=== PATIENT | male | born 1965 | race Caucasian/White ===

== ENCOUNTER 2017-01-18 18:29 | Emergency (ER) | payer OTHER ==
[~2017-01-18] VITALS: Ht 177.8 cm; Wt 106.6 kg
[~2017-01-18 18:29] MED LIST: ASPIRIN EC325 MG PO; DEPAKOTE ER250 MG PO; DIVALPROEX SOD500 MG PO; MELOXICAM15 MG PO; NORCO 5-325 TA1 EACH PO; NORCO 7.5-3251 EACH PO; PENICILLIN V P500 MG PO; PERCOCET 7.5-31 EACH PO; TOPIRAMATE50 MG PO; VALPROIC ACID250 MG PO; VENTOLIN HFA18 GM INH
[2017-01-18] MEDS ORDERED: DEPAKOTE ER500 MG PO (18:44)
[2017-01-18] MEDS ORDERED: PANTOPRAZOLE SO40 MG PO (18:45)
[2017-01-18] MEDS ORDERED: VITAMIN D250000 UNIT PO (18:47)
[2017-01-18] MEDS ORDERED: DEMADEX20 MG PO (18:47)
[2017-01-18] MEDS ORDERED: MOTRIN IB200 MG PO (18:48)
--- OUTSIDE RECORDS SUMMARY | 2017-01-18 18:54 | XMS ---
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 | Phone | + + + + Unavailable | Unavailable | + + + + PROBLEMS Unknown Problems ALLERGIES No Known Allergies SOCIAL HISTORY Never Assessed PLAN OF CARE + +---------+ | Activity | Details | + +---------+ +---+ | | +---+ + + + | Follow Up | November 24 Reason:null | + + + | Pending Test | X ray : Chest AP/Lat | + + + VITAL SIGNS + + + + | Height | 70 in | 2016-11-14 | + + + + | Weight | 246 lbs | 2016-11-14 | + + + + | BMI | 35.29 kg/m2 | 2016-11-14 | + + + + | Temperature | 97.1 degrees Fahrenheit | 2016-11-14 | + + + + | Heart Rate | 75 /min | 2016-11-14 | + + + + | Blood pressure systolic | 142 mm Hg | 2016-11-14 | + + + + | Blood pressure diastolic | 80 mm Hg | 2016-11-14 | + + + + MEDICATIONS + + +---------+ +--------+ + +--------+ | Medicati | Instruct | Dosage | Frequenc | Start | End Date | Duration | Status | | on | ions | | y | Date | | | | + + +---------+ +--------+ + +--------+ | Lamotrig | Orally | 2 | 12h | | | | Active | | ine 100 | Twice a | tablets | | | | | | | MG | day | | | | | | | + + +---------+ +--------+ + +--------+ | Depakote | | | | | | | Active | | 500 MG | | | | | | | | + + +---------+ +--------+ + +--------+ RESULTS No Results PROCEDURES No Known procedures IMMUNIZATIONS No Known Immunizations"
[2017-01-18] MEDS ORDERED: TRAMADOL HCL50 MG PO (21:20)
--- NOTE | 2017-01-19 06:43 | EKG ---
[facility] [address] [place], [place] [address] Signed Normal sinus rhythm Normal ECG No previous ECGs available Confirmed by MINA MTZ MD [id number] on 01/19/2017 6:43:04 AM Electronically Signed By: MINA MTZ MD 01/19/17 0643 PATIENT NAME: JOHNNY GRANDE Electrocardiogram DATE OF : 63 PHYSICIAN: MINA MTZ MD REPORT #: [id number] REPORT IS CONFIDENTIAL AND NOT TO BE RELEASED WITHOUT AUTHORIZATION
== END 2017-01-18 21:25 | disposition home or self-care (01) ==
LOC: ED 18:29
DX: R07.89 Other chest pain (principal); K86.89 Other specified diseases of pancreas; G40.909 Epilepsy, unspecified, not intractable, without status epilepticus; E78.00 Pure hypercholesterolemia, unspecified; G43.909 Migraine, unspecified, not intractable, without status migrainosus; Z98.890 Other specified postprocedural states; Z79.899 Other long term (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
CPT/HCPCS: 71010; 74170; 74178; 80053; 81001; 83690; 84484; 85025; 85379; 93005; 93010; 99284; Q9967

== ENCOUNTER 2017-04-11 17:43 | Emergency (ER) | payer OTHER ==
[~2017-04-11] VITALS: Ht 177.8 cm; Wt 106.6 kg
--- OUTSIDE RECORDS SUMMARY | ~2017-04-11 | XMS | Encounter Summary ---
Demographics + + + | Address | [address] | | | [place] [address] | + + + | Home Phone | | + + + | Preferred Language | Unknown | + + + | Marital Status | | + + + | Episcopal Affiliation | ASG | + + + [...] [address] | | [place] | [address] | +------+ + + + +-------+ Care Team Providers + +------+-------+ | Care Medical Affairs Specialist Name | Role | Phone | + +------+-------+ | Filippo Chen DO | PCP | tel | + +------+-------+ Reason for Referral Diagnostic Testing (Routine) +--------+--------+ + + + + | Status | Reason | Specialty | Diagnoses / | Referred By | Referred To | | | | | Procedures | Contact | Contact | +--------+--------+ + + + + | Closed | | Radiology | Diagnoses | Enestvedt, | Rad Ct Scan | | | | | Pancreatic | Paras Jorge, | [address] | | | | | mass | MD [address] | [address] | | | | | Procedures | [address] | Mailcode: | | | | | CT ABDOMEN | Jayshree Santillan | [facility] | | | | | WWO IV | [place], [place] | for Health | | | | | [place] | [address] | and Healing, | | | | | CT SCAN OF | Phone: | 3rd Floor | | | | | ABDOMEN | [phone] | [place], [place] | | | | | COMBO | Fax: | | | | | | | [phone] | Phone: | | | | | | | [phone] | | | | | | | Fax: | | | | | | | [phone] | +--------+--------+ + + + + Diagnostic Testing (Routine) +--------+--------+ + + + + | Status | Reason | Specialty | Diagnoses / | Referred By | Referred To | | | | | Procedures | Contact | Contact | +--------+--------+ + + + + | Closed | | Radiology | Diagnoses | Enestvedt, | Rad Ct Scan | | | | | Pancreatic | Brjessiha K, | [address] | | | | | mass | MD [address] | [address] | | | | | Procedures | [address] | Mailcode: | | | | | CT ABDOMEN | [address] | [facility] | | | | | WWO IV | [place], [place] | for Health | | | | | [place] | | and Healing, | | | | | CT SCAN OF | Phone: | 3rd Floor | | | | | ABDOMEN | [phone] | [facility] [place] | | | | | COMBO | Fax: | [address] | | | | | | [phone] | Phone: | | | | | | | [phone] | | | | | | | Fax: | | | | | | | [phone] | +--------+--------+ + + + + Reason for Visit Diagnostic Testing (Routine) +--------+--------+ + + + + | Status | Reason | Specialty | Diagnoses / | Referred By | Referred To | | | | | Procedures | Contact | Contact | +--------+--------+ + + + + | Closed | | Radiology | Diagnoses | Enestvedt, | Rad Ct Scan | | | | | Pancreatic | Brintha K, | [address] | | | | | mass | MD [address] | [address] | | | | | Procedures | Elias Fonseca | Mailcode: | | | | | CT ABDOMEN | [address] | [facility] | | | | | WWO IV | [place], [place] | for Health | | | | | [place] | [address] | and Healing, | | | | | CT SCAN OF | Phone: | 3rd Floor | | | | | ABDOMEN | [phone] | [place], [place] | | | | | COMBO | Fax: | [address] | | | | | | [phone] | Phone: | | | | | | | [phone] | | | | | | | Fax: | | | | | | | [phone] | +--------+--------+ + + + + Encounter Details +--------+ + + + + | Date | Type | Department | Care Team | Description | +--------+ + + + + | 03/11/ | Hospital | Radiology/Imaging | Paras Baker | | | 2017 | Encounter | Lab at [facility] [address] | MD Ania [address] | | | | | Oseas Cabrera | [facility] | | | | | Mailcode: CH3G | [place], [place] | | | | | [facility] | [address] | | | | | and Loretta [facility] | [phone] | | | | | Floor [place], [place] | | | | | | [address] | | | | | | [phone] | | | +--------+ + + + [...] on file | | + + + as of this encounter Medications at Time of Discharge + + + +---------+ + + | Medication | Sig. | Disp. | Refills | Start | End Date | | | | | | Date | | + + + +---------+ + + | acetaminophen 325 | Take 325 mg by mouth | | | | | | mg oral tablet | every four hours as | | | | | | | needed (pain). | | | | | + + + +---------+ + + | aspirin 325 mg | Take 325 mg by mouth | | | | | | oral tablet | once daily. | | | | | + + + +---------+ + + | divalproex DR 500 | Take 2 tablets by | | | 05/06/19 | | | mg oral | mouth two times | | | 16 | | | tablet,delayed | daily. | | | | | | release (DR/EC) | | | | | | + + + +---------+ + + | ERGOCALCIFEROL, | Take 50,000 Units by | | | | | | VITAMIN D2, (VITAMIN | mouth every seven | | | | | | D ORAL) | days. Takes every | | | | | | | Wednesday | | | | | + + + +---------+ + + | folic acid 1 mg | Take 1 mg by mouth | | | | | | oral tablet | [...] by mouth | | | | | | mg oral | every seven days. | | | | | | tabletIndications: | Takes every | | | | | | Psoriatic Arthritis | Indications: | | | | | | | PSORIATIC ARTHRITIS | | | | | + + + +---------+ + + | mometasone 0.1 % | Apply 1 applicator | | | | | | topical cream | [...] | + + + +---------+ + + as of this encounter Plan of Treatment Not on fileas of this encounter Results CT ABDOMEN WWO IV CONTRAST (03/11/2017 11:16 AM) [...] report as now presented. | + + in this encounter Visit Diagnoses + + | Diagnosis | + + | Pancreatic mass | + + | Unspecified disease of pancreas | + + Administered Medications + +---------+ +--------+------+------+ | Medication Order | MAR | Action | Dose | Rate | Site | | | Action | Date | | | | + +---------+ +--------+------+------+ | iohexol (OMNIPAQUE) 350 mg | IV Push | 03/11/20 | 125 mL | | | | iodine/mL injection 125 mL 125 | | 17 11:45 | | | | | mL, intravenous, ONCE, 1 dose, | | PST | | | | | Vero 03/11/17 at 1145 | | | | | | + +---------+ +--------+------+------+ +---+---+ | | | +---+---+ in this encounter"
--- OUTSIDE RECORDS SUMMARY | ~2017-04-11 | XMS | Encounter Summary ---
Demographics + + + | Address | [address] | | | [place] [address] | + + + | Home Phone | | + + + | Preferred Language | Unknown | + + + | Marital Status | | + + + | Confucianism Affiliation | ASG | + + + | Race | White | + + + | Ethnic Group | Not or | + + + Author + + + | Author | [facility] | + + + | Organization | [facility] | + + + | Address | Unknown | + + + | Phone | Unavailable | + + + Support +------+ + + + +-------+ | Name | Relationship | Address | Phone | +------+ + + + +-------+ ECON | [address] | | [place] | [address] | +------+ + + + +-------+ Care Team Providers + +------+-------+ | Care Commercial Real Estate Appraiser Name | Role | Phone | + +------+-------+ | Filippo Chen DO | PCP | tel | + +------+-------+ Reason for Referral Consultation (Urgent) + +--------+ + + + + | Status | Reason | Specialty | Diagnoses / | Referred By | Referred To | | | | | Procedures | Contact | Contact | + +--------+ + + + + | Authorized | | Gastroenterol | Diagnoses | Enestvedt, | [employer] [facility] | | | | ogy | Pancreatic | Paras Jorge, | [address] | | | | | mass | MD [address] | [address] | | | | | Epigastric | Eli[address]seca | Mailcode: | | | | | pain | Jayshree Santillan | [facility] | | | | | Elevated | [place], [place] | for Health | | | | | lipase | [address] | and Healing, | | | | | Procedures | Phone: | 6th floor | | | | | CONSULT TO | [phone] | [place], [place] | | | | | GASTROENTERO | Fax: | [address] | | | | | LOGY | [phone] | Phone: | | | | | | | [phone] | | | | | | | Fax: | | | | | | | [phone] | + +--------+ + + + + Diagnostic Testing (Routine) [...] | | | | WWO IV | [facility] [place] | for Health | | | | | [place] | [address] | and Healing, | | | | | CT SCAN OF | Phone: | 3rd Floor | | | | | ABDOMEN | [phone] | [place], [place] | | | | | COMBO | Fax: | [address] | | | | | | [phone] | Phone: | | | | | | | [phone] | | | | | | | Fax: | | | | | | | [phone] | +--------+--------+ + + + + Encounter Details +--------+ + + + + | Date | Type | Department | Care Team | Description | +--------+ + + + + | 02/24/ | Air Traffic Control Manager | Digestive Health | Paras Baker | Pancreatic mass | | 2017 | | Center at [facility] 4th | MD Ania [address] | (Primary Dx); | | | | Floor [address] | [facility] | Epigastric pain; | | | | [facility] | [place], [place] | Elevated lipase | | | | Mailcode: UHN83 | [address] | | | | | Pratik Daltonon | [phone] | | | | | [address] [place], [place] | | | | | | [address] | | | | | | [phone] | | | +--------+ + + + [...] Service Account, Radiant Res In Interface - 02/25/2017 5:25 PM [...] Diagnosis | + + | Pancreatic mass - Primary | + + | Unspecified disease of pancreas | + + | Epigastric pain | + + | Abdominal pain, epigastric | + + | Elevated lipase | + + | Other nonspecific abnormal serum enzyme levels | + +"
--- OUTSIDE RECORDS SUMMARY | ~2017-04-11 | XMS | Encounter Summary ---
Demographics + + + | Address | [address] | | | [place] [address] | + + + | Home Phone | | + + + | Preferred Language | Unknown | + + + | Marital Status | | + + + | Protestant Affiliation | ASG | + + + [...] [address] | | [place] | [address] | +------+ + + + +-------+ Care Team Providers + +------+-------+ | Care Color Maker Name | Role | Phone | + +------+-------+ | Filippo Chen DO | PCP | tel | + +------+-------+ Reason for Visit + + + | [...] | | | Stay [address] | | | | | | [facility] | | | | | | Mailcode: UHN65 | | | | | | Pratik Rivers | | | | | | [address] [place], [place] | | | | | | [address] | | | | | | [phone] | | | +--------+ + + + [...] | | | +--------+ + + + in this encounter Social History + +-------+ [...] + + + as of this encounter Instructions Patient Instructions - Lily Mooney RN - 04/06/2017 4:27 PM PSTFormatting of this note m ay be different from the original. PREOPERATIVE INSTRUCTIONS [...] perfume, lotions or powder. Remove any nail malay from at least one fingernail. Do not [...] Surgery Check in Locations Day Stay Unit [facility], fourth floor Room 451 Surgery Check in Time: Someone from your surgeon's office or [facility] will provide you with information regarding [...] it is after office hours, call the [facility] pipe threading machine operator at [phone] and ask them to page your doc tor. in this encounter Plan of Treatment Not on fileas of this encounter Visit Diagnoses Not on filein this encounter"
--- OUTSIDE RECORDS SUMMARY | ~2017-04-11 | XMS | Encounter Summary ---
Demographics + + + | Address | [address] | | | [place] [address] | + + + | Home Phone | | + + + | Preferred Language | Unknown | + + + | Marital Status | | + + + | Confucianism Affiliation | ASG | + + + | Race | White | + + + | Ethnic Group | Not or | + + + Author + + + | Author | [facility] | + + + | Organization | [facility] | + + + | Address | Unknown | + + + | Phone | Unavailable | + + + Support +------+ + + + +-------+ | Name | Relationship | Address | Phone | +------+ + + + +-------+ ECON | [address] | | [place] | [address] | +------+ + + + +-------+ Care Team Providers + +------+-------+ | Care Printing Services Coordinator Name | Role | Phone | [...] | | 2017 | | Center at [facility] 6th | MD Ania [address] | Received (02/24/2017 | | | | Floor [address] | Raymundo Martell | CT A/P- Carol | | | | Deborah Mailcode: [address]D | [place], [place] | [facility]) | | | | [facility] | [address] | | | | | and Loretta, 6th | [phone] | | | | | floor [place], [place] | | | | | | [address] | | | | | | [phone] | | | +--------+ + + + [...]
--- OUTSIDE RECORDS SUMMARY | ~2017-04-11 | XMS | Encounter Summary ---
Demographics + + + | Address | [address] | | | [place] [address] | + + + | Home Phone | | + + + | Preferred Language | Unknown | + + + | Marital Status | | + + + | Holiness Affiliation | ASG | + + + [...] [address] | | [place] | [address] | +------+ + + + +-------+ Care Team Providers + +------+-------+ | Care Engraved Roller Inspector Name | Role | Phone | + +------+-------+ | Filippo Chen DO | PCP | tel | + +------+-------+ Reason for Visit + + + | Reason | Comments | + + + | Blood Test Results | | + + + Encounter Details +--------+ + + + + | Date | Type | Department | Care Team | Description | +--------+ + + + + | 03/16/ | Abstract | Digestive Health | Taiwo Tilley, | Blood Test Results | | 2017 | | [place] at [facility] 6th | [address] | | | | | Floor [address] | Raymundo Martell Tyrell | | | | | Deborah Mailcode: CH[address]D | [place], [place] | | | | | [facility] | [address] | | | | | [facility] Loretta, 6th | [phone] | | | | | floor [place], [place] | | | | | | [address] | | | | | | [phone] | | | +--------+ + + + [...]
--- OUTSIDE RECORDS SUMMARY | ~2017-04-11 | XMS | Encounter Summary ---
Demographics + + + | Address | [address] | | | [place] [address] | + + + | Home Phone | | + + + | Preferred Language | Unknown | + + + | Marital Status | | + + + | Yazidi Affiliation | ASG | + + + | Race | White | + + + | Ethnic Group | Not or | + + + Author + + + | Author | [facility] | + + + | Organization | [facility] | + + + | Address | Unknown | + + + | Phone | Unavailable | + + + Support +------+ + + + +-------+ | Name | Relationship | Address | Phone | +------+ + + + +-------+ ECON | [address] | | [place] | [address] | +------+ + + + +-------+ Care Team Providers + +------+-------+ | Care Compressed Yeast Supervisor Name | Role | Phone | + +------+-------+ | Filippo Chen DO | PCP | tel | + +------+-------+ Encounter Details +--------+ + + + + | Date | Type | Department | Care Team | Description | +--------+ + + + + | 02/24/ | Outside | Digestive Health | Filippo Chen DO | | | 2017 | Referral | Center at [facility] 4th | [address] | | | | Order | Floor [address] | [place], [place] | | | | | [facility] | [address] | | | | | Mailcode: UHN83 | | | | | | Pratik Rivers | | | | | | [address] [place], [place] | | | | | | [address] | | | | | | [phone] | | | +--------+ + + + [...] of this encounter Plan of Treatment + +--------+ + + | Name | Priori | Associated Diagnoses | Order Schedule | | | ty | | | + +--------+ + + | EUS UPPER | Routin | Mass of pancreas | Expected: 02/24/2017 | | | e | | | + +--------+ + + as of this encounter Visit Diagnoses + + | Diagnosis | + + | Mass of pancreas - Primary | + + | Unspecified disease of pancreas | + +"
--- OUTSIDE RECORDS SUMMARY | ~2017-04-11 | XMS | Encounter Summary ---
Demographics + + + | Address | [address] | | | [place] [address] | + + + | Home Phone | | + + + | Preferred Language | Unknown | + + + | Marital Status | | + + + | Zoroastrianism Affiliation | ASG | + + + [...] [address] | | [place] | [address] | +------+ + + + +-------+ Care Team Providers + +------+-------+ | Care Right Of Way Man Name | Role | Phone | [...] 2016 | Encounter | Services [address] | MD Ania [address] | | | | | [address] [facility] | [facility] | | | | | [place], [place] | [place], [place] | | | | | [address] | [address] | | | | | | [phone] | | | | | | | [...] Medications at Time of Discharge + + +--------+---------+ + + | Medication | Sig. | Disp. | Refills | Start | End Date | | | | | | Date | | + + +--------+---------+ + + | acetaminophen 325 | Take 325 mg by mouth | | | | | | mg oral tablet | every four hours as | | | | | | | needed (pain). | | | | | + + +--------+---------+ + + | divalproex DR 500 | Take 2 tablets by | | | 05/06/19 | | | mg oral | mouth two times | | | 16 | | | tablet,delayed | daily. | | | | | | release (DR/EC) | | | | | | + + +--------+---------+ + + | ERGOCALCIFEROL, | Take 50,000 Units by | | | | | | VITAMIN D2, (VITAMIN | mouth every seven | | | | | | D ORAL) | days. Takes every | | | | | | | Wednesday | | | | | + + +--------+---------+ + + | folic acid 1 mg | Take 1 mg by mouth | | | | | | oral tablet | once daily. 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 | | | | | | tabletIndications: | Takes every | | | | | | Psoriatic Arthritis | Indications: | | | | | | | PSORIATIC ARTHRITIS | | | | | + + +--------+---------+ + + | mometasone 0.1 % | [...] | | | | | + + +--------+---------+ + + as of this encounter Plan of Treatment Not on fileas of this encounter Results OUTSIDE BODY - READ REQUEST (01/18/2017) + + + | Specimen | Performing Laboratory | + + + | | [facility] RADIOLOGY VOICE RECOGNITION | + + + [...] Procedure Note | + + | Service Enoc, Angélicaant Res In Interface - 02/25/2017 5:25 PM [...]
--- OUTSIDE RECORDS SUMMARY | ~2017-04-11 | XMS | Encounter Summary ---
Demographics + + + | Address | [address] | | | [place] [address] | + + + | Home Phone [...] + + + | Author | [facility] | + + + | Organization | [facility] | + + + | Address | Unknown | + + + | Phone | Unavailable | + + + Support +------+ + + + +-------+ | Name | Relationship | Address | Phone | +------+ + + + +-------+ ECON | [address] | | [place] | [address] | +------+ + + + +-------+ Care Team Providers + +------+-------+ | Care Change Control Coordinator Name | Role | Phone | + +------+-------+ | Filippo Chen DO | PCP | tel | + +------+-------+ Reason for Referral PROC - Dept/Practice Procedure (Urgent) +--------+--------+ + + + + | Status | Reason | Specialty | Diagnoses / | Referred By | Referred To | | | | | Procedures | Contact | Contact | +--------+--------+ + + + + | Closed | | Gastroenterol | Diagnoses | Jarek, | Gas Gi Proc | | | | ogy | Idiopathic | MD Taiwo | [address] | | | | | chronic | [address] | Camilo Fonseca | | | | | pancreatitis | [facility] | [address] | | | | | ([facility]) | Rd | Mailcode: | | | | | Procedures | [place], [place] | UHN83 | | | | | CONSULT TO | [address] | Bureau | | | | | GI PROCEDURE | Phone: | [address] | | | | | UNIT: EUS | [phone] | [place], | | | | | [address] | Fax: | [place] [address] | | | | | ANESTH UPPER | [phone] | Phone: | | | | | GI | | [phone] | | | | | ENDOSCOPIC | | Fax: | | | | | VISUALIZE | | [phone] | | | | | CT UPPR GI | | | | | | | ENDO W FN | | | | | | | BX, US EXAM | | | +--------+--------+ + + + + Reason for Visit + + + | Reason | Comments | + + + | New patient | | | consultation | | + + + Consultation (Urgent) + +--------+ + + + + | Status | Reason | Specialty | Diagnoses / | Referred By | Referred To | | | | | Procedures | Contact | Contact | + +--------+ + + + + | Authorized | | Gastroenterol | Diagnoses | Enestvedt, | Gas Faculty | | | | ogy | Pancreatic | Lauriejessiha K, | [address] | | | | | mass | MD [address] | | | | | Epigastric | [address] | Mailcode: | | | | | pain | [address] | [facility] | | | | | Elevated | [place], [place] | for Health | | | | | lipase | [address] | and Healing, | | | | | Procedures | Phone: | 6th floor | | | | | CONSULT TO | [phone] | [place], [place] | | | | | GASTROENTERO | Fax: | [address] | | | | | LOGY | [phone] | Phone: | | | | | | | [phone] | | | | | | | Fax: | | | | | | | [phone] | + +--------+ + + + + Encounter Details +--------+---------+ + + + | Date | Type | Department | Care Team | Description | +--------+---------+ + + + | 03/11/ | Office | Digestive Health | Taiwo Tilley, | Idiopathic chronic | | 2017 | Visit | Center at [facility] 6th | [address] | pancreatitis (HCC) | | | | Floor [address] | [address] | (Primary Dx) | | | | Ave Mailcode: CH6D | [place], [place] | | | | | [facility] | [address] | | | | | and Healing, 6th | [phone] | | | | | floor [place], [place] | | | | | | [address] | | | | | | [phone] | | | +--------+---------+ + + + [...] + + + as of this encounter Last Filed Vital Signs + + + + | Vital Sign | Reading | Time Taken | + + + + | Blood Pressure | 125/80 | 03/11/2017 1:43 PM PST | + + + + | Pulse | 65 | 03/11/2017 1:43 PM PST | + + + + | Temperature | 36.3 C (97.4 F) | 03/11/2017 1:43 PM PST | + + + + | Respiratory Rate | - | - | + + + + | Oxygen Saturation | - | - | + + + + | Inhaled Oxygen | - | - | | Concentration | | | + + + + | Weight | 107.3 kg (236 lb 8 | 03/11/2017 1:43 PM PST | | | oz) | | + + + + | Height | 177.8 cm (5' 10") | 03/11/2017 1:43 PM PST | + + + + | Body Mass Index | 33.93 | 03/11/2017 1:43 PM PST | + + + + in this encounter Progress Notes Taiwo Tilley MD - 03/11/2017 12:50 PM PSTFormatting of this note may be different from the original. [facility] Patient Name: Daysi Flaherty MR#: [id number] : 1965 This is a 51 y/o [...] in the last one years. [facility]. On one or two occasion [...] 6 week with no resolution. He has [place] 1 stools. He is non-smoker (ex-smoker) and [...] upon disco ntinue. Meloxicam Diarrhea Bowel incontinence Mryaclh-Sgy-Dpg Reductase Inhibitors Seizures Increased frequency of seizures, [...] add Miralax 17 gm PO bid. Husam George MD - 03/11/2017 12:50 PM PST in this encounter Plan of Treatment + +--------+ + + | Name | Priori | Associated Diagnoses | Order Schedule | | | ty | | | + +--------+ + + | IGG IV SUBCLASS, SERUM | Routin | Idiopathic chronic | Expected: 03/11/2017 | | | e | pancreatitis (HCC) | (Approximate), | | | | | Expires: 04/11/2018 | + +--------+ + + | JULIANN BY YAQUELIN W/REFLEX TO IFA | Routin | Idiopathic chronic | Expected: 03/11/2017 | | PATTERN & AB ID WHEN INDICATED | e | pancreatitis (HCC) | (Approximate), | | | | | Expires: 04/11/2018 | + +--------+ + + | LIPASE, PLASMA | Routin | Idiopathic chronic | Expected: 03/11/2017 | | | e | pancreatitis (HCC) | (Approximate), | | | | | Expires: 04/11/2018 | + +--------+ + + | COMPLETE METABOLIC SET | Routin | Idiopathic chronic | Expected: 03/11/2017 | | (NA,K,CL,CO2,BUN,CREAT,GLUC,CA, | e | pancreatitis (HCC) | (Approximate), | | T,ALT,BILI TOTAL,ALK | | | Expires: 04/11/2018 | | PHOS,ALB,PROT TOTAL) | | | | + +--------+ + + | CANCER AG GI (19-9), SERUM | Routin | Idiopathic chronic | Expected: 03/11/2017 | | | e | pancreatitis (HCC) | (Approximate), | | | | | Expires: 04/11/2018 | + +--------+ + + | IGG IV SUBCLASS, SERUM | Routin | Idiopathic chronic | Expected: 03/11/2017 | | | e | pancreatitis (HCC) | (Approximate), | | | | | Expires: 04/11/2018 | + +--------+ + + | JULIANN BY YAQUELIN W/REFLEX TO IFA | Routin | Idiopathic chronic | Expected: 03/11/2017 | | PATTERN & AB ID WHEN INDICATED | e | pancreatitis (HCC) | (Approximate), | | | | | Expires: 04/11/2018 | + +--------+ + + | COMPLETE METABOLIC SET | Routin | Idiopathic chronic | Expected: 03/11/2017 | | (NA,K,CL,CO2,BUN,CREAT,GLUC,CA, | e | pancreatitis (HCC) | (Approximate), | | T,ALT,BILI TOTAL,ALK | | | Expires: 04/11/2018 | | PHOS,ALB,PROT TOTAL) | | | | + +--------+ + + | CANCER AG GI (19-9), SERUM | Routin | Idiopathic chronic | Expected: 03/11/2017 | | | e | pancreatitis (HCC) | (Approximate), | | | | | Expires: 04/11/2018 | + +--------+ + + as of this encounter Visit Diagnoses + + | Diagnosis | + + | Idiopathic chronic pancreatitis (HCC) - Primary | + +
--- OUTSIDE RECORDS SUMMARY | ~2017-04-11 | XMS | Encounter Summary ---
Demographics + + + | Address | [address] | | | [place] [address] | + + + | Home Phone [...] [address] | | [place] | [address] | +------+ + + + +-------+ Care Team Providers + +------+-------+ | Care Car Varnisher Name | Role | Phone | + [...] [address] | | | | | | [facility] | | | | | | Mailcode: UHN65 | | | | | | Pratik Rivers | | | | | | [address] [place], [place] | | | | | | [address] | | | | | | [phone] | | | +--------+ + + + [...] + + | Cal | 04/09/17; 1120; Treas Jorge RN; | 04/09/17 1120 by | [...] perfume, lotions or powder. Remove any nail indonesian from at least one fingernail. Do not [...] Surgery Check in Locations Day Stay Unit [facility], fourth floor Room 4513 Surgery Check in Time: Someone from your surgeon's office or [facility] will provide you with information regarding [...] it is after office hours, call the [facility] black powder glazing operator at [phone] and ask them to page your doc tor. in this encounter Plan of Treatment Not on fileas of this encounter Visit Diagnoses Not on filein this encounter"
--- OUTSIDE RECORDS SUMMARY | ~2017-04-11 | XMS | Encounter Summary ---
Demographics + + + | Address | [address] | | | [place] [address] | + + + | Home Phone | | + + + | Preferred Language | Unknown | + + + | Marital Status | | + + + | Adventism Affiliation | ASG | + + + | Race | White | + + + | Ethnic Group | Not or | + + + Author + + + | Author | [facility] | + + + | Organization | [facility] | + + + | Address | Unknown | + + + | Phone | Unavailable | + + + Support +------+ + + + +-------+ | Name | Relationship | Address | Phone | +------+ + + + +-------+ ECON | [address] | | [place] | [address] | +------+ + + + +-------+ Care Team Providers + +------+-------+ | Care Crystal Lapper Name | Role | Phone | + +------+-------+ | Filippo Pinon DO | PCP | tel | + +------+-------+ Encounter Details +--------+ + + + + | Date | Type | Department | Care Team | Description | +--------+ + + + + | 03/15/ | Inside | Digestive Health | Yanni Tilley, | | | 2017 | Referral | Center at [facility] 4th | [address] | | | | Order | Floor [address] | [facility] | | | | | [facility] | [place], [place] | | | | | Mailcode: [address]HN83 | [address] | | | | | Pratik Rivers | [phone] | | | | | [address] [place], [place] | | | | | | [address] | | | | | | [phone] | | | +--------+ + + + [...] Not on fileas of this encounter Results EUS UPPER (04/09/2017 1:07 PM) + + + | Specimen | Performing Laboratory | + + + | | [facility] | + + + + + | Narrative | + + | Procedure Date: 04/09/2017 Patient Name: Daysi Flaherty Order #: [id number] | | Date of : 1965 CSN: [id number] Admit Type: Ambulatory Room: GI 3 | | Procedure: Upper EUS Indications: Abnormal | | ultrasound of the abdomen Providers: YANNI TILLEY MD (Doctor), | | LUIS A MAYES RN (Nurse), JYOTI RODRIGUEZ, | | Administrative Services Specialist (Administrative Services Specialist) Referring MD: YANNI TILLEY MD Requesting | | Provider: Medicines: [...] after the procedure. The Olympus | | [id number] AL5 Linear Echoendoscope #[id number] | | was introduced through the mouth, and advanced to the | | second part of duodenum. The Olympus [id number] | | Endoscope #[id number] was introduced through the | | mouth, [...] A stylet was | | used. A gerontology aide was present and performed a preliminary cytologic [...] performed the | | entire procedure. MD YANNI Blackburn MD 04/09/2017 3:29:43 PM This | | report has been signed electronically. Number of Addenda: 0 Note Initiated On: | | 04/09/2017 1:07 PM CC Letter to: FILIPPO PINON DO | + + in this encounter Visit Diagnoses + + | Diagnosis | + + | Idiopathic chronic pancreatitis (HCC) - Primary | + +"
--- OUTSIDE RECORDS SUMMARY | ~2017-04-11 | XMS | Encounter Summary ---
Demographics + + + | Address | [address] | | | [place] [address] | + + + | Home Phone [address] | | [place] | [address] | +------+ + + + +-------+ Care Team Providers + +------+-------+ | Care Seismic Computer Name | Role | Phone | + [...] | | | ogy | Pancreatic | Parsa Jorge, | [address] | | | | | mass | MD [address] | | | | | Epigastric | [address] | Mailcode: | | | | | pain | [address] | [facility] | | | | | Elevated | [place], [place] | for Health | | | | | lipase | [address] | and Healing, | | | | | Procedures | Phone: | 6th floor | | | | | CONSULT TO | [phone] | [place], [place] | | | | | GASTROENTERO | Fax: | [address] | | | | | LOGY | [phone] | Phone: | | | | | | | [phone] | | | | | | | Fax: | | | | | | | [phone] | + +--------+ + + + + [...] | | | | [address] | [facility] [place] | for Health | | | | | [place] | [address] | and Healing, | | | | | CT SCAN OF | Phone: | 3rd Floor | | | | | ABDOMEN | [phone] | [place], [place] | | | | | COMBO | Fax: | [address] | | | | | | [phone] | Phone: | | | | | | | [phone] | | | | | | | Fax: | | | | | | | [phone] | +--------+--------+ + + + + Encounter Details +--------+ + + + + | Date | Type | Department | Care Team | Description | +--------+ + + + + | 02/24/ | Glove Printer | Digestive Health | Paras Baker | Pancreatic mass | | 2017 | | Center at [facility] 4th | MD Ania [address] | (Primary Dx); | | | | Floor [address] | [facility] | Epigastric pain; | | | | [facility] | [place], [place] | Elevated lipase | | | | Mailcode: UHN83 | [address] | | | | | Pratik Daltonon | [phone] | | | | | [address] [place], [place] | | | | | | [address] | | | | | | [phone] | | | +--------+ + + + [...]
--- OUTSIDE RECORDS SUMMARY | ~2017-04-11 | XMS | Encounter Summary ---
Demographics + + + | Address | [address] | | | [place] [address] | + + + | Home Phone [address] | | [place] | [address] | +------+ + + + +-------+ Care Team Providers + +------+-------+ | Care Excellence Coach Name | Role | Phone | [...] To Surgery | | 2017 | | Center [address] | | - | | | | Hector Cabrera Mailcode: | | | | | | [facility] | | | | | | Health and Healing, | | | | | | 6th floor [place], | | | | | | [place] [address] | | | | | | [phone] | | | +--------+ + + + [...]
--- OUTSIDE RECORDS SUMMARY | ~2017-04-11 | XMS | Encounter Summary ---
Demographics + + + | Address | [address] | | | [place] [address] | + + + | Home Phone [...] + + | Author | [facility] | + + + | Organization | [facility] | + + + | Address | Unknown | + + + | Phone | Unavailable | + + + Support +------+ + + + +-------+ | Name | Relationship | Address | Phone | +------+ + + + +-------+ ECON | [address] | | [place] | [address] | +------+ + + + +-------+ Care Team Providers + +------+-------+ | Care Inventory Control Planner Name | Role | Phone | + [...] | Services [address] | MD Ania [address] | | | | | Eli[address] [facility] | [facility] | | | | | [place], [place] | [place], [place] | | | | | [address] | [address] | | | | | | [phone] | | | | | | | [...] Laboratory | + + + | | [facility] RADIOLOGY VOICE RECOGNITION | + [...]
--- OUTSIDE RECORDS SUMMARY | ~2017-04-11 | XMS | Encounter Summary ---
Demographics + + + | Address | [address] | | | [place] [address] | + + + | Home Phone | | + + + | Preferred Language | Unknown | + + + | Marital Status | | + + + | Rastafari Affiliation | ASG | + + + | Race | White | + + + | Ethnic Group | Not or | + + + Author + + + | Author | [facility] | + + + | Organization | [facility] | + + + | Address | Unknown | + + + | Phone | Unavailable | + + + Support +------+ + + + +-------+ | Name | Relationship | Address | Phone | +------+ + + + +-------+ ECON | [address] | | [place] | [address] | +------+ + + + +-------+ Care Team Providers + +------+-------+ | Care Patrol Supervisor Name | Role | Phone | + +------+-------+ | Filippo Chen DO | PCP | tel | + +------+-------+ Reason for Visit AUTH/CERT +--------+--------+ + + [...] + + | 04/09/ | Anesthesia | Digestive Health | Yanni Lim | | | 2018 | | [place] at [facility] 4th | MD Anil [address] [facility] | | | | | Floor [address] [facility] [address] | [facility] | | | | | [facility] | [place], [place] | | | | | Mailcode: [address]83 | [address] | | | | | Prat[address] Rivers | [phone] | | | | | [address] [place], [place] | | | | | | [address] | | | | | | [phone] | | | +--------+ + + + [...] encounter Visit Diagnoses Not on filein this encounter Administered Medications + +--------+ +------+------+------+ | Medication Order | MAR | Action | Dose | Rate | Site | | | Action | Date | | | | + +--------+ +------+------+------+ | midazolam (VERSED) injection | Given | | 2 mg | | | | INTRAPROCEDURE PRN, Starting Fri | | 8 13:04 | | | | | 04/09/17 at 1304, Until Fri | | PST | | | | | 04/09/17 at 1422 | | | | | | + +--------+ +------+------+------+ +---+---+ | | | +---+---+ + +---------+ + +--------+---+ | propofol (DIPRIVAN) injection | New Bag | | 100 | 63.96 | | | INTRAPROCEDURE CONTINUOUS PRN, | | 8 13:08 | mcg/kg/m | mL/hr | | | Starting Wed04/09/17 at 1308, | | PST | in | | | | Until Wed04/09/17 at 1422 | | | | | | + +---------+ + +--------+---+ +---+---+ | | | +---+---+ + + + +---+---+---+ | sodium chloride 0.9% IV | given by | | | | | | infusion 50 mL/hr, intravenous, | | 8 13:09 | | | | | CONTINUOUS, Starting 04/09/17 | anesthes | PST | | | | | at 1100, Until Wed04/09/17 at | iology | | | | | | 1704 | | | | | | + + + +---+---+---+ + + +---+---+---+ | New Bag | | | | | | | 8 13:22 | | | | | | PST | | | | + + +---+---+---+ | given by anesthesiology | | | | | | | 8 14:21 | | | | | | PST | | | | + + +---+---+---+ +---+---+ | | | +---+---+ in this encounter"
--- OUTSIDE RECORDS SUMMARY | ~2017-04-11 | XMS | Encounter Summary ---
Demographics + + + | Address | [address] | | | [place] [address] | + + + | Home Phone [address] | | [place] | [address] | +------+ + + + +-------+ Care Team Providers + +------+-------+ | Care Yarder Boss Name | Role | Phone | + [...] | Pancreatic | Paras Jorge, | [address] | | | | | mass | MD [address] | [address] | | | | | Procedures | [address] | Mailcode: | | | | | CT ABDOMEN | Jayshree Santillan | [facility] | | | | | [address] IV | [place], [place] | for Health | | | | | [place] | [address] | and Healing, | | | | | CT SCAN OF | Phone: | 3rd Floor | | | | | ABDOMEN | [phone] | [place], [place] | | | | | COMBO | Fax: | | | | | | | [phone] | Phone: | | | | | | | [phone] | | | | | | | Fax: | | | | | | | [phone] | +--------+--------+ + + + + Diagnostic [...] | | | | WWO IV | [place], [place] | for Health | | | | | [place] | | and Healing, | | | | | CT SCAN OF | Phone: | 3rd Floor | | | | | ABDOMEN | [phone] | [facility] [place] | | | | | COMBO | Fax: | [address] | | | | | | [phone] | Phone: | | | | | | | [phone] | | | | | | | Fax: | | | | | | | [phone] | +--------+--------+ + + + + Reason [...] | | | | [address] IV | [place], [place] | for Health | | | | | [place] | [address] | and Healing, | | | | | CT SCAN OF | Phone: | 3rd Floor | | | | | ABDOMEN | [phone] | [place], [place] | | | | | COMBO | Fax: | [address] | | | | | | [phone] | Phone: | | | | | | | [phone] | | | | | | | Fax: | | | | | | | [phone] | +--------+--------+ + + + + Encounter Details +--------+ + + + + | Date | Type | Department | Care Team | Description | +--------+ + + + + | 03/11/ | Hospital | Radiology/Imaging | Paras Baker | | | 2017 | Encounter | Lab at [facility] [address] | MD [address] | | | | | [address] | [facility] | | | | | Mailcode: CH3G | [place], [place] | | | | | [facility] | [address] | | | | | and [facility] | [phone] | | | | | Floor [place], [place] | | | | | | [address] | | | | | | [phone] | | | +--------+ + + + [...]
--- OUTSIDE RECORDS SUMMARY | ~2017-04-11 | XMS | Encounter Summary ---
Demographics + + + | Address | [address] | | | [place] [address] | + + + | Home Phone [...] [address] | | [place] | [address] | +------+ + + + +-------+ Care Team Providers + +------+-------+ | Care Principal Process Engineer Name | Role | Phone | [...] + + | 04/09/ | Hospital | [place] [address] [address] | Yanni Tilley, | | | 2018 - | Encounter | [address] | Laurence Leonardo | | | | | [facility] | Alejo, MD Roger, | | | 04/10/ | | HOSP[facility] [place], | MD Amado [address] | | | 2017 | | [place] [address] | [address] | | | | | [phone] | [place], [place] | | | | | | [address] | | | | | | [phone] | | | | | | | [...] AM PST | + + + + in this encounter Discharge Summaries Amado Roger MD - 04/10/2017 7:24 AM PSTFormatting of this note may be different fr om the original. [facility] Discharge Summary Discharging Provider: Amado Roger MD Discharging Attending Physician: Amado Roger MD PCP: Filippo Pinon DO Admission Date: 04/09/2017 Discharge Date: 04/10/17 Hospital Stay: 1 day(s) Reason for Admission: 51 yo man with hx of obesity, seizures, VIKTORIA on BiPAP who has had 6 months of abdominal pain , weight loss (30 lbs), dysphagia/sore throat who was referred to [facility] GI for ERCP [...] upon disco ntinue. Meloxicam Diarrhea Bowel incontinence Ezaluar-Iqm-Qzl Reductase Inhibitors Seizures Increased frequency of seizures, [...] focal neuro deficits Amado Roger MD, MSc Plasma Center Technicianporcelain slusher Clinical Hospitalist and Medicine Teaching Services [facility] Pager: [phone] in this encounter Discharge Instructions Catherine Salamanca RN - 04/09/2017Home Care Instructions after EGD (Upper Endoscopy) with EU S (Endoscopic Ultrasound) You may resume your normal [...] hours or on weekends and holiday Hospital Sheet Metal Roofer toll free [phone]. [phone] and have the GI doctor menswear salesperson paged. The provider who performed your procedure: Yanni Tilley MD Results of your EGD/EUS: Fine needle aspiration of tissue at the pancreatic head. Patholo gy evaluating. Follow up Appointments with: Referring provider as needed. Thank you for choosing [facility]! Your primary care provider or referring provider will receive copies of the procedure repor t and all the pathology reports with recommendations for treatment if needed. If noted above that biopsies were taken or polyps removed you will receive the results in a pproximately 1 week. If you have not heard from us after 2 weeks please call for your result s. in this encounter Medications at Time of [...] liquid | 1700 g | 1 | /14/20 | | | glycol (MIRALAX) 17 | [...] Name | Priori | Associated Diagnoses | Date/Time | | | ty | | | + +--------+ + + | SURGICAL PATHOLOGY | Routin | | 04/09/2017 12:00 AM | | | e | | PST | + +--------+ + + | NON PHYSICIAN INDUSTRIAL CYTOLOGY | Routin | | 04/09/2017 12:00 AM | | | e | | PST | + +--------+ + + + +--------+ + + | Name | Priori | Associated Diagnoses | Order Schedule | | | ty | | | + +--------+ + + | SURGICAL PATHOLOGY | Routin | | Collect Now for 1 | | | e | | Occurrences starting | | | | | 04/09/2017 until | | | | | 04/09/2017 | + +--------+ + + | NON PHYSICIAN INDUSTRIAL CYTOLOGY | Routin | | One Time for 1 | | | e | | Occurrences starting | | | | | 04/09/2017 | + +--------+ + + as of this encounter Procedures + +--------+ [...] section. | + +--------+ + + + in this encounter Results EUS UPPER (04/09/2017 1:07 PM) + + + | Specimen | Performing Laboratory | + + + | | [facility] | + + + + + | Narrative | + + | Procedure Date: 04/09/2017 Patient Name: Daysi Flaherty Order #: [id number] | | Date of : 1965 CSN: [id number] Admit Type: Ambulatory Room: GI 3 | | Procedure: Upper EUS Indications: Abnormal | | ultrasound of the abdomen Providers: YANNI TILLEY MD (Doctor), | | LUIS A MAYES RN (Nurse), JYOTI RODRIGUEZ, | | Negative Developer (Negative Developer) Referring MD: YANNI TILLEY MD Requesting | [...] after the procedure. The Olympus | | [id number] AL5 Linear Echoendoscope #[id number] | | was introduced through the mouth, and advanced to the | | second part of duodenum. The Olympus [id number] | | Endoscope #[id number] was introduced through the | | mouth, [...] A stylet was | | used. A operations administrative assistant was present and performed a preliminary cytologic [...] 04/09/2017 1:07 PM CC Letter to: FILIPPO PINON, DO | + + CARDIOLOGY (04/09/2017)in this encounter Visit Diagnoses + + | Diagnosis | + + | Chronic pancreatitis, unspecified pancreatitis type (HCC) - Primary | + + | Idiopathic chronic pancreatitis (HCC) | + + Admitting Diagnoses + + | Diagnosis | + + | Other chronic pancreatitis - K86.1 (ICD-10-CM) - 577.1 (ICD-9-CM) - Idiopathic chronic | | pancreatitis (HCC) | + + Administered Medications + +--------+ + +------+------+ | Medication Order | MAR | Action | Dose | Rate | Site | | | Action | Date | | | | + +--------+ + +------+------+ | divalproex DR (DEPAKOTE) tablet | Given | | 1,000 mg | | | | 1,000 mg 1,000 mg, oral, TWICE | | 8 21:31 | | | | | DAILY, First dose on Wed04/09/17 | | PST | | | | | at 2100, Until Discontinued | | | | | | + +--------+ + +------+------+ +-------+ + +---+---+ | Given | | 1,000 mg | | | | | 8 09:03 | | | | | | PST | | | | +-------+ + +---+---+ +---+---+ | | | +---+---+ + +-------+ +------+---+---+ | folic acid (FOLVITE) tablet 1 | Given | | 1 mg | | | | mg 1 mg, oral, DAILY, First dose | | 8 21:31 | | | | | on Wed04/09/17 at 2000, Until | | PST | | | | | Discontinued | | | | | | + +-------+ +------+---+---+ +-------+ +------+---+---+ | Given | | 1 mg | | | | | 8 09:03 | | | | | | PST | | | | +-------+ +------+---+---+ +---+---+ | | | +---+---+ + +-------+ + +---+---+ | HYDROcodone-acetaminophen | Given | | 1 tablet | | | | (NORCO) 5-325 mg tablet 1-2 | | 8 07:42 | | | | | tablet 1-2 tablet, oral, EVERY 4 | | PST | | | | | HOURS NEEDED, Starting Fri | | | | | | | 04/09/17 at 1702, Until Sat | | | | | | | 04/10/17 at 1913, moderate pain | | | | | | + +-------+ + +---+---+ +-------+ + +---+---+ | Given | | 1 tablet | | | | | 8 12:04 | | | | | | PST | | | | +-------+ + +---+---+ +---+---+ | | | +---+---+ + +-------+ +--------+---+---+ | HYDROmorphone (DILAUDID) | Given | | 0.5 mg | | | | injection 0.2-0.5 mg 0.2-0.5 mg, | | 8 18:29 | | | | | intravenous, EVERY 2 HOURS | | PST | | | | | NEEDED, Starting 04/09/17 at | | | | | | | 1702, Until 04/10/17 at 1913, | | | | | | | severe pain | | | | | | + +-------+ +--------+---+---+ +-------+ +--------+---+---+ | Given | | 0.5 mg | | | | | 8 22:34 | | | | | | PST | | | | +-------+ +--------+---+---+ +---+---+ | | | +---+---+ + +-------+ +--------+---+---+ | HYDROmorphone (DILAUDID) | Given | | 0.5 mg | | | | injection 0.5 mg 0.5 mg, | | 8 15:01 | | | | | intravenous, ONCE, 1 dose, Fri | | PST | | | | | 04/09/17 at 1530 | | | | | | + +-------+ +--------+---+---+ +---+---+ | | | +---+---+ + +-------+ + +---+---+ | mometasone (ELOCON) 0.1 % cream | Given | | 1 | | | | 1 applicator 1 applicator, | | 8 09:04 | applicat | | | | topical, DAILY, First dose on Fri | | PST | or | | | | 04/09/17 at 1915, Until | | | | | | | Discontinued | | | | | | + +-------+ + +---+---+ +---+---+ | | | +---+---+ + +-------+ +------+---+---+ | ondansetron (ZOFRAN) injection | Given | | 4 mg | | | | 4 mg 4 mg, intravenous, ONCE, 1 | | 8 15:02 | | | | | dose, 04/09/17 at 1530 | | PST | | | | + +-------+ +------+---+---+ +---+---+ | | | +---+---+ + +-------+ +---------+---+---+ | promethazine (PHENERGAN) | Given | | 6.25 mg | | | | injection 6.25 mg 6.25 mg, | | 8 15:44 | | | | | intravenous, ONCE, 1 dose, Fri | | PST | | | [...] +---+---+ | | | +---+---+ in this encounter
--- OUTSIDE RECORDS SUMMARY | ~2017-04-11 | XMS | Encounter Summary ---
Demographics + + + | Address | [address] | | | [place] [address] | + + + | Home Phone [...] [address] | | [place] | [address] | +------+ + + + +-------+ Care Team Providers + +------+-------+ | Care Care Consultant Name | Role | Phone | + +------+-------+ | Filippo Chen DO | PCP | tel | + +------+-------+ Encounter Details +--------+ + + + + | Date | Type | Department | Care Team | Description | +--------+ + + + + | 01/18/ | Document-Sc | Health Information | Unknown . | | | 2017 | anned | Services [address] | | | | | | [address] | | | | | | [address] Mailcode: | | | | | | [address] [place] [address] | | | | | | [facility] | | | | | | [place], [place] | | | | | | [address] | | | | | | [phone] | | | +--------+ + + + [...] Not on fileas of this encounter Results RADIOLOGY (01/18/2017)in this encounter Visit Diagnoses Not on filein this encounter"
--- OUTSIDE RECORDS SUMMARY | ~2017-04-11 | XMS | Encounter Summary ---
Demographics + + + | Address | [address] | | | [place] [address] | + + + | Home Phone [...] [address] | | [place] | [address] | +------+ + + + +-------+ Care Team Providers + +------+-------+ | Care Pig Machine Operator Name | Role | Phone [...] | | | | | pancreatitis | [facility] | [address] | | | | | ([facility]) | Rd | Mailcode: | | | | | Procedures | [place], [place] | [address] | | | | | CONSULT TO | [address] | [place] | | | | | GI PROCEDURE | Phone: | [address] | | | | | UNIT: EUS | [phone] | [place], | | | | | LIMITED [place] | Fax: | [place] [address] | | | | | ANESTH UPPER | [phone] | Phone: | | | | | GI | | [phone] | | | | | ENDOSCOPIC | | Fax: | | | | | VISUALIZE | | [phone] | | | | | [place] UPPR GI | | | | | [...] | | | | | Elevated | [place], [place] | for Health | | | | | lipase | [address] | and Healing, | | | | | Procedures | Phone: | 6th floor | | | | | CONSULT TO | [phone] | [place], [place] | | | | | GASTROENTERO | Fax: | [address] | | | | | LOGY | [phone] | Phone: | | | | | | | [phone] | | | | | | | Fax: | | | | | | | [phone] | + +--------+ + + + + Encounter Details +--------+---------+ + + + | Date | Type | Department | Care Team | Description | +--------+---------+ + + + | 03/11/ | Office | Digestive Health | Taiwo Tilley, | Idiopathic chronic | | 2017 | Visit | Center at [facility] 6th | [address] | pancreatitis (HCC) | | | | Floor [address] | [address] | (Primary Dx) | | | | Ave Mailcode: CH6D | [place], [place] | | | | | [facility] | [address] | | | | | and Healing, 6th | [phone] | | | | | floor [place], [place] | | | | | | [address] | | | | | | [phone] | | | +--------+---------+ + + + [...] note may be different from the original. [facility] Patient Name: Daysi Flaherty MR#: [id number] : 1965 This is a 51 y/o [...] last one years. [facility]. On one or [...] 6 week with no resolution. He has [place] 1 stools. He is non-smoker (ex-smoker) and [...] upon disco ntinue. Meloxicam Diarrhea Bowel incontinence Cihpxlq-Hyf-Aik Reductase Inhibitors Seizures Increased frequency of seizures, [...]
--- OUTSIDE RECORDS SUMMARY | ~2017-04-11 | XMS | Encounter Summary ---
Demographics + + + | Address | [address] | | | [place] [address] | + + + | Home Phone [...] [address] | | [place] | [address] | +------+ + + + +-------+ Care Team Providers + +------+-------+ | Care Stripper Preliminary Name | Role | Phone | + [...] Lim | | | 2018 | | [place] at [facility] 4th | MD Anil [address] [facility] | | | | | Floor [address] [facility] | [facility] | | | | | [facility] | [place], [place] | | | | | Mailcode: [address] | [address] | | | | | [address] | [phone] | | | | | [address] [place], [place] | | | | | | [address] | | | | | | [phone] | | | +--------+ + + + [...]
--- OUTSIDE RECORDS SUMMARY | ~2017-04-11 | XMS | Encounter Summary ---
Demographics + + + | Address | [address] | | | [place] [address] | + + + | Home Phone [...] [address] | | [place] | [address] | +------+ + + + +-------+ Care Team Providers + +------+-------+ | Care Oil Plant Operator Name | Role | Phone | + +------+-------+ | Filippo Chen DO | PCP | tel | + +------+-------+ Encounter Details +--------+ + + + + | Date | Type | Department | Care Team | Description | +--------+ + + + + | 02/26/ | Procedure | Radiology/Imaging | | | | 2017 | Pass | Lab at [facility] [address] | | | | | | [address] | | | | | | Mailcode: CH3G | | | | | | [facility] | | | | | | and Healing, 3rd | | | | | | [place], [place] | | | | | | [address] | | | | | | [phone] | | | +--------+ + + + [...]
--- OUTSIDE RECORDS SUMMARY | ~2017-04-11 | XMS | Encounter Summary ---
Demographics + + + | Address | [address] | | | [place] [address] | + + + | Home Phone [...] + + | Author | [facility] | + + + | Organization | [facility] | + + + | Address | Unknown | + + + | Phone | Unavailable | + + + Support +------+ + + + +-------+ | Name | Relationship | Address | Phone | +------+ + + + +-------+ ECON | [address] | | [place] | [address] | +------+ + + + +-------+ Care Team Providers + +------+-------+ | Care Security And Compliance Project Manager Name | Role | Phone | [...] + + | 02/22/ | Documentati | Digestive Health | Lab, Gi Procedure | Medical Records | | 2017 | on | Center at [facility] 4th | | Review | | | | Floor [address] | | | | | | [facility] | | | | | | Mailcode: [address] | | | | | | [address] | | | | | | [address] [place], [place] | | | | | | [address] | | | | | | [phone] | | | +--------+ + + + [...]
--- OUTSIDE RECORDS SUMMARY | ~2017-04-11 | XMS | Encounter Summary ---
Demographics + + + | Address | [address] | | | [place] [address] | + + + | Home Phone [...] [address] | | [place] | [address] | +------+ + + + +-------+ Care Team Providers + +------+-------+ | Care Juvenile Court Judge Name | Role | Phone | + +------+-------+ | Filippo Pinon DO | PCP | tel | + +------+-------+ Encounter Details +--------+ + + + + | Date | Type | Department | Care Team | Description | +--------+ + + + + | 03/15/ | Inside | Digestive Health | Yanni Tilley, | | | 2017 | Referral | Center at [facility] 4th | [address] | | | | Order | Floor [address] | [facility] | | | | | [facility] | [place], [place] | | | | | Mailcode: [address]83 | [address] | | | | | [address] | [phone] | | | | | [address] [place], [place] | | | | | | [address] | | | | | | [phone] | | | +--------+ + + + [...] 04/09/2017 Patient Name: Daysi Flaherty Order #: [id number] | | Date of : 1965 CSN: [id number] Admit Type: Ambulatory Room: GI 3 | | Procedure: Upper EUS Indications: Abnormal | | ultrasound of the abdomen Providers: YANNI TILLEY MD (Doctor), | | LUIS A MAYES RN (Nurse), JYOTI RODRIGUEZ, | | Animal Pathology Teacher (Animal Pathology Teacher) Referring MD: YANNI TILLEY MD Requesting | [...] after the procedure. The Olympus | | [id number] AL5 Linear Echoendoscope #[id number] | | was introduced through the mouth, and advanced to the | | second part of duodenum. The Olympus [id number] | | Endoscope #[id number] was introduced through the | | mouth, [...] A stylet was | | used. A adjunct psychology professor was present and performed a preliminary cytologic [...] 04/09/2017 1:07 PM CC Letter to: FILIPPO PINNO DO | + + in this encounter Visit Diagnoses + + | Diagnosis | + + | Idiopathic chronic pancreatitis (HCC) - Primary | + +"
--- OUTSIDE RECORDS SUMMARY | ~2017-04-11 | XMS | Encounter Summary ---
Demographics + + + | Address | [address] | | | [place] [address] | + + + | Home Phone [...] [address] | | [place] | [address] | +------+ + + + +-------+ Care Team Providers + +------+-------+ | Care Assistant Professor Of Chemistry Name | Role | Phone | + [...] | Abstract | Digestive Health | Paras aBker | Outside Records | | 2017 | | Center at [facility] 6th | MD Ania [address] | Received (02/24/2017 | | | | Floor [address] | [address] | [address] A/P- Carol | | | | Deborah Mailcode: CH6D | [place], [place] | [facility]) | | | | [facility] | [address] | | | | | and [place]oret[place], 6th | [phone] | | | | | floor [place], [place] | | | | | | [address] | | | | | | [phone] | | | +--------+ + + + [...]
--- OUTSIDE RECORDS SUMMARY | ~2017-04-11 | XMS | Encounter Summary ---
Demographics + + + | Address | [address] | | | [place] [address] | + + + | Home Phone [...] [address] | | [place] | [address] | +------+ + + + +-------+ Care Team Providers + +------+-------+ | Care Grain Loader Name | Role | Phone | [...] | 2017 | Referral | Center at [facility] 4th | [address] | | | | Order | Floor [address] | [place], [place] | | | | | [facility] | [address] | | | | | Mailcode: [address] | | | | | | [address] | | | | | | [address] [place], [place] | | | | | | [address] | | | | | | [phone] | | | +--------+ + + + [...]
--- OUTSIDE RECORDS SUMMARY | ~2017-04-11 | XMS | Encounter Summary ---
Demographics + + + | Address | [address] | | | [place] [address] | + + + | Home Phone | | + + + | Preferred Language | Unknown | + + + | Marital Status | | + + + | Presybeterian Affiliation | ASG | + + + | Race | White | + + + | Ethnic Group | Not or | + + + Author + + + | Author | [facility] | + + + | Organization | [facility] | + + + | Address | Unknown | + + + | Phone | Unavailable | + + + Support +------+ + + + +-------+ | Name | Relationship | Address | Phone | +------+ + + + +-------+ ECON | [address] | | [place] | [address] | +------+ + + + +-------+ Care Team Providers + +------+-------+ | Care Interactive Media Director Name | Role | Phone | [...] Test Results | | 2017 | | [place] at [facility] 6th | [address] | | | | | Floor [address] | [address] | | | | | Deborah Mailcode: CH6D | [facility], [place] | | | | | [facility] | [address] | | | | | [facility] [address]oretta, 6th | [phone] | | | | | floor [place], [place] | | | | | | [address] | | | | | | [phone] | | | +--------+ + + + [...]
--- OUTSIDE RECORDS SUMMARY | ~2017-04-11 | XMS | Encounter Summary ---
Demographics + + + | Address | [address] | | | [place] [address] | + + + | Home Phone [address] | | [place] | [address] | +------+ + + + +-------+ Care Team Providers + +------+-------+ | Care Manager Community Name | Role | Phone | + [...] Mailcode: | | | | | | [address] [place] [address] | | | | | | [facility] | | | | | | [place], [place] | | | | | | [address] | | | | | | [phone] | | | +--------+ + + + [...]
--- OUTSIDE RECORDS SUMMARY | ~2017-04-11 | XMS | Encounter Summary ---
Demographics + + + | Address | [address] | | | [place] [address] | + + + | Home Phone [...] [address] | | [place] | [address] | +------+ + + + +-------+ Care Team Providers + +------+-------+ | Care Senior Staff Consultant Name | Role | Phone | [...] + + | 04/09/ | Hospital | [place] [address] | Yanni Tilley, | | | 2018 - | Encounter | [address] | Laurence Leonardo | | | | | [facility] | Alejo, MD Roger, | | | 04/10/ | | HOSPITAL [place], | MD Amado [address] | | | 2017 | | [place] [address] | [address] | | | | | [phone] | [place], [place] | | | | | | [address] | | | | | | [phone] | | | | | | | [...] may be different fr om the original. [facility] Discharge Summary Discharging Provider: Amado Roger MD Discharging Attending Physician: Amado Roger MD PCP: Filippo Pinon DO Admission Date: 04/09/2017 Discharge Date: 04/10/17 Hospital Stay: 1 day(s) Reason for Admission: 51 yo man with hx of obesity, seizures, VIKTORIA on BiPAP who has had 6 months of abdominal pain , weight loss (30 lbs), dysphagia/sore throat who was referred to [facility] GI for ERCP and under went EUS [...] upon disco ntinue. Meloxicam Diarrhea Bowel incontinence Rmegxcd-Mop-Xbx Reductase Inhibitors Seizures Increased frequency of seizures, [...] focal neuro deficits Amado Roger MD, MSc Ship Bossveneer taping machine offbearer Clinical Hospitalist and Medicine Teaching Services [facility] Pager: [phone] in this encounter Discharge Instructions Catherine Salamanca [...] hours or on weekends and holiday Hospital Pet Care Worker toll free [phone]. [phone] and have the GI doctor gas operation manager paged. The provider who performed your [...] | + +--------+ + + | NON STATION USHER CYTOLOGY | Routin | | 04/09/2017 12:00 [...] | + +--------+ + + | NON STATION USHER CYTOLOGY | Routin | | One Time [...] 04/09/2017 Patient Name: Daysi Flaherty Order #: [id number] | | Date of : 1965 CSN: [id number] Admit Type: Ambulatory Room: GI 3 | | Procedure: Upper EUS Indications: Abnormal | | ultrasound of the abdomen Providers: YANNI TILLEY MD (Doctor), | | LUIS A MAYES RN (Nurse), JYOTI RODRIGUEZ, | | Paper Coating Supervisor (Paper Coating Supervisor) Referring MD: YANNI TILLEY MD Requesting | [...] after the procedure. The Olympus | | [id number] [id number] Linear Echoendoscope #[id number] | | was introduced through the mouth, and advanced to the | | second part of duodenum. The Olympus [id number] | | Endoscope #[id number] was introduced through the | | mouth, [...] A stylet was | | used. A parts counter salesperson was present and performed a preliminary cytologic [...]
--- OUTSIDE RECORDS SUMMARY | ~2017-04-11 | XMS | Encounter Summary ---
Demographics + + + | Address | [address] | | | [place] [address] | + + + | Home Phone [...] [address] | | [place] | [address] | +------+ + + + +-------+ Care Team Providers + +------+-------+ | Care Steel Fitter Name | Role | Phone [...] | | | | | | [facility] | | | | | | Health and Healing, | | | | | | 6th floor [place], | | | | | | [place] [address] | | | | | | [phone] | | | +--------+ + + + [...]
--- OUTSIDE RECORDS SUMMARY | ~2017-04-11 | XMS | Clinical Summary ---
Demographics + + + | Address | [address] | | | [place] [address] | + + + | Home Phone [...] [address] | | [place] | [address] | +------+ + + + +-------+ Care Team Providers + +------+-------+ | Care Interdisciplinary Professor Name | Role | Phone | + +------+-------+ | Filippo Pinon DO | PP | tel | + +------+-------+ Source Comments ANALI is fully live on both EpicCare Ambulatory and EpicCare InPatient.[facility] Allergies + + + + [...] + + + + + + | Kcfewmg-Hpg-Zlo | Seizures | | 12/17/19 | Increased [...] | | | original.Or | | | [facility] | | | & Science | | [...] | | known as: | | | [id number] | | | mg every | | [...] | | | r/g/mPulmon | | | luiz: CTAB, | | | no | | [...] | | | ServicesOre | | | [facility] | | | & Science | | | University | | | ager: [phone] | +---+ + +--------+ +---+ + + [...] +--------+ +---+ + + | 02/24/ | Occupational Health And Safety Manager | | Paras Baker | Pancreatic mass [...] 04/09/2017 Patient Name: Daysi Flaherty Order #: [id number] | | Date of : 1965 CSN: [id number] Admit Type: Ambulatory Room: GI 3 | | Procedure: Upper EUS Indications: Abnormal | | ultrasound of the abdomen Providers: TAIWO TILLEY MD (Doctor), | | LUIS A MAYES RN (Nurse), JYOTI RODRIGUEZ, | | Traffic Observer (Traffic Observer) Referring MD: TAIWO TILLEY MD Requesting | [...] after the procedure. The Olympus | | [id number] Linear Echoendoscope #[id number] | | was introduced through the mouth, and advanced to the | | second part of duodenum. The Olympus [id number] | | Endoscope #[id number] was introduced through the | | mouth, [...] A stylet was | | used. A logging crew foreman was present and performed a preliminary cytologic [...] Note | + + | Service Account, kissnofrog Res In Interface - 02/25/2017 5:25 PM [...]
--- OUTSIDE RECORDS SUMMARY | ~2017-04-11 | XMS | Encounter Summary ---
Demographics + + + | Address | [address] | | | [place] [address] | + + + | Home Phone [...] [address] | | [place] | [address] | +------+ + + + +-------+ Care Team Providers + +------+-------+ | Care Ticket Counter Name | Role | Phone | [...] | 2017 | on | Center at [facility] 4th | | Review | | | | Floor [address] | | | | | | [facility] | | | | | | Mailcode: UHN83 | | | | | | Pr[place] | | | | | | [address] [place], [place] | | | | | | [address] | | | | | | [phone] | | | +--------+ + + + [...]
--- OUTSIDE RECORDS SUMMARY | ~2017-04-11 | XMS | Encounter Summary ---
Demographics + + + | Address | [address] | | | [place] [address] | + + + | Home Phone [...] [address] | | [place] | [address] | +------+ + + + +-------+ Care Team Providers + +------+-------+ | Care Risk Mgr Name | Role | Phone | + +------+-------+ | Filippo Chen DO | PCP | tel | + +------+-------+ Encounter Details +--------+ + + + + | Date | Type | Department | Care Team | Description | +--------+ + + + + | 02/26/ | Procedure | Radiology/Imaging | | | | 2017 | Pass | Lab at [facility] [address] | | | | | | SArianne Cabrera | | | | | | Mailcode: CH3G | | | | | | [facility] | | | | | | and Healing, 3rd | | | | | | [place], [place] | | | | | | [address] | | | | | | [phone] | | | +--------+ + + + [...]
[~2017-04-11 17:43] MED LIST changes: +DEMADEX20 MG PO; +DEPAKOTE ER500 MG PO; +MOTRIN IB200 MG PO; +PANTOPRAZOLE SO40 MG PO; +TRAMADOL HCL50 MG PO; +VITAMIN D250000 UNIT PO
[2017-04-11] MEDS ORDERED: GOLYTELY SOLU4000 ML PO (19:52)
--- OUTSIDE RECORDS SUMMARY | 2017-04-11 20:13 | XMS | Clinical Summary ---
Demographics + + + | Address | [address] | | | [place] [address] | + + + | Home Phone | | + + + | Preferred Language | Unknown | + + + | Marital Status | | + + + | Cheondoism Affiliation | ASG | + + + | Race | White | + + + | Ethnic Group | Not or | + + + Author + + + | Author | [facility] | + + + | Organization | [facility] | + + + | Address | Unknown | + + + | Phone | Unavailable | + + + Support +------+ + + + +-------+ | Name | Relationship | Address | Phone | +------+ + + + +-------+ ECON | [address] | | [place] | [phone] | +------+ + + + +-------+ Care Team Providers + +------+-------+ | Care Career Specialist Name | Role | Phone | + +------+-------+ | Filippo Pinon DO | PP | tel | + +------+-------+ Source Comments ANALI is fully live on both EpicCare Ambulatory and EpicCare InPatient.[facility] Allergies + + + + + + | Active Allergy | Reactions | Severity | Noted | Comments | | | | | Date | | + + + + + + | Meloxicam | Diarrhea | | 12/17/19 | Bowel incontinence | | | | | 16 | | + + + + + + | Piroxicam | Rash | Medium | 09/05/19 | Pt mentions he | | | | | 16 | developed a rash | | | | | | while on this | | | | | | medication. Resolved | | | | | | immediately upon | | | | | | discontinue. | + + + + + + | Jxgojgi-Qar-Prv | Seizures | | 12/17/19 | Increased | | Reductase Inhibitors | | | 16 | frequency of | | | | | | seizures, though pts | | | | | | mentions, pt | | | | | | had an infection | | | | | | during the time the | | | | | | pt was started on a | | | | | | statin and this may | | | | | | have been the cause | | | | | | also. Provider never | | | | | | tried a statin | | | | | | again. | + + + + + + Current Medications + + + +---------+------+------+-------+ | Prescription | Sig. | Disp. | Refills | Star | End | Statu | | | | | | t | Date | s | | | | | | Date | | | + + + +---------+------+------+-------+ | divalproex DR 500 | Take 2 tablets by | | | 02/0 | | Activ | | mg oral | mouth two times | | | 8/20 | | e | | tablet,delayed | daily. | | | 16 | | | | release (DR/EC) | | | | | | | + + + +---------+------+------+-------+ | ERGOCALCIFEROL, | Take 50,000 Units by | | | | | Activ | | VITAMIN D2, (VITAMIN | mouth every seven | | | | | e | | D ORAL) | days. Takes every | | | | | | | | Wednesday | | | | | | + + + +---------+------+------+-------+ | methotrexate 2.5 | Take 10 mg by mouth | | | | | Activ | | mg oral | every seven days. | | | | | e | | tabletIndications: | Takes every | | | | | | | Psoriatic Arthritis | Indications: | | | | | | | | PSORIATIC ARTHRITIS | | | | | | + + + +---------+------+------+-------+ | folic acid 1 mg | Take 1 mg by mouth | | | | | Activ | | oral tablet | once daily. | | | | | e | + + + +---------+------+------+-------+ | mometasone 0.1 % | Apply 1 applicator | | | | | Activ | | topical cream | to affected area | | | | | e | | | once daily. Apply a | | | | | | | | thin film to ears | | | | | | | | daily (indication: | | | | | | | | psoriasis) | | | | | | + + + +---------+------+------+-------+ | acetaminophen 325 | Take 325 mg by mouth | | | | | Activ | | mg oral tablet | every four hours as | | | | | e | | | needed (pain). | | | | | | + + + +---------+------+------+-------+ | lamoTRIgine 25 mg | 25 mg every other | 120 | 5 | 09/2 | | Activ | | oral | day for two weeks | tablet | | 09/15 | | e | | tabletIndications: | Indications: | | | 16 | | | | Complex-Partial | COMPLEX-PARTIAL | | | | | | | Epilepsy | EPILEPSY | | | | | | + + + +---------+------+------+-------+ | aspirin 325 mg | Take 325 mg by mouth | | | | | Activ | | oral tablet | once daily. | | | | | e | + + + +---------+------+------+-------+ | polyethylene | Mix 17 g in liquid | 1700 g | 1 | 12/1 | | Activ | | glycol (MIRALAX) 17 | and drink two times | | | 4/20 | | e | | gram/dose oral | daily. Indications: | | | 17 | | | | powderIndications: | constipation | | | | | | | constipation | | | | | | | + + + +---------+------+------+-------+ | | Take 1 tablet by | 15 | 0 | 01/1 | | Activ | | HYDROcodone-acetamin | mouth every six | tablet | | 3/20 | | e | | ophen (NORCO) 5-325 | hours as needed for | | | 18 | | | | mg oral | moderate pain or | | | | | | | tabletIndications: | severe pain. | | | | | | | Pain | Indications: Pain | | | | | | + + + +---------+------+------+-------+ Active Problems + + | Patient Care Coordination Note | + + | Seen by Dr. Arambula, will need another provider to follow him for evaluation. | | | | Date Done: Epi Surgery Pathway | | 12/09/2015 Identify Candidate (added to case tracking) | | [id number] Mandatory Evaluation | | History and Exam (?labs) | | Epilepsy Protocol MRI | | 12/17/2015 EMU Admission Completion | | Neuropsychological Testing | | | | Preliminary Conference decision to pursue Resection | | fMRI/DTI | | PET | | SPECT | | JOSÉ MIGUEL | | *Temporal Lobe | | Gracy | | Semi invasive Foramen Ovale | | | | Presurgical Conference | | Invasive Monitoring? +/- Resection | | Non-invasive Resection | | Confirm pt. Approval of plan | | Neuro Surgery Scheduling Notified | | Surgery Date | | Epi provider post surgery F/U appt. 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 | 09/06/2015 | | with complex partial seizures, intractable, without status | | | epilepticus (HCC) | | + + + | Cerebral cavernoma | 09/06/2015 | + + + | Psoriasis with arthropathy (HCC) | 07/25/2015 | + + + | Psoriasis | 01/31/2015 | + + + | Aortic valve insufficiency | 01/10/2015 | + + + | Valvular endocarditis | 01/10/2015 | + + + | Rheumatic fever | 11/19/2014 | + + + Encounters +--------+ + + + + | Date | Type | Specialty | Care Team | Description | +--------+ + + + + | 04/09/ | Hospital | | Taiwo Tilley, | | | 2018 - | Encounter | | Laurence Leonardo | | | | | | MD Acacia Dhillon, | | | 04/10/ | | | MD Amado | | | 2017 | | | | | +--------+ + + + + +---+ + | | Discharge | | | Summaries | | | - | | | Dowlatshahi | | | , MD Amado | | | - | | | 04/10/2017 | | | 7:24 AM | | | PST | | | Formatting | | | of this | | | note may be | | | different | | | from the | | | original.[place] | | | [facility] | | & [facility] | | | [facility] | | | Discharge | | | SummaryDisc | | | harging | | | Provider: | | | Amado | | | Dowlatshahi | | | , | | | MDDischargi | | | ng | | | Attending | | | Physician: | | | Amado | | | Dowlatshahi | | | , MDPCP: | | | Filippo | | | Gustavo, | | | DOAdmission | | | Date: | | | 04/09/2017Di | | | scharge | | | Date: | | | 04/10/17Hos | | | pital Stay: | | | 1 | | | day(s)Reaso | | | n for | | | Admission:5 | | | 1 yo man | | | with hx of | | | obesity, | | | seizures, | | | VIKTORIA on | | | BiPAP who | | | has had 6 | | | months of | | | abdominal | | | pain, | | | weight loss | | | (30 lbs), | | | dysphagia/s | | | ore throat | | | who was | | | referred to | | | [facility] | | | for ERCP | | | and | | | underwent | | | EUS with | | | pancreatic | | | biopsiesPri | | | ncipal | | | Final | | | Diagnosis:P | | | ost | | | pancreatic | | | biopsy | | | pain/nausea | | | Additional | | | Diagnoses:C | | | hronic | | | pancreatiti | | | s vs | | | autoimmune | | | pancreatiti | | | sAbdominal | | | pain, | | | weight | | | lossSeizure | | | sOSAPsoriat | | | ic | | | ArthritisMi | | | grainesProc | | | edures: | | | ERCP with | | | EUS on | | | 1/12Hospita | | | l Course by | | | Problem | | | (with | | | follow-up | | | plan/instru | | | ctions):#Po | | | st | | | pancreatic | | | biopsy | | | pain/nausea | | | #Chronic | | | pancreatiti | | | s vs | | | autoimmune | | | pancreatiti | | | s#Abdominal | | | pain, | | | weight | | | lossUnderwe | | | nt ERCP-EUS | | | with | | | pancreatic | | | bx. | | | Post-proced | | | ure was | | | having a | | | lot of | | | abdominal | | | pain and so | | | admitted. | | | Pt | | | tolerated | | | CLD on | | | evening of | | | procedure | | | and on day | | | of | | | discharge | | | was | | | tolerating | | | regular | | | diet. Pt | | | was | | | instructed | | | to resume | | | home | | | medications | | | for pain | | | and nausea. | | | GI will | | | call to | | | set-up | | | outpatient | | | appt to f/u | | | on biopsy | | | results. # | | | Seizure | | | DisorderSta | | | ble. | | | Continue | | | home | | | depakote. | | | #VIKTORIA on | | | BiPAPStable | | | . Continue | | | home | | | bipap. Pso | | | riatic | | | arthritisSt | | | able. | | | Continue | | | home | | | mometasone | | | topical | | | ointment. | | | Resume home | | | | | | methotrexat | | | e until | | | next | | | week.Pertin | | | ent | | | Findings:No | | | labs this | | | encounterPe | | | nding bx | | | resultsCons | | | ultants | | | (service/at | | | tending | | | name):[facility] | | | oenterology | | | /Dr. | | | SharzehiDis | | | charge | | | Medications | | | : | | | Medication | | | List | | | CONTINUE | | | taking | | | these | | | medications | | | | | | acetaminoph | | | en 325 mg | | | TabCommonly | | | known as: | | | TYLENOL | | | aspirin 325 | | | mg Tab | | | divalproex | | | DR 500 mg | | | TbecCommonl | | | y known as: | | | DEPAKOTE | | | folic acid | | | 1 mg | | | TabCommonly | | | known as: | | | FOLVITE | | | lamoTRIgine | | | 25 mg | | | TabCommonly | | | known as: | | | [id number] | | | mg every | | | other day | | | for two | | | weeks | | | Indications | | | : | | | COMPLEX-PAR | | | TIAL | | | EPILEPSY | | | methotrexat | | | e 2.5 mg | | | Tab | | | mometasone | | | 0.1 % | | | CreaCommonl | | | y known as: | | | ELOCON | | | polyethylen | | | e glycol 17 | | | gram/dose | | | PowdCommonl | | | y known as: | | | | | | MIRALAXMix | | | 17 g in | | | liquid and | | | drink two | | | times | | | daily. | | | Indications | | | : | | | constipatio | | | n VITAMIN D | | | ORAL | | | Rationale | | | for | | | Medication | | | Changes:No | | | changes | | | were | | | madeAllergi | | | es:Allergie | | | s Allergen | | | Reactions | | | | | | Piroxicam | | | Rash Pt | | | mentions he | | | developed | | | a rash | | | while on | | | this | | | medication. | | | Resolved | | | immediately | | | upon | | | discontinue | | | . | | | Meloxicam | | | Diarrhea | | | Bowel | | | incontinenc | | | e | | | | | | Statins-Hmg | | | -Coa | | | Reductase | | | Inhibitors | | | Seizures | | | Increased | | | frequency | | | of | | | seizures, | | | though pts | | | | | | mentions, | | | pt had an | | | infection | | | during the | | | time the pt | | | was | | | started on | | | a statin | | | and this | | | may have | | | been the | | | cause also. | | | Provider | | | never tried | | | a statin | | | again. | | | Code | | | Status: | | | FullPOLST | | | completed: | | | noAdditiona | | | l | | | Instruction | | | s:Condition | | | on | | | Discharge | | | Fair | | | ERCP/EUS | | | Discharge | | | Diet Clear | | | liquids on | | | day of | | | procedure. | | | Low fat | | | diet (no | | | dairy | | | products) | | | on day | | | after | | | procedure.T | | | he next | | | day, return | | | to your | | | previous | | | diet.Diet | | | Regular | | | Regular | | | diet- There | | | are no | | | restriction | | | s to your | | | diet. You | | | may eat or | | | drink | | | whatever | | | you prefer, | | | though | | | healthy | | | food | | | choices are | | | | | | recommended | | | . Activity | | | No activity | | | | | | restriction | | | s Other | | | Discharge | | | Orders and | | | Instruction | | | s Seek | | | medical | | | attention | | | if having | | | worsening | | | abdominal | | | pain, | | | uncontrolle | | | d | | | nausea/vomi | | | ting, chest | | | pain, | | | shortness | | | of breath, | | | worst | | | headache of | | | your life, | | | any other | | | concerns | | | Follow | | | Up:Discharg | | | e Physical | | | Exam:Last | | | 24 hour | | | min/maxTemp | | | : 36.6 C | | | (97.9 F) | | | Temp Min: | | | 36.2 C | | | (97.2 F) | | | Max: 36.8 | | | C (98.2 | | | F) Pulse: | | | 61 Pulse | | | Min: 54 | | | Max: 68 | | | Resp: 16 | | | Resp Min: | | | 11 Max: 20 | | | BP: 99/48 | | | BP Min: | | | 99/48 Max: | | | 129/62 | | | SpO2: 92 % | | | SpO2 Min: | | | 92 % Max: | | | 100 % Body | | | mass index | | | is 33.72 | | | kg/m . | | | General | | | Appearance: | | | NAD, | | | speaking in | | | full | | | sentencesHE | | | ENT: EOMI, | | | anicteric | | | sclera, | | | clear | | | oropharynxN | | | vanessa: JVD | | | noted at | | | clavicle at | | | 90 | | | degreesCard | | | iac: RRR, | | | no | | | r/g/mPulmon | | | uliz: CTAB, | | | no | | | w/r/cAbdome | | | n: +BS, | | | soft, mild | | | diffuse TTP | | | (worst in | | | umbilical | | | region)Extr | | | emities: | | | negative | | | edemaNeuro: | | | A, Ox3, | | | moves all | | | extremities | | | , no focal | | | neuro | | | deficitsSha | | | di | | | Dowlatshahi | | | , MD, | | | MScAssistan | | | t Professor | | | of | | | MedicineCli | | | nical | | | Hospitalist | | | and | | | Medicine | | | Teaching | | | ServicesOre | | | [facility] | | | & Science | | | University | | | ager: [id number] | +---+ + +--------+ +---+ + + | 04/06/ | Telephone-S | | | Pre-operative | | 2018 | cheduled | | | evaluation | +--------+ +---+ + + | 04/06/ | Anesthesia | | Lily Mooney RN | | | 2018 | Event | | | | +--------+ +---+ + + | 03/16/ | Abstract | | Taiwo Tilley, | Blood Test Results | | 2016 | | | MD | | +--------+ +---+ + + | 03/15/ | Inside | | Taiwo Tilley, | | | 2016 | Referral | | MD | | | | Order | | | | +--------+ +---+ + + | 03/11/ | Office | | Taiwo Tilley, | Idiopathic chronic | | 2016 | Visit | | MD | pancreatitis (HCC) | | | | | | (Primary Dx) | +--------+ +---+ + + | 03/11/ | Hospital | | Paras Baker | | | 2016 | Encounter | | MD Ania | | +--------+ +---+ + + | 03/01/ | Abstract | | Paras Baker | Outside Records | | 2016 | | | MD Ania | Received (02/24/2017 | | | | | | [facility] | | | | | | Medical) | +--------+ +---+ + + | 02/26/ | Procedure | | | | | 2016 | Pass | | | | +--------+ +---+ + + | 02/24/ | Manager Cath Lab | | Paras Baker | Pancreatic mass | | 2016 | | | KMD | (Primary Dx); | | | | | | Epigastric pain; | | | | | | Elevated lipase | +--------+ +---+ + + | 02/24/ | Outside | | Filippo Pinon DO | | | 2017 | Referral | | | | | | Order | | | | +--------+ +---+ + + | 02/22/ | Documentati | | Lab, Gi Procedure | Medical Records | | 2016 | on | | | Review | +--------+ +---+ + + | 02/17/ | Abstract | | Clinic, Surgery | Referral To Surgery | | 2016 | | | | - General | +--------+ +---+ + + | 01/18/ | Document-Sc | | Unknown | | | 2016 | anned | | | | +--------+ +---+ + + | 01/18/ | Hospital | | Paras Baker | | | 2016 | Encounter | | MD Ania | | +--------+ +---+ + + from Last 3 Months Family History + + +------+ + | Medical History | Relation | Name | Comments | + + +------+ + | Asthma | | | | + + +------+ + | Cancer | | | | + + +------+ + | Diabetes | | | | + + +------+ + | Genetic | | | | + + +------+ + | Heart Attack | | | | + + +------+ + | Psychiatry | | | | + + +------+ + + +------+---------+ + | Relation | Name | Status | Comments | + +------+---------+ + | Father | | Unknown | | + +------+---------+ + | Mother | | Unknown | | + +------+---------+ + Social History + +-------+ +--------+------+ | Tobacco Use | Types | Packs/Day | Years | Date | | | | | Used | | + +-------+ +--------+------+ | Never Smoker | | | | | + +-------+ +--------+------+ + +------+---+---+ | Smokeless Tobacco: | Chew | | | | Former User | | | | + +------+---+---+ + + +---------+ + | Alcohol Use | Drinks/We | oz/Week | Comments | | | ek | | | + + +---------+ + | No | 0 | 0.0 | | | | Standard | | | | | drinks or | | | | | | | | | | equivalen | | | | | t | | | + + +---------+ + + + + | Sex Assigned at | Date Recorded | | | | + + + | Not on file | | + + + Last Filed Vital Signs + + + + | Vital Sign | Reading | Time Taken | + + + + | Blood Pressure | 103/53 | 04/10/2017 7:42 AM PST | + + + + | Pulse | 59 | 04/10/2017 7:42 AM PST | + + + + | Temperature | 36.5 C (97.7 F) | 04/10/2017 7:42 AM PST | + + + + | Respiratory Rate | 16 | 04/10/2017 7:42 AM PST | + + + + | Oxygen Saturation | 95% | 04/10/2017 7:42 AM PST | + + + + | Inhaled Oxygen | - | - | | Concentration | | | + + + + | Weight | 106.6 kg (235 lb) | 04/09/2017 11:25 AM PST | + + + + | Height | 177.8 cm (5' 10") | 04/09/2017 11:25 AM PST | + + + + | Body Mass Index | 33.72 | 04/09/2017 11:25 AM PST | + + + + Plan of Treatment + + + + + | Health Maintenance | Due Date | Last Done | Comments | + + + + + | INFLUENZA VACCINE | | | | | (FLU SHOT) | 7 | | | + + + + + Procedures + +--------+ + + + | Procedure Name | Priori | Date/Time | Associated Diagnosis | Comments | | | ty | | | | + +--------+ + + + | EUS UPPER | Routin | 04/09/2017 | Idiopathic chronic | Results for this | | | e | 1:07 PM | pancreatitis (HCC) | procedure are in the | | | | PST | | results section. | + +--------+ + + + from Last 3 Months Results EUS UPPER (04/09/2017 1:07 PM) + + + | Specimen | Performing Laboratory | + + + | | [facility] | + + + + + | Narrative | + + | Procedure Date: 04/09/2017 Patient Name: Daysi Flaherty Order #: [id number] | | Date of : 1965 CSN: [id number] Admit Type: Ambulatory Room: GI 3 | | Procedure: Upper EUS Indications: Abnormal | | ultrasound of the abdomen Providers: TAIWO TILLEY MD (Doctor), | | LUIS A MAYES RN (Nurse), JYOTI RODRIGUEZ, | | Network Administrator (Network Administrator) Referring MD: TAIWO TILLEY MD Requesting | | Provider: Medicines: Monitored Anesthesia Care | | Complications: No immediate complications. Procedure: | | Pre-Anesthesia Assessment: - Pre-procedure | | physical examination revealed no | | contraindications to sedation. - Airway | | Examination: Mallampati Class III (part of the | | uvula and soft palate visualized). | | - ASA Grade Assessment: II - A patient with | | mild systemic disease. | | - After reviewing the risks and benefits, the | | patient was deemed in satisfactory condition | | to undergo the procedure. | | - The anesthesia plan was to use monitored | | anesthesia care (MAC). | | - Immediately prior to administration of | | medications, the patient was re-assessed for | | adequacy to receive sedatives. | | Prior to the procedure, a History and Physical | | with airway assessment was performed (see | | patient record), and patient medications and | | allergies were reviewed. The risks and | | benefits of the procedure and the sedation | | options and risks were discussed. All questions were | | answered and informed consent was obtained. | | After reviewing the risks and benefits, the | | patient was deemed in satisfactory condition | | to undergo the procedure. Immediately prior | | to administration of medications, the patient | | was re-assessed for adequacy to receive | | sedatives. The heart rate, respiratory rate, oxygen | | saturations, blood pressure, adequacy of | | pulmonary ventilation, and response to care | | were monitored throughout the procedure. The | | physical status of the patient was | | re-assessed after the procedure. The Olympus | | [id number] Linear Echoendoscope #[id number] | | was introduced through the mouth, and advanced to the | | second part of duodenum. The Olympus [id number] | | Endoscope #[id number] was introduced through the | | mouth, and advanced to the second part of | | duodenum. The upper EUS was accomplished | | without difficulty. The patient tolerated the | | procedure well. Estimated Blood Loss: Estimated blood loss was minimal. | | Findings: Endoscopic Finding : The examined esophagus was | | endoscopically normal. Patchy mild inflammation characterized by erythema was | | found in the gastric body and in the gastric antrum. Biopsies were taken with | | a cold forceps for histology. The examined duodenum was | | endoscopically normal. Endosonographic Finding : There was no sign | | of significant endosonographic abnormality in the common bile duct. The | | maximum diameter of the duct was 3 mm in the head of the pancreas. No stones, | | no biliary sludge and ducts of normal caliber were identified. | | Pancreatic parenchymal abnormalities were noted in the pancreatic head, in | | the genu of the pancreas, in the pancreatic body and in the pancreatic tail. | | These consisted of atrophy, hyperechoic strands and lobularity. An | | area of more pronounced parenchymal changes vs round mass was identified in | | the pancreatic head. The area/mass was hypoechoic. The area/mass measured 23 | | mm by 24 mm in maximal cross-sectional diameter. The outer margins were | | irregular. Fine needle aspiration for cytology was performed. Color Doppler | | imaging was utilized prior to needle puncture to confirm a lack of | | significant vascular structures within the needle path. Seven passes were | | made with the 25 gauge needle using a transduodenal approach. A stylet was | | used. A child support investigator was present and performed a preliminary cytologic | | examination. Preliminary cytology is suggestive of benign inflammatory | | changes (final results are pending). Two enlarged lymph nodes were visualized | | in the peripancreatic region. The largest measured 9 mm by 6 mm in maximal | | cross-sectional diameter. The nodes were triangular, hypoechoic and had well | | defined margins. There was no sign of significant endosonographic abnormality | | in the ampulla. Impression: - Gastritis. Biopsied. | | - Pancreatic parenchymal abnormalities | | consisting of atrophy, hyperechoic strands | | and lobularity were noted in the entire | | pancreas. These changes were concenring for | | chronic pancreatitis. - An area of more | | pronounced parenchymal changes vs mass was | | identified in the pancreatic head. Fine needle | | aspiration performed. | | - Two enlarged lymph nodes were visualized in | | the peripancreatic region. Tissue has not | | been obtained. However, the endosonographic | | appearance is consistent with benign | | inflammatory changes. Recommendation: - Discharge patient to home | | (ambulatory). - Await cytology results and | | await path results. - The findings and | | recommendations were discussed with the | | patient and their spouse. Attending Participation: I personally performed the | | entire procedure. MD TAIWO Blackburn MD 04/09/2017 3:29:43 PM This | | report has been signed electronically. Number of Addenda: 0 Note Initiated On: | | 04/09/2017 1:07 PM CC Letter to: FILIPPO PINON DO | + + CARDIOLOGY (04/09/2017)CT ABDOMEN WWO IV CONTRAST (03/11/2017 11:16 AM) + + + | Specimen | Performing Laboratory | + + + | | [facility] | + + + + + | Narrative | + + | EXAM: Liver protocol CT of the abdomen with and without contrast. HISTORY: | | Pancreatitis COMPARISON: 01/18/17 TECHNIQUE: Unenhanced, arterial, portal venous | | and 4-minute delayed abdominal CT with 125mL Omnipaque 350 non-ionic intravenous | | contrast. Coronal and sagittal reformats were reviewed. FINDINGS: LOWER THORAX: | | Unremarkable. LIVER: Diffuse fatty infiltration of the liver parenchyma there is no | | focal mass lesion. BILIARY: Unremarkable. SPLEEN: Unremarkable. PANCREAS: Again | | identified is mild peripancreatic inflammatory stranding without evidence of ductal | | dilatation. There is mild heterogeneous arterial enhancement as well, likely reactive. | | This is most notable within the head of the pancreas, where some regions of hypodensity | | are identified (101/5) without evidence of measurable mass, or ductal dilatation or | | atrophy to suggest mass lesion within this region. No discrete arterially enhancing | | lesions identified as well to suggest neuroendocrine tumor. ADRENALS: Unremarkable. | | KIDNEYS/URETERS: Simple cyst within the kidneys, bilaterally. No evidence of | | hydronephrosis. GI TRACT: Visualized portions are unremarkable. PERITONEUM: Trace | | fluid surrounding the tail of the pancreas (90/5), stable to minimally improved from the | | previous examination. No drainable fluid collection. LYMPH NODES: No lymphadenopathy. | | VESSELS: Unremarkable. BONES AND SOFT TISSUES: Unremarkable. IMPRESSION: | | Since 01/18/17, stable to minimal improvement in mild peripancreatic inflammatory | | changes suggestive of possible autoimmune pancreatitis versus resolving pancreatitis | | without evidence of focal mass lesion. Fatty liver. I have personally reviewed | | the images and, if necessary, edited the report. I agree with the report as now | | presented. | + + + + | Procedure Note | + + | Service Account, Radiant Res In Interface - 03/11/2017 12:43 PM PST EXAM: Liver | | protocol CT of the abdomen with and without contrast.HISTORY: PancreatitisCOMPARISON: | | 01/18/17TECHNIQUE: Unenhanced, arterial, portal venous and 4-minute delayed abdominal CT | | with 125mL Omnipaque 350 non-ionic intravenous contrast. Coronal and sagittal reformats | | were reviewed.FINDINGS:LOWER THORAX: Unremarkable.LIVER: Diffuse fatty infiltration of | | the liver parenchyma there is no focal mass lesion.BILIARY: Unremarkable.SPLEEN: | | Unremarkable.PANCREAS: Again identified is mild peripancreatic inflammatory stranding | | without evidence of ductal dilatation. There is mild heterogeneous arterial enhancement | | as well, likely reactive. This is most notable within the head of the pancreas, where | | some regions of hypodensity are identified (101/5) without evidence of measurable mass, | | or ductal dilatation or atrophy to suggest mass lesion within this region. No discrete | | arterially enhancing lesions identified as well to suggest neuroendocrine | | tumor.ADRENALS: Unremarkable.KIDNEYS/URETERS: Simple cyst within the kidneys, | | bilaterally. No evidence of hydronephrosis.GI TRACT: Visualized portions are | | unremarkable.PERITONEUM: Trace fluid surrounding the tail of the pancreas (90/5), stable | | to minimally improved from the previous examination. No drainable fluid | | collection.LYMPH NODES: No lymphadenopathy.VESSELS: Unremarkable.BONES AND SOFT TISSUES: | | Unremarkable.IMPRESSION: Since 01/18/17, stable to minimal improvement in mild | | peripancreatic inflammatory changes suggestive of possible autoimmune pancreatitis | | versus resolving pancreatitis without evidence of focal mass lesion.Fatty liver.I have | | personally reviewed the images and, if necessary, edited the report. I agree with the | | report as now presented. | |PERITONEUM: Trace fluid surrounding the tail of the pancreas (90/5), stable to minimally im proved from the previous examination. No drainable fluid collection. | |LYMPH NODES: No lymphadenopathy. | |VESSELS: Unremarkable. | | | |BONES AND SOFT TISSUES: Unremarkable. | | | |IMPRESSION: | |Since 01/18/17, stable to minimal improvement in mild peripancreatic inflammatory changes s uggestive of possible autoimmune pancreatitis versus resolving pancreatitis without evidence of focal mass lesion. | |Fatty liver. | | | | | |I have personally reviewed the images and, if necessary, edited the report. I agree with t he report as now presented. | + + OUTSIDE BODY - READ REQUEST (01/18/2017) + + + | Specimen | Performing Laboratory | + + + | | [facility] VOICE RECOGNITION | + + + + + | Narrative | + + | EXAM: Professional interpretation only of multiphase CT of the abdomen. DATE OF | | INTERPRETATION REQUEST: 02/24/2017. DATE OF IMAGE ACQUISITION: 01/18/2017. HISTORY: | | Pancreatic mass. COMPARISON: None. TECHNIQUE: Multiphase CT of the abdomen | | before and after intravenous contrast administration. Number of images: [id number] | | FINDINGS: LOWER THORAX: Unremarkable. LIVER: Unremarkable. BILIARY: Unremarkable. | | SPLEEN: Unremarkable. PANCREAS: Mild peripancreatic stranding with minimal pancreatic | | interstitial edema consistent with known mild pancreatitis. No ductal dilatation | | identified. No pancreatic mass seen. ADRENALS: Unremarkable. KIDNEYS/URETERS: | | Unremarkable. GI TRACT: Unremarkable. PERITONEUM: No free air or fluid. LYMPH | | NODES: No lymphadenopathy. VESSELS: Unremarkable. BONES AND SOFT TISSUES: | | Unremarkable. IMPRESSION: No obvious pancreatic mass identified. Trace | | peripancreatic stranding is suggestive of acute edematous mild pancreatitis. No other | | pancreatic abnormality identified. I have personally reviewed the images and, if | | necessary, edited the report. I agree with the report as now presented. | + + + + | Procedure Note | + + | Service Account, Taposé Res In Interface - 02/25/2017 5:25 PM PST EXAM: | | Professional interpretation only of multiphase CT of the abdomen.DATE OF INTERPRETATION | | REQUEST: 02/24/2017.DATE OF IMAGE ACQUISITION: 01/18/2017.HISTORY: Pancreatic | | mass.COMPARISON: None.TECHNIQUE: Multiphase CT of the abdomen before and after | | intravenous contrast administration.Number of images: [id number]:LOWER THORAX: | | Unremarkable.LIVER: Unremarkable.BILIARY: Unremarkable.SPLEEN: Unremarkable.PANCREAS: | | Mild peripancreatic stranding with minimal pancreatic interstitial edema consistent with | | known mild pancreatitis. No ductal dilatation identified. No pancreatic mass | | seen.ADRENALS: Unremarkable.KIDNEYS/URETERS: Unremarkable.GI TRACT: | | Unremarkable.PERITONEUM: No free air or fluid.LYMPH NODES: No lymphadenopathy.VESSELS: | | Unremarkable.BONES AND SOFT TISSUES: Unremarkable.IMPRESSION: No obvious pancreatic mass | | identified. Trace peripancreatic stranding is suggestive of acute edematous mild | | pancreatitis. No other pancreatic abnormality identified.I have personally reviewed the | | images and, if necessary, edited the report. I agree with the report as now presented. | | | |LIVER: Unremarkable. | |BILIARY: Unremarkable. | |SPLEEN: Unremarkable. | |PANCREAS: Mild peripancreatic stranding with minimal pancreatic interstitial edema consiste nt with known mild pancreatitis. No ductal dilatation identified. No pancreatic mass seen. | | | |ADRENALS: Unremarkable. | |KIDNEYS/URETERS: Unremarkable. | | | |GI TRACT: Unremarkable. | |PERITONEUM: No free air or fluid. | |LYMPH NODES: No lymphadenopathy. | |VESSELS: Unremarkable. | | | |BONES AND SOFT TISSUES: Unremarkable. | | | |IMPRESSION: | |No obvious pancreatic mass identified. Trace peripancreatic stranding is suggestive of acut e edematous mild pancreatitis. No other pancreatic abnormality identified. | | | | | |I have personally reviewed the images and, if necessary, edited the report. I agree with t he report as now presented. | + + RADIOLOGY (01/18/2017)from Last 3 Months
== END 2017-04-11 20:05 | disposition home or self-care (01) ==
LOC: ED 17:43
DX: K59.03 Drug induced constipation (principal); T40.2X5A Adverse effect of other opioids, initial encounter; G40.909 Epilepsy, unspecified, not intractable, without status epilepticus; G43.909 Migraine, unspecified, not intractable, without status migrainosus; Z98.890 Other specified postprocedural states; Z79.899 Other long term (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
CPT/HCPCS: 99283

== ENCOUNTER 2017-10-06 14:16 | Emergency (ER) | payer OTHER ==
[~2017-10-06] VITALS: Ht 177.8 cm; Wt 106.6 kg
[~2017-10-06 14:16] MED LIST changes: +GOLYTELY SOLU4000 ML PO
[2017-10-06] MEDS ORDERED: GABAPENTIN600 MG PO (14:30)
[2017-10-06] MEDS ORDERED: BACTRIM DS TAB1 EACH PO (14:49)
[2017-10-06] MEDS ORDERED: PREDNISONE50 MG PO (14:49)
== END 2017-10-06 14:59 | disposition home or self-care (01) ==
LOC: ED 14:16
PROC: 0H9NXZZ Drainage of Left Foot Skin, External Approach (ICD-10-PCS; principal; 2017-10-06)
DX: S90.562A Insect bite (nonvenomous), left ankle, initial encounter (principal); W57.XXXA Bitten or stung by nonvenomous insect and other nonvenomous arthropods, initial encounter; G40.909 Epilepsy, unspecified, not intractable, without status epilepticus; E78.00 Pure hypercholesterolemia, unspecified; G43.909 Migraine, unspecified, not intractable, without status migrainosus; Z79.899 Other long term (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
CPT/HCPCS: 10160; 96372; 99283; J1100

== ENCOUNTER 2017-12-10 21:30 | Emergency (ER) | payer OTHER ==
[~2017-12-10] VITALS: Ht 177.8 cm; Wt 117.9 kg
--- OUTSIDE RECORDS SUMMARY | ~2017-12-10 | XMS | Clinical Summary ---
Demographics + + + | Address | [address] | | | [place] [address] | + + + | Home Phone | | + + + | Preferred Language | Unknown | + + + | Marital Status | | + + + | Restorationism Affiliation | 1061 | + + + | Race | Unknown | + + + | Ethnic Group | Unknown | + + + Author + + + | Author | [facility] | + + + | Organization | [facility] | + + + | Address | Unknown | + + + | Phone | Unavailable | + + + Support + + + + + | Name | Relationship | Address | Phone | + + + + + | Christy Grande | ECON | [address] | | | | | [place] | | | | | [address] | | + + + + + Care Team Providers + +------+ + | Care Watchmaker Apprentice Name | Role | Phone | + +------+ + | Filippo Chen DO | PP | | + +------+ + [...] fever | 11/19/2014 | + + + Family History + + +------+ + | [...] + + + | Vaccine: | | | | | Dtap/Tdap/Td (1 - | 4 | | | | Tdap) | | | | + + + + + | Colon Cancer | | | | | Screening | 5 | | | | (Colonoscopy) | | | | + + + + + | Vaccine: Influenza | | | | | (#1) | 8 | | | + + + + + Results Not on filefrom Last 3 Months Insurance + +--------+ +------+-------+ + | Payer | Benefi | Subscriber | Type | Phone | Address | | | t Plan | ID | | | | | | / | | | | | | | Group | | | | | + +--------+ +------+-------+ + | MEDICAID | SONJA | [id number] | | | [address] | | | N | | | | [place] | | | [place] | | | | [address] | | | DIRECTOR OF GIFT PLANNING | | | | | + +--------+ +------+-------+ + + +--------+ +--------+ + + | Guarantor Name | Accoun | Relation to | Date | Phone | Billing Address | | | t Type | Patient | of | | | | | | | | | | + +--------+ +--------+ + + | JOHNNY GRANDE | Person | Self | [birth year] | Home: | [address] | | | al/Fam | | 1966 | [phone] | [place] | | | [place] | | | [phone] | [address] | + +--------+ +--------+ + +
--- OUTSIDE RECORDS SUMMARY | ~2017-12-10 | XMS | Encounter Summary ---
Demographics + + + | Address | [address] | | | [place] [address] | + + + | Home Phone | | + + + | Preferred Language | Unknown | + + + | Marital Status | | + + + | Moravian Affiliation | ASG | + + + | Race | White | + + + | Ethnic Group | Not or | + + + Author + + + | Author | [facility] | + + + | Organization | [facility] | + + + | Address | Unknown | + + + | Phone | Unavailable | + + + Support + + + + + | Name | Relationship | Address | Phone | + + + + + | TERRA GRANDE | ECON | [address] | | | | | [place] | | | | | [address] | | + + + + + Care Team Providers + +------+ + | Care Roller Name | Role | Phone | + +------+ + | Filippo Chen DO | PCP | | + +------+ + Reason for Visit +--------+ + | Reason | Comments | +--------+ + | Other | Auth for Rectiv | +--------+ + Encounter Details +--------+ + + + + | Date | Type | Department | Care Team | Description | +--------+ + + + + | 10/11/ | Telephone | Digestive Health | Taiwo Tilley, | Other (Auth for | | 2017 | | Center at [facility] 6th | [address] | Rectiv) | | | | Floor [address] | [address] | | | | | [place] Mailcode: CH6D | [place], [place] | | | | | [facility] | [address] | | | | | and [place], [address] | [phone] | | | | | floor [place], [place] | | | | | | [address] | | | | | | [phone] | | | +--------+ + + + [...] + + + as of this encounter Plan of Treatment +--------+---------+ + + + | Date | Type | Specialty | Care Team | Description | +--------+---------+ + + + | 01/05/ | Office | Gastroenterology | | | | 2018 | Visit | | | | +--------+---------+ + + + as of this encounter Visit Diagnoses Not on filein this encounter"
--- OUTSIDE RECORDS SUMMARY | ~2017-12-10 | XMS | Clinical Summary ---
Demographics + + + | Address | [address] | | | [place] [address] | + + + | Home Phone | | + + + | Preferred Language | Unknown | + + + | Marital Status | | + + + | Anabaptism Affiliation | ASG | + + + | Race | White | + + + | Ethnic Group | Not or | + + + Author + + + | Author | [facility] | + + + | [...] [place] | | | | | [address] | | + + + + + Care Team Providers + +------+ + | Care Lacquer Sprayer Name | Role | Phone | + +------+ + | Filippo Chen DO | PP | | + +------+ + Source Comments ANALI is fully live on [facility] EpicCare Ambulatory [facility] Allergies + + + + + + | Active Allergy | Reactions | Severity | Noted | Comments | | | | | Date | | + + + + + + | Lubiprostone | Cough | | 07/30/19 | | | | | | 18 | | + + + + + + | Meloxicam | Diarrhea | | 09/20/20 | Bowel incontinence | | | | [...] + + + + + + | Husmdyr-Jrx-Tyz | Seizures | | 12/17/19 | Increased [...] every other | 120 | 5 | 11/28 | | Activ | | oral | [...] liquid | 1700 g | 1 | / | | Activ | | glycol (MIRALAX) [...] | | + + + +---------+------+------+-------+ | bisacodyl 10 mg | Unwrap and insert 1 | 20 | 1 | 01/2 | | Activ | | rectal | suppository rectally | supposito | | 6/20 | | e | | suppositoryIndicatio | once daily as | ry | | 18 | | | | ns: constipation | [...] + + | 10/11/ | Telephone | | Taiwo Tilley, | Jacobo (Auth for | | 2017 | | | | Loly) | +--------+ + + + + from [...] + + + | Blood Pressure | 110/67 | 07/29/2017 1:11 PM PDT | + + + + | Pulse | 64 | 07/29/2017 1:11 PM PDT | + + + + | Temperature | 36.8 C (98.2 F) | 07/29/2017 1:11 PM PDT | + + + + | Respiratory Rate | 18 | 07/29/2017 1:11 PM PDT | + + + + | Oxygen Saturation | 95% | 04/10/2017 7:42 AM PST | + + + + | Inhaled Oxygen | - | - | | Concentration | | | + + + + | Weight | 111.8 kg (246 lb 6.4 | 07/29/2017 1:11 PM PDT | | | oz) | | + + + + | Height | 177.8 cm (5' 10") | 04/09/2017 11:25 AM PST | + + + + | Body Mass Index | 35.35 | 07/29/2017 1:11 PM PDT | + + + + Plan of Treatment +--------+---------+ + + + | Date | Type | Specialty | Care Team | Description | +--------+---------+ + + + | 01/05/ | Office | | | | | 2017 | Visit | | | | +--------+---------+ + + + + + + + + | Health Maintenance | Due Date | Last Done | Comments | + + + + + | INFLUENZA VACCINE | | | | | (FLU SHOT) | 8 | | | + + + + + Results Not on filefrom Last 3 Months Insurance + +--------+ +--------+-------+---------+ | Payer | Benefi | Subscriber | Type | Phone | Address | | | t Plan | ID | | | | | | / | | | | | | | Group | | | | | + +--------+ +--------+-------+---------+ | SPECIALTY DEVELOPMENT CONSULTANT MEDICAID | SPECIALTY DEVELOPMENT CONSULTANT | xxxxxxxx | Medica | | | | | [place] | | id | | | | | [place] | | | | | + +--------+ +--------+-------+---------+ + +--------+ +--------+ + + | Guarantor Name | Accoun | Relation to | Date | Phone | Billing Address | | | t Type | Patient | of | | | | | | | | | | + +--------+ +--------+ + + | JOHNNY GRANDE | Person | Self | [birth year] | Home: | [address] | | al/Fam | | 1966 | [phone] | [place] [address] | | | [place] | | | [phone] | | + +--------+ +--------+ + +
--- OUTSIDE RECORDS SUMMARY | ~2017-12-10 | XMS | Clinical Summary ---
Demographics + + + | Address | [address] | | | [place] [address] | + + + | Home Phone | | + + + | Preferred Language | Unknown | + + + | Marital Status | | + + + | Sabianism Affiliation | 1013 | + + + | Race | Unknown | + + + | Ethnic Group | Unknown | + + + Author + + + | Author | [facility] | | | and [place] | + + + | Organization | [facility] | | | and [place] | + + + | Address | Unknown | + + + | Phone | Unavailable | + + + Support + + + + + | Name | Relationship | Address | Phone | + + + + + | Christy Grande | ECON | [address] | | | | | [place] | | | | | [address] | | + + + + + Care Team Providers + +------+ + | Care Instructional Supervisor Name | Role | Phone | + +------+ + | Juan Demarco MD | PP | Unavailable | + +------+ + Allergies No Known Allergies Current Medications + + +-------+---------+------+------+-------+ | Prescription | Sig. | Disp. | Refills | Star | End | Statu | | | | | | t | Date | s | | | | | | Date | | | + + +-------+---------+------+------+-------+ | mometasone | | | | 06/0 | | Activ | | (ELOCON) 0.1 % cream | | | | 3/20 | | e | | | | | | 13 | | | + + +-------+---------+------+------+-------+ | pravastatin | | | | 06/0 | | Activ | | (PRAVACHOL) 80 MG | | | | 5/20 | | e | | tablet | | | | 13 | | | + + +-------+---------+------+------+-------+ | valproic acid | | | | 04/0 | | Activ | | (DEPAKENE) 250 MG | | | | 2/20 | | e | | capsule | | | | 13 | | | + + +-------+---------+------+------+-------+ | | Take 1 tablet by | | | | | Activ | | HYDROcodone-acetamin | mouth every 6 hours | | | | | e | | ophen (NORCO) 5-325 | as needed for Pain. | | | | | | | mg per tablet | | | | | | | + + +-------+---------+------+------+-------+ Active Problems No known active problems Social History + +-------+ +--------+------+ | Tobacco Use | Types | Packs/Day | Years | Date | | | | | Used | | + +-------+ +--------+------+ | Never Smoker | | | | | + +-------+ +--------+------+ + +------+---+---+ | Smokeless Tobacco: | Chew | | | | Current User | | | | + +------+---+---+ + + + | Sex Assigned at | Date Recorded | | | | + + + | Not on file | | + + + Last Filed Vital Signs + + + + | Vital Sign | Reading | Time Taken | + + + + | Blood Pressure | 122/74 | 09/12/20141412 PDT | + + + + | Pulse | 76 | 09/12/20141412 PDT | + + + + | Temperature | 36.6 C (97.8 F) | 09/12/20141412 PDT | + + + + | Respiratory Rate | 16 | 09/12/20141412 PDT | + + + + | Oxygen Saturation | 98% | 09/02/2012 1034 PDT | + + + + | Inhaled Oxygen | - | - | | Concentration | | | + + + + | Weight | 102.1 kg (225 lb) | 09/12/20141412 PDT | + + + + | Height | 177.8 cm (5' 10") | 09/12/20141412 PDT | + + + + | Body Mass Index | 32.28 | 09/12/20141412 PDT | + + + + Plan of Treatment + + + + + | Health Maintenance | Due Date | Last Done | Comments | + + + + + | Hepatitis C | | | | | Screening | 5 | | | + + + + + | Vaccine: | | | | | Dtap/Tdap/Td (1 - | 4 | | | | Tdap) | | | | + + + + + | Colorectal Cancer | | | | | Screening | 5 | | | | (Colonoscopy) | | | | + + + + + | Vaccine: Influenza | | | | | (#1) | 8 | | | + + + + + Results Not on filefrom Last 3 Months Insurance + +--------+ +--------+ +---------+ | Payer | Benefi | Subscriber | Type | Phone | Address | | | t Plan | ID | | | | | | / | | | | | | | Group | | | | | + +--------+ +--------+ +---------+ | [employer] | MODA | [id number] | Medica | [phone] | | | MEDICAID HMO | HEALTH | | id | 9821 | | | | MDCD | | | | | | | [place] | | | | | + +--------+ +--------+ +---------+ | BROADSPIRE | BROADS | [id number] | Indemn | [phone] | | | | PIRE | | ity | 2111 | | | | SVCS | | | | | | | WC | | | | | + +--------+ +--------+ +---------+ + +--------+ +--------+ + + | Guarantor Name | Accoun | Relation to | Date | Phone | Billing Address | | | t Type | Patient | of | | | | | | | | | | + +--------+ +--------+ + + | JOHNNY GRANDE ARTHUR | Person | Self | [birth year] | Home: | [address] | | | al/Fam | | 1966 | [phone] | [place] [address] | | | [place] | | | [phone] | | + +--------+ +--------+ + + | [id number] | Worker | Self | [birth year] | Home: | [address] | | | s Comp | | 1966 | [phone] | [place] [address] | | | | | | [address] | | + +--------+ +--------+ + +
--- OUTSIDE RECORDS SUMMARY | ~2017-12-10 | XMS | Clinical Summary ---
Demographics + + + | Address | [address] | | | [place] [address] | + + + | Home Phone | | + + + | Preferred Language | Unknown | + + + | Marital Status | | + + + | Spiritism Affiliation | 1061 | + + + | Race | Unknown | + + + | Ethnic Group | Unknown | + + + Author + + + | Author | [facility] | + + + | Organization | [facility] | + + + | Address | Unknown | + + + | Phone | Unavailable | + + + Support + + + + + | Name | Relationship | Address | Phone | + + + + + | Christy Grande | ECON | [address] | | | | | [place] | | | | | [address] | | + + + + + Care Team Providers + +------+ + | Care Group Director Experience Name | Role | Phone | + [...] +------+-------+ + | MEDICAID | SONJA | [id number] | | | [address] | | | N | | | | [place] | | | [place] | | | | [address] | | | [employer] | | | | | + +--------+ [...] | [place] | | | [phone] | [address] | + +--------+ +--------+ + +
--- OUTSIDE RECORDS SUMMARY | ~2017-12-10 | XMS | Clinical Summary ---
Demographics + + + | Address | [address] | | | [place] [address] | + + + | Home Phone | | + + + | Preferred Language | Unknown | + + + | Marital Status | | + + + | Alevism Affiliation | 1013 | + + + | Race | Unknown | + + + | Ethnic Group | Unknown | + + + Author + + + | Author | [facility] | | | and [place] | + + + | Organization | [facility] | | | and [place] | [...] [place] | | | | | [address] | | + + + + + Care Team Providers + +------+ + | Care Html Web Developer Name | Role | Phone | [...] | [employer] | MODA | [id number] | Medica | [phone] | | | MEDICAID HMO | HEALTH | | id | 9821 | | | | [place]CD | | | | | | | [place] | | | | | + +--------+ +--------+ +---------+ | BROADSPIRE | BROADS | [id number] | Indemn | [phone] | | | [...] | 1966 | [phone] | [place] [address] | | | eladio | | | [address] | | + +--------+ +--------+ + + | [id number] | Worker | Self | [birth year] | Home: | [address] | | | s Comp | | 1966 | [phone] | [place] [address] | | | | | | [address] | | + +--------+ +--------+ + +
--- OUTSIDE RECORDS SUMMARY | ~2017-12-10 | XMS | Encounter Summary ---
Demographics + + + | Address | [address] | | | [place] [address] | + + + | Home Phone [...] [place] | | | | | [address] | | + + + + + Care Team Providers + +------+ + | Care Cafeteria Manager Name | Role | Phone | [...] | | 2017 | | Center at [facility] 6th | [address] | Rectiv) | | | | Floor [address] | [address] | | | | | [place] Mailcode: CH6D | [place], [place] | | | | | [facility] | [address] | | | | | and [address], [address]th | [phone] | | | | | floor [place], [place] | | | | | | [address] | | | | | | [phone] | | | +--------+ + + + [...]
--- OUTSIDE RECORDS SUMMARY | ~2017-12-10 | XMS | Clinical Summary ---
Demographics + + + | Address | [address] | | | [place] [address] | + + + | Home Phone [...] [place] | | | | | [address] | | + + + + + Care Team Providers + +------+ + | Care Harp Action Assembler Name | Role | Phone | + +------+ + | Filippo Chen DO | PP | | + +------+ + Source Comments ANALI is fully live on both EpicCare Ambulatory and [facility] Allergies + + + + + [...] + + + + + + | Pkhuihh-Pqy-Xbp | Seizures | | 12/17/19 | Increased [...] | | | + +--------+ +--------+-------+---------+ | INTERFACE DEVELOPER MEDICAID | INTERFACE DEVELOPER | xxxxxxxx | Medica | | | [...] | 1966 | [phone] | [place] [address] | | | [place] | | | [address] | | + +--------+ +--------+ + +
[~2017-12-10 21:30] MED LIST changes: +BACTRIM DS TAB1 EACH PO; +GABAPENTIN600 MG PO; +PREDNISONE50 MG PO
[2017-12-10] MEDS ORDERED: AMOXICILLIN500 MG PO (22:21)
[2017-12-10] MEDS ORDERED: NORCO 5-325 TA1 EACH PO (22:21)
== END 2017-12-10 22:32 | disposition home or self-care (01) ==
LOC: ED 21:30
DX: J02.9 Acute pharyngitis, unspecified (principal); G40.909 Epilepsy, unspecified, not intractable, without status epilepticus; Z88.6 Allergy status to analgesic agent; Z79.899 Other long term (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
CPT/HCPCS: 87081; 87880; 99283

== ENCOUNTER 2018-08-31 11:27 | Emergency (ER) | payer OTHER ==
[~2018-08-31] VITALS: Ht 177.8 cm; Wt 113.4 kg
[~2018-08-31 11:27] MED LIST changes: +AMOXICILLIN500 MG PO; +NATURAL FIBER0.52 GM PO; +VITAMIN D1000 UNI1 PO
[2018-08-31] MEDS ORDERED: NORCO 5-325 TA1 EACH PO (14:43)
== END 2018-08-31 14:52 | disposition home or self-care (01) ==
LOC: ED 11:27
DX: R07.89 Other chest pain (principal); G40.909 Epilepsy, unspecified, not intractable, without status epilepticus; E78.00 Pure hypercholesterolemia, unspecified; Z90.49 Acquired absence of other specified parts of digestive tract; Z88.8 Allergy status to other drugs, medicaments and biological substances; Z91.041 Radiographic dye allergy status; Z79.899 Other long term (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
CPT/HCPCS: 71046; 80053; 83690; 85025; 99285-25

== ENCOUNTER 2018-09-05 16:47 | Emergency (ER) | payer OTHER ==
[~2018-09-05] VITALS: Ht 177.8 cm; Wt 104.3 kg
--- OUTSIDE RECORDS SUMMARY | ~2018-09-05 | XMS | Clinical Summary ---
Demographics + + + | Address | [address] | | | [place] [address] | + + + | Home Phone | | + + + | Preferred Language | Unknown | + + + | Marital Status | | + + + | Judaism Affiliation | 1061 | + + + | Race | Unknown | + + + | Ethnic Group | Unknown | + + + Author + + + | Author | [facility] | + + + | Organization | [facility] | + + + | Address | Unknown | + + + | Phone | Unavailable | + + + Support + + + + + | Name | Relationship | Address | Phone | + + + + + | Christy Grande | ECON | [address] | | | | | [place] | | | | | [address] | | + + + + + Care Team Providers + +------+ + | Care Service Support Representative Name | Role | Phone | + +------+ + | Sky Quach MD | PP | | + +------+ + Allergies + + + + + + | Active Allergy | Reactions | Severity | Noted | Comments | | | | | Date | | + + + + + + | Gabapentin | Rash | Medium | 05/29/19 | | | | | | 17 | | + + + + + + | Piroxicam | Rash | Medium | 07/25/19 | Pt mentions he | | | | | 16 | developed a rash | | | | | | while on this | | | | | | medication. Resolved | | | | | | immediately upon | | | | | | discontinue. | + + + + + + Current Medications + + +--------+---------+------+------+-------+ | Prescription | Sig. | Disp. | Refills | Star | End | Statu | | | | | | t | Date | s | | | | | | Date | | | + + +--------+---------+------+------+-------+ | divalproex | TAKE TWO TABLETS BY | 120 | 0 | 05/1 | | Activ | | (DEPAKOTE) 500 MG EC | MOUTH TWICE DAILY | tablet | | 09/15 | | e | | tablet | | | | 16 | | | + + +--------+---------+------+------+-------+ | methotrexate | Take 6 mg every | | | 10/27 | | Activ | | (TREXALL) 2.5 MG | | | | 04/17 | | e | | tablet | | | | 16 | | | + + +--------+---------+------+------+-------+ | Ergocalciferol | Take 50,000 capsules | | | | | Activ | | (VITAMIN D2 PO) | by mouth every 7 | | | | | e | | | days. | | | | | | + + +--------+---------+------+------+-------+ | lamoTROgine | Take 100 mg by mouth | | | | | Activ | | (LAMICTAL) 25 MG | 2 (two) times | | | | | e | | tablet | daily. Take 50 mg in | | | | | | | | morning and 100 mg | | | | | | | | in the evening. | | | | | | + + +--------+---------+------+------+-------+ | folic acid | Take 1 mg by mouth | | | | | Activ | | (FOLVITE) 1 MG | daily. | | | | | e | | tablet | | | | | | | + + +--------+---------+------+------+-------+ | torsemide | Take 20 mg by mouth | | | | | Activ | | (DEMADEX) 20 MG | as needed. | | | | | e | | tablet | | | | | | | + + +--------+---------+------+------+-------+ | Multiple | Take 1 tablet by | | | | | Activ | | Vitamins-Minerals | mouth daily. | | | | | e | | (MULTIVITAMIN WITH | | | | | | | | MINERALS) tablet | | | | | | | + + +--------+---------+------+------+-------+ | ibuprofen (MOTRIN) | Take 100 mg by mouth | | | | | Activ | | 100 MG tablet | every 6 (six) hours | | | | | e | | | as needed for | | | | | | | | Fever. 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) | | 2018 | on Only | | [employer] | | +--------+ + + + + | 08/03/ | Ancillary | | Sky Hill, | Aortic valve | | 2018 | Procedure | | MD | insufficiency, | | | | | | etiology of cardiac | | | | | | valve disease | | | | | | unspecified; Seizure | | | | | | ([facility]) | +--------+ + + + + | 08/03/ | Ancillary | | Sky Hill, | Aortic valve | | 2018 | Orders | | MD | insufficiency, | | | | | | etiology of cardiac | | | | | | valve disease | | | | | | unspecified; Seizure | | | | | | ([facility]) | +--------+ + + + + from Last 3 Months Family History + + +------+ + | Medical History | Relation | Name | Comments | + + +------+ + | Diabetes type II | Sister | | | + + +------+ + + +------+--------+ + | Relation | Name | Status | Comments | + +------+--------+ + | Sister | | | | + +------+--------+ + Social History + +-------+ +--------+------+ | Tobacco Use | Types | Packs/Day | Years | Date | | | | | Used | | + +-------+ +--------+------+ | Former Smoker | | | | | + +-------+ +--------+------+ + +---+---+---+ | Smokeless Tobacco: | | | | | Former User | | | | + +---+---+---+ + + | Tobacco Cessation: Counseling Given: No | + + + + +---------+ + | Alcohol Use | Drinks/We | oz/Week | Comments | | | ek | | | + + +---------+ + | No | | | | + + +---------+ + + + + | Sex Assigned at | Date Recorded | | | | + + + | Not on file | | + + + Last Filed Vital Signs + + + + | Vital Sign | Reading | Time Taken | + + + + | Blood Pressure | 111/63 | 02/24/2017 2:22 PM PST | + + + + | Pulse | 65 | 02/24/2017 2:22 PM PST | + + + + | Temperature | 36.4 C (97.6 F) | 02/24/2017 2:22 PM PST | + + + + | Respiratory Rate | 16 | 02/24/2017 2:22 PM PST | + + + + | Oxygen Saturation | 97% | 02/24/2017 2:22 PM PST | + + + + | Inhaled Oxygen | - | - | | Concentration | | | + + + + | Weight | 108.2 kg (238 lb 8.6 | 02/24/2017 9:14 AM PST | | | oz) | | + + + + | Height | 177.8 cm (5' 10") | 02/24/2017 9:14 AM PST | + + + + | Body Mass Index | 34.23 | 02/24/2017 9:14 AM PST | + + + + Plan of Treatment +--------+---------+ + + + | Date | Type | Specialty | Care Team | Description | +--------+---------+ + + + | 10/13/ | Office | | Jb Mendiola, | | | 2019 | Visit | | MD [address] | | | | | | [place] [address] | | | | | | [phone] | | | | | | | | +--------+---------+ + + + + + + + + | Health Maintenance | Due Date | Last Done | Comments | + + + + + | Colon Cancer | | | | | Screening | 5 | | | | (Colonoscopy) | | | | + + + + + | Vaccine: Zoster (1 | | | | | of 2) | 5 | | | + + + + + | Vaccine: Influenza | | | | | (Season Ended) | 9 | | | + + + + + | Vaccine: | | 01/08/2014 | | | Dtap/Tdap/Td (2 - | 4 | | | | Td) | | | | + + + + + Procedures + +--------+ + + + | Procedure Name | Priori | Date/Time | Associated Diagnosis | Comments | | | ty | | | | + +--------+ + + + | ECHO OUTSIDE | Routin | 08/03/2018 | Aortic valve | Results for this | | INTERPRETATION | e | 5:34 PM | insufficiency, | procedure are in the | | STANDARD | | PDT | etiology of cardiac | results section. | | | | | valve disease | | | | | | unspecified Seizure | | | | | | (HCC) | | + +--------+ + + + from Last 3 Months Results ECHO outside interpretation standard (08/03/2018 5:34 PM) + + + | Impressions | Performed At | + + + | 1. This was a technically difficult study with suboptimal views. 2. | [facility] | | Overall left ventricular systolic function is low-normal with an EF | RADIOLOGY | | between 50 - 55 %. 3. The right ventricle is normal in size and | | | function. 4. There is noza-sp-gplonwgc aortic regurgitation. 5. In | | | comparison to the previous echocardiographic study, done 07/20/16, only | | | minor changes are noted, as reported below. | | + + + + + + | Narrative | Performed At | + + + | Patient Name: DAYSI GRANDE Date of : 1965 | [facility] | | Performing Physician: Sarthak Lucia | RADIOLOGY | | | | | INDICATIONS HX OF AORTIC INSUFFICIENCY, ENDOCARDITIS, | | | POST OP GALLBLADDER CONCLUSIONS 1. This was a | | | technically difficult study with suboptimal views. 2. Overall left | | | ventricular systolic function is low-normal with an EF between 50 - 55 | | | %. 3. The right ventricle is normal in size and function. 4. There | | | is tptl-td-qocqwkum aortic regurgitation. 5. In comparison to the | | | previous echocardiographic study, done 07/20/16, only minor changes are | | | noted, as reported below. FINDINGS -------- ECG rhythm: Sinus | | | rhythm. Study: A 2-dimensional transthoracic echocardiogram with | | | m-mode, spectral and color flow Doppler was perfomed. Study: This | | | was a technically difficult study with suboptimal views. Left | | | Ventricle: Overall left ventricular systolic function is low-normal | | | with an EF between 50 - 55 %, unchanged from the previous study. | | | Left Ventricle: The left ventricle cavity size is normal. Left | | | Ventricle: Left ventricular wall thickness is normal. Left | | | Ventricle: No regional wall motion abnormalities. Left Ventricle: | | | The diastolic filling pattern is normal for the age of the patient. | | | Right Ventricle: The right ventricle is normal in size and function. | | | Right Ventricle: The RV was not well visualized. Left Atrium: The | | | left atrium is normal in size. Right Atrium: The right atrium is | | | normal in size. Aortic Valve: The aortic valve was not well | | | visualized, and its structure could not be determined with certainty, | | | but appears to most likely be trileaflet, although it was reported to | | | be bicuspid on a previous KRAIG. Aortic Valve: There is | | | wdjs-to-xprivmkz aortic regurgitation, decreased from moderate AI on | | | the prior study. It was moderate on the prior study. Aortic Valve: | | | There is no evidence of aortic stenosis. There was mild reported on | | | the prior study. The anterior leaflet Aortic Valve: is | | | moderately thickened and calcified. Mitral Valve: Normal appearing | | | mitral valve. Mitral Valve: Mild mitral regurgitation is present. | | | Mitral Valve: No evidence of MVP. Mitral Valve: Mild thickening | | | of the anterior mitral valve leaflet. Tricuspid Valve: The tricuspid | | | valve appears structurally normal. Tricuspid Valve: Trace tricuspid | | | regurgitation present. Tricuspid Valve: There is no evidence of | | | pulmonary hypertension. Tricuspid Valve: The right ventricular | | | systolic pressure (pulmonary artery systolic pressure), as measured by | | | Doppler, is 23 mm Hg. Pulmonic Valve: The pulmonic valve was not | | | well visualized. Pericardium: There is no pericardial effusion. | | | IVC/Hepatic Veins: The inferior vena cava is normal in size and | | | collapses > 50 % with sniff, indicating normal central venous | | | pressures. Aorta: The aortic root, ascending aorta and aortic arch | | | are normal. Mass: No mass visualized Thrombus: No clot visualized | | | Thrombus: No vegetation visualized. Septum: No ASD observed. | | | Septum: No VSD observed. MEASUREMENTS Ao | | | sinus: 3.[address] junct: 2.67 cm EDV(Teich): 150.69 | | | ml IVSd: 0.88 cm LVIDd: 5.55 cm LVPWd: 0.78 cm LVOT | | | Area: 3.90 cm2 LVOT Diam: 2.22 cm %FS: 21.16 % | | | EF(Teich): 42.51 % ESV(Teich): 86.63 ml LVIDs: 4.37 cm | | | SV(Teich): 64.06 ml RV Major: 8.82 cm RV Minor: 3.15 cm | | | LVEF MOD A4C: 57.64 % SV MOD A4C: 113.24 ml LVEDV MOD | | | A4C: 196.46 ml LVLd A4C: 9.01 cm LVESV MOD A4C: 83.21 ml | | | LVLs A4C: 8.29 cm LAESV(A-L): 48.21 ml LAESV Index | | | (A-L): 20.96 ml/m2 LAAs A2C: 16.67 cm2 LAESV A-L A2C: | | | 52.96 ml LALs A2C: 4.45 cm LAAs A4C: 15.18 cm2 LAESV A-L | | | A4C: 41.97 ml LALs A4C: 4.66 cm RAAs: 11.25 cm2 RAESV | | | A-L: 24.67 ml RAESV MOD: 24.34 ml RALs: 4.35 cm | | | TAPSE: 2.25 cm AV maxP.73 mmHg AV meanP.49 mmHg | | | AV Vmax: 1.78 m/s AV Vmean: 1.19 m/s AV VTI: 38.51 cm | | | JENNI Vmax: 1.78 cm2 JENNI (VTI): 2.07 cm2 AVAI (Vmax): | | | 0.00 cm2/m2 AVAI (VTI): 0.00 cm2/m2 LVOT maxP.67 mmHg | | | LVOT meanP.41 mmHg LVSI Dopp: 34.67 ml/m2 LVSV Dopp: | | | 79.74 ml LVOT Vmax: 0.81 m/s LVOT Vmean: 0.56 m/s LVOT | | | VTI: 20.44 cm MV A George: 0.45 m/s MV Dec Wapello: 2.84 m/s2 | | | MV DecT: 216.66 ms MV E George: 0.61 m/s MV E/A Ratio: | | | 1.36 MV PHT: 62.83 ms MVA By PHT: 3.50 cm2 Septal e': | | | 0.06 m/s Septal E/e': 8.91 Lateral e': 0.08 m/s Lateral | | | E/e': 7.04 TR maxP.53 mmHg TR Vmax: 1.77 m/s RV | | | s': 0.09 m/s Inside Channel Account Manager: COURT Authenticated by: Sarthak Busby | | | Khari Report Date/Time: 08-03-2018 19:45:5 | | + + + + + | Procedure Note | + + | Mohit Underwood Results In - 08/03/2018 7:50 PM PDT Patient Name: Jen GRANDE of | | : 1965Accession: [id number] Physician: Sarthak Busby | | [facility] INDICATIONS | | -HX OF AORTIC INSUFFICIENCY, ENDOCARDITIS, POST OP GALLBLADDERCONCLUSIONS 1. | | This was a technically difficult study with suboptimal views.2. Overall left ventricular | | systolic function is low-normal with an EF between 50 - 55 %.3. The right ventricle is | | normal in size and function.4. There is kvis-jc-gsyfsovr aortic regurgitation. 5. In | | comparison to the previous echocardiographic study, done 07/20/16, only minor changes are | | noted, as reported below.FINDINGS--------ECG rhythm: Sinus rhythm.Study: A | | 2-dimensional transthoracic echocardiogram with m-mode, spectral and color flow Doppler | | was perfomed. Study: This was a technically difficult study with suboptimal views.Left | | Ventricle: Overall left ventricular systolic function is low-normal with an EF between | | 50 - 55 %, unchanged from the previous study. Left Ventricle: The left ventricle cavity | | size is normal. Left Ventricle: Left ventricular wall thickness is normal. Left | | Ventricle: No regional wall motion abnormalities. Left Ventricle: The diastolic filling | | pattern is normal for the age of the patient.Right Ventricle: The right ventricle is | | normal in size and function. Right Ventricle: The RV was not well visualized.Left | | Atrium: The left atrium is normal in size.Right Atrium: The right atrium is normal in | | size. Aortic Valve: The aortic valve was not well visualized, and its structure could | | not be determined with certainty, but appears to most likely be trileaflet, although it | | was reported to be bicuspid on a previous KRAIG. Aortic Valve: There is iitj-ar-bymlcpem | | aortic regurgitation, decreased from moderate AI on the prior study. It was moderate on | | the prior study. Aortic Valve: There is no evidence of aortic stenosis. There was mild | | reported on the prior study. The anterior leaflet Aortic Valve: is moderately | | thickened and calcified.Mitral Valve: Normal appearing mitral valve. Mitral Valve: Mild | | mitral regurgitation is present. Mitral Valve: No evidence of MVP. Mitral Valve: Mild | | thickening of the anterior mitral valve leaflet.Tricuspid Valve: The tricuspid valve | | appears structurally normal. Tricuspid Valve: Trace tricuspid regurgitation present. | | Tricuspid Valve: There is no evidence of pulmonary hypertension. Tricuspid Valve: The | | right ventricular systolic pressure (pulmonary artery systolic pressure), as measured by | | Doppler, is 23 mm Hg.Pulmonic Valve: The pulmonic valve was not well | | visualized.Pericardium: There is no pericardial effusion.IVC/Hepatic Veins: The inferior | | vena cava is normal in size and collapses > 50 % with sniff, indicating normal central | | venous pressures.Aorta: The aortic root, ascending aorta and aortic arch are | | normal.Mass: No mass visualizedThrombus: No clot visualized Thrombus: No vegetation | | visualized.Septum: No ASD observed. Septum: No VSD observed.MEASUREMENTS Ao | | sinus: 3.[address] junct: 2.67 cmEDV(Teich): 150.69 mlIVSd: 0.88 cmLVIDd: | | 5.55 cmLVPWd: 0.78 cmLVOT Area: 3.90 at2MCGG Diam: 2.22 cm%FS: 21.16 %EF(Teich): | | 42.51 %ESV(Teich): 86.63 mlLVIDs: 4.37 cmSV(Teich): 64.06 mlRV Major: 8.82 | | cmRV Minor: 3.15 cmLVEF MOD A4C: 57.64 %SV MOD A4C: 113.24 mlLVEDV MOD A4C: | | 196.46 mlLVLd A4C: 9.01 cmLVESV MOD A4C: 83.21 mlLVLs A4C: 8.29 cmLAESV(A-L): | | 48.21 mlLAESV Index (A-L): 20.96 ml/m2LAAs A2C: 16.67 [id number] A-L A2C: 52.96 | | mlLALs A2C: 4.45 cmLAAs A4C: 15.18 ei6WMBIP A-L A4C: 41.97 mlLALs A4C: 4.66 | | cmRAAs: 11.25 [id number] A-L: 24.67 mlRAESV MOD: 24.34 mlRALs: 4.35 cmTAPSE: | | 2.25 cmAV maxP.73 mmHgAV meanP.49 mmHgAV Vmax: 1.78 m/Stormy Vmean: 1.19 | | m/Stormy VTI: 38.51 cmAVA Vmax: 1.78 cm2AVA (VTI): 2.07 uu2QVOA (Vmax): 0.00 | | cm2/m2AVAI (VTI): 0.00 cm2/m2LVOT maxP.67 mmHgLVOT meanP.41 mmHgLVSI Dopp: | | 34.67 ml/m2LVSV Dopp: 79.74 mlLVOT Vmax: 0.81 m/sLVOT Vmean: 0.56 m/sLVOT VTI: | | 20.44 cmMV A George: 0.45 m/sMV Dec Wapello: 2.84 m/s2MV DecT: 216.66 msMV E George: | | 0.61 m/sMV E/A Ratio: 1.36 MV PHT: 62.83 msMVA By PHT: 3.50 lt8Sryqyt e': 0.06 | | m/sSeptal E/e': 8.91 Lateral e': 0.08 m/sLateral E/e': 7.04 TR maxP.53 | | mmHgTR Vmax: 1.77 m/sRV s': 0.09 m/sSonographer: DBSAuthenticated by: Sarthak Busby | | LehrReport Date/Time: 08-03-2018 19:45:5IMPRESSION:1. This was a technically difficult | | study with suboptimal views.2. Overall left ventricular systolic function is low-normal | | with an EF between 50 - 55 %.3. The right ventricle is normal in size and function.4. | | There is ciem-qr-goxmazkg aortic regurgitation. 5. In comparison to the previous | | echocardiographic study, done 07/20/16, only minor changes are noted, as reported below. | |Ao sinus: 3.19 cm | |Ao st junct: 2.67 cm | |EDV(Teich): 150.69 ml | |IVSd: 0.88 cm | |LVIDd: 5.55 cm | |LVPWd: 0.78 cm | |LVOT Area: 3.90 cm2 | |LVOT Diam: 2.22 cm | |%FS: 21.16 % | |EF(Teich): 42.51 % | |ESV(Teich): 86.63 ml | |LVIDs: 4.37 cm | |SV(Teich): 64.06 ml | |RV Major: 8.82 cm | |RV Minor: 3.15 cm | |LVEF MOD A4C: 57.64 % | |SV MOD A4C: 113.24 ml | |LVEDV MOD A4C: 196.46 ml | |LVLd A4C: 9.01 cm | |LVESV MOD A4C: 83.21 ml | |LVLs A4C: 8.29 cm | |LAESV(A-L): 48.21 ml | |LAESV Index (A-L): 20.96 ml/m2 | |LAAs A2C: 16.67 cm2 | |LAESV A-L A2C: 52.96 ml | |LALs A2C: 4.45 cm | |LAAs A4C: 15.18 cm2 | |LAESV A-L A4C: 41.97 ml | |LALs A4C: 4.66 cm | |RAAs: 11.25 cm2 | |RAESV A-L: 24.67 ml | |RAESV MOD: 24.34 ml | |RALs: 4.35 cm | |TAPSE: 2.25 cm | |AV maxP.73 mmHg | |AV meanP.49 mmHg | |AV Vmax: 1.78 m/s | |AV Vmean: 1.19 m/s | |AV VTI: 38.51 cm | |JENNI Vmax: 1.78 cm2 | |JENNI (VTI): 2.07 cm2 | |AVAI (Vmax): 0.00 cm2/m2 | |AVAI (VTI): 0.00 cm2/m2 | |LVOT maxP.67 mmHg | |LVOT meanP.41 mmHg | |LVSI Dopp: 34.67 ml/m2 | |LVSV Dopp: 79.74 ml | |LVOT Vmax: 0.81 m/s | |LVOT Vmean: 0.56 m/s | |LVOT VTI: 20.44 cm | |MV A George: 0.45 m/s | |MV Dec Wapello: 2.84 m/s2 | |MV DecT: 216.66 ms | |MV E George: 0.61 m/s | |MV E/A Ratio: 1.36 | |MV PHT: 62.83 ms | |MVA By PHT: 3.50 cm2 | |Septal e': 0.06 m/s | |Septal E/e': 8.91 | |Lateral e': 0.08 m/s | |Lateral E/e': 7.04 | |TR maxP.53 mmHg | |TR Vmax: 1.77 m/s | |RV s': 0.09 m/s | | | |Inside Channel Account Manager: DBS | |Authenticated by: Sarthak Lucia | |Report Date/Time: 08-03-2018 19:45:5 | | | |IMPRESSION: | |1. This was a technically difficult study with suboptimal views. | |2. Overall left ventricular systolic function is low-normal with an EF between 50 - 55 %. | |3. The right ventricle is normal in size and function. | |4. There is wdrn-xo-ilniknyb aortic regurgitation. 5. In comparison to the previous echocar diographic study, done 07/20/16, only minor changes are noted, as reported below. | + + + + + + + | Performing | Address | City/State/Zipcode | Phone Number | | Organization | | | | + + + + + | [facility] | [address] | [place] [address] | | + + + + + from Last 3 Months Insurance + +--------+ +------+-------+ + | Payer | Benefi | Subscriber | Type | Phone | Address | | | t Plan | ID | | | | | | / | | | | | | | Group | | | | | + +--------+ +------+-------+ + | MEDICAID | [employer] | [id number] | | | [address] | | | [place] | | | | [place] | | | [place] | | | | [address] | | | [employer] | | | | | + +--------+ +------+-------+ + + +--------+ +--------+ + + | Guarantor Name | Accoun | Relation to | Date | Phone | Billing Address | | | t Type | Patient | of | | | | | | | | | | + +--------+ +--------+ + + | DAYSI GRANDE | Person | Self [birth year] Home: | [address] | | | al/Fam | | 1966 | [phone] | [place] | | | [place] | | | [phone] | + +--------+ +--------+ + +
--- OUTSIDE RECORDS SUMMARY | ~2018-09-05 | XMS | Encounter Summary ---
Demographics + + + | Address | [address] | | | [place] [address] | + + + | Home Phone | | + + + | Preferred Language | Unknown | + + + | Marital Status | | + + + | Tenriism Affiliation | ASG | + + + | Race | White | + + + | Ethnic Group | Not or | + + + Author + + + | Author | [facility] | + + + | Organization | [facility] | + + + | Address | Unknown | + + + | Phone | Unavailable | + + + Support + + + + + | Name | Relationship | Address | Phone | + + + + + | Christy Flaherty | ECON | [address] | | | | | [place] | | | | | [address] | | + + + + + Care Team Providers + +------+ + | Care Database Dba Name | Role | Phone | + +------+ + | Filippo Chen DO | PCP | | + +------+ + Encounter Details +--------+ + + + + | Date | Type | Department | Care Team | Description | +--------+ + + + + | 09/25/ | Telephone | Neurology at | [place], | | | 2015 | | [facility] & | | | | | | Healing [address] | | | | | | [place] Mail Code: | | | | | | [facility] | | | | | | Health and Healing, | | | | | | [address]th floor [place], | | | | | | [place] [address] | | | | | | [phone] | | | +--------+ + + + [...]
--- OUTSIDE RECORDS SUMMARY | ~2018-09-05 | XMS | Encounter Summary ---
Demographics + + + | Address | [address] | | | [place] [address] | + + + | Home Phone | | + + + | Preferred Language | Unknown | + + + | Marital Status | | + + + | Anabaptism Affiliation | ASG | + + + | Race | White | + + + | Ethnic Group | Not or | + + + Author + + + | Author | [facility] | + + + | Organization | [facility] | + + + | Address | Unknown | + + + | Phone | Unavailable | + + + Support + + + + + | Name | Relationship | Address | Phone | + + + + + | Christy Flaherty | ECON | [address] | | | | | [place] | | | | | [address] | | + + + + + Care Team Providers + +------+ + | Care Assistant Professor Nurse Education Name | Role | Phone | + +------+ + | Filippo Chen DO | PCP | | + +------+ + Encounter Details +--------+ + + + + | Date | Type | Department | Care Team | Description | +--------+ + + + + | 12/16/ | Documentati | Neurology at | Amador Mayorga N, | | | 2016 | on | [facility] & | PEDIATRIC LPN [address] | | | | | Healing [address] | | | | | [place] Mail Code: | [place], [place] | | | | | [facility] | [address] | | | | | Health and Healing, | [phone] | | | | | [address] [place] [address], | | | | | | [place] [address] | | | | | | [phone] | | | +--------+ + + + [...]
--- OUTSIDE RECORDS SUMMARY | ~2018-09-05 | XMS | Encounter Summary ---
Demographics + + + | Address | [address] | | | [place] [address] | + + + | Home Phone | | + + + | Preferred Language | Unknown | + + + | Marital Status | | + + + | Yarsanism Affiliation | ASG | + + + | Race | White | + + + | Ethnic Group | Not or | + + + Author + + + | Author | [facility] | + + + | Organization | [facility] | + + + | Address | Unknown | + + + | Phone | Unavailable | + + + Support + + + + + | Name | Relationship | Address | Phone | + + + + + | Christy Flaherty | ECON | [address] | | | | | [place] | | | | | [address] | | + + + + + Care Team Providers + +------+ + | Care Hydraulic Plumber Name | Role | Phone | + +------+ + | Filippo Chen DO | PCP | | + +------+ + Reason for Visit + + + | Reason | Comments | + + + | Epileptic seizures | | + + + Encounter Details +--------+ + + + + | Date | Type | Department | Care Team | Description | +--------+ + + + + | 03/26/ | MyChart | Neurology at | [facility] | RE: Seizures and | | 2016 | Encounter | [facility] & | DO Lon [address] | Medications | | | | Healing [address] | | | | | [place]rera Mail Code: | [place], [place] | | | | | [facility] | [address] | | | | | Health and Healing, | [phone] | | | | | [address] [place] [address], | | | | | | [place] [address] | | | | | | [phone] | | | +--------+ + + + [...]
--- OUTSIDE RECORDS SUMMARY | ~2018-09-05 | XMS | Encounter Summary ---
Demographics + + + | Address | [address] | | | [place] [address] | + + + | Home Phone | | + + + | Preferred Language | Unknown | + + + | Marital Status | | + + + | Cheondoism Affiliation | ASG | + + + | Race | White | + + + | Ethnic Group | Not or | + + + Author + + + | Author | [facility] | + + + | Organization | [facility] | + + + | Address | Unknown | + + + | Phone | Unavailable | + + + Support + + + + + | Name | Relationship | Address | Phone | + + + + + | Christy Flaherty | ECON | [address] | | | | | [place] | | | | | [address] | | + + + + + Care Team Providers + +------+ + | Care Handy Man Name | Role | Phone | + +------+ + | Filippo Chen DO | PCP | | + +------+ + Encounter Details +--------+ + + + + | Date | Type | Department | Care Team | Description | +--------+ + + + + | 09/05/ | MyChart | Neurology at | Noe Arambula, | Medication changes | | 2016 | Encounter | [facility] & | | | | | | Healing [address] | | | | | | [place] Mail Code: | | | | | | [facility] | | | | | | Health and Healing, | | | | | | [address] [facility], | | | | | | [place] [address] | | | | | | [phone] | | | +--------+ + + + [...]
--- OUTSIDE RECORDS SUMMARY | ~2018-09-05 | XMS | Encounter Summary ---
Demographics + + + | Address | [address] | | | [place] [address] | + + + | Home Phone | | + + + | Preferred Language | Unknown | + + + | Marital Status | | + + + | Mosque Affiliation | ASG | + + + | Race | White | + + + | Ethnic Group | Not or | + + + Author + + + | Author | [facility] | + + + | Organization | [facility] | + + + | Address | Unknown | + + + | Phone | Unavailable | + + + Support + + + + + | Name | Relationship | Address | Phone | + + + + + | Christy Flaherty | ECON | [address] | | | | | [place] | | | | | [address] | | + + + + + Care Team Providers + +------+ + | Care Medical Dir Name | Role | Phone | + +------+ + | Filippo Chen DO | PCP | | + +------+ + Reason for Visit + + + | Reason | Comments | + + + | Outside Records | 05/12/17 Fecal Elastase Results- [facility] | | Received | | + + + Encounter Details +--------+ + + + + | Date | Type | Department | Care Team | Description | +--------+ + + + + | 05/20/ | Abstract | Digestive Health | [facility], | Outside Records | | 2018 | | Center at [facility] [address] | [address] | Received (05/12/17 | | | | [address] | [address] | Fecal Elastase | | | | Mailcode: Center | [place], [place] | Results- [facility]) | | | | for Health and | [address] | | | | | [facility] | [phone] | | | | | [place], [place] | | | | | | [address] | | | | | | [phone] | | | +--------+ + + + [...]
--- OUTSIDE RECORDS SUMMARY | ~2018-09-05 | XMS | Encounter Summary ---
Demographics + + + | Address | [address] | | | [place] [address] | + + + | Home Phone | | + + + | Preferred Language | Unknown | + + + | Marital Status | | + + + | Pentecostal Affiliation | ASG | + + + | Race | White | + + + | Ethnic Group | Not or | + + + Author + + + | Author | [facility] | + + + | Organization | [facility] | + + + | Address | Unknown | + + + | Phone | Unavailable | + + + Support + + + + + | Name | Relationship | Address | Phone | + + + + + | Christy Flaherty | ECON | [address] | | | | | [place] | | | | | [address] | | + + + + + Care Team Providers + +------+ + | Care Professor Of Mechanical Engineering Name | Role | Phone | + +------+ + | Filippo Chen DO | PCP | | + +------+ + Reason for Visit Consultation (Routine) +--------+--------+ + + + + | Status | Reason | Specialty | Diagnoses / | Referred By | Referred To | | | | | Procedures | Contact | Contact | +--------+--------+ + + + + | Closed | | Neurology | Diagnoses | [place], | Jairon, | | | | | Partial | MD Sylvia | MD Anthony | | | | | symptomatic | [address] | [address] | | | | | epilepsy | Ave | Ave | | | | | with complex | [place], [place] | [place], [place] | | | | | partial | [address] | [address] | | | | | seizures, | Phone: | Phone: | | | | | intractable, | [phone] | [phone] | | | | | without | Fax: | Fax: | | | | | status | [phone] | [phone] | | | | | epilepticus | | | | | | | ([facility]) | | | | | | | Procedures | | | | | | | CONSULT TO | | | | | | | NEUROLOGY | | | +--------+--------+ + + + + Encounter Details +--------+---------+ + + + | Date | Type | Department | Care Team | Description | +--------+---------+ + + + | 09/04/ | Office | Neurology at | Noe Arambula, | Encounter for | | 2016 | Visit | [facility] & | MD | long-term current | | | | Healing [address] | | use of medication | | | | [address] Mail Code: | | (Primary Dx); | | | | [facility] | | Localization-related | | | | Health and Healing, | | symptomatic | | | | 8th floor [place], | | epilepsy and | | | | [place] [address] | | epileptic syndromes | | | | [phone] | | with complex partial | | | | | | seizures, | | | | | | intractable, without | | | | | | status epilepticus | | | | | | (HCC); Cerebral | | | | | | cavernoma (HCC) | +--------+---------+ + + + Social History [...] + + + | Blood Pressure | 134/75 | 09/05/2015 2:49 PM | | | | | PDT | | + + + + + | Pulse | 72 | 09/05/2015 2:49 PM | | | | | PDT | | + + + + + | Temperature | - | - | | + + + + + | Respiratory Rate | 16 | 09/05/2015 2:49 PM | | | | | PDT | | + + + + + | Oxygen Saturation | - | - | | + + + + + | Inhaled Oxygen | - | - | | | Concentration | | | | + + + + + | Weight | 116 kg (255 lb 12.8 | 09/05/2015 2:49 PM | | | | oz) | PDT | | + + + + + | Height | 177.8 cm (5' 10") | 09/05/2015 2:49 PM | | | | | PDT | | + + + + + | Body Mass Index | 36.7 | 09/05/2015 2:49 PM | | | | | PDT | | + + + + + documented in this encounter Progress Notes Noe Arambula MD - 09/05/2015 2:55 PM PDTFormatting of this note might be different fro m the original. [facility] Note Author: Noe Arambula MD Date/Time: 09/05/2015 2:55 PM Requesting Attending: Sylvia Triana MD HPI: Daysi Flaherty is a 50 year old right-handed man who is being seen in [facility] for evaluation of surgical evaluation for epilepsy. He has had seizures since he wa s 34 years old. Initially he was having events where he was unable to speak, he would stare off and would not move. He notes that he was conscious of what was going on however he could not move or speak. This would last about 3 minutes and could happen a couple times per week but then increased to a few times per day. He spoke to his primary doctor about this around the time of onset however they were not certain what the episodes were. He then had a secon darily generalized seizure on October,. His reports that leading up to this he h ad started brushing his teeth with bleach to help whiten them. He was having migraines at th is time as well. He was not feeling ill, nauseated or febrile. The seizure itself came out o f sleep. His was woken by a yell followed by full body convulsions. This lasted about f aubrey minutes and he was then unconscious for about 30 minutes. They called 911 and took him t o the hospital in [place]. They did an MRI which was initially read as normal. They also d id an EEG that his remembers being abnormal however I do not have this record. He remai leann in the ED for a few hours and was sent home. He was pretty fatigued for the next week an d does not have much memory of that time. He was then referred to his neurologist Dr. Estrada in [place]. He reviewed the MRI and saw a cavernoma in the left temporal lobe. He was a lso started on Dilantin and was still having seizures also, there was a concern that his gum s were getting soft. They then switched to Tegretol in 2006 which he felt great on. They do not think that he had seizures while on Tegretol, they also feel that this helped with his h eadaches. Unfortunately they had to switch off after two months due to insurance not paying for it. He was then started on Depakote which he remained on until July 2014. This has helped with the headaches significantly. He had a GTC in 2010 in the setting of him self tapering the Depakote. Then in February he had two GTCs, he was consistently taking Depakote but had started a very stressful job that resulted in a 60+% pay cut. He was also not sleeping well. There were no medication ava nges at this time. He then had another two GTC in December and January 2014. He was also hav ing fevers around this time. Then in September 2014 an ID specialist in [facility] determined khadijah t he had Rheumatic fever which was the cause of his prolonged fevers. He had four GTCs in 13 hours in September 2014 in the setting of the persistent illness and two courses of amoxicillin. In July 2014 he was switched from Depakote to topiramate. This resulted in a loud cough, sig nificant weight loss and cognitive side effects. They switched him back to Depakote. He also has a history of migraines with aura that are classic. He will take ibuprofen and l ay down. These have all but stopped since starting Depakote. He has had two partial seizures in the last week however he did not have any prior to that since November 2014. Prior Evaluation: EEG from [facility] [employer] in 2014 was normal. [facility] showed the left mesial temporal cavernoma AED Trials: - Phenytoin: Bleeding gums - Tegretol: Very well-tolerated discontinued due to insurance coverage -Topiramate: discontinued due to cognitive and other side effects - Depakote well-tolerated with long periods of seizure freedom, currently 1000 mg twice a d ay Current: Depakote 1000 mg BID Epilepsy Risk Factors: history: normal Developmental history: normal History of febrile seizures: none Family history of epilepsy: none History of head injury: He has had two concussions playing sports in high school and colle ge, both of these had loss of consciousness of about 30 minutes each. History of meningitis/encephalitis: none Past medical history: SOB (shortness of breath) Sleep apnea Headache Epilepsy (HCC) Past surgical history: History reviewed. No pertinent past surgical history. Medications: divalproex DR 500 mg oral tablet,delayed release (DR/EC), Take 2 tablets by mouth two times daily. ERGOCALCIFEROL, VITAMIN D2, (VITAMIN D ORAL), Take 50,000 Units by mouth every seven days. HYDROcodone-acetaminophen 10-325 mg oral tablet, Take 1 tablet by mouth every four hours as needed. penicillin v potassium 500 mg oral tablet, Take 500 mg by mouth three times daily. Allergies: The patient is allergic to piroxicam. Family history: See "Seizure risk factors" section above. Social history: Substance use: Formerly chewed tobacco but quit in 2012, no alcohol, no drugs Living situation: Lives with his in [place], [place] Marital Status: Education: Some college Work: Not currently working due to seizures Driving: Not currently driving due to seizures History Social History Marital Status: Spouse Name: N/A Number of Children: N/A Years of Education: N/A Occupational History Not on file. Social History Main Topics Smoking status: Never Smoker Smokeless tobacco: Former User Types: Chew Alcohol Use: No Drug Use: No Sexual Activity: Not on file Other Topics Concern Not on file Social History Narrative ROS: A complete review of systems was done with patient, reviewed by me, and documented in the accompanying scanned clinic intake notes. Notable positives: Weight gain, fatigue, numbn ess, visual changes, chest pain, irregular heartbeat, shortness of breath, swelling of legs, change in bowel habits, muscle pain, and joint pain. Physical examination: Filed Vitals: 09/05/2015 2:49 PM Height: 1.778 m (5' 10") Weight: 116.03 kg (255 lb 12.8 oz) BP: 134/75 Pulse: 72 Resp: 16 PainSc: 08 - Very Severe PainLoc: Shoulder (Bilateral) BMI: 36.7 kg/(m^2) General: The patient is alert and cooperative with the exam. HEENT: Normocephalic, atraumatic. Neck: Supple. Chest: Unlabored breathing. Mood: Appropriate affect. Neurologic examination: Mental Status: Alert and oriented x 3. Language fluent, comprehension intact. Fund of knowl edge appropriate for educational level. Mood appears euthymic. Cranial Nerves: Pupils equal, round, and reactive to light, extraocular movements intact. V isual carter full to confrontation. Facial sensation and strength intact. Oropharynx clear. Symmetric palate rise. Tongue midline. Shoulder shrug and head turn full power and symmetric . Motor: 5/5 power in all muscle group of upper and lower extremities. Normal tone and bulk. No pronator drift. Mild bilateral tremor. DTR: Symmetric in upper (2+) and lower (2+) extremities. Sensory: Intact to light touch. Coordination and Gait: Normal kxxdao-jlro-sgevuh and xgab-an-gmvc intact. Labs: Lab Results Component Value Date VALPRACIDCON 95.7 09/05/2015 Lab Results Component Value Date WBC 6.12 09/05/2015 HB 16.0 09/05/2015 HCT 44.7 09/05/2015 PLT 177 09/05/2015 MCV 85.8 09/05/2015 RDW 37.0 09/05/2015 Lab Results Component Value Date NA 141 09/05/2015 K 4.1 09/05/2015 CL 105 09/05/2015 BICARB 30 09/05/2015 BUN 13 09/05/2015 CR 1.04 09/05/2015 GLU 85 09/05/2015 CA 8.6 09/05/2015 AST 26 09/05/2015 ALT 36 09/05/2015 AP 68 09/05/2015 TBILI 0.5 09/05/2015 TP 6.9 09/05/2015 ALB 3.6 09/05/2015 ANIONGAP 6 09/05/2015 ANIONALBCOR 7 09/05/2015 Diagnosis: - Localization-related epilepsy with complex partial seizures, intractable, without status epilepticus - Cerebral cavernoma Impression: Daysi Flaherty is a 50 year old right-handed man who is being seen in [facility] for evaluation of surgical evaluation for epilepsy. His history is certainly consistent with the diagnosis of epilepsy. He has had generalized tonic-clonic seizures wit h prolonged postictal state. His MRI is also shows cerebral cavernoma in the left mesial tem poral region which is a highly epileptogenic Center. He is currently on Depakote 1000 mg twi ce a day and is tolerating this well however he has had some breakthrough seizures on this d ose. His level today was 95 which is on the high end of normal. We discussed adding lamotrig ine to his regimen to help obtain better seizure control. Another consideration could be ret rying Tegretol since he had a good response to this in the past. In addition we will pursue further surgical evaluation by arranging EMU admission to localize his seizure onset. If thi s correlates to his MRI finding he could be a really good surgical candidate. We will also h elp arrange for neuropsychological testing to help with surgical evaluation. He will follow- up in clinic after EMU admission. Recommendations: 1. Continue Depakote 1000 mg twice a day, labs as above 2. Add lamotrigine, will provide instructions via my chart 3. EMU admission, neuropsychological evaluation 4. follow-up after EMU admission I spent greater than 60 minutes with this patient, of which greater than 50% was spent coun seling the patient spent regarding his evaluation and treatment options. Did you review any brain imaging study results, if available? (Choose "Yes" if you looked a nd no results were available for review.): Yes Did you review any EEG study results, if available? (Choose "Yes" if you looked and no resu lts were available for review.): Yes Electronically signed on 09/05/2015 by Noe Arambula MD. Fermentation Operator Department of Neurology [facility] documented in this en counter Plan of Treatment Not on filedocumented as of this encounter Results VALPROIC ACID, PLASMA (09/05/2015 4:10 PM PDT) + +-------+ + + + | Component | Value | Ref Range | Performed | Pathologist | | | | | At | Signature | + +-------+ + + + | VALPROIC | 95.7 | 50.0 - 100.0 | [facility] | | | ACID | | ug/mL | LABORATORY | | | | | | SERVICES, | | | | | | CORE | | + +-------+ + + + + + | Specimen | + + | Blood | + + + + + + + | Performing | Address | City/State/Zipcode | Phone Number | | Organization | | | | + + + + + | [facility] | [address] | [place] [address] | | | SERVICES, CORE | [address] | | | + + + + + COMPLETE METABOLIC SET (NA,K,CL,CO2,BUN,CREAT,GLUC,CA,AST,ALT,BILI TOTAL,ALK PHOS,ALB,PROT TOTAL) (09/05/2015 4:10 PM PDT) + +---------+ + + + | Component | Value | Ref Range | Performed | Pathologist | | | | | At | Signature | + +---------+ + + + | GLUCOSE, | 85 | 60 - 99 mg/dL | [facility] | | | PLASMA | | | LABORATORY | | | (LAB) | | | SERVICES, | | | | | | CORE | | + +---------+ + + + | BUN, PLASMA | 13 | 6 - 20 mg/dL | [facility] | | | (LAB) | | | LABORATORY | | | | | | SERVICES, | | | | | | CORE | | + +---------+ + + + | CREATININE | 1.04 | 0.70 - 1.30 | [facility] | | | PLASMA | | mg/dL | LABORATORY | | | (LAB) | | | SERVICES, | | | | | | CORE | | + +---------+ + + + | EGFR | >60 | >60 mL/min | [facility] | | | - | | | LABORATORY | | | LIBYAN | | | SERVICES, | | | | | | CORE | | + +---------+ + + + | EGFR NON | >60 | >60 mL/min | [facility] | | | -AMADA | | | LABORATORY | | | RICAN | | | SERVICES, | | | | | | CORE | | + +---------+ + + + | SODIUM, | 141 | 136 - 145 | [facility] | | | PLASMA | | mmol/L | LABORATORY | | | (LAB) | | | SERVICES, | | | | | | CORE | | + +---------+ + + + | POTASSIUM, | 4.1 | 3.4 - 5.0 | [facility] | | | PLASMA | | mmol/L | LABORATORY | | | (LAB) | | | SERVICES, | | | | | | CORE | | + +---------+ + + + | CHLORIDE, | 105 | 97 - 108 mmol/L | [facility] | | | PLASMA | | | LABORATORY | | | (LAB) | | | SERVICES, | | | | | | CORE | | + +---------+ + + + | TOTAL CO2, | 30 | 21 - 32 mmol/L | [facility] | | | PLASMA | | | LABORATORY | | | (LAB) | | | SERVICES, | | | | | | CORE | | + +---------+ + + + | CALCIUM, | 8.6 | 8.6 - 10.2 | [facility] | | | PLASMA | | mg/dL | LABORATORY | | | (LAB) | | | SERVICES, | | | | | | CORE | | + +---------+ + + + | BILIRUBIN | 0.5 | 0.3 - 1.2 mg/dL | [facility] | | | TOTAL | | | LABORATORY | | | | | | SERVICES, | | | | | | CORE | | + +---------+ + + + | TOTAL | 6.9 | 6.4 - 8.2 g/dL | [facility] | | | PROTEIN, | | | LABORATORY | | | PLASMA | | | SERVICES, | | | (LAB) | | | CORE | | + +---------+ + + + | ALBUMIN, | 3.6 | 3.5 - 4.7 g/dL | [facility] | | | PLASMA | | | LABORATORY | | | (LAB) | | | SERVICES, | | | | | | CORE | | + +---------+ + + + | ALK PHOS | 68 | 53 - 128 U/L | [facility] | | | | | | LABORATORY | | | | | | SERVICES, | | | | | | CORE | | + +---------+ + + + | AST(SGOT) | 26 | <=41 U/L | [facility] | | | | | | LABORATORY | | | | | | SERVICES, | | | | | | CORE | | + +---------+ + + + | ALT (SGPT) | 36 | <=60 U/L | [facility] | | | | | | LABORATORY | | | | | | SERVICES, | | | | | | CORE | | + +---------+ + + + | ANION | 7 | 4 - 11 mmol/L | [facility] | | | GAP(ALB | | | LABORATORY | | | CORRECTED) | | | SERVICES, | | | | | | CORE | | + +---------+ + + + | POTASSIUM | No Hemo | | [facility] | | | CMNT | | | LABORATORY | | | | | | SERVICES, | | | | | | CORE | | + +---------+ + + + | BILI T CMNT | No Hemo | | [facility] | | | | | | LABORATORY | | | | | | SERVICES, | | | | | | CORE | | + +---------+ + + + | AST CMNT | No Hemo | | [facility] | | | | | | LABORATORY | | | | | | SERVICES, | | | | | | CORE | | + +---------+ + + + | ANION GAP | 6 | mmol/L | [facility] | | | | | | LABORATORY | | | | | | SERVICES, | | | | | | CORE | | + +---------+ + + + + + | Specimen | + + | Blood | + + + + + | Narrative | Performed At | + + + | GFR is estimated using the MDRD equation recommended by the | [facility] | | National Kidney Disease Education Program. Estimated GFR | LABORATORY | | Interpretive Information: <60 mL/min/1.73 sq | SERVICES, CORE | | m Chronic Kidney Disease <15 mL/min/1.73 | | | sq m Kidney Failure Estimated GFR greater | | | that 60 mL/min/1.73 sq m is of limited clinical value. The MDRD | | | equation is not valid in the following situations: - Patients under | | | 18 years of age - Severe malnutrition or obesity - Vegetarian diet | | | - Rapidly changing kidney function | | + + + + + + + + | Performing | Address | City/State/Zipcode | Phone Number | | Organization | | | | + + + + + | [facility] [email or web address] | [address] | [place] [address] | | | SERVICES, CORE | [address] | | | + + + + + documented in this encounter Visit Diagnoses + + | Diagnosis | + + | Encounter for long-term current use of medication - Primary | + + | Localization-related symptomatic epilepsy and epileptic syndromes with complex partial | | seizures, intractable, without status epilepticus (HCC) Localization-related (focal) | | (partial) epilepsy and epileptic syndromes with complex partial seizures, with | | intractable epilepsy | + + | 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
--- OUTSIDE RECORDS SUMMARY | ~2018-09-05 | XMS | Encounter Summary ---
Demographics + + + | Address | [address] | | | [place] [address] | + + + | Home Phone | | + + + | Preferred Language | Unknown | + + + | Marital Status | | + + + | Pentecostalism Affiliation | ASG | + + + | Race | White | + + + | Ethnic Group | Not or | + + + Author + + + | Author | [facility] | + + + | Organization | [facility] | + + + | Address | Unknown | + + + | Phone | Unavailable | + + + Support + + + + + | Name | Relationship | Address | Phone | + + + + + | Christy Flaherty | ECON | [address] | | | | | [place] | | | | | [address] | | + + + + + Care Team Providers + +------+ + | Care Cytogenetics Laboratory Manager Name | Role | Phone | + +------+ + | Filippo Chen DO | PCP | | + +------+ + Encounter Details +--------+ + + + + | Date | Type | Department | Care Team | Description | +--------+ + + + + | 12/17/ | Documentati | Neurology at | Amador Mayorga N, | | | 2016 | on | [facility] & | RESEARCH STATISTICIAN [address] | | | | | Healing [address] | | | | | Hector Cabrera Mail Code: | [place], [place] | | | | | [facility] | [address] | | | | | Health and Healing, | [phone] | | | | | [address] [place] [address], | | | | | | [place] [address] | | | | | | [phone] | | | +--------+ + + + [...]
--- OUTSIDE RECORDS SUMMARY | ~2018-09-05 | XMS | Encounter Summary ---
Demographics + + + | Address | [address] | | | [place] [address] | + + + | Home Phone | | + + + | Preferred Language | Unknown | + + + | Marital Status | | + + + | Church Affiliation | ASG | + + + | Race | White | + + + | Ethnic Group | Not or | + + + Author + + + | Author | [facility] | + + + | Organization | [facility] | + + + | Address | Unknown | + + + | Phone | Unavailable | + + + Support + + + + + | Name | Relationship | Address | Phone | + + + + + | Christy Flaherty | ECON | [address] | | | | | [place] | | | | | [address] | | + + + + + Care Team Providers + +------+ + | Care Transit Clerk Name | Role | Phone | + [...] | | Recurrent | MD Taiwo | [facility] [address] | | | | | pancreatitis | [address] | [address] | | | | | ([facility]) | [address] | Mailcode: | | | | | Procedures | Rd | [facility] | | | | | CT | [place], [place] | for Health | | | | | MULTIPHASE | [address] | and Healing, | | | | | PANCREAS AND | Phone: | 3rd Floor | | | | | PELVIS [address] | [phone] | [place], [place] | | | | | CONTRAST | Fax: | [address] | | | | | [place] | [phone] | Phone: | | | | | ABD&PELV 1+ | | [phone] | | | | | SECTION/REGN | | Fax: | | | | | S | | [phone] | +--------+--------+ + + + + Reason [...] | | 2018 | | Center at [facility] [address] | [address] | teaching, guidance, | | | | [address] | [address] | and counseling | | | | Mailcode: Center | [place], [place] | | | | | [facility] and | [address] | | | | | [facility], [facility] [address] | [phone] | | | | | [place], [place] | | | | | | [address] | | | | | | [phone] | | | +--------+ + + + [...] CT of the abdomen with and without | [facility] | | contrast. CT of the pelvis with contrast. HISTORY: Chronic | RADIOLOGY VOICE | | pancreatitis changes. Negative for malignancy. COMPARISON: CT | RECOGNITION | | pancreatic protocol 03/11/2017. TECHNIQUE: Unenhanced, arterial, | | | and portal venous abdominal CT with non-ionic iodinated intravenous | | | contrast. CT of the pelvis in the portal phase. Coronal and | | | sagittal reformats were reviewed. FINDINGS: LOWER THORAX: Trace | | | right basilar atelectasis/pleural-parenchymal scarring. | | | PANCREATICOBILIARY: The pancreas is homogeneously enhancing. Question | | | trace peripancreatic stranding/fluid adjacent the pancreatic head, | | | although improved relative to prior study. No ductal dilatation is | | | noted. LIVER: Unremarkable. SPLEEN: Unremarkable. ADRENALS: | | | Unremarkable. KIDNEYS/URETERS: Left inferior pole simple cyst. GI | | | TRACT: Visualized portions are unremarkable. PERITONEUM: | | | Unremarkable. LYMPH NODES: Unremarkable. VESSELS: Unremarkable. | | | BONES AND SOFT TISSUES: No suspicious osseous lesions. | | | IMPRESSION: Since 03/11/2017, improved peripancreatic inflammatory | | | changes, with question of minimal residual stranding/fluid adjacent | | | to the pancreatic head. Pancreatic parenchyma is homogeneous without | | | focal lesion identified. I have personally reviewed the images | | | and, if necessary, edited the report. I agree with the report as | | | now presented. | | + + + + + | Procedure Note | + + | Service Account, [employer] Res In Interface - 07/29/2017 5:49 PM [...] | | LAB | | | | [place] [address] | | | | | | | | | | + + + + + + + + | Specimen | + + | Saliva | + + + + + | [...] Diagnosis | + + | Recurrent pancreatitis (HCC) - Primary Chronic pancreatitis | + + | Constipation, unspecified constipation type | + + documented in this encounter"
--- OUTSIDE RECORDS SUMMARY | ~2018-09-05 | XMS | Encounter Summary ---
Demographics + + + | Address | [address] | | | [place] [address] | + + + | Home Phone [...] + + + | Author | [facility] | + + + | Organization | [facility] | + + + | Address | Unknown | + + + | Phone | Unavailable | + + + Support + + + + + | Name | Relationship | Address | Phone | + + + + + | Christy Flaherty | ECON | [address] | | | | | [place] | | | | | [address] | | + + + + + Care Team Providers + +------+ + | Care Director Of In Service Education Name | Role | Phone | + +------+ + | Filippo Chen DO | PCP | | + +------+ + Encounter Details +--------+ + + + + | Date | Type | Department | Care Team | Description | +--------+ + + + + | 02/26/ | Procedure | Radiology/Imaging | | | | 2017 | Pass | Lab at [facility] [address] | | | | | | [address] | | | | | | Mailcode: [facility] | | | | | | [facility] | | | | | | and Healing, 3rd | | | | | | Floor [place], [place] | | | | | | [address] | | | | | | [phone] | | | +--------+ + + + [...]
--- OUTSIDE RECORDS SUMMARY | ~2018-09-05 | XMS | Encounter Summary ---
Demographics + + + | Address | [address] | | | [place] [address] | + + + | Home Phone | | + + + | Preferred Language | Unknown | + + + | Marital Status | | + + + | Uatsdin Affiliation | ASG | + + + | Race | White | + + + | Ethnic Group | Not or | + + + Author + + + | Author | [facility] | + + + | Organization | [facility] | + + + | Address | Unknown | + + + | Phone | Unavailable | + + + Support + + + + + | Name | Relationship | Address | Phone | + + + + + | Christy Flaherty | ECON | [address] | | | | | [place] | | | | | [address] | | + + + + + Care Team Providers + +------+ + | Care Locomotive Driver Name | Role | Phone | + +------+ + | Filippo Chen DO | PCP | | + +------+ + Reason for Visit + + + | Reason | Comments | + + + | Pre-operative | | | evaluation | | + + + Encounter Details +--------+ + + + + | Date | Type | Department | Care Team | Description | +--------+ + + + + | 04/06/ | Telephone-S | Preoperative | | Pre-operative | | 2018 | cheduled | Medicine Clinic at | | evaluation | | | | [facility] | | | | | | Stay [address] | | | | | | [facility] | | | | | | Mailcode: [facility] | | | | | | [address] | | | | | | [address] [place], [place] | | | | | | [address] | | | | | | [phone] | | | +--------+ + + + + Anesthesia Record + + + + + | Procedure Name | Responsible | Anesthesia Start | Anesthesia Stop Time | | | Anesthesiologist | Time | | + + + + + | EUS UPPER | Yanni Lim, | 04/09/17 1304 | 04/09/17 1422 | | | MD | | | + + + + + +----+---+ + + | Da | T | Event | Comment | | te | i | | | | | m | | | | | e | | | +----+---+ + + | 01 | 1 | Eq Check | Anesthesia machine checked Equipment verified | | /1 | 3 | | | | 2/ | 0 | | | | 20 | 0 | | | | 18 | | | | +----+---+ + + | | 1 | Pt. Check | Prior to anesthesia start, pt. Identified, examined, chart | | | 3 | | reviewed, PARQ held, anesthetic plan made or approved by | | | 0 | | attending anesthesiologist. NPO status confirmed as appropriate | | | 1 | | for procedure Preoperative evaluation: unchanged | +----+---+ + + | | 1 | An Start | | | | 3 | | | | | 0 | | | | | 4 | | | +----+---+ + + | | 1 | Vitals | Monitors applied Vital signs checked Patient ready for anesthesia | | | 3 | Checked | | | | 0 | | | | | 7 | | | +----+---+ + + | | 1 | O2 by NC | | | | 3 | | | | | 0 | | | | | 8 | | | +----+---+ + + | | 1 | Abx held | Contraindicated, or not indicated for this procedure, or already | | | 3 | Medical or | receiving antibiotics | | | 0 | Surgical | | | | 8 | Reason | | +----+---+ + + | | 1 | Ready | | | | 3 | | | | | 0 | | | | | 9 | | | +----+---+ + + | | 1 | Pause | | | | 3 | | | | | 2 | | | | | 2 | | | +----+---+ + + | | 1 | Incision | | | | 3 | | | | | 2 | | | | | 3 | | | +----+---+ + + | | 1 | Surgery end | | | | 4 | | | | | 0 | | | | | 9 | | | +----+---+ + + | | 1 | Anesthesia | | | | 4 | End | | | | 2 | | | | | 2 | | | +----+---+ + + +------+ | Meds | +------+ + + + No medications | on file. | + + + + + | No agents on file. | + + + + | No blood administrations on file. | + + +--------+ + + + | Type | Details | Placement | Removal | +--------+ + + + | Cal | 04/09/17; 1120; Tresa Jorge RN; | 04/09/17 1120 by | 04/10/17 1200 by | | eral | Right; Hand; 20 g; Lidocaine; No; | Tresa Devlin RN | Sandy Zhang RN | | IV | Positive; 04/10/17; 1200; | | | | | Discharge | | | +--------+ + + + documented in this encounter Social History + +-------+ +--------+------+ | Tobacco [...] + + documented as of this encounter Patient Instructions Patient Instructions Vinicio Lily, RN - 04/06/2017 4:27 PM PSTFormatting of this note maksim ht be different from the original. PREOPERATIVE INSTRUCTIONS Do not eat or drink anything after midnight the night before surgery. TAKE the following medications with a sip of water on the morning of surgery: ACETAMINOPHEN 325 MG TABLET LAMOTRIGINE 25 MG TABLET Do NOT take the following medications on the morning of surgery: DIVALPROEX 500 MG TABLET,DELAYED RELEASE VITAMIN D ORAL FOLIC ACID 1 MG TABLET METHOTREXATE SODIUM 2.5 MG TABLET POLYETHYLENE GLYCOL 3350 17 GRAM/DOSE ORAL POWDER Unless Otherwise Directed by your Surgeon Do not take any Aspirin, vitamin E or non-ster oidal anti-inflammatory (NSAIDs i.e. Advil, Aleve, Ibuprofen) or herbal supplements seven da ys prior to your surgery. These drugs may interfere with normal blood clotting and may cause excessive bleeding and bruising during or after the surgery. If you are taking Coumadin (warfarin), Plavix or any other blood thinners please let you r surgical team know as medication changes will be necessary. If you need a pain medication for general purposes, use Tylenol as directed. If you are in doubt about any medications that you are taking, please contact our office . Important Guidelines Do not smoke, drink alcohol or use recreational drugs for 24 hours before your surgery Do not eat any hard candy or chew gum after midnight the night before your surgery. Watch for any change in your health condition. Let your surgeon know right away if you do not feel well. Do not wear makeup, perfume, lotions or powder. Remove any nail yemeni from at least one fingernail. Do not wear any jewelry to the hospital. Wear loose, comfortable clothing. Bring the case and solution for your contact lenses or wear your glasses. Leave all your valuables at home. Allow enough travel time so you re not late for your check in for surgery. Take a bath or shower and remember to shampoo your hair using your usual hair product be fore your arrival at the hospital. Please remember to brush your teeth the night before and the morning of your procedure. Surgery Check in Locations Day Stay Unit [address], fourth floor Room 4519 Surgery Check in Time: Someone from your surgeon's office or [facility] will provide you with information regarding your check in time. If you have any questions about this, pl ease contact your surgeon's office. Going Home Your surgical team will decide when you are medically ready to go home. If you are released to go home on the same day as your procedure/surgery please note the following: You will not be able to drive. You will be required to have a competent adult drive you or accompany you by taxi or pub lic transportation on the day of discharge. It is also required that you have a competent adult assist you and look after you on the first night after you have undergone regional blocks (72 hours for patients going home with regional block pump), deep sedation, and/or general anesthesia. If you have questions or concerns after you go home, call your doctor s office. If it is after office hours, call the [facility] roofing machine operator at [phone] and ask them to page your doc tor. documented in this encounter Plan of Treatment Not on filedocumented as of this encounter Visit Diagnoses Not on filedocumented in this encounter"
--- OUTSIDE RECORDS SUMMARY | ~2018-09-05 | XMS | Encounter Summary ---
Demographics + + + | Address | [address] | | | [place] [address] | + + + | Home Phone | | + + + | Preferred Language | Unknown | + + + | Marital Status | | + + + | Yarsanism Affiliation | ASG | + + + | Race | White | + + + | Ethnic Group | Not or | + + + Author + + + | Author | [facility] | + + + | Organization | [facility] | + + + | Address | Unknown | + + + | Phone | Unavailable | + + + Support + + + + + | Name | Relationship | Address | Phone | + + + + + | Christy Flaherty | ECON | [address] | | | | | [place] | | | | | [address] | | + + + + + Care Team Providers + +------+ + | Care Marine Diesel Technician Name | Role | Phone | + +------+ + | Filippo Chen DO | PCP | | + +------+ + Encounter Details +--------+ + + + + | Date | Type | Department | Care Team | Description | +--------+ + + + + | 04/26/ | Procedure | Radiology/Imaging | | | | 2018 | Pass | Lab at [facility] [address] | | | | | | [address] | | | | | | Mailcode: [facility] | | | | | | [facility] | | | | | | and Healing, 3rd | | | | | | Floor [place], [place] | | | | | | [address] | | | | | | [phone] | | | +--------+ + + + [...]
--- OUTSIDE RECORDS SUMMARY | ~2018-09-05 | XMS | Encounter Summary ---
Demographics + + + | Address | [address] | | | [place] [address] | + + + | Home Phone | | + + + | Preferred Language | Unknown | + + + | Marital Status | | + + + | Adventism Affiliation | ASG | + + + | Race | White | + + + | Ethnic Group | Not or | + + + Author + + + | Author | [facility] | + + + | Organization | [facility] | + + + | Address | Unknown | + + + | Phone | Unavailable | + + + Support + + + + + | Name | Relationship | Address | Phone | + + + + + | Christy Flaherty | ECON | [address] | | | | | [place] | | | | | [address] | | + + + + + Care Team Providers + +------+ + | Care Solution Architect Name | Role | Phone | + +------+ + | Filippo Chen DO | PCP | | + +------+ + Reason for Visit + + + | Reason | Comments | + + + | Medical Records | | | Review | | + + + Encounter Details +--------+ + + + + | Date | Type | Department | Care Team | Description | +--------+ + + + + | 02/22/ | Documentati | Endoscopic | Lab, Gi Procedure | Medical Records | | 2017 | on | Procedural Unit at | | Review | | | | [facility] [address] | | | | | [address] | | | | | | Road Mailcode: | | | | | | [address] [place] | | | | | | [address] | | | | | | [place], [place] | | | | | | [address] | | | | | | [phone] | | | +--------+ + + + [...]
--- OUTSIDE RECORDS SUMMARY | ~2018-09-05 | XMS | Encounter Summary ---
Demographics + + + | Address | [address] | | | [place] [address] | + + + | Home Phone | | + + + | Preferred Language | Unknown | + + + | Marital Status | | + + + | Adventist Affiliation | ASG | + + + [...] [place] | | | | | [address] | | + + + + + Care Team Providers + +------+ + | Care Watch And Clock Repairer Name | Role | Phone | + +------+ + | Filippo Cehn DO | PCP | | + +------+ + Reason for Referral PROC - Dept/Practice Procedure (Urgent) +--------+--------+ + + + + | Status | Reason | Specialty | Diagnoses / | Referred By | Referred To | | | | | Procedures | Contact | Contact | +--------+--------+ + + + + | Closed | | Gastroenterol | Diagnoses | Jarek | Gas Endo | | | | ogy | Idiopathic | MD Taiwo | Mpv [address] | | | | | chronic | [address] | [address] | | | | | pancreatitis | [facility] | [address] | | | | | ([facility]) | Rd | Mailcode: | | | | | Procedures | [place], [place] | [address] | | | | | CONSULT TO | [address] | [place] | | | | | GI PROCEDURE | Phone: | [address] | | | | | UNIT: EUS | [phone] | [place], | | | | | LIMITED [place] | Fax: | [place] [address] | | | | | ANESTH UPPER | [phone] | Phone: | | | | | GI | | [phone] | | | | | ENDOSCOPIC | | Fax: | | | | | VISUALIZE | | [phone] | | | | | PA UPPR GI | | | | | | | ENDO W FN | | | | | | | BX, US EXAM | | | +--------+--------+ + + + + Reason for Visit + + + | Reason | Comments | + + + | New patient | | | consultation | | + + + Consultation (Urgent) +--------+--------+ + + + + | Status | Reason | Specialty | Diagnoses / | Referred By | Referred To | | | | | Procedures | Contact | Contact | +--------+--------+ + + + + | Closed | | Gastroenterol | Diagnoses | Enestvedt, | Gas Faculty | | | | ogy | Pancreatic | Paras K, | [facility] [address] | | | | | mass | MD [address] | | | | | Epigastric | [address] | Mailcode: | | | | | pain | [address] | Center for | | | | | Elevated | [place], [place] | Health and | | | | | lipase | [address] | Healing, | | | | | Procedures | Phone: | Building 2 | | | | | CONSULT TO | [phone] | [facility] [place] | | | | | GASTROENTERO | Fax: | [address] | | | | | LOGY | [phone] | Phone: | | | | | | | [phone] | | | | | | | Fax: | | | | | | | [phone] | +--------+--------+ + + + + Encounter Details +--------+---------+ + + + | Date | Type | Department | Care Team | Description | +--------+---------+ + + + | 03/11/ | Office | Digestive Health | Taiwo Tilley, | Idiopathic chronic | | 2017 | Visit | Center at [facility] [address] | [address] | pancreatitis (HCC) | | | | [address] | [address] | (Primary Dx) | | | | Mailcode: Center | [place], [place] | | | | | [facility] and | [address] | | | | | [facility] 2 | [phone] | | | | | [place], [place] | | | | | | [address] | | | | | | [phone] | | | +--------+---------+ + + + [...] + + + | Blood Pressure | 125/80 | 03/11/2017 1:43 PM | | | | | PST | | + + + + + | Pulse | 65 | 03/11/2017 1:43 PM | | | | | PST | | + + + + + | Temperature | 36.3 C (97.4 F) | 03/11/2017 1:43 PM | | | | | PST [...] + + + + | Weight | 107.3 kg (236 lb 8 | 03/11/2017 1:43 PM | | | | oz) | PST | | + + + + + | Height | 177.8 cm (5' 10") | 03/11/2017 1:43 PM | | | | | PST | | + + + + + | Body Mass Index | 33.93 | 03/11/2017 1:43 PM | | | | | PST | | + + + + + documented in this encounter Progress Notes Taiwo Tilley MD - 03/11/2017 12:50 PM PSTFormatting of this note might be different fro m the original. [facility] Name: Daysi Flaherty MR#: [id number] : 1965 This is a 51 y/o male with history of 6 months of epigastric abdominal pain. About a year ago he noted episodic mild abdominal discomfort. About 6 months this became mo re frequent and severe episodes of epigastric pain radiating to the back. He also has had no ramsey nausea, occasional vomiting and 30 lbs weight loss in the last one years. [facility]. On one or two occasion he was noted to have mildly elevated lipase (<2 ULN). Had an abdominal US which was suggestive of mass in the HOP, but two subsequent CT scans showed no obvious mass, but stranding and inflammation around the pancreas. He also has sever constipation with rectal pain and bleeding. He had a colonoscopy 2 years ago. He has been on Linzess for 6 week with no resolution. He has Benton 1 stools. He is non-smoker (ex-smoker) and non-drinker. In 2012 he was diagnosed with rheumatic fever with symptoms of palpitation, fevers, joint p ain. He was treated with ATBx for 6 weeks of Rocephin. He has no prior history of pancreatitis. He has has been on Linzess for [address] arted on MTX 1 1/2 years ago for psoriatic arthritis, which was stopped 9 months ago due to lack of efficacy. Her sister was diagnosed with DM at age 30. No family history of autoimmune disease. Histor y of GB disease in her mom. Past Medical History: Diagnosis Date Epilepsy (HCC) Headache Sleep apnea SOB (shortness of breath) No past surgical history on file. Current Outpatient Prescriptions Medication Sig acetaminophen 325 mg oral tablet Take 325 mg by mouth every four hours as needed (pain) . aspirin 325 mg oral tablet Take 325 mg by mouth once daily. divalproex DR 500 mg oral tablet,delayed release (DR/EC) Take 2 tablets by mouth two ti mes daily. ERGOCALCIFEROL, VITAMIN D2, (VITAMIN D ORAL) Take 50,000 Units by mouth every seven day s. Takes every Wednesday folic acid 1 mg oral tablet Take 1 mg by mouth once daily. HYDROcodone-acetaminophen 10-325 mg oral tablet Take 1 tablet by mouth every six hours as needed (arthritis pain, tooth ache). lamoTRIgine 100 mg oral tablet Take 1 tablet by mouth two times daily. lamoTRIgine 25 mg oral tablet 25 mg every other day for two weeks Indications: COMPLEX -PARTIAL EPILEPSY lidocaine viscous 2 % mucous membrane solution 15 mL swish and spit no more often than every 3 hours as needed; maximum 8 doses in a 24-hour period linaclotide (LINZESS) 145 mcg oral capsule Take 145 mcg by mouth once daily. methotrexate 2.5 mg oral tablet Take 10 mg by mouth every seven days. Takes every day Indications: PSORIATIC ARTHRITIS mometasone 0.1 % topical cream Apply 1 applicator to affected area once daily. Apply a thin film to ears daily (indication: psoriasis) penicillin v potassium 500 mg oral tablet Take 250 mg by mouth two times daily. Indicat ions: RHEUMATIC FEVER PREVENTION special mouthwash (Maalox/lidocaine/diphenhydrAMINE) oral suspension (compound) Take 10 mL by mouth four times daily as needed. No current facility-administered medications for this visit. Allergies Allergen Reactions Piroxicam Rash Pt mentions he developed a rash while on this medication. Resolved immediately upon disco ntinue. Meloxicam Diarrhea Bowel incontinence Ogydgsu-Hit-Mll Reductase Inhibitors Seizures Increased frequency of seizures, though pts mentions, pt had an infection during the time the pt was started on a statin and this may have been the cause also. Provider never t ried a statin again. Review of Systems Constitutional: Positive for malaise/fatigue and weight loss. Negative for chills and fever . Cardiovascular: Negative for chest pain and leg swelling. Gastrointestinal: Positive for abdominal pain, blood in stool, constipation, nausea and vom iting. Negative for diarrhea and heartburn. Musculoskeletal: Positive for back pain and joint pain. All other systems reviewed and are negative. Physical Exam Constitutional: He is oriented to person, place, and time and well-developed, well-nourishe d, and in no distress. No distress. HENT: Mouth/Throat: No oropharyngeal exudate. Eyes: Conjunctivae are normal. No scleral icterus. Neck: No JVD present. No tracheal deviation present. No thyromegaly present. Cardiovascular: Normal rate, regular rhythm and normal heart sounds. Pulmonary/Chest: Effort normal and breath sounds normal. No respiratory distress. He has no wheezes. Abdominal: Soft. Bowel sounds are normal. He exhibits no distension. There is tenderness (R LQ and LLQ). Neurological: He is alert and oriented to person, place, and time. Skin: Skin is warm and dry. Psychiatric: Mood, memory, affect and judgment normal. CT Abdomen (03/11/17) Since 01/18/17, stable to minimal improvement in mild peripancreatic inflammatory changes s uggestive of possible autoimmune pancreatitis versus resolving pancreatitis without evidence of focal mass lesion. Fatty liver. CT ABDOMEN (01/18/17): IMPRESSION: No obvious pancreatic mass identified. Trace peripancreatic stranding is suggestive of acut e edematous mild pancreatitis. No other pancreatic abnormality identified. A/P: Assessment: 1. Recurrent epigastric abdominal pain over six month with weight loss and CT changes sugge stive of pancreatitis. Needs to be evaluated for neoplastic and more importantly, causes of recurrent pancreatitis, such as Gall stone or autoimmune pancreatitis. 2. Severe constipation, not responding to Linzess. 3. Rectal bleeding. Outlet type and most likely related to #2. Colonoscopy unremarkable two years ago. Plan: 1. CBC, CMP, and Lipase 2. IgG subclass IV, JULIANN, and CA 19-9 3. Will schedule for EUS with low threshold to FNA the HOP to assess for neoplastic vs auto immune process. 4. Continue Linzess, add Miralax 17 gm PO bid. Husam Jefferson MD - 03/11/2017 12:50 PM PST documented in this encounter Plan of Treatment Not on filedocumented as of this encounter Visit Diagnoses + + | Diagnosis | + + | Idiopathic chronic pancreatitis (HCC) - Primary | + + documented in this encounter
--- OUTSIDE RECORDS SUMMARY | ~2018-09-05 | XMS | Encounter Summary ---
Demographics + + + | Address | [address] | | | [place] [address] | + + + | Home Phone | | + + + | Preferred Language | Unknown | + + + | Marital Status | | + + + | Buddhist Affiliation | ASG | + + + | Race | White | + + + | Ethnic Group | Not or | + + + Author + + + | Author | [facility] | + + + | Organization | [facility] | + + + | Address | Unknown | + + + | Phone | Unavailable | + + + Support + + + + + | Name | Relationship | Address | Phone | + + + + + | Christy Flaherty | ECON | [address] | | | | | [place] | | | | | [address] | | + + + + + Care Team Providers + +------+ + | Care Mortgage Loan Computation Clerk Name | Role | Phone | [...] Question | | 2016 | Encounter | [facility] & | [address] | | | | | Healing [address] | [place], [place] | | | | | [address] Mail Code: | [address] | | | | | [address] | [phone] | | | | | Health and Healing, | | | | | | 8th floor [place], | | | | | | [place] [address] | | | | | | [phone] | | | +--------+ + + + [...]
--- OUTSIDE RECORDS SUMMARY | ~2018-09-05 | XMS | Encounter Summary ---
Demographics + + + | Address | [address] | | | [place] [address] | + + + | Home Phone | | + + + | Preferred Language | Unknown | + + + | Marital Status | | + + + | Hindu Affiliation | ASG | + + + | Race | White | + + + | Ethnic Group | Not or | + + + Author + + + | Author | [facility] | + + + | Organization | [facility] | + + + | Address | Unknown | + + + | Phone | Unavailable | + + + Support + + + + + | Name | Relationship | Address | Phone | + + + + + | Christy Flaherty | ECON | [address] | | | | | [place] | | | | | [address] | | + + + + + Care Team Providers + +------+ + | Care Science Tutor Name | Role | Phone | + [...] + + + + | 04/09/ | Anesthesia | Endoscopic | Yanni Lim | | | 2018 | Event | Procedural Unit at | MD Anil [address] | | | | | [place] [address] | [address] | | | | | [address] | [place], [place] | | | | | Road Mailcode: | [address] | | | | | [address] | [phone] | | | | | [address] | | | | | | [place], [place] | | | | | | [address] | | | | | | [phone] | | | +--------+ + + + + Anesthesia Record + + + + + | Procedure Name | Responsible | Anesthesia Start | Anesthesia Stop Time | | | Anesthesiologist | Time | | + + + + + | EUS UPPER | Yannisona Lim, | 04/09/17 1304 | 04/09/17 1422 [...] | Meds | +------+ + + + | Name | Total | + + + | propofol INF | 650,260 mcg | + + + | midazolam | 2 mg | + + + | sodium chloride 0.9% IV infusion | 1,400 mL | + + + + + | Name | + + | O2 Flow Rate (Total Liters) | + + + + | No [...] Visit Diagnoses Not on filedocumented in this encounter Administered Medications + +--------+ +------+------+------+ | Medication Order | MAR | Action | Dose | Rate | Site | | | Action | Date | | | | + +--------+ +------+------+------+ | midazolam (VERSED) injection | Given | 04/09/19 | 2 mg | | | | INTRAPROCEDURE PRN, Starting Fri | | 18 1:04 | | | | | 04/09/17 at 1304, Until Fri | | PM PST | | | | | 04/09/17 at 1422 | | | | | | + +--------+ +------+------+------+ +---+---+ | | | +---+---+ + +---------+ + +--------+---+ | propofol (DIPRIVAN) injection | New Bag | 04/09/19 | 100 | 63.96 | | | INTRAPROCEDURE CONTINUOUS PRN, | | 18 1:08 | mcg/kg/m | mL/hr | | | Starting Wed04/09/17 at 1308, | | PM PST | in | | | | Until Wed04/09/17 at 1422 | | | | | | + +---------+ + +--------+---+ +---+---+ | | | +---+---+ + + + +---+---+---+ | sodium chloride 0.9% IV | given by | 04/09/19 | | | | | infusion 50 mL/hr, intravenous, | | 18 2:21 | | | | | CONTINUOUS, Starting Wed04/09/17 | anesthes | PM PST | | [...]
--- OUTSIDE RECORDS SUMMARY | ~2018-09-05 | XMS | Encounter Summary ---
Demographics + + + | Address | [address] | | | [place] [address] | + + + | Home Phone | | + + + | Preferred Language | Unknown | + + + | Marital Status | | + + + | Gnosticist Affiliation | ASG | + + + [...] [place] | | | | | [address] | | + + + + + Care Team Providers + +------+ + | Care Payroll And Benefits Analyst Name | Role | Phone | + +------+ + | Filippo Chen DO | PCP | | + +------+ + Reason for Visit + + + | Reason | Comments | + + + | Pre-Admission | [facility] | + + + | Epilepsy | advisory services associate; chart review and pre-admin assessment | + + + Encounter Details +--------+ + + + + | Date | Type | Department | Care Team | Description | +--------+ + + + + | 10/01/ | Telephone | Neurology at | [place], | Pre-Admission ([facility] | | 2016 | | [facility] & | [address] | ); Epilepsy (RN | | | | Healing [address] | [facility] | Navigator; chart | | | | [address]rera Mail Code: | [place], [place] | review and pre-admin | | | | [address] | [address] | assessment) | | | | Health and Healing, | | | | | | 8th [facility], | | | | | | [place] [address] | | | | | | [phone] | | | +--------+ + + + [...]
--- OUTSIDE RECORDS SUMMARY | ~2018-09-05 | XMS | Encounter Summary ---
Demographics + + + | Address | [address] | | | [place] [address] | + + + | Home Phone [...] [place] | | | | | [address] | | + + + + + Care Team Providers + +------+ + | Care Flight Test Shop Mechanic Name | Role | Phone | + +------+ + | Filippo Chen DO | PCP | | + +------+ + Reason for Visit + + + | Reason | Comments | + + + | Referral To Surgery | | | - General | | + + + Encounter Details +--------+ + + + + | Date | Type | Department | Care Team | Description | +--------+ + + + + | 02/17/ | Abstract | Digestive Health | Clinic, Surgery | Referral To Surgery | | 2017 | | [place] [facility] [address] | | - General | | | | [address] | | | | | | Mailcode: Center | | | | | | for Health and | | | | | | [facility] 2 | | | | | | [place], [place] | | | | | | [address] | | | | | | [phone] | | | +--------+ + + + [...]
--- OUTSIDE RECORDS SUMMARY | ~2018-09-05 | XMS | Encounter Summary ---
Demographics + + + | Address | [address] | | | [place] [address] | + + + | Home Phone | | + + + | Preferred Language | Unknown | + + + | Marital Status | | + + + | Quaker Affiliation | [phone] | + + + | Race | Unknown | + + + | Ethnic Group | Unknown | + + + Author + + + | Author | [facility] | + + + | Organization | [facility] | + + + | Address | Unknown | + + + | Phone | Unavailable | + + + Support + + + + + | Name | Relationship | Address | Phone | + + + + + | Christy Grande | ECON | [address] | | | | | [place] | | | | | [address] | | + + + + + Care Team Providers + +------+ + | Care Ventilator Specialist Name | Role | Phone | + +------+ + | Sky Quach MD | PCP | | + +------+ + Encounter Details +--------+ + + + + | Date | Type | Department | Care Team | Description | +--------+ + + + + | 08/03/ | Ancillary | [facility] | [place], | Aortic valve | | 2019 | Orders | JESS | [address] [facility] | insufficiency, | | | | | [address] | etiology of cardiac | | | | | [place] [address] | valve disease | | | | | [phone] | unspecified; Seizure | | | | | | (HCC) | +--------+ + + + + Social [...] | | | + +---+---+---+ + + +---------+ + | Alcohol Use [...] + + | 10/13/ | Office | Cardiology | Jb Mendiola, | | | 2019 | Visit | | MD [address] | | | | | | [place] [address] | | | | | | [phone] | | | | | | | | +--------+---------+ + + + as of this encounter Results ECHO outside interpretation standard (08/03/2018 5:34 PM) + + + | Impressions | Performed At | + + + | 1. This was a technically difficult study with suboptimal views. 2. | [facility] | | Overall left ventricular systolic function is low-normal with an EF | RADIOLOGY | | between 50 - 55 %. 3. The right ventricle is normal in size and | | | function. 4. There is ovby-mj-qrnmzgpl aortic regurgitation. 5. In | | | comparison to the previous echocardiographic study, done 07/20/16, only | | | minor changes are noted, as reported below. | | + + + + + + | Narrative | Performed At | + + + | Patient Name: DAYSI GRANDE Date of : 1965 | [facility] | | Performing Physician: Sarthak Lucia | [...] function. 4. There | | | is bnjf-pn-eainixen aortic regurgitation. 5. In comparison to the [...] Aortic Valve: There is | | | pqhn-kt-wwqiqghn aortic regurgitation, decreased from moderate AI on [...] MV A George: 0.45 m/s MV Dec [place]: 2.84 m/s2 | | | MV DecT: [...] RV | | | s': 0.09 m/s Admissions Director: COURT Authenticated by: Sarthak Busby | | | Khari Report Date/Time: 08-03-2018 19:45:5 | | + + + + + | Procedure Note | + + | Kj, Rad Results In - 08/03/2018 7:50 PM PDT Patient Name: Jen GRANDE of | | : 1965Accession: [id number] Physician: Sarthak Busby | | [facility] INDICATIONS | | -HX OF AORTIC INSUFFICIENCY, ENDOCARDITIS, POST OP GALLBLADDERCONCLUSIONS 1. | | This was a technically difficult study with suboptimal views.2. Overall left ventricular | | systolic function is low-normal with an EF between 50 - 55 %.3. The right ventricle is | | normal in size and function.4. There is kjjz-rx-lueslkko aortic regurgitation. 5. In | | comparison [...] a previous KRAIG. Aortic Valve: There is gkdz-mt-vljfloko | | aortic regurgitation, decreased from moderate [...] | 5.55 cmLVPWd: 0.78 cmLVOT Area: 3.90 oj2JRFY Diam: 2.22 cm%FS: 21.16 %EF(Teich): | | 42.51 %ESV(Teich): 86.63 mlLVIDs: 4.37 cmSV(Teich): 64.06 mlRV Major: 8.82 | | cmRV Minor: 3.15 cmLVEF MOD A4C: 57.64 %SV MOD A4C: 113.24 mlLVEDV MOD A4C: | | 196.46 mlLVLd A4C: 9.01 cmLVESV MOD A4C: 83.21 mlLVLs A4C: 8.29 cmLAESV(A-L): | | 48.21 mlLAESV Index (A-L): 20.96 ml/m2LAAs A2C: 16.67 cl8ZDUSG A-L A2C: 52.96 | | mlLALs A2C: 4.45 cmLAAs A4C: 15.18 fe8FTCGA A-L A4C: 41.97 mlLALs A4C: 4.66 | | cmRAAs: 11.25 hm0YBNSI A-L: 24.67 mlRAESV MOD: 24.34 mlRALs: 4.35 cmTAPSE: | | 2.25 cmAV maxP.73 mmHgAV meanP.49 mmHgAV Vmax: 1.78 m/Stormy Vmean: 1.19 | | m/Stormy VTI: 38.51 cmAVA Vmax: 1.78 cm2AVA (VTI): 2.07 ow0CBUN (Vmax): 0.00 | | cm2/m2AVAI (VTI): 0.00 cm2/m2LVOT maxP.67 mmHgLVOT meanP.41 mmHgLVSI Dopp: | | 34.67 ml/m2LVSV Dopp: 79.74 mlLVOT Vmax: 0.81 m/sLVOT Vmean: 0.56 m/sLVOT VTI: | | 20.44 cmMV A George: 0.45 m/sMV Dec [place]: 2.84 m/s2MV DecT: 216.66 msMV E George: | | 0.61 m/sMV E/A Ratio: 1.36 MV PHT: 62.83 msMVA By PHT: 3.50 ey0Vbhscl e': 0.06 | | m/sSeptal E/e': 8.91 [...] size and function.4. | | There is mqjf-fo-tmlgukiv aortic regurgitation. 5. In comparison to the [...] A George: 0.45 m/s | |MV Dec [place]: 2.84 m/s2 | |MV DecT: 216.66 ms | |MV E Geogre: 0.61 m/s | |MV E/A Ratio: 1.36 | |MV PHT: 62.83 ms | |MVA By PHT: 3.50 cm2 | |Septal e': 0.06 m/s | |Septal E/e': 8.91 | |Lateral e': 0.08 m/s | |Lateral E/e': 7.04 | |TR maxP.53 mmHg | |TR Vmax: 1.77 m/s | |RV s': 0.09 m/s | | | |Admissions Director: DBS | |Authenticated by: Sarthak Lucia | |Report Date/Time: 08-03-2018 19:45:5 | | | |IMPRESSION: | |1. This was a technically difficult study with suboptimal views. | |2. Overall left ventricular systolic function is low-normal with an EF between 50 - 55 %. | |3. The right ventricle is normal in size and function. | |4. There is icfr-eq-xulltsit aortic regurgitation. 5. In comparison to the previous echocar diographic study, done 07/20/16, only minor changes are noted, as reported below. | + + + + + + + | Performing | Address | City/State/Zipcode | Phone Number | | Organization | | | | + + + + + | [facility] | [address] | [place] [address] | | + + + + + in this encounter Visit Diagnoses + + | Diagnosis | + + | Aortic valve insufficiency, etiology of cardiac valve disease unspecified | + + | Seizure (HCC) | + + | Other convulsions | + +"
--- OUTSIDE RECORDS SUMMARY | ~2018-09-05 | XMS | Encounter Summary ---
Demographics + + + | Address | [address] | | | [place] [address] | + + + | Home Phone | | + + + | Preferred Language | Unknown | + + + | Marital Status | | + + + | Amish Affiliation | ASG | + + + | Race | White | + + + | Ethnic Group | Not or | + + + Author + + + | Author | [facility] | + + + | Organization | [facility] | + + + | Address | Unknown | + + + | Phone | Unavailable | + + + Support + + + + + | Name | Relationship | Address | Phone | + + + + + | Christy Flaherty | ECON | [address] | | | | | [place] | | | | | [address] | | + + + + + Care Team Providers + +------+ + | Care Hoof Trimmer Name | Role | Phone | + +------+ + | Filippo Chen DO | PCP | | + +------+ + Encounter Details +--------+ + + + + | Date | Type | Department | Care Team | Description | +--------+ + + + + | 04/27/ | Documentati | LAB CORE [address] | Taiwo Tilley, | | | 2018 | on | [address] | [address] | | | | | [address] [place], [place] | [address] | | | | | [address] | [place], [place] | | | | | [phone] | [address] | | | | | | [phone] | | | | | | | [...]
--- OUTSIDE RECORDS SUMMARY | ~2018-09-05 | XMS | Encounter Summary ---
Demographics + + + | Address | [address] | | | [place] [address] | + + + | Home Phone | | + + + | Preferred Language | Unknown | + + + | Marital Status | | + + + | Hoahaoism Affiliation | ASG | + + + [...] [place] | | | | | [address] | | + + + + + Care Team Providers + +------+ + | [facility] Agent Name | Role | Phone | + +------+ + | Filippo Chen DO | PCP | | + +------+ + Encounter Details +--------+ + + + + | Date | Type | Department | Care Team | Description | +--------+ + + + + | 02/26/ | Procedure | Radiology/Imaging | | | | 2017 | Pass | Lab at [facility] [address] | | | | | | [address] | | | | | | Mailcode: [facility] | | | | | | [facility] | | | | | | and Healing, 3rd | | | | | | Floor [place], [place] | | | | | | [address] | | | | | | [phone] | | | +--------+ + + + [...]
--- OUTSIDE RECORDS SUMMARY | ~2018-09-05 | XMS | Encounter Summary ---
Demographics + + + | Address | [address] | | | [place] [address] | + + + | Home Phone [...] + + + | Author | [facility] | + + + | Organization | [facility] | + + + [...] [place] | | | | | [address] | | + + + + + Care Team Providers + +------+ + | Care Military Analyst Name | Role | Phone | + +------+ + | Filippo Chen DO | PCP | | + +------+ + Encounter Details +--------+ + + + + | Date | Type | Department | Care Team | Description | +--------+ + + + + | 12/16/ | Documentati | Neurology at | Amador Mayorga N, | | | 2016 | on | [facility] & | ASSEMBLY INSPECTOR [address] | | | | | Healing [address] | | | | | [place]rera Mail Code: | [place], [place] | | | | | [facility] | [address] | | | | | Health and Healing, | [phone] | | | | | [address] [place] [address], | | | | | | [place] [address] | | | | | | [phone] | | | +--------+ + + + [...]
--- OUTSIDE RECORDS SUMMARY | ~2018-09-05 | XMS | Encounter Summary ---
Demographics + + + | Address | [address] | | | [place] [address] | + + + | Home Phone | | + + + | Preferred Language | Unknown | + + + | Marital Status | | + + + | Yarsanism Affiliation | ASG | + + + | Race | White | + + + | Ethnic Group | Not or | + + + Author + + + | Author | [facility] | + + + | Organization | [facility] | + + + | Address | Unknown | + + + | Phone | Unavailable | + + + Support + + + + + | Name | Relationship | Address | Phone | + + + + + | Christy Flaherty | ECON | [address] | | | | | [place] | | | | | [address] | | + + + + + Care Team Providers + +------+ + | Care Grades 7 8 Tutor Name | Role | Phone | + +------+ + | Filippo Chen DO | PCP | | + +------+ + Encounter Details +--------+ + + + + | Date | Type | Department | Care Team | Description | +--------+ + + + + | 04/26/ | Telephone | Digestive Health | Taiwo Tilley, | | | 2017 | | [place] [facility] [address] | [address] | | | | | [address] | [address] | | | | | Mailcode: Center | [place], [place] | | | | | for Health and | [address] | | | | | [facility] 2 | [phone] | | | | | [place], [place] | | | | | | [address] | | | | | | [phone] | | | +--------+ + + + [...]
--- OUTSIDE RECORDS SUMMARY | ~2018-09-05 | XMS | Encounter Summary ---
Demographics + + + | Address | [address] | | | [place] [address] | + + + | Home Phone [...] + + + | Author | [facility] | + + + | Organization | [facility] | + + + | Address | Unknown | + + + | Phone | Unavailable | + + + Support + + + + + | Name | Relationship | Address | Phone | + + + + + | Christy Flaherty | ECON | [address] | | | | | [place] | | | | | [address] | | + + + + + Care Team Providers + +------+ + | Care Agent Contract Clerk Name | Role | Phone | [...] changes | | 2016 | Encounter | [facility] & | | | | | | Healing [address] | | | | | | [place] Mail Code: | | | | | | [facility] | | | | | | Health and Healing, | | | | | | [address]th [facility], | | | | | | [place] [address] | | | | | | [phone] | | | +--------+ + + + [...]
--- OUTSIDE RECORDS SUMMARY | ~2018-09-05 | XMS | Encounter Summary ---
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 [facility] Note Author: Noe Arambula MD Date/Time: 09/05/2015 2:55 PM Requesting Attending: Sylvia Triana MD HPI: Daysi Flaherty is a 50 year old right-handed man who is being seen in [facility] for evaluation of surgical [...] took him t o the hospital in [place]. They did an MRI which was initially [...] referred to his neurologist Dr. Estrada in [place]. He reviewed the MRI and saw a [...] in September 2014 an ID specialist in [facility] determined khadijah t he had Rheumatic fever [...] November 2014. Prior Evaluation: EEG from the [facility] in 2014 was normal. MRI from [facility] in 2014 showed [...] drugs Living situation: Lives with his in [place], [place] Marital Status: Education: Some college Work: [...] to light touch. Coordination and Gait: Normal ezdxlp-qjyl-vdxhbh and wgol-gd-fmrl intact. Labs: Lab Results Component Value Date [...] right-handed man who is being seen in [facility] for evaluation of surgical evaluation [...] signed on 09/05/2015 by Noe Arambula MD. Crumb Packer Department of Neurology [facility] documented in this en [...] [facility] | [address] | [place] [address] | | | SERVICES, CORE | PARK [...] | | | LABORATORY | | | [facility] | | | SERVICES, | | | [...] | + + + + + | [facility] [employer] | [address] | [place] [address] | | | SERVICES, CORE | JEROME [...]
--- OUTSIDE RECORDS SUMMARY | ~2018-09-05 | XMS | Encounter Summary ---
Demographics + + + | Address | [address] | | | [place] [address] | + + + | Home Phone | | + + + | Preferred Language | Unknown | + + + | Marital Status | | + + + | Zoroastrianism Affiliation | ASG | + + + | Race | White | + + + | Ethnic Group | Not or | + + + Author + + + | Author | [facility] | + + + | Organization | [facility] | + + + | Address | Unknown | + + + | Phone | Unavailable | + + + Support + + + + + | Name | Relationship | Address | Phone | + + + + + | Christy Flaherty | ECON | [address] | | | | | [place] | | | | | [address] | | + + + + + Care Team Providers + +------+ + | Care Freelance Recruiter Name | Role | Phone | + +------+ + | Filippo Chen DO | PCP | | + +------+ + Encounter Details +--------+ + + + + | Date | Type | Department | Care Team | Description | +--------+ + + + + | 02/24/ | Outside | Endoscopic | Filippo Chen DO | | | 2017 | Referral | Procedural Unit at | [address] | | | | Order | [place] [address] | [place] | | | | | [address] [facility] | [address] | [address] | | | [address] Mailcode: | | | | | | [address] | | | | | | [address] | | | | | | [place], [place] | | | | | | [address] | | | | | | [phone] | | | +--------+ + + + [...]
--- OUTSIDE RECORDS SUMMARY | ~2018-09-05 | XMS | Encounter Summary ---
Demographics + + + | Address | [address] | | | [place] [address] | + + + | Home Phone | | + + + | Preferred Language | Unknown | + + + | Marital Status | | + + + | Taoist Affiliation | ASG | + + + | Race | White | + + + | Ethnic Group | Not or | + + + Author + + + | Author | [facility] | + + + | Organization | [facility] | + + + | Address | Unknown | + + + | Phone | Unavailable | + + + Support + + + + + | Name | Relationship | Address | Phone | + + + + + | Christy Flaherty | ECON | [address] | | | | | [place] | | | | | [address] | | + + + + + Care Team Providers + +------+ + | Care Fabrication Machine Operator Name | Role | Phone [...] + + | 04/09/ | Hospital | [place] [address] | Taiwo Tilley, | | | 2018 - | Encounter | [address] | [facility] [address] | | | | | [facility] | [facility] | | | 04/10/ | | HOSPITAL [place], | [place], [place] | | | 2017 | | [place] [address] | [address] | | | | | [phone] | [phone] | | | | | | | | | | | | Laurence Barboza MD | | | | | | [address] | | | | | | [facility] [address] | | | | | | [place], [place] | | | | | | [address] | | | | | | [phone] | | | | | | | | | | | | Amado Roger, | | | | | | [address] | | | | | | [address] | | | | | | [place], [place] | | | | | | [address] | | | | | | [phone] | | | | | | | [...] Roger MD - 04/10/2017 7:24 AM PST [facility] Discharge Summary Discharging Provider: Amado Roger MD Discharging Attending Physician: Amado Roger MD PCP: Filippo Chen DO Admission Date: 04/09/2017 Discharge Date: 04/10/17 Hospital Stay: 1 day(s) Reason for Admission: 51 yo man with hx of obesity, seizures, VIKTORIA on BiPAP who has had 6 months of abdominal pain , weight loss (30 lbs), dysphagia/sore throat who was referred to [facility] for ERCP and under went EUS [...] upon disco ntinue. Meloxicam Diarrhea Bowel incontinence Ljulpud-Wzu-How Reductase Inhibitors Seizures Increased frequency of seizures, [...] focal neuro deficits Amado Roger MD, MSc Order Exped[employer] tech Clinical Hospitalist and Medicine Teaching Services [facility] Pager: [phone] documented in this encounter Discharge Instructions Instructions [...] hours or on weekends and holiday [facility] toll free ext. [phone] and have the GI doctor acetone button paster paged. The provider who performed your procedure: [...] pain. | | | | | | Pain [...] + +--------+ + + + | NON WOODS LABORER CYTOLOGY | Routin | 04/09/2017 | | [...] + | MRN: | [facility] | | [id number] Date: 04/09/2017Patient Name: Daysi Cook #: | ENDOSCOPY | | [id number] of : 1965CSN: [id number] Type: | | | AmbulatoryRoom: GI 3Procedure: Upper | | | EUSIndications: Abnormal ultrasound of the | | | abdomenProviders: TAIWO TILLEY MD (Doctor), | | | LUIS A MAYES RN (Nurse), | | | JYOTI RODRIGUEZ Consultant Rn (Consultant Rn)Referring | | | MD: TAIWO TILLEY MDRequesting Provider: | | | Medicines: Monitored Anesthesia | | | CareComplications: No immediate | | | complications.Procedure: Pre-Anesthesia | | | Assessment: - Pre-procedure | | | physical examination revealed no | | | contraindications to | | | sedation. - Airway | | | Examination: Mallampati Class III (part of the | | | uvula and soft palate | | | visualized). - ASA Grade | | | Assessment: II - A patient with mild | | | systemic | | | disease. - After reviewing the | | | risks and benefits, the patient | | | was deemed in satisfactory | | | condition to undergo the | | | procedure. - The anesthesia | | | plan was to use monitored anesthesia | | | care | | | (MAC). - Immediately prior to | | | administration of medications, | | | the patient was re-assessed | | | for adequacy to receive | | | sedatives. Prior to the | | | procedure, a History and Physical with | | | airway assessment was | | | performed (see patient record), | | | and patient medications and | | | allergies were reviewed. The | | | risks and benefits of the procedure and the sedation | | | options and risks were | | | discussed. All questions were | | | answered and informed consent was obtained. After | | | reviewing the risks and | | | benefits, the patient was deemed | | | in satisfactory condition to | | | undergo the procedure. | | | Immediately prior to administration of medications, the | | | patient was re-assessed for | | | adequacy to receive | | | sedatives. The heart rate, respiratory rate, oxygen | | | saturations, blood pressure, | | | adequacy of pulmonary | | | ventilation, and response to care were monitored | | | throughout the procedure. The | | | physical status of the | | | patient was re-assessed after the | | | procedure. The Olympus | | | [id number] AL5 Linear Echoendoscope #[id number] | | | was introduced through the | | | mouth, and advanced to the | | | second part of duodenum. The Olympus [id number] Endoscope | | | #[id number] was introduced | | | through the mouth, and advanced | | | to the second part of | | | duodenum. The upper EUS was | | | accomplished without difficulty. The patient tolerated | | | the procedure well.Estimated | | | Blood Loss: Estimated blood loss was minimal.Findings: | | | Endoscopic Finding : The examined esophagus was | | | endoscopically normal. Patchy mild inflammation characterized | | | by erythema was found in the gastric body and in the gastric | | | antrum. Biopsies were taken with a cold forceps for | | | histology. The examined duodenum was endoscopically | | | normal. Endosonographic Finding : There was no sign of | | | significant endosonographic abnormality in the common bile | | | duct. The maximum diameter of the duct was 3 mm in the head | | | of the pancreas. No stones, no biliary sludge and ducts of normal | | | caliber were identified. Pancreatic parenchymal | | | abnormalities were noted in the pancreatic head, in the genu | | | of the pancreas, in the pancreatic body and in the pancreatic | | | tail. These consisted of atrophy, hyperechoic strands and | | | lobularity. An area of more pronounced parenchymal changes vs | | | round mass was identified in the pancreatic head. The | | | area/mass was hypoechoic. The area/mass measured 23 mm by 24 | | | mm in maximal cross-sectional diameter. The outer margins | | | were irregular. Fine needle aspiration for cytology was | | | performed. Color Doppler imaging was utilized prior to needle | | | puncture to confirm a lack of significant vascular structures within | | | the needle path. Seven passes were made with the 25 gauge | | | needle using a transduodenal approach. A stylet was used. A | | | freelance operator was present and performed a preliminary cytologic | | | examination. Preliminary cytology is suggestive of benign | | | inflammatory changes (final results are pending). Two enlarged | | | lymph nodes were visualized in the peripancreatic region. | | | The largest measured 9 mm by 6 mm in maximal cross-sectional diameter. | | | The nodes were triangular, hypoechoic and had well defined | | | margins. There was no sign of significant endosonographic | | | abnormality in the ampulla.Impression: - | | | Gastritis. Biopsied. - | | | Pancreatic parenchymal abnormalities consisting of | | | atrophy, hyperechoic strands | | | and lobularity were noted in | | | the entire pancreas. These changes were concenring | | | for chronic | | | pancreatitis. - An area of | | | more pronounced parenchymal changes vs mass | | | was identified in the | | | pancreatic head. Fine needle | | | aspiration performed. - Two | | | enlarged lymph nodes were visualized in the | | | peripancreatic region. Tissue | | | has not been obtained. | | | However, the endosonographic appearance is consistent | | | with benign inflammatory | | | changes.Recommendation: - Discharge patient to home | | | (ambulatory). - Await cytology | | | results and await path | | | results. - The findings and | | | recommendations were discussed with | | | the patient and their | | | spouse.Attending Participation: I personally performed the | | | entire procedure.MELLISSA Blackburn MD04/09/2017 3:29:43 | | | PMThis report has been signed electronically.Number of Addenda: 0Note | | | Initiated On: 04/09/2017 1:07 [facility] Letter to: FILIPPO CHEN, | | | DO | | + + + + +---------+ + + | Performing | Address | City/State[facility] | Phone Number | | Organization | | | | + +---------+ + + | [facility] | | | | + +---------+ + + NON WOODS LABORER CYTOLOGY (04/09/2017) + + + + + + | Component | Value | Ref Range | Performed | Pathologist | | | | | At | Signature | + + + + + + | NON-WOODS LABORER | SOURCE OF SPECIMEN:A | | [facility] | | | CYTOLOGY | Head of Pancreas FNA, | | DEPARTMENT | | | | Done by clinician with | | OF | | | | adequacyassessmentGROSS | | PATHOLOGY | | | | DESCRIPTION:CLINICAL | | | | | | HISTORY: | | | | | | Clinical History:51 yo | | | | | | male, h/o epigastric | | | | | | abdominal pain; | | | | | | suspected chronic | | | | | [...] | | | | | cell block | | | | | | preparation. | | | | | | Final Cytologic | | | | | | Diagnosis:A. Head of | | | | | | pancreas, EUSg FNA | | | | | | (x7): | | | | | | - Negative for | | | | | | malignancy- Pleas | | | | | | e see comment | | | | | | Immediate | | | | | | Impression:nfm(ed,ds) | | | | | | Case reviewed | | | | | | by:Anthony Soares, | | | | | | MD/Staff | | | | | | Pathologist | | | | | | [...] | | | | There is no | | | | | | malignancy. My | | | | | | electronic signature | | | | | | indicates that I have | | | | | | personally reviewed | | | | | | alldiagnostic slides, | | | | | | the gross and/or | | | | | | microscopic portion of | | | | | | thisreport and | | | | | | formulated the final | | | | | | diagnosis. | | | | | | Electronically signed | | | | | | by: Anthony Soares | | | | | | M.MarioPathologistDate | | | | | | Completed: | | | | | | 04/13/2017 5:27PM | | | | + + [...] | + + + + + | [facility] | [address] | [place] [address] | | | PATHOLOGY | [address] [...] | | | | | | chronic | | | | | | gastritis- Negati | | | | | | ve for H. pylori-like | | | | | | organisms by H&E | | | | | | Case reviewed by:Scott | | | | | | MD Mason/Pathology | | | | | | Sadie Rios, | | | | | | , | | | | | | PhD/Pathologist | | | | | | [...] medicalrecord | | | | | | #[id number]. A. | | | | | | [...] | | | | | cassettes A1 | | | | | | CW My electronic | | | | | | signature indicates | | | | | | that I have personally | | | | [...] | | | | by: Paulo Rios | | | | | | M.D., | | | | | | Ph.DPathologistDate | | | | | | Completed: | | | | | | 04/14/2017 7:41PM | | | | + + + + + + + + | Specimen | + + | Tissue | + + + + + | Narrative | Performed At | + + + | | | + + + + + + + + | Performing | Address | City/State/Zipcode | Phone Number | | Organization | | | | + + + + + | [facility] | [address] | [place] [address] | | | PATHOLOGY | [address] [...]
--- OUTSIDE RECORDS SUMMARY | ~2018-09-05 | XMS | Encounter Summary ---
Demographics + + + | Address | [address] | | | [place] [address] | + + + | Home Phone | | + + + | Preferred Language | Unknown | + + + | Marital Status | | + + + | Catholic Affiliation | ASG | + + + | Race | White | + + + | Ethnic Group | Not or | + + + Author + + + | Author | [facility] | + + + | Organization | [facility] | + + + | Address | Unknown | + + + | Phone | Unavailable | + + + Support + + + + + | Name | Relationship | Address | Phone | + + + + + | Christy Flaherty | ECON | [address] | | | | | [place] | | | | | [address] | | + + + + + Care Team Providers + +------+ + | Care Supervisor Communications And Signals Name | Role | Phone | + [...] | Pancreatic | Paras Jorge, | [facility] | | | | | mass | MD [address] | [address] | | | | | Procedures | [address] | Mailcode: | | | | | CT ABDOMEN | Jayshree Santillan | [facility] | | | | | WWO IV | [place], [place] | for Health | | | | | [place] | [address] | and Healing, | | | | | CT SCAN OF | Phone: | 3rd Floor | | | | | ABDOMEN | [phone] | [facility] [place] | | | | | COMBO | Fax: | [address] | | | | | | [phone] | Phone: | | | | | | | [phone] | | | | | | | Fax: | | | | | | | [phone] | +--------+--------+ + + + + Diagnostic [...] | mass | MD [address] | [address]rera | | | | | Procedures | [address] | Mailcode: | | | | | CT ABDOMEN | [address] | [facility] | | | | | WWO IV | [place], [place] | for Health | | | | | [place] | [address] | and Healing, | | | | | CT SCAN OF | Phone: | 3rd Floor | | | | | ABDOMEN | [phone] | [place], [place] | | | | | COMBO | Fax: | [address] | | | | | | [phone] | Phone: | | | | | | | [phone] | | | | | | | Fax: | | | | | | | [phone] | +--------+--------+ + + + + Reason [...] | mass | MD [address] | [address] | | | | | Procedures | Eli[address] | Mailcode: | | | | | CT ABDOMEN | [address] | [facility] | | | | | WWO IV | [place], [place] | for Health | | | | | [place] | [address] | and Healing, | | | | | CT SCAN OF | Phone: | 3rd Floor | | | | | ABDOMEN | [phone] | [place], [place] | | | | | COMBO | Fax: | [phone] | | | | | | [phone] | Phone: | | | | | | | [phone] | | | | | | | Fax: | | | | | | | [phone] | +--------+--------+ + + + + Encounter Details +--------+ + + + + | Date | Type | Department | Care Team | Description | +--------+ + + + + | 03/11/ | Hospital | Radiology/Imaging | Paras Baker | | | 2017 | Encounter | Lab at [facility] | MD Ania [address] | | | | | [address] | [facility] | | | | | Mailcode: CH3G | [facility] [place] | | | | | [facility] | [address] | | | | | and [facility] | [phone] | | | | | Floor [place], [place] | | | | | | [address] | | | | | | [phone] | | | +--------+ + + + [...] | | | | | | release (/AILEEN) | | | | | | + [...] liquid | 1700 g | 1 | 12/14/20 | | | glycol (MIRALAX) 17 | [...] +--------+ + + + | CT ABDOMEN WWO IV | Routin | 03/11/2017 | Pancreatic mass | Results for this | | CONTRAST | e | 11:16 AM | | procedure are in the | | | | PST | | results section. | + +--------+ + + + documented in this encounter Results CT ABDOMEN WWO IV CONTRAST (03/11/2017 11:16 AM PST) + + | Specimen | + + | | + + + + + | Narrative | Performed At | + + + | EXAM: Liver protocol CT of the abdomen with and without | [facility] | | contrast. HISTORY: Pancreatitis COMPARISON: 01/18/17 | RADIOLOGY VOICE | | TECHNIQUE: Unenhanced, arterial, portal venous and 4-minute delayed | RECOGNITION | | abdominal CT with 125mL Omnipaque 350 non-ionic intravenous contrast. | | | Coronal and sagittal reformats were reviewed. FINDINGS: LOWER | | | THORAX: Unremarkable. LIVER: Diffuse fatty infiltration of the | | | liver parenchyma there is no focal mass lesion. BILIARY: | | | Unremarkable. SPLEEN: Unremarkable. PANCREAS: Again identified is | | | mild peripancreatic inflammatory stranding without evidence of ductal | | | dilatation. There is mild heterogeneous arterial enhancement as well, | | | likely reactive. This is most notable within the head of the pancreas, | | | where some regions of hypodensity are identified (101/5) without | | | evidence of measurable mass, or ductal dilatation or atrophy to | | | suggest mass lesion within this region. No discrete arterially | | | enhancing lesions identified as well to suggest neuroendocrine tumor. | | | ADRENALS: Unremarkable. KIDNEYS/URETERS: Simple cyst within the | | | kidneys, bilaterally. No evidence of hydronephrosis. GI TRACT: | | | Visualized portions are unremarkable. PERITONEUM: Trace fluid | | | surrounding the tail of the pancreas (90/5), stable to minimally | | | improved from the previous examination. No drainable fluid collection. | | | LYMPH NODES: No lymphadenopathy. VESSELS: Unremarkable. BONES | | | AND SOFT TISSUES: Unremarkable. IMPRESSION: Since 01/18/17, | | | stable to minimal improvement in mild peripancreatic inflammatory | | | changes suggestive of possible autoimmune pancreatitis versus | | | resolving pancreatitis without evidence of focal mass lesion. Fatty | | | liver. I have personally reviewed the images and, if necessary, | | | edited the report. I agree with the report as now presented. | | + + + + + | Procedure Note | + + | Service Account, [employer] Res In Interface - 03/11/2017 12:43 PM [...] pancreas | + + documented in this encounter Administered Medications + +---------+ +--------+------+------+ | Medication Order | MAR | Action | Dose | Rate | Site | | | Action | Date | | | | + +---------+ +--------+------+------+ | iohexol (OMNIPAQUE) 350 mg | IV Push | //20 | 125 mL | | | | iodine/mL injection 125 mL 125 | | 17 11:45 | | | | | mL, intravenous, ONCE, 1 dose, | | AM PST | | | | | Vero 03/11/17 at 1145 | | | | | | + +---------+ +--------+------+------+ +---+---+ | | | +---+---+ documented in this encounter"
--- OUTSIDE RECORDS SUMMARY | ~2018-09-05 | XMS | Encounter Summary ---
Demographics + + + | Address | [address] | | | [place] [address] | + + + | Home Phone | | + + + | Preferred Language | Unknown | + + + | Marital Status | | + + + | Caodaism Affiliation | ASG | + + + | Race | White | + + + | Ethnic Group | Not or | + + + Author + + + | Author | [facility] | + + + | Organization | [facility] | + + + | Address | Unknown | + + + | Phone | Unavailable | + + + Support + + + + + | Name | Relationship | Address | Phone | + + + + + | hCristy Flaherty | ECON | [address] | | | | | [place] | | | | | [address] | | + + + + + Care Team Providers + +------+ + | Care Parking Lot Spotter Name | Role | Phone | + [...] | | 2018 | | Center at [facility] | [address] | Received (05/12/17 | | | | [address] | [address] | Fecal Elastase | | | | Mailcode: Center | [place], [place] | Results- [facility]) | | | | for Health and | [address] | | | | | [facility] 2 | [phone] | | | | | [place], [place] | | | | | | [address] | | | | | | [phone] | | | +--------+ + + + [...]
--- OUTSIDE RECORDS SUMMARY | ~2018-09-05 | XMS | Encounter Summary ---
Demographics + + + | Address | [address] | | | [place] [address] | + + + | Home Phone | | + + + | Preferred Language | Unknown | + + + | Marital Status | | + + + | Mandaen Affiliation | ASG | + + + | Race | White | + + + | Ethnic Group | Not or | + + + Author + + + | Author | [facility] | + + + | Organization | [facility] | + + + | Address | Unknown | + + + | Phone | Unavailable | + + + Support + + + + + | Name | Relationship | Address | Phone | + + + + + | Christy Flaherty | ECON | [address] | | | | | [place] | | | | | [address] | | + + + + + Care Team Providers + +------+ + | Care Poultry Scalder Name | Role | Phone | + [...] | | Recurrent | MD Taiwo | [facility] 6503 | | | | | pancreatitis | [address] | [address] | | | | | ([facility]) | [address] | Mailcode: | | | | | Procedures | Rd | [facility] | | | | | CT | [place], [place] | for Health | | | | | MULTIPHASE | [address] | and Healing, | | | | | PANCREAS AND | Phone: | 3rd Floor | | | | | [address] | [phone] | [facility] [place] | | | | | CONTRAST | Fax: | [address] | | | | | [place] | [phone] | Phone: | | | | | ABD&PELV 1+ | | [phone] | | | | | SECTION/REGN | | Fax: | | | | | S | | [phone] | +--------+--------+ + + + + Diagnostic [...] | | Recurrent | MD Taiwo | [facility] [address] | | | | | pancreatitis | [address] | [address] | | | | | ([facility]) | [facility] | Mailcode: | | | | | Procedures | Rd | [facility] | | | | | CT | [place], [place] | for Health | | | | | MULTIPHASE | [address] | and Healing, | | | | | PANCREAS AND | Phone: | 3rd Floor | | | | | [address] | [phone] | [place], [place] | | | | | CONTRAST | Fax: | [address] | | | | | [place] | [phone] | Phone: | | | | | ABD&PELV 1+ | | [phone] | | | | | SECTION/REGN | | Fax: | | | | | S | | [phone] | +--------+--------+ + + + + Reason [...] | | Recurrent | MD Taiwo | [facility] [address] | | | | | pancreatitis | [address] | [address] | | | | | ([facility]) | [facility] | Mailcode: | | | | | Procedures | Rd | [facility] | | | | | CT | [place], [place] | for Health | | | | | MULTIPHASE | [address] | and Healing, | | | | | PANCREAS AND | Phone: | 3rd Floor | | | | | [address] | [phone] | [place], [place] | | | | | CONTRAST | Fax: | [address] | | | | | [place] | [phone] | Phone: | | | | | ABD&PELV 1+ | | [phone] | | | | | SECTION/REGN | | Fax: | | | | | S | | [phone] | +--------+--------+ + + + + Encounter Details +--------+ + + + + | Date | Type | Department | Care Team | Description | +--------+ + + + + | 07/29/ | Hospital | Radiology/Imaging | Taiwo Tilley, | | | 2018 | Encounter | Lab at [facility] [address] | [address] | | | | | [address] | [address] | | | | | Mailcode: CH3G | [place], [place] | | | | | [place] for [facility] | [address] | | | | | and Healing, 3rd | [phone] | | | | | Floor [facility] [place] | | | | | | [address] | | | | | | [phone] | | | +--------+ + + + [...] liquid | 1700 g | 1 | 03/11/ | | | glycol (MIRALAX) 17 | [...] | Procedure Note | + + | Herber Stubbs, Radiant Res In Interface - 07/29/2017 5:49 [...] | + + | Recurrent pancreatitis (HCC) Chronic pancreatitis | + + documented in [...]
--- OUTSIDE RECORDS SUMMARY | ~2018-09-05 | XMS | Clinical Summary ---
Demographics + + + | Address | [address] | | | [place] [address] | + + + | Home Phone | | + + + | Preferred Language | Unknown | + + + | Marital Status | | + + + | Scientologist Affiliation | 1061 | + + + | Race | Unknown | + + + | Ethnic Group | Unknown | + + + Author + + + | Author | [facility] | | | and [place] | + + + | Organization | [facility] | | | and [place] | + + + | Address | Unknown | + + + | Phone | Unavailable | + + + Support + + + + + | Name | Relationship | Address | Phone | + + + + + | Christy Flaherty | ECON | [address] | | | | | [place] | | | | | [address] | | + + + + + | Christy Flaherty | ECON | [address] | | | | | [place] | | | | | [address] | | + + + + + Care Team Providers + +------+ + | Care Wired Music Operator Name | Role | Phone | + +------+ + | Juan Demarco MD | PP | Unavailable | + +------+ + Allergies No Known Allergies Medications + + + +---------+------+------+-------+ | Medication [...] | + + + +---------+------+------+-------+ Active Problems No known active problems Social [...] | [employer] | MODA | [id number] | | [id number] | | Medica | | MEDICAID HMO | HEALTH | | 015-Pr | 1 | | id | | | MDCD | | esent | | | | | | [place] | | | | | | + +--------+ +--------+ +---------+--------+ | [employer] | BROADS | [id number] | | [phone] | | Indemn | | | PIRE [...] Person | Self | [birth year] | | [address] | | | al/Fam | | 1966 | [phone] | [place] | | | eladio | | | 7 (Home) | [address] | + +--------+ +--------+ + + | Daysi Flaherty | Worker | Self | [birth year] | | [address] | | | s Comp | | 1966 | [phone] | [place] [address] | | | | | | 7 (Home) | | + +--------+ +--------+ + + Advance Directives Patient has advance care planning documents on file. For more information, please contact:[facility] [place] [address]
--- OUTSIDE RECORDS SUMMARY | ~2018-09-05 | XMS | Encounter Summary ---
Demographics + + + | Address | [address] | | | [place] [address] | + + + | Home Phone | | + + + | Preferred Language | Unknown | + + + | Marital Status | | + + + | Religion Affiliation | ASG | + + + | Race | White | + + + | Ethnic Group | Not or | + + + Author + + + | Author | [facility] | + + + | Organization | [facility] | + + + | Address | Unknown | + + + | Phone | Unavailable | + + + Support + + + + + | Name | Relationship | Address | Phone | + + + + + | Christy Flaherty | ECON | [address] | | | | | [place] | | | | | [address] | | + + + + + Care Team Providers + +------+ + | Care Process Analyst Name | Role | Phone | + +------+ + | Filippo Chen DO | PCP | | + +------+ + Encounter Details +--------+------+ + + + | Date | Type | Department | Care Team | Description | +--------+------+ + + + | 09/04/ | Lab | Laboratory at [facility] | | Encounter for | | 2016 | | [address] | | long-term current | | | | [place], [place] | | use of medication | | | | [address] | | | | | | [phone] | | | +--------+------+ + + + [...] [facility] | [address] | [place] [address] | | | SERVICES, CENTER FOR | [...] [facility] | [address] | [place] [address] | | | SERVICES, CORE | PARK [...] | | | LABORATORY | | | [facility] | | | SERVICES, | | | [...] | + + + + + | [facility] | [address] | [place] [address] | | | SERVICES, CORE | [address] | | | + + + + + documented in this encounter Visit Diagnoses + + | Diagnosis | + + | Encounter for long-term current use of medication | + + documented in this encounter"
--- OUTSIDE RECORDS SUMMARY | ~2018-09-05 | XMS | Encounter Summary ---
Demographics + + + | Address | [address] | | | [place] [address] | + + + | Home Phone | | + + + | Preferred Language | Unknown | + + + | Marital Status | | + + + | Voodoo Affiliation | 1061 | + + + | Race | Unknown | + + + | Ethnic Group | Unknown | + + + Author + + + | Author | [facility] | + + + | Organization | [facility] | + + + | Address | Unknown | + + + | Phone | Unavailable | + + + Support + + + + + | Name | Relationship | Address | Phone | + + + + + | Christy Flaherty | ECON | [address] | | | | | [place] | | | | | [address] | | + + + + + Care Team Providers + +------+ + | Care Pulp Cooker Name | Role | Phone | + +------+ + | Filippo Chen DO | PCP | | + +------+ + Reason for Visit +--------+ + | Reason | Comments | +--------+ + | Other | [facility] | +--------+ + Encounter Details +--------+ + + + + | Date | Type | Department | Care Team | Description | +--------+ + + + + | 08/12/ | Documentati | [facility] | Amber Gloria Jiang, | Other (Ike | | 2019 | on Only | [facility] | [place] | [facility]) | | | | [address] | | | | | | [place] | | | | | | [address] | | | | | | [phone] | | | +--------+ + + + [...] Cardiology | Jb Mendiola, | | | 2018 | Visit | | MD [address] | | | | | | [place] [address] | | | | | | [phone] | | | | | | | | +--------+---------+ + + + as of this encounter Visit Diagnoses Not on filein this encounter"
--- OUTSIDE RECORDS SUMMARY | ~2018-09-05 | XMS | Encounter Summary ---
Demographics + + + | Address | [address] | | | [place] [address] | + + + | Home Phone [...] [place] | | | | | [address] | | + + + + + Care Team Providers + +------+ + | Care Pool Hand Name | Role | Phone | [...] [facility] [address] | [address] | | | | | [address] | [place], [place] | | | | | Road Mailcode: | [address] | | | | | [facility] | [phone] | | | | | [address] | | | | | | [place], [place] | | | | | | [address] | | | | | | [phone] | | | +--------+ + + + [...]
--- OUTSIDE RECORDS SUMMARY | ~2018-09-05 | XMS | Encounter Summary ---
Demographics + + + | Address | [address] | | | [place] [address] | + + + | Home Phone [...] + + + | Author | [facility] | + + + | Organization | [facility] | + + + | Address | Unknown | + + + | Phone | Unavailable | + + + Support + + + + + | Name | Relationship | Address | Phone | + + + + + | Christy Flaherty | ECON | [address] | | | | | [place] | | | | | [address] | | + + + + + Care Team Providers + +------+ + | Care Metal Fitter Name | Role | Phone | + [...] | | Recurrent | MD Taiwo | [facility] 0741 | | | | | pancreatitis | [address] | [address] | | | | | ([facility]) | [address] | Mailcode: | | | | | Procedures | Rd | [facility] | | | | | CT | [place], [place] | for Health | | | | | MULTIPHASE | [address] | and Healing, | | | | | PANCREAS AND | Phone: | 3rd Floor | | | | | [address] | [phone] | [place], [place] | | | | | CONTRAST | Fax: | [address] | | | | | [place] | [phone] | Phone: | | | | | ABD&PELV 1+ | | [phone] | | | | | SECTION/REGN | | Fax: | | | | | S | | [phone] | +--------+--------+ + + + + Reason [...] | | | | Mailcode: Center | [place], [place] | | | | | [facility] and | [address] | | | | | [facility], [facility] 2 | [phone] | | | | | [place], [place] | | | | | | [address] | | | | | | [phone] | | | +--------+ + + + [...] Note | + + | Service Account, [employer] Res In Interface - 07/29/2017 5:49 PM [...] | | LAB | | | | [place] [address] | | | | | | | [...]
--- OUTSIDE RECORDS SUMMARY | ~2018-09-05 | XMS | Encounter Summary ---
Demographics + + + | Address | [address] | | | [place] [address] | + + + | Home Phone | | + + + | Preferred Language | Unknown | + + + | Marital Status | | + + + | Christian Affiliation | ASG | + + + | Race | White | + + + | Ethnic Group | Not or | + + + Author + + + | Author | [facility] | + + + | Organization | [facility] | + + + | Address | Unknown | + + + | Phone | Unavailable | + + + Support + + + + + | Name | Relationship | Address | Phone | + + + + + | Christy Flaherty | ECON | [address] | | | | | [place] | | | | | [address] | | + + + + + Care Team Providers + +------+ + | Care Carrier Associate Name | Role | Phone | [...] Center at [facility] [address] | [address] | Received (05/07/2017 | | | | [address] | [address] | Serum Trypsin | | | | Mailcode: Center | [place], [place] | Results- [facility]) | | | | for Health and | [address] | | | | | [facility] 2 | [phone] | | | | | [place], [place] | | | | | | [address] | | | | | | [phone] | | | +--------+ + + + [...]
--- OUTSIDE RECORDS SUMMARY | ~2018-09-05 | XMS | Encounter Summary ---
Demographics + + + | Address | [address] | | | [place] [address] | + + + | Home Phone | | + + + | Preferred Language | Unknown | + + + | Marital Status | | + + + | Jewish Affiliation | ASG | + + + | Race | White | + + + | Ethnic Group | Not or | + + + Author + + + | Author | [facility] | + + + | Organization | [facility] | + + + | Address | Unknown | + + + | Phone | Unavailable | + + + Support + + + + + | Name | Relationship | Address | Phone | + + + + + | Christy Flaherty | ECON | [address] | | | | | [place] | | | | | [address] | | + + + + + Care Team Providers + +------+ + | Care Border Patrol Officer Name | Role | Phone | [...] | | | | with complex | [place], [place] | [place] | | | | | partial | [address] | [address] | | | | | seizures, | Phone: | Phone: | | | | | intractable, | [phone] | [phone] | | | | | without | Fax: | Fax: | | | | | status | [phone] | [phone] | | | | | epilepticus | | | | | | | ([facility]) | | | | | [...] | of | [address] | | | | | intracranial | [address] | [place], [place] | | | | | structures | [place], | [address] | | | | | [place]: [place] | [place] [address] | Phone: | | | | | | Phone: | [phone] | | | | | | [phone] | Fax: | | | | | | Fax: | [phone] | | | | | | [phone] | | +--------+ + + + + + Encounter Details +--------+---------+ + + + | Date | Type | Department | Care Team | Description | +--------+---------+ + + + | 07/01/ | Office | Neurosurgery at | Sylvia Triana MD | 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 Cerebellar: Normal [id number], and rapid alternating movements. Gait: Normal. Tandem [...]
--- OUTSIDE RECORDS SUMMARY | ~2018-09-05 | XMS | Encounter Summary ---
Demographics + + + | Address | [address] | | | [place] [address] | + + + | Home Phone | | + + + | Preferred Language | Unknown | + + + | Marital Status | | + + + | Baptist Affiliation | ASG | + + + | Race | White | + + + | Ethnic Group | Not or | + + + Author + + + | Author | [facility] | + + + | Organization | [facility] | + + + | Address | Unknown | + + + | Phone | Unavailable | + + + Support + + + + + | Name | Relationship | Address | Phone | + + + + + | Christy Flaherty | ECON | [address] | | | | | [place] | | | | | [address] | | + + + + + Care Team Providers + +------+ + | Care Checkout Operator Name | Role | Phone | [...] Additional | | 2016 | Encounter | [facility] & | | Medications | | | | Healing [address] | | | | | | [address] Mail Code: | | | | | | CH[facility] | | | | | | Health and Healing, | | | | | | [address]th [facility], | | | | | | [place] [address] | | | | | | [phone] | | | +--------+ + + + [...]
--- OUTSIDE RECORDS SUMMARY | ~2018-09-05 | XMS | Encounter Summary ---
Demographics + + + | Address | [address] | | | [place] [address] | + + + | Home Phone [...] + + | Author | [facility] | + + + | Organization | [facility] | + + + | Address | Unknown | + + + | Phone | Unavailable | + + + Support + + + + + | Name | Relationship | Address | Phone | + + + + + | Christy Flaherty | ECON | [address] | | | | | [place] | | | | | [address] | | + + + + + Care Team Providers + +------+ + | Care Fuel Handler Name | Role | Phone | [...] Encounter | Services [address] MD [address] | | | | | [facility] | [facility] | | | | | Road [place], [place] | [place], [place] | | | | | [address] | [address] | | | | | | [phone] | | | | | | | [...] Multiphase CT of the abdomen | | | before and after intravenous contrast administration. Number of | | | images: 1483 FINDINGS: LOWER THORAX: Unremarkable. LIVER: | [...]
--- OUTSIDE RECORDS SUMMARY | ~2018-09-05 | XMS | Encounter Summary ---
Demographics + + + | Address | [address] | | | [place] [address] | + + + | Home Phone [...] [place] | | | | | [address] | | + + + + + Care Team Providers + +------+ + | Care Mica Plate Layer Hand Name | Role | Phone | [...] | | | | with complex | [place] | | | | | partial | [address] | [address] | | | | | seizures, | Phone: | Phone: | | | | | intractable, | [phone] | [phone] | | | | | without | Fax: | Fax: | | | | | status | [phone] | [phone] | | | | | epilepticus | | | | | | | (FORM[facility]LY [facility]) | | | | | | | [...] | | intracranial | [address] | [place], [place] | | | | | structures | [place], | [address] | | | | | INS: [place] | [place] [address] | Phone: | | | | | | Phone: | [phone] | | | | | | [phone] | Fax: | | | | | | Fax: | [phone] | | | | | | [phone] | | +--------+ + + + + + Encounter Details +--------+---------+ + + + | Date | Type | Department | Care Team | Description | +--------+---------+ + + + | 07/01/ | Office | Neurosurgery at | Sylvia Triana MD | 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 | [address] | seizures, | | | | and Healing, [address] | [phone] | intractable, without | | | | Floor [place], [place] | | status epilepticus | | | | [address] | | (FORM[facility]LY [facility]) (Primary Dx) | | | | [phone] | | | +--------+---------+ + + + [...] to pinprick and light touch. Cerebellar: Normal hymfii-te-hwgf, and rapid alternating movements. Gait: Normal. Tandem [...]
--- OUTSIDE RECORDS SUMMARY | ~2018-09-05 | XMS | Clinical Summary ---
Demographics + + + | Address | [address] | | | [place] [address] | + + + | Home Phone | | + + + | Preferred Language | Unknown | + + + | Marital Status | | + + + | Islam Affiliation | 1061 | + + + | Race | Unknown | + + + | Ethnic Group | Unknown | + + + Author + + + | Author | [facility] | + + + | Organization | [facility] | + + + | Address | Unknown | + + + | Phone | Unavailable | + + + Support + + + + + | Name | Relationship | Address | Phone | + + + + + | Christy Grande | ECON | [address] | | | | | [place] | | | | | [address] | | + + + + + Care Team Providers + +------+ + | Care Structural Steel Fitter Name | Role | Phone | [...] | on Only | | [place] | [facility]) | +--------+ + + + + | 08/10/ | Documentati | | Aure Joyce, | Jacobo ([facility] | | 2018 | on Only | | NEUROLOGY SPECIALIST | | +--------+ + + + + | 08/03/ | Ancillary | | [place], | Aortic valve | | 2018 | Procedure | | MD | insufficiency, | | | | | | etiology of cardiac | | | | | | valve disease | | | | | | unspecified; Seizure | | | | | | ([facility]) | +--------+ + + + + | 08/03/ | Ancillary | | [place], | Aortic valve | | 2018 | Orders | | MD | insufficiency, | | | | | | etiology of cardiac | | | | | | valve disease | | | | | | unspecified; Seizure | | | | | | ([facility]) | +--------+ + + + + from [...] | | | | | [place] [address] | | | | | | [phone] | | | | | | | [...] | | | function. 4. There is cnmu-je-jjyhaznf aortic regurgitation. 5. In | | | [...] function. 4. There | | | is uawe-sf-qnvmwyjd aortic regurgitation. 5. In comparison to the [...] Aortic Valve: There is | | | tscl-qk-ocpzmnku aortic regurgitation, decreased from moderate AI on [...] MV A George: 0.45 m/s MV Dec Rowan: 2.84 m/s2 | | | MV DecT: [...] RV | | | s': 0.09 m/s Wound Care Specialist: COURT Authenticated by: Sarthak Busby | | | Khari Report Date/Time: 08-03-2018 19:45:5 | | + + + + + | Procedure Note | + + | Mohit Underwood Results In - 08/03/2018 7:50 PM PDT Patient Name: Jen GRANDE of | | : 1965Accession: [id number] Physician: Sarthak Busby | | Lehr INDICATIONS | | -HX OF AORTIC INSUFFICIENCY, ENDOCARDITIS, POST OP GALLBLADDERCONCLUSIONS 1. | | This was a technically difficult study with suboptimal views.2. Overall left ventricular | | systolic function is low-normal with an EF between 50 - 55 %.3. The right ventricle is | | normal in size and function.4. There is anqa-us-rqvmlcdx aortic regurgitation. 5. In | | comparison [...] a previous KRAIG. Aortic Valve: There is vpkf-wh-fynwztyo | | aortic regurgitation, decreased from moderate [...] | 5.55 cmLVPWd: 0.78 cmLVOT Area: 3.90 sd3INSW Diam: 2.22 cm%FS: 21.16 %EF(Teich): | | 42.51 %ESV(Teich): 86.63 mlLVIDs: 4.37 cmSV(Teich): 64.06 mlRV Major: 8.82 | | cmRV Minor: 3.15 cmLVEF MOD A4C: 57.64 %SV MOD A4C: 113.24 mlLVEDV MOD A4C: | | 196.46 mlLVLd A4C: 9.01 cmLVESV MOD A4C: 83.21 mlLVLs A4C: 8.29 cmLAESV(A-L): | | 48.21 mlLAESV Index (A-L): 20.96 ml/m2LAAs A2C: 16.67 rz7WZAHD A-L A2C: 52.96 | | mlLALs A2C: 4.45 cmLAAs A4C: 15.18 hn0RXADD A-L A4C: 41.97 mlLALs A4C: 4.66 | | cmRAAs: 11.25 vn8DLMAF A-L: 24.67 mlRAESV MOD: 24.34 mlRALs: 4.35 cmTAPSE: | | 2.25 cmAV maxP.73 mmHgAV meanP.49 mmHgAV Vmax: 1.78 m/Stormy Vmean: 1.19 | | m/Stormy VTI: 38.51 cmAVA Vmax: 1.78 cm2AVA (VTI): 2.07 os0VGAO (Vmax): 0.00 | | cm2/m2AVAI (VTI): 0.00 cm2/m2LVOT maxP.67 mmHgLVOT meanP.41 mmHgLVSI Dopp: | | 34.67 ml/m2LVSV Dopp: 79.74 mlLVOT Vmax: 0.81 m/sLVOT Vmean: 0.56 m/sLVOT VTI: | | 20.44 cmMV A George: 0.45 m/sMV Dec Rowan: 2.84 m/s2MV DecT: 216.66 msMV E George: | | 0.61 m/sMV E/A Ratio: 1.36 MV PHT: 62.83 msMVA By PHT: 3.50 vq6Kkbyni e': 0.06 | | m/sSeptal E/e': 8.91 [...] size and function.4. | | There is vewl-px-pudyyacr aortic regurgitation. 5. In comparison to the [...] A George: 0.45 m/s | |MV Dec Rowan: 2.84 m/s2 | |MV DecT: 216.66 ms [...] |RV s': 0.09 m/s | | | |Wound Care Specialist: DBS | |Authenticated by: Sarthak Lucia | |Report Date/Time: 08-03-2018 19:45:5 | | | |IMPRESSION: | |1. This was a technically difficult study with suboptimal views. | |2. Overall left ventricular systolic function is low-normal with an EF between 50 - 55 %. | |3. The right ventricle is normal in size and function. | |4. There is hvxz-wl-lxxpkinl aortic regurgitation. 5. In comparison to the previous echocar diographic study, done 07/20/16, only minor changes are noted, as reported below. | + + + + + + + | Performing | Address | City/State/Zipcode | Phone Number | | Organization | | | | + + + + + | [facility] | [address] | [place] [address] | | + + + + + [...] +------+-------+ + | MEDICAID | [place] | [id number] | | | [address] | | | [place] | | | | [place] | | | [place] | | | | [address] | | | RADIOLOGICAL ENGINEER | | | | | + [...] | [place] | | | [address] | [address] | + +--------+ +--------+ + +
--- OUTSIDE RECORDS SUMMARY | ~2018-09-05 | XMS | Encounter Summary ---
Demographics + + + | Address | [address] | | | [place] [address] | + + + | Home Phone [...] [place] | | | | | [address] | | + + + + + Care Team Providers + +------+ + | Care Medical Secretary Name | Role | Phone | + +------+ + | Filippo Chen DO | PCP | | + +------+ + Encounter Details +--------+ + + + + | Date | Type | Department | Care Team | Description | +--------+ + + + + | 09/16/ | MyChart | Neurology at | [place]e [place], | RE: 01.2803: | | 2016 | Encounter | [facility] & | MD | Category of | | | | Healing [address] | | Impairments, | | | | [place] Mail Code: | | Neurological | | | | [facility] | | | | | | Health and Healing, | | | | | | [address] [place] [address], | | | | | | [place] [address] | | | | | | [phone] | | | +--------+ + + + [...]
--- OUTSIDE RECORDS SUMMARY | ~2018-09-05 | XMS | Encounter Summary ---
Demographics + + + | Address | [address] | | | [place] [address] | + + + | Home Phone [...] + + + | Author | [facility] | + + + | Organization | [facility] | + + + | Address | Unknown | + + + | Phone | Unavailable | + + + Support + + + + + | Name | Relationship | Address | Phone | + + + + + | Christy Flaherty | ECON | [address] | | | | | [place] | | | | | [address] | | + + + + + Care Team Providers + +------+ + | Care Industrial Hygiene Engineer Name | Role | Phone | + +------+ + | Filippo Chen DO | PCP | | + +------+ + Reason for Visit + + + | Reason | Comments | + + + | Pre-Admission | [facility] | + + + | Epilepsy | child day care provider; chart review and pre-admin assessment | + + + Encounter Details +--------+ + + + + | Date | Type | Department | Care Team | Description | +--------+ + + + + | 10/01/ | Telephone | Neurology at | [place], | Pre-Admission ([facility] | | 2016 | | [facility] | [address] | ); Epilepsy (RN | | | | Healing [address] | [facility] | Navigator; chart | | | | Hector Cabrera Mail Code: | [place], [place] | review and pre-admin | | | | [address] | [address] | assessment) | | | | Health and Healing, | | | | | | [address] [facility], | | | | | | [place] [address] | | | | | | [phone] | | | +--------+ + + + [...]
--- OUTSIDE RECORDS SUMMARY | ~2018-09-05 | XMS | Clinical Summary ---
Demographics + + + | Address | [address] | | | [place] [address] | + + + | Home Phone | | + + + | Preferred Language | Unknown | + + + | Marital Status | | + + + | Yazdanism Affiliation | ASG | + + + [...] [place] | | | | | [address] | | + + + + + Care Team Providers + +------+ + | Care Dog Bather Name | Role | Phone | + +------+ + | Filippo Chen DO | PP | | + +------+ + Source Comments ANALI is fully live on both [facility] Ambulatory and [facility] InPatient.[facility] Allergies + + + + + + [...] + + + + + + | Esobuig-Wam-Fby | Seizures | | 12/17/19 | Increased [...] and drink two times | | | /20 | | e | | gram/dose oral [...] + + + | Pneumococcal | | | | | vaccination (1 of 3 | 1 | | | | - PCV13) | | | | + + + + + | Influenza (Flu) | | | | | vaccination (Season | 9 | | | | Ended) | | | | + + + [...] | | | + +--------+ +--------+-------+---------+--------+ | ADMINISTRATOR [employer] MEDICAID | ADMINISTRATOR [employer]ARE | [id number] | 08/03/19 | | | [...] [birth year] | | [address] | | | al/Fam | | 1966 | [phone] | [place] [address] | | | [place] | | | [...]
--- OUTSIDE RECORDS SUMMARY | ~2018-09-05 | XMS | Encounter Summary ---
Demographics + + + | Address | [address] | | | [place] [address] | + + + | Home Phone | | + + + | Preferred Language | Unknown | + + + | Marital Status | | + + + | Sabianism Affiliation | ASG | + + + | Race | White | + + + | Ethnic Group | Not or | + + + Author + + + | Author | [facility] | + + + | Organization | [facility] | + + + | Address | Unknown | + + + | Phone | Unavailable | + + + Support + + + + + | Name | Relationship | Address | Phone | + + + + + | Christy Flaherty | ECON | [address] | | | | | [place] | | | | | [address] | | + + + + + Care Team Providers + +------+ + | Care Mold Forms Builder Name | Role | Phone | + [...] 2018 | on | [place] | [address] | | | | | [address] [place], [place] | [address] | | | | | [address] | [place], [place] | | | | | [phone] | [address] | | | | | | [phone] | | | | | | | [...]
--- OUTSIDE RECORDS SUMMARY | ~2018-09-05 | XMS | Encounter Summary ---
Demographics + + + | Address | [address] | | | [place] [address] | + + + | Home Phone | | + + + | Preferred Language | Unknown | + + + | Marital Status | | + + + | Mormon Affiliation | ASG | + + + | Race | White | + + + | Ethnic Group | Not or | + + + Author + + + | Author | [facility] | + + + | Organization | [facility] | + + + | Address | Unknown | + + + | Phone | Unavailable | + + + Support + + + + + | Name | Relationship | Address | Phone | + + + + + | Christy Flaherty | ECON | [address] | | | | | [place] | | | | | [address] | | + + + + + Care Team Providers + +------+ + | Care Supervisor Files Name | Role | Phone | + [...] + + | 12/16/ | Hospital | [facility] 10D 3181 | Carla Chicas MD | | | 2016 - | Encounter | [address] | [address] | | | | | [address] [place] | [place] [address], | | | 12/22/ | | [facility] 10D | [place] [address] | | | 2015 | | [place], [place] | [phone] | | | | | [address] | | | | | | [phone] | Anthony De La O MD | | | | | | [address] | | | | | | [place], [place] | | | | | | [address] | | | | | | [phone] | | | | | | | [...] attending physician. If you have access to [facility] General [employer] this letter will be available in the Encounters tab labeled "Other-EMU Discharge Summary" s hortly after the patient's discharge. Reason for Admission: Daysi Flaherty is a 50 y.o. male admitted for diagnostic 24-hour video EEG monitoring in the [facility] Comprehensive Epilepsy Monitoring Unit. Hospital Course: The [...] We treated the patient's tooth pain with Brea, magic mouthwash, Tylenol. We treated constipation with [...] was unremarkable. Daysi Flaherty Home Medication Instructions ENDER:[id number] Printed on:12/23/15 1027 Medication Information acetaminophen 325 mg oral tablet [...] 25 mg 25 mg oral Q6H PRN zayyoyurbuRMNRT-gpxrzccat-FHOAYF (SPECIAL MOUTHWASH) suspension (compound) 5-10 mL 5-1 [...] Details have been entered in a separate [facility] clinical neurophysiology procedure report. Assessment/Plan (by problem): [...] to his being on valproate 3. Continue Brea for pain. 4. Telemetry monitoring given cardiac [...] reviewing the EEG record. 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 Continue Brea for pain. 4. Telemetry monitoring given cardiac [...] time spent reviewing the EEG re cord. [facility] DEPARTMENT: Neurology Epilepsy Attending - [id number] Place of Service: - Date of Service: 12/22/15 [facility]: [id number] Suggested Modifier: 25 - Separate E/M service performed by provider (or other rehabilitation team lead) on same day as procedure Suggested EEG CPT: 05805 - EEG Video, (12 - 24 hours) Suggested E/M and Procedure CPT: 76903 - Low complexity, (15 minutes >50% counseling [...] and has seen a sleep specialist in [place] who feels he has a high probabil [...] addition to the highly suspected apneas. O verterri, it does not seem to be worse today than what he reports at baseline. There is no ass ociated chest pain or other symptoms. Current Facility-Administered Medications Medication Dose Route Frequency acetaminophen (TYLENOL) tablet 325-650 mg 325-650 mg oral Q4H PRN chlorhexidine (PERIDEX) mouthwash 15 mL 15 mL oral BID diphenhydrAMINE (BENADRYL) capsule 25 mg 25 mg oral Q6H PRN cmkqjbzbanDRQSB-ptwbijufm-FNXNLJ (SPECIAL MOUTHWASH) suspension (compound) 5-10 mL 5-1 [...] bid esteban nued outpt dosage 3. Continue Brea for pain. 4. Telemetry monitoring given cardiac [...] the time spent reviewing the EEG record. 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 His personal leaning is to [...] 4. Continue other home meds 5. Continue Brea for pain. 6. Telemetry monitoring given cardiac history and h/o GTCs 7. Neuropsych testing as an outpatient 8. He was going to have LTG started in August however his pharmacy never filled the rx. His n eurologist here at [facility] had then moved so it was never [...] Electronically signed Anthony De La O MD. 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 [...] to drive and is not working at thi s time. His personal leaning is to [...] 4. Continue other home meds 5. Continue Brea for pain. 6. Telemetry monitoring given cardiac history and h/o GTCs 7. Neuropsych testing as an outpatient 8. He was going to have LTG started in August however his pharmacy never filled the rx. His n eurologist here at [facility] had then moved so it was never [...] Electronically signed Anthony De La O MD. 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 Continue other home meds 5. Continue Brea for pain. 6. Telemetry monitoring given cardiac history and h/o GTCs 7. neuropsych testing as an outpatient 8. He was going to have LTG started in August however his pharmacy never filled the rx. His n eurologist here at [facility] had then moved so it was never [...] Electronically signed Anthony De La O MD. [facility] DEPARTMENT: Neurology Epilepsy Attending - [id number] Place of Service: - Date of Service: 12/18/15 CSN: [id number] Suggested Modifier: 25 - Separate E/M service performed by provider (or other rehabilitation team lead) on same day as procedure Suggested EEG CPT: 76057 - EEG Video, (12 - 24 hours) Suggested E/M and Procedure CPT: 04841 - Moderate complexity, (25 minutes >50% counseling [...] | | Date of Test: 12/22/2015 Place | [facility], | | of Service: [facility] [phone] - [phone] [facility] Department: EEG [facility] - | POINT OF CARE | | [phone] X RAY SERVICE TECHNICIAN VIDEO EEG Start Date/Time: 12/22/15 | TESTS | | End Date/Time: 12/23/15 Telemetry Number: [id number] Please refer to | | | the cumulative longterm EEG report from the first day of this | | | recording period for results. | | + + + + + + + + | Performing | Address | City/State/Zipcode | Phone Number | | Organization | | | | + + + + + | [facility] | [address] | [place], [place] | | | [facility] | [address] | [address] | | | TESTS | | | [...] + + + | X-RAY | EXAM: AL CHEST 1 VIEW | | | | [...] | | + +---------+ + + | [facility] DEPARTMENT OF | | | | | RADIOLOGY | | | | + +---------+ + + EEG CONTINUOUS, ADULT (12/21/2015) + + + | Narrative | Performed At | + + + | Patient Name: Daysi Flaherty Date of : 1965 | [facility] - | | Date of Test: 12/21/2015 Place | [facility], | | of Service: [facility] [phone] - [phone] [facility] Department: EEG [facility] - | POINT OF CARE | | [phone] USP VIDEO EEG Start Date/Time: 12/21/15 | TESTS | | End Date/Time: 12/22/15 Telemetry Number: [id number] Please refer to | | | the cumulative longterm EEG report from the first day of this | | | recording period for results. | | + + + + + + + + | Performing | Address | City/State/Zipcode | Phone Number | | Organization | | | | + + + + + | [facility] | [address] | [place], [place] | | | [facility] | [address] | [address] | | | TESTS | | | [...] | | Date of Test: 12/20/2015 Place | [facility], | | of Service: [facility] [phone] - [phone] [facility] Department: EEG [facility] - | POINT OF CARE | | [phone] X RAY SERVICE TECHNICIAN VIDEO EEG Start | TESTS | | Date/Time: 12/20/2015 7:02 End Date/Time: 12/21/2015 Telemetry | | | Number: [id number] Please refer to the cumulative terminal manager EEG | | | report from the first day of this recording period for results. | | | | | + + + + + + + + | Performing | Address | City/State/Zipcode | Phone Number | | Organization | | | | + + + + + | [facility] | [address] | [place], [place] | | | [facility] | [address] | [address] | | | TESTS | | | [...] | | Date of Test: 12/19/2015 Place | [facility], | | of Service: [facility] [phone] - [phone] [facility] Department: EEG [facility] - | POINT OF CARE | | [phone] X RAY SERVICE TECHNICIAN VIDEO EEG Start Date/Time: | TESTS | | 12/19/15 End Date/Time: 12/20/15 Telemetry Number: [id number] | | | Please refer to the cumulative longterm EEG report from the first | | | day of this recording period for results. | | | | | + + + + + + + + | Performing | Address | City/State/Zipcode | Phone Number | | Organization | | | | + + + + + | [facility] | [address] | [place], [place] | | | [facility] | [address] | [address] | | | TESTS | | | [...] | | Date of Test: 12/18/2015 Place | [facility], | | of Service: [facility] [phone] - [phone] [facility] Department: EEG [facility] - | POINT OF CARE | | [phone] USP VIDEO EEG Start | TESTS | | Date/Time: 12/18/2015 End Date/Time: 12/19/2015 Telemetry | | | Number: [id number] Please refer to the cumulative longterm EEG | | | report from the first day of this recording period for results. | | | | | + + + + + + + + | Performing | Address | City/State/Zipcode | Phone Number | | Organization | | | | + + + + + | [facility] | [address] | [place], [place] | | | [facility] | [address] | [address] | | | TESTS | | | [...] | | Date of Test: 12/17/2015 Place | [facility], | | of Service: [facility] [phone] - [facility] Department: EEG [facility] - | POINT OF CARE | | [phone] USP VIDEO EEG Start | TESTS | | Date/Time: 12/17/2015 End Date/Time: 12/23/2015 Telemetry | | | Number: [id number] Last Name: | | | Krystina First Name: Daysi Record #[id number] | | | ==== Admission Information ==== | | | Admit date: 12/17/2015 | | | Admit time: 9:00 AM | | | Discharge date: 12/23/2015 | | | Discharge time: 9:24 AM | | | Intracranial electrodes: None | | | ==== | | | Interictal EEG Summary ==== == EEG | | | Background == Generalized: None | | | == | | | EEG Epileptiform Activity == Comment: | | | No interictal epileptiform | | | discharges | | | ==== | | | Clinical Interpretation ==== Please | | | see detailed discharge letter for full clinical interpretation. This | | | epilepsy monitoring unit admission was severely limited by our | | | inability to record typical seizure auras or seizures. No clear | | | interictal epileptiform discharges were recorded. | | | | | | Every 24-hour segment of video EEG | | | monitoring recording beginning on 12/17/15 at 9 AM and ending on | | | 12/23/15 at 9:24 AM was reviewed, including each day in which no | | | discrete seizure events occurred. Electronically signed on | | | 12/23/2015 at 12:43 PM Anthony De La O MD. | | + + + + + + + + | Performing | Address | City/State/Zipcode | Phone Number | | Organization | | | | + + + + + | [facility] | [address] | [place], [place] | | | [facility] | [address] | [address] | | | TESTS | | | | + + + + + EEG ROUTINE (12/17/2015) + + + | Narrative | Performed At | + + + | Patient Name: Daysi Flaherty Date of : 1965 | [facility] - | | Date of Test: 12/17/2015 Place | [facility], | | of Service: [facility] [phone] - [facility] Department: EEG [facility] - | POINT OF CARE | | [phone] ROUTINE EEG History: 50-year-old man with history [...] oral, DAILY, Amador Mayorga, | | | CRYPTOLOGIC TECHNICIAN TECHNICAL HYDROcodone-acetaminophen (NORCO) 10-325 mg 1 tablet, 1 tablet, | | | oral, Q6H PRN, Amador Mayorga NP [START ON 12/19/2015] methotrexate | | | tablet 10 mg, 10 mg, oral, Q7D, Amador Mayorga NP [START ON | | [...] No focal slowing or epileptiform discharges were | | | present. Hyperventilation was not performed because of comorbid | | | medical conditions. Photic stimulation produced no photoparoxysmal | | | discharges or other abnormal responses. EKG showed normal sinus | | | rhythm throughout the recording. Impression: This is a normal | | | awake and drowsy EEG. A normal EEG does [...] + + + | [facility] | [address] | [place], [place] | | | [facility] | [address] | [phone] | | | TESTS | | | [...] | | FOUR TIMES DAILY, First dose on | | AM PDT | | | | | 12/23/15 at [...] | 10 mL | | | | srenktawrzEEQMP-raanydddu-BHATIX | | 16 10:42 | | | | | (SPECIAL MOUTHWASH) suspension | | AM PDT | | | | | (compound) 5-10 mL 5-10 mL, | | | | | | | oral, FOUR TIMES DAILY NEEDED, | | | | | | | Starting [facility] 12/19/15 at 0210, | | | | [...] PM PDT | | | | | on 12/22/15 at 1000, Last dose | | | | | | | on 12/22/15 at 2200 | | | | [...] | | | DAILY, First dose on Wed12/18/15 | | AM PDT | | | | | at 2100, [...] | | | DAILY, First dose on Wed12/17/15 | | AM PDT | | | | | at 2100, [...] | | | oral, ONCE, 1 dose, Wed12/20/15 | | PM PDT | | | [...] | | TWICE DAILY, First dose on Fri | | AM PDT | | [...]
--- OUTSIDE RECORDS SUMMARY | ~2018-09-05 | XMS | Encounter Summary ---
Demographics + + + | Address | [address] | | | [place] [address] | + + + | Home Phone [...] [place] | | | | | [address] | | + + + + + Care Team Providers + +------+ + | Care Fire Prevention Inspector Name | Role | Phone | [...] 12/04/ | Documentati | Neurology at | Destiny Butch | Outside Records | | 2017 | on | [facility] & | G, DO [address] | Received (Dr. Chen | | | | Healing [address] | records 03/29 - | | | | [address] Mail Code: | [place], [place] | 12/03/2016) | | | | [facility] | [address] | | | | | Health and Healing, | [phone] | | | | | [address] [place] [address], | | | | | | [place] [address] | | | | | | [phone] | | | +--------+ + + + [...]
--- OUTSIDE RECORDS SUMMARY | ~2018-09-05 | XMS | Encounter Summary ---
Demographics + + + | Address | [address] | | | [place] [address] | + + + | Home Phone | | + + + | Preferred Language | Unknown | + + + | Marital Status | | + + + | Zoroastrianism Affiliation | ASG | + + + | Race | White | + + + | Ethnic Group | Not or | + + + Author + + + | Author | [facility] | + + + | Organization | [facility] | + + + | Address | Unknown | + + + | Phone | Unavailable | + + + Support + + + + + | Name | Relationship | Address | Phone | + + + + + | Christy Flaherty | ECON | [address] | | | | | [place] | | | | | [address] | | + + + + + Care Team Providers + +------+ + | Care Shotblast Operator Name | Role | Phone | [...] | | | | Mailcode: Center | [place], [place] | Results- [employer]) | | | | for Health and | [address] | | | | | [facility] | [phone] | | | | | [place], [place] | | | | | | [address] | | | | | | [phone] | | | +--------+ + + + [...]
--- OUTSIDE RECORDS SUMMARY | ~2018-09-05 | XMS | Encounter Summary ---
Demographics + + + | Address | [address] | | | [place] [address] | + + + | Home Phone | | + + + | Preferred Language | Unknown | + + + | Marital Status | | + + + | Worship Affiliation | ASG | + + + | Race | White | + + + | Ethnic Group | Not or | + + + Author + + + | Author | [facility] | + + + | Organization | [facility] | + + + | Address | Unknown | + + + | Phone | Unavailable | + + + Support + + + + + | Name | Relationship | Address | Phone | + + + + + | Christy Flaherty | ECON | [address] | | | | | [place] | | | | | [address] | | + + + + + Care Team Providers + +------+ + | Care Strategic Marketing Associate Name | Role | Phone | + +------+ + | Filippo Chen DO | PCP | | + +------+ + Encounter Details +--------+ + + + + | Date | Type | Department | Care Team | Description | +--------+ + + + + | 09/25/ | Telephone | Neurology at | Noe [place], | | | 2015 | | [facility] & | | | | | | Healing [address] | | | | | | [address] Mail Code: | | | | | | [facility] | | | | | | Health and Healing, | | | | | | 8th floor [place], | | | | | | [place] [address] | | | | | | [phone] | | | +--------+ + + + [...]
--- OUTSIDE RECORDS SUMMARY | ~2018-09-05 | XMS | Encounter Summary ---
Demographics + + + | Address | [address] | | | [place] [address] | + + + | Home Phone [...] [place] | | | | | [address] | | + + + + + Care Team Providers + +------+ + | Care Hose Tubing Backer Name | Role | Phone | + [...] (Referral | | 2016 | on | [facility] & | [address] [facility] | to ) | | | | Healing [address] | [address]ree Santillan [place], | | | | | [address] Mail Code: | [place] [address] | | | | | [facility] | [phone] | | | | | Health and Healing, | | | | | | [address]th [facility], | | | | | | [place] [address] | | | | | | [phone] | | | +--------+ + + + [...]
--- OUTSIDE RECORDS SUMMARY | ~2018-09-05 | XMS | Encounter Summary ---
Demographics + + + | Address | [address] | | | [place] [address] | + + + | Home Phone [...] + + + | Author | [facility] | + + + | Organization | [facility] | + + + | Address | Unknown | + + + | Phone | Unavailable | + + + Support + + + + + | Name | Relationship | Address | Phone | + + + + + | Christy Flaherty | ECON | [address] | | | | | [place] | | | | | [address] | | + + + + + Care Team Providers + +------+ + | Care Collaborating Supervising Physician Name | Role | Phone | [...] | 2016 | | AMBULATORY [address] | BODILY INJURY ADJUSTER [address] [facility] | consultation | | | | [address] | [facility] | | | | | Road Mailcode: [address]A | [place], [place] | | | | | [place], [place] | [address] | | | | | [address] | [phone] | | | | | [phone] | | | +--------+ + + + [...]
--- OUTSIDE RECORDS SUMMARY | ~2018-09-05 | XMS | Encounter Summary ---
Demographics + + + | Address | [address] | | | [place] [address] | + + + | Home Phone [...] [place] | | | | | [address] | | + + + + + Care Team Providers + +------+ + | Care Marine Tower Operator Name | Role | Phone | + +------+ + | Filippo Chen DO | PCP | | + +------+ + Encounter Details +--------+------+ + + + | Date | Type | Department | Care Team | Description | +--------+------+ + + + | 09/04/ | Lab | Laboratory at [facility] | | Encounter for | | 2016 | | [address] | | long-term current | | | | [place], [place] | | use of medication | | | | [address] | | | | | | [phone] | | | +--------+------+ + + + [...] [facility] | [address] | [place] [address] | | | SERVICES, CENTER FOR | [...] [facility] | [address] | [place] [address] | | | SERVICES, CORE | [address]ARK [...] | | | LABORATORY | | | BULGARIAN | | | SERVICES, | | | [...] | + + + + + | [facility] | [address] | [place] [address] | | | SERVICES, CORE | [address] | | | + + + + + documented in this encounter Visit Diagnoses + + | Diagnosis | + + | Encounter for long-term current use of medication | + + documented in this encounter"
--- OUTSIDE RECORDS SUMMARY | ~2018-09-05 | XMS | Encounter Summary ---
Demographics + + + | Address | [address] | | | [place] [address] | + + + | Home Phone | | + + + | Preferred Language | Unknown | + + + | Marital Status | | + + + | Jew Affiliation | ASG | + + + | Race | White | + + + | Ethnic Group | Not or | + + + Author + + + | Author | [facility] | + + + | Organization | [facility] | + + + | Address | Unknown | + + + | Phone | Unavailable | + + + Support + + + + + | Name | Relationship | Address | Phone | + + + + + | Christy Flaherty | ECON | [address] | | | | | [place] | | | | | [address] | | + + + + + Care Team Providers + +------+ + | Care Boring Machine Operator Production Name | Role | Phone | + [...] [id number] | [address] | [place]) | | | | [address] | [address] [place] [address] | | | | | Mailcode: Center | [place], [place] | | | | | for Health and | [address] | | | | | [place] [address] | [phone] | | | | | [place], [place] | | | | | | [address] | | | | | | [phone] | | | +--------+ + + + [...]
--- OUTSIDE RECORDS SUMMARY | ~2018-09-05 | XMS | Encounter Summary ---
Demographics + + + | Address | [address] | | | [place] [address] | + + + | Home Phone [...] [place] | | | | | [address] | | + + + + + Care Team Providers + +------+ + | Care Superintendent Horticulture Name | Role | Phone | + [...] To Surgery | | 2017 | | [place] at [facility] [address] | | - General | | | | [address] | | | | | | Mailcode: Center | | | | | | for Health and | | | | | | [facility] [address] | | | | | | [place], [place] | | | | | | [address] | | | | | | [phone] | | | +--------+ + + + [...]
--- OUTSIDE RECORDS SUMMARY | ~2018-09-05 | XMS | Encounter Summary ---
Demographics + + + | Address | [address] | | | [place] [address] | + + + | Home Phone | | + + + | Preferred Language | Unknown | + + + | Marital Status | | + + + | Judaism Affiliation | ASG | + + + | Race | White | + + + | Ethnic Group | Not or | + + + Author + + + | Author | [facility] | + + + | Organization | [facility] | + + + | Address | Unknown | + + + | Phone | Unavailable | + + + Support + + + + + | Name | Relationship | Address | Phone | + + + + + | Christy Flaherty | ECON | [address] | | | | | [place] | | | | | [address] | | + + + + + Care Team Providers + +------+ + | Care Radiochemical Technician Name | Role | Phone | [...] | 2018 | Encounter | Center at [address] | [address] | | | | | [address] | [address] | | | | | Mailcode: Center | [place], [place] | | | | | [facility] and | [address] | | | | | [facility], Building 2 | [phone] | | | | | [place], [place] | | | | | | [address] | | | | | | [phone] | | | +--------+ + + + [...]
--- OUTSIDE RECORDS SUMMARY | ~2018-09-05 | XMS | Encounter Summary ---
Demographics + + + | Address | [address] | | | [place] [address] | + + + | Home Phone [...] [place] | | | | | [address] | | + + + + + Care Team Providers + +------+ + | Care Painting Instructor Name | Role | Phone | [...] | | Recurrent | MD Taiwo | [facility] 9017 | | | | | pancreatitis | [address] | [address]se[address] Cabrera | | | | | ([facility]) | [address] | Mailcode: | | | | | Procedures | Rd | [facility] | | | | | CT | [place], [place] | for Health | | | | | MULTIPHASE | [address] | and Healing, | | | | | PANCREAS AND | Phone: | 3rd Floor | | | | | [address] | [phone] | [facility] [place] | | | | | CONTRAST | Fax: | [address] | | | | | [place] | [phone] | Phone: | | | | | ABD&PELV 1+ | | [phone] | | | | | SECTION/REGN | | Fax: | | | | | S | | [phone] | +--------+--------+ + + + + Diagnostic [...] Cabrera | | | | | ([facility]) | [facility] | Mailcode: | | | | | Procedures | Rd | [facility] | | | | | CT | [place], [place] | for Health | | | | | MULTIPHASE | [address] | and Healing, | | | | | PANCREAS AND | Phone: | 3rd Floor | | | | | P[address]VIS [address] | [phone] | [place], [place] | | | | | CONTRAST | Fax: | [address] | | | | | [place] | [phone] | Phone: | | | | | ABD&PELV 1+ | | [phone] | | | | | SECTION/REGN | | Fax: | | | | | S | | [phone] | +--------+--------+ + + + + Reason [...] Cabrera | | | | | ([facility]) | [facility] | Mailcode: | | | | | Procedures | Rd | [facility] | | | | | CT | [place], [place] | for Health | | | | | MULTIPHASE | [address] | and Healing, | | | | | PANCREAS AND | Phone: | 3rd Floor | | | | | [address]VIS [address] | [phone] | [place], [place] | | | | | CONTRAST | Fax: | [address] | | | | | [place] | [phone] | Phone: | | | | | ABD&PELV 1+ | | [phone] | | | | | SECTION/REGN | | Fax: | | | | | S | | [phone] | +--------+--------+ + + + + Encounter Details +--------+ + + + + | Date | Type | Department | Care Team | Description | +--------+ + + + + | 07/29/ | Hospital | Radiology/Imaging | Taiwo Tilley, | | | 2018 | Encounter | Lab at [facility] [address] | [address] | | | | | [address] | [address] | | | | | Mailcode: CH3G | [place], [place] | | | | | [facility] | [address] | | | | | and Healing, 3rd | [phone] | | | | | Floor [facility] [place] | | | | | | [address] | | | | | | [phone] | | | +--------+ + + + [...]
--- OUTSIDE RECORDS SUMMARY | ~2018-09-05 | XMS | Encounter Summary ---
Demographics + + + | Address | [address] | | | [place] [address] | + + + | Home Phone | | + + + | Preferred Language | Unknown | + + + | Marital Status | | + + + | Buddhist Affiliation | ASG | + + + | Race | White | + + + | Ethnic Group | Not or | + + + Author + + + | Author | [facility] | + + + | Organization | [facility] | + + + | Address | Unknown | + + + | Phone | Unavailable | + + + Support + + + + + | Name | Relationship | Address | Phone | + + + + + | Christy Flaherty | ECON | [address] | | | | | [place] | | | | | [address] | | + + + + + Care Team Providers + +------+ + | Care Sfdc Solution Architect Name | Role | Phone [...] Test Results | | 2017 | | [facility] at [facility] 3[address] | [address] | | | | | [address] | [address] | | | | | Mailcode: Agate | [place], [place] | | | | | for Health and | [address] | | | | | [facility] 2 | [phone] | | | | | [place], [place] | | | | | | [address] | | | | | | [phone] | | | +--------+ + + + [...]
--- OUTSIDE RECORDS SUMMARY | ~2018-09-05 | XMS | Encounter Summary ---
Demographics + + + | Address | [address] | | | [place] [address] | + + + | Home Phone | | + + + | Preferred Language | Unknown | + + + | Marital Status | | + + + | Alevism Affiliation | ASG | + + + | Race | White | + + + | Ethnic Group | Not or | + + + Author + + + | Author | [facility] | + + + | Organization | [facility] | + + + | Address | Unknown | + + + | Phone | Unavailable | + + + Support + + + + + | Name | Relationship | Address | Phone | + + + + + | Christy Flaherty | ECON | [address] | | | | | [place] | | | | | [address] | | + + + + + Care Team Providers + +------+ + | Care Splitting Machine Operator Name | Role | Phone | + +------+ + | Lisa Pinon DO | PCP | | + +------+ [...] Order | [facility] [address] | [address] | | | | | [address] | [place], [place] | | | | | Road Mailcode: | [address] | | | | | [address] [place] | [phone] | | | | | [address] | | | | | | [place], [place] | | | | | | [address] | | | | | | [phone] | | | +--------+ + + + [...] + | MRN: | [facility] | | [id number] Date: 04/09/2017Patient Name: Daysi Cook #: | ENDOSCOPY | | [id number] of : 1965CSN: [id number] Type: | | | AmbulatoryRoom: GI 3Procedure: Upper | | | EUSIndications: Abnormal ultrasound of the | | | abdomenProviders: YANNI TILLEY MD (Doctor), | | | LUIS A MAYES RN (Nurse), | | | JYOTI RODRIGUEZ, Volunteer Manager (Volunteer Manager)Referring | | | MD: YANNI TILLEY MDRequesting Provider: | | | Medicines: [...] | procedure. The Olympus | | | [id number] AL5 Linear Echoendoscope #[id number] | | | was introduced through the | | | mouth, and advanced to the | | | second part of duodenum. The Olympus [id number]-[id number] Endoscope | | | #[id number] was introduced | | | through the [...] stylet was used. A | | | delphi developer was present and performed a preliminary cytologic [...] | | | Initiated On: 04/09/2017 1:07 [facility] Letter to: LISA PINON, | | | DO | | + [...]
--- OUTSIDE RECORDS SUMMARY | ~2018-09-05 | XMS | Encounter Summary ---
Demographics + + + | Address | [address] | | | [place] [address] | + + + | Home Phone [...] [place] | | | | | [address] | | + + + + + Care Team Providers + +------+ + | Care Roll Out Manager Name | Role | Phone | [...] | | | [address] | [place], [place] | | | | | Road Mailcode: | [address] | | | | | [address] [place] | [phone] | | | | | [address] | | | | | | [place], [place] | | | | | | [address] | | | | | | [phone] | | | +--------+ + + + [...]
--- OUTSIDE RECORDS SUMMARY | ~2018-09-05 | XMS | Encounter Summary ---
Demographics + + + | Address | [address] | | | [place] [address] | + + + | Home Phone [...] [place] | | | | | [address] | | + + + + + Care Team Providers + +------+ + | Care Water Pipe Installer Name | Role | Phone | [...] | | | pancreatitis | [facility] | [address] | | | | | ([facility]) | Rd | Mailcode: | | | | | Procedures | [place], [place] | [address] | | | | | CONSULT TO | [address] | [place] | | | | | GI PROCEDURE | Phone: | [address] | | | | | UNIT: EUS | [phone] | [place], | | | | | LIMITED [place] | Fax: | [place] [address] | | | | | ANESTH UPPER | [phone] | Phone: | | | | | GI | | [phone] | | | | | ENDOSCOPIC | | Fax: | | | | | VISUALIZE | | [phone] | | | | | [place] UPPR GI | | | | | [...] | | | | | Elevated | [place], [place] | Health and | | | | | lipase | [address] | Healing, | | | | | Procedures | Phone: | Building 2 | | | | | CONSULT TO | [phone] | [facility] [place] | | | | | GASTROENTERO | Fax: | [address] | | | | | LOGY | [phone] | Phone: | | | | | | | [phone] | | | | | | | Fax: | | | | | | | [phone] | +--------+--------+ + + + + Encounter [...] | | | | Mailcode: Center | [place], [place] | | | | | [facility] Health and | [address] | | | | | [facility] 2 | [phone] | | | | | [place], [place] | | | | | | [address] | | | | | | [phone] | | | +--------+---------+ + + + [...] might be different fro m the original. [facility] Patient Name: Daysi Flaherty MR#: [id number] : 1965 This is a 51 y/o [...] in the last one years. [facility]. On one or two [...] 6 week with no resolution. He has [place] 1 stools. He is non-smoker (ex-smoker) and [...] upon disco ntinue. Meloxicam Diarrhea Bowel incontinence Vuqeugl-Cju-Ddt Reductase Inhibitors Seizures Increased frequency of seizures, [...]
--- OUTSIDE RECORDS SUMMARY | ~2018-09-05 | XMS | Encounter Summary ---
Demographics + + + | Address | [address] | | | [place] [address] | + + + | Home Phone [...] Author + + + | Author | [facility] | + + + | Organization | [facility] | + + + | Address | Unknown | + + + | Phone | Unavailable | + + + Support + + + + + | Name | Relationship | Address | Phone | + + + + + | Christy Flaherty | ECON | [address] | | | | | [place] | | | | | [address] | | + + + + + Care Team Providers + +------+ + | Care Cottonseed Meat Presser Name | Role | Phone | + [...] | Pancreatic | Paras Jorge, | [address] | | | | | mass | MD [address] | [address] | | | | | Procedures | [address] | Mailcode: | | | | | CT ABDOMEN | Jayshree Santillan | [facility] | | | | | WWO IV | [place], [place] | for Health | | | | | CONTRAST [place] | [address] | and Healing, | | | | | CT SCAN OF | Phone: | 3rd Floor | | | | | ABDOMEN | [phone] | [facility] [place] | | | | | COMBO | Fax: | [address] | | | | | | [phone] | Phone: | | | | | | | [phone] | | | | | | | Fax: | | | | | | | [phone] | +--------+--------+ + + + + Diagnostic [...] | | | | WWO IV | [place], [place] | for Health | | | | | [place] | [address] | and Healing, | | | | | CT SCAN OF | Phone: | 3rd Floor | | | | | ABDOMEN | [phone] | [place], [place] | | | | | COMBO | Fax: | [address] | | | | | | [phone] | Phone: | | | | | | | [phone] | | | | | | | Fax: | | | | | | | [phone] | +--------+--------+ + + + + Reason [...] | | | | WWO IV | [place], [place] | for Health | | | | | [place] | [address] | and Healing, | | | | | CT SCAN OF | Phone: | 3rd Floor | | | | | ABDOMEN | [phone] | [place], [place] | | | | | COMBO | Fax: | [address] | | | | | | [phone] | Phone: | | | | | | | [phone] | | | | | | | Fax: | | | | | | | [phone] | +--------+--------+ + + + + Encounter Details +--------+ + + + + | Date | Type | Department | Care Team | Description | +--------+ + + + + | 03/11/ | Hospital | Radiology/Imaging | Paras Baker | | | 2017 | Encounter | Lab at [facility] 3303 | MD Ania [address] | | | | | [address]se[address]rera | [facility] | | | | | Mailcode: CH3G | [facility] [place] | | | | | [facility] | [address] | | | | | and L[facility]ta [facility] | [phone] | | | | | Floor [place], [place] | | | | | | [address] | | | | | | [phone] | | | +--------+ + + + [...] Note | + + | Service Account, Reeher Res In Interface - 03/11/2017 12:43 PM [...]
--- OUTSIDE RECORDS SUMMARY | ~2018-09-05 | XMS | Clinical Summary ---
Demographics + + + | Address | [address] | | | [place] [address] | + + + | Home Phone [...] [place] | | | | | [address] | | + + + + + Care Team Providers + +------+ + | Care Interventional Radiology Technologist Name | Role | Phone | + +------+ + | Filippo Chen DO | PP | | + +------+ + Source Comments ANALI is fully live on both [facility] Ambulatory and [facility] InPatient.[facility] Allergies + + + + + [...] + + + + + + | Egtigyg-Fbx-Let | Seizures | | 12/17/19 | Increased [...] | | | + +--------+ +--------+-------+---------+--------+ | CLINICAL NURSING INSTRUCTOR MEDICAID | CLINICAL NURSING INSTRUCTOR | xxxxxxxx | 08/03/19 | | | [...] | | 1966 | [phone] | [place] [address] | | | eladio | | | [...]
--- OUTSIDE RECORDS SUMMARY | ~2018-09-05 | XMS | Encounter Summary ---
Demographics + + + | Address | [address] | | | [place] [address] | + + + | Home Phone [...] [place] | | | | | [address] | | + + + + + Care Team Providers + +------+ + | Care City Plant Supervisor Name | Role | Phone | [...] MD | | | 2015 | | [facility] Health & | [address] | | | | | Healing [address] | [place], [place] | | | | | Hector Cabrera Mail Code: | [address] | | | | | [facility] | [phone] | | | | | Health and Healing, | | | | | | [address] [place] [address], | | | | | | [place] [address] | | | | | | [phone] | | | +--------+ + + + [...]
--- OUTSIDE RECORDS SUMMARY | ~2018-09-05 | XMS | Encounter Summary ---
Demographics + + + | Address | [address] | | | [place] [address] | + + + | Home Phone [...] [place] | | | | | [address] | | + + + + + Care Team Providers + +------+ + | Care Transfer Professor Name | Role | Phone | [...] Records | | 2017 | on | [facility] & | G, DO [address] | Received (Dr. Chen | | | | Healing [address] | [address] | records 03/29 - | | | | Hector Cabrera Mail Code: | [place], [place] | 12/03/2016) | | | | [facility] | [address] | | | | | Health and Healing, | [phone] | | | | | [address] [place] [address], | | | | | | [place] [address] | | | | | | [phone] | | | +--------+ + + + [...]
--- OUTSIDE RECORDS SUMMARY | ~2018-09-05 | XMS | Encounter Summary ---
Demographics + + + | Address | [address] | | | [place] [address] | + + + | Home Phone [...] [place] | | | | | [address] | | + + + + + Care Team Providers + +------+ + | Care Ethnographic Materials Conservator Name | Role | Phone | + [...] | | | | | | [address] | | | | | | [address] | | | | | | [place], [place] | | | | | | [address] | | | | | | [phone] | | | +--------+ + + + [...]
--- OUTSIDE RECORDS SUMMARY | ~2018-09-05 | XMS | Encounter Summary ---
Demographics + + + | Address | [address] | | | [place] [address] | + + + | Home Phone [...] [place] | | | | | [address] | | + + + + + Care Team Providers + +------+ + | Care Reexaminer Name | Role | Phone | + [...] and | | 2016 | Encounter | [facility] & | DO Lon [address] | Medications | | | | Healing [address] | [address] | | | | | Hector Cabrera Mail Code: | [place], [place] | | | | | [facility] | [address] | | | | | Health and Healing, | [phone] | | | | | [address] [place] [address], | | | | | | [place] [address] | | | | | | [phone] | | | +--------+ + + + [...]
--- OUTSIDE RECORDS SUMMARY | ~2018-09-05 | XMS | Clinical Summary ---
Demographics + + + | Address | [address] | | | [place] [address] | + + + | Home Phone [...] [place] | | | | | [address] | | + + + + + | Christy Flaherty | ECON | [address] | | | | | [place] | | | | | [address] | | + + + + + Care Team Providers + +------+ + | Care Field Account Manager Name | Role | Phone | [...] | [employer] | MODA | [id number] | | [address] | | Medica | | MEDICAID HMO | HEALTH | | 015-Pr | 1 | | id | | | MDCD | | esent | | | | | | [place] | | | | | | + +--------+ +--------+ +---------+--------+ | [employer] | BROADS | [id number] | | [phone] | | Indemn | | | PIRE [...] | | al/Fam | | 1966 | [phone] | [place] | | | eladio | | | 7 (Home) | [address] | + +--------+ +--------+ + + | Daysi Flaherty | Worker | Self | [birth year] | | [address] | | | s Comp | | 1966 | [phone] | [place] [address] | | | | | | 7 (Home) | | + +--------+ +--------+ + + Advance Directives Patient has advance care planning documents on file. For more information, please contact:[facility] [place] [address]
--- OUTSIDE RECORDS SUMMARY | ~2018-09-05 | XMS | Encounter Summary ---
Demographics + + + | Address | [address] | | | [place] [address] | + + + | Home Phone [...] [place] | | | | | [address] | | + + + + + Care Team Providers + +------+ + | Care Honing Job Setter Name | Role | Phone | + [...] Mailcode: | | | | | | [address] | | | | | | [facility] | | | | | | [place], [place] | | | | | | [address] | | | | | | [phone] | | | +--------+ + + + [...]
--- OUTSIDE RECORDS SUMMARY | ~2018-09-05 | XMS | Encounter Summary ---
Demographics + + + | Address | [address] | | | [place] [address] | + + + | Home Phone [...] [place] | | | | | [address] | | + + + + + Care Team Providers + +------+ + | Care Chef Assistant Name | Role | Phone | [...] Additional | | 2016 | Encounter | [facility] & | | Medications | | | | Healing [address] | | | | | | [address] Mail Code: | | | | | | [facility] | | | | | | Health and Healing, | | | | | | [facility] [facility], | | | | | | [place] [address] | | | | | | [phone] | | | +--------+ + + + [...]
--- OUTSIDE RECORDS SUMMARY | ~2018-09-05 | XMS | Encounter Summary ---
Demographics + + + | Address | [address] | | | [place] [address] | + + + | Home Phone [...] Author + + + | Author | [facility] | + + + | Organization | [facility] | + + + | Address | Unknown | + + + | Phone | Unavailable | + + + Support + + + + + | Name | Relationship | Address | Phone | + + + + + | Christy Flaherty | ECON | [address] | | | | | [place] | | | | | [address] | | + + + + + Care Team Providers + +------+ + | Care Mandate Retail Service Merchandiser Name | Role | Phone | + +------+ + | Filippo Chen DO | PCP | | + +------+ + Encounter Details +--------+ + + + + | Date | Type | Department | Care Team | Description | +--------+ + + + + | 12/17/ | Documentati | Neurology at | Amador Mayorga N, | | | 2016 | on | [facility] & | HEAD OF DIGITAL [address] | | | | | Healing [address] | [address] | | | | | Hector Cabrera Mail Code: | [place], [place] | | | | | [facility] | [address] | | | | | Health and Healing, | [phone] | | | | | [address] [place] [address], | | | | | | [place] [address] | | | | | | [phone] | | | +--------+ + + + [...]
--- OUTSIDE RECORDS SUMMARY | ~2018-09-05 | XMS | Encounter Summary ---
Demographics + + + | Address | [address] | | | [place] [address] | + + + | Home Phone | | + + + | Preferred Language | Unknown | + + + | Marital Status | | + + + | Amish Affiliation | ASG | + + + | Race | White | + + + | Ethnic Group | Not or | + + + Author + + + | Author | [facility] | + + + | Organization | [facility] | + + + | Address | Unknown | + + + | Phone | Unavailable | + + + Support + + + + + | Name | Relationship | Address | Phone | + + + + + | Christy Flaherty | ECON | [address] | | | | | [place] | | | | | [address] | | + + + + + Care Team Providers + +------+ + | Care Industrial Conveyor Belt Repairer Name | Role | Phone | + +------+ + | Filippo Chen DO | PCP | | + +------+ + Encounter Details +--------+ + + + + | Date | Type | Department | Care Team | Description | +--------+ + + + + | 04/26/ | Telephone | Digestive Health | Taiwo Tilley, | | | 2017 | | [place] at [facility] [address] | [address] | | | | | [address] | [address] | | | | | Mailcode: Center | [place], [place] | | | | | for Health and | [address] | | | | | [facility] 2 | [phone] | | | | | [place], [place] | | | | | | [address] | | | | | | [phone] | | | +--------+ + + + [...]
--- OUTSIDE RECORDS SUMMARY | ~2018-09-05 | XMS | Encounter Summary ---
Demographics + + + | Address | [address] | | | [place] [address] | + + + | Home Phone [...] + + + | Author | [facility] | + + + | Organization | [facility] | + + + | Address | Unknown | + + + | Phone | Unavailable | + + + Support + + + + + | Name | Relationship | Address | Phone | + + + + + | Christy Flaherty | ECON | [address] | | | | | [place] | | | | | [address] | | + + + + + Care Team Providers + +------+ + | Care Biscuit Packer Name | Role | Phone | [...] | | 2018 | | Center at [facility] [address] | [address] | pancreatitis (HCC) | | | | [address] | [address] | | | | | Mailcode: Center | [place], [place] | | | | | for Health and | [address] | | | | | Healing, Building [address] | [phone] | | | | | [place], [place] | | | | | | [address] | | | | | | [phone] | | | +--------+ + + + [...] | REFERENCE | | | | [address] | | LAB | | | | [place] [address] | | | | | | | [...]
--- OUTSIDE RECORDS SUMMARY | ~2018-09-05 | XMS | Encounter Summary ---
Demographics + + + | Address | [address] | | | [place] [address] | + + + | Home Phone [...] [place] | | | | | [address] | | + + + + + Care Team Providers + +------+ + | Care Baked And Graphite Inspector Name | Role | Phone | [...] 01.2803: | | 2016 | Encounter | [facility] & | MD | Category of | | | | Healing [address] | | Impairments, | | | | [place] Mail Code: | | Neurological | | | | [facility] | | | | | | Health and Healing, | | | | | | [address] [place] [address], | | | | | | [place] [address] | | | | | | [phone] | | | +--------+ + + + [...]
--- OUTSIDE RECORDS SUMMARY | ~2018-09-05 | XMS | Encounter Summary ---
Demographics + + + | Address | [address] | | | [place] [address] | + + + | Home Phone | | + + + | Preferred Language | Unknown | + + + | Marital Status | | + + + | Temple Affiliation | 1061 | + + + | Race | Unknown | + + + | Ethnic Group | Unknown | + + + Author + + + | Author | [facility] [employer] [employer] [facility] | + + + | Organization | [facility] [employer] [facility] | + + + | Address | Unknown | + + + | Phone | Unavailable | + + + Support + + + + + | Name | Relationship | Address | Phone | + + + + + | Christy Grande | ECON | [address] | | | | | [place] | | | | | [address] | | + + + + + Care Team Providers + +------+ + | Care Telephone Clerk Name | Role | Phone | + +------+ + | Filippo Chen DO | PCP | | + +------+ + Encounter Details +--------+ + + + + | Date | Type | Department | Care Team | Description | +--------+ + + + + | 08/03/ | Ancillary | [facility] | [place], | Aortic valve | | 2019 | Procedure | ECHO | [address] [facility] | insufficiency, | | | | | [address] | etiology of cardiac | | | | | [place] [address] | valve disease | | | | | [phone] | unspecified; Seizure | | | | [...] | | | | | [place] [address] | | | | | | [phone] | | | | | | | | +--------+---------+ + + + as of this encounter Procedures [...] | | + +--------+ + + + in this encounter Results ECHO outside interpretation standard (08/03/2018 5:34 PM) + + + | Impressions | Performed At | + + + | 1. This was a technically difficult study with suboptimal views. 2. | [facility] | | Overall left ventricular systolic function is low-normal with an EF | RADIOLOGY | | between 50 - 55 %. 3. The right ventricle is normal in size and | | | function. 4. There is fzwe-rk-labfhocx aortic regurgitation. 5. In | | | comparison to the previous echocardiographic study, done 07/20/16, only | | | minor changes are noted, as reported below. | | + + + + + + | Narrative | Performed At | + + + | Patient Name: DAYSI GRANDE Date of : 1965 | [facility] | | Performing Physician: Sarthak Lucia | [...] function. 4. There | | | is abyp-tc-rzrijzea aortic regurgitation. 5. In comparison to the [...] Aortic Valve: There is | | | lsad-ax-dewskxlp aortic regurgitation, decreased from moderate AI on [...] MV A George: 0.45 m/s MV Dec [place]: 2.84 m/s2 | | | MV DecT: [...] RV | | | s': 0.09 m/s Bearing Press Machine Operator: COURT Authenticated by: Sarthak Busby | | | Khari Report Date/Time: 08-03-2018 19:45:5 | | + + + + + | Procedure Note | + + | Mohit Underwood Results In - 08/03/2018 7:50 PM PDT Patient Name: IRWIN GRANDESerena of | | : 1965Accession: [id number] Physician: Sarthak Busby | | Lehr INDICATIONS | | -HX OF AORTIC INSUFFICIENCY, ENDOCARDITIS, POST OP GALLBLADDERCONCLUSIONS 1. | | This was a technically difficult study with suboptimal views.2. Overall left ventricular | | systolic function is low-normal with an EF between 50 - 55 %.3. The right ventricle is | | normal in size and function.4. There is zomc-dc-ldcowwlx aortic regurgitation. 5. In | | comparison [...] a previous KRAIG. Aortic Valve: There is hdhi-kr-uytnblqk | | aortic regurgitation, decreased from moderate [...] | 5.55 cmLVPWd: 0.78 cmLVOT Area: 3.90 xl5WYKV Diam: 2.22 cm%FS: 21.16 %EF(Teich): | | 42.51 %ESV(Teich): 86.63 mlLVIDs: 4.37 cmSV(Teich): 64.06 mlRV Major: 8.82 | | cmRV Minor: 3.15 cmLVEF MOD A4C: 57.64 %SV MOD A4C: 113.24 mlLVEDV MOD A4C: | | 196.46 mlLVLd A4C: 9.01 cmLVESV MOD A4C: 83.21 mlLVLs A4C: 8.29 cmLAESV(A-L): | | 48.21 mlLAESV Index (A-L): 20.96 ml/m2LAAs A2C: 16.67 ef8URSOM A-L A2C: 52.96 | | mlLALs A2C: 4.45 cmLAAs A4C: 15.18 al9UKGYO A-L A4C: 41.97 mlLALs A4C: 4.66 | | cmRAAs: 11.25 rg6JMKJU A-L: 24.67 mlRAESV MOD: 24.34 mlRALs: 4.35 cmTAPSE: | | 2.25 cmAV maxP.73 mmHgAV meanP.49 mmHgAV Vmax: 1.78 m/Stormy Vmean: 1.19 | | m/Stormy VTI: 38.51 cmAVA Vmax: 1.78 cm2AVA (VTI): 2.07 fx6PUKG (Vmax): 0.00 | | cm2/m2AVAI (VTI): 0.00 cm2/m2LVOT maxP.67 mmHgLVOT meanP.41 mmHgLVSI Dopp: | | 34.67 ml/m2LVSV Dopp: 79.74 mlLVOT Vmax: 0.81 m/sLVOT Vmean: 0.56 m/sLVOT VTI: | | 20.44 cmMV A George: 0.45 m/sMV Dec [place]: 2.84 m/s2MV DecT: 216.66 msMV E George: | | 0.61 m/sMV E/A Ratio: 1.36 MV PHT: 62.83 msMVA By PHT: 3.50 ph8Bybyye e': 0.06 | | m/sSeptal E/e': 8.91 [...] size and function.4. | | There is klvx-sj-csrxvies aortic regurgitation. 5. In comparison to the [...] A George: 0.45 m/s | |MV Dec [place]: 2.84 m/s2 | |MV DecT: 216.66 ms [...] |RV s': 0.09 m/s | | | |Bearing Press Machine Operator: DBS | |Authenticated by: Sarthak Lucia | |Report Date/Time: 08-03-2018 19:45:5 | | | |IMPRESSION: | |1. This was a technically difficult study with suboptimal views. | |2. Overall left ventricular systolic function is low-normal with an EF between 50 - 55 %. | |3. The right ventricle is normal in size and function. | |4. There is nkvt-gz-deglwvzl aortic regurgitation. 5. In comparison to the previous echocar diographic study, done 07/20/16, only minor changes are noted, as reported below. | + + + + + + + | Performing | Address | City/State/Zipcode | Phone Number | | Organization | | | | + + + + + | [facility] | [address] | [place] [address] | | + + + + + in this encounter Visit Diagnoses + + | Diagnosis | + + | Aortic valve insufficiency, etiology of cardiac valve disease unspecified | + + | Seizure (HCC) | + + | Other convulsions | + +"
--- OUTSIDE RECORDS SUMMARY | ~2018-09-05 | XMS | Encounter Summary ---
Demographics + + + | Address | [address] | | | [place] [address] | + + + | Home Phone | | + + + | Preferred Language | Unknown | + + + | Marital Status | | + + + | Bahai Affiliation | 1061 | + + + | Race | Unknown | + + + | Ethnic Group | Unknown | + + + Author + + + | Author | [facility] | + + + | Organization | [facility] | + + + | Address | Unknown | + + + | Phone | Unavailable | + + + Support + + + + + | Name | Relationship | Address | Phone | + + + + + | Christy Grande | ECON | [address] | | | | | [place] | | | | | [address] | | + + + + + Care Team Providers + +------+ + | Care Director Of Corporate Communications Name | Role | Phone | + [...] | 2019 | Orders | JESS | [address] [facility] | insufficiency, | | | | | [address] | etiology of cardiac | | | | | [place] [address] | valve disease | | | | | [phone] | unspecified; Seizure | | | | [...] | | | | | [place] [address] | | | | | | [phone] | | | | | | | [...] | | | function. 4. There is cplu-np-kxlvtuqz aortic regurgitation. 5. In | | | comparison to the previous echocardiographic study, done 07/20/16, only | | | minor changes are noted, as reported below. | | + + + + + + | Narrative | Performed At | + + + | Patient Name: DAYSI GRANDE Date of : 1965 | [facility] | | Performing Physician: Sarthak [...] function. 4. There | | | is quzd-ax-vquixyay aortic regurgitation. 5. In comparison to the [...] Aortic Valve: There is | | | khxg-iv-pjesmxwx aortic regurgitation, decreased from moderate AI on [...] MV A George: 0.45 m/s MV Dec [place]: 2.84 m/s2 | | | MV DecT: [...] RV | | | s': 0.09 m/s Children'S Aide: COURT Authenticated by: Sarthak Busby | | | Khari Report Date/Time: 08-03-2018 19:45:5 | | + + + + + | Procedure Note | + + | Kj, Rad Results In - 08/03/2018 7:50 PM PDT Patient Name: Jen GRANDE of | | : 1965Accession: [id number] Physician: Sarthak Busby | | Lehr INDICATIONS | | -HX OF AORTIC INSUFFICIENCY, ENDOCARDITIS, POST OP GALLBLADDERCONCLUSIONS 1. | | This was a technically difficult study with suboptimal views.2. Overall left ventricular | | systolic function is low-normal with an EF between 50 - 55 %.3. The right ventricle is | | normal in size and function.4. There is ykdc-ov-uaixpxln aortic regurgitation. 5. In | | comparison [...] a previous KRAIG. Aortic Valve: There is pzjv-ut-dtlnjujp | | aortic regurgitation, decreased from moderate [...] | 5.55 cmLVPWd: 0.78 cmLVOT Area: 3.90 ri6DZHW Diam: 2.22 cm%FS: 21.16 %EF(Teich): | | 42.51 %ESV(Teich): 86.63 mlLVIDs: 4.37 cmSV(Teich): 64.06 mlRV Major: 8.82 | | cmRV Minor: 3.15 cmLVEF MOD A4C: 57.64 %SV MOD A4C: 113.24 mlLVEDV MOD A4C: | | 196.46 mlLVLd A4C: 9.01 cmLVESV MOD A4C: 83.21 mlLVLs A4C: 8.29 cmLAESV(A-L): | | 48.21 mlLAESV Index (A-L): 20.96 ml/m2LAAs A2C: 16.67 ct9OLICP A-L A2C: 52.96 | | mlLALs A2C: 4.45 cmLAAs A4C: 15.18 sg3POIEO A-L A4C: 41.97 mlLALs A4C: 4.66 | | cmRAAs: 11.25 qd0TVZAD A-L: 24.67 mlRAESV MOD: 24.34 mlRALs: 4.35 cmTAPSE: | | 2.25 cmAV maxP.73 mmHgAV meanP.49 mmHgAV Vmax: 1.78 m/Stormy Vmean: 1.19 | | m/Stormy VTI: 38.51 cmAVA Vmax: 1.78 cm2AVA (VTI): 2.07 hh4RHIC (Vmax): 0.00 | | cm2/m2AVAI (VTI): 0.00 cm2/m2LVOT maxP.67 mmHgLVOT meanP.41 mmHgLVSI Dopp: | | 34.67 ml/m2LVSV Dopp: 79.74 mlLVOT Vmax: 0.81 m/sLVOT Vmean: 0.56 m/sLVOT VTI: | | 20.44 cmMV A George: 0.45 m/sMV Dec [place]: 2.84 m/s2MV DecT: 216.66 msMV E George: | | 0.61 m/sMV E/A Ratio: 1.36 MV PHT: 62.83 msMVA By PHT: 3.50 hm7Peehpi e': 0.06 | | m/sSeptal E/e': 8.91 [...] size and function.4. | | There is ovtk-ba-kokonkzj aortic regurgitation. 5. In comparison to the [...] A George: 0.45 m/s | |MV Dec [place]: 2.84 m/s2 | |MV DecT: 216.66 ms [...] |RV s': 0.09 m/s | | | |Children'S Aide: DBS | |Authenticated by: Sarthak Lucia | |Report Date/Time: 08-03-2018 19:45:5 | | | |IMPRESSION: | |1. This was a technically difficult study with suboptimal views. | |2. Overall left ventricular systolic function is low-normal with an EF between 50 - 55 %. | |3. The right ventricle is normal in size and function. | |4. There is ptcp-oo-lltxtcsx aortic regurgitation. 5. In comparison to the previous echocar diographic study, done 07/20/16, only minor changes are noted, as reported below. | + + + + + + + | Performing | Address | City/State/Zipcode | Phone Number | | Organization | | | | + + + + + | [facility] | [address] | [place] [address] | | + + + + + in this encounter Visit Diagnoses + + | Diagnosis | + + | Aortic valve insufficiency, etiology of cardiac valve disease unspecified | + + | Seizure (HCC) | + + | Other convulsions | + +"
--- OUTSIDE RECORDS SUMMARY | ~2018-09-05 | XMS | Encounter Summary ---
Demographics + + + | Address | [address] | | | [place] [address] | + + + | Home Phone [...] + + + | Author | [facility] | + + + | Organization | [facility] | + + + | Address | Unknown | + + + | Phone | Unavailable | + + + Support + + + + + | Name | Relationship | Address | Phone | + + + + + | Christy Flaherty | ECON | [address] | | | | | [place] | | | | | [address] | | + + + + + Care Team Providers + +------+ + | Care Crop Farm Workers Name | Role | Phone | + [...] (Referral | | 2016 | on | [facility] & | [address] [facility] | to ) | | | | Healing [address] | Jayshree Santillan CARDIFF [address], | | | | | [address] Mail Code: | [place] [address] | | | | | [facility] | [phone] | | | | | Health and Healing, | | | | | | [address] [facility], | | | | | | [place] [address] | | | | | | [phone] | | | +--------+ + + + [...]
--- OUTSIDE RECORDS SUMMARY | ~2018-09-05 | XMS | Encounter Summary ---
Demographics + + + | Address | [address] | | | [place] [address] | + + + | Home Phone | | + + + | Preferred Language | Unknown | + + + | Marital Status | | + + + | Judaism Affiliation | ASG | + + + | Race | White | + + + | Ethnic Group | Not or | + + + Author + + + | Author | [facility] | + + + | Organization | [facility] | + + + | Address | Unknown | + + + | Phone | Unavailable | + + + Support + + + + + | Name | Relationship | Address | Phone | + + + + + | Christy Flaherty | ECON | [address] | | | | | [place] | | | | | [address] | | + + + + + Care Team Providers + +------+ + | Care Refrigeration Brazer/Solderer Name | Role | Phone | + [...] Encounter | Center at [address] | [address] | | | | | [address] | [address] | | | | | Mailcode: Center | [place], [place] | | | | | [facility] and | [address] | | | | | [facility], [address] | [phone] | | | | | [place], [place] | | | | | | [address] | | | | | | [phone] | | | +--------+ + + + [...]
--- OUTSIDE RECORDS SUMMARY | ~2018-09-05 | XMS | Encounter Summary ---
Demographics + + + | Address | [address] | | | [place] [address] | + + + | Home Phone [...] [place] | | | | | [address] | | + + + + + Care Team Providers + +------+ + | Care Business Development Agent Name | Role | Phone | [...] | | | | | Elevated | [place], [place] | Health and | | | | | lipase | [address] | Healing, | | | | | Procedures | Phone: | Building [address] | | | | | CONSULT TO | [phone] | [place], [place] | | | | | GASTROENTERO | Fax: | [address] | | | | | LOGY | [phone] | Phone: | | | | | | | [phone] | | | | | | | Fax: | | | | | | | [phone] | +--------+--------+ + + + + Encounter Details +--------+---------+ + + + | Date | Type | Department | Care Team | Description | +--------+---------+ + + + | 07/29/ | Office | Digestive Health | Taiwo Tilley, | 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 [facility] Patient Name: Daysi Flaherty MR#: [id number] : 1965 This is a 52 y/o [...] 6 week with no resolution. He has Edmonson 1 stools. He is non-smoker (ex-smoker) and [...] upon disco ntinue. Meloxicam Diarrhea Bowel incontinence Oyemdag-Gip-Hbr Reductase Inhibitors Seizures Increased frequency of seizures, [...]
--- OUTSIDE RECORDS SUMMARY | ~2018-09-05 | XMS | Encounter Summary ---
Demographics + + + | Address | [address] | | | [place] [address] | + + + | Home Phone [...] + + + | Author | [facility] | + + + | Organization | [facility] | + + + [...] [place] | | | | | [address] | | + + + + + Care Team Providers + +------+ + | Care Last Puller Name | Role | Phone | + [...] | | 2018 | | Center at [facility] | [address] | pancreatitis (HCC) | | | | [address] | [address] | | | | | Mailcode: Center | [place], [place] | | | | | for Health and | [address] | | | | | Healing, Building [address] | [phone] | | | | | [place], [place] | | | | | | [address] | | | | | | [phone] | | | +--------+ + + + [...] | | LAB | | | | [place] [address] | | | | | | | [...]
--- OUTSIDE RECORDS SUMMARY | ~2018-09-05 | XMS | Encounter Summary ---
Demographics + + + | Address | [address] | | | [place] [address] | + + + | Home Phone | | + + + | Preferred Language | Unknown | + + + | Marital Status | | + + + | Yazidism Affiliation | ASG | + + + | Race | White | + + + | Ethnic Group | Not or | + + + Author + + + | Author | [facility] | + + + | Organization | [facility] | + + + | Address | Unknown | + + + | Phone | Unavailable | + + + Support + + + + + | Name | Relationship | Address | Phone | + + + + + | Christy Flaherty | ECON | [address] | | | | | [place] | | | | | [address] | | + + + + + Care Team Providers + +------+ + | Care Renal Social Worker Name | Role | Phone [...] Encounter | Services [address] MD [address] | | | | | Elias [facility] | [facility] | | | | | Road [place], [place] | [place], [place] | | | | | [address] | [address] | | | | | | [phone] | | | | | | | [...]
--- OUTSIDE RECORDS SUMMARY | ~2018-09-05 | XMS | Encounter Summary ---
Demographics + + + | Address | [address] | | | [place] [address] | + + + | Home Phone [...] [place] | | | | | [address] | | + + + + + Care Team Providers + +------+ + | Care Motor Vehicle License Clerk Name | Role | Phone [...] MD | | | 2015 | | [facility] & | [address] | | | | | Healing [address] | [place], [place] | | | | | [address] Mail Code: | [address] | | | | | [facility] | [phone] | | | | | Health and Healing, | | | | | | [address] [place] [address], | | | | | | [place] [address] | | | | | | [phone] | | | +--------+ + + + [...]
--- OUTSIDE RECORDS SUMMARY | ~2018-09-05 | XMS | Encounter Summary ---
Demographics + + + | Address | [address] | | | [place] [address] | + + + | Home Phone [...] | Author | [facility] | + + + | Organization | [facility] | + + + | Address | Unknown | + + + | Phone | Unavailable | + + + Support + + + + + | Name | Relationship | Address | Phone | + + + + + | Christy Flaherty | ECON | [address] | | | | | [place] | | | | | [address] | | + + + + + Care Team Providers + +------+ + | Care Principal System Software Engineer Name | Role | Phone [...] Rd | | | | | [address] | [place], [place] | | | | | Road Mailcode: | [address] | | | | | [address] | [phone] | | | | | [address] | | | | | | [place], [place] | | | | | | [address] | | | | | | [phone] | | | +--------+ + + + [...] + | MRN: | [facility] | | [id number] Date: 04/09/2017Patient Name: Daysi Cook #: | ENDOSCOPY | | [id number] of : 1965CSN: [id number] Type: | | | AmbulatoryRoom: GI 3Procedure: Upper | | | EUSIndications: Abnormal ultrasound of the | | | abdomenProviders: YANNI TILLEY MD (Doctor), | | | LUIS A MAYES RN (Nurse), | | | JYOTI RODRIGUEZ, Scalp Treatment Operator (Scalp Treatment Operator)Referring | | | MD: YANNI TILLEY MDRequesting [...] | procedure. The Olympus | | | [id number] Linear Echoendoscope #[id number] | | | was introduced through the | | | mouth, and advanced to the | | | second part of duodenum. The Olympus [id number] Endoscope | | | #[id number] was introduced | | | through the [...] stylet was used. A | | | parking meter mechanic was present and performed a preliminary cytologic [...] | | | Initiated On: 04/09/2017 1:07 [facility] Letter to: LISA PINON, | | | [...]
--- OUTSIDE RECORDS SUMMARY | ~2018-09-05 | XMS | Encounter Summary ---
Demographics + + + | Address | [address] | | | [place] [address] | + + + | Home Phone [...] [place] | | | | | [address] | | + + + + + Care Team Providers + +------+ + | Care Wheel Alignment Technician Name | Role | Phone | [...] Question | | 2016 | Encounter | [facility] & | [address] | | | | | Healing [address] | [place], [place] | | | | | [address] Mail Code: | [address] | | | | | [address] | [phone] | | | | | Health and Healing, | | | | | | 8th floor [place], | | | | | | [place] [address] | | | | | | [phone] | | | +--------+ + + + [...]
--- OUTSIDE RECORDS SUMMARY | ~2018-09-05 | XMS | Encounter Summary ---
Demographics + + + | Address | [address] | | | [place] [address] | + + + | Home Phone | | + + + | Preferred Language | Unknown | + + + | Marital Status | | + + + | Hoahaoism Affiliation | 1061 | + + + | Race | Unknown | + + + | Ethnic Group | Unknown | + + + Author + + + | Author | [facility] | + + + | Organization | [facility] | + + + | Address | Unknown | + + + | Phone | Unavailable | + + + Support + + + + + | Name | Relationship | Address | Phone | + + + + + | Christy Flaherty | ECON | [address] | | | | | [place] | | | | | [address] | | + + + + + Care Team Providers + +------+ + | Care Yard Switch Operator Name | Role | Phone | + +------+ + | Filippo Chen DO | PCP | | + +------+ + Reason for Visit +--------+ + | Reason | Comments | +--------+ + | Other | [facility] | +--------+ + Encounter Details +--------+ + + + + | Date | Type | Department | Care Team | Description | +--------+ + + + + | /15/ | Documentfelipe | [facility] | Aure Joyce | Other ([place]) | | 2019 | on Only | Cardiology Shannan | PRIYANKA | | | | | [address] | | | | | | [place] | | | | | | [address] | | | | | | [phone] | | | +--------+ + + + [...] Dr | | | | | | [place] [address] | | | | | | [phone] | | | | | | | | +--------+---------+ + + + as of this encounter Visit Diagnoses Not on filein this encounter"
--- OUTSIDE RECORDS SUMMARY | ~2018-09-05 | XMS | Encounter Summary ---
Demographics + + + | Address | [address] | | | [place] [address] | + + + | Home Phone [...] [place] | | | | | [address] | | + + + + + Care Team Providers + +------+ + | Care Tooling Engineer Name | Role | Phone | [...] | | 2017 | | Center at [facility] [address] | MD Ania [address] | Received (02/24/2017 | | | | [address] | [address] | [place] A[place]P [place] | | | | Mailcode: Center | [place], [place] | [facility]) | | | | for Health and | [address] | | | | | [place] [address] | [phone] | | | | | [place], [place] | | | | | | [address] | | | | | | [phone] | | | +--------+ + + + [...]
--- OUTSIDE RECORDS SUMMARY | ~2018-09-05 | XMS | Encounter Summary ---
Demographics + + + | Address | [address] | | | [place] [address] | + + + | Home Phone [...] + + + | Author | [facility] | + + + | Organization | [facility] | + + [...] [place] | | | | | [address] | | + + + + + Care Team Providers + +------+ + | Care Sap Grc Security Name | Role | Phone | + [...] | Pancreatic | Paras Jorge, | [facility] [address] | | | | | mass | MD [address] | [address] | | | | | Epigastric | [address] | Mailcode: | | | | | pain | Jayshree Santillan | [place] for | | | | | Elevated | [place], [place] | Health and | | | | | lipase | [address] | Healing, | | | | | Procedures | Phone: | Building 2 | | | | | CONSULT TO | [phone] | [facility] [place] | | | | | GASTROENTERO | Fax: | [address] | | | | | LOGY | [phone] | Phone: | | | | | | | [phone] | | | | | | | Fax: | | | | | | | [phone] | +--------+--------+ + + + + Diagnostic [...] mass | MD [address] | [address] | | | | | Procedures | [address] | Mailcode: | | | | | CT ABDOMEN | [address] | [facility] | | | | | W[address] IV | [place], [place] | for Health | | | | | CONTRAST IN | [address] | and Healing, | | | | | CT SCAN OF | Phone: | 3rd Floor | | | | | ABDOMEN | [phone] | [place], [place] | | | | | COMBO | Fax: | [address] | | | | | | [phone] | Phone: | | | | | | | [phone] | | | | | | | Fax: | | | | | | | [phone] | +--------+--------+ + + + + Encounter Details +--------+ + + + + | Date | Type | Department | Care Team | Description | +--------+ + + + + | 02/24/ | Teacher Ballet | Endoscopic | Paras Baker | Pancreatic mass | | 2017 | | Procedural Unit at | MD Ania [address] | (Primary Dx); | | | | [place] [address] | [address] | Epigastric pain; | | | | [address] | [place], [place] | Elevated lipase | | | | Road Mailcode: | [address] | | | | | [address] | [phone] | | | | | [address] | | | | | | [place], [place] | | | | | | [address] | | | | | | [phone] | | | +--------+ + + + [...] Note | + + | Service Account, [employer] Res In Interface - 03/11/2017 12:43 PM [...] Note | + + | Service Account, Bench In Interface - 02/25/2017 5:25 PM PST [...]
--- OUTSIDE RECORDS SUMMARY | ~2018-09-05 | XMS | Encounter Summary ---
Demographics + + + | Address | [address] | | | [place] [address] | + + + | Home Phone | | + + + | Preferred Language | Unknown | + + + | Marital Status | | + + + | Baptism Affiliation | ASG | + + + | Race | White | + + + | Ethnic Group | Not or | + + + Author + + + | Author | [facility] | + + + | Organization | [facility] | + + + | Address | Unknown | + + + | Phone | Unavailable | + + + Support + + + + + | Name | Relationship | Address | Phone | + + + + + | Christy Flaherty | ECON | [address] | | | | | [place] | | | | | [address] | | + + + + + Care Team Providers + +------+ + | Care Doll Surgeon Name | Role | Phone | + +------+ + | Filippo Chen DO | PCP | | + +------+ + Encounter Details +--------+ + + + + | Date | Type | Department | Care Team | Description | +--------+ + + + + | 04/26/ | Procedure | Radiology/Imaging | | | | 2018 | Pass | Lab at [facility] [address] | | | | | | [address] | | | | | | Mailcode: CH3G | | | | | | [facility] | | | | | | and Healing, 3rd | | | | | | Floor [place], [place] | | | | | | [address] | | | | | | [phone] | | | +--------+ + + + [...]
--- OUTSIDE RECORDS SUMMARY | ~2018-09-05 | XMS | Encounter Summary ---
Demographics + + + | Address | [address] | | | [place] [address] | + + + | Home Phone | | + + + | Preferred Language | Unknown | + + + | Marital Status | | + + + | Protestant Affiliation | ASG | + + + | Race | White | + + + | Ethnic Group | Not or | + + + Author + + + | Author | [facility] | + + + | Organization | [facility] | + + + | Address | Unknown | + + + | Phone | Unavailable | + + + Support + + + + + | Name | Relationship | Address | Phone | + + + + + | Christy Flaherty | ECON | [address] | | | | | [place] | | | | | [address] | | + + + + + Care Team Providers + +------+ + | Care Bilingual Elementary School Teacher Name | Role | Phone [...] | | 2017 | | Center at [facility] [address] | MD Ania [address] | Received (02/24/2017 | | | | [address] | [address] | [place] | | | | Mailcode: Center | [place], [place] | [facility]) | | | | for Health and | [address] | | | | | [place] [address] | [phone] | | | | | [place], [place] | | | | | | [address] | | | | | | [phone] | | | +--------+ + + + [...]
--- OUTSIDE RECORDS SUMMARY | ~2018-09-05 | XMS | Encounter Summary ---
Demographics + + + | Address | [address] | | | [place] [address] | + + + | Home Phone | | + + + | Preferred Language | Unknown | + + + | Marital Status | | + + + | Jain Affiliation | 1061 | + + + | Race | Unknown | + + + | Ethnic Group | Unknown | + + + Author + + + | Author | [facility] | + + + | Organization | [facility] | + + + | Address | Unknown | + + + | Phone | Unavailable | + + + Support + + + + + | Name | Relationship | Address | Phone | + + + + + | Christy Flaherty | ECON | [address] | | | | | [place] | | | | | [address] | | + + + + + Care Team Providers + +------+ + | Care Universal Grinder Operator Name | Role | Phone | [...] KAILEY Bella | Aure Joyce | Other (Hassell) | | 2019 | on Only | Cardiology Shannan | PRIYANKA | | | | | [address] | | | | | | [place] | | | | | | [address] | | | | | | [phone] | | | +--------+ + + + [...] Dr | | | | | | [place] [address] | | | | | | [phone] | | | | | | | | +--------+---------+ + + + as of this encounter Visit Diagnoses Not on filein this encounter"
--- OUTSIDE RECORDS SUMMARY | ~2018-09-05 | XMS | Encounter Summary ---
Demographics + + + | Address | [address] | | | [place] [address] | + + + | Home Phone | | + + + | Preferred Language | Unknown | + + + | Marital Status | | + + + | Judaism Affiliation | 1061 | + + + | Race | Unknown | + + + | Ethnic Group | Unknown | + + + Author + + + | Author | [facility] | + + + | Organization | [facility] | + + + | Address | Unknown | + + + | Phone | Unavailable | + + + Support + + + + + | Name | Relationship | Address | Phone | + + + + + | Christy Flaherty | ECON | [address] | | | | | [place] | | | | | [address] | | + + + + + Care Team Providers + +------+ + | Care Twisting Department End Finder Name | Role | Phone | + +------+ + | Filippo Chen DO | PCP | | + +------+ + Reason for Visit +--------+ + | Reason | Comments | +--------+ + | Other | [facility] | +--------+ + Encounter Details +--------+ + + + + | Date | Type | Department | Care Team | Description | +--------+ + + + + | 08/12/ | Documentati | [facility] | Amber Gloria Jiang, | Other (Ike | | 2019 | on Only | [facility] | [place] | [facility]) | | | | [address] | | | | | | [place] | | | | | | [address] | | | | | | [phone] | | | +--------+ + + + [...] Dr | | | | | | [facility] [place] [address] | | | | | | [phone] | | | | | | | | +--------+---------+ + + + as of this encounter Visit Diagnoses Not on filein this encounter"
--- OUTSIDE RECORDS SUMMARY | ~2018-09-05 | XMS | Encounter Summary ---
Demographics + + + | Address | [address] | | | [place] [address] | + + + | Home Phone [...] [place] | | | | | [address] | | + + + + + Care Team Providers + +------+ + | Care Flatwork Finisher Name | Role | Phone | [...] | Procedural Unit at | MD Anil [address] | | | | | [place] [address] | [address] | | | | | [address] | [place], [place] | | | | | Road Mailcode: | [address] | | | | | [address] | [phone] | | | | | [address] | | | | | | [place], [place] | | | | | | [address] | | | | | | [phone] | | | +--------+ + + + [...] No; | Tresa Devlin RN | Sandy Zahng RN | | IV | Positive; 04/10/17; [...]
--- OUTSIDE RECORDS SUMMARY | ~2018-09-05 | XMS | Encounter Summary ---
Demographics + + + | Address | [address] | | | [place] [address] | + + + | Home Phone [...] [place] | | | | | [address] | | + + + + + Care Team Providers + +------+ + | Care Tuber Operator Name | Role | Phone | [...] (Epilepsy | | 2016 | on | [facility] & | [address] | monitoring unit | | | | Healing [address] | [place], [place] | discharge letter) | | | | [address] Mail Code: | [address] | | | | | [facility] | [phone] | | | | | Health and Healing, | | | | | | 8th [facility], | | | | | | [place] [address] | | | | | | [phone] | | | +--------+ + + + [...]
--- OUTSIDE RECORDS SUMMARY | ~2018-09-05 | XMS | Encounter Summary ---
Demographics + + + | Address | [address] | | | [place] [address] | + + + | Home Phone [...] [place] | | | | | [address] | | + + + + + Care Team Providers + +------+ + | Care Switchboard And Control Room Operator Name | Role | [...] Mailcode: | | | | | | [address] | | | | | | [facility] | | | | | | [place], [place] | | | | | | [address] | | | | | | [phone] | | | +--------+ + + + [...]
--- OUTSIDE RECORDS SUMMARY | ~2018-09-05 | XMS | Encounter Summary ---
Demographics + + + | Address | [address] | | | [place] [address] | + + + | Home Phone [...] + + + | Author | [facility] | + + + | Organization | [facility] | + + + | Address | Unknown | + + + | Phone | Unavailable | + + + Support + + + + + | Name | Relationship | Address | Phone | + + + + + | Christy Flaherty | ECON | [address] | | | | | [place] | | | | | [address] | | + + + + + Care Team Providers + +------+ + | Care Specimen Collector Name | Role | Phone | + [...] | | | | | Elevated | [place], [place] | Health and | | | | | lipase | [address] | Healing, | | | | | Procedures | Phone: | Building 2 | | | | | CONSULT TO | [phone] | [place], [place] | | | | | GASTROENTERO | Fax: | [address] | | | | | [address] | [phone] | Phone: | | | | | | | [phone] | | | | | | | Fax: | | | | | | | [phone] | +--------+--------+ + + + + Encounter [...] | | | | Mailcode: Center | [place], [place] | | | | | for Health and | [address] | | | | | [facility], [facility] 2 | [phone] | | | | | [place], [place] | | | | | | [address] | | | | | | [phone] | | | +--------+---------+ + + + [...] might be different fro m the original. [facility] Patient Name: Daysi Flaherty MR#: [id number] : 1965 This is a 52 y/o [...] 6 week with no resolution. He has Grainger 1 stools. He is non-smoker (ex-smoker) and [...] upon disco ntinue. Meloxicam Diarrhea Bowel incontinence Davwbbi-Bfv-Noq Reductase Inhibitors Seizures Increased frequency of seizures, [...]
--- OUTSIDE RECORDS SUMMARY | ~2018-09-05 | XMS | Encounter Summary ---
Demographics + + + | Address | [address] | | | [place] [address] | + + + | Home Phone [...] [place] | | | | | [address] | | + + + + + Care Team Providers + +------+ + | Care Walking Dragline Oiler Name | Role | Phone | [...] Test Results | | 2017 | | [place] at [facility] [address] | [address] | | | | | [address] | [address] | | | | | Mailcode: [place] | [place], [place] | | | | | for Health and | [address] | | | | | [facility] 2 | [phone] | | | | | [place], [place] | | | | | | [address] | | | | | | [phone] | | | +--------+ + + + [...]
--- OUTSIDE RECORDS SUMMARY | ~2018-09-05 | XMS | Encounter Summary ---
Demographics + + + | Address | [address] | | | [place] [address] | + + + | Home Phone [...] [place] | | | | | [address] | | + + + + + Care Team Providers + +------+ + | Care Flight Teacher Name | Role | Phone | [...] | | | [address] | [address] | | | | | Mailcode: Center | [place], [place] | | | | | for Health and | [address] | | | | | [place] [address] | [phone] | | | | | [place], [place] | | | | | | [address] | | | | | | [phone] | | | +--------+ + + + [...]
--- OUTSIDE RECORDS SUMMARY | ~2018-09-05 | XMS | Encounter Summary ---
Demographics + + + | Address | [address] | | | [place] [address] | + + + | Home Phone | | + + + | Preferred Language | Unknown | + + + | Marital Status | | + + + | Islam Affiliation | ASG | + + + | Race | White | + + + | Ethnic Group | Not or | + + + Author + + + | Author | [facility] | + + + | Organization | [facility] | + + + | Address | Unknown | + + + | Phone | Unavailable | + + + Support + + + + + | Name | Relationship | Address | Phone | + + + + + | Christy Flaherty | ECON | [address] | | | | | [place] | | | | | [address] | | + + + + + Care Team Providers + +------+ + | Care Pharmacy Retail Support Specialist Name | Role | Phone | [...] | | pain | [address] | [place] for | | | | | Elevated | [place], [place] | Health and | | | | | lipase | [address] | Healing, | | | | | Procedures | Phone: | Building 2 | | | | | CONSULT TO | [phone] | [facility] [place] | | | | | GASTROENTERO | Fax: | [address] | | | | | [place] | [phone] | Phone: | | | | | | | [phone] | | | | | | | Fax: | | | | | | | [phone] | +--------+--------+ + + + + Diagnostic [...] | | | | [address] IV | [place], [place] | for Health | | | | | [place] | [address] | and Healing, | | | | | CT SCAN OF | Phone: | 3rd Floor | | | | | ABDOMEN | [phone] | [place], [place] | | | | | COMBO | Fax: | [address] | | | | | | [phone] | Phone: | | | | | | | [phone] | | | | | | | Fax: | | | | | | | [phone] | +--------+--------+ + + + + Encounter Details +--------+ + + + + | Date | Type | Department | Care Team | Description | +--------+ + + + + | 02/24/ | Auto Former Machine Operator | Endoscopic | Paras Baker | Pancreatic mass | | 2017 | | Procedural Unit at | MD Ania [address] | (Primary Dx); | | | | [place] [address] | [address] | Epigastric pain; | | | | [address] | [place], [place] | Elevated lipase | | | | Road Mailcode: | [address] | | | | | [address] [place] | [phone] | | | | | [address] | | | | | | [place], [place] | | | | | | [address] | | | | | | [phone] | | | +--------+ + + + [...] Note | + + | Service Account, CapableBits Res In Interface - 03/11/2017 12:43 PM [...] Note | + + | Service Account, [employer] In Interface - 02/25/2017 5:25 PM PST [...]
--- OUTSIDE RECORDS SUMMARY | ~2018-09-05 | XMS | Encounter Summary ---
Demographics + + + | Address | [address] | | | [place] [address] | + + + | Home Phone [...] [place] | | | | | [address] | | + + + + + Care Team Providers + +------+ + | Care Division Traffic Superintendent Name | Role | Phone | [...] (Epilepsy | | 2016 | on | [facility] & | [address] | monitoring unit | | | | Healing [address] | [place], [place] | discharge letter) | | | | [address] Mail Code: | [address] | | | | | [facility] | [phone] | | | | | Health and Healing, | | | | | | 8th [facility], | | | | | | [place] [address] | | | | | | [phone] | | | +--------+ + + + [...]
--- OUTSIDE RECORDS SUMMARY | ~2018-09-05 | XMS | Encounter Summary ---
Demographics + + + | Address | [address] | | | [place] [address] | + + + | Home Phone | | + + + | Preferred Language | Unknown | + + + | Marital Status | | + + + | Congregational Affiliation | 1061 | + + + | Race | Unknown | + + + | Ethnic Group | Unknown | + + + Author + + + | Author | [facility] | + + + | Organization | [facility] | + + + | Address | Unknown | + + + | Phone | Unavailable | + + + Support + + + + + | Name | Relationship | Address | Phone | + + + + + | Christy Grande | ECON | [address] | | | | | [place] | | | | | [address] | | + + + + + Care Team Providers + +------+ + | Care Prepleater Name | Role | Phone | + [...] | 2019 | Procedure | ECHO | [address] [facility] | insufficiency, | | | | | [address] | etiology of cardiac | | | | | [place] [address] | valve disease | | | | | [phone] | unspecified; Seizure | | | | [...] | | | | | [place] [address] | | | | | | [phone] | | | | | | | [...] | | | function. 4. There is owan-cd-kpwditvi aortic regurgitation. 5. In | | | comparison to the previous echocardiographic study, done 07/20/16, only | | | minor changes are noted, as reported below. | | + + + + + + | Narrative | Performed At | + + + | Patient Name: DAYSI GRANDE Date of : 1965 | [facility] | | Performing Physician: Sarthak Lucia | [...] function. 4. There | | | is rfwi-dh-pwnkeibe aortic regurgitation. 5. In comparison to the [...] Aortic Valve: There is | | | rvzd-ck-zgxgqeey aortic regurgitation, decreased from moderate AI on [...] MV A George: 0.45 m/s MV Dec Weakley: 2.84 m/s2 | | | MV DecT: [...] RV | | | s': 0.09 m/s Skip Load Driver: COURT Authenticated by: Sarthak Busby | | | Khari Report Date/Time: 08-03-2018 19:45:5 | | + + + + + | Procedure Note | + + | Mohit Underwood Results In - 08/03/2018 7:50 PM PDT Patient Name: IRWIN GRANDESerena of | | : 1965Accession: [id number] Physician: Sarthak Busby | | Lehr INDICATIONS | | -HX OF AORTIC INSUFFICIENCY, ENDOCARDITIS, POST OP GALLBLADDERCONCLUSIONS 1. | | This was a technically difficult study with suboptimal views.2. Overall left ventricular | | systolic function is low-normal with an EF between 50 - 55 %.3. The right ventricle is | | normal in size and function.4. There is bmvo-tg-bknzgbvw aortic regurgitation. 5. In | | comparison [...] a previous KRAIG. Aortic Valve: There is bhfe-ps-cpxqjocu | | aortic regurgitation, decreased from moderate [...] | 5.55 cmLVPWd: 0.78 cmLVOT Area: 3.90 bq4EDYI Diam: 2.22 cm%FS: 21.16 %EF(Teich): | | 42.51 %ESV(Teich): 86.63 mlLVIDs: 4.37 cmSV(Teich): 64.06 mlRV Major: 8.82 | | cmRV Minor: 3.15 cmLVEF MOD A4C: 57.64 %SV MOD A4C: 113.24 mlLVEDV MOD A4C: | | 196.46 mlLVLd A4C: 9.01 cmLVESV MOD A4C: 83.21 mlLVLs A4C: 8.29 cmLAESV(A-L): | | 48.21 mlLAESV Index (A-L): 20.96 ml/m2LAAs A2C: 16.67 za4DKRXX A-L A2C: 52.96 | | mlLALs A2C: 4.45 cmLAAs A4C: 15.18 df3VQXSR A-L A4C: 41.97 mlLALs A4C: 4.66 | | cmRAAs: 11.25 kq7VEGAX A-L: 24.67 mlRAESV MOD: 24.34 mlRALs: 4.35 cmTAPSE: | | 2.25 cmAV maxP.73 mmHgAV meanP.49 mmHgAV Vmax: 1.78 m/Stormy Vmean: 1.19 | | m/Stormy VTI: 38.51 cmAVA Vmax: 1.78 cm2AVA (VTI): 2.07 yw5LWPY (Vmax): 0.00 | | cm2/m2AVAI (VTI): 0.00 cm2/m2LVOT maxP.67 mmHgLVOT meanP.41 mmHgLVSI Dopp: | | 34.67 ml/m2LVSV Dopp: 79.74 mlLVOT Vmax: 0.81 m/sLVOT Vmean: 0.56 m/sLVOT VTI: | | 20.44 cmMV A George: 0.45 m/sMV Dec Weakley: 2.84 m/s2MV DecT: 216.66 msMV E George: | | 0.61 m/sMV E/A Ratio: 1.36 MV PHT: 62.83 msMVA By PHT: 3.50 lj8Puiuzl e': 0.06 | | m/sSeptal E/e': 8.91 [...] size and function.4. | | There is agch-dx-mwljzcvm aortic regurgitation. 5. In comparison to the [...] A George: 0.45 m/s | |MV Dec Weakley: 2.84 m/s2 | |MV DecT: 216.66 ms [...] |RV s': 0.09 m/s | | | |Skip Load Driver: DBS | |Authenticated by: Sarthak Lucia | |Report Date/Time: 08-03-2018 19:45:5 | | | |IMPRESSION: | |1. This was a technically difficult study with suboptimal views. | |2. Overall left ventricular systolic function is low-normal with an EF between 50 - 55 %. | |3. The right ventricle is normal in size and function. | |4. There is ocpe-il-oktacgna aortic regurgitation. 5. In comparison to the previous echocar diographic study, done 07/20/16, only minor changes are noted, as reported below. | + + + + + + + | Performing | Address | City/State/Zipcode | Phone Number | | Organization | | | | + + + + + | [facility] | [address] | [place] [address] | | + + + + + in this encounter Visit Diagnoses + + | Diagnosis | + + | Aortic valve insufficiency, etiology of cardiac valve disease unspecified | + + | Seizure (HCC) | + + | Other convulsions | + +"
--- OUTSIDE RECORDS SUMMARY | ~2018-09-05 | XMS | Encounter Summary ---
Demographics + + + | Address | [address] | | | [place] [address] | + + + | Home Phone [...] + + + | Author | [facility] | + + + | Organization | [facility] | + + + | Address | Unknown | + + + | Phone | Unavailable | + + + Support + + + + + | Name | Relationship | Address | Phone | + + + + + | Christy Flaherty | ECON | [address] | | | | | [place] | | | | | [address] | | + + + + + Care Team Providers + +------+ + | Care Pony Trimmer Name | Role | Phone | [...] [address] | | | | | | [facility] | | | | | | Mailcode: [address] | | | | | | [address] | | | | | | [address] [place], [place] | | | | | | [address] | | | | | | [phone] | | | +--------+ + + + [...] it is after office hours, call the [facility] railroad signal and switch operator at [phone] and ask them to page your doc tor. documented in this encounter Plan of Treatment Not on filedocumented as of this encounter Visit Diagnoses Not on filedocumented in this encounter"
--- OUTSIDE RECORDS SUMMARY | ~2018-09-05 | XMS | Encounter Summary ---
Demographics + + + | Address | [address] | | | [place] [address] | + + + | Home Phone [...] [place] | | | | | [address] | | + + + + + Care Team Providers + +------+ + | Care Lean Manager Name | Role | Phone | [...] + + | 04/09/ | Hospital | [place] [address] | Taiwo Tilley, | | | 2018 - | Encounter | [address] | [facility] [address] | | | | | [facility] | [facility] | | | 04/10/ | | HOSPITAL [place], | [place], [place] | | | 2017 | | [place] [address] | [address] | | | | | [phone] | [phone] | | | | | | | | | | | | Laurence Barboza MD | | | | | | [address] | | | | | | [facility] [address] | | | | | | [place], [place] | | | | | | [address] | | | | | | [phone] | | | | | | | | | | | | Amado Roger, | | | | | | [address] | | | | | | [address] | | | | | | [place], [place] | | | | | | [address] | | | | | | [phone] | | | | | | | [...] Roger MD - 04/10/2017 7:24 AM PST [facility] Discharge Summary Discharging Provider: Amado Roger MD Discharging Attending Physician: Amado Roger MD PCP: Filippo Chen DO Admission Date: 04/09/2017 Discharge Date: 04/10/17 Hospital Stay: 1 day(s) Reason for Admission: 51 yo man with hx of obesity, seizures, VIKTORIA on BiPAP who has had 6 months of abdominal pain , weight loss (30 lbs), dysphagia/sore throat who was referred to [facility] for ERCP and under went EUS [...] upon disco ntinue. Meloxicam Diarrhea Bowel incontinence Fbdngeu-Rnm-Uhk Reductase Inhibitors Seizures Increased frequency of seizures, [...] focal neuro deficits Amado Roger MD, MSc B Operatorplating engineer Clinical Hospitalist and Medicine Teaching Services [facility] Pager: [phone] documented in this encounter Discharge Instructions Instructions [...] hours or on weekends and holiday Hospital Slate Roofer Helper toll free [phone]. [phone] and have the GI doctor insulation sprayer paged. The provider who performed your procedure: [...] + +--------+ + + + | NON VICE PRESIDENT OF COMPLIANCE CYTOLOGY | Routin | 04/09/2017 | | [...] + | MRN: | [facility] | | [id number] Date: 04/09/2017Patient Name: Daysi Cook #: | ENDOSCOPY | | [id number] of : 1965CSN: [id number] Type: | | | AmbulatoryRoom: GI 3Procedure: Upper | | | EUSIndications: Abnormal ultrasound of the | | | abdomenProviders: TAIWO TILLEY MD (Doctor), | | | LUIS A MAYES RN (Nurse), | | | JYOTI RODRIGUEZ Yield Improvement Engineer (Yield Improvement Engineer)Referring | | | MD: TAIWO TILLEY MDRequesting [...] | procedure. The Olympus | | | [id number] Linear Echoendoscope #[id number] | | | was introduced through the | | | mouth, and advanced to the | | | second part of duodenum. The Olympus [id number] Endoscope | | | #[id number] was introduced | | | through the [...] stylet was used. A | | | braille teacher was present and performed a preliminary cytologic [...] | | | Initiated On: 04/09/2017 1:07 [facility] Letter to: FILIPPO CHEN, | | | DO | | + + + + +---------+ + + | Performing | Address | City/State/[facility] | Phone Number | | Organization | | | | + +---------+ + + | [facility] | | | | + +---------+ + + NON VICE PRESIDENT OF COMPLIANCE CYTOLOGY (04/09/2017) + + + + + + | Component | Value | Ref Range | Performed | Pathologist | | | | | At | Signature | + + + + + + | NON-VICE PRESIDENT OF COMPLIANCE | SOURCE OF SPECIMEN:A | | [facility] [...] | + + + + + | [facility] | [address] | [place] [address] | | | PATHOLOGY | [address] [...] medicalrecord | | | | | | #[id number]. A. | | | | | | [...] | + + + + + | [facility] | [address] | [place] [address] | | | PATHOLOGY | [address] [...]
--- OUTSIDE RECORDS SUMMARY | ~2018-09-05 | XMS | Encounter Summary ---
Demographics + + + | Address | [address] | | | [place] [address] | + + + | Home Phone [...] [place] | | | | | [address] | | + + + + + Care Team Providers + +------+ + | Care Orange Peel Operator Name | Role | Phone | [...] | | AMBULATORY [address] | [facility] [address] [facility] | consultation | | | | [address] | [facility] | | | | | Road Mailcode: CH6A | [place], [place] | | | | | [place], [place] | [address] | | | | | [address] | [phone] | | | | | [phone] | | | +--------+ + + + [...]
--- OUTSIDE RECORDS SUMMARY | ~2018-09-05 | XMS | Encounter Summary ---
Demographics + + + | Address | [address] | | | [place] [address] | + + + | Home Phone [...] [place] | | | | | [address] | | + + + + + Care Team Providers + +------+ + | Care [employer] Associate Name | Role | Phone | [...] | | | | | [address] [facility] | [address] | | | | | [address] Mailcode: | | | | | | [address] | | | | | | [address] | | | | | | [place], [place] | | | | | | [address] | | | | | | [phone] | | | +--------+ + + + [...]
--- OUTSIDE RECORDS SUMMARY | ~2018-09-05 | XMS | Encounter Summary ---
Demographics + + + | Address | [address] | | | [place] [address] | + + + | Home Phone [...] [place] | | | | | [address] | | + + + + + Care Team Providers + +------+ + | Care Puppet Engineer Name | Role | Phone | [...] | Hospital | [facility] [address]D [address] | Carla Chicas MD | | | 2016 - | Encounter | [address] | [address] | | | | | [address] [place] | Jerome Kuhn [place], | | | 12/22/ | | [facility] 10D | [place] [address] | | | 2015 | | [place], [place] | [phone] | | | | | [address] | | | | | | [phone] | Anthony De La O MD | | | | | | [address] | | | | | | [place], [place] | | | | | | [address] | | | | | | [phone] | | | | | | | [...] attending physician. If you have access to [facility] [employer] this letter will be available in the Encounters tab labeled "Other-EMU Discharge Summary" s hortly after the patient's discharge. Reason for Admission: Daysi Flaherty is a 50 y.o. male admitted for diagnostic 24-hour video EEG monitoring in the [facility] Comprehensive Epilepsy Monitoring Unit. Hospital Course: [...] We treated the patient's tooth pain with [place], magic mouthwash, Tylenol. We treated constipation with [...] was unremarkable. Daysi Flaherty Home Medication Instructions ENDER:[id number] Printed on:12/23/15 1027 Medication Information acetaminophen 325 [...] 25 mg 25 mg oral Q6H PRN vicqmdmmmiVNRYX-zfiprshsj-PWFFGV (SPECIAL MOUTHWASH) suspension (compound) 5-10 mL 5-1 [...] Details have been entered in a separate [facility] clinical neurophysiology procedure report. Assessment/Plan (by [...] to his being on valproate 3. Continue [place] for pain. 4. Telemetry monitoring given cardiac [...] reviewing the EEG record. Marita Hernandez MD,MPH Acoustical Tile Drill Press Operator, Epilepsy Specialist [facility] Department of Neurology [facility] DEPARTMENT: Neurology Epilepsy Attending - [id number] Place of Service: Date of Service: 12/23/2015 CSN: [id number] Suggested Modifier: GC - Resident Present Suggested EEG CPT: 03339 - EEG Video, (12 - 24 hours) Suggested E/M and Procedure CPT: 49160 - Hospital Discharge, >30 minutes Suggested Diagnosis: [...] 25 mg 25 mg oral Q6H PRN elgeaxxcqdQXHLB-ifdyafewc-ZSWLRG (SPECIAL MOUTHWASH) suspension (compound) 5-10 mL 5-1 [...] to his being on valproate 3. Continue [place] for pain. 4. Telemetry monitoring given cardiac [...] time spent reviewing the EEG re cord. [facility] DEPARTMENT: Neurology Epilepsy Attending - [id number] Place of Service: - Date of Service: 12/22/15 [facility]: [phone] Suggested Modifier: 25 - Separate E/M service performed by provider (or other marketing team lead) on same day as procedure Suggested EEG CPT: 24806 - EEG Video, (12 - 24 hours) Suggested E/M and Procedure CPT: 56679 - Low complexity, (15 minutes >50% counseling [...] and has seen a sleep specialist in [place] who feels he has a high probabil [...] 25 mg 25 mg oral Q6H PRN qrtguhprjlQFTFN-mgwfsudez-MBQIUU (SPECIAL MOUTHWASH) suspension (compound) 5-10 mL 5-1 [...] bid esteban nued outpt dosage 3. Continue [place] for pain. 4. Telemetry monitoring given cardiac [...] record. 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 His personal leaning is to [...] 4. Continue other home meds 5. Continue [place] for pain. 6. Telemetry monitoring given cardiac history and h/o GTCs 7. Neuropsych testing as an outpatient 8. He was going to have LTG started in August however his pharmacy never filled the rx. His n eurologist here at [facility] had then moved so it was [...] Electronically signed Anthony De La O MD. 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 Continue other home meds 5. Continue [place] for pain. 6. Telemetry monitoring given cardiac history and h/o GTCs 7. Neuropsych testing as an outpatient 8. He was going to have LTG started in August however his pharmacy never filled the rx. His n eurologist here at [facility] had then moved so it was [...] Electronically signed Anthony De La O MD. 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 Continue other home meds 5. Continue [place] for pain. 6. Telemetry monitoring given cardiac history and h/o GTCs 7. neuropsych testing as an outpatient 8. He was going to have LTG started in August however his pharmacy never filled the rx. His n eurologist here at [facility] had then moved so it was [...] Electronically signed Anthony De La O MD. [facility] DEPARTMENT: Neurology Epilepsy Attending - [id number] Place of Service: - Date of Service: 12/18/15 CSN: [id number] Suggested Modifier: 25 - Separate E/M service performed by provider (or other marketing team lead) on same day as procedure Suggested EEG CPT: 75343 - EEG Video, (12 - 24 hours) Suggested E/M and Procedure CPT: 69692 - Moderate complexity, (25 minutes >50% counseling [...] | Date of Test: 12/22/2015 Place | [facility], | | of Service: [facility] [phone] [facility] Department: EEG [facility] - | POINT OF CARE | | [phone] TILE PICKER VIDEO EEG Start Date/Time: 12/22/15 | TESTS | | End Date/Time: 12/23/15 Telemetry Number: [id number] Please refer to | | | the cumulative mcfp EEG report from the first day of this | | | recording period for results. | | + + + + + + + + | Performing | Address | City/State/Zipcode | Phone Number | | Organization | | | | + + + + + | [facility] | [address] | [place], [place] | | | P[place] OF [facility] | [address] | [address] | | | TESTS | | | [...] + + + | X-RAY | EXAM: ND CHEST 1 VIEW | | | | [...] | | + +---------+ + + | [facility] DEPARTMENT OF | | | | | RADIOLOGY | | | | + +---------+ + + EEG CONTINUOUS, ADULT (12/21/2015) + + + | Narrative | Performed At | + + + | Patient Name: Daysi Flaherty Date of : 1965 | [facility] - | | Date of Test: 12/21/2015 Place | [facility], | | of Service: [facility] [phone] - [phone] [facility] Department: EEG [facility] - | POINT OF CARE | | [phone] CUSTODIAL VIDEO EEG Start Date/Time: 12/21/15 | TESTS | | End Date/Time: 12/22/15 Telemetry Number: [id number] Please refer to | | | the cumulative mcfp EEG report from the first day of this | | | recording period for results. | | + + + + + + + + | Performing | Address | City/State/Zipcode | Phone Number | | Organization | | | | + + + + + | [facility] | [address] | [place], [place] | | | P[facility] OF [facility] | [address] | [address] | | | TESTS | | | [...] | ALICIA MEJ[place]A, | | of Service: [facility] [phone] - [phone] [facility] Department: EEG [facility] - | POINT OF CARE | | [phone] TILE PICKER VIDEO EEG Start | TESTS | | Date/Time: 12/20/2015 7:02 End Date/Time: 12/21/2015 Telemetry | | | Number: [id number] Please refer to the cumulative roasterman EEG | | | report from the first day of this recording period for results. | | | | | + + + + + + + + | Performing | Address | City/State/Zipcode | Phone Number | | Organization | | | | + + + + + | [facility] | [address] | [place], [place] | | | [place] OF [facility] | [address] | [phone] | | | TESTS | | | [...] | Date of Test: 12/19/2015 Place | [facility], | | of Service: [facility] [phone] - [phone] [facility] Department: EEG [facility] - | POINT OF CARE | | [phone] TILE PICKER VIDEO EEG Start Date/Time: | TESTS | | 12/19/15 End Date/Time: 12/20/15 Telemetry Number: [id number] | | | Please refer to the cumulative mcfp EEG report from the first | | | day of this recording period for results. | | | | | + + + + + + + + | Performing | Address | City/State/Zipcode | Phone Number | | Organization | | | | + + + + + | [facility] | [address] | [place], [place] | | | [place] OF [facility] | [address] | [phone] | | | TESTS | | | [...] | Date of Test: 12/18/2015 Place | [facility], | | of Service: [facility] [phone] - [phone] [facility] Department: EEG [facility] - | POINT OF CARE | | [phone] CUSTODIAL VIDEO EEG Start | TESTS | | Date/Time: 12/18/2015 End Date/Time: 12/19/2015 Telemetry | | | Number: [id number] Please refer to the cumulative mcfp EEG | | | report from the first day of this recording period for results. | | | | | + + + + + + + + | Performing | Address | City/State/Zipcode | Phone Number | | Organization | | | | + + + + + | [facility] | [address] | [place], [place] | | | [place] [facility] | [address] | [address] | | | TESTS | | | [...] | ALICIA MEJÍA, | | of Service: [facility] [phone] - [facility] Department: EEG [facility] - | POINT OF CARE | | [phone] CUSTODIAL VIDEO EEG Start | TESTS | | Date/Time: 12/17/2015 End Date/Time: 12/23/2015 Telemetry | | | Number: [id number] Last Name: | | | Krystina First Name: Daysi Record #[id number] | | | ==== Admission Information ==== [...] + + + | [facility] | [address] | [place], [place] | | | [place] [facility] | [address] | [phone] | | | TESTS | | | | + + + + + EEG ROUTINE (12/17/2015) + + + | Narrative | Performed At | + + + | Patient Name: Daysi Flaherty Date of : 1965 | [facility] - | | Date of Test: 12/17/2015 Place | [facility], | | of Service: [facility] [phone] - [facility] Department: EEG [facility] - | POINT OF CARE | | [phone] ROUTINE EEG History: 50-year-old man with history [...] oral, DAILY, Amador Mayorga, | | | BIOFUELS MANAGER HYDROcodone-acetaminophen (NORCO) 10-325 mg 1 tablet, [...] + + + | [facility] | [address] | [place], [place] | | | [facility] [place] [facility] | [address] | [phone] | | | TESTS | | | [...] | 10 mL | | | | njydlucrceBSSKE-phgerujdp-MVRDAG | | 16 10:42 | | | | | (SPECIAL MOUTHWASH) suspension | | AM PDT | | | | | (compound) 5-10 mL 5-10 mL, | | | | | | | oral, FOUR TIMES DAILY NEEDED, | | | | | | | Starting [facility] 12/19/15 at 0210, | | | | [...]
--- OUTSIDE RECORDS SUMMARY | 2018-09-05 16:50 | XMS ---
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 Security Digital Product Specialist Events No recent Security Events currently on file CRITERIA MET - [facility] - 2 Visits in 30 Days CARE PROVIDERS There are no care providers on record at this time. Maria Elena has no Care Guidelines for this patient. [facility] (12 MO.) [facility] T[facility] 6 NOTE: Visits indicate total known visits. ED[facility] [place] (12 MO.) 09/05/2018 16:[address] [facility] [place] TYPE: Emergency COMPLAINT: - LEFT HAND LACERATION/INJURY 08/31/2018 11:27 [facility] [place] TYPE: Emergency COMPLAINT: - POSS POST OP PROBLEM DIAGNOSES: - Pure hypercholesterolemia, unspecified - Allergy status to other drugs, medicaments and biological substances status - Acquired absence of other specified parts of digestive tract - Epilepsy, unspecified, not intractable, without status epilepticus - Other chest pain - Radiographic dye allergy status - Other exterminator helper (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 03/08/2018 10:24 [facility] [place] TYPE: Emergency COMPLAINT: - L HAND LAC/INJURY DIAGNOSES: - Laceration without foreign body of left thumb without damage to nail, initial encounter - Allergy status to other drugs, medicaments and biological substances status - Other [facility] (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 - Epilepsy, unspecified, not intractable, without status epilepticus - Contact with other specified machinery, initial encounter - Migraine, unspecified, not intractable, without status migrainosus - Pure hypercholesterolemia, unspecified 01/17/2018 23:35 [facility] [place] TYPE: Emergency COMPLAINT: - RECTAL BLEEDING DIAGNOSES: - Hemorrhage of anus and rectum - Other [facility] (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 - Allergy status to other drugs, medicaments and biological substances status - Unspecified abdominal pain - Pure hypercholesterolemia, unspecified - Other chronic pain - Migraine, unspecified, not intractable, without status migrainosus 12/10/2017 21:30 [facility] [place] TYPE: Emergency COMPLAINT: - POSS STREP THROAT DIAGNOSES: - Epilepsy, unspecified, not intractable, without status epilepticus - Allergy status to analgesic agent status - Other [facility] (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 - Acute pharyngitis, unspecified 10/06/2017 14:[address] [facility] [place] TYPE: Emergency COMPLAINT: - BEE STING/EXTREMITY SWELLING DIAGNOSES: - PURE HYPERCHOLESTEROLEMIA, UNSPECIFIED - Epilepsy, unspecified, not intractable, without status epilepticus - Other [facility] (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 - Bitten or stung by nonvenomous insect and other nonvenomous arthropods, initial encounter - Migraine, unspecified, not intractable, without status migrainosus - Insect bite (nonvenomous), left ankle, initial encounter - Pure hypercholesterolemia, unspecified INPATIENT VISIT TRACKING (12 MO.) 08/03/2018 14:00 [facility] [place] TYPE: Observation COMPLAINT: - LAP ELOISE W/IOC DIAGNOSES: - Disorder of brain, unspecified - Epileptic seizures related to external causes, not intractable, without status epilepticus - Vitamin D deficiency, unspecified - Altered mental status, unspecified - Other [facility] (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 - Allergy status to other drugs, medicaments and biological substances status - Chronic cholecystitis - Radiographic dye allergy status - Chronic pain syndrome - Arthropathic psoriasis, unspecified - Nonrheumatic aortic (valve) insufficiency - Hyperlipidemia, unspecified [email or web address]
[2018-09-05] MEDS ORDERED: NORCO 5-325 TA1 EACH PO (17:41)
[2018-09-05] MEDS ORDERED: KEFLEX500 MG PO (17:41)
== END 2018-09-05 18:24 | disposition home or self-care (01) ==
LOC: ED 16:47
PROC: 0HQQXZZ Repair Finger Nail, External Approach (ICD-10-PCS; principal; 2018-09-05)
DX: S61.112A Laceration without foreign body of left thumb with damage to nail, initial encounter (principal); Z90.49 Acquired absence of other specified parts of digestive tract; Z88.8 Allergy status to other drugs, medicaments and biological substances; Z91.041 Radiographic dye allergy status; Z79.899 Other long term (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; W23.0XXA Caught, crushed, jammed, or pinched between moving objects, initial encounter
CPT/HCPCS: 11760; 73140; 90471; 90715; 99283-25

== ENCOUNTER 2019-03-11 05:00 | Emergency (ER) | payer OTHER ==
[~2019-03-11] VITALS: Ht 177.8 cm; Wt 104.3 kg
--- OUTSIDE RECORDS SUMMARY | ~2019-03-11 | XMS | Encounter Summary ---
Demographics + + + | Address | [address] | | | [place] [address] | + + + | Home Phone | | + + + | Preferred Language | Unknown | + + + | Marital Status | | + + + | Tenriism Affiliation | [id number] | + + + | Race | Unknown | + + + | Ethnic Group | Unknown | + + + Author + + + | Author | [facility] | | | and [place] | + + + | Organization | [facility] | | | and [place] | + + + | Address | Unknown | + + + | Phone | Unavailable | + + + Support + + + + + | Name | Relationship | Address | Phone | + + + + + | Christy Flaherty | ECON | [address] | | | | | [place] | | | | | [address] | | + + + + + | Christy Flaherty | ECON | [address] | | | | | [place] | | | | | [address] | | + + + + + Care Team Providers + +------+ + | Care Roofing Sales Representative Name | Role | Phone | + +------+ + | Juan Demarco MD | PCP | | + +------+ + Encounter Details +--------+ + + + + | Date | Type | Department | Care Team | Description | +--------+ + + + + | 08/07/ | Transcribed | [facility] | Kimo Baum, | Convulsions, | | 2015 | Orders | [facility] | MD [address] | unspecified | | | | CENTER [address] | convulsion type | | | | [place], [place] | [place] [address] | ([facility]) (Primary Dx) | | | | [address] | [phone] | | | | | [phone] | | | +--------+ + + + + Social History + +-------+ +--------+------+ | Tobacco Use | Types | Packs/Day | Years | Date | | | | | Used | | + +-------+ +--------+------+ | Never Smoker | | | | | + +-------+ +--------+------+ + +------+---+---+ | Smokeless Tobacco: | Chew | | | | Current User | | | | + +------+---+---+ + + +---------+ + | Alcohol Use | Drinks/Week | oz/Week | Comments | + + +---------+ + | Not Asked | | | | + + +---------+ + + + + | Sex Assigned at | Date Recorded | | | | + + + | Not on file | | + + + + + + + | Job Start Date | Occupation | Industry | + + + + | Not on file | Not on file | Not on file | + + + + + + + + | Travel History | Travel Start | Travel End | + + + + + + | No recent travel history available. | + + documented as of this encounter Plan of Treatment Not on filedocumented as of this encounter Results EEG (08/13/2014 7:46 AM PDT) + + + | Narrative | Performed At | + + + | Butch Cosby MD 08/13/2014 7:46 [facility] | | Services ELECTROENCEPHALOGRAM PATIENT INFORMATION Patient name: | | | Daysi Flaherty Date of : | | | 1965 Referring Physician: Kimo Baum MD Interpreting | | | Physician: Butch Cosby Date/Time of Study: 08/10/14, 1100 | | | TECHNICAL INFORMATION EEG Number: [id number] Electrode Placement: The | | | electroencephalogram was recorded with a [employer] EEG | | | recording/reading station, using International 10/20 electrode | | | placement. The EEG was interpreted with bipolar and referential | | | montages. Protocol: This is a routine study performed via | | | continuous digital EEG monitoring with concomitant digital video. | | | Clinical History: This is a 49 y.o. male with a history of differing | | | potentially epileptic spells including a sensation of "slowing | | | down" in response to flickering lights. Medications: Current | | | outpatient prescriptions:mometasone (ELOCON) 0.1 % cream, , Disp: , | | | Rfl: ; pravastatin (PRAVACHOL) 80 MG tablet, , Disp: , Rfl: ; | | | valproic acid (DEPAKENE) 250 MG capsule, , Disp: , Rfl: | | | INTERPRETATION State: Awake and Drowsy Background: There is a/an 9 | | | Hz posteriorly dominant alpha rhythm that appears symmetric and | | | attenuates with eye-opening. Beta: Low amplitude fast activity is | | | maximal in bilateral fronto-central head regions, symmetric. Sleep: | | | Stage I sleep (drowsiness) is marked by attenuation of background | | | alpha activity, increasing theta frequencies, and vertex transients. | | | Sleep structures appear synchronous and symmetric. Photic | | | Stimulation: Stimulation at 6-30 Hz elicits a driving response | | | with 12 Hz stimulation, confined to the posterior head regions and | | | time-locked to the photic stimulus. Hyperventilation: Produces | | | generalized, mild intermittent slowing. Response to auditory | | | stimulation: Reactive. Response to tactile stimulation: Reactive. | | | Artifact: None. Normal variants: None. Nonepileptiform | | | abnormalities: 1. None. Epileptiform abnormalities: 1. None. | | | Seizures: 1. None CLASSIFICATION Normal IMPRESSION This EEG | | | during wakefulness and drowsiness is normal. There were no | | | epileptiform discharges, paroxysmal events or focal abnormalities | | | during the recording. A normal EEG does not exclude the potential | | | diagnosis of epilepsy. Clinical correlation recommended. | | | Electronically signed by: Butch Cosby, 08/13/2014 at 7:34 | | | CC:Kimo Baum MD | | + + + documented in this encounter Visit Diagnoses + + | Diagnosis | + + | Convulsions, unspecified convulsion type (HCC) - Primary | + + documented in this encounter
--- OUTSIDE RECORDS SUMMARY | ~2019-03-11 | XMS | Encounter Summary ---
Demographics + + + | Address | [address] | | | [place] [address] | + + + | Home Phone | | + + + | Preferred Language | Unknown | + + + | Marital Status | | + + + | Rastafari Affiliation | ASG | + + + | Race | White | + + + | Ethnic Group | Not or | + + + Author + + + | Author | [facility] | + + + | Organization | [facility] | + + + | Address | Unknown | + + + | Phone | Unavailable | + + + Support + + + + + | Name | Relationship | Address | Phone | + + + + + | Christy Flaherty | ECON | [address] | | | | | [place] | | | | | [address] | | + + + + + Care Team Providers + +------+ + | Care Project Coordinator Name | Role | Phone | + +------+ + | Filippo Chen DO | PCP | | + +------+ + Reason for Referral Diagnostic Testing (Routine) +--------+--------+ + + + + | Status | Reason | Specialty | Diagnoses / | Referred By | Referred To | | | | | Procedures | Contact | Contact | +--------+--------+ + + + + | Closed | | Radiology | Diagnoses | Jarek | [address] Scan | | | | | Recurrent | MD Taiwo | [address] | | | | | pancreatitis | [address] | [place] | | | | | Procedures | [facility] | Mailcode: | | | | | CT | Rd | [facility] | | | | | MULTIPHASE | [place], [place] | for Health | | | | | PANCREAS AND | [address] | and Healing, | | | | | PELVIS W IV | Phone: | [address], | | | | | CONTRAST | [phone] | 3rd Floor | | | | | [address] | Fax: | [place], [place] | | | | | ABD&PELV 1+ | [phone] | [address] | | | | | SECTION/REGN | | Phone: | | | | | S | | [phone] | | | | | | | Fax: | | | | | | | [phone] | +--------+--------+ + + + + Reason for Visit + + + | Reason | Comments | + + + | Lab findings, | | | teaching, guidance, | | | and counseling | | + + + Encounter Details +--------+ + + + + | Date | Type | Department | Care Team | Description | +--------+ + + + + | 04/23/ | Telephone | Digestive Health | Taiwo Tilley, | Lab findings, | | 2018 | | Center at [facility] [address] | [address] | teaching, guidance, | | | | [address] | [address] | and counseling | | | | Mailcode: Center | [place], [place] | | | | | [facility] and | [address] | | | | | [facility], [facility] [address] | [phone] | | | | | [place], [place] | | | | | | [address] | | | | | | [phone] | | | +--------+ + + + [...] Comments | + + +---------+ + | No | 0 Standard drinks | 0.0 | | | | or equivalent | | | + + +---------+ + [...] on filedocumented as of this encounter Results CT MULTIPHASE PANCREAS AND PELVIS W IV CONTRAST (07/29/2017 2:52 PM PDT) + + | Specimen | + + | | + + + + + | Narrative | Performed At | + + + | EXAM: Pancreas protocol CT of the abdomen with and without contrast. | [facility] | | CT of the pelvis with contrast. HISTORY: Chronic pancreatitis | RADIOLOGY VOICE | | changes. Negative for malignancy. COMPARISON: CT pancreatic | RECOGNITION | | protocol 03/11/2017. TECHNIQUE: Unenhanced, arterial, and portal | | | venous abdominal CT with non-ionic iodinated intravenous contrast. | | | CT of the pelvis in the portal phase. Coronal and sagittal reformats | | | were reviewed. FINDINGS: LOWER THORAX: Trace right basilar | | | atelectasis/pleural-parenchymal scarring. PANCREATICOBILIARY: The | | | pancreas is homogeneously enhancing. Question trace peripancreatic | | | stranding/fluid adjacent the pancreatic head, although improved | | | relative to prior study. No ductal dilatation is noted. LIVER: | | | Unremarkable. SPLEEN: Unremarkable. ADRENALS: Unremarkable. | | | KIDNEYS/URETERS: Left inferior pole simple cyst. GI TRACT: | | | Visualized portions are unremarkable. PERITONEUM: Unremarkable. | | | LYMPH NODES: Unremarkable. VESSELS: Unremarkable. BONES AND SOFT | | | TISSUES: No suspicious osseous lesions. IMPRESSION: Since | | | 03/11/2017, improved peripancreatic inflammatory changes, with | | | question of minimal residual stranding/fluid adjacent to the | | | pancreatic head. Pancreatic parenchyma is homogeneous without focal | | | lesion identified. I have personally reviewed the images and, | | | if necessary, edited the report. I agree with the report as now | | | presented. | | + + + + + | Procedure Note | + + | Service Account, Radiant Res In Interface - 07/29/2017 5:49 PM PDT EXAM: Pancreas | | protocol CT of the abdomen with and without contrast. CT of the pelvis with | | contrast.HISTORY: Chronic pancreatitis changes. Negative for malignancy.COMPARISON: CT | | pancreatic protocol 03/11/2017.TECHNIQUE: Unenhanced, arterial, and portal venous | | abdominal CT with non-ionic iodinated intravenous contrast. CT of the pelvis in the | | portal phase. Coronal and sagittal reformats were reviewed.FINDINGS:LOWER THORAX: Trace | | right basilar atelectasis/pleural-parenchymal scarring.PANCREATICOBILIARY: The pancreas | | is homogeneously enhancing. Question trace peripancreatic stranding/fluid adjacent the | | pancreatic head, although improved relative to prior study. No ductal dilatation is | | noted.LIVER: Unremarkable.SPLEEN: Unremarkable.ADRENALS: Unremarkable.KIDNEYS/URETERS: | | Left inferior pole simple cyst.GI TRACT: Visualized portions are | | unremarkable.PERITONEUM: Unremarkable.LYMPH NODES: Unremarkable.VESSELS: | | Unremarkable.BONES AND SOFT TISSUES: No suspicious osseous lesions.IMPRESSION:Since | | 03/11/2017, improved peripancreatic inflammatory changes, with question of minimal | | residual stranding/fluid adjacent to the pancreatic head. Pancreatic parenchyma is | | homogeneous without focal lesion identified.I have personally reviewed the images and, | | if necessary, edited the report. I agree with the report as now presented. | |KIDNEYS/URETERS: Left inferior pole simple cyst. | | | |GI TRACT: Visualized portions are unremarkable. | | | |PERITONEUM: Unremarkable. | |LYMPH NODES: Unremarkable. | |VESSELS: Unremarkable. | | | |BONES AND SOFT TISSUES: No suspicious osseous lesions. | | | | | |IMPRESSION: | | | |Since 03/11/2017, improved peripancreatic inflammatory changes, with question of minimal re sidual stranding/fluid adjacent to the pancreatic head. Pancreatic parenchyma is homogeneous without focal lesion identified. | | | | | |I have personally reviewed the images and, if necessary, edited the report. I agree with t he report as now presented. | + + + +---------+ + + | Performing | Address | City/State/Zipcode | Phone Number | | Organization | | | | + +---------+ + + | [facility] | | | | | VOICE RECOGNITION | | | | + +---------+ + + LAB OTHER (05/04/2017 1:20 PM PST) + + + + + + | Component | Value | Ref Range | Performed | Pathologist | | | | | At | Signature | + + + + + + | MISC REF | Chronic Pancreatitis | | [facility] | | | TEST NAME | Panel, Saliva | | REFERENCE | | | | | | LAB | | + + + + + + | MISC REF | Negative Comment: No | | [facility] | | | TEST RESULT | Pathogenic sequence | | REFERENCE | | | | variants or | | LAB | | | | deletions/duplications | | | | | | identified. | | | | + + + + + + | NORMAL | | | [facility] | | | RANGE | | | REFERENCE | | | | | | LAB | | + + + + + + | REFERRAL | Test Performed by | | [facility] | | | LAB NAME | [facility] | | REFERENCE | | | | [address] | | LAB | | | | [place] [address] | | | | | | | | | | + + + + + + + + | Specimen | + + | Saliva - Mouth | | region structure | | (body structure) | + + + + + | Narrative | Performed At | + + + | See scanned | [facility] | | report for Technical Results and further Interpretation and Comments. | REFERENCE LAB | | | | | | | + + + + + + + + | Performing | Address | City/State/Zipcode | Phone Number | | Organization | | | | + + + + + | [facility] | | | | + + + + + | [facility] | see below | | | + + + + + documented in this encounter Visit Diagnoses + + | Diagnosis | + + | Recurrent pancreatitis - Primary Chronic pancreatitis | + + | Constipation, unspecified constipation type | + + documented in this encounter"
--- OUTSIDE RECORDS SUMMARY | ~2019-03-11 | XMS | Encounter Summary ---
Demographics + + + | Address | [address] | | | [place] [address] | + + + | Home Phone | | + + + | Preferred Language | Unknown | + + + | Marital Status | | + + + | Shinto Affiliation | ASG | + + + | Race | White | + + + | Ethnic Group | Not or | + + + Author + + + | Organization | Unknown | + + + | Address | Unknown | + + + | Phone | Unavailable | + + + Support + + + + + | Name | Relationship | Address | Phone | + + + + + | Christy Flaherty | ECON | [address] | | | | | [place] | | | | | [address] | | + + + + + Care Team Providers + +------+ + | Care Core Cutter And Reamer Name | Role | Phone | + +------+ + | Jarvis Willard MD | PCP | | + +------+ + Encounter Details +--------+--------+ + + + | Date | Type | Department | Care Team | Description | +--------+--------+ + + + | 02/08/ | Travel | | | | | 2019 | | | | | +--------+--------+ + + + Social History + +-------+ +--------+------+ | Tobacco Use | Types | Packs/Day | Years | Date | | | | | Used | | + +-------+ +--------+------+ | Never Smoker | | | | | + +-------+ +--------+------+ + +------+---+--------+ | Smokeless Tobacco: | Chew | | Quit: | | Former User | | | 2009 | + +------+---+--------+ + + +---------+ + | Alcohol Use [...] Not on filedocumented as of this encounter Visit Diagnoses Not on filedocumented in this encounter"
--- OUTSIDE RECORDS SUMMARY | ~2019-03-11 | XMS | Encounter Summary ---
Demographics + + + | Address | [address] | | | [place] [address] | + + + | Home Phone | | + + + | Preferred Language | Unknown | + + + | Marital Status | | + + + | Quaker Affiliation | ASG | + + + | Race | White | + + + | Ethnic Group | Not or | + + + Author + + + | Author | [facility] | + + + | Organization | [facility] | + + + | Address | Unknown | + + + | Phone | Unavailable | + + + Support + + + + + | Name | Relationship | Address | Phone | + + + + + | Christy Flaherty | ECON | [address] | | | | | [place] | | | | | [address] | | + + + + + Care Team Providers + +------+ + | Care Wheel Truing Machine Tender Name | Role | Phone | + +------+ + | Filippo Chen DO | PCP | | + +------+ + Reason for Visit + + + | Reason | Comments | + + + | Outside Records | 02/24/2017 [facility] | | Received | | + + + Encounter Details +--------+ + + + + | Date | Type | Department | Care Team | Description | +--------+ + + + + | 03/01/ | Abstract | Digestive Health | Paras Baker | Outside Records | | 2017 | | Center at [facility] | MD Ania [address] | Received (02/24/2017 | | | | [address] | [address] | [place] | | | | Mailcode: Center | [place], [place] | [facility]) | | | | for Health and | [address] | | | | | [place] [address] | [phone] | | | | | [place], [place] | | | | | | [address] | | | | | | [phone] | | | +--------+ + + + [...]
--- OUTSIDE RECORDS SUMMARY | ~2019-03-11 | XMS | Encounter Summary ---
Demographics + + + | Address | [address] | | | [place] [address] | + + + | Home Phone | | + + + | Preferred Language | Unknown | + + + | Marital Status | | + + + | Latter-Day Affiliation | ASG | + + + | Race | White | + + + | Ethnic Group | Not or | + + + Author + + + | Author | [facility] | + + + | Organization | [facility] | + + + | Address | Unknown | + + + | Phone | Unavailable | + + + Support + + + + + | Name | Relationship | Address | Phone | + + + + + | Christy Flaherty | ECON | [address] | | | | | [place] | | | | | [address] | | + + + + + Care Team Providers + +------+ + | Care Lead Quality Technician Name | Role | Phone | + +------+ + | Filippo Chen DO | PCP | | + +------+ + Encounter Details +--------+ + + + + | Date | Type | Department | Care Team | Description | +--------+ + + + + | 12/16/ | Documentati | Neurology at | Amador Mayorga, | | | 2016 | on | [facility] & | WALL CLE[employer]ER [address] | | | | | Healing [address] | [address] | | | | | Hector Cabrera Mailcode: | [place], [place] | | | | | [facility] | [address] | | | | | Health and Healing, | [phone] | | | | | [facility] | | | | | | Floor [place], [place] | | | | | | [address] | | | | | | [phone] | | | +--------+ + + + [...]
--- OUTSIDE RECORDS SUMMARY | ~2019-03-11 | XMS | Encounter Summary ---
Demographics + + + | Address | [address] | | | [place] [address] | + + + | Home Phone | | + + + | Preferred Language | Unknown | + + + | Marital Status | | + + + | Anabaptism Affiliation | ASG | + + + | Race | White | + + + | Ethnic Group | Not or | + + + Author + + + | Author | [facility] | + + + | Organization | [facility] | + + + | Address | Unknown | + + + | Phone | Unavailable | + + + Support + + + + + | Name | Relationship | Address | Phone | + + + + + | Christy Flaherty | ECON | [address] | | | | | [place] | | | | | [address] | | + + + + + Care Team Providers + +------+ + | Care Immigration Manager Name | Role | Phone | + +------+ + | Filippo Chen DO | PCP | | + +------+ + Reason for Visit +--------+ + | Reason | Comments | +--------+ + | Other | Epilepsy monitoring unit discharge letter | +--------+ + Encounter Details +--------+ + + + + | Date | Type | Department | Care Team | Description | +--------+ + + + + | 12/19/ | Documentati | Neurology at | Anthony De La O MD | Other (Epilepsy | | 2016 | on | [facility] & | [address] | monitoring unit | | | | Healing [address] | [place], [place] | discharge letter) | | | | [address] Mailcode: | [address] | | | | | [facility] | [phone] | | | | | Health and [facility], | | | | | | [facility] | | | | | | [place], [place] | | | | | | [address] | | | | | | [phone] | | | +--------+ + + + [...]
--- OUTSIDE RECORDS SUMMARY | ~2019-03-11 | XMS | Encounter Summary ---
Demographics + + + | Address | [address] | | | [place] [address] | + + + | Home Phone | | + + + | Preferred Language | Unknown | + + + | Marital Status | | + + + | Bahai Affiliation | 1061 | + + + | Race | Unknown | + + + | Ethnic Group | Unknown | + + + Author + + + | Author | [facility] | | | and [place] | + + + | Organization | [facility] | | | and [...] [place] | | | | | [address] | | + + + + + | Christy Grande | ECON | [address] | | | | | [place] | | | | | [address] | | + + + + + Care Team Providers + +------+ + | Care Ramp And Cargo Supervisor Name | Role | Phone | + +------+ + | Juan Demarco MD | PCP | | + +------+ + Encounter Details +--------+ + + + + | Date | Type | Department | Care Team | Description | +--------+ + + + + | 02/24/ | Emergency | [facility] | Azar Herron | Idiopathic acute | | 2017 | | [facility] | MD Michael [address] | pancreatitis without | | | | [facility] | [place], [place] | infection or | | | | [address] | [address] | necrosis | | | | [place], [place] | [phone] | | | | | [address] | | | | | | [phone] | | | +--------+ + + + [...] + + documented as of this encounter Medications at Time of Discharge + + + +---------+ + + | Medication | Sig | Dispensed | Refills | Start | End Date | | | | | | Date | | + + + +---------+ + + | divalproex | TAKE TWO TABLETS BY | | 0 | 08/12/19 | | | (DEPAKOTE) [address] | MOUTH TWICE DAILY | | | 16 | | | tablet | | | | | | + + + +---------+ + + | | Take 1 tablet by | | 0 | | | | HYDROcodone-acetamin | mouth every 6 hours | | | | | | ophen (NORCO) 5-325 | as needed for Pain. | | | | | | mg per tablet | | | | | | + + + +---------+ + + | methotrexate 2.5 | Take 6 mg every | | 0 | 11/07/19 | | | mg tablet | Th | | | 16 | | + + + +---------+ + + | mometasone | | | 0 | 08/30/19 | | | (ELOCON) 0.1 % cream | | | | 13 | | + + + +---------+ + + | pantoprazole | | | 0 | 01/14/20 | | | (PROTONIX) 40 mg | | | | 17 | | | tablet | | | | | | + + + +---------+ + + | pravastatin | | | 0 | 09/01/19 | | | (PRAVACHOL) 80 MG | | | | 13 | | | tablet | | | | | | + + + +---------+ + + | valproic acid | | | 0 | 06/29/19 | | | (DEPAKENE) 250 MG | | | | 13 | | | capsule | | | | | | + + + +---------+ + + documented as of this encounter Plan of Treatment Not on filedocumented as of this encounter Procedures + +--------+ + + + | Procedure Name | Priori | Date/Time | Associated Diagnosis | Comments | | | ty | | | | + +--------+ + + + | CT ABDOMEN PELVIS WO | Routin | 02/24/2017 | | Results for this | | CONTRAST | e | 11:28 AM | | procedure are in the | | | | PST | | results section. | + +--------+ + + + | URINALYSIS, REFLEX | Routin | 02/24/2017 | | Results for this | | MICROSCOPIC AND/OR | e | 9:31 AM | | procedure are in the | | CULTURE | | PST | | results section. | + +--------+ + + + | EXTERNAL LAB: CBC | Routin | 02/24/2017 | | Results for this | | | e | 9:30 AM | | procedure are in the | | | | PST | | results section. | + +--------+ + + + | C-REACTIVE PROTEIN | Routin | 02/24/2017 | | Results for this | | | e | 9:30 AM | | procedure are in the | | | | PST | | results section. | + +--------+ + + + | LIPASE | Routin | 02/24/2017 | | Results for this | | | e | 9:30 AM | | procedure are in the | | | | PST | | results section. | + +--------+ + + + | COMPREHENSIVE | Routin | 02/24/2017 | | Results for this | | METABOLIC PANEL | e | 9:30 AM | | procedure are in the | | | | PST | | results section. | + +--------+ + + + documented in this encounter Results CT Abdomen Pelvis wo Contrast (02/24/2017 11:28 AM PST) + + | Specimen | + + | | + + + + + | Impressions | Performed At | + + + | 1. Mild peripancreatic inflammatory stranding, likely representing | | | acute pancreatitis. Lack of intravenous contrast diminishes | | | sensitivity. Prominence of the uncinate processes identified, | | | nonspecific. No gross evidence of pancreatic ductal dilatation seen. | | | No biliary ductal dilatation seen. Recommend follow-up MRI abdomen | | | examination with and without contrast and with MRCP with pancreatic | | | protocol in 4-6 weeks after appropriate therapy for definitive | | | assessment of a masslike lesion. 2. No free air, bowel obstruction, | | | ileus or fluid collection seen. | | + + + + + + | Narrative | Performed At | + + + | JOHNNY GRANDE [address] ABDOMEN PELVIS WO | | | CONTRAST 02/24/2017 11:28 AM INDICATION: Abdominal pain. | | | Possible pancreatic mass. COMPARISON: None. TECHNIQUE: 5-mm | | | axial images were acquired through the abdomen and pelvis. No oral or | | | IV contrast was used. Radiation dose reduction performed with | | | automated exposure control. FINDINGS: Lack of intravenous contrast | | | diminishes sensitivity, especially for assessment of solid organs and | | | vascular structures. Liver: appears unremarkable Gall | | | bladder: appears unremarkable Pancreas: There is mild | | | peripancreatic inflammatory stranding seen. Prominence of the uncinate | | | process identified on series 3, image 31. Lack of intravenous | | | contrast diminishes sensitivity. No gross evidence of pancreatic | | | ductal dilatation appreciated. No fluid collection seen. No biliary | | | ductal dilatation seen. Spleen: appears unremarkable Adrenal | | | glands: appear unremarkable Kidneys: appear unremarkable Bowel | | | and peritoneum: No free air, bowel obstruction, ileus or fluid | | | collection seen. Tiny fat-containing umbilical hernia. Lymph | | | nodes: No enlarged lymph nodes by CT size criteria seen. Aorta: | | | does not appear aneurysmal. Visualized lungs: minimal scarring | | | seen. Osseous structures: No acute or destructive osseous process | | | seen. Appendix: appears unremarkable. Series 3, image 58. Other | | | pelvis structures: Rectum, sigmoid colon appear grossly unremarkable. | | | No enlarged pelvic lymph nodes seen. Suspected small left | | | fat-containing hernia. | | + + + + + | Procedure Note | + + | Kj, Rad Conversion - 11/10/2018 1:54 AM PDT JOHNNY GRANDE years MaleCT | | ABDOMEN PELVIS WO [id number]/29/2017 11:28 AM INDICATION: Abdominal pain. Possible | | pancreatic mass. COMPARISON: None. TECHNIQUE: 5-mm axial images were acquired through | | the abdomen and pelvis. No oral or IV contrast was used. Radiation dose reduction | | performed with automated exposure control. FINDINGS: Lack of intravenous contrast | | diminishes sensitivity, especially for assessment of solid organs and vascular | | structures. Liver: appears unremarkable Gall bladder: appears unremarkable Pancreas: | | There is mild peripancreatic inflammatory stranding seen. Prominence of the uncinate | | process identified on series 3, image 31. Lack of intravenous contrast diminishes | | sensitivity. No gross evidence of pancreatic ductal dilatation appreciated. No fluid | | collection seen. No biliary ductal dilatation seen. Spleen: appears unremarkable Adrenal | | glands: appear unremarkable Kidneys: appear unremarkable Bowel and peritoneum: No free | | air, bowel obstruction, ileus or fluid collection seen. Tiny fat-containing umbilical | | hernia. Lymph nodes: No enlarged lymph nodes by CT size criteria seen. Aorta: does not | | appear aneurysmal. Visualized lungs: minimal scarring seen. Osseous structures: No acute | | or destructive osseous process seen. Appendix: appears unremarkable. Series 3, image | | 58.Other pelvis structures: Rectum, sigmoid colon appear grossly unremarkable. No | | enlarged pelvic lymph nodes seen. Suspected small left fat-containing hernia. | | IMPRESSION: 1. Mild peripancreatic inflammatory stranding, likely representing acute | | pancreatitis. Lack of intravenous contrast diminishes sensitivity. Prominence of the | | uncinate processes identified, nonspecific. No gross evidence of pancreatic ductal | | dilatation seen. No biliary ductal dilatation seen. Recommend follow-up MRI abdomen | | examination with and without contrast and with MRCP with pancreatic protocol in 4-6 | | weeks after appropriate therapy for definitive assessment of a masslike lesion.2. No | | free air, bowel obstruction, ileus or fluid collection seen. | |Kidneys: appear unremarkable | | | |Bowel and peritoneum: No free air, bowel obstruction, ileus or fluid collection seen. Tiny fat-containing umbilical hernia. | | | |Lymph nodes: No enlarged lymph nodes by CT size criteria seen. | | | |Aorta: does not appear aneurysmal. | | | |Visualized lungs: minimal scarring seen. | | | |Osseous structures: No acute or destructive osseous process seen. | | | |Appendix: appears unremarkable. Series 3, image 58. | |Other pelvis structures: Rectum, sigmoid colon appear grossly unremarkable. No enlarged pel sen lymph nodes seen. Suspected small left fat-containing hernia. | | | | | |IMPRESSION: | |1. Mild peripancreatic inflammatory stranding, likely representing acute pancreatitis. Lac k of intravenous contrast diminishes sensitivity. Prominence of the uncinate processes ident ified, nonspecific. No gross | |evidence of pancreatic ductal dilatation | |seen. No biliary ductal dilatation seen. Recommend follow-up MRI abdomen examination with a nd without contrast and with MRCP with pancreatic protocol in 4-6 weeks after appropriate th erapy for definitive assessment of a masslike lesion. | |2. No free air, bowel obstruction, ileus or fluid collection seen. | | | | | + + Urinalysis, Reflex Microscopic and/or Culture (02/24/2017 9:31 AM PST) + + + + + + | Component | Value | Ref Range | Performed | Pathologist | | | | | At | Signature | + + + + + + | Color | YELLOW | | EXTERNAL | | | | | | LAB | | + + + + + + | Clarity | CLEAR | | EXTERNAL | | | | | | LAB | | + + + + + + | Specific | 1.020 | 1.001 - 1.035 | EXTERNAL | | | [facility] | | | LAB | | + + + + + + | Leukocyte | NEGATIVE | | EXTERNAL | | | Esterase, | | | LAB | | | Urine | | | | | + + + + + + | Nitrite, | NEGATIVE | | EXTERNAL | | | Urine | | | LAB | | + + + + + + | Urobilinoge | 1.0 | mg/dL | EXTERNAL | | | n, Urine | | | LAB | | + + + + + + | Protein, | NEGATIVE | mg/dL | EXTERNAL | | | Urine | | | LAB | | + + + + + + | pH, Urine | 7.0 | 4.6 - 8.0 | EXTERNAL | | | | | | LAB | | + + + + + + | Blood, | NEGATIVE | | EXTERNAL | | | Urine | | | LAB | | + + + + + + | Ketones | 15 (A) | mg/dL | EXTERNAL | | | | | | LAB | | + + + + + + | Bilirubin, | NEGATIVE | | EXTERNAL | | | Urine | | | LAB | | + + + + + + | Glucose, | 100 (A)Comment: Testing | mg/dL | EXTERNAL | | | Urine | performed at [facility], [address] | | [address], [place], | | | | | | [place] [address] | | | | + + + + + + + + | Specimen | + + | Urine specimen | | (specimen) | + + + +---------+ + + | Performing | Address | City/State/Zipcode | Phone Number | | Organization | | | | + +---------+ + + | EXTERNAL LAB | | | | + +---------+ + + External Lab: [facility] (02/24/2017 9:30 AM PST) + + + + + + | Component | Value | Ref Range | Performed | Pathologist | | | | | At | Signature | + + + + + + | WBC | 6.97 | 3.80 - 11.00 | EXTERNAL | | | | | K/uL | LAB | | + + + + + + | RED CELL | 5.51 | 4.20 - 5.70 | EXTERNAL | | | COUNT | | M/uL | LAB | | + + + + + + | Hgb | 16.5 | 13.2 - 17.0 | EXTERNAL | | | | | g/dL | LAB | | + + + + + + | Hematocrit, | 49.0 | 39.0 - 50.0 % | EXTERNAL | | | POC | | | LAB | | + + + + + + | MCV | 88.9 | 80.0 - 100.0 fl | EXTERNAL | | | | | | LAB | | + + + + + + | MCH | 30.0 | 27.0 - 34.0 pg | EXTERNAL | | | | | | LAB | | + + + + + + | MCHC | 33.7 | 32.0 - 35.5 | EXTERNAL | | | | | g/dL | LAB | | + + + + + + | RDW-CV | 38.5 | 37 - 53 fl | EXTERNAL | | | | | | LAB | | + + + + + + | Platelet | 157 | 150 - 400 K/uL | EXTERNAL | | | Count | | | LAB | | | Plasma | | | | | + + + + + + | MPV | 9.3 | fl | EXTERNAL | | | | | | LAB | | + + + + + + | Differentia | AUTOMATED | | EXTERNAL | | | l Type | | | LAB | | + + + + + + | % Segmented | 53.60 | % | EXTERNAL | | | | | | LAB | | | Neutrophils | | | | | + + + + + + | % | 35.91 | % | EXTERNAL | | | Lymphocytes | | | LAB | | + + + + + + | % Monocytes | 8.62 | % | EXTERNAL | | | | | | LAB | | + + + + + + | % | 1.30 | % | EXTERNAL | | | Eosinophils | | | LAB | | + + + + + + | % Basophils | 0.57 | % | EXTERNAL | | | | | | LAB | | + + + + + + | Absolute | 3.74 | 1.90 - 7.40 | EXTERNAL | | | Segmented | | K/uL | LAB | | | Neutrophils | | | | | + + + + + + | Absolute | 2.50 | 1.00 - 3.90 | EXTERNAL | | | Lymphocytes | | K/uL | LAB | | + + + + + + | Absolute | 0.60 | 0.00 - 0.80 | EXTERNAL | | | Monocytes | | K/uL | LAB | | + + + + + + | Absolute | 0.09 | 0.00 - 0.50 | EXTERNAL | | | Eosinophils | | K/uL | LAB | | + + + + + + | Absolute | 0.04Comment: Testing | 0.00 - 0.10 | EXTERNAL | | | Basophils | performed at [facility], [address] | LAB | | | | [address] [place], | | | | | | [place] [address] | | | | + + + + + + + + | Specimen | + + | Blood specimen | | (specimen) | + + + +---------+ + + | Performing | Address | City/State/Zipcode | Phone Number | | Organization | | | | + +---------+ + + | EXTERNAL LAB | | | | + +---------+ + + C-Reactive Protein (02/24/2017 9:30 AM PST) + + + + + + | Component | Value | Ref Range | Performed | Pathologist | | | | | At | Signature | + + + + + + | CRP | 0.5 (H)Comment: Testing | mg/dL | EXTERNAL | | | | performed at [facility], [address] | | [address] | | | | [address], | | | | | | [place] [address] | | | | + + + + + + + + | Specimen | + + | Blood specimen | | (specimen) | + + + +---------+ + + | Performing | Address | City/State/Zipcode | Phone Number | | Organization | | | | + +---------+ + + | EXTERNAL LAB | | | | + +---------+ + + Lipase (02/24/2017 9:30 AM PST) + + + + + + | Component | Value | Ref Range | Performed | Pathologist | | | | | At | Signature | + + + + + + | Lipase | 457 (H)Comment: Testing | 73 - 393 U/L | EXTERNAL | | | | performed at [facility], [address] | | LAB | | | | [address] [place], | | | | | | [place] [address] | | | | + + + [...] + +---------+ + + Comprehensive Metabolic Panel (02/24/2017 9:30 AM PST) + + + + + + | Component | Value | Ref Range | Performed | Pathologist | | | | | At | Signature | + + + + + + | Na | 143 | 135 - 145 | EXTERNAL | | | | | mmol/L | LAB | | + + + + + + | K | 4.6 | 3.5 - 4.9 | EXTERNAL | | | | | mmol/L | LAB | | + + + + + + | Cl | 104 | 99 - 109 mmol/L | EXTERNAL | | | | | | LAB | | + + + + + + | CO2 | 29 | 23 - 32 mmol/L | EXTERNAL | | | | | | LAB | | + + + + + + | Anion Gap | 15 | 5 - 20 mmol/L | EXTERNAL | | | | | | LAB | | + + + + + + | Glucose, | 145 (H) | 65 - 99 mg/dL | EXTERNAL | | | Fasting | | | LAB | | + + + + + + | BUN | 13 | 8 - 25 mg/dL | EXTERNAL | | | | | | LAB | | + + + + + + | Creatinine | 0.84 | 0.70 - 1.30 | EXTERNAL | | | | | mg/dL | LAB | | + + + + + + | BUN/Creatin | 16 | | EXTERNAL | | | ine Ratio | | | LAB | | + + + + + + | Calcium | 9.0 | 8.5 - 10.5 | EXTERNAL | | | | | mg/dL | LAB | | + + + + + + | Protein, | 7.0 | 6.3 - 8.2 g/dL | EXTERNAL | | | Total | | | LAB | | + + + + + + | Albumin | 3.6 | 3.6 - 5.0 g/dL | EXTERNAL | | | | | | LAB | | + + + + + + | Globulin | 3.4 | 1.3 - 4.9 g/dL | EXTERNAL | | | | | | LAB | | + + + + + + | A/G Ratio | 1.1 | 1.0 - 2.4 | EXTERNAL | | | | | | LAB | | + + + + + + | Bilirubin | 0.4 | 0.1 - 1.5 mg/dL | EXTERNAL | | | Total | | | LAB | | + + + + + + | ALP, | 86 | 35 - 115 U/L | EXTERNAL | | | External | | | LAB | | + + + + + + | AST | 10 | 10 - 45 U/L | EXTERNAL | | | | | | LAB | | + + + + + + | ALT | 19 | 10 - 65 U/L | EXTERNAL | | | | | | LAB | | + + + + + + | Estimated | >60Comment: GFR <60: | mL/min/1.73m2 | EXTERNAL | | | GFR | CHRONIC KIDNEY DISEASE, | | LAB | | | | IF FOUND OVER A 3 MONTH | | | | | | PERIOD.GFR <15: KIDNEY | | | | | | FAILURE.FOR | | | | | | AMERICANS, MULTIPLY THE | | | | | | CALCULATED GFR BY | | | | | | 1.210.Testing performed | | | | | | at [facility], [address] | | | | | [place] | | | | | | [address] | | | | + + + [...] + | Diagnosis | + + | Idiopathic acute pancreatitis without infection or necrosis | + + documented in this encounter"
--- OUTSIDE RECORDS SUMMARY | ~2019-03-11 | XMS | Encounter Summary ---
Demographics + + + | Address | [address] | | | [place] [address] | + + + | Home Phone | | + + + | Preferred Language | Unknown | + + + | Marital Status | | + + + | Pentecostalism Affiliation | ASG | + + + | Race | White | + + + | Ethnic Group | Not or | + + + Author + + + | Author | [facility] | + + + | Organization | [facility] | + + + | Address | Unknown | + + + | Phone | Unavailable | + + + Support + + + + + | Name | Relationship | Address | Phone | + + + + + | Christy Flaherty | ECON | [address] | | | | | [place] | | | | | [address] | | + + + + + Care Team Providers + +------+ + | Care Ultrasound Technologist Name | Role | Phone | + [...] | | | | | Procedures | [facility] | Mailcode: | | | | | CT | Rd | [facility] | | | | | MULTIPHASE | [place], [place] | for Health | | | | | PANCREAS AND | [address] | and Healing, | | | | | PELVIS [address] | Phone: | [address] | | | | | CONTRAST | [phone] | [address] Floor | | | | | [address] | Fax: | [place], [place] | | | | | ABD&PELV 1+ | [phone] | [address] | | | | | SECTION/REGN | | Phone: | | | | | S | | [phone] | | | | | | | Fax: | | | | | | | [phone] | +--------+--------+ + + + + Reason for Visit Diagnostic Testing (Routine) +--------+--------+ + + + + | Status | Reason | Specialty | Diagnoses / | Referred By | Referred To | | | | | Procedures | Contact | Contact | +--------+--------+ + + + + | Closed | | Radiology | Diagnoses | Jarek, | Rad Ct Scan | | | | | Recurrent | MD Taiwo | [address] | | | | | pancreatitis | [address] | [address] [place] [address] | | | | | Procedures | [facility] | Mailcode: | | | | | CT | Rd | [facility] | | | | | MULTIPHASE | [place], [place] | for Health | | | | | PANCREAS AND | [address] | and Healing, | | | | | PELVIS W IV | Phone: | [address], | | | | | CONTRAST | [phone] | 3rd Floor | | | | | [address] CT | Fax: | [place], [place] | | | | | ABD&PELV 1+ | [phone] | [address] | | | | | SECTION/REGN | | Phone: | | | | | S | | [phone] | | | | | | | Fax: | | | | | | | [phone] | +--------+--------+ + + + + Encounter Details +--------+ + + + + | Date | Type | Department | Care Team | Description | +--------+ + + + + | 07/29/ | Hospital | Radiology/Imaging | Taiwo Tilley, | | | 2018 | Encounter | Lab at [facility] [address] | [address] | | | | | [place] Mailcode: | [address] | | | | | [facility] | [place], [place] | | | | | Health and Healing, | [address] | | | | | [address] | [phone] | | | | | Floor [place], [place] | | | | | | [address] | | | | | | [phone] | | | +--------+ + + + [...] + + + +---------+ + + | acetaminophen 325 | Take 325 mg by mouth | | 0 | | | | mg oral tablet | every four hours as | | | | | | | needed (pain). | | | | | + + + +---------+ + + | aspirin 325 mg | Take 325 mg by mouth | | 0 | | | | oral tablet | once daily. | | | | | + + + +---------+ + + | bisacodyl 10 mg | Unwrap and insert 1 | 20 | 1 | 04/23/19 | | | rectal | suppository rectally | supposito | | 18 | | | suppositoryIndicatio | once daily as | ry | | | | | ns: constipation | needed. Indications: | | | | | | | constipation | | | | | + + + +---------+ + + | divalproex DR 500 | Take 2 tablets by | | 0 | 05/06/19 | | | mg oral | mouth two times | | | 16 | | | tablet,delayed | daily. | | | | | | release (DR/EC) | | | | | | + + + +---------+ + + | ERGOCALCIFEROL, | Take 50,000 Units by | | 0 | | | | VITAMIN D2, (VITAMIN | mouth every seven | | | | | | D ORAL) | days. Takes every | | | | | | | Wednesday | | | | | + + + +---------+ + + | folic acid 1 mg | Take 1 mg by mouth | | 0 | | | | oral tablet | once daily. | | | | | + + + +---------+ + + | | Take 1 tablet by | 15 | 0 | 04/10/19 | | | HYDROcodone-acetamin | mouth every six | tablet | | 18 | | | ophen (NORCO) 5-325 | hours as needed for | | | | | | mg oral | moderate pain or | | | | | | tabletIndications: | severe pain. 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 | | | | | | tabletIndications: | Takes every | | | | | | psoriatic arthritis | Indications: | | | | | | | PSORIATIC ARTHRITIS | | | | | + + + +---------+ + + | mometasone 0.1 % | Apply 1 applicator | | 0 | | | | topical cream | to affected area | | | | | | | once daily. Apply a | | | | | | | thin film to ears | | | | | | | daily (indication: | | | | | | | psoriasis) | | | | | + + + +---------+ + + | polyethylene | Mix 17 g in liquid | 1700 g | 1 | 03/11/20 | | | glycol (MIRALAX) 17 | and drink two times | | | 17 | | | gram/dose oral | daily. Indications: | | | | | | powderIndications: | constipation | | | | | | constipation | | | | | | + + + +---------+ + + documented as of this encounter Plan of Treatment Not on filedocumented as of this encounter Procedures + +--------+ + + + | Procedure Name | Priori | Date/Time | Associated Diagnosis | Comments | | | ty | | | | + +--------+ + + + | CT MULTIPHASE | Routin | 07/29/2017 | Recurrent | Results for this | | PANCREAS AND PELVIS | e | 2:52 PM | pancreatitis (HCC) | procedure are in the | | W IV CONTRAST | | PDT | | results section. | + +--------+ + + + documented in this encounter Results CT MULTIPHASE PANCREAS AND [...] Diagnosis | + + | Recurrent pancreatitis Chronic pancreatitis | + + documented in this encounter Administered Medications + +---------+ +--------+------+------+ | Medication Order | MAR | Action | Dose | Rate | Site | | | Action | Date | | | | + +---------+ +--------+------+------+ | iohexol (OMNIPAQUE) 350 mg | IV Push | 07/30/19 | 125 mL | | | | iodine/mL injection 125 mL 125 | | 18 2:52 | | | | | mL, intravenous, ONCE, 1 dose, | | PM PDT | | | | | Vero 07/29/17 at 1530 | | | | | | + +---------+ +--------+------+------+ +---+---+ | | | +---+---+ documented in this encounter"
--- OUTSIDE RECORDS SUMMARY | ~2019-03-11 | XMS | Encounter Summary ---
Demographics + + + | Address | [address] | | | [place] [address] | + + + | Home Phone | | + + + | Preferred Language | Unknown | + + + | Marital Status | | + + + | Baptism Affiliation | ASG | + + + | Race | White | + + + | Ethnic Group | Not or | + + + Author + + + | Author | [facility] | + + + | Organization | [facility] | + + + | Address | Unknown | + + + | Phone | Unavailable | + + + Support + + + + + | Name | Relationship | Address | Phone | + + + + + | Christy Flaherty | ECON | [address] | | | | | [place] | | | | | [address] | | + + + + + Care Team Providers + +------+ + | Care Quality Control Engineering Technician Name | Role | Phone | [...] | | | | | Procedures | [facility] | Mailcode: | | | | | CT | Rd | [facility] | | | | | MULTIPHASE | [place], [place] | for Health | | | | | PANCREAS AND | [address] | and Healing, | | | | | [address] | Phone: | Building [address], | | | | | CONTRAST | [phone] | 3rd Floor | | | | | [address] | Fax: | [place], [place] | | | | | ABD&PELV 1+ | [phone] | [address] | | | | | SECTION/REGN | | Phone: | | | | | S | | [phone] | | | | | | | Fax: | | | | | | | [phone] | +--------+--------+ + + + + Reason [...] | | 2018 | | Center at [facility] [address] | [address] | teaching, guidance, | | | | [address] | [address] | and counseling | | | | Mailcode: Center | [place], [place] | | | | | [facility] and | [address] | | | | | [facility], [facility] 2 | [phone] | | | | | [place], [place] | | | | | | [address] | | | | | | [phone] | | | +--------+ + + + [...] | | LAB | | | | [place] [address] | | | | | | | [...]
--- OUTSIDE RECORDS SUMMARY | ~2019-03-11 | XMS | Encounter Summary ---
Demographics + + + | Address | [address] | | | [place] [address] | + + + | Home Phone | | + + + | Preferred Language | Unknown | + + + | Marital Status | | + + + | Zoroastrian Affiliation | 1061 | + + + | Race | Unknown | + + + | Ethnic Group | Unknown | + + + Author + + + | Author | [facility] | | | and [place] | + + + | Organization | [facility] | | [...] [place] | | | | | [address] | | + + + + + | Christy Flaherty | ECON | [address] | | | | [place] | | | | | [address] | | + + + + + Care Team Providers + +------+ + | Care Coal Handler Name | Role | Phone | + [...] Description | +--------+---------+ + + + | 09/12/ | Office | [facility] | [place] | Contusion of right | | 2014 | Visit | OCCUPATIONAL HEALTH | [address] | hand, subsequent | | | | [address] | [facility] | encounter (Primary | | | | [address] [facility] | [place] [address] | Dx); Place of | | | | [place], [place] | [phone] | occurrence, | | | | [address] | | industrial places | | | | [phone] | | and premises | +--------+---------+ + + + Social History [...] + + + | Blood Pressure | 122/74 | 09/12/2014 2:13 PM | | | | | PDT | | + + + + + | Pulse | 76 | 09/12/2014 2:13 PM | | | | | PDT | | + + + + + | Temperature | 36.6 C (97.8 F) | 09/12/2014 2:13 PM | | | | | PDT | | + + + + + | Respiratory Rate | 16 | 09/12/2014 2:13 PM | | | | | PDT | | + + + + + | Oxygen Saturation | - | - | | + + + + + | Inhaled Oxygen | - | - | | | Concentration | | | | + + + + + | Weight | 102.1 kg (225 lb) | 09/12/2014 2:13 PM | | | | | PDT | | + + + + + | Height | 177.8 cm (5' 10") | 09/12/2014 2:13 PM | | | | | PDT | | + + + + + | Body Mass Index | 32.28 | 09/12/2014 2:13 PM | | | | | PDT | | + + + + + documented in this encounter Progress Notes [place] MD - 09/12/2014 3:55 PM PDTEmployer:[employer] Guarantor: Merlyn Date of injury: 08/18/2012 Claim number: [id number] Chief complaint: Right hand injury, scheduled appointment for reopening application Subjective: Injured worker is currently 49 years of age who presents for scheduled appointm ent to reopening his claim for his right hand injury. The injured worker provides the follo wing information he states that he was fine from the injury that we evaluated some 2 years a go, until approximately 2 months ago. 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 Variou s methods of self treatment have not brought about any improvement. I asked him once again about what he's been doing with his hand, and he states basically he's been leading a sedent luiz life. He ended up leaving his job with the [employer] for which this injury oc curred, and then went to work in [employer] which he started in May of this year, on and is very first day he had a seizure occur and was taken out of work and has not been able to return to work, he is working through getting a further evaluation of this. So he basically has not been doing anything since May and has had the development of this problem in his right hand. He also describes mild intermittent triggering types effects in the right hand. He denies other constitutional symptoms. I was the physician at the time of claims closure and my reports as well as the reports of other providers seeing the patient at that time have been reviewed. Past medical history, medications, allergies reviewed Review of systems: As per HPI Objective: Vital signs as noted, nursing notes reviewed. Kdnifwa-cfyl-dmpjqcuxg, well-nourished, in no apparent distress, pleasant cooperative. Extremities: Focused exam on the right upper extremity shows that it is basically normal to inspection. There is no outward evidence of trauma, deformity or acute inflammatory proces s. Elbow exam is normal with full range of motion, the right wrist exam is normal to inspec tion with full range of motion, no generation of pain, he has no tenderness with Tinel's ravi t over the median nerve canal, or at the ulnar nerve canal at the elbow. Further focused ex amination on the right hand shows that the palmar aspect is normal without acute inflammator y findings. On palpation he has 2 very small firm and not movable subcutaneous nodules appr oximately 1-1-1/2 cm proximal to the metacarpal crease running along the general distributio n of the flexor tendon of the middle and ring fingers. Palpation reveals modest discomfort, range of motion in the hand on flexing and extension do not show significant movement at th is nodular area. He does complain of pain and has a slight inability to fully flex his fing ers into a handgrip position. It is painful to do this. He has good distal neural circulat ory response in the hand. Further inspection and palpation of the left hand does not reveal any similar findings. Imaging/diagnostics: Plain radiography of the right hand is performed. It appears normal to my interpretation, it is pending official radiology report. Should be noted that I did a comparison evaluation with the previous x-rays of 2 years ago, and these images were reviewed personally with the injured worker and he appreciated the evaluation. Pending interventions: Continue conservative management, this included my interpretation of the current clinical f indings, and my treatment recommendations for this regardless of whether the claim gets reop ened or not. Assessment: 1. Regional excepted condition for the claim, contusion to the right hand with possible ga nglion cyst, ganglion cyst appears to be resolved and this condition is MMI 2. Flexor tendinitis with mild triggering palm of the right hand middle finger and ring fi nger. Does not appear to be connected to the original condition based on the information pr ovided Plan: I've indicated the injured worker that conservative treatment would include activity modification cold packs anti-inflammatory medications if he is able to take this, but I woul d recommend an orthopedic referral with the expectation that a cortisone injection may be be neficial in curative for this condition. I further indicated the injured worker that it was my opinion that the current condition was not related to the work related injury of some 2 years ago as there did not seem to be any logical connection with the findings from that octavio luation of 2012. I will submit the reopen application per the injured worker's request and asked him to return for follow-up visit should the claim be reopened where I would be happy to help to expedite appropriate treatment for his current problems. 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 He v oiced understanding and agreement appreciation for the counseling with regards to this. E: No work restrictions based on objective findings for the excepted condition for this cla im R: No restrictions, no impairment as a consequence of the excepted condition of the claim, he will follow-up if the claim is reopened otherwise as needed. documented in t his encounter Plan of Treatment Not on filedocumented as of this encounter Results XR Hand Right 3 + Vw (09/12/2014 3:19 PM PDT) + + | Specimen | + + | | + + + + + | Narrative | Performed At | + + + | EXAM: XR HAND RIGHT 3 + VW dated 09/12/2014 3:15 PM HISTORY:right | [facility] | | hand pain, no injury recently COMPARISON: September 02, 2012. | [facility] | | FINDINGS:3 views of the right hand. Normal mineralization. Normal | [facility]ENTER | | alignment. No bony erosion or destruction. There are mild | - IMAGING | | degenerative changes at the thumb metacarpal phalangeal joint. | | | Possible calcification adjacent to the fifth digit metacarpal head. | | | This may represent hydroxyapatite deposition. The soft tissues | | | are unremarkable. There are no radiopaque foreign bodies. | | | IMPRESSION - Very mild degenerative changes in the thumb | | | metacarpal phalangeal joint. Possible early hydroxyapatite | | | deposition adjacent to the fifth metacarpal head. Dictated and | | | Signed by: Carlos Chatman MD Electronically signed: 09/12/2014 | | | 4:25 PM | | + + + + + | Procedure Note | + + | Kj, Mohit Results In - 09/12/2014 4:28 PM PDT EXAM: XR HAND RIGHT 3 + VW dated | | 09/12/2014 3:15 PMHISTORY:right hand pain, no injury recentlyCOMPARISON: September 02 | | 2012.FINDINGS:3 views of the right hand. Normal mineralization. Normal alignment. No | | bony erosion or destruction. There are mild degenerative changes at thethumb metacarpal | | phalangeal joint. Possible calcification adjacent to the fifthdigit metacarpal head. | | This may represent hydroxyapatite deposition. The softtissues are unremarkable. There | | are no radiopaque foreign bodies.IMPRESSION -Very mild degenerative changes in the thumb | | metacarpal phalangeal joint.Possible early hydroxyapatite deposition adjacent to the | | fifth metacarpal head.Dictated and Signed by: Carlos Chatman MD Electronically | | signed: 09/12/2014 4:25 PM | |tissues are unremarkable. There are no radiopaque foreign bodies. | | | |IMPRESSION - | | | |Very mild degenerative changes in the thumb metacarpal phalangeal joint. | | | |Possible early hydroxyapatite deposition adjacent to the fifth metacarpal head. | | | |Dictated and Signed by: Carlos Chatman MD | | Electronically signed: 09/12/2014 4:25 PM | + + + + + + + | Performing | Address | City/State[facility] | Phone Number | | Organization | | | | + + + + + | [address] | [address] | [place] | [phone] | | [facility] | | [address] | | | - IMAGING | | | | + + + + + documented in this encounter Visit Diagnoses + + | Diagnosis | + + | Contusion of right hand, subsequent encounter - Primary | + + | Place of occurrence, industrial places and premises | + + documented in this encounter
--- OUTSIDE RECORDS SUMMARY | ~2019-03-11 | XMS | Encounter Summary ---
Demographics + + + | Address | [address] | | | [place] [address] | + + + | Home Phone | | + + + | Preferred Language | Unknown | + + + | Marital Status | | + + + | Evangelical Affiliation | ASG | + + + | Race | White | + + + | Ethnic Group | Not or | + + + Author + + + | Author | [facility] | + + + | Organization | [facility] | + + + | Address | Unknown | + + + | Phone | Unavailable | + + + Support + + + + + | Name | Relationship | Address | Phone | + + + + + | Christy Flaherty | ECON | [address] | | | | | [place] | | | | | [address] | | + + + + + Care Team Providers + +------+ + | Care Cannery Worker Name | Role | Phone | + +------+ + | Filippo Chen DO | PCP | | + +------+ + Encounter Details +--------+ + + + + | Date | Type | Department | Care Team | Description | +--------+ + + + + | 01/18/ | Document-Sc | Health Information | Unknown . | | | 2017 | anned | Services [address] | | | | | | [address] | | | | | | Mailcode: OP17A | | | | | | [facility] | | | | | | [place], [place] | | | | | | [address] | | | | | | [phone] | | | +--------+ + + + [...] | + +--------+ + + + | RADIOLOGY | | 01/18/2017 | | Results for this | | | | 12:00 AM | | procedure are in the | | | | PDT | | results section. | + +--------+ + + + documented in this encounter Results RADIOLOGY (01/18/2017 12:00 AM PDT) + + + | Narrative | Performed At | + + + | | | + + + documented in this encounter Visit Diagnoses Not on filedocumented in this encounter"
--- OUTSIDE RECORDS SUMMARY | ~2019-03-11 | XMS | Encounter Summary ---
Demographics + + + | Address | [address] | | | [place] [address] | + + + | Home Phone | | + + + | Preferred Language | Unknown | + + + | Marital Status | | + + + | Taoist Affiliation | ASG | + + + | Race | White | + + + | Ethnic Group | Not or | + + + Author + + + | Author | [facility] | + + + | Organization | [facility] | + + + | Address | Unknown | + + + | Phone | Unavailable | + + + Support + + + + + | Name | Relationship | Address | Phone | + + + + + | Christy Flaherty | ECON | [address] | | | | | [place] | | | | | [address] | | + + + + + Care Team Providers + +------+ + | Care Technology Manager Name | Role | Phone | + +------+ + | Jarvis Willard MD | PCP | | + +------+ + Encounter Details +--------+ + + + + | Date | Type | Department | Care Team | Description | +--------+ + + + + | 03/10/ | MyChart | Digestive Health | Duy Kat, | Next Appt. | | 2019 | Encounter | Center at [facility] [address] | [address] | | | | | [address] | [facility] | | | | | Mailcode: Center | [place], [place] | | | | | [facility] and | [address] | | | | | [facility] 2 | [phone] | | | | | [place], [place] | | | | | | [address] | | | | | | [phone] | | | +--------+ + + + [...]
--- OUTSIDE RECORDS SUMMARY | ~2019-03-11 | XMS | Encounter Summary ---
Demographics + + + | Address | [address] | | | [place] [address] | + + + | Home Phone | | + + + | Preferred Language | Unknown | + + + | Marital Status | | + + + | Episcopal Affiliation | 1061 | + + + | Race | Unknown | + + + | Ethnic Group | Unknown | + + + Author + + + | Author | [facility] | | | and [place] | + + + | Organization | [facility] | | | and [...] [place] | | | | | [address] | | + + + + + | Christy Flaherty | ECON | [address] | | | | | [place] | | | | | [address] | | + + + + + Care Team Providers + +------+ + | Care Registered Sales Assistant Name | Role | Phone | + [...] Description | +--------+---------+ + + + | 10/28/ | Office | [facility] | [place] | Contusion of right | | 2012 | Visit | OCCUPATIONAL HEALTH | [address] | hand (Primary Dx); | | | | [address] | [facility] | Soft tissue mass; | | | | [address] [facility] | [place] [address] | Place of occurrence, | | | | [place], [place] | [phone] | industrial places | | | | [address] | | and premises | | | | [phone] | | | +--------+---------+ + + + [...] + + + | Blood Pressure | 128/78 | 10/28/2012 8:04 AM | | | | | PDT | | + + + + + | Pulse | 72 | 10/28/2012 8:04 AM | | | | | PDT | | + + + + + | Temperature | 36.5 C (97.7 F) | 10/28/2012 8:04 AM | | | | | PDT | | + + + + + | Respiratory Rate | 16 | 10/28/2012 8:04 AM | | | | | PDT | | + + + + + | Oxygen Saturation | - | - | | + + + + + | Inhaled Oxygen | - | - | | | Concentration | | | | + + + + + | Weight | 98 kg (216 lb) | 10/28/2012 8:04 AM | | | | | PDT | | + + + + + | Height | 170.2 cm (5' 7") | 10/28/2012 8:04 AM | | | | | PDT | | + + + + + | Body Mass Index | 33.83 | 10/28/2012 8:04 AM | | | | | PDT | | + + + + + documented in this encounter Progress Notes [place] MD - 10/28/2012 8:46 AM PDTSee dictation [id number] christopher d by [place] MD at 10/28/2012 8:47 AM [place] MD - 10/29/19 13 12:00 AM PDT OCCUPATIONAL MEDICINE [address] [place] [address] [place] [address] FAX: [phone] OFFICE VISIT BACKGROUND INFORMATION Claim No.: [id number] Date of injury: 08/18/2012 Employer: [employer] Guarantor: Quynh COMPLAINT: Right heart injury, scheduled followup. S: The injured worker is 47 years of age, here for a scheduled followup. He is doing reas onably well. He has not noticed any change in the soft tissue mass in the palm of his right hand where the injury had occurred. He is inclined to just close the claim as it is not giv ing him any troubles, but indicates that his concern is elevated because he has a history o f having had a ganglion cyst on his foot in the past, which ended up causing quite a bit of problems until it was surgically removed. He is doing his regular work and has no other co ncerns or new development of symptoms. OBJECTIVE: VITAL SIGNS: Unremarkable. No acute distress. EXTREMITIES: Examination right hand, normal to inspection with the exception of the soft tissue mass that is located near the distal martin crease, more or less between the index an d middle fingers. The general appearance of this would appear to be a granulomatous type of reaction. It certainly does not have characteristics of a typical ganglion cyst. There is no erythema. There is no tenderness. There is no restriction of range of motion. His wrist, hand and finger movements are all normal with good distal neurocirculatory response. IMAGING/DIAGNOSTICS: None indicated based on our evaluation this date. PENDING INTERVENTIONS: Continue conservative or expectant observation of this and recheck p.r.n. development of problems. He was comfortable with this. A: CONTUSION TO THE RIGHT HAND WITH TRAUMATIZATION THAT HAS CAUSED A LOCALIZED, APPROXIMAT JACKY 1-1.5 CM GRANULOMATOUS SOFT TISSUE MASS WITHOUT OTHER ACUTE FINDINGS. P: He will be allowed to continue with all regular activities. He is certainly encouraged to return should there be a problem, but my guess is that this granulomatous tissue will no t change significantly or perhaps gradually show elements of resolution over the course of many, many months. Certainly if there is problems he can recheck. He voiced understanding a nd agreement. E: Regular work. R: No work restrictions. No impairment as a consequence of this injury or the residuals. N o need for work accommodations or vocational services. He is released from care with follow up p.r.n. only. Hollie Brooks MD / SB JOB #: [id number] signed by [place] MD at 10/28/2012 10:52 AM PDTd ocumented in this encounter Plan of Treatment Not on filedocumented as of this encounter Visit Diagnoses + + | Diagnosis | + + | Contusion of right hand - Primary Contusion of hand(s) | + + | Soft tissue mass Disorders of soft tissue, unspecified | + + | Place of occurrence, industrial places and premises | + + documented in this encounter
--- OUTSIDE RECORDS SUMMARY | ~2019-03-11 | XMS | Encounter Summary ---
Demographics + + + | Address | [address] | | | [place] [address] | + + + | Home Phone | | + + + | Preferred Language | Unknown | + + + | Marital Status | | + + + | Alevism Affiliation | ASG | + + + | Race | White | + + + | Ethnic Group | Not or | + + + Author + + + | Author | [facility] | + + + | Organization | [facility] | + + + | Address | Unknown | + + + | Phone | Unavailable | + + + Support + + + + + | Name | Relationship | Address | Phone | + + + + + | Christy Flaherty | ECON | [address] | | | | | [place] | | | | | [address] | | + + + + + Care Team Providers + +------+ + | Care Glass Or Mirror Inspector Name | Role | Phone | + +------+ + | Jarvis Willard MD | PCP | | + +------+ + Encounter Details +--------+ + + + + | Date | Type | Department | Care Team | Description | +--------+ + + + + | 02/26/ | Procedure | Radiology/Imaging | | | | 2017 | Pass | Lab at [facility] [address] | | | | | | [place] Mailcode: | | | | | | [facility] | | | | | | Health and Healing, | | | | | | [facility] | | | | | | Floor [place], [place] | | | | | | [address] | | | | | | [phone] | | | +--------+ + + + [...]
--- OUTSIDE RECORDS SUMMARY | ~2019-03-11 | XMS | Encounter Summary ---
Demographics + + + | Address | [address] | | | [place] [address] | + + + | Home Phone | | + + + | Preferred Language | Unknown | + + + | Marital Status | | + + + | Druze Affiliation | 1061 | + + + | Race | Unknown | + + + | Ethnic Group | Unknown | + + + Author + + + | Author | [facility] | | | and [place] | + + + | Organization | [facility] | | | [...] [place] | | | | | [address] | | + + + + + | Christy Flaherty | ECON | [address] | | | | | [place] | | | | | [address] | | + + + + + Care Team Providers + +------+ + | Care Payroll And Benefits Specialist Name | Role | Phone | + +------+ + | Juan Demarco MD | PCP | | + +------+ + Encounter Details +--------+ + + + + | Date | Type | Department | Care Team | Description | +--------+ + + + + | 08/07/ | Transcribed | [place] | Kimo Baum, | Convulsions, | | 2015 | Orders | [facility] | MD [address] | unspecified | | | | CENTER [address] | convulsion type | | | | [place], [place] | [place] [address] | ([facility]) (Primary Dx) | | | | [address] | [phone] | | | | | [phone] | | | +--------+ + + + [...] + | Butch Cosby MD 08/13/2014 7:46 [facility] | | Services ELECTROENCEPHALOGRAM PATIENT INFORMATION Patient name: | | | Daysi Flaherty Date of : | | | 1965 Referring Physician: Kimo Baum MD Interpreting | | | Physician: Butch Cosby Date/Time of Study: 08/10/14, 1100 | | | TECHNICAL INFORMATION EEG Number: [id number] Electrode Placement: The | | | electroencephalogram was recorded with a [employer] SA EEG | | | recording/reading station, using [...]
--- OUTSIDE RECORDS SUMMARY | ~2019-03-11 | XMS | Encounter Summary ---
Demographics + + + | Address | [address] | | | [place] [address] | + + + | Home Phone | | + + + | Preferred Language | Unknown | + + + | Marital Status | | + + + | Cheondoism Affiliation | ASG | + + + | Race | White | + + + | Ethnic Group | Not or | + + + Author + + + | Author | [facility] | + + + | Organization | [facility] | + + + | Address | Unknown | + + + | Phone | Unavailable | + + + Support + + + + + | Name | Relationship | Address | Phone | + + + + + | Christy Flaherty | ECON | [address] | | | | | [place] | | | | | [address] | | + + + + + Care Team Providers + +------+ + | Care Purchasing Expeditor Name | Role | Phone | + +------+ + | Filippo Chen DO | PCP | | + +------+ + Reason for Visit + + + | Reason | Comments | + + + | Epilepsy | Referral to [facility] | + + + Encounter Details +--------+ + + + + | Date | Type | Department | Care Team | Description | +--------+ + + + + | 12/08/ | Documentati | Neurology at | Carla Chicas MD | Epilepsy (Referral | | 2016 | on | [facility] & | [address] | to ) | | | | Healing [address] | Jayshree Santillan [place], | | | | | [place] Mailcode: | [place] [address] | | | | | [facility] | [phone] | | | | | Health and Healing, | | | | | | [facility] | | | | | | [facility], [place] | | | | | | [address] | | | | | | [phone] | | | +--------+ + + + [...] as of this encounter Plan of Treatment + + +--------+ + + | Name | Type | Priori | Associated Diagnoses | Order Schedule | | | | ty | | | + + +--------+ + + | NEUROLOGY SOCIAL | Procedures | Routin | Intractable | Ordered: 12/09/2015 | | WORK REFERRAL | | e | epilepsy without | | | | | | status epilepticus, | | | | | | unspecified epilepsy | | | | | | type (HCC) | | + + +--------+ + + documented as of this encounter Visit Diagnoses + + | Diagnosis | + + | 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
--- OUTSIDE RECORDS SUMMARY | ~2019-03-11 | XMS | Encounter Summary ---
Demographics + + + | Address | [address] | | | [place] [address] | + + + | Home Phone | | + + + | Preferred Language | Unknown | + + + | Marital Status | | + + + | Mu-Ism Affiliation | ASG | + + + | Race | White | + + + | Ethnic Group | Not or | + + + Author + + + | Author | [facility] | + + + | Organization | [facility] | + + + | Address | Unknown | + + + | Phone | Unavailable | + + + Support + + + + + | Name | Relationship | Address | Phone | + + + + + | Christy Flaherty | ECON | [address] | | | | | [place] | | | | | [address] | | + + + + + Care Team Providers + +------+ + | Care Store Sales Consultant Name | Role | Phone | + +------+ + | Filippo Cehn DO | PCP | | + +------+ + Reason for Visit + + + | Reason | Comments | + + + | Outside Records | 05/07/2017 Serum Trypsin Results- [facility] | | Received | | + + + Encounter Details +--------+ + + + + | Date | Type | Department | Care Team | Description | +--------+ + + + + | 05/13/ | Abstract | Digestive Health | [facility], | Outside Records | | 2018 | | Center at [facility] [address] | [address] | Received (05/07/2017 | | | | [address] | [address] | Serum Trypsin | | | | Mailcode: Center | [place], [place] | Results- [facility]) | | | | for Health and | [address] | | | | | [facility] | [phone] | | | | | [place], [place] | | | | | | [address] | | | | | | [phone] | | | +--------+ + + + [...]
--- OUTSIDE RECORDS SUMMARY | ~2019-03-11 | XMS | Encounter Summary ---
Demographics + + + | Address | [address] | | | [place] [address] | + + + | Home Phone | | + + + | Preferred Language | Unknown | + + + | Marital Status | | + + + | Buddhism Affiliation | 1061 | + + + | Race | Unknown | + + + | Ethnic Group | Unknown | + + + Author + + + | Author | [facility] | | | and [place] | + + + | Organization | [facility] | | | [...] [place] | | | | | [address] | | + + + + + | Christy Flaherty | ECON | [address] | | | | | [place] | | | | | [address] | | + + + + + Care Team Providers + +------+ + | Care Administration Clerk Name | Role | Phone | + +------+ + | Juan Demarco MD | PCP | | + +------+ + Encounter Details +--------+ + + + + | Date | Type | Department | Care Team | Description | +--------+ + + + + | 01/10/ | Hospital | [facility] | Conversion | | | 2015 | [facility] | [facility] | Transaction, | | | | | OUTPATIENT | Provider Unknown | | | | | PROCEDURES [address] | [address] | (Fax) | | | | | [place], [place] | | | | | | [address] | | | | | | [phone] | | | +--------+ + + + [...]
--- OUTSIDE RECORDS SUMMARY | ~2019-03-11 | XMS | Encounter Summary ---
Demographics + + + | Address | [address] | | | [place] [address] | + + + | Home Phone [...] [place] | | | | | [phone] | | + + + + + Care Team Providers + +------+ + | Care Leather Coater Name | Role | Phone | + [...] + + + + | 12/16/ | Hospital | [facility] [address] | Carla Chicas MD | | | 2016 - | Encounter | [address] [place] | [address] | | | | | [address] | [place], | | | 12/22/ | | [facility] | [place] [address] | | | 2015 | | [place], [place] | [phone] | | | | | [address] | | | | | | [phone] | Anthony De La O MD | | | | | | [address] | | | | | | [place], [place] | | | | | | [address] | | | | | | [phone] | | | | | | | [...] + + + | Blood Pressure | 105/65 | 12/23/2015 7:29 AM | | | | | PDT | | + + + + + | Pulse | 71 | 12/23/2015 7:29 AM | | | | | PDT | | + + + + + | Temperature | 36.6 C (97.9 F) | 12/23/2015 7:29 AM | | | | | PDT | | + + + + + | Respiratory Rate | 18 | 12/23/2015 7:29 AM | | | | | PDT | | + + + + + | Oxygen Saturation | 93% | 12/23/2015 7:29 AM | | | | | PDT | | + + + + + | Inhaled Oxygen | - | - | | | Concentration | | | | + + + + + | Weight | 115.2 kg (254 lb) | 12/17/2015 8:01 AM | | | | | PDT | | + + + + + | Height | 177.8 cm (5' 10") | 12/17/2015 8:01 AM | | | | | PDT | | + + + + + | Body Mass Index | 36.45 | 12/17/2015 8:01 AM | | | | | PDT | | + + + + + documented in this encounter Discharge Summaries Marita Hernandez MD,MPH - 12/20/2015 8:59 AM PDTFormatting of this note might be differ ent from the original. EPILEPSY MONITORING UNIT DISCHARGE SUMMARY Author: Amador Mayorga NP Attending Physician: Anthony De La O MD PCP: Filippo Chen DO Referring MD: Noe Arambula MD Admit Date: 12/17/2015 Discharge Date: 12/23/2015 This is a brief summary of the patient's admission. A more detailed discharge letter will b e sent to the referring provider by the attending physician. If you have access to [facility] [employer] this letter will be available in the Encounters tab labeled "Other-EMU Discharge Summary" s hortly after the patient's discharge. Reason for Admission: Daysi Flaherty is a 50 y.o. male admitted for diagnostic 24-hour video EEG monitoring in the [facility] Comprehensive Epilepsy Monitoring Unit. Hospital Course: The patient was monitored on 24-hour continuous EEG monitoring during his entire admission. We tapered the patient's anti-epileptic medicines and sleep deprived him i n order to induce seizures. Despite these efforts, no typical events or seizures were captur ed. No focal or epileptiform abnormalities were seen. During this admission, we continued the patient's home medicines. We treated the patient's tooth pain with Lattimore, magic mouthwash, Tylenol. We treated constipation with colace. We mon itored him continuously on telemetry for safety purposes due to his history of secondarily g eneralized tonic clonic seizures. Of note, night monitoring was notable for frequent desaturations, apneas, and EEG showed fr equent arousals; this is very concerning for sleep apnea. He has sleep testing pending on d isch. CXR performed this admission for the desaturations and subjective shortness of br eath was unremarkable. Daysi Flaherty Home Medication Instructions ENDER:[id number] Printed on:12/23/15 1022 Medication Information acetaminophen 325 mg oral tablet Take 325 mg by mouth every four hours as needed (pain). divalproex DR 500 mg oral tablet,delayed release (DR/EC) Take 2 tablets by mouth two times daily. ERGOCALCIFEROL, VITAMIN D2, (VITAMIN D ORAL) Take 50,000 Units by mouth every seven days. Takes every Wednesday folic acid 1 mg oral tablet Take 1 mg by mouth once daily. HYDROcodone-acetaminophen 10-325 mg oral tablet Take 1 tablet by mouth every six hours as needed (arthritis pain, tooth ache). lamoTRIgine 25 mg oral tablet 25 mg every other day for two weeks Indications: COMPLEX-PARTIAL EPILEPSY methotrexate 2.5 mg oral tablet Take 10 mg by mouth every seven days. Takes every Indications: PSORIATIC ARTHRITI S mometasone 0.1 % topical cream Apply 1 applicator to affected area once daily. Apply a thin film to ears daily (indication : psoriasis) penicillin v potassium 500 mg oral tablet Take 250 mg by mouth two times daily. Indications: RHEUMATIC FEVER PREVENTION special mouthwash (Maalox/lidocaine/diphenhydrAMINE) oral suspension (compound) Take 10 mL by mouth four times daily as needed. 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 The patient was discharged home in good condition. Follow-up: DO Marita García MD,MPH Epilepsy Monitoring Unit documented in this encounter Medications at Time [...] + + documented as of this encounter Progress Notes Marita Hernandez MD,MPH - 12/23/2015 9:37 AM PDTFormatting of this note might be differ ent from the original. EMU Attending Progress Note - Hospital day 6 EMU indication/diagnosis: Daysi Flaherty is a 50 yr-old male with a h/o refractory sei zures with suspicion that they are linked with left temporal cavernoma. The goal of the admi ssion is to capture one or more of his events to determine if they electrographically locali ze to area of his cavernoma. 24-Hour events: No seizures, no events. Feels frustrated that he had no events. Had questions about medic ations and hospital follow up. Current Facility-Administered Medications Medication Dose Route Frequency acetaminophen (TYLENOL) tablet 325-650 mg 325-650 mg oral Q4H PRN chlorhexidine (PERIDEX) mouthwash 15 mL 15 mL oral QID diphenhydrAMINE (BENADRYL) capsule 25 mg 25 mg oral Q6H PRN ysqdavzzpvQMITJ-[id number] (SPECIAL MOUTHWASH) suspension (compound) 5-10 mL 5-1 0 mL oral QID PRN divalproex DR (DEPAKOTE) tablet 1,000 mg 1,000 mg oral BID docusate sodium (COLACE) capsule 100 mg 100 mg oral BID ergocalciferol (VITAMIN D2, DRISDOL) capsule 50,000 Units 50,000 Units oral Q7D folic acid (FOLVITE) tablet 1 mg 1 mg oral DAILY HYDROcodone-acetaminophen (NORCO) 10-325 mg 1-2 tablet 1-2 tablet oral Q6H PRN methotrexate tablet 10 mg 10 mg oral Q7D mometasone (ELOCON) 0.1 % cream 1 Film 1 Film topical DAILY ondansetron (ZOFRAN) tablet 4 mg 4 mg oral Q12H PRN penicillin v potassium (VEETID) tablet 250 mg 250 mg oral BID Objective: Last 24 hour min/max Temp: 36.6 C (97.9 F) Temp Min: 36.6 C (97.9 F) Max: 36.8 C (98.2 F) Pulse: 71 Pulse Min: 68 Max: 82 Resp: 18 Resp Min: 12 Max: 18 BP: 105/65 mmHg BP Min: 103/87 Max: 127/72 SpO2: 93 % SpO2 Min: 91 % Max: 94 % Body mass index is 36.45 kg/(m^2). Exam: Neurological exam is stable from prior exams. Daysi Flaherty continues to be appropriat ilda conversational; he is able to ambulate independently (with supervision as per EMU protoc ol) to the restroom as per his baseline functioning. Video EEG: Reviewed by Dr. Anthony De La O. Details have been entered in a separate [facility] clinical neurophysiology procedure report. Assessment/Plan (by problem): Mr. 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 He has not has any of his typical events yet despite being tapered off of his antiepileptic medication and sleep deprivation. Localizing the source of his events will be important to determine whether surgical removal of the cavernoma is like ly to result in seizure remission. He did well overnight but did not have any events, again. He did have a few episodes of hypnic jerks from sleep at at least one episode of gasping fo r air from sleep but his oxygenation overnight off of O2 was stable and remained above 88%. I again impressed upon them the importance of getting and staying compliant with treatment f or sleep apnea. We reviewed safety issues today including no driving until seizures more stable and apnea t reated, and especially water safety issues. EMU indication / diagnosis: G40.21 Localization-related (focal) (partial) symptomatic epile psy and epileptic syndromes with complex partial seizures, intractable, without status epile pticus, presurgical Plan: 1. DC EEG 2. Anti-seizure medication plan: 12/16: Depakote 1000 mg BID reduce to 500 mg BID 12/17: reduce Depakote to 250 mg BID 12/18: Depakote 250 mg QAM 12/19: Stop Depakote 12/20: continue off depakote, restart tomorrow at 1000 mg tid x 1 day then 1000 mg bid esteban nued outpt dosage 12/21: restarting depakote 1000 mh tid today and home on 1000 mg bid, to start LTG tomorrow at home as previously prescribed with slow uptitration due to his being on valproate 3. Continue Lattimore for pain. 4. Telemetry monitoring given cardiac history and h/o GTCs 5. Neuropsych testing as an outpatient 6. Outpatient sleep study 7. Follow up in clinic with Dr. Dixon Medical need for inpatient status: Daysi Flaherty requires continued inpatient EEG monitoring d ue to altered seizure medication doses and/or need for safety measures for the purpose of re cording patient events and interictal EEG background. During rounds today I addressed the following areas with the patient and/or family: Diagnosis - reason for admission: Yes Investigations - planned for the day: Yes Goals for the day Patient/Family goals: Yes Provider goals: Yes Inquire - questions were solicited from patient/family: Yes Condition - current condition of the patient: Yes Expected outcome - as understood currently: Yes I spent greater than 30 minutes in the care of this patient. Greater than 50% of the time w as spent counseling the patient regarding the above issues and/or coordinating care. This ti me was independent of the time spent reviewing the EEG record. Marita Hernandez MD,MPH Residential Property Manager, Epilepsy Specialist [facility] Department of Neurology [facility] DEPARTMENT: Neurology Epilepsy Attending - [phone] Place of Service: Date of Service: 12/23/2015 CSN: [id number] Suggested Modifier: GC - Resident Present Suggested EEG CPT: 43823 - EEG Video, (12 - 24 hours) Suggested E/M and Procedure CPT: 29382 - Hospital Discharge, >30 minutes Suggested Diagnosis: G40.209 Localization-related (focal) (partial) symptomatic epilepsy a nd epileptic syndromes with complex partial seizures, not intractable, without status epilep ticus Nury Blackwell RN - 12/22/2015 2:36 PM [place] reports a few incidences of jerking awake in the las t 1 1/2 hours, no other neurological symptoms. He stated that he bite his tongue during one of these episodes but did not break the skin. Given special mouthwash and told to alert nurs ing staff if he has another episode. Electronically signed by Aure Guthrie RN at 11/28 2:38 PM Thom Shepherd MD - 12/22/2015 11:10 AM PDTFormatting of this note migh t be different from the original. Epilepsy Attending Progress Note Subjective: Mr. Flaherty is a 50 yr-old male with a h/o refractory seizures with suspicion khadijah t they are linked with left temporal cavernoma. The goal of the admission is to capture one or more of his events to determine if they electrographically localize to area of his cavern dayana. He had no events over the past 24-hrs and no complaints. Current Facility-Administered Medications Medication Dose Route Frequency acetaminophen (TYLENOL) tablet 325-650 mg 325-650 mg oral Q4H PRN chlorhexidine (PERIDEX) mouthwash 15 mL 15 mL oral BID diphenhydrAMINE (BENADRYL) capsule 25 mg 25 mg oral Q6H PRN ojsktwjdjkODIMM-frrwxqpym-[id number] (SPECIAL MOUTHWASH) suspension (compound) 5-10 mL 5-1 0 mL oral QID PRN divalproex DR (DEPAKOTE) tablet 1,000 mg 1,000 mg oral TID [START ON 12/23/2015] divalproex DR (DEPAKOTE) tablet 1,000 mg 1,000 mg oral BID docusate sodium (COLACE) capsule 100 mg 100 mg oral BID ergocalciferol (VITAMIN D2, DRISDOL) capsule 50,000 Units 50,000 Units oral Q7D folic acid (FOLVITE) tablet 1 mg 1 mg oral DAILY HYDROcodone-acetaminophen (NORCO) 10-325 mg 1-2 tablet 1-2 tablet oral Q6H PRN methotrexate tablet 10 mg 10 mg oral Q7D mometasone (ELOCON) 0.1 % cream 1 Film 1 Film topical DAILY ondansetron (ZOFRAN) tablet 4 mg 4 mg oral Q12H PRN penicillin v potassium (VEETID) tablet 250 mg 250 mg oral BID BP 109/64 | Pulse 78 | Temp 36.7 C (98.1 F) | RR 12 | Ht 1.778 m (5' 10") | Wt 115.214 kg (254 lb) | SpO2 93% | BMI 36.45 kg/(m^2) Neurological exam shows that he is fully awake and alert. His affect was appropriate and he was a fluent and consistent historian. CV- RRR with murmur Pulm- clear bilaterally EOMI, no facial asymmetries appreciated.motor 5/5 throughout and reflexes symmetric. Video EEG: I personally reviewed the Video-EEG from 07:03 on 12/20 to 07:01 on 12/21. Details have been entered in the separate clinical neurophysiology report. Interictal Record: The record shows a low amplitude symmetric, well-formed and sustained, p osterior dominant rhythm of 9-10 Hz which attenuates with eye opening. N1 and N2 stage sleep were seen and were characterized by symmetric sleep spindles, vertex waves, and K-complexes . No clear epileptiform discharges are recorded. Events/Seizures: No events or seizures are recorded. EKG: The single-channel EKG recording shows sinus rhythm. Interpretation: This is a normal awake and asleep EEG. No epileptiform discharges or electr ographic seizures were recorded. 24-hr EKG telemetry was reported as being unremarkable. CXR from yesterday unremarkable. Assessment: Mr. 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 He has not has any of his typical events yet despite being tapered off of his antiepileptic medication and sleep deprivation. Localizing the source of his events will be important to determine whether surgical removal of the cavernoma is like ly to result in seizure remission. He did well overnight but did not have any events. He was restarted on his valproate this m orning (1000 mg bid) and will get an extra 1000 mg midday today in preparation for discharge tomorrow. He did have a few episodes of hypnic jerks from sleep at at least one episode of gasping fo r air from sleep but his oxygenation overnight off of O2 was stable and remained above 88%. I again impressed upon them the importance of getting and staying compliant with treatment f or sleep apnea. We reviewed safety issues today including no driving until seizures more stable and apnea t reated, and especially water safety issues. EMU indication / diagnosis: G40.21 Localization-related (focal) (partial) symptomatic epile psy and epileptic syndromes with complex partial seizures, intractable, without status epile pticus, presurgical Plan: 1. Renew continuous Video-EEG monitoring for the next 24 hours. 2. Anti-seizure medication plan: 12/16: Depakote 1000 mg BID reduce to 500 mg BID 12/17: reduce Depakote to 250 mg BID 12/18: Depakote 250 mg QAM 12/19: Stop Depakote 12/20: continue off depakote, restart tomorrow at 1000 mg tid x 1 day then 1000 mg bid esteban shankar outpt dosage 12/21/: restarting depakote 1000 mh tid today and home on 1000 mg bid, to start LTG tomorrow at home as previously prescribed with slow uptitration due to his being on valproate 3. Continue Lattimore for pain. 4. Telemetry monitoring given cardiac history and h/o GTCs 5. Neuropsych testing as an outpatient Medical need for inpatient status: Daysi Flaherty requires continued inpatient EEG monitoring d ue to altered seizure medication doses and/or need for safety measures for the purpose of re cording patient events and interictal EEG background. Thom Poon M.D., Ph.D. During rounds today I addressed the following areas with the patient and/or family: Diagnosis - reason for admission: Yes Investigations - planned for the day: Yes Goals for the day Patient/Family goals: Yes Provider goals: Yes Inquire - questions were solicited from patient/family: Yes Condition - current condition of the patient: Yes Expected outcome - as understood currently: Yes I saw and examined the patient with the neurology resident on-call, Dr. Meka Morton, and ag ree with her assessment and plan. I spent greater than 15 minutes in the care of this monae ent. Greater than 50% of the time was spent counseling the patient regarding the above issue s and/or coordinating care. This time was independent of the time spent reviewing the EEG re cord. [facility] DEPARTMENT: Neurology Epilepsy Attending - [phone] Place of Service: - Date of Service: 12/22/15 [facility]: [id number] Suggested Modifier: 25 - Separate E/M service performed by provider (or other steam brush operator) on same day as procedure Suggested EEG CPT: 51941 - EEG Video, (12 - 24 hours) Suggested E/M and Procedure CPT: 08748 - Low complexity, (15 minutes >50% counseling and c oordination of care) Suggested Diagnosis: G40.21 Localization-related (focal) (partial) symptomatic epilepsy an d epileptic syndromes with complex partial seizures, intractable, without status epilepticus , presurgical Aure Blackwell RN - 12/22/2015 10:39 AM PDTEEG tech in and reattched loose leads. AED medications restarted this morning. Daysi stating tooth pain is well controlled this morning. Thom Shepherd MD - 12/21/2015 2:14 PM PDT Epilepsy Attending Progress Note Subjective: Mr. Flaherty is a 50 yr-old male with a h/o refractory seizures with suspicion khadijah t they are linked with left temporal cavernoma. The goal of the admission is to capture one or more of his events to determine if they electrographically localize to area of his cavern dayana. If this were the case he may be a good surgical candidate. While his seizures are infre quent they interfere with his ability to drive and limit employment opportunities. He did not have any of his typical events overnight. There were multiple pushbutton events on his EEG but they were confirmed to be accidentally and not related to events. Nursing rep orted this AM that he had some type of event at 0230. I reviewed this electrographically and with him and his . He is seen to have some right leg shaking under the covers and is re peatedly saying "happy couple, happy couple, ..." He reports having a dream in which some mi ce were repeating this phrase. His was in the room and both she and the pt. state this was not like one of his events and after reviewing all the information the event is most con sistent with a dream. In the AM when both the resident and I were examining (nursing and his also present) he had a stretching event which at first we were concerned might be an e vent but once we got him fully awake both he and his felt strong this was not an event and was just his typical stretching upon awakening in the AM. His significant drowsiness and daytime sleepiness prompted a discussion about sleep apnea. He had a sleep study in 2003 and told that his apnea was not severe enough to warrant having his insurance pay for therapy (likely less than 15 events/hr). However, he has subsequently gained 50 lbs and has seen a sleep specialist in [place] who feels he has a high probabil ity for having severe sleep apnea. He has a sleep study scheduled for early December. He also reports he sometimes awakens gasping for air. The final issue that arose over the past 24 hrs was that nursing noted he had some oxygen d esats into the high 80's and at one point was as low as 84%. He has been told in the past at he has some lowered O2 sats. Nursing had put on supplemental oxygen. It should also be no ramsey that he has cardiac valvular heart disease in addition to the highly suspected apneas. O edgar, it does not seem to be worse today than what he reports at baseline. There is no ass ociated chest pain or other symptoms. Current Facility-Administered Medications Medication Dose Route Frequency acetaminophen (TYLENOL) tablet 325-650 mg 325-650 mg oral Q4H PRN chlorhexidine (PERIDEX) mouthwash 15 mL 15 mL oral BID diphenhydrAMINE (BENADRYL) capsule 25 mg 25 mg oral Q6H PRN yylzczzrmnNGIGU-fyjvnczkn-[id number] (SPECIAL MOUTHWASH) suspension (compound) 5-10 mL 5-1 0 mL oral QID PRN docusate sodium (COLACE) capsule 100 mg 100 mg oral BID ergocalciferol (VITAMIN D2, DRISDOL) capsule 50,000 Units 50,000 Units oral Q7D folic acid (FOLVITE) tablet 1 mg 1 mg oral DAILY HYDROcodone-acetaminophen (NORCO) 10-325 mg 1-2 tablet 1-2 tablet oral Q6H PRN methotrexate tablet 10 mg 10 mg oral Q7D mometasone (ELOCON) 0.1 % cream 1 Film 1 Film topical DAILY ondansetron (ZOFRAN) tablet 4 mg 4 mg oral Q12H PRN penicillin v potassium (VEETID) tablet 250 mg 250 mg oral BID BP 118/70 | Pulse 74 | Temp 36.5 C (97.7 F) | RR 16 | Ht 1.778 m (5' 10") | Wt 115.214 kg (254 lb) | SpO2 93% | BMI 36.45 kg/(m^2) Neurological exam initially showed he to be quite tired but after some verbal stimulation h main gradually became fully alert and interactive. His affect was appropriate and he was a flue nt and consistent historian. CV- RRR with murmur Pulm- clear bilaterally HEENT- Mallampatti III EOMI, no facial asymmetries appreciated.motor 5/5 throughout and reflexes symmetric. Video EEG: I personally reviewed the Video-EEG from 07:03 on 12/19 to 07:02 on 12/20. Details have been entered in the separate clinical neurophysiology report. Interictal Record: The record shows a low amplitude symmetric, well-formed and sustained, p osterior dominant rhythm of 9-10 Hz which attenuates with eye opening. N1 and N2 stage sleep were seen and were characterized by symmetric sleep spindles, vertex waves, and K-complexes . No clear epileptiform discharges are recorded. Events/Seizures: No events or seizures are recorded. EKG: The single-channel EKG recording shows a normal sinus rhythm. Interpretation: This is a normal awake and asleep EEG. No epileptiform discharges or electr ographic seizures were recorded. 24-hr EKG telemetry was reported as being unremarkable with no events. Assessment: Mr. 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 He has not has any of his typical events yet despite being tapered off of his antiepileptic medication and sleep deprivation. Localizing the source of his events will be important to determine whether surgical removal of the cavernoma is like ly to result in seizure remission. He does appear to be at very high risk for substantial sleep apnea. Given his 50 lb weight- gain (for every 1% increase in weight there is typically a 3% increase in severity of apnea) and he has a narrow airway in the setting of significant daytime tiredness, snoring, and ga sping for air. His nighttime desats are also likely secondary to his apnea so getting this t reated will be very important. As a precaution, he will get a portable chest x-ray although the likelihood of infection is low without fever, or other symptoms. I impressed upon him an d his the importance of getting his apnea treated. As long as he is predominantly satin g greater than 88% during the night there is no indication for more urgent treatment beyond what is already scheduled. He does have an infected tooth. The temporary filling placed by [facility] is working very well a nd he has had a substantial reduction in pain. The filling appears to be secure with low ris k of dislodgement if he were to have a seizure. He is scheduled to have the tooth pulled thi s coming week. He is also on chronic antibiotics for his h/o rheumatic fever. EMU indication / diagnosis: G40.21 Localization-related (focal) (partial) symptomatic epile psy and epileptic syndromes with complex partial seizures, intractable, without status epile pticus, presurgical Plan: 1. Renew continuous Video-EEG monitoring for the next 24 hours. 2. Anti-seizure medication plan: 12/16: Depakote 1000 mg BID reduce to 500 mg BID 12/17: reduce Depakote to 250 mg BID 12/18: Depakote 250 mg QAM 12/19: Stop Depakote 12/20: continue off depakote, restart tomorrow at 1000 mg tid x 1 day then 1000 mg bid esteban nued outpt dosage 3. Continue Lattimore for pain. 4. Telemetry monitoring given cardiac history and h/o GTCs 5. Neuropsych testing as an outpatient 6. Plan is to have him start LTG, which he already has at home but has not started taking, when he gets home from this admission per previous instructions. Medical need for inpatient status: Daysi Flaherty requires continued inpatient EEG monitoring d ue to altered seizure medication doses and/or need for safety measures for the purpose of re cording patient events and interictal EEG background. Thom Poon M.D., Ph.D. During rounds today I addressed the following areas with the patient and/or family: Diagnosis - reason for admission: Yes Investigations - planned for the day: Yes Goals for the day Patient/Family goals: Yes Provider goals: Yes Inquire - questions were solicited from patient/family: Yes Condition - current condition of the patient: Yes Expected outcome - as understood currently: Yes I saw him with the neurology resident on-call and discussed his assessment and plan. I spen t greater than 35 minutes in the care of this patient. Greater than 50% of the time was spen t counseling the patient regarding the above issues and/or coordinating care. This time was independent of the time spent reviewing the EEG record. 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 He is feeling tired this am but no events suspicio us for seizures at this point. He does complain of headache and tooth pain. He had a classic migraine with visual (migraine) aura. No seizures or seizure auras. Tally of events since admission: No seizures overnight. He reports no auras or minor seizure related feelings. Last 24 hour min/max Temp: 36.3 C (97.3 F) Temp Min: 36.3 C (97.3 F) Max: 36.6 C (97.9 F) Pulse: 66 Pulse Min: 66 Max: 81 Resp: 16 Resp Min: 16 Max: 16 BP: 119/75 mmHg BP Min: 119/75 Max: 141/67 SpO2: 93 % SpO2 Min: 93 % Max: 96 % Body mass index is 36.45 kg/(m^2). Neurological exam is stable from my prior exam. Daysi Flaherty is in good spirits and c ontinues to be appropriately conversational; he is able to ambulate independently (with supe rvision as per EMU protocol) to the restroom as per his baseline functioning. Video EEG: I personally reviewed the Video-EEG from 07:03 on 12/18 to 07:01 on 12/19. Details have been entered in the separate clinical neurophysiology report. Interictal Record: The record shows a low amplitude symmetric, well-modulated, posterior do minant rhythm of 9-10 Hz that attenuates with eye opening. Stage II sleep is characterized b y symmetric sleep spindles, vertex waves, and K-complexes. No clear epileptiform discharges are recorded. EKG artifact is noted. Events/Seizures: No events or seizures are recorded. EKG: The single-channel EKG recording shows a normal sinus rhythm. Interpretation: This is a normal awake and asleep EEG. No epileptiform discharges or electr ographic seizures were recorded. Assessment: Mr. 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 His history sounds consistent with epilepsy and he has a cavernom a in the left temporal lobe which is a highly epileptogenic lesion. He continues to have letty akthrough seizures on good levels of Depakote. Although his seizure frequency is not high, he is unable to drive and is not working at [employer] s time. 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 At this point, if his seizures are coming fro m this lesion, he could potentially be a good surgical candidate, even noting his other eloy rbidities. This admission will be important to help localize his seizures. EMU indication / diagnosis: G40.21 Localization-related (focal) (partial) symptomatic epile psy and epileptic syndromes with complex partial seizures, intractable, without status epile pticus, presurgical Plan: 1. Renew continuous Video-EEG monitoring for the next 24 hours. 2. Anti-seizure medication plan: 12/16: Depakote 1000 mg BID reduce to 500 mg BID 12/17: reduce Depakote to 250 mg BID 12/18: Depakote 250 mg QAM 12/19: Stop Depakote 3. Sleep deprived last night. 4. Continue other home meds 5. Continue Lattimore for pain. 6. Telemetry monitoring given cardiac history and h/o GTCs 7. Neuropsych testing as an outpatient 8. He was going to have LTG started in August however his pharmacy never filled the rx. His n eurologist here at [facility] had then moved so it was never started. Will consider starting this at the end of the admission. Medical need for inpatient status: Daysi Flaherty requires continued inpatient EEG monitoring d ue to altered seizure medication doses and/or need for safety measures for the purpose of re cording patient events and interictal EEG background. PEGGY Arevalo MD During rounds today I addressed the following areas with the patient and/or family: Diagnosis - reason for admission: Yes Investigations - planned for the day: Yes Goals for the day Patient/Family goals: Yes Provider goals: Yes Inquire - questions were solicited from patient/family: Yes Condition - current condition of the patient: Yes Expected outcome - as understood currently: Yes I saw and examined the patient with the neurology team including the nurse practitioner who participated in the preparation of this note. I agree with the note above. I spent greater than 25 minutes in the care of this patient. Greater than 50% of the time was spent counseli ng the patient regarding the above issues and/or coordinating care. This time was independen t of the time spent reviewing the EEG record. Electronically signed Anthony De La O MD. 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 He is feeling tired this am but no events suspicious for seizures at this point. He does complain of headache and tooth pain. He was mildly dizzy and O2 sats were <90%, supplemental O2 was applied with improvement of both issues. Tally of events since admission: No seizures overnight. He reports no auras or minor seizure related feelings. Last 24 hour min/max Temp: 36.3 C (97.4 F) Temp Min: 36.3 C (97.4 F) Max: 36.7 C (98.1 F) Pulse: 60 Pulse Min: 60 Max: 85 Resp: 16 Resp Min: 16 Max: 20 BP: 110/71 mmHg BP Min: 110/71 Max: 125/69 SpO2: 97 % SpO2 Min: 84 % Max: 97 % Body mass index is 36.45 kg/(m^2). Neurological exam is stable from my prior exam. Daysi Flaherty is in good spirits and c ontinues to be appropriately conversational; he is able to ambulate independently (with supe rvision as per EMU protocol) to the restroom as per his baseline functioning. Video EEG: I personally reviewed the Video-EEG from 07:03 on 12/17 to 07:01 on 12/18. Details have been entered in the separate clinical neurophysiology report. Interictal Record: The record shows a low amplitude symmetric, well-modulated, posterior do minant rhythm of 9-10 Hz that attenuates with eye opening. Stage II sleep is characterized b y symmetric sleep spindles, vertex waves, and K-complexes. No clear epileptiform discharges are recorded. EKG artifact is noted. Events/Seizures: No events or seizures are recorded. EKG: The single-channel EKG recording shows a normal sinus rhythm. Interpretation: This is a normal awake and asleep EEG. No epileptiform discharges or electr ographic seizures were recorded. Assessment: Mr. 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 His history sounds consistent with epilepsy and he has a cavernoma in the left temporal lobe which is a highly epileptogenic lesion. He continues to have vernell kthrough seizures on good levels of Depakote. Although his seizure frequency is not high, he is unable to drive and is not working at [employer] time. 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 At this point, if his seizures are coming fro m this lesion, he could potentially be a good surgical candidate, even noting his other eloy rbidities. This admission will be important to help localize his seizures. EMU indication / diagnosis: G40.21 Localization-related (focal) (partial) symptomatic epile psy and epileptic syndromes with complex partial seizures, intractable, without status epile pticus, presurgical Plan: 1. Renew continuous Video-EEG monitoring for the next 24 hours. 2. Anti-seizure medication plan: 12/16: Depakote 1000 mg BID reduce to 500 mg BID 12/17: reduce Depakote to 250 mg BID 12/18: Depakote 250 mg QAM 3. Sleep deprived last night. 4. Continue other home meds 5. Continue Lattimore for pain. 6. Telemetry monitoring given cardiac history and h/o GTCs 7. Neuropsych testing as an outpatient 8. He was going to have LTG started in August however his pharmacy never filled the rx. His n eurologist here at [facility] had then moved so it was never started. Will consider starting this at the end of the admission. Medical need for inpatient status: Daysi Flaherty requires continued inpatient EEG monitoring d ue to altered seizure medication doses and/or need for safety measures for the purpose of re cording patient events and interictal EEG background. PEGGY Arevalo MD During rounds today I addressed the following areas with the patient and/or family: Diagnosis - reason for admission: Yes Investigations - planned for the day: Yes Goals for the day Patient/Family goals: Yes Provider goals: Yes Inquire - questions were solicited from patient/family: Yes Condition - current condition of the patient: Yes Expected outcome - as understood currently: Yes I saw and examined the patient with the neurology team including the nurse practitioner who participated in the preparation of this note. I agree with the note above. I spent greater than 25 minutes in the care of this patient. Greater than 50% of the time was spent counseli ng the patient regarding the above issues and/or coordinating care. This time was independen t of the time spent reviewing the EEG record. Electronically signed Anthony De La O MD. 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 He then slept until abo ut 7 am and is up now again. He is feeling well this am except for tooth pain. No other cons titutional complaints. Tally of events since admission: No seizures overnight. He reports no auras or minor seizure related feelings. Last 24 hour min/max Temp: 36.4 C (97.5 F) Temp Min: 36.4 C (97.5 F) Max: 36.6 C (97.9 F) Pulse: 65 Pulse Min: 65 Max: 71 Resp: 20 Resp Min: 16 Max: 20 BP: 138/72 mmHg BP Min: 124/62 Max: 138/72 SpO2: 94 % SpO2 Min: 93 % Max: 94 % Body mass index is 36.45 kg/(m^2). Neurological exam is stable from my prior exam. Daysi Flaherty is in good spirits and c ontinues to be appropriately conversational; he is able to ambulate independently (with supe rvision as per EMU protocol) to the restroom as per his baseline functioning. Video EEG: I personally reviewed the Video-EEG from 14:20 on 12/16 to 07:01 on 12/17. Details have been entered in the separate clinical neurophysiology report. Interictal Record: The record shows a low amplitude symmetric, well-modulated, posterior do minant rhythm of 9-10 Hz that attenuates with eye opening. Stage II sleep is characterized b y symmetric sleep spindles, vertex waves, and K-complexes. No clear epileptiform discharges are recorded. EKG artifact is noted. Events/Seizures: No events or seizures are recorded. EKG: The single-channel EKG recording shows a normal sinus rhythm. Interpretation: This is a normal awake and asleep EEG. No epileptiform discharges or electr ographic seizures were recorded. Assessment: Mr. Flaherty is a 50 yo right-handed male with refractory focal, probable temporal lobe epilep sy in the setting of left mesial temporal lobe cavernoma referred from his outside neurologi for surgical evaluation. His history sounds consistent with epilepsy and he has a caverno ma in the left temporal lobe which is a highly epileptogenic lesion. He continues to have br eakthrough seizures on good levels of Depakote. Although his seizure frequency is not high, he is unable to drive and is not working at this time. His personal leaning is to have the c avernoma surgically treated if possible, rather than go through additional medication trials . At this point, if his seizures are coming from this lesion, he could potentially be a good surgical candidate, even noting his other comorbidities. This admission will be important t o help localize his seizures. EMU indication / diagnosis: G40.21 Localization-related (focal) (partial) symptomatic epile psy and epileptic syndromes with complex partial seizures, intractable, without status epile pticus, presurgical Plan: 1. Renew continuous Video-EEG monitoring for the next 24 hours. 2. Anti-seizure medication plan: 12/16: Depakote 1000 mg BID reduce to 500 mg BID 12/17: reduce Depakote to 250 mg BID 3. Photic stimulation and sleep deprivation as needed-sleep deprive tonight. 4. Continue other home meds 5. Continue L[place]imore for pain. 6. Telemetry monitoring given cardiac history and h/o GTCs 7. neuropsych testing as an outpatient 8. He was going to have LTG started in August however his pharmacy never filled the rx. His n eurologist here at [facility] had then moved so it was never started. Will consider starting this at the end of the admission. Medical need for inpatient status: Daysi Flaherty requires continued inpatient EEG monitoring d ue to altered seizure medication doses and/or need for safety measures for the purpose of re cording patient events and interictal EEG background. PEGGY Arevalo MD During rounds today I addressed the following areas with the patient and/or family: Diagnosis - reason for admission: Yes Investigations - planned for the day: Yes Goals for the day Patient/Family goals: Yes Provider goals: Yes Inquire - questions were solicited from patient/family: Yes Condition - current condition of the patient: Yes Expected outcome - as understood currently: Yes I saw and examined the patient with the neurology team including the nurse practitioner who participated in the preparation of this note. I agree with the note above. I spent greater than 25 minutes in the care of this patient. Greater than 50% of the time was spent counseli ng the patient regarding the above issues and/or coordinating care. This time was independen t of the time spent reviewing the EEG record. Electronically signed Anthony De La O MD. 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 | + +--------+ + + + | CARDIOLOGY | | 12/22/2015 | | Results for this | | | | 12:00 AM | | procedure are in the | | | | PDT | | results section. | + +--------+ + + + | X-RAY PORTABLE CHEST | Routin | 12/21/2015 | | Results for this | | 1 VIEW | e | 12:12 PM | | procedure are in the | | | | PDT | | results section. | + +--------+ + + + | EEG CONTINUOUS, | Routin | 12/21/2015 | | Results for this | | ADULT | e | | | procedure are in the | | | | | | results section. | + +--------+ + + + | CARDIOLOGY | | 12/21/2015 | | Results for this | | | | 12:00 AM | | procedure are in the | | | | PDT | | results section. | + +--------+ + + + | EEG CONTINUOUS, | Routin | 12/20/2015 | | Results for this | | ADULT | e | 11:04 AM | | procedure are in the | | | | PDT | | results section. | + +--------+ + + + | CARDIOLOGY | | 12/20/2015 | | Results for this | | | | 12:00 AM | | procedure are in the | | | | PDT | | results section. | + +--------+ + + + | EEG CONTINUOUS, | Routin | 12/19/2015 | | Results for this | | ADULT | e | | | procedure are in the | | | | | | results section. | + +--------+ + + + | CARDIOLOGY | | 12/19/2015 | | Results for this | | | | 12:00 AM | | procedure are in the | | | | PDT | | results section. | + +--------+ + + + | EEG CONTINUOUS, | Routin | 12/18/2015 | | Results for this | | ADULT | e | | | procedure are in the | | | | | | results section. | + +--------+ + + + | CARDIOLOGY | | 12/18/2015 | | Results for this | | | | 12:00 AM | | procedure are in the | | | | PDT | | results section. | + +--------+ + + + | EEG CONTINUOUS, | Routin | 12/17/2015 | | Results for this | | ADULT | e | | | procedure are in the | | | | | | results section. | + +--------+ + + + | CARDIOLOGY | | 12/17/2015 | | Results for this | | | | 12:00 AM | | procedure are in the | | | | PDT | | results section. | + +--------+ + + + | CARDIOLOGY | | 12/17/2015 | | Results for this | | | | 12:00 AM | | procedure are in the | | | | PDT | | results section. | + +--------+ + + + | EEG ROUTINE | Routin | 12/17/2015 | | Results for this | | | e | | | procedure are in the | | | | | | results section. | + +--------+ + + + documented in this encounter Results EEG CONTINUOUS, ADULT (12/22/2015) + + + | Narrative | Performed At | + + + | Patient Name: Daysi Flaherty Date of : 1965 | [facility] - | | Date of Test: 12/22/2015 Place of | [facility] | | Service: [facility] [phone] - [phone] [facility] Department: EEG [facility] - | POINT OF CARE | | [phone] PRISON VIDEO EEG Start Date/Time: 12/22/15 | TESTS | | End Date/Time: 12/23/15 Telemetry Number: [id number] Please refer to | | | the cumulative long term care administrator EEG report from the first day of this | | | recording period for results. | | + + + + + + + + | Performing | Address | City/State/Zipcode | Phone Number | | Organization | | | | + + + + + | [facility] | [address] | [place], [place] | | | [facility] | [address] | [phone] | | | TESTS | | | | + + + + + CARDIOLOGY (12/22/2015 12:00 AM PDT) + + + | Narrative | Performed At | + + + | | | + + + X-RAY PORTABLE CHEST 1 VIEW (12/21/2015 12:12 PM PDT) + + + + + + | Component | Value | Ref Range | Performed | Pathologist | | | | | At | Signature | + + + + + + | X-RAY | EXAM: LA CHEST 1 VIEW | | | | | PORTABLE | 12/21/15 12:12:00 | | | | | CHEST 1 | HISTORY: Desaturation, | | | | | VIEW | concern for aspiration | | | | | | pneumonia. COMPARISON: | | | | | | None. FINDINGS: | | | | | | Cardiomediastinal | | | | | | silhouette is normal. | | | | | | There is no focal air | | | | | | space opacity,effusion, | | | | | | or pneumothorax. | | | | | | Visualized osseous | | | | | | structures are intact. | | | | | | IMPRESSION: Clear lungs. | | | | | | Attending Radiologists: | | | | | | SHERMAN KENT MDAuthor: | | | | | | SHERMAN KENT MD I | | | | | | personally reviewed the | | | | | | images and, if | | | | | | necessary, edited the | | | | | | report. I agreewith the | | | | | | report as now presented. | | | | | | | | | | | | Final/Electronically | | | | | | signed / SHERMAN KENT | | | | | | 12/21/2015 16:35 PM | | | | + + + + + + + + | Specimen | + + | | + + + +---------+ + + | Performing | Address | City/State/Zipcode | Phone Number | | Organization | | | | + +---------+ + + | [facility] DEPARTMENT OF | | | | | RADIOLOGY | | | | + +---------+ + + EEG CONTINUOUS, ADULT (12/21/2015) + + + | Narrative | Performed At | + + + | Patient Name: Daysi Flaherty Date of : 1965 | [facility] - | | Date of Test: 12/21/2015 Place of | [facility] | | Service: [facility] [phone] - [phone] [facility] Department: EEG [facility] - | POINT OF CARE | | [phone] FINISHER MACHINE VIDEO EEG Start Date/Time: 12/21/15 | TESTS | | End Date/Time: 12/22/15 Telemetry Number: [id number] Please refer to | | | the cumulative long term care administrator EEG report from the first day of this | | | recording period for results. | | + + + + + + + + | Performing | Address | City/State/Zipcode | Phone Number | | Organization | | | | + + + + + | [facility] | [address] | [place], [place] | | | [facility] | [address] | [phone] | | | TESTS | | | | + + + + + CARDIOLOGY (12/21/2015 12:00 AM PDT) + + + | Narrative | Performed At | + + + | | | + + + EEG CONTINUOUS, ADULT (12/20/2015 11:04 AM PDT) + + + | Narrative | Performed At | + + + | Patient Name: Daysi Flaherty Date of : 1965 | [facility] - | | Date of Test: 12/20/2015 Place of | [facility] | | Service: [facility] [phone] - [phone] [facility] Department: EEG [facility] - | POINT OF CARE | | [phone] FINISHER MACHINE VIDEO EEG Start Date/Time: 12/20/2015 | TESTS | | 7:02 End Date/Time: 12/21/2015 Telemetry Number: [id number] | | | Please refer to the cumulative custodial EEG report from the first | | | day of this recording period for results. | | | | | + + + + + + + + | Performing | Address | City/State/Zipcode | Phone Number | | Organization | | | | + + + + + | [facility] | [address] | [place], [place] | | | [facility] POINT OF [facility] | [address] | [address] | | | TESTS | | | | + + + + + CARDIOLOGY (12/20/2015 12:00 AM PDT) + + + | Narrative | Performed At | + + + | | | + + + EEG CONTINUOUS, ADULT (12/19/2015) + + + | Narrative | Performed At | + + + | Patient Name: Daysi Flaherty Date of : 1965 | [facility] - | | Date of Test: 12/19/2015 Place of | [facility] | | Service: [facility] [phone] [facility] Department: EEG [facility] - | POINT OF CARE | | [phone] FINISHER MACHINE VIDEO EEG Start Date/Time: 12/19/15 | TESTS | | End Date/Time: 12/20/15 Telemetry Number: [id number] Please refer | | | to the cumulative long term care administrator EEG report from the first day of this | | | recording period for results. | | + + + + + + + + | Performing | Address | City/State/Zipcode | Phone Number | | Organization | | | | + + + + + | [facility] | [address] | [place], [place] | | | PAM [facility] | [address] | [phone] | | | TESTS | | | | + + + + + CARDIOLOGY (12/19/2015 12:00 AM PDT) + + + | Narrative | Performed At | + + + | | | + + + EEG CONTINUOUS, ADULT (12/18/2015) + + + | Narrative | Performed At | + + + | Patient Name: Daysi Flaherty Date of : 1965 | [facility] - | | Date of Test: 12/18/2015 Place of | [facility] | | Service: [facility] [phone] [facility] Department: EEG [facility] - | POINT OF CARE | | [phone] FINISHER MACHINE VIDEO EEG Start Date/Time: | TESTS | | 12/18/2015 End Date/Time: 12/19/2015 Telemetry Number: [id number] | | | Please refer to the cumulative custodial EEG report from the | | | first day of this recording period for results. | | | | | + + + + + + + + | Performing | Address | City/State/Zipcode | Phone Number | | Organization | | | | + + + + + | [facility] | [address] | [place], [place] | | | [facility] | [address] | [phone] | | | TESTS | | | | + + + + + CARDIOLOGY (12/18/2015 12:00 AM PDT) + + + | Narrative | Performed At | + + + | | | + + + EEG CONTINUOUS, ADULT (12/17/2015) + + + | Narrative | Performed At | + + + | Patient Name: Daysi Flaherty Date of : 1965 | [facility] - | | Date of Test: 12/17/2015 Place of | [facility] | | Service: [facility] [phone] [facility] Department: EEG [facility] - | POINT OF CARE | | [phone] FINISHER MACHINE VIDEO EEG Start Date/Time: | TESTS | | 12/17/2015 End Date/Time: 12/23/2015 Telemetry Number: | | | [id number] Last Name: Krystina First Name: | | | Daysi Record #[id number] ==== Admission | | | Information ==== Admit date: 12/17/2015 | | | Admit time: 9:00 AM | | | Discharge date: 12/23/2015 Discharge time: | | | 9:24 AM Intracranial electrodes: None | | | ==== Interictal EEG | | | Summary ==== == EEG Background == | | | Generalized: None | | | == EEG Epileptiform Activity == | | | Comment: No interictal epileptiform | | | discharges | | | ==== Clinical Interpretation ==== | | | Please see detailed discharge letter for full clinical | | | interpretation. This epilepsy monitoring unit admission was severely | | | limited by our inability to record typical seizure auras or seizures. | | | No clear interictal epileptiform discharges were recorded. | | | Every 24-hour segment of | | | video EEG monitoring recording beginning on 12/17/15 at 9 AM and | | | ending on 12/23/15 at 9:24 AM was reviewed, including each day in | | | which no discrete seizure events occurred. Anthony De La O MD. | | | | | + + + + + + + + | Performing | Address | City/State/Zipcode | Phone Number | | Organization | | | | + + + + + | [facility] | 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 Current Facility-Administered Medications: | | | acetaminophen (TYLENOL) tablet 325-650 mg, 325-650 mg, oral, Q4H PRN, | | | Amador Mayorga NP, 650 mg at 12/17/[address] (DEPAKOTE) | | | tablet 500 mg, 500 mg, oral, BID, Amador Mayorga NP [START ON | | | 12/20/2015] ergocalciferol (VITAMIN D2, DRISDOL) capsule 50,000 Units, | | | 50,000 Units, oral, Q7D, Amador Mayorga NP [START ON 12/18/2015] | | | folic acid (FOLVITE) tablet 1 mg, 1 mg, oral, DAILY, Amador Mayorga, | | | LIEN SEARCHER HYDROcodone-acetaminophen (NORCO) 10-325 mg 1 tablet, 1 tablet, | | | oral, Q6H PRN, Amador Mayorga NP [START ON 12/19/2015] methotrexate | | | tablet 10 mg, 10 mg, oral, Q7D, Jocelynsolo Mayorga NP [START ON | | | 12/18/2015] mometasone (ELOCON) 0.1 % cream 1 Film, 1 Film, topical, | | | DAILY, Amador Mayorga NP penicillin v potassium (VEETID) tablet 250 | | | mg, 250 mg, oral, BID, Amador Mayorga NP Interpretation: In | | | the maximally alert state, there is a reactive 10 Hz posterior | | | dominant rhythm of moderate amplitude, with lower amplitude faster | | | frequencies present symmetrically in the anterior head regions. | | | Intermittent eye movement artifact is noted. The patient entered into | | | the drowsy state, but no segment of stage I or stage II sleep was | | | recorded. No focal slowing or epileptiform discharges were present. | | | Hyperventilation was not performed because of comorbid medical | | | conditions. Photic stimulation produced no photoparoxysmal discharges | | | or other abnormal responses. EKG showed normal sinus rhythm | | | throughout the recording. Impression: This is a normal awake | | | and drowsy EEG. A normal EEG does not exclude a diagnosis of | | | epilepsy. Long-term video EEG monitoring is to immediately follow. | | | Electronically signed on 12/17/2015 at 4:23 PM Anthony De La O MD. | | | | | + + + + + + + + | Performing | Address | City/State/Zipcode | Phone Number | | Organization | | | | + + + + + | [facility] | 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, intractable, without status epilepticus (HCC) - Primary Localization-related | | (focal) (partial) epilepsy and epileptic syndromes with complex partial seizures, with | | intractable epilepsy | + + | Vitamin D deficiency | + + | Abscessed tooth Periapical abscess without sinus | + + | Psoriasis Other psoriasis | + + | Psoriasis with arthropathy (HCC) Psoriatic arthropathy | + + | Rheumatic fever Rheumatic fever without mention of heart involvement | + + | Nausea Nausea alone | + + | Constipation, unspecified constipation type | + + | Itching Unspecified pruritic disorder | + + | Valvular endocarditis Endocarditis, valve unspecified, unspecified cause | + + documented in this encounter Administered Medications + +--------+ +--------+------+------+ | Medication Order | MAR | Action | Dose | Rate | Site | | | Action | Date | | | | + +--------+ +--------+------+------+ | acetaminophen (TYLENOL) tablet | Given | 12/21/19 | 650 mg | | | | 325-650 mg 325-650 mg, oral, | | 16 11:49 | | | | | EVERY 4 HOURS NEEDED, Starting | | PM PDT | | | | | 12/17/15 at 1012, Until Mon | | | | | | | 12/23/15 at 1719, mild pain, | | | | | | | headache | | | | | | + +--------+ +--------+------+------+ +-------+ +--------+---+---+ | Given | 12/21/19 | 650 mg | | | | | 16 4:23 | | | | | | AM PDT | | | | +-------+ +--------+---+---+ | Given | 12/20/19 | 650 mg | | | | | 16 6:06 | | | | | | PM PDT | | | | +-------+ +--------+---+---+ +---+---+ | | | +---+---+ + +-------+ +-------+---+---+ | chlorhexidine (PERIDEX) | Given | 12/22/19 | 15 mL | | | | mouthwash 15 mL 15 mL, oral, | | 16 9:50 | | | | | TWICE DAILY, First dose on Wed | | PM PDT | | | | | 12/20/15 at 2345, Until | | | | | | | Discontinued | | | | | | + +-------+ +-------+---+---+ +-------+ +-------+---+---+ | Given | 12/22/19 | 15 mL | | | | | 16 9:43 | | | | | | AM PDT | | | | +-------+ +-------+---+---+ | Given | 12/21/19 | 15 mL | | | | | 16 10:14 | | | | | | PM PDT | | | | +-------+ +-------+---+---+ +---+---+ | | | +---+---+ + +-------+ +-------+---+---+ | chlorhexidine (PERIDEX) | Given | 12/23/19 | 15 mL | | | | mouthwash 15 mL 15 mL, oral, | | 16 10:44 | | | | | FOUR TIMES DAILY, First dose | | AM PDT | | | | | (after last modification) on Mon | | | | | | | 12/23/15 at 0015, Until | | | | | | | Discontinued | | | | | | + +-------+ +-------+---+---+ +-------+ +-------+---+---+ | Given | 12/23/19 | 15 mL | | | | | 16 10:33 | | | | | | AM PDT | | | | +-------+ +-------+---+---+ | Given | 12/23/19 | 15 mL | | | | | 16 1:37 | | | | | | AM PDT | | | | +-------+ +-------+---+---+ +---+---+ | | | +---+---+ + +-------+ +-------+---+---+ | diphenhydrAMINE (BENADRYL) | Given | 12/23/19 | 25 mg | | | | capsule 25 mg 25 mg, oral, EVERY | | 16 1:34 | | | | | 6 HOURS NEEDED, Starting Fri | | AM PDT | | | | | 12/20/15 at 2034, Until Mon | | | | | | | 12/23/15 at 1719, itching | | | | | | + +-------+ +-------+---+---+ +-------+ +-------+---+---+ | Given | 12/22/19 | 25 mg | | | | | 16 6:19 | | | | | | PM PDT | | | | +-------+ +-------+---+---+ | Given | 12/22/19 | 25 mg | | | | | 16 6:46 | | | | | | AM PDT | | | | +-------+ +-------+---+---+ +---+---+ | | | +---+---+ + +-------+ +-------+---+---+ | | Given | 12/23/19 | 10 mL | | | | [id number] | | 16 10:42 | | | | | (SPECIAL MOUTHWASH) suspension | | AM PDT | | | | | (compound) 5-10 mL 5-10 mL, | | | | | | | oral, FOUR TIMES DAILY NEEDED, | | | | | | | Starting Vero 12/19/15 at 0210, | | | | | | | Until 12/23/15 at 1719, sore | | | | | | | mouth | | | | | | + +-------+ +-------+---+---+ +-------+ +-------+---+---+ | Given | 12/22/19 | 10 mL | | | | | 16 11:53 | | | | | | PM PDT | | | | +-------+ +-------+---+---+ | Given | 12/22/19 | 10 mL | | | | | 16 7:10 | | | | | | PM PDT | | | | +-------+ +-------+---+---+ +---+---+ | | | +---+---+ + +-------+ + +---+---+ | divalproex DR (DEPAKOTE) tablet | Given | 12/22/19 | 1,000 mg | | | | 1,000 mg 1,000 mg, oral, THREE | | 16 9:50 | | | | | TIMES DAILY, 3 doses, First dose | | PM PDT | | | | | (after last modification) on Sun | | | | | | | 12/22/15 at 1000, Last dose on Sun | | | | | | | 12/22/15 at 2200 | | | | | | + +-------+ + +---+---+ +-------+ + +---+---+ | Given | 12/22/19 | 1,000 mg | | | | | 16 4:09 | | | | | | PM PDT | | | | +-------+ + +---+---+ | Given | 12/22/19 | 1,000 mg | | | | | 16 10:06 | | | | | | AM PDT | | | | +-------+ + +---+---+ +---+---+ | | | +---+---+ + +-------+ + +---+---+ | divalproex DR (DEPAKOTE) tablet | Given | 12/23/19 | 1,000 mg | | | | 1,000 mg 1,000 mg, oral, TWICE | | 16 10:42 | | | | | DAILY, First dose on 12/23/15 | | AM PDT | | | | | at 0900, Until Discontinued | | | | | | + +-------+ + +---+---+ +---+---+ | | | +---+---+ + +-------+ +--------+---+---+ | divalproex DR (DEPAKOTE) tablet | Given | 12/19/19 | 250 mg | | | | 250 mg 250 mg, oral, TWICE | | 16 9:20 | | | | | DAILY, First dose (after last | | AM PDT | | | | | modification) on 12/18/15 at | | | | | | | 2100, Until Discontinued | | | | | | + +-------+ +--------+---+---+ +-------+ +--------+---+---+ | Given | 12/18/19 | 250 mg | | | | | 16 8:55 | | | | | | PM PDT | | | | +-------+ +--------+---+---+ +---+---+ | | | +---+---+ + +-------+ +--------+---+---+ | divalproex DR (DEPAKOTE) tablet | Given | 12/20/19 | 250 mg | | | | 250 mg 250 mg, oral, DAILY, | | 16 9:22 | | | | | First dose on Wed12/20/15 at | | AM PDT | | | | | 0900, Until Discontinued | | | | | | + +-------+ +--------+---+---+ +---+---+ | | | +---+---+ + +-------+ +--------+---+---+ | divalproex DR (DEPAKOTE) tablet | Given | 12/18/19 | 500 mg | | | | 500 mg 500 mg, oral, TWICE | | 16 10:04 | | | | | DAILY, First dose (after last | | AM PDT | | | | | modification) on Wed12/17/15 at | | | | | | | 2100, Until Discontinued | | | | | | + +-------+ +--------+---+---+ +-------+ +--------+---+---+ | Given | 12/17/19 | 500 mg | | | | | 16 9:11 | | | | | | PM PDT | | | | +-------+ +--------+---+---+ +---+---+ | | | +---+---+ + +-------+ +--------+---+---+ | docusate sodium (COLACE) | Given | 12/23/19 | 100 mg | | | | capsule 100 mg 100 mg, oral, | | 16 10:33 | | | | | TWICE DAILY, First dose on Wed | | AM PDT | | | | | 12/20/15 at 0915, Until | | | | | | | Discontinued | | | | | | + +-------+ +--------+---+---+ +-------+ +--------+---+---+ | Given | 12/22/19 | 100 mg | | | | | 16 9:49 | | | | | | PM PDT | | | | +-------+ +--------+---+---+ | Given | 12/22/19 | 100 mg | | | | | 16 9:42 | | | | | | AM PDT | | | | +-------+ +--------+---+---+ +---+---+ | | | +---+---+ + +-------+ +---------+---+---+ | ergocalciferol (VITAMIN D2, | Given | 12/20/19 | 50,000 | | | | DRISDOL) capsule 50,000 Units | | 16 9:50 | Units | | | | 50,000 Units, oral, EVERY 7 DAYS, | | AM PDT | | | | | First dose on Wed12/20/15 at | | | | | | | 0900, Until Discontinued | | | | | | + +-------+ +---------+---+---+ +---+---+ | | | +---+---+ + +-------+ +------+---+---+ | folic acid (FOLVITE) tablet 1 | Given | 12/23/19 | 1 mg | | | | mg 1 mg, oral, DAILY, First dose | | 16 10:33 | | | | | on Wed12/18/15 at 0900, Until | | AM PDT | | | | | Discontinued | | | | | | + +-------+ +------+---+---+ +-------+ +------+---+---+ | Given | 12/22/19 | 1 mg | | | | | 16 9:42 | | | | | | AM PDT | | | | +-------+ +------+---+---+ | Given | 12/21/19 | 1 mg | | | | | 16 9:04 | | | | | | AM PDT | | | | +-------+ +------+---+---+ +---+---+ | | | +---+---+ + +-------+ + +---+---+ | HYDROcodone-acetaminophen | Given | 12/18/19 | 1 tablet | | | | (NORCO) 10-325 mg 1 tablet 1 | | 16 3:56 | | | | | tablet, oral, EVERY 6 HOURS | | PM PDT | | | | | NEEDED, Starting Wed12/17/15 at | | | | | | | 1011, Until Wed12/19/15 at 0210, | | | | | | | arthritis pain, tooth ache | | | | | | + +-------+ + +---+---+ +-------+ + +---+---+ | Given | 12/17/19 | 1 tablet | | | | | 16 8:20 | | | | | | PM PDT | | | | +-------+ + +---+---+ +---+---+ | | | +---+---+ + +-------+ +---------+---+---+ | HYDROcodone-acetaminophen | Given | 12/23/19 | 2 | | | | (NORCO) 10-325 mg 1-2 tablet 1-2 | | 16 10:42 | tablets | | | | tablet, oral, EVERY 6 HOURS | | AM PDT | | | | | NEEDED, Starting Vero 12/19/15 at | | | | | | | 0210, Until 12/23/15 at 1719, | | | | | | | arthritis pain, tooth ache | | | | | | + +-------+ +---------+---+---+ +-------+ +---------+---+---+ | Given | 12/23/19 | 2 | | | | | 16 1:34 | tablets | | | | | AM PDT | | | | +-------+ +---------+---+---+ | Given | 12/22/19 | 2 | | | | | 16 6:19 | tablets | | | | | PM PDT | | | | +-------+ +---------+---+---+ +---+---+ | | | +---+---+ + +-------+ +------+---+---+ | lidocaine (XYLOCAINE) 10 mg/mL | Given | 12/17/19 | 1 mL | | | | (1 %) injection 1 dose, Starting | | 16 11:14 | | | | | 12/17/15 at 1113, Until Tue | | AM PDT | | | | | 12/17/15 at 1114 | | | | | | + +-------+ +------+---+---+ +---+---+ | | | +---+---+ + +-------+ +-------+---+---+ | methotrexate tablet 10 mg 10 | Given | 12/19/19 | 10 mg | | | | mg, oral, EVERY 7 DAYS, First | | 16 9:20 | | | | | dose on Vero 12/19/15 at 0900, | | AM PDT | | | | | Until Discontinued | | | | | | + +-------+ +-------+---+---+ +---+---+ | | | +---+---+ + +-------+ +--------+---+---+ | mometasone (ELOCON) 0.1 % cream | Given | 12/22/19 | 1 Film | | | | 1 Film 1 Film, topical, DAILY, | | 16 9:43 | | | | | First dose on Wed12/18/15 at | | AM PDT | | | | | 0900, Until Discontinued | | | | | | + +-------+ +--------+---+---+ +-------+ +--------+---+---+ | Given | 12/21/19 | 1 Film | | | | | 16 9:41 | | | | | | AM PDT | | | | +-------+ +--------+---+---+ | Given | 12/20/19 | 1 Film | | | | | 16 9:50 | | | | | | AM PDT | | | | +-------+ +--------+---+---+ +---+---+ | | | +---+---+ + +-------+ +------+---+---+ | ondansetron (ZOFRAN) tablet 4 | Given | 12/20/19 | 4 mg | | | | mg 4 mg, oral, EVERY 12 HOURS | | 16 12:53 | | | | | NEEDED, Starting Wed12/18/15 at | | PM PDT | | | | | 1531, Until Wed12/23/15 at 1719, | | | | | | | nausea/vomiting | | | | | | + +-------+ +------+---+---+ +-------+ +------+---+---+ | Given | 12/19/19 | 4 mg | | | | | 16 6:22 | | | | | | AM PDT | | | | +-------+ +------+---+---+ | Given | 12/18/19 | 4 mg | | | | | 16 3:56 | | | | | | PM PDT | | | | +-------+ +------+---+---+ +---+---+ | | | +---+---+ + +-------+ +------+---+---+ | oxyCODONE (immediate release) | Given | 12/20/19 | 5 mg | | | | (ROXICODONE) tablet 5 mg 5 mg, | | 16 7:57 | | | | | oral, ONCE, 1 dose, 12/20/15 | | PM PDT | | | | | at 2014 | | | | | | + +-------+ +------+---+---+ +---+---+ | | | +---+---+ + +-------+ +--------+---+---+ | penicillin v potassium (VEETID) | Given | 12/20/19 | 250 mg | | | | tablet 250 mg 250 mg, oral, | | 16 9:50 | | | | | TWICE DAILY, First dose on Wed | | AM PDT | | | | | 12/17/15 at 2100, Until | | | | | | | Discontinued | | | | | | + +-------+ +--------+---+---+ +-------+ +--------+---+---+ | Given | 12/19/19 | 250 mg | | | | | 16 9:19 | | | | | | PM PDT | | | | +-------+ +--------+---+---+ | Given | 12/19/19 | 250 mg | | | | | 16 9:20 | | | | | | AM PDT | | | | +-------+ +--------+---+---+ +---+---+ | | | +---+---+ + +-------+ +--------+---+---+ | penicillin v potassium (VEETID) | Given | 12/23/19 | 250 mg | | | | tablet 250 mg 250 mg, oral, | | 16 10:33 | | | | | TWICE DAILY, First dose on Wed | | AM PDT | | | | | 12/20/15 at 2345, Until | | | | | | | Discontinued | | | | | | + +-------+ +--------+---+---+ +-------+ +--------+---+---+ | Given | 12/22/19 | 250 mg | | | | | 16 9:50 | | | | | | PM PDT | | | | +-------+ +--------+---+---+ | Given | 12/22/19 | 250 mg | | | | | 16 9:42 | | | | | | AM PDT | | | | +-------+ +--------+---+---+ +---+---+ | | | +---+---+ documented in this encounter
--- OUTSIDE RECORDS SUMMARY | ~2019-03-11 | XMS | Encounter Summary ---
Demographics + + + | Address | [address] | | | [place] [address] | + + + | Home Phone [...] + + + | Author | [facility] | + + + | Organization | [facility] | + + + | Address | Unknown | + + + | Phone | Unavailable | + + + Support + + + + + | Name | Relationship | Address | Phone | + + + + + | Christy Flaherty | ECON | [address] | | | | | [place] | | | | | [address] | | + + + + + Care Team Providers + +------+ + | Care Finish Production Manager Name | Role | Phone | + +------+ + | Jarvis Willard MD | PCP | | + +------+ + Reason for Referral Diagnostic Testing (Routine) + +--------+ + + + + | Status | Reason | Specialty | Diagnoses / | Referred By | Referred To | | | | | Procedures | Contact | Contact | + +--------+ + + + + | Authorized | | Radiology | Diagnoses | [facility] | Rad Ct Scan | | | | | Idiopathic | [facility] [address] | [facility] [address] | | | | | chronic | [address] | Eli[address] Fonseca | | | | | pancreatitis | Mailcode: | Jayshree Santillan | | | | | (HCC) Left | Center for | Mailcode: | | | | | upper | Health and | [address] [facility] | | | | | quadrant | Healing, | Hospital | | | | | pain | Building [address] | [place], [place] | | | | | Procedures | [place] | [address] | | | | | CT ABDOMEN | [address] | Phone: | | | | | WWO IV | Phone: | [phone] | | | | | CONTRAST NE | [phone] | Fax: | | | | | CT SCAN OF | Fax: | [phone] | | | | | ABDOMEN | [phone] | | | | | | COMBO | | | + +--------+ + + + + Diagnostic Testing (Routine) +--------+--------+ + + + + | Status | Reason | Specialty | Diagnoses / | Referred By | Referred To | | | | | Procedures | Contact | Contact | +--------+--------+ + + + + | Closed | | Radiology | Diagnoses | Shey, | Rad Ct Scan | | | | | Idiopathic | MD uDy | [facility] [address] | | | | | chronic | [address] | [address] | | | | | pancreatitis | [facility] | Mailcode: | | | | | (HCC) | Rd | [facility] | | | | | Procedures | [place], [place] | [facility] | | | | | [place] | [address] | and Healing, | | | | | MULTIPHASE | Phone: | Building [address], | | | | | PANCREAS AND | [phone] | 3rd Floor | | | | | PELVIS W IV | Fax: | [place], [place] | | | | | CONTRAST | [phone] | [address] | | | | | NE CT | | Phone: | | | | | ABD&PELV 1+ | | [phone] | | | | | SECTION/REGN | | Fax: | | | | | S | | [phone] | +--------+--------+ + + + + Encounter Details +--------+ + + + + | Date | Type | Department | Care Team | Description | +--------+ + + + + | 02/07/ | Spool Hauler | Digestive Health | Duy Kat, | Idiopathic chronic | | 2019 | | Center at [facility] [address] | [address] | pancreatitis (HCC) | | | | [address]rera | [address] | (Primary Dx); Left | | | | Mailcode: Center | [place], [place] | upper quadrant pain | | | | for Health and | [address] | | | | | [facility] 2 | [phone] | | | | | [place], [place] | | | | | | [address] | | | | | | [phone] | | | +--------+ + + + [...] of this encounter Plan of Treatment + +---------+--------+ + + | Name | Type | Priori | Associated Diagnoses | Order Schedule | | | | ty | | | + +---------+--------+ + + | CT ABDOMEN WWO IV | Imaging | Routin | Idiopathic chronic | Expected: | | CONTRAST | | e | pancreatitis (HCC) | 02/08/2019, Expires: | | | | | Left upper quadrant | 03/10/2020 | | | | | pain | | + +---------+--------+ + + documented as of this encounter Results CT MULTIPHASE PANCREAS AND PELVIS W IV CONTRAST (02/20/2019 3:35 PM PST) + + | Specimen | + + | | + + + + + | Narrative | Performed At | + + + | EXAM: Pancreas protocol CT of the abdomen with and without contrast. | [facility] | | CT of the pelvis with contrast. HISTORY: Chronic pancreatitis. | RADIOLOGY VOICE | | Eval for interval changes in light of increasing flares and pain. CT | RECOGNITION 2 | | for surgical treatment planning. COMPARISON: Compared with | | | 07/29/2017 TECHNIQUE: Unenhanced, arterial, and portal venous | | | abdominal CT with non-ionic iodinated intravenous contrast. CT of | | | the pelvis performed with intravenous contrast. Coronal and sagittal | | | reformats were reviewed. FINDINGS: LOWER THORAX: Linear | | | atelectasis at the right lung base. PANCREAS: Mild atrophy. No | | | focal pancreatic lesion seen. No peripancreatic inflammatory changes. | | | BILIARY: Cholecystectomy. No biliary ductal dilatation. LIVER: | | | Unremarkable. SPLEEN: Unremarkable. ADRENALS: Unremarkable. | | | KIDNEYS/URETERS: Unremarkable. PELVIC ORGANS: Unremarkable. GI | | | TRACT: Unremarkable. PERITONEUM: Unremarkable. LYMPH NODES: | | | Unremarkable. VESSELS: Unremarkable. BONES AND SOFT TISSUES: | | | Unremarkable. IMPRESSION: Mild pancreatic atrophy. Otherwise, | | | pancreas is unremarkable. No focal lesions or peripancreatic | | | inflammatory changes seen. I have personally reviewed the images | | | and, if necessary, edited the report. I agree with the report as now | | | presented. Final signature: Agustina Cormier MD 02/20/2019 | | | 3:49 PM Preliminary: Agustina Cormier MD Dictation | | | initiated: Agustina Cormier MD 02/20/2019 3:35 PM | | + + + + + | Procedure Note | + + | Service Account, Radiant Res In Interface - 02/20/2019 3:50 PM PST EXAM: Pancreas | | protocol CT of the abdomen with and without contrast. CT of the pelvis with contrast. | | HISTORY: Chronic pancreatitis. Eval for interval changes in light of increasing flares | | and pain. CT for surgical treatment planning. COMPARISON: Compared with 07/29/2017 | | TECHNIQUE: Unenhanced, arterial, and portal venous abdominal CT with non-ionic iodinated | | intravenous contrast. CT of the pelvis performed with intravenous contrast. Coronal | | and sagittal reformats were reviewed. FINDINGS: LOWER THORAX: Linear atelectasis at the | | right lung base. PANCREAS: Mild atrophy. No focal pancreatic lesion seen. No | | peripancreatic inflammatory changes.BILIARY: Cholecystectomy. No biliary ductal | | dilatation.LIVER: Unremarkable.SPLEEN: Unremarkable. ADRENALS: | | Unremarkable.KIDNEYS/URETERS: Unremarkable.PELVIC ORGANS: Unremarkable. GI TRACT: | | Unremarkable.PERITONEUM: Unremarkable. LYMPH NODES: Unremarkable.VESSELS: Unremarkable. | | BONES AND SOFT TISSUES: Unremarkable. IMPRESSION: Mild pancreatic atrophy. Otherwise, | | pancreas is unremarkable. No focal lesions or peripancreatic inflammatory changes seen. | | I have personally reviewed the images and, if necessary, edited the report. I agree with | | the report as now presented. Final signature: Agustina Cormier MD 02/20/2019 3:49 | | PM Preliminary: Agustina Cormier MD Dictation initiated: Agustina Cormier MD | | 02/20/2019 3:35 PM | |KIDNEYS/URETERS: Unremarkable. | |PELVIC ORGANS: Unremarkable. | | | |GI TRACT: Unremarkable. | |PERITONEUM: Unremarkable. | | | |LYMPH NODES: Unremarkable. | |VESSELS: Unremarkable. | | | |BONES AND SOFT TISSUES: Unremarkable. | | | |IMPRESSION: | | | |Mild pancreatic atrophy. Otherwise, pancreas is unremarkable. No focal lesions or peripancr eatic inflammatory changes seen. | | | |I have personally reviewed the images and, if necessary, edited the report. I agree with th e report as now presented. | | | |Final signature: Augstina Cormier MD 02/20/2019 3:49 PM | |Preliminary: Agustina Cormier MD | |Dictation initiated: Agustina Cormier MD 02/20/2019 3:35 PM | + + + +---------+ + + | Performing | Address | City/State/Zipcode | Phone Number | | Organization | | | | + +---------+ + + | [facility] | | | | | VOICE RECOGNITION 2 | | | | + +---------+ + + documented in this encounter Visit Diagnoses + + | Diagnosis | + + | Idiopathic chronic pancreatitis (HCC) - Primary | + + | Left upper quadrant pain Abdominal pain, left upper quadrant | + + documented in this encounter"
--- OUTSIDE RECORDS SUMMARY | ~2019-03-11 | XMS | Encounter Summary ---
Demographics + + + | Address | [address] | | | [place] [address] | + + + | Home Phone | | + + + | Preferred Language | Unknown | + + + | Marital Status | | + + + | Episcopalian Affiliation | 1061 | + + + | Race | Unknown | + + + | Ethnic Group | Unknown | + + + Author + + + | Author | [facility] | | | and [place] | + + + | Organization | [facility] | | | [...] [place] | | | | | [address] | | + + + + + | Christy Flaherty | ECON | [address] | | | | | [place] | | | | | [address] | | + + + + + Care Team Providers + +------+ + | Care Grain Blender Name | Role | Phone | + +------+ + | Juan Demarco MD | PCP | | + +------+ + Encounter Details +--------+ + + + + | Date | Type | Department | Care Team | Description | +--------+ + + + + | 01/10/ | Hospital | [facility] | Conversion | | | 2015 | [facility] | [facility] | Transaction, | | | | | OUTPATIENT | Provider Unknown | | | | | PROCEDURES [address] | | [address] | (Fax) | | | | | [place], [place] | | | | | | [address] | | | | | | [phone] | | | +--------+ + + + [...]
--- OUTSIDE RECORDS SUMMARY | ~2019-03-11 | XMS | Encounter Summary ---
Demographics + + + | Address | [address] | | | [place] [address] | + + + | Home Phone [...] + + + | Author | [facility] | + + + | Organization | [facility] | + + + | Address | Unknown | + + + | Phone | Unavailable | + + + Support + + + + + | Name | Relationship | Address | Phone | + + + + + | Christy Flaherty | ECON | [address] | | | | | [place] | | | | | [address] | | + + + + + Care Team Providers + +------+ + | Care Human Resources Clerk Name | Role | Phone | [...] 2018 | | Center at [facility] [address] | [address] | Received (05/12/17 | | | | [address]rera | [address] | Fecal Elastase | | | | Mailcode: Center | [place], [place] | Results- [facility]) | | | | for Health and | [address] | | | | | [facility] 2 | [phone] | | | | | [place], [place] | | | | | | [address] | | | | | | [phone] | | | +--------+ + + + [...]
--- OUTSIDE RECORDS SUMMARY | ~2019-03-11 | XMS | Encounter Summary ---
Demographics + + + | Address | [address] | | | [place] [address] | + + + | Home Phone | | + + + | Preferred Language | Unknown | + + + | Marital Status | | + + + | Orthodox Affiliation | ASG | + + + [...] [place] | | | | | [address] | | + + + + + Care Team Providers + +------+ + | Care Sole Buffer Name | Role | Phone | + [...] | chronic | [address] | [address] | | | | | pancreatitis | [facility] | [facility] | | | | | (HCC) | Rd | Rd [place], | | | | | Procedures | [place], [place] | [place] | | | | | CONSULT TO | [address] | [address] | | | | | SURGERY - | Phone: | Phone: | | | | | GENERAL | [phone] | [phone] | | | | | | Fax: | Fax: | | | | | | [phone] | [phone] | + +--------+ + + + + Encounter Details +--------+---------+ + + + | Date | Type | Department | Care Team | Description | +--------+---------+ + + + | 02/08/ | Office | Digestive Health | Duy Kat, | Idiopathic chronic | | 2019 | Visit | Center at [facility] [address] | [address] | pancreatitis (HCC) | | | | [address] | [facility] [address] | (Primary Dx) | | | | Mailcode: [place] | [place], [place] | | | | | [facility] and | [address] | | | | | [facility] 2 | [phone] | | | | | [place], [place] | | | | | | [address] | | | | | | [phone] | | | +--------+---------+ + + + [...] o work 3-4 days a month. 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 He describes his stools as watery diarrhea [...] Amitiza [Lubiprostone] Cough Meloxicam Diarrhea Bowel incontinence Zbovpgu-Cel-Ult Reductase Inhibitors Seizures Increased frequency of seizures, [...] oral tablet lamoTRIgine 25 mg oral tablet ebridh-erbsoqjd-lrlmvxr (VIOKACE) 20,880-78,300- 78,300 unit oral tablet methotrexate [...] Bradley Ward MD General Surgery PGY1 Pager #[phone] Associated attestation - Duy Kat MD - 02/12/2019 5:48 PM PST I saw the patient and reviewed and verified all information documented by the medical stud ent and resident, and made modifications to such information, when appropriate Duy Kat M.D. Formerly [facility] ([facility]) Professor and Vice-Vacuum Cleaner Mechanic of Surgery [facility] Pancreatic Disease Research [facility] [place] Cell phone: [phone] / [facility] provider's line [phone]. email: [email or web address] documented in this encounter Plan of Treatment Not on filedocumented as of this encounter Visit Diagnoses + + | Diagnosis | + + | Idiopathic chronic pancreatitis (HCC) - Primary | + + documented in this encounter
--- OUTSIDE RECORDS SUMMARY | ~2019-03-11 | XMS | Encounter Summary ---
Demographics + + + | Address | [address] | | | [place] [address] | + + + | Home Phone | | + + + | Preferred Language | Unknown | + + + | Marital Status | | + + + | Oriental Orthodox Affiliation | ASG | + + + | Race | White | + + + | Ethnic Group | Not or | + + + Author + + + | Author | [facility] | + + + | Organization | [facility] | + + + | Address | Unknown | + + + | Phone | Unavailable | + + + Support + + + + + | Name | Relationship | Address | Phone | + + + + + | Christy Flaherty | ECON | [address] | | | | | [place] | | | | | [address] | | + + + + + Care Team Providers + +------+ + | Care Medical Center Manager Name | Role | Phone | [...] | 2019 | | Center at [facility] [address] | [address] | (Outside records | | | | [address]rera | [address] | reviewd by | | | | Mailcode: [place] | [place], [place] | Jarek) | | | | for Health and | [address] | | | | | [place] [address] | [phone] | | | | | [place], [place] | | | | | | [address] | | | | | | [phone] | | | +--------+ + + + [...]
--- OUTSIDE RECORDS SUMMARY | ~2019-03-11 | XMS | Encounter Summary ---
Demographics + + + | Address | [address] | | | [place] [address] | + + + | Home Phone | | + + + | Preferred Language | Unknown | + + + | Marital Status | | + + + | Faith Affiliation | ASG | + + + | Race | White | + + + | Ethnic Group | Not or | + + + Author + + + | Author | [facility] | + + + | Organization | [facility] | + + + | Address | Unknown | + + + | Phone | Unavailable | + + + Support + + + + + | Name | Relationship | Address | Phone | + + + + + | Christy Flaherty | ECON | [address] | | | | | [place] | | | | | [address] | | + + + + + Care Team Providers + +------+ + | Care Washer Hand Name | Role | Phone | + +------+ + | Jarvis Willard MD | PCP | | + +------+ + Encounter Details +--------+ + + + + | Date | Type | Department | Care Team | Description | +--------+ + + + + | 02/06/ | Dispatcher Service Chief | [facility] | Duy Kat, | Idiopathic chronic | | 2019 | | Center at [facility] [address] | [address] | pancreatitis (HCC) | | | | [address] | [address] | (Primary Dx) | | | | Mailcode: Center | [place], [place] | | | | | for Health and | [address] | | | | | Healing, Building [address] | [phone] | | | | | [place], [place] | | | | | | [address] | | | | | | [phone] | | | +--------+ + + + [...] on filedocumented as of this encounter Results LAB OTHER (02/08/2019 10:56 AM PST) + + + + + + | Component | Value | Ref Range | Performed | Pathologist | | | | | At | Signature | + + + + + + | MISC REF | Trypsin, Serum | | [facility] | | | TEST NAME | | | REFERENCE | | | | | | LAB | | + + + + + + | MISC REF | 114.6 ng/mLComment: | | [facility] | | | TEST RESULT | Reference Interval: | | REFERENCE | | | | 180.5 - 885.3 | | LAB | | + + + + + + | REFERRAL | Test performed by [facility] | | [facility] | | | LAB NAME | [facility] | | REFERENCE | | | | [place] [address] | | LAB | | | | [phone] | | | | | | | | | | | | [email or web address].[facility] | | | | | | | | | | | | | | | | | | | | | | | | | | | | + + + + + + + + | Specimen | + + | Blood - Blood | | (substance) | + + + + + | [...] | | + + + + + HEMOGLOBIN A1C, BLOOD (02/08/2019 10:56 AM PST) + + + + + + | Component | Value | Ref Range | Performed | Pathologist | | | | | At | Signature | + + + + + + | HEMOGLOBIN | 5.2Comment: Hgb A1C | <5.7 % | [facility] | | | A1C | Interpretive | | LABORATORY | | | | Information: | | SERVICES, | | | | <5.7% - Normal | | SPECIAL IMM | | | | 5.7-6.4% - Consistent | | + COAG | | | | with pre-diabetes | | | | | | >6.4% - Consistent | | | | | | with diabetes | | | | | | | | | | + + + + + + | ESTIMATED | 103Comment: The | mg/dL | [facility] | | | AVERAGE | estimated Average | | LABORATORY | | | GLUCOSE | Glucose (eAG) number is | | SERVICES, | | | | calculated from the | | SPECIAL IMM | | | | result of the A1c test. | | + COAG | | | | The eAG shows what the | | | | | | average blood glucose | | | | | | was over the previous 2 | | | | | | to 3 months. | | | | + + + + + + + + | Specimen | + + | Blood - Blood | | (substance) | + + + + + | Narrative | Performed At | + + + | Alternate forms of testing such as fructosamine should be | [facility] | | considered for monitoring detention glycemic control in patients with: | LABORATORY | | Increased red cell turnover, certain hemoglobinopathies (e.g., HbS, | SERVICES, | | HbE, HbC and thalassemia syndromes), anemias, blood loss, chronic | SPECIAL IMM + | | liver disease and hemochromatosis (artefactually low HbA1c); iron | [facility] | | deficiency anemia (artefactually high HbA1c due to enhanced glycation | | | of hemoglobin). | | + + + + + + + + | Performing | Address | City/State/Zipcode | Phone Number | | Organization | | | | + + + + + | [facility] | [address] | [place] [address] | | | SERVICES, SPECIAL | [address] | | | | IMM + COAG | | | | + + + + + IGG IV SUBCLASS, SERUM (02/08/2019 10:56 AM PST) + + + + + + | Component | Value | Ref Range | Performed | Pathologist | | | | | At | Signature | + + + + + + | IGG IV | 19Comment: REFERENCE | 1 - 123 mg/dL | [facility] | | | SUBCLASS | INTERVAL: Immunoglobulin | | REG UNIV | | | | G Subclass 4 Access | | PTH - INTFC | | | | complete set of age- | | | | | | and/or gender-specific | | | | | | reference intervals for | | | | | | this test in the [facility] | | | | | | Laboratory Test | | | | | | Directory | | | | | | ([facility]).Performed | | | | | | by [facility],[address] | | | | | | [address], [facility],[place] | | | | | | [address] | | | | | | [phone].[employer]. | | | | | | [facility], Rehan Paris MD, | | | | | | Lab. Director | | | | + + + + + + + + | Specimen | + + | Blood - Blood | | (substance) | + + + + + + + | Performing | Address | City/State/Zipcode | Phone Number | | Organization | | | | + + + + + | [facility] | [address] | [place], [place] | | | UNIV PTH - INTFC | | [address] | | + + + + + C-REACTIVE PROTEIN (02/08/2019 10:56 AM PST) + +-------+ + + + | Component | Value | Ref Range | Performed | Pathologist | | | | | At | Signature | + +-------+ + + + | C-REACTIVE | 4.7 | <10.0 mg/L | [facility] | | | PROTEIN | | | LABORATORY | | | | | | SERVICES, | | | | | | CORE | | + +-------+ + + + + + | Specimen | + + | Blood - Blood | | (substance) | + + + + + + + | Performing | Address | City/State/Zipcode | Phone Number | | Organization | | | | + + + + + | [facility] | [address] | [place] [address] | | | SERVICES, CORE | [address] | | | + + + + + VITAMIN E, SERUM (02/08/2019 10:56 AM PST) + + + + + + | Component | Value | Ref Range | Performed | Pathologist | | | | | At | Signature | + + + + + + | VITAMIN E | 3.2Comment: Performed by | 0.0 - 6.0 mg/L | [facility] | | | (CORKY GENOVEVA) | [facility],[address] | | REG UNIV | | | SERUM | [address], [facility],[place] | | PTH - INTFC | | | | [address] | | | | | | [phone]. | | | | | | comeRhan MD, | | | | | | Lab. Director | | | | + + + + + + | VITAMIN E | 15.0Comment: Test | 5.5 - 18.0 mg/L | [facility] | | | (ALPHA | developed and | | REG UNIV | | | GENOVEVA), SERUM | characteristics | | PTH - INTFC | | | | determined by [facility] | | | | | | Laboratories. See | | | | | | Compliance Statement B: | | | | | | [employer]/ | | | | + + + + + + + + | Specimen | + + | Blood - Blood | | (substance) | + + + + + + + | Performing | Address | City/State/Zipcode | Phone Number | | Organization | | | | + + + + + | [facility] | [address] | [place], [place] | | | UNIV PTH - INTFC | | [address] | | + + + + + ZINC, SERUM (02/08/2019 10:56 AM PST) + + + + + + | Component | Value | Ref Range | Performed | Pathologist | | | | | At | Signature | + + + + + + | ZINC SERUM | 91.9Comment: | 60.0 - 120.0 | [facility] | | | | INTERPRETIVE | ug/dL | REG UNIV | | | | INFORMATION: Zinc, Serum | | PTH - INTFC | | | | or Plasma Elevated | | | | | | results may be due to | | | | | | skin or | | | | | | collection-related | | | | | | contamination, including | | | | | | the use of a | | | | | | noncertified metal-free | | | | | | collection/transport | | | | | | tube. If contamination | | | | | | concerns exist due to | | | | | | elevated levels of | | | | | | serum/plasma zinc, | | | | | | confirmation with a | | | | | | second specimen | | | | | | collected in a certified | | | | | | metal-free tube is | | | | | | recommended. Circulating | | | | | | zinc concentrations are | | | | | | dependent on albumin | | | | | | status and are depressed | | | | | | with malnutrition. | | | | | | Zinc may also be | | | | | | lowered with infection, | | | | | | inflammation, stress, | | | | | | oral contraceptives, and | | | | | | . Zinc may | | | | | | be elevated with zinc | | | | | | supplementation or | | | | | | fasting. Elevated zinc | | | | | | concentrations may | | | | | | interfere with copper | | | | | | absorption. Test | | | | | | developed and | | | | | | characteristics | | | | | | determined by [facility] | | | | | | Laboratories. See | | | | | | Compliance Statement B: | | | | | | [email or web address] | | | | | | by [facility],[address] | | | | | | [place] | | | | | | [address] | | | | | | [phone]. | | | | | | Rehan maher MD, | | | | | | Lab. Director | | | | + + + + + + + + | Specimen | + + | Blood - Blood | | (substance) | + + + + + + + | Performing | Address | City/State/Zipcode | Phone Number | | Organization | | | | + + + + + | [facility] | [address] | [place], [place] | | | UNIV PTH - INTFC | | [address] | | + + + + + FERRITIN (02/08/2019 10:56 AM PST) + + + + + + | Component | Value | Ref Range | Performed | Pathologist | | | | | At | Signature | + + + + + + | FERRITIN | 165Comment: Male and | 50 - 200 ng/mL | [facility] | | | | Female >18 years: | | LABORATORY | | | | <20 ng/mL: | | SERVICES, | | | | Consistant with iron | | CORE | | | | deficiency 21-50 | | | | | | ng/mL: Possible | | | | | | iron deficiency 51-99 | | | | | | ng/mL: Iron | | | | | | deficiency unlikely | | | | | | unless inflammation | | | | | | present or | | | | | | patient | | | | | | >65 years of age | | | | | | 100-200 ng/mL: | | | | | | Normal, not consistent | | | | | | with iron deficiency | | | | | | >200 ng/mL: If | | | | | | transferrin saturation | | | | | | >45%, consider | | | | | | hemochromatosis | | | | + + + + + + + + | Specimen | + + | Blood - Blood | | (substance) | + + + + + + + | Performing | Address | City/State/Zipcode | Phone Number | | Organization | | | | + + + + + | [facility] | [address] | [place] [address] | | | SERVICES, CORE | [address] | | | + + + + + IRON AND TIBC (02/08/2019 10:56 AM PST) + +-------+ + + + | Component | Value | Ref Range | Performed | Pathologist | | | | | At | Signature | + +-------+ + + + | IRON | 119 | 50 - 170 ug/dL | [facility] | | | | | | LABORATORY | | | | | | SERVICES, | | | | | | CORE | | + +-------+ + + + | IRON BIND | 347 | 240 - 450 ug/dL | [facility] | | | CAP | | | LABORATORY | | | | | | SERVICES, | | | | | | CORE | | + +-------+ + + + | % | 34 | 20 - 50 % | [facility] | | | SATURATION | | | LABORATORY | | | TRANSFERRIN | | | SERVICES, | | | , | | | CORE | | + +-------+ + + + + + | Specimen | + + | Blood - Blood | | (substance) | + + + + + + + | Performing | Address | City/State/Zipcode | Phone Number | | Organization | | | | + + + + + | [facility] | [address] | [place] [address] | | | SERVICES, CORE | [address] | | | + + + + + VITAMIN D, 25-HYDROXY, SERUM (02/08/2019 10:56 AM PST) + + + + + + | Component | Value | Ref Range | Performed | Pathologist | | | | | At | Signature | + + + + + + | VITAMIN D | 15.9 (L) | 30 - 80 ng/mL | [facility] | | | 25 HYDROXY | | | LABORATORY | | | | | | SERVICES, | | | | | | CORE | | + + + + + + + + | Specimen | + + | Blood - Blood | | (substance) | + + + + + | Narrative | Performed At | + + + | Reference Interval: 0-18years: Deficiency: <20 ng/mL | [facility] | | Optimum level: >or=20 ng/mL | LABORATORY | | >18years: Deficiency: <20 | SERVICES, CORE | | ng/mL Insufficiency: 20-29 ng/mL | | | Optimum Level: 30-80 ng/mL High: | | | 81-150 ng/ml Toxic: >150 ng/mL | | + + + + + + + + | Performing | Address | City/State/Zipcode | Phone Number | | Organization | | | | + + + + + | [facility] | [address] | [place] [address] | | | SERVICES, CORE | [address] | | | + + + + + VITAMIN A, SERUM (02/08/2019 10:56 AM PST) + + + + + + | Component | Value | Ref Range | Performed | Pathologist | | | | | At | Signature | + + + + + + | INTERPRETAT | NormalComment: Test | | [facility] | | | ION (VIT A) | developed and | | REG UNIV | | | | characteristics | | PTH - INTFC | | | | determined by [facility] | | | | | | Laboratories. See | | | | | | Compliance Statement B: | | | | | | [facility]/CSPerformed | | | | | | by [facility],[address] | | | | | | [address], [facility],[place] | | | | | | [address] | | | | | | [phone].[employer]. | | | | | | [employer] InternationalRehan MD, | | | | | | Lab. Director | | | | + + + + + + | RETINOL | 0.77 | 0.30 - 1.20 | [facility] | | | (VITAMIN A) | | mg/L | REG UNIV | | | | | | PTH - INTFC | | + + + + + + | RETINYL | 0.04 | 0.00 - 0.10 | [facility] | | | PALMATATE | | mg/L | REG UNIV | | | | | | PTH - INTFC | | + + + + + + + + | Specimen | + + | Blood - Blood | | (substance) | + + + + + + + | Performing | Address | City/State/Zipcode | Phone Number | | Organization | | | | + + + + + | [facility] | [address] | [place], [place] | | | UNIV PTH - INTFC | | [address] | | + + + + + VITAMIN B1, WHOLE BLOOD (02/08/2019 10:56 AM PST) + + + + + + | Component | Value | Ref Range | Performed | Pathologist | | | | | At | Signature | + + + + + + | VITAMIN B1, | 112Comment: INTERPRETIVE | 70 - 180 nmol/L | [facility] | | | WHOLE | INFORMATION: Vitamin | | REG UNIV | | | BLOOD | B1, Whole Blood This | | PTH - INTFC | | | | assay measures the | | | | | | concentration of | | | | | | thiamine diphosphate | | | | | | (TDP), the primary | | | | | | active form of vitamin | | | | | | B1. Approximately 90 | | | | | | percent of vitamin B1 | | | | | | present in whole blood | | | | | | is TDP. Thiamine and | | | | | | thiamine monophosphate, | | | | | | which comprise the | | | | | | remaining 10 percent, | | | | | | are not measured. Test | | | | | | developed and | | | | | | characteristics | | | | | | determined by [facility] | | | | | | Laboratories. See | | | | | | Compliance Statement B: | | | | | | [employer]/CSPerformed | | | | | | by [facility],[address] | | | | | | [facility],[place] | | | | | | [address] | | | | | | [phone].[employer]. | | | | | | [employer], Rehan Paris MD, | | | | | | Lab. Director | | | | + + + + + + + + | Specimen | + + | Blood - Blood | | (substance) | + + + + + + + | Performing | Address | City/State/Zipcode | Phone Number | | Organization | | | | + + + + + | [facility] | [address] | [place], [place] | | | UNIV PTH - INTFC | | [address] | | + + + + + VITAMIN B-12 (02/08/2019 10:56 AM PST) + +-------+ + + + | Component | Value | Ref Range | Performed | Pathologist | | | | | At | Signature | + +-------+ + + + | VITAMIN B12 | 310 | 193 - 986 pg/mL | [facility] | | | | | | LABORATORY | | | | | | SERVICES, | | | | | | CORE | | + +-------+ + + + + + | Specimen | + + | Blood - Blood | | (substance) | + + + + + + + | Performing | Address | City/State/Zipcode | Phone Number | | Organization | | | | + + + + + | [facility] | [address] | [place] [address] | | | SERVICES, CORE | [address] | | | + + + + + AMYLASE, PLASMA (02/08/2019 10:56 AM PST) + +-------+ + + + | Component | Value | Ref Range | Performed | Pathologist | | | | | At | Signature | + +-------+ + + + | AMYLASE,QUIANA | 25 | 25 - 115 U/L | [facility] | | | SMA | | | LABORATORY | | | | | | SERVICES, | | | | | | CORE | | + +-------+ + + + + + | Specimen | + + | Blood - Blood | | (substance) | + + + + + + + | Performing | Address | City/State/Zipcode | Phone Number | | Organization | | | | + + + + + | [facility] | [address] | [place] [address] | | | SERVICES, CORE | [address] | | | + + + + + LIPASE, PLASMA (02/08/2019 10:56 AM PST) + +--------+ + + + | Component | Value | Ref Range | Performed | Pathologist | | | | | At | Signature | + +--------+ + + + | LIPASE | 49 (L) | 152 - 353 U/L | [facility] | | | (LAB) | | | LABORATORY | | | | | | SERVICES, | | | | | | CORE | | + +--------+ + + + + + | Specimen | + + | Blood - Blood | | (substance) | + + + + + + + | Performing | Address | City/State/Zipcode | Phone Number | | Organization | | | | + + + + + | [facility] | [address] | [place] [address] | | | SERVICES, CORE | [address] | | | + + + + + PREALBUMIN (02/08/2019 10:56 AM PST) + +-------+ + + + | Component | Value | Ref Range | Performed | Pathologist | | | | | At | Signature | + +-------+ + + + | PREALBUMIN | 34.5 | 17.0 - 42.0 | [facility] | | | | | mg/dL | [facility] | | | | | | [place] | | + +-------+ + + + + + | Specimen | + + | Blood - Blood | | (substance) | + + + + + + + | Performing | Address | City/State/Zipcode | Phone Number | | Organization | | | | + + + + + | [facility] | [address] | [place] [address] | | | [place] | | | | + + + + + COMPLETE METABOLIC SET (NA,K,CL,CO2,BUN,CREAT,GLUC,CA,AST,ALT,BILI TOTAL,ALK PHOS,ALB,PROT TOTAL) (02/08/2019 10:56 AM PST) + +---------+ + + + | Component | Value | Ref Range | Performed | Pathologist | | | | | At | Signature | + +---------+ + + + | GLUCOSE, | 101 (H) | 70 - 99 mg/dL | [facility] | | | PLASMA | | | LABORATORY | | | (LAB) | | | SERVICES, | | | | | | [facility] + | | | | | | [facility]ALING | | + +---------+ + + + | BUN, PLASMA | 14 | 6 - 20 mg/dL | [facility] | | | (LAB) | | | LABORATORY | | | | | | SERVICES, | | | | | | [facility] + | | | | | | [facility]ALING | | + +---------+ + + + | CREATININE | 0.91 | 0.70 - 1.30 | [facility] | | | PLASMA | | mg/dL | LABORATORY | | | (LAB) | | | SERVICES, | | | | | | [facility] | [facility] + | | | | | | [facility]ALING | | + +---------+ + + + | EGFR | >60 | >60 mL/min | [facility] | | | - | | | LABORATORY | | | [place] | | | SERVICES, | | | | | | [facility] | [facility] + | | | | | | HEALING | | + +---------+ + + + | EGFR NON | >60 | >60 mL/min | [facility] | | | -[facility] | | | LABORATORY | | | [place] | | | SERVICES, | | | | | | [facility] | [facility] + | | | | | | HEALING | | + +---------+ + + + | SODIUM, | 141 | 136 - 145 | [facility] | | | PLASMA | | mmol/L | LABORATORY | | | (LAB) | | | SERVICES, | | | | | | [facility] | [facility] + | | | | | | HEALING | | + +---------+ + + + | POTASSIUM, | 3.9 | 3.4 - 5.0 | [facility] | | | PLASMA | | mmol/L | LABORATORY | | | (LAB) | | | SERVICES, | | | | | | [facility] | [facility] + | | | | | | HEALING | | + +---------+ + + + | CHLORIDE, | 103 | 97 - 108 mmol/L | [facility] | | | PLASMA | | | LABORATORY | | | (LAB) | | | SERVICES, | | | | | | [facility] | [facility] + | | | | | | [facility]ALING | | + +---------+ + + + | TOTAL CO2, | 30 | 21 - 32 mmol/L | [facility] | | | PLASMA | | | LABORATORY | | | (LAB) | | | SERVICES, | | | | | | [facility] | [facility] + | | | | | | HEALING | | + +---------+ + + + | CALCIUM, | 8.9 | 8.6 - 10.2 | [facility] | | | PLASMA | | mg/dL | LABORATORY | | | (LAB) | | | SERVICES, | | | | | | [facility] + | | | | | | [facility]ALING | | + +---------+ + + + | CALCIUM(ALB | 9.1 | 8.6 - 10.2 | [facility] | | | CORRECTED) | | mg/dL | LABORATORY | | | | | | SERVICES, | | | | | | [facility] | [facility] + | | | | | | [facility]ALING | | + +---------+ + + + | BILIRUBIN | 0.8 | 0.3 - 1.2 mg/dL | [facility] | | | TOTAL | | | LABORATORY | | | | | | SERVICES, | | | | | | [facility] | [facility] + | | | | | | HEALING | | + +---------+ + + + | TOTAL | 7.1 | 6.4 - 8.2 g/dL | [facility] | | | PROTEIN, | | | LABORATORY | | | PLASMA | | | SERVICES, | | | (LAB) | | | [facility] | | [facility] + | | | | | | HEALING | | + +---------+ + + + | ALBUMIN, | 3.8 | 3.5 - 4.7 g/dL | [facility] | | | PLASMA | | | LABORATORY | | | (LAB) | | | SERVICES, | | | | | | [facility] | [facility] + | | | | | | HEALING | | + +---------+ + + + | ALK PHOS | 109 | 53 - 128 U/L | [facility] | | | | | | LABORATORY | | | | | | SERVICES, | | | | | | [facility] | [facility] + | | | | | | [facility]ALING | | + +---------+ + + + | AST(SGOT) | 28 | <=41 U/L | [facility] | | | | | | LABORATORY | | | | | | SERVICES, | | | | | | [facility] | [facility] + | | | | | | HEALING | | + +---------+ + + + | ALT (SGPT) | 47 | <=60 U/L | [facility] | | | | | | LABORATORY | | | | | | SERVICES, | | | | | | [facility] | [facility] + | | | | | | HEALING | | + +---------+ + + + | ANION GAP | 8 | 4 - 11 mmol/L | [facility] | | | | | | LABORATORY | | | | | | SERVICES, | | | | | | [facility] | [facility] + | | | | | | HEALING | | + +---------+ + + + | ANION | 8 | 4 - 11 mmol/L | [facility] | | | GAP(ALB | | | LABORATORY | | | CORRECTED) | | | SERVICES, | | | | | | [facility] | [facility] + | | | | | | [facility]ALING | | + +---------+ + + + | POTASSIUM | No Hemo | | [facility] | | | CMNT | | | LABORATORY | | | | | | SERVICES, | | | | | | [facility] | [facility] + | | | | | | HEALING | | + +---------+ + + + | BILI T CMNT | No Hemo | | [facility] | | | | | | LABORATORY | | | | | | SERVICES, | | | | | | [facility] | | [facility] + | | | | | | HEALING | | + +---------+ + + + | AST CMNT | No Hemo | | [facility] | | | | | | LABORATORY | | | | | | SERVICES, | | | | | | [facility] | | [facility] + | | | | | | HEALING | | + +---------+ + + + + + | Specimen | + + | Blood - Blood | | (substance) | + + + + + | Narrative | Performed At | + + + | GFR is estimated using the MDRD equation recommended by the National | [facility] | | Kidney Disease Education Program. Estimated GFR Interpretive | LABORATORY | | Information: <60 mL/min/1.73 sq m Chronic Kidney | SERVICES, | | Disease <15 mL/min/1.73 sq m Kidney Failure | CENTER FOR | | Estimated GFR greater than 60 mL/min/1.73 sq m is of limited clinical | HEALTH + | | value. The MDRD equation is not valid in the following situations: | HEALING | | - Patients under 18 years of age - Severe malnutrition or obesity | | | - Vegetarian diet - Rapidly changing kidney function - Amputees, | | | paraplegics, or other muscle-wasting diseases | | + + + + + + + + | Performing | Address | City/State/Zipcode | Phone Number | | Organization | | | | + + + + + | [facility] | [address] | [place] [address] | | | [facility] | | | | | HEALTH + HEALING | | | | + + + + + documented in this encounter Visit Diagnoses + + | Diagnosis | + + | Idiopathic chronic pancreatitis (HCC) - Primary | + + documented in this encounter"
--- OUTSIDE RECORDS SUMMARY | ~2019-03-11 | XMS | Encounter Summary ---
Demographics + + + | Address | [address] | | | [place] [address] | + + + | Home Phone | | + + + | Preferred Language | Unknown | + + + | Marital Status | | + + + | Bahai Affiliation | ASG | + + + | Race | White | + + + | Ethnic Group | Not or | + + + Author + + + | Author | [facility] | + + + | Organization | [facility] | + + + | Address | Unknown | + + + | Phone | Unavailable | + + + Support + + + + + | Name | Relationship | Address | Phone | + + + + + | Christy Flaherty | ECON | [address] | | | | | [place] | | | | | [address] | | + + + + + Care Team Providers + +------+ + | Care Marketing Admin Name | Role | Phone | + [...] | | | | | Procedures | [facility] | Mailcode: | | | | | CT | Rd | [facility] | | | | | MULTIPHASE | [place], [place] | for Health | | | | | PANCREAS AND | [address] | and Healing, | | | | | PELVIS W IV | Phone: | Building [address], | | | | | CONTRAST | [phone] | 3rd Floor | | | | | [place] [address] | Fax: | [place], [place] | | | | | ABD&PELV 1+ | [phone] | [address] | | | | | SECTION/REGN | | Phone: | | | | | S | | [phone] | | | | | | | Fax: | | | | | | | [phone] | +--------+--------+ + + + + Reason [...] | [address] | [place] | | | | | Procedures | [facility] | Mailcode: | | | | | CT | Rd | [facility] | | | | | MULTIPHASE | [place], [place] | for Health | | | | | PANCREAS AND | [address] | and Healing, | | | | | PELVIS W IV | Phone: | Building [address], | | | | | CONTRAST | [phone] | 3rd Floor | | | | | [place] [address] | Fax: | [place], [place] | | | | | ABD&PELV 1+ | [phone] | [address] | | | | | SECTION/REGN | | Phone: | | | | | S | | [phone] | | | | | | | Fax: | | | | | | | [phone] | +--------+--------+ + + + + Encounter Details +--------+ + + + + | Date | Type | Department | Care Team | Description | +--------+ + + + + | 07/29/ | Hospital | Radiology/Imaging | Taiwo Tilley, | | | 2018 | Encounter | Lab at [facility] [address] | [address] | | | | | H[place] Cabrera Mailcode: | [address] | | | | | [facility] | [place], [place] | | | | | Health and Healing, | [address] | | | | | Building [address], 3rd | [phone] | | | | | Floor [place], [place] | | | | | | [address] | | | | | | [phone] | | | +--------+ + + + [...]
--- OUTSIDE RECORDS SUMMARY | ~2019-03-11 | XMS | Encounter Summary ---
Demographics + + + | Address | [address] | | | [place] [address] | + + + | Home Phone | | + + + | Preferred Language | Unknown | + + + | Marital Status | | + + + | Roman Catholic Affiliation | 1061 | + + + | Race | Unknown | + + + | Ethnic Group | Unknown | + + + Author + + + | Author | [facility] | | | and [place] | + + + | Organization | [facility] | | | [...] [place] | | | | | [address] | | + + + + + | Christy Flaherty | ECON | [address] | | | | | [place] | | | | | [address] | | + + + + + Care Team Providers + +------+ + | Care Air Battle Manager Name | Role | Phone | + +------+ + | Juan Demarco MD | PCP | | + +------+ + Encounter Details +--------+ + + + + | Date | Type | Department | Care Team | Description | +--------+ + + + + | 07/10/ | Hospital | [facility] | Conversion | Aortic valve | | 2016 | Encounter | CENTER CV INTRA OP | Transaction, | disorder | | | | [address] | Provider Unknown | | | | | [place], [place] | [phone] | | | | | [address] | | | | | | [phone] | Davion Santana MD | | | | | | [address] | | | | | | [place] [address] | | | | | | [phone] | | | | | | | [...] + + + | Blood Pressure | 105/52 | 07/11/2015 3:14 PM | | | | | PDT | | + + + + + | Pulse | 68 | 07/11/2015 3:14 PM | | | | | PDT | | + + + + + | Temperature | 36.4 C (97.5 F) | 07/11/2015 3:14 PM | | | | | PDT | | + + + + + | Respiratory Rate | 15 | 07/11/2015 3:14 PM | | | | | PDT | | + + + + + | Oxygen Saturation | - | - | | + + + + + | Inhaled Oxygen | - | - | | | Concentration | | | | + + + + + | Weight | 113.4 kg (250 lb) | 07/11/2015 3:14 PM | | | | | PDT | | + + + + + | Height | 177.8 cm (5' 10") | 07/11/2015 3:14 PM | | | | | PDT | | + + + + + | Body Mass Index | 35.87 | 07/11/2015 3:14 PM | | | | | PDT | | + + + + + documented in this encounter Medications at Time [...] | mometasone | | | 0 | /20 | | | (ELOCON) 0.1 % cream | | | | 13 | | + + + +---------+ + + | pravastatin | | | 0 | 06//20 | | | (PRAVACHOL) 80 MG | [...] documented as of this encounter Progress Notes Conversion Transaction, Provider Unknown - 07/11/2015 4:17 PM PDTFormatting of this note m ight be different from the original. Nurse Progress Note by Ike Luther RN at 07/11/151616 Author: Ike Luther RN Service: (none) Author Type: Registered Nurse Filed: 07/11/151616 Date of Service: 07/11/151616 Status: Signed Manager Data Warehouse: Ike Luther RN (Registered Nurse) Discharge instructions completed. All questions answered. IV discontinued with coannula in tact. Patient discharged to home with . onver kelsey Transaction, Provider Unknown - 07/11/2015 3:11 PM PDT Nurse Progress Note by Ike Luther RN at 07/11/151510 Author: Ike Luther RN Service: (none) Author Type: Registered Nurse Filed: 07/11/151511 Date of Service: 07/11/151510 Status: Signed Manager Data Warehouse: Ike Luther RN (Registered Nurse) Patient tolerated KRAIG procedure well. Still sleeping, VSS on 4 l NC. at bedside. Will continue to monitor. docume nted in this encounter Plan of Treatment Not on filedocumented as of this encounter Visit Diagnoses + + | Diagnosis | + + | Aortic valve disorder Aortic valve disorders | + + documented in this encounter
--- OUTSIDE RECORDS SUMMARY | ~2019-03-11 | XMS | Encounter Summary ---
Demographics + + + | Address | [address] | | | [place] [address] | + + + | Home Phone [...] [place] | | | | | [address] | | + + + + + Care Team Providers + +------+ + | Care Abalone Fisherman Name | Role | Phone | + +------+ + | Jarivs Willard MD | PCP | | + +------+ + Reason for Visit + + + | Reason | Comments | + + + | Erroneous Encounter | | | - Disregard | | + + + Encounter Details +--------+ + + + + | Date | Type | Department | Care Team | Description | +--------+ + + + + | 01/27/ | Telephone | Digestive Health | Taiwo Tilley, | Erroneous Encounter | | 2019 | | Center at [facility] [address] | [address] | - Disregard | | | | [address] | [facility] | | | | | Mailcode: Center | [place], [place] | | | | | for Health and | [address] | | | | | [facility], [facility] [address] | [phone] | | | | | [place], [place] | | | | | | [address] | | | | | | [phone] | | | +--------+ + + + [...]
--- OUTSIDE RECORDS SUMMARY | ~2019-03-11 | XMS | Encounter Summary ---
Demographics + + + | Address | [address] | | | [place] [address] | + + + | Home Phone | | + + + | Preferred Language | Unknown | + + + | Marital Status | | + + + | Latter-Day Affiliation | 1061 | + + + | Race | Unknown | + + + | Ethnic Group | Unknown | + + + Author + + + | Author | [facility] | | | and [place] | + + + | Organization | [facility] | | | [...] [place] | | | | | [address] | | + + + + + | Christy Flaherty | ECON | [address] | | | | | [place] | | | | | [address] | | + + + + + Care Team Providers + +------+ + | Care Skein Washer Name | Role | Phone | + +------+ + | Juan Demarco MD | PCP | | + +------+ + Encounter Details +--------+ + + + + | Date | Type | Department | Care Team | Description | +--------+ + + + + | 10/21/ | Orders Only | [facility] | Provider, | | | 2018 | | MEDICINE [address] | [address] | | | | | [facility] [address] [address] | [address] | | | | | [place] | [place] [address] | | | | | [address] | | | | | | [phone] | | | +--------+ + + + [...]
--- OUTSIDE RECORDS SUMMARY | ~2019-03-11 | XMS | Encounter Summary ---
Demographics + + + | Address | [address] | | | [place] [address] | + + + | Home Phone | | + + + | Preferred Language | Unknown | + + + | Marital Status | | + + + | Muslim Affiliation | ASG | + + + | Race | White | + + + | Ethnic Group | Not or | + + + Author + + + | Author | [facility] | + + + | Organization | [facility] | + + + | Address | Unknown | + + + | Phone | Unavailable | + + + Support + + + + + | Name | Relationship | Address | Phone | + + + + + | Christy Flaherty | ECON | [address] | | | | | [place] | | | | | [address] | | + + + + + Care Team Providers + +------+ + | Care Band Splicer Name | Role | Phone | + +------+ + | Filippo Chen DO | PCP | | + +------+ + Encounter Details +--------+ + + + + | Date | Type | Department | Care Team | Description | +--------+ + + + + | 04/26/ | Telephone | Dig[facility]ive [facility] | Taiwo Tilley, | | | 2017 | | [place] [facility] [address] | [address] | | | | | [address] | [address] | | | | | Mailcode: Center | [place], [place] | | | | | for Health and | [address] | | | | | [place] [address] | [phone] | | | | | [place], [place] | | | | | | [address] | | | | | | [phone] | | | +--------+ + + + [...]
--- OUTSIDE RECORDS SUMMARY | ~2019-03-11 | XMS | Encounter Summary ---
Demographics + + + | Address | [address] | | | [place] [address] | + + + | Home Phone | | + + + | Preferred Language | Unknown | + + + | Marital Status | | + + + | Yarsani Affiliation | 1061 | + + + | Race | Unknown | + + + | Ethnic Group | Unknown | + + + Author + + + | Author | [facility] | | | and [place] | + + + | Organization | [facility] | | | [...] [place] | | | | | [address] | | + + + + + | Christy Flaherty | ECON | [address] | | | | | [place] | | | | | [address] | | + + + + + Care Team Providers + +------+ + | Care Engineering Programmer Name | Role | Phone | + +------+ + | Juan Demarco MD | PCP | | + +------+ + Encounter Details +--------+ + + + + | Date | Type | Department | Care Team | Description | +--------+ + + + + | 04/08/ | Orders Only | [facility] | Conversion | | | 2015 | | INFECTIOUS DISEASE | Transaction, | | | | | [address] | Provider Unknown | | | | | [place], [place] | | | | | | [address] | (Fax) | | | | | [phone] | | | +--------+ + + + [...] | + +--------+ + + + | CBC WITH MANUAL | Routin | 04/08/2015 | | Results for this | | DIFFERENTIAL | e | 12:00 AM | | procedure are in the | | | | PST | | results section. | + +--------+ + + + | CBC WITH MANUAL | Routin | 04/08/2015 | | Results for this | | DIFFERENTIAL | e | 12:00 AM | | procedure are in the | | | | PST | | results section. | + +--------+ + + + | CBC WITH MANUAL | Routin | 04/08/2015 | | Results for this | | DIFFERENTIAL | e | 12:00 AM | | procedure are in the | | | | PST | | results section. | + +--------+ + + + | CORTISOL, AM | Routin | 04/08/2015 | | Results for this | | | e | 12:00 AM | | procedure are in the | | | | PST | | results section. | + +--------+ + + + | CORTISOL, AM | Routin | 04/08/2015 | | Results for this | | | e | 12:00 AM | | procedure are in the | | | | PST | | results section. | + +--------+ + + + | VITAMIN D, | Routin | 04/08/2015 | | Results for this | | DEFICIENCY SCREEN | e | 12:00 AM | | procedure are in the | | (25-HYDROXY) | | PST | | results section. | + +--------+ + + + | VITAMIN D, | Routin | 04/08/2015 | | Results for this | | DEFICIENCY SCREEN | e | 12:00 AM | | procedure are in the | | (25-HYDROXY) | | PST | | results section. | + +--------+ + + + | SEDIMENTATION RATE, | Routin | 04/08/2015 | | Results for this | | AUTOMATED | e | 12:00 AM | | procedure are in the | | | | PST | | results section. | + +--------+ + + + | SEDIMENTATION RATE, | Routin | 04/08/2015 | | Results for this | | AUTOMATED | e | 12:00 AM | | [...] | + +--------+ + + + | GLUCOSE, FASTING | Routin | 04/08/2015 | | | | | e | 12:00 AM | | | | | | PST | | | + +--------+ + + + | GLUCOSE, FASTING | Routin | 04/08/2015 | | | | | e | 12:00 AM | | | | | | PST | | | + +--------+ + + + | COMPREHENSIVE | Routin | 04/08/2015 | | Results for this | | METABOLIC PANEL | e | 12:00 AM | | procedure are in the | | | | PST | | results section. | + +--------+ + + + | COMPREHENSIVE | Routin | 04/08/2015 | | Results for this | | METABOLIC PANEL | e | 12:00 AM | | procedure are in the | | | | PST | | results section. | + +--------+ + + + | COMPREHENSIVE | Routin | 04/08/2015 | | Results for this | | METABOLIC PANEL | e | 12:00 AM | | procedure are in the | | | | PST | | results section. | + +--------+ + + + documented in this encounter Results Cortisol, AM (04/08/2015 12:00 AM PST) + + | Specimen | + + | | + + + + + | Impressions | Performed At | + + + | CORTISOL, AM 15.10 | EXTERNAL LAB | + + + + +---------+ + + | Performing | Address | City/State/Zipcode | Phone Number | | Organization | | | | + +---------+ + + | EXTERNAL LAB | | | | + +---------+ + + Cortisol, AM (04/08/2015 12:00 AM PST) + + | Specimen | + + | | + + + + + | Narrative | Performed At | + + + | CORTISOL, AM 15.10 | EXTERNAL LAB | + + + + +---------+ + + | Performing | Address | City/State/Zipcode | Phone Number | | Organization | | | | + +---------+ + + | EXTERNAL LAB | | | | + +---------+ + + Vitamin D, Deficiency Screen (25-Hydroxy) (04/08/2015 12:00 AM PST) + +--------+ + + + [...] | | | + +---------+ + + Vitamin D, Deficiency Screen (25-Hydroxy) (04/08/2015 12:00 AM PST) + +--------+ + + + [...] +---------+ + + Sedimentation rate, automated (04/08/2015 12:00 AM PST) + +-------+ + + + | Component | Value | Ref Range | Performed | Pathologist | | | | | At | Signature | + +-------+ + + + | Sed Rate | 0 | | EXTERNAL | | | | [...] +---------+ + + Sedimentation rate, automated (04/08/2015 12:00 AM PST) + +-------+ + + + | Component | Value | Ref Range | Performed | Pathologist | | | | | At | Signature | + +-------+ + + + | Sed Rate | 0 | | EXTERNAL | | | | [...] | | | + +---------+ + + CBC with Manual Differential (04/08/2015 12:00 AM PST) + + + + + + | Component | Value | Ref Range | Performed | Pathologist | | | | | At | Signature | + + + + + + | WBC | 5.8 | 10 | EXTERNAL | | | | | | LAB | | + + + + + + | RED CELL | 5.35 | 10 | EXTERNAL | | | COUNT | | | LAB | | + + + + + + | Hgb | 16.2 | g/dL | EXTERNAL | | | | | | LAB | | + + + + + + | Hematocrit, | 48.4 | % | EXTERNAL | | | POC | | | LAB | | + + + + + + | MCV | 90.4 | fL | EXTERNAL | | | | | | LAB | | + + + + + + | MCH | 30 | pg | EXTERNAL | | | | | | LAB | | + + + + + + | MCHC | 33 | g/dL | EXTERNAL | | | | | | LAB | | + + + + + + | RDW-CV | 12.4 | % | EXTERNAL | | | | | | LAB | | + + + + + + | Platelet | 168 | K/ L | EXTERNAL | | | Count | | | LAB | | | Plasma | | | | | + + + + + + | MPV | | fL | EXTERNAL | | | | | | LAB | | + + + + + + | % Segmented | 41.2 | % | EXTERNAL | | | | | | LAB | | | Neutrophils | | | | | + + + + + + | % | 44.5 (A) | 24 - 44 % | EXTERNAL | | | Lymphocytes | | | LAB | | + + + + + + | % Monocytes | 10.0 | % | EXTERNAL | | | | | | LAB | | + + + + + + | % | 3.7 | % | EXTERNAL | | | Eosinophils | | | LAB | | + + + + + + | % Basophils | 0.6 | % | EXTERNAL | | | | | | LAB | | + + + + + + | Absolute | | / L | EXTERNAL | | | Neutrophils | | | LAB | | + [...] | | | + +---------+ + + CBC with Manual Differential (04/08/2015 12:00 AM PST) + + + + + + | Component | Value | Ref Range | Performed | Pathologist | | | | | At | Signature | + + + + + + | WBC | 5.8 | 10 | EXTERNAL | | | | | | LAB | | + + + + + + | RED CELL | 5.35 | 10 | EXTERNAL | | | COUNT | | | LAB | | + + + + + + | Hgb | 16.2 | g/dL | EXTERNAL | | | | | | LAB | | + + + + + + | Hematocrit, | 48.4 | % | EXTERNAL | | | POC | | | LAB | | + + + + + + | MCV | 90.4 | fL | EXTERNAL | | | | | | LAB | | + + + + + + | MCH | 30 | pg | EXTERNAL | | | | | | LAB | | + + + + + + | MCHC | 33 | g/dL | EXTERNAL | | | | | | LAB | | + + + + + + | RDW-CV | 12.4 | % | EXTERNAL | | | | | | LAB | | + + + + + + | Platelet | 168 | K/ L | EXTERNAL | | | Count | | | LAB | | | Plasma | | | | | + + + + + + | MPV | | fL | EXTERNAL | | | | | | LAB | | + + + + + + | % Segmented | 41.2 | % | EXTERNAL | | | | | | LAB | | | Neutrophils | | | | | + + + + + + | % | 44.5 (A) | 24 - 44 % | EXTERNAL | | | Lymphocytes | | | LAB | | + + + + + + | % Monocytes | 10.0 | % | EXTERNAL | | | | | | LAB | | + + + + + + | % | 3.7 | % | EXTERNAL | | | Eosinophils | | | LAB | | + + + + + + | % Basophils | 0.6 | % | EXTERNAL | | | | | | LAB | | + + + + + + | Absolute | | / L | EXTERNAL | | | Neutrophils | | | LAB | | + [...] | | | + +---------+ + + CBC with Manual Differential (04/08/2015 12:00 AM PST) + + + + + + | Component | Value | Ref Range | Performed | Pathologist | | | | | At | Signature | + + + + + + | WBC | 5.8 | 10 | EXTERNAL | | | | | | LAB | | + + + + + + | RED CELL | 5.35 | 10 | EXTERNAL | | | COUNT | | | LAB | | + + + + + + | Hgb | 16.2 | g/dL | EXTERNAL | | | | | | LAB | | + + + + + + | Hematocrit, | 48.4 | % | EXTERNAL | | | POC | | | LAB | | + + + + + + | MCV | 90.4 | fL | EXTERNAL | | | | | | LAB | | + + + + + + | MCH | 30 | pg | EXTERNAL | | | | | | LAB | | + + + + + + | MCHC | 33 | g/dL | EXTERNAL | | | | | | LAB | | + + + + + + | RDW-CV | 12.4 | % | EXTERNAL | | | | | | LAB | | + + + + + + | Platelet | 168 | K/ L | EXTERNAL | | | Count | | | LAB | | | Plasma | | | | | + + + + + + | MPV | | fL | EXTERNAL | | | | | | LAB | | + + + + + + | % Segmented | 41.2 | % | EXTERNAL | | | | | | LAB | | | Neutrophils | | | | | + + + + + + | % | 44.5 (A) | 24 - 44 % | EXTERNAL | | | Lymphocytes | | | LAB | | + + + + + + | % Monocytes | 10.0 | % | EXTERNAL | | | | | | LAB | | + + + + + + | % | 3.7 | % | EXTERNAL | | | Eosinophils | | | LAB | | + + + + + + | % Basophils | 0.6 | % | EXTERNAL | | | | | | LAB | | + + + + + + | Absolute | | / L | EXTERNAL | | | Neutrophils | | | LAB | | + [...] + +---------+ + + C-Reactive Protein (04/08/2015 12:00 AM PST) + + + + + [...] + +---------+ + + C-Reactive Protein (04/08/2015 12:00 AM PST) + + + + + [...] + +---------+ + + C-Reactive Protein (04/08/2015 12:00 AM PST) + + + + + [...] | | | + +---------+ + + Glucose, Fasting (04/08/2015 12:00 AM PST) + + | Specimen | + + | Blood specimen | | (specimen) | + + + +---------+ + + | Performing | Address | City/State/Zipcode | Phone Number | | Organization | | | | + +---------+ + + | EXTERNAL LAB | | | | + +---------+ + + Glucose, Fasting (04/08/2015 12:00 AM PST) + + | Specimen | + + | Blood specimen | | (specimen) | + + + +---------+ + + | Performing | Address | City/State/Zipcode | Phone Number | | Organization | | | | + +---------+ + + | EXTERNAL LAB | | | | + +---------+ + + Comprehensive Metabolic Panel (04/08/2015 12:00 AM PST) + +--------+ + + + | Component | Value | Ref Range | Performed | Pathologist | | | | | At | Signature | + +--------+ + + + | Glucose, | 90 | mg/dL | EXTERNAL | | | Fasting | | | LAB | | + +--------+ + + + | BUN | 15 | mg/dL | EXTERNAL | | | | | | LAB | | + +--------+ + + + | Creatinine | 0.96 | mg/dL | EXTERNAL | | | | | | LAB | | + +--------+ + + + | BUN/Creatin | 15.6 | | EXTERNAL | | | ine Ratio | | | LAB | | + +--------+ + + + | Calcium | 8.9 | mg/dL | EXTERNAL | | | | | | LAB | | + +--------+ + + + | Protein, | | g/dL | EXTERNAL | | | Total | | | LAB | | + +--------+ + + + | Albumin | 3.9 | | EXTERNAL | | | | | | LAB | | + +--------+ + + + | Globulin | 2.3 | | EXTERNAL | | | | | | LAB | | + +--------+ + + + | A/G Ratio | 1.7 | | EXTERNAL | | | | | | LAB | | + +--------+ + + + | Bilirubin | 0.5 | mg/dL | EXTERNAL | | | Total | | | LAB | | + +--------+ + + + | ALP, | 62 | | EXTERNAL | | | External | | | LAB | | + +--------+ + + + | ALT | 13 | U/L | EXTERNAL | | | | | | LAB | | + +--------+ + + + | AST | 11 (A) | 13 - 39 U/L | EXTERNAL | | | | | | LAB | | + +--------+ + + + | Na | 140 | mmol/L | EXTERNAL | | | | | | LAB | | + +--------+ + + + | K | 4.2 | mmol/L | EXTERNAL | | | | | | LAB | | + +--------+ + + + | Cl | 101 | mmol/L | EXTERNAL | | | | | | LAB | | + +--------+ + + + | CO2 | 27 | mmol/L | EXTERNAL | | | | | | LAB | | + +--------+ + + + | Anion Gap | 16.2 | mmol/L | EXTERNAL | | | | | | LAB | | + +--------+ + + + | Estimated | | mg/dL | EXTERNAL | | | GFR [...] +---------+ + + Comprehensive Metabolic Panel (04/08/2015 12:00 AM PST) + +--------+ + + + | Component | Value | Ref Range | Performed | Pathologist | | | | | At | Signature | + +--------+ + + + | Glucose, | 90 | mg/dL | EXTERNAL | | | Fasting | | | LAB | | + +--------+ + + + | BUN | 15 | mg/dL | EXTERNAL | | | | | | LAB | | + +--------+ + + + | Creatinine | 0.96 | mg/dL | EXTERNAL | | | | | | LAB | | + +--------+ + + + | BUN/Creatin | 15.6 | | EXTERNAL | | | ine Ratio | | | LAB | | + +--------+ + + + | Calcium | 8.9 | mg/dL | EXTERNAL | | | | | | LAB | | + +--------+ + + + | Protein, | | g/dL | EXTERNAL | | | Total | | | LAB | | + +--------+ + + + | Albumin | 3.9 | | EXTERNAL | | | | | | LAB | | + +--------+ + + + | Globulin | 2.3 | | EXTERNAL | | | | | | LAB | | + +--------+ + + + | A/G Ratio | 1.7 | | EXTERNAL | | | | | | LAB | | + +--------+ + + + | Bilirubin | 0.5 | mg/dL | EXTERNAL | | | Total | | | LAB | | + +--------+ + + + | ALP, | 62 | | EXTERNAL | | | External | | | LAB | | + +--------+ + + + | ALT | 13 | U/L | EXTERNAL | | | | | | LAB | | + +--------+ + + + | AST | 11 (A) | 13 - 39 U/L | EXTERNAL | | | | | | LAB | | + +--------+ + + + | Na | 140 | mmol/L | EXTERNAL | | | | | | LAB | | + +--------+ + + + | K | 4.2 | mmol/L | EXTERNAL | | | | | | LAB | | + +--------+ + + + | Cl | 101 | mmol/L | EXTERNAL | | | | | | LAB | | + +--------+ + + + | CO2 | 27 | mmol/L | EXTERNAL | | | | | | LAB | | + +--------+ + + + | Anion Gap | 16.2 | mmol/L | EXTERNAL | | | | | | LAB | | + +--------+ + + + | Estimated | | mg/dL | EXTERNAL | | | GFR [...] +---------+ + + Comprehensive Metabolic Panel (04/08/2015 12:00 AM PST) + +--------+ + + + | Component | Value | Ref Range | Performed | Pathologist | | | | | At | Signature | + +--------+ + + + | Glucose, | 90 | mg/dL | EXTERNAL | | | Fasting | | | LAB | | + +--------+ + + + | BUN | 15 | mg/dL | EXTERNAL | | | | | | LAB | | + +--------+ + + + | Creatinine | 0.96 | mg/dL | EXTERNAL | | | | | | LAB | | + +--------+ + + + | BUN/Creatin | 15.6 | | EXTERNAL | | | ine Ratio | | | LAB | | + +--------+ + + + | Calcium | 8.9 | mg/dL | EXTERNAL | | | | | | LAB | | + +--------+ + + + | Protein, | | g/dL | EXTERNAL | | | Total | | | LAB | | + +--------+ + + + | Albumin | 3.9 | | EXTERNAL | | | | | | LAB | | + +--------+ + + + | Globulin | 2.3 | | EXTERNAL | | | | | | LAB | | + +--------+ + + + | A/G Ratio | 1.7 | | EXTERNAL | | | | | | LAB | | + +--------+ + + + | Bilirubin | 0.5 | mg/dL | EXTERNAL | | | Total | | | LAB | | + +--------+ + + + | ALP, | 62 | | EXTERNAL | | | External | | | LAB | | + +--------+ + + + | ALT | 13 | U/L | EXTERNAL | | | | | | LAB | | + +--------+ + + + | AST | 11 (A) | 13 - 39 U/L | EXTERNAL | | | | | | LAB | | + +--------+ + + + | Na | 140 | mmol/L | EXTERNAL | | | | | | LAB | | + +--------+ + + + | K | 4.2 | mmol/L | EXTERNAL | | | | | | LAB | | + +--------+ + + + | Cl | 101 | mmol/L | EXTERNAL | | | | | | LAB | | + +--------+ + + + | CO2 | 27 | mmol/L | EXTERNAL | | | | | | LAB | | + +--------+ + + + | Anion Gap | 16.2 | mmol/L | EXTERNAL | | | | | | LAB | | + +--------+ + + + | Estimated | | mg/dL | EXTERNAL | | | GFR [...]
--- OUTSIDE RECORDS SUMMARY | ~2019-03-11 | XMS | Encounter Summary ---
Demographics + + + | Address | [address] | | | [place] [address] | + + + | Home Phone [...] Author + + + | Author | [facility] | + + + | Organization | [facility] | + + + | Address | Unknown | + + + | Phone | Unavailable | + + + Support + + + + + | Name | Relationship | Address | Phone | + + + + + | Christy Flaherty | ECON | [address] | | | | | [place] | | | | | [address] | | + + + + + Care Team Providers + +------+ + | Care Ethanol Maintenance Mechanic Name | Role | Phone | + [...] | | 2017 | | Center at [facility] [address] | MD Ania [address] | Received (02/24/2017 | | | | [address] | [address] | ID A/P Carol | | | | Mailcode: Center | [place], [place] | [facility]) | | | | for Health and | [address] | | | | | [place] [address] | [phone] | | | | | [place], [place] | | | | | | [address] | | | | | | [phone] | | | +--------+ + + + [...]
--- OUTSIDE RECORDS SUMMARY | ~2019-03-11 | XMS | Encounter Summary ---
Demographics + + + | Address | [address] | | | [place] [address] | + + + | Home Phone | | + + + | Preferred Language | Unknown | + + + | Marital Status | | + + + | Mandaeism Affiliation | ASG | + + + | Race | White | + + + | Ethnic Group | Not or | + + + Author + + + | Author | [facility] | + + + | Organization | [facility] | + + + | Address | Unknown | + + + | Phone | Unavailable | + + + Support + + + + + | Name | Relationship | Address | Phone | + + + + + | Christy Flaherty | ECON | [address] | | | | | [place] | | | | | [address] | | + + + + + Care Team Providers + +------+ + | Care Flask Maker Name | Role | Phone | [...] + + | 04/09/ | Hospital | [address] | Taiwo Tilley, | | | 2018 - | Encounter | [facility] [place] | [address] [place] [address] | | | | | [facility] | [facility] | | | 04/10/ | | [place], [place] | [place], [place] | | | 2017 | | [address] | [address] | | | | | [phone] | [phone] | | | | | | | | | | | | Laurence Barboza MD | | | | | | [address] | | | | | | [facility] | | | | | | [place], [place] | | | | | | [address] | | | | | | [phone] | | | | | | | | | | | | Amado Roger, | | | | | | [address] | | | | | | [facility] [place] | | | | | | [place], [place] | | | | | | [address] | | | | | | [phone] | | | | | | | [...] Roger MD - 04/10/2017 7:24 AM PST [facility] Discharge Summary Discharging Provider: Amado Roger MD Discharging Attending Physician: Amado Roger MD PCP: Filippo Chen DO Admission Date: 04/09/2017 Discharge Date: 04/10/17 Hospital Stay: 1 day(s) Reason for Admission: 51 yo man with hx of obesity, seizures, VIKTORIA on BiPAP who has had 6 months of abdominal pain , weight loss (30 lbs), dysphagia/sore throat who was referred to [facility] for ERCP and [...] upon disco ntinue. Meloxicam Diarrhea Bowel incontinence Fwcacpo-Qug-Bfh Reductase Inhibitors Seizures Increased frequency of seizures, [...] focal neuro deficits Amado Roger MD, MSc Ground Wirerwebsite project manager Clinical Hospitalist and Medicine Teaching Services [facility] Pager: [phone] documented in this encounter Discharge Instructions Instructions [...] hours or on weekends and holiday Hospital Caramel Maker toll free [phone]. [phone] and have the GI doctor power generation plant operator paged. The provider who performed your procedure: [...] + +--------+ + + + | NON GRADUATE STUDENT INSTRUCTOR CYTOLOGY | Routin | 04/09/2017 | | [...] + | MRN: | [facility] | | [id number] Date: 04/09/2017Patient Name: Daysi Cook #: | ENDOSCOPY | | [id number] of : 1965CSN: [id number] Type: | | | AmbulatoryRoom: GI 3Procedure: Upper EUSIndications: | | | Abnormal ultrasound of the abdomenProviders: | | | TAIWO TILLEY MD (Doctor), LUIS A MAYES RN (Nurse), | | | JYOTI RODRIGUEZ Test Driver (Test Driver)Referring MD: | | | TAIWO TILLEY MDRequesting [...] the procedure. | | | The Olympus [id number] AL5 Linear Echoendoscope #[id number] | | | was introduced through the mouth, and advanced | | | to the second part of duodenum. The | | | Olympus [id number] Endoscope #[id number] | | | was introduced through the [...] stylet | | | was used. A park activities coordinator was present and performed a preliminary | [...] Initiated On: | | | 04/09/2017 1:07 [facility] Letter to: FILIPPO CHEN DO | | [...] | | + +---------+ + + NON GRADUATE STUDENT INSTRUCTOR CYTOLOGY (04/09/2017) + + + + + + | Component | Value | Ref Range | Performed | Pathologist | | | | | At | Signature | + + + + + + | NON-GRADUATE STUDENT INSTRUCTOR | SOURCE OF SPECIMEN:A | | [facility] [...] Soares | | | | | | ZhaoPathologistDate | | | | | | Completed: [...] | + + + + + | [facility] | [address] | [place] [address] | | | PATHOLOGY | [address] [...] Rios, | | | | | | MD, PhD/Pathologist | | | | | | [...] medicalrecord | | | | | | #[id number]. A. | | | | | | [...] M.D., | | | | | | Maame.DPathologistDate | | | | | | Completed: [...] | + + + + + | [facility] | [address] | [place] [address] | | | PATHOLOGY | [address] [...] | | | | at 1100, Until Wed04/09/17 at | iology | | | | [...]
--- OUTSIDE RECORDS SUMMARY | ~2019-03-11 | XMS | Encounter Summary ---
Demographics + + + | Address | [address] | | | [place] [address] | + + + | Home Phone | | + + + | Preferred Language | Unknown | + + + | Marital Status | | + + + | Episcopalian Affiliation | ASG | + + + | Race | White | + + + | Ethnic Group | Not or | + + + Author + + + | Author | [facility] | + + + | Organization | [facility] | + + + | Address | Unknown | + + + | Phone | Unavailable | + + + Support + + + + + | Name | Relationship | Address | Phone | + + + + + | Chritsy Flaherty | ECON | [address] | | | | | [place] | | | | | [address] | | + + + + + Care Team Providers + +------+ + | Care Dry Ice Maker Name | Role | Phone | [...] + + | 12/16/ | Hospital | [facility] [address] | Carla Chicas MD | | | 2016 - | Encounter | [address] [place] | [address] | | | | | [place] | [address] [place], | | | 12/22/ | | [facility] [address]D | [place] [address] | | | 2015 | | [place], [place] | [phone] | | | | | [address] | | | | | | [phone] | Anthony De La O MD | | | | | | [address] | | | | | | [place], [place] | | | | | | [address] | | | | | | [phone] | | | | | | | [...] attending physician. If you have access to [facility] TRAKLOK this letter will be available in the Encounters tab labeled "Other-EMU Discharge Summary" s hortly after the patient's discharge. Reason for Admission: Daysi Flaherty is a 50 y.o. male admitted for diagnostic 24-hour video EEG monitoring in the [facility] Comprehensive Epilepsy Monitoring Unit. Hospital Course: The [...] We treated the patient's tooth pain with Mccall, magic mouthwash, Tylenol. We treated constipation with [...] was unremarkable. Daysi Flaherty Home Medication Instructions ENDER:[id number] Printed on:12/23/15 1029 Medication Information acetaminophen 325 mg oral tablet [...] 25 mg 25 mg oral Q6H PRN mhcqauviuuUPAGV-jvwscmxow-KSMPTZ (SPECIAL MOUTHWASH) suspension (compound) 5-10 mL 5-1 [...] Details have been entered in a separate [facility] clinical neurophysiology procedure report. Assessment/Plan [...] to his being on valproate 3. Continue Mccall for pain. 4. Telemetry monitoring given cardiac [...] reviewing the EEG record. Marita Hernandez MD,MPH Record Center Specialist, Epilepsy Specialist [facility] Department of Neurology [facility] DEPARTMENT: Neurology Epilepsy Attending - [phone] Place of Service: Date of Service: 12/23/2015 CSN: [id number] Suggested Modifier: GC - Resident Present Suggested EEG CPT: 27503 - EEG Video, (12 - 24 hours) Suggested E/M and Procedure CPT: 40865 - Hospital Discharge, >30 minutes Suggested Diagnosis: [...] 25 mg 25 mg oral Q6H PRN xpirlijqzlJLECJ-gesobraze-GRGBNB (SPECIAL MOUTHWASH) suspension (compound) 5-10 mL 5-1 [...] to his being on valproate 3. Continue Mccall for pain. 4. Telemetry monitoring given cardiac [...] time spent reviewing the EEG re cord. [facility] DEPARTMENT: Neurology Epilepsy Attending - [phone] Place of Service: - Date of Service: 12/22/15 [facility]: [id number] Suggested Modifier: 25 - Separate E/M service performed by provider (or other trampoline team coach) on same day as procedure Suggested EEG CPT: 80826 - EEG Video, (12 - 24 hours) Suggested E/M and Procedure CPT: 95762 - Low complexity, (15 minutes >50% counseling [...] and has seen a sleep specialist in [place] who feels he has a high probabil [...] 25 mg 25 mg oral Q6H PRN uxeuaysvduFZIID-jpplmvrzh-TXJQUW (SPECIAL MOUTHWASH) suspension (compound) 5-10 mL 5-1 [...] bid esteban nued outpt dosage 3. Continue Mccall for pain. 4. Telemetry monitoring given cardiac [...] the time spent reviewing the EEG record. 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 His personal leaning is to [...] 4. Continue other home meds 5. Continue Mccall for pain. 6. Telemetry monitoring given cardiac history and h/o GTCs 7. Neuropsych testing as an outpatient 8. He was going to have LTG started in August however his pharmacy never filled the rx. His n eurologist here at [facility] had then moved so it was never [...] Electronically signed Anthony De La O MD. 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 [...] to drive and is not working at [employer] s time. His personal leaning is to [...] 4. Continue other home meds 5. Continue Mccall for pain. 6. Telemetry monitoring given cardiac history and h/o GTCs 7. Neuropsych testing as an outpatient 8. He was going to have LTG started in August however his pharmacy never filled the rx. His n eurologist here at [facility] had then moved so it was never [...] Electronically signed Anthony De La O MD. 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 Continue other home meds 5. Continue Mccall for pain. 6. Telemetry monitoring given cardiac history and h/o GTCs 7. neuropsych testing as an outpatient 8. He was going to have LTG started in August however his pharmacy never filled the rx. His n eurologist here at [facility] had then moved so it was never [...] Electronically signed Anthony De La O MD. [facility] DEPARTMENT: Neurology Epilepsy Attending - [id number] Place of Service: - Date of Service: 12/18/15 CSN: [id number] Suggested Modifier: 25 - Separate E/M service performed by provider (or other trampoline team coach) on same day as procedure Suggested EEG CPT: 27187 - EEG Video, (12 - 24 hours) Suggested E/M and Procedure CPT: 00034 - Moderate complexity, (25 minutes >50% counseling [...] Date of Test: 12/22/2015 Place of | [facility] | | Service: [facility] [phone] [facility] Department: EEG [facility] - | POINT OF CARE | | [phone] CORRECTION VIDEO EEG Start Date/Time: 12/22/15 | TESTS | | End Date/Time: 12/23/15 Telemetry Number: [id number] Please refer to | | | the cumulative laundromat worker EEG report from the first day of this | | | recording period for results. | | + + + + + + + + | Performing | Address | City/State/Zipcode | Phone Number | | Organization | | | | + + + + + | [facility] | [address] | [place], [place] | | | [facility] | [address] | [address] | | | TESTS | | | [...] + + + | X-RAY | EXAM: [place] CHEST 1 VIEW | | | | [...] | | + +---------+ + + | [facility] DEPARTMENT OF | | | | | RADIOLOGY | | | | + +---------+ + + EEG CONTINUOUS, ADULT (12/21/2015) + + + | Narrative | Performed At | + + + | Patient Name: Daysi Flaherty Date of : 1965 | [facility] - | | Date of Test: 12/21/2015 Place of | [facility] | | Service: [facility] [phone] [facility] Department: EEG [facility] - | POINT OF CARE | | [phone] STEEL SASH ERECTOR VIDEO EEG Start Date/Time: 12/21/15 | TESTS | | End Date/Time: 12/22/15 Telemetry Number: [id number] Please refer to | | | the cumulative laundromat worker EEG report from the first day of this | | | recording period for results. | | + + + + + + + + | Performing | Address | City/State/Zipcode | Phone Number | | Organization | | | | + + + + + | [facility] | [address] | [place], [place] | | | [facility] | [address] | [address] | | | TESTS | | | [...] Date of Test: 12/20/2015 Place of | [facility] | | Service: [facility] [phone] [facility] Department: EEG [facility] - | POINT OF CARE | | [phone] STEEL SASH ERECTOR VIDEO EEG Start Date/Time: 12/20/2015 | TESTS | | 7:02 End Date/Time: 12/21/2015 Telemetry Number: [id number] | | | Please refer to the cumulative penitentiary EEG report from the first | | | day of this recording period for results. | | | | | + + + + + + + + | Performing | Address | City/State/Zipcode | Phone Number | | Organization | | | | + + + + + | [facility] | [address] | [place], [place] | | | [facility] | [address] | [address] | | | TESTS | | | [...] Date of Test: 12/19/2015 Place of | [facility] | | Service: [facility] [phone] [facility] Department: EEG [facility] - | POINT OF CARE | | [phone] STEEL SASH ERECTOR VIDEO EEG Start Date/Time: 12/19/15 | TESTS | | End Date/Time: 12/20/15 Telemetry Number: [id number] Please refer | | | to the cumulative laundromat worker EEG report from the first day of this | | | recording period for results. | | + + + + + + + + | Performing | Address | City/State/Zipcode | Phone Number | | Organization | | | | + + + + + | [facility] | [address] | [place], [place] | | | [facility] | [address] | [address] | | | TESTS | | | [...] Date of Test: 12/18/2015 Place of | [facility] | | Service: [facility] [phone] [facility] Department: EEG [facility] - | POINT OF CARE | | [phone] STEEL SASH ERECTOR VIDEO EEG Start Date/Time: | TESTS | | 12/18/2015 End Date/Time: 12/19/2015 Telemetry Number: [id number] | | | Please refer to the cumulative penitentiary EEG report from the | | | first day of this recording period for results. | | | | | + + + + + + + + | Performing | Address | City/State/Zipcode | Phone Number | | Organization | | | | + + + + + | [facility] | [address] | [place], [place] | | | [facility] | [address] | [address] | | | TESTS | | | [...] Date of Test: 12/17/2015 Place of | [facility] | | Service: [facility] [phone] [facility] Department: EEG [facility] - | POINT OF CARE | | [phone] STEEL SASH ERECTOR VIDEO EEG Start Date/Time: | TESTS | | 12/17/2015 End Date/Time: 12/23/2015 Telemetry Number: | | | [id number] Last Name: Krystina First Name: | | | Daysi Record #[id number] ==== Admission | | | Information ==== [...] [facility] | [address] | [place], [place] | | | [facility] | [address] | [address] | | | TESTS | | | | + + + + + EEG ROUTINE (12/17/2015) + + + | Narrative | Performed At | + + + | Patient Name: Daysi Flaherty Date of : 1965 | [facility] - | | Date of Test: 12/17/2015 Place of | [facility], | | Service: IP [facility] [phone] [facility] Department: EEG [facility] - | POINT OF CARE | | [phone] ROUTINE EEG History: 50-year-old man with history [...] oral, DAILY, Amador Mayorga, | | | SLEEP MANAGER HYDROcodone-acetaminophen (NORCO) 10-325 mg 1 tablet, 1 [...] + + + | [facility] | [address] | [place], [place] | | | [facility] | [address] | [address] | | | TESTS | | | [...] | 10 mL | | | | nvcfkzwcrpQZXTO-vjlcaltwe-QGTANL | | 16 10:42 | | | [...]
--- OUTSIDE RECORDS SUMMARY | ~2019-03-11 | XMS | Encounter Summary ---
Demographics + + + | Address | [address] | | | [place] [address] | + + + | Home Phone | | + + + | Preferred Language | Unknown | + + + | Marital Status | | + + + | Shinto Affiliation | 1061 | + + + | Race | Unknown | + + + | Ethnic Group | Unknown | + + + Author + + + | Author | [facility] | | | and [place] | + + + | Organization | [facility] | | | and [...] [place] | | | | | [address] | | + + + + + | Christy Grande | ECON | [address] | | | | | [place] | | | | | [address] | | + + + + + Care Team Providers + +------+ + | Care Die Turner Name | Role | Phone | + +------+ + | Juan Demarco MD | PCP | | + +------+ + Encounter Details +--------+ + + + + | Date | Type | Department | Care Team | Description | +--------+ + + + + | 02/05/ | Orders Only | [facility] | Jb Mendiola, | | | 2016 | | CONVERSION [address] | [address] | | | | | [address] | [place] [address] | | | | | [place], [place] | [phone] | | | | | [address] | | | | | | [phone] | | | +--------+ + + + [...] + +--------+ + + + | ECHO INTERPRETATION | Routin | 02/06/2016 | | Results for this | | OF OUTSIDE FILMS | e | 3:29 PM | | procedure are in the | | | | PST | | results section. | + +--------+ + + + documented in this encounter Results ECHO Interpretation of Outside Films (02/06/2016 3:29 PM PST) + + | Specimen | + + | | + + + + + | Impressions | Performed At | + + + | 1. There is mild eccentric aortic regurgitation. 2. Mild aortic | | | stenosis with peak/mean pressure gradient of 15.51mmHg / 9.03mmHg, the | | | aortic valve area by continuity equation is 1.9cm?. | | + + + + + + | Narrative | Performed At | + + + | Patient Name: JOHNNY GRANDE Date of : 1965 | | | Performing Physician: Jb Mendiola MD, | | | FACC, FACP, FASNC | | | | | | INDICATIONS Aortic stenosis CONCLUSIONS | | | 1. There is mild eccentric aortic regurgitation. 2. Mild aortic | | | stenosis with peak/mean pressure gradient of 15.51mmHg / 9.03mmHg, the | | | aortic valve area by continuity equation is 1.9cm?. FINDINGS | | | -------- ECG rhythm: Sinus rhythm. Study: A 2-dimensional | | | transthoracic echocardiogram with m-mode, spectral and color flow | | | Doppler was perfomed. Study: This was a technically adequate study. | | | Left Ventricle: LV size, wall thickness and systolic function are | | | normal, with an EF of 60%. Left Ventricle: Overall left ventricular | | | systolic function is normal with, an EF between 60 - 65 %. Left | | | Ventricle: The diastolic filling pattern is normal for the age of the | | | patient. Right Ventricle: The right ventricle is normal in size. | | | Left Atrium: The left atrium is normal in size. Right Atrium: The | | | right atrium is normal in size. Aortic Valve: The aortic valve was | | | not well visualized. Aortic Valve: Aortic valve is trileaflet and is | | | mildly thickened. Aortic Valve: There is mild eccentric aortic | | | regurgitation. Aortic Valve: Mild aortic stenosis with peak/mean | | | pressure gradient of 15.51mmHg / 9.03mmHg, the aortic valve area by | | | continuity equation is 1.9cm?. Mitral Valve: The mitral valve is | | | normal. Mitral Valve: There is trace mitral regurgitation. Tricuspid | | | Valve: The tricuspid valve appears structurally normal. Tricuspid | | | Valve: Trace tricuspid regurgitation present. Tricuspid Valve: There | | | is no evidence of pulmonary hypertension. Tricuspid Valve: The right | | | ventricular systolic pressure (pulmonary artery systolic pressure), as | | | measured by Doppler, is 23.42mmHg. Pulmonic Valve: The pulmonic | | | valve was not well visualized. Pericardium: There is no pericardial | | | effusion. IVC/Hepatic Veins: The IVC is small (<1.5cm) and collapses | | | with sniff, consistent with central venous pressures of 0-5mmHg. | | | Aorta: The aortic root, ascending aorta and aortic arch are normal. | | | Mass: No mass visualized Thrombus: No clot visualized Thrombus: No | | | vegetation visualized. Septum: No ASD observed. Septum: No VSD | | | observed. MEASUREMENTS Ao asc: 2.93 cm Ao | | | Diam: 3.[address] junct: 2.83 cm IVC: 0.89 cm LA Diam: | | | 3.89 cm LA Major: 4.34 cm EDV(Teich): 103.60 ml IVSd: | | | 0.86 cm LVIDd: 4.72 cm LVPWd: 0.95 cm LVOT Area: 3.61 cm2 | | | LVOT Diam: 2.14 cm %FS: 34.35 % EF(Teich): 63.35 % | | | ESV(Teich): 37.96 ml LVIDs: 3.10 cm SV(Teich): 65.64 ml RA | | | Major: 4.13 cm RV Major: 6.63 cm RVIDd: 2.75 cm LVEF MOD | | | A2C: 58.73 % SV MOD A2C: 59.75 ml LVEF MOD A4C: 60.59 % SV | | | MOD A4C: 82.29 ml EF Biplane: 59.67 % LVEDV MOD BP: 118.21 | | | ml LVESV MOD BP: 47.67 ml LVEDV MOD A2C: 101.73 ml LVLd A2C: | | | 8.34 cm LVEDV MOD A4C: 135.80 ml LVLd A4C: 8.68 cm LVESV | | | MOD A2C: 41.98 ml LVLs A2C: 7.15 cm LVESV MOD A4C: 53.51 ml | | | LVLs A4C: 7.40 cm LAESV(A-L): 45.34 ml LAESV Index (A-L): | | | 19.71 ml/m2 LAAs A2C: 16.72 cm2 LAESV A-L A2C: 48.44 ml LALs | | | A2C: 4.90 cm LAAs A4C: 15.56 cm2 LAESV A-L A4C: 42.18 ml | | | LALs A4C: 4.87 cm RAAs: 13.91 cm2 RAESV A-L: 36.69 ml | | | RAESV MOD: 36.63 ml RALs: 4.47 cm Ao Diam: 3.87 cm LA | | | Diam: 4.22 cm LA/Ao: 1.08 AV maxP.50 mmHg AV meanPG: | | | 9.02 mmHg AV Vmax: 1.96 m/s AV Vmean: 1.40 m/s AV VTI: | | | 37.37 cm JENNI Vmax: 1.63 cm2 JENNI (VTI): 1.93 cm2 AVAI (Vmax): | | | 0.00 cm2/m2 AVAI (VTI): 0.00 cm2/m2 LVOT maxP.19 mmHg | | | LVOT meanP.89 mmHg LVSI Dopp: 31.44 ml/m2 LVSV Dopp: | | | 72.32 ml LVOT Vmax: 0.89 m/s LVOT Vmean: 0.64 m/s LVOT VTI: | | | 20.03 cm MV A George: 0.47 m/s MV DecT: 222.02 ms MV E George: | | | 0.56 m/s MV E/A Ratio: 1.19 MV PHT: 64.38 ms MVA By PHT: | | | 3.41 cm2 Septal e': 0.07 m/s Septal E/e': 7.38 Lateral e': | | | 0.10 m/s Lateral E/e': 5.45 RAP: 5 mmHg RVSP: 23.42 | | | mmHg TR maxP.42 mmHg TR Vmax: 2.14 m/s Reservations Specialist: | | | DH Authenticated by: Jb Mendiola MD, FACC, FACP, FASNC Report | | | Date/Time: -- | | + + + + + | Procedure Note | + + | Kj Rad Conversion - 11/18/2018 11:06 AM PDT Patient Name: Jen GRANDE of | | : 1965 Performing Physician: Jb Mendiola MD, [facility], | | FACP, | | FASNC INDICATIONS--------- | | --Aortic stenosis CONCLUSIONS 1. There is mild eccentric aortic | | regurgitation.2. Mild aortic stenosis with peak/mean pressure gradient of 15.51mmHg / | | 9.03mmHg, the aortic valve area by continuity equation is 1.9cm?. FINDINGS--------ECG | | rhythm: Sinus rhythm.Study: A 2-dimensional transthoracic echocardiogram with m-mode, | | spectral and color flow Doppler was perfomed.Study: This was a technically adequate | | study.Left Ventricle: LV size, wall thickness and systolic function are normal, with an | | EF of 60%.Left Ventricle: Overall left ventricular systolic function is normal with, an | | EF between 60 - 65 %.Left Ventricle: The diastolic filling pattern is normal for the age | | of the patient.Right Ventricle: The right ventricle is normal in size.Left Atrium: The | | left atrium is normal in size.Right Atrium: The right atrium is normal in size.Aortic | | Valve: The aortic valve was not well visualized.Aortic Valve: Aortic valve is trileaflet | | and is mildly thickened.Aortic Valve: There is mild eccentric aortic | | regurgitation.Aortic Valve: Mild aortic stenosis with peak/mean pressure gradient of | | 15.51mmHg / 9.03mmHg, the aortic valve area by continuity equation is 1.9cm?.Mitral | | Valve: The mitral valve is normal.Mitral Valve: There is trace mitral | | regurgitation.Tricuspid Valve: The tricuspid valve appears structurally normal.Tricuspid | | Valve: Trace tricuspid regurgitation present.Tricuspid Valve: There is no evidence of | | pulmonary hypertension.Tricuspid Valve: The right ventricular systolic pressure | | (pulmonary artery systolic pressure), as measured by Doppler, is 23.42mmHg.Pulmonic | | Valve: The pulmonic valve was not well visualized.Pericardium: There is no pericardial | | effusion.IVC/Hepatic Veins: The IVC is small (<1.5cm) and collapses with sniff, | | consistent with central venous pressures of 0-5mmHg.Aorta: The aortic root, ascending | | aorta and aortic arch are normal.Mass: No mass visualizedThrombus: No clot | | visualizedThrombus: No vegetation visualized.Septum: No ASD observed.Septum: No VSD | | observed. MEASUREMENTS Ao asc: 2.93 cmAo Diam: 3.[address] junct: | | 2.83 cmIVC: 0.89 cmLA Diam: 3.89 cmLA Major: 4.34 cmEDV(Teich): 103.60 mlIVSd: | | 0.86 cmLVIDd: 4.72 cmLVPWd: 0.95 cmLVOT Area: 3.61 qr3WKFS Diam: 2.14 cm%FS: | | 34.35 %EF(Teich): 63.35 %ESV(Teich): 37.96 mlLVIDs: 3.10 cmSV(Teich): 65.64 mlRA | | Major: 4.13 cmRV Major: 6.63 cmRVIDd: 2.75 cmLVEF MOD A2C: 58.73 %SV MOD A2C: | | 59.75 mlLVEF MOD A4C: 60.59 %SV MOD A4C: 82.29 mlEF Biplane: 59.67 %LVEDV MOD BP: | | 118.21 mlLVESV MOD BP: 47.67 mlLVEDV MOD A2C: 101.73 mlLVLd A2C: 8.34 cmLVEDV | | MOD A4C: 135.80 mlLVLd A4C: 8.68 cmLVESV MOD A2C: 41.98 mlLVLs A2C: 7.15 cmLVESV | | MOD A4C: 53.51 mlLVLs A4C: 7.40 cmLAESV(A-L): 45.34 mlLAESV Index (A-L): 19.71 | | ml/m2LAAs A2C: 16.72 [id number] A-L A2C: 48.44 mlLALs A2C: 4.90 cmLAAs A4C: 15.56 | | [id number] A-L A4C: 42.18 mlLALs A4C: 4.87 cmRAAs: 13.91 [id number] A-L: 36.69 | | mlRAESV MOD: 36.63 mlRALs: 4.47 cmAo Diam: 3.87 cmLA Diam: 4.22 cmLA/Ao: | | 1.08AV maxP.50 mmHgAV meanP.02 mmHgAV Vmax: 1.96 m/Stormy Vmean: 1.40 | | m/Stormy VTI: 37.37 cmAVA Vmax: 1.63 cm2AVA (VTI): 1.93 ep0JWZD (Vmax): 0.00 | | cm2/m2AVAI (VTI): 0.00 cm2/m2LVOT maxP.19 mmHgLVOT meanP.89 mmHgLVSI Dopp: | | 31.44 ml/m2LVSV Dopp: 72.32 mlLVOT Vmax: 0.89 m/sLVOT Vmean: 0.64 m/sLVOT VTI: | | 20.03 cmMV A George: 0.47 m/sMV DecT: 222.02 msMV E George: 0.56 m/sMV E/A Ratio: | | 1.19MV PHT: 64.38 msMVA By PHT: 3.41 fa1Pgpihb e': 0.07 m/sSeptal E/e': | | 7.38Lateral e': 0.10 m/sLateral E/e': 5.45RAP: 5 mmHgRVSP: 23.42 mmHgTR maxPG: | | 18.42 mmHgTR Vmax: 2.14 m/s Reservations Specialist: DHAuthenticated by: Jb Mendiola MD, FACC, | | FACP, FASNCReport Date/Time: -- IMPRESSION: 1. There is mild eccentric aortic | | regurgitation.2. Mild aortic stenosis with peak/mean pressure gradient of 15.51mmHg / | | 9.03mmHg, the aortic valve area by continuity equation is 1.9cm?. | |Ao Diam: 3.77 cm | |Ao st junct: 2.83 cm | |IVC: 0.89 cm | |LA Diam: 3.89 cm | |LA Major: 4.34 cm | |EDV(Teich): 103.60 ml | |IVSd: 0.86 cm | |LVIDd: 4.72 cm | |LVPWd: 0.95 cm | |LVOT Area: 3.61 cm2 | |LVOT Diam: 2.14 cm | |%FS: 34.35 % | |EF(Teich): 63.35 % | |ESV(Teich): 37.96 ml | |LVIDs: 3.10 cm | |SV(Teich): 65.64 ml | |RA Major: 4.13 cm | |RV Major: 6.63 cm | |RVIDd: 2.75 cm | |LVEF MOD A2C: 58.73 % | |SV MOD A2C: 59.75 ml | |LVEF MOD A4C: 60.59 % | |SV MOD A4C: 82.29 ml | |EF Biplane: 59.67 % | |LVEDV MOD BP: 118.21 ml | |LVESV MOD BP: 47.67 ml | |LVEDV MOD A2C: 101.73 ml | |LVLd A2C: 8.34 cm | |LVEDV MOD A4C: 135.80 ml | |LVLd A4C: 8.68 cm | |LVESV MOD A2C: 41.98 ml | |LVLs A2C: 7.15 cm | |LVESV MOD A4C: 53.51 ml | |LVLs A4C: 7.40 cm | |LAESV(A-L): 45.34 ml | |LAESV Index (A-L): 19.71 ml/m2 | |LAAs A2C: 16.72 cm2 | |LAESV A-L A2C: 48.44 ml | |LALs A2C: 4.90 cm | |LAAs A4C: 15.56 cm2 | |LAESV A-L A4C: 42.18 ml | |LALs A4C: 4.87 cm | |RAAs: 13.91 cm2 | |RAESV A-L: 36.69 ml | |RAESV MOD: 36.63 ml | |RALs: 4.47 cm | |Ao Diam: 3.87 cm | |LA Diam: 4.22 cm | |LA/Ao: 1.08 | |AV maxP.50 mmHg | |AV meanP.02 mmHg | |AV Vmax: 1.96 m/s | |AV Vmean: 1.40 m/s | |AV VTI: 37.37 cm | |JENNI Vmax: 1.63 cm2 | |JENNI (VTI): 1.93 cm2 | |AVAI (Vmax): 0.00 cm2/m2 | |AVAI (VTI): 0.00 cm2/m2 | |LVOT maxP.19 mmHg | |LVOT meanP.89 mmHg | |LVSI Dopp: 31.44 ml/m2 | |LVSV Dopp: 72.32 ml | |LVOT Vmax: 0.89 m/s | |LVOT Vmean: 0.64 m/s | |LVOT VTI: 20.03 cm | |MV A George: 0.47 m/s | |MV DecT: 222.02 ms | |MV E George: 0.56 m/s | |MV E/A Ratio: 1.19 | |MV PHT: 64.38 ms | |MVA By PHT: 3.41 cm2 | |Septal e': 0.07 m/s | |Septal E/e': 7.38 | |Lateral e': 0.10 m/s | |Lateral E/e': 5.45 | |RAP: 5 mmHg | |RVSP: 23.42 mmHg | |TR maxP.42 mmHg | |TR Vmax: 2.14 m/s | | | |Reservations Specialist: | |Authenticated by: Jb Mendiola MD, FACC, FACP, FASMATIAS | |Report Date/Time: -- | | | |IMPRESSION: | |1. There is mild eccentric aortic regurgitation. | |2. Mild aortic stenosis with peak/mean pressure gradient of 15.51mmHg / 9.03mmHg, the aorti c valve area by continuity equation is 1.9cm?. | + + documented in this encounter Visit Diagnoses Not on filedocumented in this encounter"
--- OUTSIDE RECORDS SUMMARY | ~2019-03-11 | XMS | Encounter Summary ---
Demographics + + + | Address | [address] | | | [place] [address] | + + + | Home Phone | | + + + | Preferred Language | Unknown | + + + | Marital Status | | + + + | Restorationist Affiliation | ASG | + + + | Race | White | + + + | Ethnic Group | Not or | + + + Author + + + | Author | [facility] | + + + | Organization | [facility] | + + + | Address | Unknown | + + + | Phone | Unavailable | + + + Support + + + + + | Name | Relationship | Address | Phone | + + + + + | Christy Flaherty | ECON | [address] | | | | | [place] | | | | | [address] | | + + + + + Care Team Providers + +------+ + | Care Teachers' Assistant Name | Role | Phone | + +------+ + | Jarvis Willard MD | PCP | | + +------+ + Encounter Details +--------+ + + + + | Date | Type | Department | Care Team | Description | +--------+ + + + + | 02/28/ | MyChart | [facility] | Taiwo Tilley, | RE: Increased | | 2019 | Encounter | Center at [facility] [address] | [address] | Frequency of Pain | | | | [address] | [address] | and Other Symptoms | | | | Mailcode: Center | [place], [place] | | | | | for Health and | [address] | | | | | Healing, [address] | [phone] | | | | | [place], [place] | | | | | | [address] | | | | | | [phone] | | | +--------+ + + + [...]
--- OUTSIDE RECORDS SUMMARY | ~2019-03-11 | XMS | Encounter Summary ---
Demographics + + + | Address | [address] | | | [place] [address] | + + + | Home Phone | | + + + | Preferred Language | Unknown | + + + | Marital Status | | + + + | Yarsani Affiliation | ASG | + + + | Race | White | + + + | Ethnic Group | Not or | + + + Author + + + | Author | [facility] | + + + | Organization | [facility] | + + + | Address | Unknown | + + + | Phone | Unavailable | + + + Support + + + + + | Name | Relationship | Address | Phone | + + + + + | Christy Flaherty | ECON | [address] | | | | | [place] | | | | | [address] | | + + + + + Care Team Providers + +------+ + | Care Children'S Counselor Name | Role | Phone | + +------+ + | Jarvis Willard MD | PCP | | + +------+ + Encounter Details +--------+ + + + + | Date | Type | Department | Care Team | Description | +--------+ + + + + | 02/09/ | MyChart | [facility] | Taiwo Tilley, | RE: CT Scan order | | 2019 | Encounter | Center at [facility] [address] | [address] | | | | | [address] | [address] | | | | | Mailcode: Center | [place], [place] | | | | | for Health and | [address] | | | | | Healing, [address] | [phone] | | | | | [place], [place] | | | | | | [address] | | | | | | [phone] | | | +--------+ + + + [...]
--- OUTSIDE RECORDS SUMMARY | ~2019-03-11 | XMS | Encounter Summary ---
Demographics + + + | Address | [address] | | | [place] [address] | + + + | Home Phone | | + + + | Preferred Language | Unknown | + + + | Marital Status | | + + + | Confucianist Affiliation | ASG | + + + | Race | White | + + + | Ethnic Group | Not or | + + + Author + + + | Author | [facility] | + + + | Organization | [facility] | + + + | Address | Unknown | + + + | Phone | Unavailable | + + + Support + + + + + | Name | Relationship | Address | Phone | + + + + + | Christy Flaherty | ECON | [address] | | | | | [place] | | | | | [address] | | + + + + + Care Team Providers + +------+ + | Care Veterinary Laboratory Diagnostician Name | Role | Phone | + [...] (Referral | | 2016 | on | [facility] & | [address] | to ) | | | | Healing [address] | [address]ree [address] [place], | | | | | [place] Mailcode: | [place] [address] | | | | | [facility] for | [phone] | | | | | Health and Healing, | | | | | | [facility] | | | | | | [facility], [place] | | | | | | [address] | | | | | | [phone] | | | +--------+ + + + [...]
--- OUTSIDE RECORDS SUMMARY | ~2019-03-11 | XMS | Encounter Summary ---
Demographics + + + | Address | [address] | | | [place] [address] | + + + | Home Phone | | + + + | Preferred Language | Unknown | + + + | Marital Status | | + + + | Catholic Affiliation | 1061 | + + + | Race | Unknown | + + + | Ethnic Group | Unknown | + + + Author + + + | Author | [facility] | | | and [place] | + + + | Organization | [facility] | | | [...] [place] | | | | | [address] | | + + + + + | Christy Grande | ECON | [address] | | | | | [place] | | | | | [address] | | + + + + + Care Team Providers + +------+ + | Care Fashion Design Professor Name | Role | Phone | + +------+ + | Juan Demarco MD | PCP | | + +------+ + Encounter Details +--------+ + + + + | Date | Type | Department | Care Team | Description | +--------+ + + + + | 09/02/ | Hospital | [facility] | Aure Brooks | Localized skin mass, | | 2012 | Encounter | MED CTR XRAY [address] | MD Janel [address] | lump, or swelling | | | | [place] | [address] [place] | | | | | [place] [address] | [place] [address] | | | | | [phone] | [phone] | | | | | | | [...] encounter Medications at Time of Discharge + +-----+ +---------+ + + | Medication | Sig | Dispensed | Refills | Start | End Date | | | | | | Date | | + +-----+ +---------+ + + | mometasone | | | 0 | 08/30/19 | | | (ELOCON) 0.1 % cream | | | | 13 | | + +-----+ +---------+ + + | pravastatin | | | 0 | 09/01/19 | | | (PRAVACHOL) 80 MG | | | | 13 | | | tablet | | | | | | + +-----+ +---------+ + + | valproic acid | | | 0 | 06/29/19 | | | (DEPAKENE) 250 MG | | | | 13 | | | capsule | | | | | | + +-----+ +---------+ + + documented as of this encounter Plan of Treatment + +---------+--------+ + + | Name | Type | Priori | Associated Diagnoses | Order Schedule | | | | ty | | | + +---------+--------+ + + | XR Hand Right 3 + Vw | Imaging | Routin | Localized skin | 1 Occurrences | | | | e | mass, lump, or | starting 09/02/2012 | | | | | swelling | | + +---------+--------+ + + documented as of this encounter Procedures + +--------+ + + + | Procedure Name | Priori | Date/Time | Associated Diagnosis | Comments | | | ty | | | | + +--------+ + + + | XR HAND RIGHT 3 + VW | Routin | 09/02/2012 | | Results for this | | | e | 12:20 PM | | procedure are in the | | | | PDT | | results section. | + +--------+ + + + documented in this encounter Results XR Hand Right 3 + Vw (09/02/2012 12:20 PM PDT) + + | Specimen | + + | | + + + + + | Narrative | Performed At | + + + | [facility] | [place] | | Department [address] [facility] | | [ rep in street[address]] [ rep [facility] | | [facility]] Signed | - IMAGING | | | | | Patient Name: JOHNNY GRANDE Physician: | | | BROOKE.Jesus : 1965 Age: 47 Sex: M Unit #: [id number] | | | Exam Date: 09/02/12 Location: [facility] | | | Report #: [id number] Page: | | | %(RAD)RES..mtdd.print.filter("pg") of %(RAD) | | | RES..mtdd.print.filter("tpg") | | | | | | Accession Number: [id number] | | | THREE VIEWS RIGHT HAND, 09/02/2012 CLINICAL HISTORY: PAIN | | | WITH LOCALIZED LUMP OR SWELLING. COMPARISON: None. | | | FINDINGS: The bones are well mineralized and well aligned. | | | No fracture, dislocation or osseous erosion is evident. Joint | | | spaces of the hand and wrist appear maintained. No soft tissues | | | abnormality is evident. IMPRESSION: UNREMARKABLE | | | RADIOGRAPHIC APPEARANCE OF THE RIGHT HAND. Dictated | | | Date/Time: 09/02/2012 12:20 Transcribed Date/Time: 09/02/2012 | | | 21:21 Corn Press Operator: <<Signature | | | on File>> | | | Rojas Solorio | | | MD Robson09/02/12 [id number] <Electronically signed by Rojas Chance MD> | | | Rojas Chance MD 09/02/12 1220 Corn Press Operator: | | | [employer] [id number] | | + + + + + + + + | Performing | Address | City/State/Zipcode | Phone Number | | Organization | | | | + + + + + | [address] | [address] | [place] | [phone] | | [facility] | | [address] | | | - IMAGING | | | | + + + + + documented in this encounter Visit Diagnoses + + | Diagnosis | + + | Localized skin mass, lump, or swelling Localized superficial swelling, mass, or lump | + + documented in this encounter
--- OUTSIDE RECORDS SUMMARY | ~2019-03-11 | XMS | Encounter Summary ---
Demographics + + + | Address | [address] | | | [place] [address] | + + + | Home Phone | | + + + | Preferred Language | Unknown | + + + | Marital Status | | + + + | Druze Affiliation | ASG | + + + | Race | White | + + + | Ethnic Group | Not or | + + + Author + + + | Author | [facility] | + + + | Organization | [facility] | + + + | Address | Unknown | + + + | Phone | Unavailable | + + + Support + + + + + | Name | Relationship | Address | Phone | + + + + + | Christy Flaherty | ECON | [address] | | | | | [place] | | | | | [address] | | + + + + + Care Team Providers + +------+ + | Care Training Professional Name | Role | Phone | + [...] | | 2018 | | Center at [facility] [address] | [address] | Received (05/12/17 | | | | [address] | [address] | Fecal Elastase | | | | Mailcode: Center | [place], [place] | Results- [facility]) | | | | for Health and | [address] | | | | | [facility] [address] | [phone] | | | | | [place], [place] | | | | | | [address] | | | | | | [phone] | | | +--------+ + + + [...]
--- OUTSIDE RECORDS SUMMARY | ~2019-03-11 | XMS | Encounter Summary ---
Demographics + + + | Address | [address] | | | [place] [address] | + + + | Home Phone | | + + + | Preferred Language | Unknown | + + + | Marital Status | | + + + | Pentecostal Affiliation | ASG | + + + | Race | White | + + + | Ethnic Group | Not or | + + + Author + + + | Author | [facility] | + + + | Organization | [facility] | + + + | Address | Unknown | + + + | Phone | Unavailable | + + + Support + + + + + | Name | Relationship | Address | Phone | + + + + + | Christy Flaherty | ECON | [address] | | | | | [place] | | | | | [address] | | + + + + + Care Team Providers + +------+ + | Care Video Production Assistant Name | Role | Phone | [...] Test Results | | 2017 | | [facility] [place] [facility] [address] | [address] | | | | | [address] | [address] | | | | | Mailcode: [place] | [place], [place] | | | | | for Health and | [address] | | | | | [facility] [address] | [phone] | | | | | [place], [place] | | | | | | [address] | | | | | | [phone] | | | +--------+ + + + [...]
--- OUTSIDE RECORDS SUMMARY | ~2019-03-11 | XMS | Encounter Summary ---
Demographics + + + | Address | [address] | | | [place] [address] | + + + | Home Phone | | + + + | Preferred Language | Unknown | + + + | Marital Status | | + + + | Nondenominational Affiliation | ASG | + + + | Race | White | + + + | Ethnic Group | Not or | + + + Author + + + | Author | [facility] | + + + | Organization | [facility] | + + + | Address | Unknown | + + + | Phone | Unavailable | + + + Support + + + + + | Name | Relationship | Address | Phone | + + + + + | Christy Flaherty | ECON | [address] | | | | | [place] | | | | | [address] | | + + + + + Care Team Providers + +------+ + | Care Marketing Technologist Name | Role | Phone | [...] 10/11/ | Telephone | [facility] | Sharzehi, Taiwo, | Other (Auth for | | 2018 | | Center at [facility] [address] | [address] | [place]) | | | | [address] | [address] | | | | | Mailcode: Center | [place], [place] | | | | | for Health and | [address] | | | | | [place] [address] | [phone] | | | | | | | | | | | [address] | | | | | | [phone] | | | +--------+ + + + [...]
--- OUTSIDE RECORDS SUMMARY | ~2019-03-11 | XMS | Encounter Summary ---
Demographics + + + | Address | [address] | | | [place] [address] | + + + | Home Phone | | + + + | Preferred Language | Unknown | + + + | Marital Status | | + + + | Presybeterian Affiliation | ASG | + + + | Race | White | + + + | Ethnic Group | Not or | + + + Author + + + | Author | [facility] | + + + | Organization | [facility] | + + + | Address | Unknown | + + + | Phone | Unavailable | + + + Support + + + + + | Name | Relationship | Address | Phone | + + + + + | Christy Flaherty | ECON | [address] | | | | | [place] | | | | | [address] | | + + + + + Care Team Providers + +------+ + | Care Circuit Court Magistrate Name | Role | Phone | + +------+ + | Jarvis Willard MD | PCP | | + +------+ + Encounter Details +--------+------+ + + + | Date | Type | Department | Care Team | Description | +--------+------+ + + + | 02/08/ | Lab | Laboratory at [facility] | | Idiopathic chronic | | 2019 | | [address] | | pancreatitis (HCC) | | | | [place], [place] | | | | | | [address] | | | | | | [phone] | | | +--------+------+ + + + Social History + +-------+ [...] + +--------+ + + + | CBC (HEMOGRAM) ONLY | Routin | 02/08/2019 | Idiopathic chronic | Results for this | | | e | 10:56 AM | pancreatitis (HCC) | procedure are in the | | | | PST | | results section. | + +--------+ + + + | VITAMIN B1, WHOLE | Routin | 02/08/2019 | Idiopathic chronic | Results for this | | BLOOD | e | 10:56 AM | pancreatitis (HCC) | procedure are in the | | | | PST | | results section. | + +--------+ + + + | LAB OTHER | Routin | 02/08/2019 | Idiopathic chronic | Results for this | | | e | 10:56 AM | pancreatitis (HCC) | procedure are in the | | | | PST | | results section. | + +--------+ + + + | IGG IV SUBCLASS, | Routin | 02/08/2019 | Idiopathic chronic | Results for this | | SERUM | e | 10:56 AM | pancreatitis (HCC) | procedure are in the | | | | PST | | results section. | + +--------+ + + + | PREALBUMIN, SERUM | Routin | 02/08/2019 | Idiopathic chronic | Results for this | | | e | 10:56 AM | pancreatitis (HCC) | procedure are in the | | | | PST | | results section. | + +--------+ + + + | VITAMIN D, | Routin | 02/08/2019 | Idiopathic chronic | Results for this | | 25-HYDROXY, SERUM | e | 10:56 AM | pancreatitis (HCC) | procedure are in the | | | | PST | | results section. | + +--------+ + + + | ZINC, SERUM | Routin | 02/08/2019 | Idiopathic chronic | Results for this | | | e | 10:56 AM | pancreatitis (HCC) | procedure are in the | | | | PST | | results section. | + +--------+ + + + | VITAMIN E, SERUM | Routin | 02/08/2019 | Idiopathic chronic | Results for this | | | e | 10:56 AM | pancreatitis (HCC) | procedure are in the | | | | PST | | results section. | + +--------+ + + + | VITAMIN A, SERUM | Routin | 02/08/2019 | Idiopathic chronic | Results for this | | | e | 10:56 AM | pancreatitis (HCC) | procedure are in the | | | | PST | | results section. | + +--------+ + + + | COMPLETE METABOLIC | Routin | 02/08/2019 | Idiopathic chronic | Results for this | | SET | e | 10:56 AM | pancreatitis (HCC) | procedure are in the | | (NA,K,CL,CO2,BUN,CRE | | PST | | results section. | | AT,GLUC,CA,AST,ALT,B | | | | | | SIL TOTAL,ALK | | | | | | PHOS,ALB,PROT TOTAL) | | | | | + +--------+ + + + | C-REACTIVE PROTEIN | Routin | 02/08/2019 | Idiopathic chronic | Results for this | | | e | 10:56 AM | pancreatitis (HCC) | procedure are in the | | | | PST | | results section. | + +--------+ + + + | CBC ONLY | Routin | 02/08/2019 | Idiopathic chronic | Results for this | | | e | 10:56 AM | pancreatitis (HCC) | procedure are in the | | | | PST | | results section. | + +--------+ + + + | FERRITIN | Routin | 02/08/2019 | Idiopathic chronic | Results for this | | | e | 10:56 AM | pancreatitis (HCC) | procedure are in the | | | | PST | | results section. | + +--------+ + + + | FOLATE, SERUM | Routin | 02/08/2019 | Idiopathic chronic | Results for this | | | e | 10:56 AM | pancreatitis (HCC) | procedure are in the | | | | PST | | results section. | + +--------+ + + + | VITAMIN B-12 | Routin | 02/08/2019 | Idiopathic chronic | Results for this | | | e | 10:56 AM | pancreatitis (HCC) | procedure are in the | | | | PST | | results section. | + +--------+ + + + | HEMOGLOBIN A1C, | Routin | 02/08/2019 | Idiopathic chronic | Results for this | | BLOOD | e | 10:56 AM | pancreatitis (HCC) | procedure are in the | | | | PST | | results section. | + +--------+ + + + | LIPASE, PLASMA | Routin | 02/08/2019 | Idiopathic chronic | Results for this | | | e | 10:56 AM | pancreatitis (HCC) | procedure are in the | | | | PST | | results section. | + +--------+ + + + | IRON AND TIBC, SERUM | Routin | 02/08/2019 | Idiopathic chronic | Results for this | | | e | 10:56 AM | pancreatitis (HCC) | procedure are in the | | | | PST | | results section. | + +--------+ + + + | AMYLASE, PLASMA | Routin | 02/08/2019 | Idiopathic chronic | Results for this | | | e | 10:56 AM | pancreatitis (HCC) | procedure are in the | | | | PST | | results section. | + +--------+ + + + documented in this encounter Results FOLATE, SERUM (02/08/2019 10:56 AM PST) + + + + + + | Component | Value | Ref Range | Performed | Pathologist | | | | | At | Signature | + + + + + + | FOLATE, | 16.6Comment: | >=5.9 ng/mL | [facility] | | | SERUM | INTERPRETIVE | | REG UNIV | | | | INFORMATION: Folate, | | PTH - INTFC | | | | Serum Reference | | | | | | Interval: Less than or | | | | | | equal to 3.9 ng/mL = | | | | | | Deficient 4.0 ng/mL - | | | | | | 5.8 ng/mL = | | | | | | Indeterminate Greater | | | | | | than or equal to 5.9 | | | | | | ng/mL = NormalPerformed | | | | | | by [facility],[address] | | | | | | Chanelle Dean [facility] | | | | | | [address] | | | | | | [phone].Whisper. | | | | | | Rehan [...] [facility] | [address] | [place], [place] | | | UNIV PTH - INTFC | | [address] | | + + + + + CBC (HEMOGRAM) ONLY (02/08/2019 10:56 AM PST) + +-------+ + + + | Component | Value | Ref Range | Performed | Pathologist | | | | | At | Signature | + +-------+ + + + | WHITE CELL | 5.78 | 3.50 - 10.80 | [facility] | | | COUNT | | K/cu mm | LABORATORY | | | | | | SERVICES, | | | | | | [facility] + | | | | | | [facility]AL[facility] | | + +-------+ + + + | RED CELL | 5.57 | 4.50 - 6.00 | [facility] | | | COUNT | | M/cu mm | LABORATORY | | | | | | SERVICES, | | | | | | [facility] | [facility] + | | | | | | [facility]ALING | | + +-------+ + + + | HEMOGLOBIN | 16.6 | 13.5 - 17.5 | [facility] | | | | | g/dL | LABORATORY | | | | | | SERVICES, | | | | | | [facility] | | | [facility] + | | | | | | [facility]ALING | | + +-------+ + + + | HEMATOCRIT | 49.8 | 41.0 - 53.0 % | [facility] | | | | | | LABORATORY | | | | | | SERVICES, | | | | | | [facility] | [facility] + | | | | | | [facility]ALING | | + +-------+ + + + | MCV | 89.4 | 80.0 - 100.0 fL | [facility] | | | | | | LABORATORY | | | | | | SERVICES, | | | | | | [facility] | [facility] + | | | | | | [facility]ALING | | + +-------+ + + + | MCHC | 33.3 | 32.0 - 36.0 | [facility] | | | | | g/dL | LABORATORY | | | | | | SERVICES, | | | | | | [facility] | [facility] + | | | | | | [facility]ALING | | + +-------+ + + + | RDW SD | 37.6 | 35.1 - 46.3 fL | [facility] | | | | | | LABORATORY | | | | | | SERVICES, | | | | | | [facility] | [facility] + | | | | | | [facility]ALING | | + +-------+ + + + | PLATELET | 200 | 150 - 400 K/cu | [facility] | | | COUNT | | mm | LABORATORY | | | | | | SERVICES, | | | | | | [facility] | [facility] + | | | | | | [facility]ALING | | + +-------+ + + + | MPV | 10.9 | 9.7 - 12.3 fL | [facility] | | | | | | LABORATORY | | | | | | SERVICES, | | | | | | [facility] | | [facility] + | | | | | | [facility]ALING | | + +-------+ + + + | NRBC% | 0.0 | 0.0 - 0.3 % | [facility] | | | | | | LABORATORY | | | | | | SERVICES, | | | | | | [facility] | [facility] + | | | | | | [facility]ALING | | + +-------+ + + + | NRBC# | 0.00 | 0.00 - 0.02 | [facility] | | | | | K/cu mm | LABORATORY | | | | | | SERVICES, | | | | | | [facility] | [facility] + | | | | | | [facility]ALING | | + +-------+ + + + + + | Specimen | + + | Blood - Blood | | (substance) | + + + + + + + | Performing | Address | City/State/Zipcode | Phone Number | | Organization | | | | + + + + + | [email or web address] | [address] | [place] [address] | | | SERVICES, [place] [facility] | | | | | HE[facility] + HEALING | | | | + + + + + LAB OTHER (02/08/2019 10:56 AM PST) + [...] | Test performed by [facility] | | [facility] | | | LAB NAME | Yong Roca | | REFERENCE | | | | [place] [address] | | LAB | | | | [phone] | | | | | | | | | | | | Shnergle.[facility] | | | | | | | [...] | + + + + + | [facility] | | | | + [...] | [facility] | | considered for monitoring prison glycemic control in patients with: | LABORATORY [...] + | [facility] | [address] | [place] [address] | | | SERVICES, SPECIAL | PARK [...] REFERENCE | 1 - 123 mg/dL | [facility] | | | SUBCLASS | INTERVAL: Immunoglobulin | | REG UNIV | | | | G Subclass 4 Access | | PTH - INTFC | | | | complete set of age- | | | | | | and/or gender-specific | | | | | | reference intervals for | | | | | | this test in the [facility] | | | | | | Laboratory Test | | | | | | Directory | | | | | | (Whisper.Kliqed).Performed | | | | | | by [facility],[address] | | | | | | Chanelle Dean, [facility],[place] | | | | | | [address] | | | | | | [phone].Whisper. | | | | | | [facility], Rehan Paris MD, | | [...] [facility] | [address] | [place], [place] | | | UNIV PTH - INTFC | | [address] | | + + + + + [...] [facility] | [address] | [place] [address] | | | SERVICES, CORE | PARK [...] [facility] | | | (CORKY GENOVEVA) | [facility],[address] | | REG UNIV | | | SERUM | Chanelle Dean [facility],[place] | | PTH - INTFC | | | | [address] | | | | | | [phone].[facility]Totumlab. | | | | | | Rehan [...] B: | | | | | | Whisper.Kliqed/CS | | | | + + + + + + + + | Specimen | + + | Blood - Blood | | (substance) | + + + + + + + | Performing | Address | City/State/Zipcode | Phone Number | | Organization | | | | + + + + + | [facility] | [address] | [place], [place] | | | UNIV PTH - INTFC | | [address] | | + + + + + [...] | | | | | determined by [facility] | | | | | | Laboratories. See | | | | | | Compliance Statement B: | | | | | | Goldbely/CSPerformed | | | | | | by [facility],[address] | | | | | | [facility] | | | | | | [address] | | | | | | [phone].Whisper. | | | | | | K[facility], Rehan Paris MD, | | | | [...] [facility] | [address] | [place], [place] | | | UNIV PTH - INTFC | | [address] | | + + + + + [...] | + + + + + | [facility] | [address] | [place] [address] | | | JAMISON WORKMAN | JEROME KUHN | | | + + + + [...] | + + + + + | [facility] | [address] | [place] [address] | | | SERVICES, CORE | JEROME [...] | + + + + + | [facility] | [address] [facility] | [place] [address] | | | SERVICES, CORE | JEROME [...] INTFC | | | | determined by [facility] | | | | | | Laboratories. See | | | | | | Compliance Statement B: | | | | | | Goldbely/CSPerformed | | | | | | by [facility],[address] | | | | | | [facility] | | | | | | [address] | | | | | | [phone].Whisper. | | | | | | KliqedRehan MD, | | | | | | [...] [facility] | [address] | [place], [place] | | | UNIV PTH - INTFC | | [address] | | + + + + + [...] | | | | | determined by [facility] | | | | | | Laboratories. See | | | | | | Compliance Statement B: | | | | | | Goldbely/CSPerformed | | | | | | by [facility],[address] | | | | | | [facility] | | | | | | [address] | | | | | | [phone].Whisper. | | | | | | Rehan [...] [facility] | [address] | [place], [place] | | | UNIV PTH - INTFC | | [address] | | + + + + + [...] | + + + + + | [facility] | [address] | [place] [address] | | | JACINTA, JAMISON | [address] | | | + [...] | + + + + + | [facility] | [address] | [place] [address] | | | SERVICES, CORE | PARK [...] | + + + + + | [facility] | [address] | [place] [address] | | | SERVICES, CORE | JEROME [...] + | [facility] | [address] | [place] [address] | | | [place] | | | [...] | | | LABORATORY | | | [place] | | | SERVICES, | | | [...] MDRD equation recommended by the National | [facility] | | Kidney Disease Education Program. Estimated [...] | + + + + + | [facility] | [address] | [place] [address] | | | SERVICES, [facility] | | | | | HEALTH + HEALING | | | | + + + + + documented in this encounter Visit Diagnoses + + | Diagnosis | + + | Idiopathic chronic pancreatitis (HCC) | + + documented in this encounter"
--- OUTSIDE RECORDS SUMMARY | ~2019-03-11 | XMS | Encounter Summary ---
Demographics + + + | Address | [address] | | | [place] [address] | + + + | Home Phone | | + + + | Preferred Language | Unknown | + + + | Marital Status | | + + + | Hoahaoism Affiliation | 1061 | + + + | Race | Unknown | + + + | Ethnic Group | Unknown | + + + Author + + + | Author | [facility] | | | and [place] | + + + | Organization | [facility] | | [...] [place] | | | | | [address] | | + + + + + | Christy Flaherty | ECON | [address] | | | | | [place] | | | | | [address] | | + + + + + Care Team Providers + +------+ + | Care Plumbing Inspector Name | Role | Phone | + +------+ + | uJan Demarco MD | PCP | | + +------+ + Encounter Details +--------+ + + + + | Date | Type | Department | Care Team | Description | +--------+ + + + + | 11/07/ | Hospital | [facility] | Conversion | Pain | | 2015 | Encounter | CONVERSION [address] | Transaction, | | | | [address] | Provider Unknown | | | | | [place] | | | | | | [address] | (Fax) | | | | | [phone] | | | +--------+ + + + [...] | + +--------+ + + + | MRI BRAIN W WO | Routin | 11/05/2014 | | Results for this | | CONTRAST | e | 1:33 AM | | procedure are in the | | | | PDT | | results section. | + +--------+ + + + documented in this encounter Results MRI Brain w wo Contrast (11/05/2014 1:33 AM PDT) + + | Specimen | + + | | + + + + + | Narrative | Performed At | + + + | This is a non-reportable procedure without a radiologist report and | | | is used for image storage only | | + + + + + | Procedure Note | + + | Mohit Underwood - 11/11/2018 6:16 AM PDT This is a non-reportable procedure | | without a radiologist report and isused for image storage only | + + documented in this encounter Visit Diagnoses + + | Diagnosis | + + | Pain Generalized pain | + + documented in this encounter"
--- OUTSIDE RECORDS SUMMARY | ~2019-03-11 | XMS | Clinical Summary ---
Demographics + + + | Address | [address] | | | [place] [address] | + + + | Home Phone | | + + + | Preferred Language | Unknown | + + + | Marital Status | | + + + | Amish Affiliation | 1061 | + + + | Race | Unknown | + + + | Ethnic Group | Unknown | + + + Author + + + | Author | [employer] charity: water (Historical as of | | | 11-12-18) | + + + | Organization | [facility] (Historical as of | | | 11-12-18) | + + + | Address | Unknown | + + + | Phone | Unavailable | + + + Support + + + + + | Name | Relationship | Address | Phone | + + + + + | KrystinaChristy | ECON | [address] | | | | | [place] | | | | | [address] | | + + + + + Care Team Providers + +------+ + | Care Septic Cleaner Name | Role | Phone | + [...] +--------+---------+------+------+-------+ | pantoprazole | | | | 10/ | | Activ | | (PROTONIX) 40 MG | | | | 8 | | e | | tablet | [...] | | | | | (#1) | 9 | | | + + [...] +------+-------+ + | MEDICAID | [place] | [id number] | | | [address] | | | N | | | | [place] | | | [place] | | | | [address] | | | TRACK PRODUCTION ENGINEER | | | | | + +--------+ [...] | Self [birth year] | Home: | [address] [place] [address] | | | al/Fam | | [phone] | [phone] | [place] | | | eladio | | | [phone] | [phone] | + +--------+ +--------+ + +
--- OUTSIDE RECORDS SUMMARY | ~2019-03-11 | XMS | Encounter Summary ---
Demographics + + + | Address | [address] | | | [place] [address] | + + + | Home Phone [...] [place] | | | | | [address] | | + + + + + Care Team Providers + +------+ + | Care Salesforce Developer Name | Role | Phone | + +------+ + | Jarvis Willard MD | PCP | | + +------+ + Encounter Details +--------+ + + + + | Date | Type | Department | Care Team | Description | +--------+ + + + + | 02/07/ | Procedure | Diagnostic Imaging | | | | 2019 | Pass | Services at [facility] | | | | | | [address] | | | | | | Jayshree Santillan Mailcode: | | | | | | [address] [facility] | | | | | | [place], [place] | | | | | | [address] | | | | | | [phone] | | | +--------+ + + + [...]
--- OUTSIDE RECORDS SUMMARY | ~2019-03-11 | XMS | Encounter Summary ---
Demographics + + + | Address | [address] | | | [place] [address] | + + + | Home Phone | | + + + | Preferred Language | Unknown | + + + | Marital Status | | + + + | Holiness Affiliation | 1061 | + + + | Race | Unknown | + + + | Ethnic Group | Unknown | + + + Author + + + | Author | [facility] | | | and [place] | + + + | Organization | [facility] | | | [...] [place] | | | | | [address] | | + + + + + | Christy Flaherty | ECON | [address] | | | | | [place] | | | | | [address] | | + + + + + Care Team Providers + +------+ + | Care Tie Sawyer Name | Role | Phone | + +------+ + | Juan Demarco MD | PCP | | + +------+ + Encounter Details +--------+ + + + + | Date | Type | Department | Care Team | Description | +--------+ + + + + | 09/12/ | Hospital | [facility] | [place] | Contusion of right | | 2014 | Encounter | [facility] | [address] | hand, subsequent | | | | [address] | [facility] | encounter; Place of | | | | [facility], [place] | [place] [address] | occurrence, | | | | [address] | [phone] | industrial places | | | | [phone] | | and premises | +--------+ + + + + Social [...] RIGHT 3 + VW | Routin | 09/12/2014 | Contusion of right | Results for this | | | e | 3:19 PM | hand, subsequent | procedure are in the | | | | PDT | encounter Place of | results section. | | | | | occurrence, | | | | | | industrial places | | | | | | and premises | | + +--------+ + + + documented [...] injury recently COMPARISON: September 02, 2012. | [facility] | | FINDINGS:3 views of the right [...] + | Kj, Rad Results In - 09/12/2014 4:28 PM PDT EXAM: XR HAND RIGHT 3 + VW dated | | 09/12/2014 3:15 PMHISTORY:right hand pain, no injury recentlyCOMPARISON: September 02, | | 2012.FINDINGS:3 views of the right [...] | + + + + + | [address] | [address] | [place] | [phone] | | [facility] | | [address] | | | - IMAGING | | | | + + + + + documented in this encounter Visit Diagnoses + + | Diagnosis | + + | Contusion of right hand, subsequent encounter | + + | Place of occurrence, industrial places and premises | + + documented in this encounter"
--- OUTSIDE RECORDS SUMMARY | ~2019-03-11 | XMS | Encounter Summary ---
Demographics + + + | Address | [address] | | | [place] [address] | + + + | Home Phone [...] [place] | | | | | [address] | | + + + + + | Christy Flaherty | ECON | [address] | | | | | [place] | | | | | [address] | | + + + + + Care Team Providers + +------+ + | Care Costume Director Name | Role | Phone | + +------+ + | Juan Demarco MD | PCP | | + +------+ + Encounter Details +--------+ + + + + | Date | Type | Department | Care Team | Description | +--------+ + + + + | 04/08/ | Orders Only | [facility] | [address]sec[address], | | | 2016 | | CARDIOLOGY BRITNEY | [address] | | | | | [address] | [address] [place], [place] | | | | | [place], [place] | [address] | | | | | [address] | [phone] | | | | | [phone] | | | +--------+ + + + [...] + | RED CELL | 5.35 | 4.3 - 5.7 10 | EXTERNAL | | | COUNT | | | LAB | | + + + + + + | Hgb | 16.2 | 13.5 - 18.0 | [...]
--- OUTSIDE RECORDS SUMMARY | ~2019-03-11 | XMS | Encounter Summary ---
Demographics + + + | Address | [address] | | | [place] [address] | + + + | Home Phone | | + + + | Preferred Language | Unknown | + + + | Marital Status | | + + + | Buddhist Affiliation | ASG | + + + | Race | White | + + + | Ethnic Group | Not or | + + + Author + + + | Author | [facility] | + + + | Organization | [facility] | + + + | Address | Unknown | + + + | Phone | Unavailable | + + + Support + + + + + | Name | Relationship | Address | Phone | + + + + + | Christy Flaherty | ECON | [address] | | | | | [place] | | | | | [address] | | + + + + + Care Team Providers + +------+ + | Care Mushroom Picker Name | Role | Phone | + +------+ + | Filippo Chen DO | PCP | | + +------+ + Encounter Details +--------+------+ + + + | Date | Type | Department | Care Team | Description | +--------+------+ + + + | 09/04/ | Lab | Laboratory at [facility] | | Encounter for | | 2016 | | [address] | | long-term current | | | | [place], [place] | | use of medication | | | | [address] | | | | | | [phone] | | | +--------+------+ + + + [...] | CBC (HEMOGRAM) ONLY | Routin | 09/05/2015 | Encounter for | Results for this | | | e | 4:10 PM | long-term current | procedure are in the | | | | PDT | use of medication | results section. | + +--------+ + + + | VALPROIC ACID, | Routin | 09/05/2015 | Encounter for | Results for this | | PLASMA | e | 4:10 PM | long-term current | procedure are in the | | | | PDT | use of medication | results section. | + +--------+ + + + | COMPLETE METABOLIC | Routin | 09/05/2015 | Encounter for | Results for this | | SET | e | 4:10 PM | long-term current | procedure are in the | | (NA,K,CL,CO2,BUN,CRE | | PDT | use of medication | results section. | | AT,GLUC,CA,AST,ALT,B | | | | | | SIL TOTAL,ALK | | | | | | PHOS,ALB,PROT TOTAL) | | | | | + +--------+ + + + | CBC ONLY | Routin | 09/05/2015 | Encounter for | Results for this | | | e | 4:10 PM | long-term current | procedure are in the | | | | PDT | use of medication | results section. | + +--------+ + + + documented in this encounter Results CBC (HEMOGRAM) ONLY (09/05/2015 4:10 PM PDT) + +-------+ + + + | Component | Value | Ref Range | Performed | Pathologist | | | | | At | Signature | + +-------+ + + + | WHITE CELL | 6.12 | 4.40 - 11.00 | [facility] | | | COUNT | | K/cu mm | LABORATORY | | | | | | SERVICES, | | | | | | [facility] | | | | | | [facility] | | + +-------+ + + + | RED CELL | 5.21 | 4.50 - 6.00 | [facility] | | | COUNT | | M/cu mm | LABORATORY | | | | | | SERVICES, | | | | | | [facility] + | | | | | | [facility]AL[facility] | | + +-------+ + + + | HEMOGLOBIN | 16.0 | 13.5 - 17.5 | [facility] | | | | | g/dL | LABORATORY | | | | | | SERVICES, | | | | | | [facility] + | | | | | | [facility]ALING | | + +-------+ + + + | HEMATOCRIT | 44.7 | 41.0 - 53.0 % | [facility] | | | | | | LABORATORY | | | | | | SERVICES, | | | | | | [facility] + | | | | | | [facility]AL[facility] | | + +-------+ + + + | MCV | 85.8 | 80.0 - 96.0 fL | [facility] | | | | | | LABORATORY | | | | | | SERVICES, | | | | | | [facility] + | | | | | | [facility]ALING | | + +-------+ + + + | MCHC | 35.8 | 33.0 - 35.5 | [facility] | | | | | g/dL | LABORATORY | | | | | | SERVICES, | | | | | | [facility] + | | | | | | [facility]AL[facility] | | + +-------+ + + + | RDW SD | 37.0 | 35.1 - 46.3 fL | [facility] | | | | | | LABORATORY | | | | | | SERVICES, | | | | | | [facility] | [facility] + | | | | | | [facility]ALING | | + +-------+ + + + | PLATELET | 177 | 150 - 400 K/cu | [facility] | | | COUNT | | mm | LABORATORY | | | | | | SERVICES, | | | | | | [facility] + | | | | | | [facility]AL[facility] | | + +-------+ + + + | MPV | 10.7 | 9.7 - 12.3 fL | [facility] [...] + + + | [facility] | [address] | [place] [address] | | | SERVICES, [facility] | | | | | [facility] + HEALING | | | | + + + + + VALPROIC ACID, PLASMA (09/05/2015 4:10 PM PDT) [...] + | [facility] | [address] | [place] [address] | | | SERVICES, CORE | PARK [...] | | | LABORATORY | | | [place] | | | SERVICES, | | | [...] the MDRD equation recommended by the | [facility] | | National Kidney Disease Education Program. Estimated GFR | LABORATORY | | Interpretive Information: <60 mL/min/1.73 sq m | SERVICES, CORE | | Chronic Kidney Disease <15 mL/min/1.73 sq m | | | Kidney Failure Estimated GFR greater that 60 mL/min/1.73 sq m is of | | | limited clinical value. The MDRD equation is not valid in the | | | following situations: - Patients under 18 years of age - Severe | | | malnutrition or obesity - Vegetarian diet - Rapidly changing kidney | | | function | | + + + + + + + + | Performing | Address | City/State/Zipcode | Phone Number | | Organization | | | | + + + + + | [facility] | [address] | [place] [address] | | | JACINTA, JAMISON | JEROME [place]N | | | + + + + + documented in this encounter Visit Diagnoses + + | Diagnosis | + + | Encounter for long-term current use of medication | + + documented in this encounter"
--- OUTSIDE RECORDS SUMMARY | ~2019-03-11 | XMS | Encounter Summary ---
Demographics + + + | Address | [address] | | | [place] [address] | + + + | Home Phone | | + + + | Preferred Language | Unknown | + + + | Marital Status | | + + + | Baptist Affiliation | 1061 | + + + | Race | Unknown | + + + | Ethnic Group | Unknown | + + + Author + + + | Author | [facility] | | | and [place] | + + + | Organization | [facility] | | | and [...] [place] | | | | | [address] | | + + + + + | Christy Flaherty | ECON | [address] | | | | | [place] | | | | | [address] | | + + + + + Care Team Providers + +------+ + | Care Rivet Hole Puncher Name | Role | Phone | + [...] + + | 09/02/ | Office | [facility] | Cecilia, Aure | Localized skin mass, | | 2012 | Visit | CARE [address] | MD Janel [address] | lump, or swelling | | | | [place], [place] | [address] | (Primary Dx); Place | | | | [address] | [place] [address] | of occurrence, | | | | [phone] | [phone] | industrial places | | | | [...] - 09/02/2012 11:58 AM PDTSee dictation # [id number] sign ed by Aure Brooks MD at 09/02/2012 12:02 PM Aure Villalta MD - 3 12:00 AM PDT , URGENT CARE 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 GUARANTOR: [employer]. DATE OF INJURY: 08/18/2012 CLAIM #[id number] CHIEF COMPLAINT: Right hand swelling. SUBJECTIVE: The [...] Brooks MD PV / MS JOB #: [id number] signed by Aure Brooks MD at 09/07/2012 [...]
--- OUTSIDE RECORDS SUMMARY | ~2019-03-11 | XMS | Encounter Summary ---
Demographics + + + | Address | [address] | | | [place] [address] | + + + | Home Phone | | + + + | Preferred Language | Unknown | + + + | Marital Status | | + + + | Confucianism Affiliation | 1061 | + + + | Race | Unknown | + + + | Ethnic Group | Unknown | + + + Author + + + | Author | [facility] | | | and [place] | + + + | Organization | [facility] | | | [...] [place] | | | | | [address] | | + + + + + | Christy Grande | ECON | [address] | | | | | [place] | | | | | [address] | | + + + + + Care Team Providers + +------+ + | Care Receivable Executive Name | Role | Phone | + +------+ + | uJan Demarco MD | PCP | | + +------+ + Encounter Details +--------+ + + + + | Date | Type | Department | Care Team | Description | +--------+ + + + + | 05/22/ | Orders Only | [facility] | Jb Mendiola, | | | 2015 | | CARDIOLOGY FEL[facility]O | [address] | | | | | ECHO [address] | [place] [address] | | | | | [place] | [phone] | | | | | [address] | | | | | | [phone] | | | +--------+ + + + [...] 50 - 55 %. 3. There is gcsd-qq-qkofvbfr aortic regurgitation. | | + + + [...] 50 - 55 %. 3. There is kidg-rc-gdngvjyo aortic regurgitation. | | | FINDINGS -------- [...] | | | Aortic Valve: There is setf-tc-owzitqtp aortic regurgitation. Mitral | | | Valve: [...] | | mmHg PV Vmax: 1.10 m/s Service Order Expediter: MIKI Authenticated by: | | | Jb [...] between 50 - 55 %.3. There is dbgo-dz-ittioslc aortic regurgitation. | | FINDINGS--------ECG rhythm: Sinus [...] moderately | | calcified.Aortic Valve: There is ndbq-uk-pbvnwmid aortic regurgitation.Mitral Valve: The | | mitral [...] cmLVPWd: 1.06 cmLVOT Area: | | 4.42 uo2NWZU Diam: 2.37 cm%FS: 33.40 %EF(Teich): 61.58 %ESV(Teich): 54.19 | | mlLVIDs: 3.59 cmSV(Teich): 86.87 mlLAESV(A-L): 39.88 mlLAESV Index (A-L): 17.19 | | ml/m2LAAs A2C: 14.25 sz8ZUVYR A-L A2C: 37.04 mlLALs A2C: 4.65 cmLAAs A4C: 15.34 | | xa7LYIYS A-L A4C: 39.93 mlLALs A4C: 5.00 cmAo Diam: 3.20 cmLA Diam: 4.49 | | cmLA/Ao: 1.40AV maxP.10 mmHgAV meanP.59 mmHgAV Vmax: 1.81 m/Stormy Vmean: | | 1.22 m/Stormy VTI: 32.95 cmAVA Vmax: 1.92 cm2AVA (VTI): 2.49 ot5RYCJ (Vmax): 0.00 | | cm2/m2AVAI (VTI): 0.00 cm2/m2LVOT maxP.47 mmHgLVOT meanP.61 mmHgLVSI | | Dopp: 35.43 ml/m2LVSV Dopp: 82.19 mlLVOT Vmax: 0.78 m/sLVOT Vmean: 0.61 m/sLVOT | | VTI: 18.58 cmSeptal e': 0.06 m/sLateral e': 0.08 m/sPV maxP.90 mmHgPV Vmax: | | 1.10 m/s Service Order Expediter: MIKIAuthenticated by: Jb Mendiola MD, FACC, FACP, FASNCReport | | Date/Time: 05-22-2015 16:37:35 IMPRESSION: 1. This was a technically difficult study | | with suboptimal views.2. Overall left ventricular systolic function is low-normal with, | | an EF between 50 - 55 %.3. There is eftj-ol-tbhfzmvd aortic regurgitation. | |IVC/Hepatic Veins: The inferior [...] |PV Vmax: 1.10 m/s | | | |Service Order Expediter: RK | |Authenticated by: Jb Mendiola MD, FACC, FACP, FASDE | |Report Date/Time: 05-22-2015 16:37:35 | | | |IMPRESSION: | |1. This was a technically difficult study with suboptimal views. | |2. Overall left ventricular systolic function is low-normal with, an EF between 50 - 55 %. | |3. There is vkvt-nl-qswezury aortic regurgitation. | + + documented in this encounter Visit Diagnoses Not on filedocumented in this encounter"
--- OUTSIDE RECORDS SUMMARY | ~2019-03-11 | XMS | Encounter Summary ---
Demographics + + + | Address | [address] | | | [place] [address] | + + + | Home Phone | | + + + | Preferred Language | Unknown | + + + | Marital Status | | + + + | Baptist Affiliation | ASG | + + + | Race | White | + + + | Ethnic Group | Not or | + + + Author + + + | Author | [facility] | + + + | Organization | [facility] | + + + | Address | Unknown | + + + | Phone | Unavailable | + + + Support + + + + + | Name | Relationship | Address | Phone | + + + + + | Christy Flaherty | ECON | [address] | | | | | [place] | | | | | [address] | | + + + + + Care Team Providers + +------+ + | Care Material Assembler Name | Role | Phone | [...] | 2019 | Encounter | Center at [facility] [address] | [address] | | | | | [address] | [address] | | | | | Mailcode: Center | [place], [place] | | | | | for Health and | [address] | | | | | Healing, [address] | [phone] | | | | | [place], [place] | | | | | | [address] | | | | | | [phone] | | | +--------+ + + + [...]
--- OUTSIDE RECORDS SUMMARY | ~2019-03-11 | XMS | Encounter Summary ---
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 | [address] | | | | | chronic | [address] | [address] | | | | | pancreatitis | [facility] | Mailcode: | | | | | (HCC) | Rd | [facility] | | | | | Procedures | [place], [place] | [facility] | | | | | [place] | [address] | and Healing, | | | | | MULTIPHASE | Phone: | [address], | | | | | PANCREAS AND | [phone] | 3rd Floor | | | | | PELVIS [address] | Fax: | [place], [place] | | | | | CONTRAST | [phone] | [address] | | | | | [place] | | Phone: | | | | | ABD&PELV 1+ | | [phone] | | | | | SECTION/REGN | | Fax: | | | | | S | | [phone] | +--------+--------+ + + + + Encounter Details +--------+ + + + + | Date | Type | Department | Care Team | Description | +--------+ + + + + | 02/07/ | Lawn Care Specialist | [facility] | Duy Kat, | Idiopathic chronic | | 2019 | | Center at [facility] [address] | [address] | pancreatitis (HCC) | | | | [address] | [address] | (Primary Dx); Left | | | | Mailcode: Center | [place], [place] | upper quadrant pain | | | | for Health and | [address] | | | | | [facility] | [phone] | | | | | [place], [place] | | | | | | [address] | | | | | | [phone] | | | +--------+ + + + [...] now presented. | | | |Final signature: Agustina Cormier MD 02/20/2019 3:49 PM | |Preliminary: [...]
--- OUTSIDE RECORDS SUMMARY | ~2019-03-11 | XMS | Encounter Summary ---
Demographics + + + | Address | [address] | | | [place] [address] | + + + | Home Phone | | + + + | Preferred Language | Unknown | + + + | Marital Status | | + + + | Confucianist Affiliation | 1061 | + + + | Race | Unknown | + + + | Ethnic Group | Unknown | + + + Author + + + | Author | [facility] | | | and [place] | + + + | Organization | [facility] | | [...] [place] | | | | | [address] | | + + + + + | Christy Flaherty | ECON | [address] | | | | | [place] | | | | | [address] | | + + + + + Care Team Providers + +------+ + | Care Forest Officer Name | Role | Phone | + +------+ + | Juan Demarco MD | PCP | | + +------+ + Encounter Details +--------+ + + + + | Date | Type | Department | Care Team | Description | +--------+ + + + + | 12/24/ | Orders Only | [facility] | Conversion | | | 2014 | | INFECTIOUS DISEASE | Transaction, | | | | | [address] | Provider Unknown | | | | | [place], [place] | | | | | | [address] | (Fax) | | | | | [phone] | | | +--------+ + + + [...] | EXTERNAL LAB: CBC | Routin | 12/24/2014 | | Results for this | | | e | 12:00 AM | | procedure are in the | | | | PDT | | results section. | + +--------+ + + + | CCP ANTIBODIES, IGG | Routin | 12/24/2014 | | Results for this | | IGA | e | 12:00 AM | | procedure are in the | | | | PDT | | results section. | + +--------+ + + + | ANTISTREPTOLYSIN O, | Routin | 12/24/2014 | | Results for this | | QUANT | e | 12:00 AM | | procedure are in the | | | | PDT | | results section. | + +--------+ + + + | SEDIMENTATION RATE, | Routin | 12/24/2014 | | Results for this | | AUTOMATED | e | 12:00 AM | | procedure are in the | | | | PDT | | results section. | + +--------+ + + + | C-REACTIVE PROTEIN | Routin | 12/24/2014 | | Results for this | | | e | 12:00 AM | | procedure are in the | | | | PDT | | results section. | + +--------+ + + + | PROTEIN | Routin | 12/24/2014 | | Results for this | | ELECTROPHORESIS, | e | 12:00 AM | | procedure are in the | | SERUM | | PDT | | results section. | + +--------+ + + + | IMMUNOGLOBULIN A | Routin | 12/24/2014 | | Results for this | | | e | 12:00 AM | | procedure are in the | | | | PDT | | results section. | + +--------+ + + + | FERRITIN | Routin | 12/24/2014 | | Results for this | | | e | 12:00 AM | | procedure are in the | | | | PDT | | results section. | + +--------+ + + + | COMPREHENSIVE | Routin | 12/24/2014 | | Results for this | | METABOLIC PANEL | e | 12:00 AM | | procedure are in the | | | | PDT | | results section. | + +--------+ + + + documented in this encounter Results CCP Antibodies, IgG IgA (12/24/2014 12:00 AM PDT) + + | Specimen | + + | Blood specimen | | (specimen) | + + + + + | Narrative | Performed At | + + + | <16 | EXTERNAL LAB | + + + + +---------+ + + | Performing | Address | City/State/Zipcode | Phone Number | | Organization | | | | + +---------+ + + | EXTERNAL LAB | | | | + +---------+ + + Antistreptolysin O, Quant (12/24/2014 12:00 AM PDT) + +-------+ + + + | Component | Value | Ref Range | Performed | Pathologist | | | | | At | Signature | + +-------+ + + + | Anti | 448 | | EXTERNAL | | | Streptolysi | | | LAB | | | n O | | | | | + +-------+ + + + + + | Specimen | + + | Blood specimen | | (specimen) | + + + +---------+ + + | Performing | Address | City/State/Zipcode | Phone Number | | Organization | | | | + +---------+ + + | EXTERNAL LAB | | | | + +---------+ + + Sedimentation rate, automated (12/24/2014 12:00 AM PDT) + +-------+ + + + | Component | Value | Ref Range | Performed | Pathologist | | | | | At | Signature | + +-------+ + + + | Sed Rate | 2 | | EXTERNAL | | | | [...] + +---------+ + + External Lab: CBC (12/24/2014 12:00 AM PDT) + +-------+ + + + | Component | Value | Ref Range | Performed | Pathologist | | | | | At | Signature | + +-------+ + + + | WBC | 5.1 | 10 | EXTERNAL | | | | | | LAB | | + +-------+ + + + | RED CELL | 5.25 | 10 | EXTERNAL | | | COUNT | | | LAB | | + +-------+ + + + | Hgb | 15.2 | g/dL | EXTERNAL | | | | | | LAB | | + +-------+ + + + | Hematocrit, | 49.5 | % | EXTERNAL | | | POC | | | LAB | | + +-------+ + + + | MCV | 94.2 | fL | EXTERNAL | | | | | | LAB | | + +-------+ + + + | MCH | 29 | pg | EXTERNAL | | | | | | LAB | | + +-------+ + + + | MCHC | 31 | g/dL | EXTERNAL | | | | | | LAB | | + +-------+ + + + | Platelet | 169 | K/ L | EXTERNAL | | | Count | | | LAB | | | Plasma | | | | | + +-------+ + + + | RDW-CV | 12.6 | % | EXTERNAL | | | | | | LAB | | + +-------+ + + + | MPV | | fL | EXTERNAL | | | | | | LAB | | + +-------+ + + + | Differentia | | | EXTERNAL | | | l Type | | | LAB | | + +-------+ + + + | % Segmented | 45.2 | % | EXTERNAL | | | | | | LAB | | | Neutrophils | | | | | + +-------+ + + + | % | 43.0 | % | EXTERNAL | | | Lymphocytes | | | LAB | | + +-------+ + + + | % Monocytes | 8.6 | % | EXTERNAL | | | | | | LAB | | + +-------+ + + + | % | 2.5 | % | EXTERNAL | | | Eosinophils | | | LAB | | + +-------+ + + + | % Basophils | 0.7 | % | EXTERNAL | | | | | | LAB | | + +-------+ + + + | Absolute | | / L | EXTERNAL | | | Segmented | | | LAB | | | Neutrophils | | | | | + +-------+ + + + | Absolute | | / L | EXTERNAL | | | Lymphocytes | | | LAB | | + +-------+ + + + | Absolute | | / L | EXTERNAL | | | Monocytes | | | LAB | | + +-------+ + + + | Absolute | | / L | EXTERNAL | | | Eosinophils | | | LAB | | + +-------+ + + + | Absolute | | [...] | + +---------+ + + C-Reactive Protein (12/24/2014 12:00 AM PDT) + + + + + + | Component | Value | Ref Range | Performed | Pathologist | | | | | At | Signature | + + + + + + | CRP | 5Comment: < | mg/dL | EXTERNAL | | | [...] | | | + +---------+ + + Protein Electrophoresis, Serum (12/24/2014 12:00 AM PDT) + +-------+ + + + | Component | Value | Ref Range | Performed | Pathologist | | | | | At | Signature | + +-------+ + + + | Protein, | 6.2 | | EXTERNAL | | | Total | | | LAB | | + +-------+ + + + | Albumin | 3.98 | g/dL | EXTERNAL | | | | | | LAB | | + +-------+ + + + | ALPHA 1, BF | 0.14 | | EXTERNAL | | | | | | LAB | | + +-------+ + + + | ALPHA 2 | 0.58 | | EXTERNAL | | | GLOBULIN | | | LAB | | + +-------+ + + + | Beta-1 | 0.82 | | EXTERNAL | | | | | | LAB | | + +-------+ + + + | BETA 2, BF | | | EXTERNAL | | | | | | LAB | | + +-------+ + + + | GAMMA | 0.68 | | EXTERNAL | | | GLOBULIN | | | LAB | | + +-------+ + + + | Albumin | | | EXTERNAL | | | | | | LAB | | + +-------+ + + + | ALPHA 1, BF | | | EXTERNAL | | | | | | LAB | | + +-------+ + + + | Alpha 2 % | | | EXTERNAL | | | | | | LAB | | + +-------+ + + + | Beta-1 % | | | EXTERNAL | | | | | | LAB | | + +-------+ + + + | Beta-2 % | | | EXTERNAL | | | | | | LAB | | + +-------+ + + + | GAMMA, BF | | | EXTERNAL | | | | | | LAB | | + +-------+ + + + | Interpretat | | | EXTERNAL | | | ion: | | | LAB | | + +-------+ + + + | Immunofixat | | | EXTERNAL | | | ion, Urine | | | LAB | | | Interp | | | | | + +-------+ + + + + + | Specimen | + + | Blood specimen | | (specimen) | + + + +---------+ + + | Performing | Address | City/State/Zipcode | Phone Number | | Organization | | | | + +---------+ + + | EXTERNAL LAB | | | | + +---------+ + + Immunoglobulin A (12/24/2014 12:00 AM PDT) + +-------+ + + + | Component | Value | Ref Range | Performed | Pathologist | | | | | At | Signature | + +-------+ + + + | Immunoglobu | 151 | | EXTERNAL | | | lindsey IgA | | | LAB | | + +-------+ + + + + + | Specimen | + + | Blood specimen | | (specimen) | + + + + + | Narrative | Performed At | + + + | Immunoglobulin M--54 Immunoglobulin E--105.5 | EXTERNAL LAB | + + + + +---------+ + + | Performing | Address | City/State/Zipcode | Phone Number | | Organization | | | | + +---------+ + + | EXTERNAL LAB | | | | + +---------+ + + Ferritin (12/24/2014 12:00 AM PDT) + +-------+ + + + | Component | Value | Ref Range | Performed | Pathologist | | | | | At | Signature | + +-------+ + + + | Ferritin, | 219.8 | ng/mL | EXTERNAL | | | External | [...] + +---------+ + + Comprehensive Metabolic Panel (12/24/2014 12:00 AM PDT) + +-------+ + + + | Component | Value | Ref Range | Performed | Pathologist | | | | | At | Signature | + +-------+ + + + | Glucose, | 134 | mg/dL | EXTERNAL | | | Fasting | | | LAB | | + +-------+ + + + | BUN | 18 | mg/dL | EXTERNAL | | | | | | LAB | | + +-------+ + + + | Creatinine | 0.93 | mg/dL | EXTERNAL | | | | | | LAB | | + +-------+ + + + | BUN/Creatin | 19.4 | | EXTERNAL | | | ine Ratio | | | LAB | | + +-------+ + + + | Calcium | 8.8 | mg/dL | EXTERNAL | | | | | | LAB | | + +-------+ + + + | Protein, | 6.2 | g/dL | EXTERNAL | | | Total | | | LAB | | + +-------+ + + + | Albumin | 4.1 | | EXTERNAL | | | | | | LAB | | + +-------+ + + + | Globulin | 2.1 | | EXTERNAL | | | | | | LAB | | + +-------+ + + + | A/G Ratio | 2.0 | | EXTERNAL | | | | | | LAB | | + +-------+ + + + | Bilirubin | 0.4 | mg/dL | EXTERNAL | | | Total | | | LAB | | + +-------+ + + + | ALP, | 61 | | EXTERNAL | | | External | | | LAB | | + +-------+ + + + | ALT | 13 | U/L | EXTERNAL | | | | | | LAB | | + +-------+ + + + | AST | 12 | U/L | EXTERNAL | | | | | | LAB | | + +-------+ + + + | Na | 138 | mmol/L | EXTERNAL | | | | | | LAB | | + +-------+ + + + | K | 4.1 | mmol/L | EXTERNAL | | | | | | LAB | | + +-------+ + + + | Cl | 102 | mmol/L | EXTERNAL | | | | | | LAB | | + +-------+ + + + | CO2 | 30 | mmol/L | EXTERNAL | | | | | | LAB | | + +-------+ + + + | Anion Gap | 10.1 | mmol/L | EXTERNAL | | | | | | LAB | | + +-------+ + + + | Estimated | 86 | mg/dL | EXTERNAL | | | [...]
--- OUTSIDE RECORDS SUMMARY | ~2019-03-11 | XMS | Encounter Summary ---
Demographics + + + | Address | [address] | | | [place] [address] | + + + | Home Phone | | + + + | Preferred Language | Unknown | + + + | Marital Status | | + + + | Church Affiliation | 1061 | + + + | Race | Unknown | + + + | Ethnic Group | Unknown | + + + Author + + + | Author | [facility] | | | and [place] | + + + | Organization | [facility] | | | [...] [place] | | | | | [address] | | + + + + + | Christy Flaherty | ECON | [address] | | | | [place] | | | | | [address] | | + + + + + Care Team Providers + +------+ + | Care Deck Supervisor Name | Role | Phone | [...] + + | 09/16/ | Office | [facility] | [place] | Contusion of right | | 2012 | Visit | [facility] | MD [address] | hand (Primary Dx); | | | | [address] | [facility] | Place of occurrence, | | | | [address] [facility] | [place] [address] | industrial places | | | | [place], [place] | [phone] | and premises | | | | [address] | | | | | | [phone] | | | +--------+---------+ + + + [...] MD - 09/16/2012 5:11 PM PDTSee dictation [id number] christopher d by [place] MD at 09/16/2012 5:12 PM PDTWaring, [place] MD - 09/17/19 13 12:00 AM PDT OCCUPATIONAL MEDICINE [address] [place] [address] [place] [address] FAX: [phone] OFFICE VISIT : 1965 Claim number: [id number] Date of injury: 08/18/2012 Employer: [employer] Guarantor: [...] as of yet. Hollie Brooks MD / [facility] JOB #: [id number] signed by [place] MD at 10/08/2012 [...]
--- OUTSIDE RECORDS SUMMARY | ~2019-03-11 | XMS | Encounter Summary ---
Demographics + + + | Address | [address] | | | [place] [address] | + + + | Home Phone | | + + + | Preferred Language | Unknown | + + + | Marital Status | | + + + | Judaism Affiliation | 1061 | + + + | Race | Unknown | + + + | Ethnic Group | Unknown | + + + Author + + + | Author | [facility] | | | and [place] | + + + | Organization | [facility] | [...] [place] | | | | | [address] | | + + + + + | Christy Flaherty | ECON | [address] | | | | | [place] | | | | | [address] | | + + + + + Care Team Providers + +------+ + | Care Window Installer Name | Role | Phone | + +------+ + | Juan Demarco MD | PCP | | + +------+ + Encounter Details +--------+ + + + + | Date | Type | Department | Care Team | Description | +--------+ + + + + | 05/06/ | Orders Only | [facility] | Conversion | | | 2016 | | INFECTIOUS DISEASE | Transaction, | | | | | [address] | Provider Unknown | | | | | [place], [place] | | | | | | [address] | (Fax) | | | | | [phone] | | | +--------+ + + + [...]
--- OUTSIDE RECORDS SUMMARY | ~2019-03-11 | XMS | Encounter Summary ---
Demographics + + + | Address | [address] | | | [place] [address] | + + + | Home Phone | | + + + | Preferred Language | Unknown | + + + | Marital Status | | + + + | Yazidi Affiliation | 1061 | + + + [...] [place] | | | | | [address] | | + + + + + | Christy Grande | ECON | [address] | | | | | [place] | | | | | [address] | | + + + + + Care Team Providers + +------+ + | Care Enrichment Director Name | Role | Phone | + +------+ + | Juan Demarco MD | PCP | | + +------+ + Encounter Details +--------+ + + + + | Date | Type | Department | Care Team | Description | +--------+ + + + + | 12/05/ | Hospital | [facility] | Conversion | Rheumatic fever; | | 2014 | Encounter | [facility] | Transaction, | Coccidioidomycosis | | | | ECHOCARDIOGRAPHY | Provider Unknown | | | | | [address] [facility] | | | | | | [place], [place] | (Fax) | | | | | [address] | | | | | | [phone] | | | +--------+ + + + [...] | mometasone | | | 0 | /06/15 | | | (ELOCON) 0.1 % cream [...] + | ECHO COMPLETE | Routin | 12/05/2014 | | Results for this | | | e | 1:35 PM | | procedure are in the | | | | PDT | | results section. | + +--------+ + + + documented in this encounter Results ECHO Complete (12/05/2014 1:35 PM PDT) + + | Specimen | + + | | + + + + + | Impressions | Performed At | + + + | 1. Overall left ventricular systolic function is low-normal with, an | | | EF between 50 - 55 %. 2. The right ventricle is moderately enlarged | | | measuring between 3.8 - 4.1 cm. 3. The left atrium is mildly dilated. | | | 4. There is rioaufki-ua-dznwbt aortic regurgitation. 5. Suboptimal | | | study to evaluate for vegetation. Recommend KRAIG to rule out | | | vegetations and to assess the severity of aortic regurgitation. | | + + + + + + | Narrative | Performed At | + + + | Patient Name: JOHNNY GRANDE Date of : 1965 | | | Performing Physician: Belia Nelson MD | | | | | | INDICATIONS R/O VEGETATION CONCLUSIONS | | | 1. Overall left ventricular systolic function is low-normal with, an | | | EF between 50 - 55 %. 2. The right ventricle is moderately enlarged | | | measuring between 3.8 - 4.1 cm. 3. The left atrium is mildly dilated. | | | 4. There is llgbcgbm-zf-etpcfr aortic regurgitation. 5. Suboptimal | | | study to evaluate for vegetation. Recommend KRAIG to rule out | | | vegetations and to assess the severity of aortic regurgitation. | | | FINDINGS -------- [...] | | | Ventricle: The left ventricle cavity size is normal. Left Ventricle: | | | Left ventricular wall thickness is normal. Right Ventricle: The right | | | ventricle is moderately enlarged measuring between 3.8 - 4.1 cm. | | | Left Atrium: The left atrium is mildly dilated. Right Atrium: The | | | right atrial size is normal. Aortic Valve: The aortic valve was not | | | well visualized. Aortic Valve: The aortic valve is moderately | | | calcified. Aortic Valve: There is itlxtint-uz-vyiqio aortic | | | regurgitation. Aortic Valve: There is no evidence of aortic stenosis. | | | Mitral Valve: Normal appearing mitral valve. Tricuspid Valve: The | | | tricuspid valve was not well visualized. Tricuspid Valve: Trace | | | tricuspid regurgitation present. Tricuspid Valve: Pulmonary artery | | | systolic pressure could not be assessed due to the absence of adequate | | | TR jet. Pulmonic Valve: The pulmonic valve was not well visualized. | | | Pericardium: There is no pericardial effusion. IVC/Hepatic Veins: | | | The IVC is normal size (1.5-2.5cm) and collapses >50% with sniff, | | | consistent with central venous pressures of 5-10mmHg. Thrombus: | | | Suboptimal study to evaluate for vegetation. Recommend KRAIG to rule out | | | vegetations and to assess the severity of aortic regurgitation. | | | Septum: Lipomatous Hypertrophy of the atrial septum is present | | | MEASUREMENTS IVC: 1.58 cm LA Major: 4.52 cm | | | EDV(Teich): 119.36 ml IVSd: 1.09 cm LVIDd: 5.02 cm LVPWd: | | | 1.11 cm LVOT Diam: 2.40 cm %FS: 27.24 % EF(Teich): | | | 52.78 % ESV(Teich): 56.35 ml IVSs: 1.25 cm LVIDs: 3.65 cm | | | LVPWs: 1.25 cm SV(Teich): 63.00 ml RA Major: 4.91 cm | | | RVIDd: 3.77 cm LAESV(A-L): 52.87 ml LAESV Index (A-L): | | | 24.03 ml/m2 LAAs A2C: 16.90 cm2 LAESV A-L A2C: 52.54 ml LALs | | | A2C: 4.61 cm LAAs A4C: 17.00 cm2 LAESV A-L A4C: 48.85 ml | | | LALs A4C: 5.02 cm Ao Diam: 3.43 cm AV Cusp: 2.18 cm LA | | | Diam: 4.06 cm LA/Ao: 1.18 %FS: 25.49 % EDV(Teich): | | | 135.94 ml EF(Teich): 49.82 % ESV(Teich): 68.20 ml IVSd: | | | 1.00 cm IVSs: 1.28 cm LVIDd: 5.31 cm LVIDs: 3.95 cm | | | LVPWd: 1.07 cm LVPWs: 1.28 cm SV(Teich): 67.73 ml D-E | | | Excursion: 1.52 cm E-F Bowie: 0.26 m/s HR: 56.66 BPM AV | | | maxP.28 mmHg AV meanP.69 mmHg AV Vmax: 2.07 m/s | | | AV Vmean: 1.38 m/s AV VTI: 43.11 cm JENNI Vmax: 1.83 cm2 JENNI | | | (VTI): 1.92 cm2 LVCI Dopp: 2.13 l/minm2 LVCO Dopp: 4.68 | | | l/min HR: 56.48 BPM LVOT maxP.82 mmHg LVOT meanPG: | | | 1.46 mmHg LVSI Dopp: 37.72 ml/m2 LVSV Dopp: 82.99 ml LVOT | | | Vmax: 0.84 m/s LVOT Vmean: 0.57 m/s LVOT VTI: 18.25 cm MV | | | E George: 0.70 m/s MV PHT: 80.50 ms MVA By PHT: 2.73 cm2 | | | Septal e': 0.05 m/s Septal E/e': 11.93 Lateral e': 0.08 m/s | | | Lateral E/e': 8.73 P Vein D: 0.43 m/s P Vein S/D Ratio: | | | 0.99 P Vein S: 0.42 m/s HR: 58.77 BPM PV maxP.78 mmHg | | | PV meanP.93 mmHg PV Vmax: 0.66 m/s PV Vmean: 0.45 m/s | | | PV VTI: 15.68 cm TV A George: 0.55 m/s TV Dec Bowie: 1.98 | | | m/s2 TV Dec Time: 284.09 ms TV E George: 0.56 m/s TV E/A Ratio: | | | 1.01 Chief Counsel: CM Authenticated by: Belia Nelson MD | | | Report Date/Time: 12-05-2014 20:23:19 | | + + + + + | Procedure Note | + + | Mohit Underwood Conversion - 11/11/2018 6:16 AM PDT Patient Name: Jen GRANDE of | | : 1965 Performing Physician: Belia Nelson | | MD INDICATIONS R | | /O VEGETATION CONCLUSIONS 1. Overall left ventricular systolic function is | | low-normal with, an EF between 50 - 55 %.2. The right ventricle is moderately enlarged | | measuring between 3.8 - 4.1 cm.3. The left atrium is mildly dilated.4. There is | | zvzwqgfs-hh-fwlsig aortic regurgitation.5. Suboptimal study to evaluate for vegetation. | | Recommend KRAIG to rule out vegetations and to assess the severity of aortic | | regurgitation. FINDINGS--------ECG rhythm: Sinus rhythm.Study: A 2-dimensional | | transthoracic echocardiogram with m-mode, spectral and color flow Doppler was | | perfomed.Study: This was a technically difficult study with suboptimal views.Left | | Ventricle: Overall left ventricular systolic function is low-normal with, an EF between | | 50 - 55 %.Left Ventricle: The left ventricle cavity size is normal.Left Ventricle: Left | | ventricular wall thickness is normal.Right Ventricle: The right ventricle is moderately | | enlarged measuring between 3.8 - 4.1 cm.Left Atrium: The left atrium is mildly | | dilated.Right Atrium: The right atrial size is normal.Aortic Valve: The aortic valve was | | not well visualized.Aortic Valve: The aortic valve is moderately calcified.Aortic | | Valve: There is rueqpfmz-sf-aucuqm aortic regurgitation.Aortic Valve: There is no | | evidence of aortic stenosis.Mitral Valve: Normal appearing mitral valve.Tricuspid Valve: | | The tricuspid valve was not well visualized.Tricuspid Valve: Trace tricuspid | | regurgitation present.Tricuspid Valve: Pulmonary artery systolic pressure could not be | | assessed due to the absence of adequate TR jet.Pulmonic Valve: The pulmonic valve was | | not well visualized.Pericardium: There is no pericardial effusion.IVC/Hepatic Veins: The | | IVC is normal size (1.5-2.5cm) and collapses >50% with sniff, consistent with central | | venous pressures of 5-10mmHg.Thrombus: Suboptimal study to evaluate for vegetation. | | Recommend KRAIG to rule out vegetations and to assess the severity of aortic | | regurgitation.Septum: Lipomatous Hypertrophy of the atrial septum is present | | MEASUREMENTS IVC: 1.58 cmLA Major: 4.52 cmEDV(Teich): 119.36 mlIVSd: | | 1.09 cmLVIDd: 5.02 cmLVPWd: 1.11 cmLVOT Diam: 2.40 cm%FS: 27.24 %EF(Teich): | | 52.78 %ESV(Teich): 56.35 mlIVSs: 1.25 cmLVIDs: 3.65 cmLVPWs: 1.25 cmSV(Teich): | | 63.00 mlRA Major: 4.91 cmRVIDd: 3.77 cmLAESV(A-L): 52.87 mlLAESV Index (A-L): | | 24.03 ml/m2LAAs A2C: 16.90 [id number] A-L A2C: 52.54 mlLALs A2C: 4.61 cmLAAs A4C: | | 17.00 [id number] A-L A4C: 48.85 mlLALs A4C: 5.02 cmAo Diam: 3.43 cmAV Cusp: 2.18 | | cmLA Diam: 4.06 cmLA/Ao: 1.18%FS: 25.49 %EDV(Teich): 135.94 mlEF(Teich): 49.82 | | %ESV(Teich): 68.20 mlIVSd: 1.00 cmIVSs: 1.28 cmLVIDd: 5.31 cmLVIDs: 3.95 | | cmLVPWd: 1.07 cmLVPWs: 1.28 cmSV(Teich): 67.73 mlD-E Excursion: 1.52 cmE-F | | Bowie: 0.26 m/sHR: 56.66 BPMAV maxP.28 mmHgAV meanP.69 mmHgAV Vmax: | | 2.07 m/Stormy Vmean: 1.38 m/Stormy VTI: 43.11 cmAVA Vmax: 1.83 cm2AVA (VTI): 1.92 | | jn2IZTE Dopp: 2.13 l/fqrb2VUYS Dopp: 4.68 l/minHR: 56.48 BPMLVOT maxP.82 | | mmHgLVOT meanP.46 mmHgLVSI Dopp: 37.72 ml/m2LVSV Dopp: 82.99 mlLVOT Vmax: | | 0.84 m/sLVOT Vmean: 0.57 m/sLVOT VTI: 18.25 cmMV E George: 0.70 m/sMV PHT: 80.50 | | msMVA By PHT: 2.73 tm4Hedawe e': 0.05 m/sSeptal E/e': 11.93Lateral e': 0.08 | | m/sLateral E/e': 8.73P Vein D: 0.43 m/sP Vein S/D Ratio: 0.99P Vein S: 0.42 | | m/sHR: 58.77 BPMPV maxP.78 mmHgPV meanP.93 mmHgPV Vmax: 0.66 m/sPV | | Vmean: 0.45 m/sPV VTI: 15.68 cmTV A George: 0.55 m/sTV Dec Bowie: 1.98 m/s2TV Dec | | Time: 284.09 msTV E George: 0.56 m/sTV E/A Ratio: 1.01 Chief Counsel: CMAuthenticated | | by: Belia Nelson MDReport Date/Time: 12-05-2014 20:23:19 IMPRESSION: 1. Overall left | | ventricular systolic function is low-normal with, an EF between 50 - 55 %.2. The right | | ventricle is moderately enlarged measuring between 3.8 - 4.1 cm.3. The left atrium is | | mildly dilated.4. There is rmzkddzr-mf-qmrsnz aortic regurgitation.5. Suboptimal study | | to evaluate for vegetation. Recommend KRAIG to rule out vegetations and to assess the | | severity of aortic regurgitation. | |LVPWd: 1.11 cm | |LVOT Diam: 2.40 cm | |%FS: 27.24 % | |EF(Teich): 52.78 % | |ESV(Teich): 56.35 ml | |IVSs: 1.25 cm | |LVIDs: 3.65 cm | |LVPWs: 1.25 cm | |SV(Teich): 63.00 ml | |RA Major: 4.91 cm | |RVIDd: 3.77 cm | |LAESV(A-L): 52.87 ml | |LAESV Index (A-L): 24.03 ml/m2 | |LAAs A2C: 16.90 cm2 | |LAESV A-L A2C: 52.54 ml | |LALs A2C: 4.61 cm | |LAAs A4C: 17.00 cm2 | |LAESV A-L A4C: 48.85 ml | |LALs A4C: 5.02 cm | |Ao Diam: 3.43 cm | |AV Cusp: 2.18 cm | |LA Diam: 4.06 cm | |LA/Ao: 1.18 | |%FS: 25.49 % | |EDV(Teich): 135.94 ml | |EF(Teich): 49.82 % | |ESV(Teich): 68.20 ml | |IVSd: 1.00 cm | |IVSs: 1.28 cm | |LVIDd: 5.31 cm | |LVIDs: 3.95 cm | |LVPWd: 1.07 cm | |LVPWs: 1.28 cm | |SV(Teich): 67.73 ml | |D-E Excursion: 1.52 cm | |E-F Bowie: 0.26 m/s | |HR: 56.66 BPM | |AV maxP.28 mmHg | |AV meanP.69 mmHg | |AV Vmax: 2.07 m/s | |AV Vmean: 1.38 m/s | |AV VTI: 43.11 cm | |JENNI Vmax: 1.83 cm2 | |JENNI (VTI): 1.92 cm2 | |LVCI Dopp: 2.13 l/minm2 | |LVCO Dopp: 4.68 l/min | |HR: 56.48 BPM | |LVOT maxP.82 mmHg | |LVOT meanP.46 mmHg | |LVSI Dopp: 37.72 ml/m2 | |LVSV Dopp: 82.99 ml | |LVOT Vmax: 0.84 m/s | |LVOT Vmean: 0.57 m/s | |LVOT VTI: 18.25 cm | |MV E George: 0.70 m/s | |MV PHT: 80.50 ms | |MVA By PHT: 2.73 cm2 | |Septal e': 0.05 m/s | |Septal E/e': 11.93 | |Lateral e': 0.08 m/s | |Lateral E/e': 8.73 | |P Vein D: 0.43 m/s | |P Vein S/D Ratio: 0.99 | |P Vein S: 0.42 m/s | |HR: 58.77 BPM | |PV maxP.78 mmHg | |PV meanP.93 mmHg | |PV Vmax: 0.66 m/s | |PV Vmean: 0.45 m/s | |PV VTI: 15.68 cm | |TV A George: 0.55 m/s | |TV Dec Bowie: 1.98 m/s2 | |TV Dec Time: 284.09 ms | |TV E George: 0.56 m/s | |TV E/A Ratio: 1.01 | | | |Chief Counsel: CM | |Authenticated by: Belia Nelson MD | |Report Date/Time: 12-05-2014 20:23:19 | | | |IMPRESSION: | |1. Overall left ventricular systolic function is low-normal with, an EF between 50 - 55 %. | |2. The right ventricle is moderately enlarged measuring between 3.8 - 4.1 cm. | |3. The left atrium is mildly dilated. | |4. There is igeikvwm-uh-zvgycr aortic regurgitation. | |5. Suboptimal study to evaluate for vegetation. Recommend KRAIG to rule out vegetations and t o assess the severity of aortic regurgitation. | + + documented in this encounter Visit Diagnoses + + | Diagnosis | + + | Rheumatic fever Rheumatic fever without mention of heart involvement | + + | Coccidioidomycosis Coccidioidomycosis, unspecified | + + documented in this encounter"
--- OUTSIDE RECORDS SUMMARY | ~2019-03-11 | XMS | Encounter Summary ---
Demographics + + + | Address | [address] | | | [place] [address] | + + + | Home Phone | | + + + | Preferred Language | Unknown | + + + | Marital Status | | + + + | Mandaen Affiliation | ASG | + + + [...] [place] | | | | | [address] | | + + + + + Care Team Providers + +------+ + | Care Cardroom Hand Name | Role | Phone | [...] Question | | 2016 | Encounter | [facility] | [address] | | | | | [address] | [place], [place] | | | | | [address] Mailcode: | [address] | | | | | [address] for | [phone] | | | | | Health and Healing, | | | | | | [facility] | | | | | | [place], [place] | | | | | | [address] | | | | | | [phone] | | | +--------+ + + + [...]
--- OUTSIDE RECORDS SUMMARY | ~2019-03-11 | XMS | Encounter Summary ---
Demographics + + + | Address | [address] | | | [place] [address] | + + + | Home Phone [...] [place] | | | | | [address] | | + + + + + Care Team Providers + +------+ + | Care Adjunct Mathematics Instructor Name | Role | Phone | [...] | Order | [address] | [place] | | | | | [address] | [address] | | | | | Mailcode: UHN83 | | | | | | [address] | | | | | | [address], [place] | | | | | | [address] | | | | | | [phone] | | | +--------+ + + + [...]
--- OUTSIDE RECORDS SUMMARY | ~2019-03-11 | XMS | Encounter Summary ---
Demographics + + + | Address | [address] | | | [place] [address] | + + + | Home Phone | | + + + | Preferred Language | Unknown | + + + | Marital Status | | + + + | Uatsdin Affiliation | 1061 | + + + [...] [place] | | | | | [address] | | + + + + + | Christy Flaherty | ECON | [address] | | | | | [place] | | | | | [address] | | + + + + + Care Team Providers + +------+ + | Care Property Inspector Name | Role | Phone | + +------+ + | Juan Demarco MD | PCP | | + +------+ + Encounter Details +--------+ + + + + | Date | Type | Department | Care Team | Description | +--------+ + + + + | 10/19/ | Orders Only | [facility] | Juan Manuel Sams | | | 2015 | | NEUROLOGY [address] | MD Nic [address] | | | | | [address] | [place] [address] | | | | | [place] | [place] [address] | | | | | [address] | [phone] | | | | | [phone] | | | +--------+ + + + [...] | EXTERNAL LAB: CBC | Routin | 10/19/2014 | | Results for this | | | e | 5:30 PM | | procedure are in the | | | | PDT | | results section. | + +--------+ + + + | URINALYSIS, | Routin | 10/19/2014 | | Results for this | | MICROSCOPIC ONLY | e | 5:30 PM | | procedure are in the | | | | PDT | | results section. | + +--------+ + + + | ANTISTREPTOLYSIN O, | Routin | 10/19/2014 | | Results for this | | QUANT | e | 5:30 PM | | procedure are in the | | | | PDT | | results section. | + +--------+ + + + | COMPREHENSIVE | Routin | 10/19/2014 | | Results for this | | METABOLIC PANEL | e | 5:30 PM | | procedure are in the | | | | PDT | | results section. | + +--------+ + + + documented in this encounter Results Antistreptolysin O, Quant (10/19/2014 5:30 PM PDT) + +---------+ + + + | Component | Value | Ref Range | Performed | Pathologist | | | | | At | Signature | + +---------+ + + + | Anti | 445 (A) | 0 - 250 IU/ml | [...] | | | + +---------+ + + Urinalysis, Microscopic Only (10/19/2014 5:30 PM PDT) + + + + + + | Component | Value | Ref Range | Performed | Pathologist | | | | | At | Signature | + + + + + + | Color | Yellow | | EXTERNAL | | | | | | LAB | | + + + + + + | Clarity | Clear | | EXTERNAL | | | | | | LAB | | + + + + + + | Specific | 1.023 | | EXTERNAL | | | Somis | | | LAB | | + + + + + + | Leukocyte | Negative | | EXTERNAL | | | Esterase, | | | LAB | | | Urine | | | | | + + + + + + | Nitrite, | Negative | | EXTERNAL | | | Urine | | | LAB | | + + + + + + | Urobilinoge | Normal | | EXTERNAL | | | n, Urine | | | LAB | | + + + + + + | Protein, | Negative | | EXTERNAL | | | Urine | | | LAB | | + + + + + + | pH, Urine | 5 | 5 - 9 | EXTERNAL | | | | | | LAB | | + + + + + + | Blood, | Positive | | EXTERNAL | | | Urine | | | LAB | | + + + + + + | Ketones | 50 (A) | 0 | EXTERNAL | | | | | | LAB | | + + + + + + | Bilirubin, | Negative | | EXTERNAL | | | Urine | | | LAB | | + + + + + + | Glucose, | Negative | | EXTERNAL | | | Urine [...] + +---------+ + + External Lab: CBC (10/19/2014 5:30 PM PDT) + + + + + + | Component | Value | Ref Range | Performed | Pathologist | | | | | At | Signature | + + + + + + | WBC | 15.1 (A) | 4.5 - 11.0 10 | EXTERNAL | | | | | | LAB | | + + + + + + | RED CELL | 4.75 | 10 | EXTERNAL | | | COUNT | | | LAB | | + + + + + + | Hgb | 13.9 | g/dL | EXTERNAL | | | | | | LAB | | + + + + + + | Hematocrit, | 42.8 | % | EXTERNAL | | | POC | | | LAB | | + + + + + + | MCV | 90.2 | fL | EXTERNAL | | | | | | LAB | | + + + + + + | MCH | 29 | pg | EXTERNAL | | | | | | LAB | | + + + + + + | MCHC | 32 | g/dL | EXTERNAL | | | | | | LAB | | + + + + + + | Platelet | 150 | K/ L | EXTERNAL | | | Count | | | LAB | | | Plasma | | | | | + + + + + + | RDW-CV | 11.4 | % | EXTERNAL | | | [...] + + + | % Segmented | 91 (A) | 39 - 80 % | EXTERNAL | | | | | | LAB | | | Neutrophils | | | | | + + + + + + | % | 3 (A) | 24 - 44 % | EXTERNAL | | | Lymphocytes | | | LAB | | + + + + + + | % Monocytes | 4 | 0 - 12 % | EXTERNAL | | | | | | LAB | | + + + + + + | % | 0 | 0 - 6 % | EXTERNAL [...] + +---------+ + + Comprehensive Metabolic Panel (10/19/2014 5:30 PM PDT) + +---------+ + + + | Component | Value | Ref Range | Performed | Pathologist | | | | | At | Signature | + +---------+ + + + | Glucose, | 110 (A) | 70 - 100 mg/dL | EXTERNAL | | | Fasting | | | LAB | | + +---------+ + + + | BUN | 13 | mg/dL | EXTERNAL | | | | | | LAB | | + +---------+ + + + | Creatinine | 1.08 | mg/dL | EXTERNAL | | | | | | LAB | | + +---------+ + + + | BUN/Creatin | 12 | | EXTERNAL | | | ine Ratio | | | LAB | | + +---------+ + + + | Calcium | 7.9 (A) | 8.4 - 10.2 | EXTERNAL | | | | | mg/dL | LAB | | + +---------+ + + + | Protein, | 5.5 (A) | 6.0 - 8.0 g/dL | EXTERNAL | | | Total | | | LAB | | + +---------+ + + + | Albumin | 3.5 | | EXTERNAL | | | | | | LAB | | + +---------+ + + + | Globulin | 2.0 | | EXTERNAL | | | | | | LAB | | + +---------+ + + + | A/G Ratio | 1.8 | | EXTERNAL | | | | | | LAB | | + +---------+ + + + | Bilirubin | 0.5 | mg/dL | EXTERNAL | | | Total | | | LAB | | + +---------+ + + + | ALP, | 58 | | EXTERNAL | | | External | | | LAB | | + +---------+ + + + | ALT | 19 | U/L | EXTERNAL | | | | | | LAB | | + +---------+ + + + | AST | 28 | U/L | EXTERNAL | | | | | | LAB | | + +---------+ + + + | Na | 135 | mmol/L | EXTERNAL | | | | | | LAB | | + +---------+ + + + | K | 3.9 | mmol/L | EXTERNAL | | | | | | LAB | | + +---------+ + + + | Cl | 107 | mmol/L | EXTERNAL | | | | | | LAB | | + +---------+ + + + | CO2 | 21 | mmol/L | EXTERNAL | | | | | | LAB | | + +---------+ + + + | Anion Gap | 10.9 | mmol/L | EXTERNAL | | | | | | LAB | | + +---------+ + + + | Estimated | 72 | mg/dL | EXTERNAL | | | GFR | | | LAB | | + +---------+ + + + [...]
--- OUTSIDE RECORDS SUMMARY | ~2019-03-11 | XMS | Encounter Summary ---
Demographics + + + | Address | [address] | | | [place] [address] | + + + | Home Phone | | + + + | Preferred Language | Unknown | + + + | Marital Status | | + + + | Taoist Affiliation | 1061 | + + + | Race | Unknown | + + + | Ethnic Group | Unknown | + + + Author + + + | Author | [facility] | | | and [place] | + + + | Organization | [facility] | | | [...] [place] | | | | | [id number] | | + + + + + | Christy Flaherty | ECON | [address] | | | | | [place] | | | | | [address] | | + + + + + Care Team Providers + +------+ + | Care Institutional Nutrition Consultant Name | Role | Phone | + +------+ + | Juan Demarco MD | PCP | | + +------+ + Encounter Details +--------+ + + + + | Date | Type | Department | Care Team | Description | +--------+ + + + + | 07/25/ | Orders Only | [facility] | Conversion | | | 2015 | | INFECTIOUS DISEASE | Transaction, | | | | | [address] | Provider Unknown | | | | | [place], [place] | | | | | | [address] | (Fax) | | | | | [phone] | | | +--------+ + + + [...] | + +--------+ + + + | RED CELL | 5.14 | 4.3 - 5.7 M/uL | EXTERNAL | | | COUNT | | | LAB | | + +--------+ + + + | Hgb | 15.5 | 13.5 - 18.0 | [...]
--- OUTSIDE RECORDS SUMMARY | ~2019-03-11 | XMS | Encounter Summary ---
Demographics + + + | Address | [address] | | | [place] [address] | + + + | Home Phone [...] [place] | | | | | [address] | | + + + + + Care Team Providers + +------+ + | Care Corporate Accounting Manager Name | Role | Phone | [...] + + | 04/09/ | Hospital | [address] | Taiwo Tilley, | | | 2018 - | Encounter | [facility] | [address] [place] [address] | | | | | [facility] | [facility] | | | 04/10/ | | [place], [place] | [place], [place] | | | 2017 | | [address] | [address] | | | | | [phone] | [phone] | | | | | | | | | | | | Laurence Barboza MD | | | | | | [address] | | | | | | [facility] | | | | | | [place], [place] | | | | | | [address] | | | | | | [phone] | | | | | | | | | | | | Amado Roger, | | | | | | [address] | | | | | | [facility] | | | | | | [place], [place] | | | | | | [address] | | | | | | [phone] | | | | | | | [...] Roger MD - 04/10/2017 7:24 AM PST [facility] Discharge Summary Discharging Provider: Amado Roger MD Discharging Attending Physician: Amado Roger MD PCP: Filippo Chen DO Admission Date: 04/09/2017 Discharge Date: 04/10/17 Hospital Stay: 1 day(s) Reason for Admission: 51 yo man with hx of obesity, seizures, VIKTORIA on BiPAP who has had 6 months of abdominal pain , weight loss (30 lbs), dysphagia/sore throat who was referred to [facility] for ERCP and under went EUS [...] upon disco ntinue. Meloxicam Diarrhea Bowel incontinence Iiosjbj-Utz-Rde Reductase Inhibitors Seizures Increased frequency of seizures, [...] focal neuro deficits Amado Roger MD, MSc Md Ophthalmologistearly intervention school psychologist Clinical Hospitalist and Medicine Teaching Services [facility] Pager: [phone] documented in this encounter Discharge Instructions Instructions [...] hours or on weekends and holiday Hospital Adhesive Bonding Machine Operator toll free [phone] and have the GI doctor devops solutions architect paged. The provider who performed your procedure: [...] + +--------+ + + + | NON AUDIOVISUAL EQUIPMENT OPERATOR CYTOLOGY | Routin | 04/09/2017 | | [...] + | MRN: | [facility] | | [id number] Date: 04/09/2017Patient Name: Daysi Cook #: | ENDOSCOPY | | [id number] of : 1965CSN: [id number] Type: | | | AmbulatoryRoom: GI 3Procedure: Upper EUSIndications: | | | Abnormal ultrasound of the abdomenProviders: | | | TAIWO TILLEY MD (Doctor), LUIS A MAYES RN (Nurse), | | | JYOTI RODRIGUEZ V Belt Skiver (V Belt Skiver)Referring MD: | | | TAIWO TILLEY MDRequesting [...] the procedure. | | | The Olympus [id number] AL5 Linear Echoendoscope #[id number] | | | was introduced through the mouth, and advanced | | | to the second part of duodenum. The | | | Olympus [id number] Endoscope #[id number] | | | was introduced through the [...] stylet | | | was used. A caltrans equipment operator was present and performed a preliminary | [...] Initiated On: | | | 04/09/2017 1:07 [facility] Letter to: FILIPPO CHEN DO | [...] | | + +---------+ + + NON AUDIOVISUAL EQUIPMENT OPERATOR CYTOLOGY (04/09/2017) + + + + + + | Component | Value | Ref Range | Performed | Pathologist | | | | | At | Signature | + + + + + + | NON-AUDIOVISUAL EQUIPMENT OPERATOR | SOURCE OF SPECIMEN:A | | [facility] [...] | + + + + + | [facility] | [address] | [place] [address] | | | PATHOLOGY | [address] [...] medicalrecord | | | | | | #[id number]. A. | | | | | | [...] | + + + + + | [facility] | [address] | [place] [address] | | | PATHOLOGY | [address] [...]
--- OUTSIDE RECORDS SUMMARY | ~2019-03-11 | XMS | Encounter Summary ---
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 | [address] | [address] | | | | | pancreatitis | [facility] | Mailcode: | | | | | (HCC) | Rd | [address] | | | | | Procedures | [place], [place] | [place] | | | | | CONSULT TO | [address] | [address] | | | | | GI PROCEDURE | Phone: | [place], | | | | | UNIT: EUS | [phone] | [place] [address] | | | | | LIMITED [place] | Fax: | Phone: | | | | | ANESTH UPPER | [phone] | [phone] | | | | | GI | | Fax: | | | | | ENDOSCOPIC | | [phone] | | | | | VISUALIZE | | | | | | | ND UPPR GI | | | | | [...] | Pancreatic | Paras K, | [address] | | | | | mass | MD [address] | [address] | | | | | Epigastric | [address] | Mailcode: | | | | | pain | [address] | Center for | | | | | Elevated | [place], [place] | Health and | | | | | lipase | [address] | Healing, | | | | | Procedures | Phone: | [address] | | | | | CONSULT TO | [phone] | [place], [place] | | | | | GASTROENTERO | Fax: | [phone] | | | | | LOGY | [phone] | Phone: | | | | | | | [phone] | | | | | | | Fax: | | | | | | | [phone] | +--------+--------+ + + + + Encounter Details +--------+---------+ + + + | Date | Type | Department | Care Team | Description | +--------+---------+ + + + | 03/11/ | Office | Dig[facility]ive Health | Taiwo Tilley, | 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 [facility] Patient Name: Daysi Flaherty MR#: [id number] : 1965 This is a 51 y/o [...] in the last one years. [facility]. On one or [...] 6 week with no resolution. He has [place] 1 stools. He is non-smoker (ex-smoker) and [...] upon disco ntinue. Meloxicam Diarrhea Bowel incontinence Plvwhox-Hte-Ici Reductase Inhibitors Seizures Increased frequency of seizures, [...]
--- OUTSIDE RECORDS SUMMARY | ~2019-03-11 | XMS | Encounter Summary ---
Demographics + + + | Address | [address] | | | [place] [address] | + + + | Home Phone | | + + + | Preferred Language | Unknown | + + + | Marital Status | | + + + | Christianity Affiliation | 1061 | + + + | Race | Unknown | + + + | Ethnic Group | Unknown | + + + Author + + + | Author | [facility] | | | and [place] | + + + | Organization | [facility] | | | and [...] [place] | | | | | [address] | | + + + + + | Christy Grande | ECON | [address] | | | | | [place] | | | | | [address] | | + + + + + Care Team Providers + +------+ + | Care Sales Consultant Residential Manager Name | Role | Phone | + +------+ + | Juan Demarco MD | PCP | | + +------+ + Encounter Details +--------+ + + + + | Date | Type | Department | Care Team | Description | +--------+ + + + + | 07/20/ | Orders Only | [facility] | Jb Mendiola, | | | 2017 | | CARDIOLOGY FELIBERTO | [address] | | | | | ECHO [address] | [place] [address] | | | | | [place] | [phone] | | | | | [address] | | | | | | [phone] | | | +--------+ + + + [...] TR | | | Vmax: 1.71 m/s Devil Tender: MIKI Authenticated by: Jb | | | Maury WASHINGTON, FACC, FACP, FASNC Report Date/Time: -- | | | [id number] | | + + + + + | Procedure Note | + + | Kj, Rad Conversion - 11/17/2018 7:26 PM PDT Patient Name: Jen GRANDE of | | : 1965 Performing Physician: Jb Mendiola MD, [facility], | | FACP, | | FASNC INDICATIONS--------- [...] (A-L): 22.13 ml/m2LAAs A2C: 17.71 | | [id number] A-L A2C: 56.35 mlLALs A2C: 4.72 cmLAAs A4C: 16.00 [id number] A-L A4C: | | 41.00 mlLALs A4C: 5.30 cmRAAs: 13.94 [id number] A-L: 30.97 mlRAESV MOD: 29.42 | | mlRALs: 5.33 cmAo Diam: 3.51 cmAV maxP.26 mmHgAV meanP.19 mmHgAV Vmax: | | 1.75 m/Stormy Vmean: 1.28 m/Stormy VTI: 37.85 cmAVA Vmax: 1.87 cm2AVA (VTI): 1.75 | | [id number] maxP.69 mmHgLVOT meanP.52 mmHgLVSI Dopp: 28.89 ml/m2LVSV Dopp: | | 66.46 mlLVOT Vmax: 0.82 m/sLVOT Vmean: 0.59 m/sLVOT VTI: 16.62 cmSeptal e': 0.06 | | m/sLateral e': 0.11 m/sPV maxP.22 mmHgPV Vmax: 1.14 m/sTR maxP.80 | | mmHgTR Vmax: 1.71 m/s Devil Tender: MIKIAuthenticated by: Jb Mendiola MD, FACC, FACP, | | FASNCReport Date/Time: -- [id number] IMPRESSION: 1. This was a technically | [...] |TR Vmax: 1.71 m/s | | | |Devil Tender: RK | |Authenticated by: Jb Mendiola MD, FACC, FACP, [facility] | |Report Date/Time: -- [id number]:11:50 | | | |IMPRESSION: | |1. This [...]
--- OUTSIDE RECORDS SUMMARY | ~2019-03-11 | XMS | Encounter Summary ---
Demographics + + + | Address | [address] | | | [place] [address] | + + + | Home Phone [...] | Author | [facility] | | | and [place] | + + + | Organization | [facility] [...] [place] | | | | | [address] | | + + + + + | Christy Flaherty | ECON | [address] | | | | | [place] | | | | | [address] | | + + + + + Care Team Providers + +------+ + | Care Corporate Consultant Name | Role | Phone | + +------+ + | Juan Demarco MD | PCP | | + +------+ + Encounter Details +--------+ + + + + | Date | Type | Department | Care Team | Description | +--------+ + + + + | 01/18/ | Hospital | [facility] | Conversion | Diagnosis unknown | | 2017 | Encounter | CONVERSION [address] | Transaction, | | | | | [address] | Provider Unknown | | | | | [place] | [phone] | | | | | [address] | | | | | | [phone] | | | +--------+ + + + [...] TWO TABLETS BY | | 0 | 05/16/ | | | (DEPAKOTE) [address] [...] 11/07/19 | | | mg tablet | | | | 16 | [...] | + +--------+ + + + | US ABDOMEN LIMITED | Routin | 01/15/2017 | | Results for this | | | e | 7:29 PM | | procedure are in the | | | | PDT | | results section. | + +--------+ + + + documented in this encounter Results US Abdomen Limited (01/15/2017 7:29 PM PDT) + + | Specimen | + + | | + + + + + | Narrative | Performed At | + + + | This is a non-reportable procedure without a radiologist report and | | | is used for image storage only | | + + + + + | Procedure Note | + + | Mohit Underwood - 11/10/2018 1:54 AM PDT This is a non-reportable procedure | | without a radiologist report and isused for image storage only | + + documented in this encounter Visit Diagnoses + + | Diagnosis | + + | Diagnosis unknown Other unknown and unspecified cause of morbidity or mortality | + + documented in this encounter"
--- OUTSIDE RECORDS SUMMARY | ~2019-03-11 | XMS | Encounter Summary ---
Demographics + + + | Address | [address] | | | [place] [address] | + + + | Home Phone [...] [place] | | | | | [address] | | + + + + + | Christy Flaherty | ECON | [address] | | | | | [place] | | | | | [address] | | + + + + + Care Team Providers + +------+ + | Care Boxing Trainer Name | Role | Phone | + +------+ + | Juan Demarco MD | PCP | | + +------+ + Encounter Details +--------+ + + + + | Date | Type | Department | Care Team | Description | +--------+ + + + + | 01/28/ | Orders Only | [facility] | Conversion | | | 2014 | | INFECTIOUS DISEASE | Transaction, | | | | | [address] | Provider Unknown | | | | | [place], [place] | | | | | | [address] | (Fax) | | | | | [phone] | | | +--------+ + + + [...] | CBC WITH MANUAL | Routin | 01/28/2015 | | Results for this | | DIFFERENTIAL | e | 12:00 AM | | procedure are in the | | | | PST | | results section. | + +--------+ + + + | ANTISTREPTOLYSIN O, | Routin | 01/28/2015 | | Results for this | | QUANT | e | 12:00 AM | | procedure are in the | | | | PST | | results section. | + +--------+ + + + | SEDIMENTATION RATE, | Routin | 01/28/2015 | | Results for this | | AUTOMATED | e | 12:00 AM | | procedure are in the | | | | PST | | results section. | + +--------+ + + + | C-REACTIVE PROTEIN | Routin | 01/28/2015 | | Results for this | | | e | 12:00 AM | | procedure are in the | | | | PST | | results section. | + +--------+ + + + | COMPREHENSIVE | Routin | 01/28/2015 | | Results for this | | METABOLIC PANEL | e | 12:00 AM | | procedure are in the | | | | PST | | results section. | + +--------+ + + + documented in this encounter Results Antistreptolysin O, Quant (01/28/2015 12:00 AM PST) + +-------+ + + + | Component | Value | Ref Range | Performed | Pathologist | | | | | At | Signature | + +-------+ + + + | Anti | 420 | | EXTERNAL | | | Streptolysi [...] + +---------+ + + Sedimentation rate, automated (01/28/2015 12:00 AM PST) + +-------+ + + + | Component | Value | Ref Range | Performed | Pathologist | | | | | At | Signature | + +-------+ + + + | Sed Rate | 1 | | EXTERNAL | | | | [...] +---------+ + + CBC with Manual Differential (01/28/2015 12:00 AM PST) + +-------+ + + + | Component | Value | Ref Range | Performed | Pathologist | | | | | At | Signature | + +-------+ + + + | WBC | 5.7 | 10 | EXTERNAL | | | | | | LAB | | + +-------+ + + + | RED CELL | 5.42 | 10 | EXTERNAL | | | COUNT | | | LAB | | + +-------+ + + + | Hgb | 16.2 | g/dL | EXTERNAL | | | | | | LAB | | + +-------+ + + + | Hematocrit, | 49.1 | % | EXTERNAL | | | POC | | | LAB | | + +-------+ + + + | MCV | 90.6 | fL | EXTERNAL | | | | | | LAB | | + +-------+ + + + | MCH | 30 | pg | EXTERNAL | | | | | | LAB | | + +-------+ + + + | MCHC | 33 | g/dL | EXTERNAL | | | | | | LAB | | + +-------+ + + + | RDW-CV | 12.7 | % | EXTERNAL | | | | | | LAB | | + +-------+ + + + | Platelet | 204 | K/ L | EXTERNAL | | | Count | | | LAB | | | Plasma | | | | | + +-------+ + + + | MPV | | fL | EXTERNAL | | | | | | LAB | | + +-------+ + + + | % Segmented | 43.7 | % | EXTERNAL | | | | | | LAB | | | Neutrophils | | | | | + +-------+ + + + | % | 42.7 | % | EXTERNAL | | | Lymphocytes | | | LAB | | + +-------+ + + + | % Monocytes | 10.5 | % | EXTERNAL | | | | | | LAB | | + +-------+ + + + | % | 2.6 | % | EXTERNAL | | | Eosinophils | | | LAB | | + +-------+ + + + | % Basophils | 0.5 | % | EXTERNAL | | | [...] | + +---------+ + + C-Reactive Protein (01/28/2015 12:00 AM PST) + + + + [...] + +---------+ + + Comprehensive Metabolic Panel (01/28/2015 12:00 AM PST) + +-------+ + + + | Component | Value | Ref Range | Performed | Pathologist | | | | | At | Signature | + +-------+ + + + | Glucose, | 94 | mg/dL | EXTERNAL | | | Fasting | | | LAB | | + +-------+ + + + | BUN | 15 | mg/dL | EXTERNAL | | | | | | LAB | | + +-------+ + + + | Creatinine | 0.89 | mg/dL | EXTERNAL | | | | | | LAB | | + +-------+ + + + | BUN/Creatin | 16.9 | | EXTERNAL | | | ine Ratio | | | LAB | | + +-------+ + + + | Calcium | 8.7 | mg/dL | EXTERNAL | | | | | | LAB | | + +-------+ + + + | Protein, | 6.4 | g/dL | EXTERNAL | | | Total | | | LAB | | + +-------+ + + + | Albumin | 4.1 | | EXTERNAL | | | | | | LAB | | + +-------+ + + + | Globulin | 2.3 [...] +-------+ + + + | ALP, | 65 | | EXTERNAL | | | External | | | LAB | | + +-------+ + + + | ALT | 14 | U/L | EXTERNAL | | | | | | LAB | | + +-------+ + + + | AST | 14 | U/L | EXTERNAL | | | | | | LAB | | + +-------+ + + + | Na | 138 | mmol/L | EXTERNAL | | | | | | LAB | | + +-------+ + + + | K | 4.0 | mmol/L | EXTERNAL | | | | | | LAB | | + +-------+ + + + | Cl | 103 | mmol/L | EXTERNAL | | | | | | LAB | | + +-------+ + + + | CO2 | 28 | mmol/L | EXTERNAL | | | | | | LAB | | + +-------+ + + + | Anion Gap | 11.0 | mmol/L | EXTERNAL | | | | | | LAB | | + +-------+ + + + | Estimated | 90 | mg/dL | EXTERNAL | [...]
--- OUTSIDE RECORDS SUMMARY | ~2019-03-11 | XMS | Encounter Summary ---
Demographics + + + | Address | [address] | | | [place] [address] | + + + | Home Phone [...] + | Author | [facility] | | | and [place] | + + + | Organization | [facility] | | | and [...] [place] | | | | | [address] | | + + + + + | Christy Flaherty | ECON | [address] | | | | [place] | | | | | [address] | | + + + + + Care Team Providers + +------+ + | Care Lubricator Granulator Name | Role | Phone | + +------+ + PCP | Unavailable | + +------+ + Encounter Details +--------+ + + + + | Date | Type | Department | Care Team | Description | +--------+ + + + + | 05/29/ | Hospital | [facility] | | | | 2007 | Encounter | MED CTR XRAY [address] | | | | | | [place] | | | | | | [place] [address] | | | | | | [phone] | | | +--------+ + + + [...]
--- OUTSIDE RECORDS SUMMARY | ~2019-03-11 | XMS | Clinical Summary ---
Demographics + + + | Address | [address] | | | [place] [address] | + + + | Home Phone | | + + + | Preferred Language | Unknown | + + + | Marital Status | | + + + | Cheondoism Affiliation | 1061 | + + + | Race | Unknown | + + + | Ethnic Group | Unknown | + + + Author + + + | Author | [facility] | | | and [place] | + + + | Organization | [facility] | | | [...] [place] | | | | | [address] | | + + + + + | Christy Flaherty | ECON | [address] | | | | | [place] | | | | | [address] | | + + + + + Care Team Providers + +------+ + | Care Head Of Marketing Adometry Name | Role | Phone | + +------+ + | Juan Demarco MD | PCP | | + +------+ + Allergies + [...] | | + + + +---------+------+------+-------+ | mometasone | | | 0 | 06/0 | | Activ | | (ELOCON) 0.1 % cream | | | | 3/20 | | e | | | | | | 13 | | | + + + +---------+------+------+-------+ | pravastatin | | | 0 | 06/0 | | Activ | | (PRAVACHOL) 80 MG | | | | 5/20 | | e | | tablet | | | | 13 | | | + + + +---------+------+------+-------+ | valproic acid | | | 0 | 04/0 | | Activ | | (DEPAKENE) 250 MG | | | | 2/20 | | e | | capsule | | | | 13 | | | + + + +---------+------+------+-------+ | | Take 1 tablet by | | 0 | | | Activ | | HYDROcodone-acetamin | mouth every 6 hours | | | | | e | | ophen (NORCO) 5-325 | as needed for Pain. | | | | | | | mg per tablet | | | | | | | + + + +---------+------+------+-------+ | ergocalciferol | Take 50,000 capsules | | 0 | | | Activ | | (VITAMIN D-2) 50,000 | by mouth every 7 | | | | | e | | units capsule | days. | | | | | | + + + +---------+------+------+-------+ | divalproex | TAKE TWO TABLETS BY | | 0 | 05/1 | | Activ | | (DEPAKOTE) [address] | MOUTH TWICE DAILY | | | 6/20 | | e | | tablet | | | | 16 | | | + + + +---------+------+------+-------+ | folic acid 1 mg | Take 1 mg by mouth | | 0 | | | Activ | | tablet | daily. | | | | | e | + + + +---------+------+------+-------+ | ibuprofen | Take 100 mg by mouth | | 0 | | | Activ | | (ADVIL,MOTRIN) 100 | every 6 (six) hours | | | | | e | | MG tablet | as needed for | | | | | | | | Fever. | | | | | | + + + +---------+------+------+-------+ | lamoTRIgine | Take 100 mg by mouth | | 0 | | | Activ | | (LAMICTAL) 25 mg | 2 (two) times | | | | | e | | tablet | daily. Take 50 mg in | | | | | | | | morning and 100 mg | | | | | | | | in the evening. | | | | | | + + + +---------+------+------+-------+ | methotrexate 2.5 | Take 6 mg every | | 0 | 08 | | Activ | | mg tablet | | | | 04/17 | | e | | | | | | 16 | | | + + + +---------+------+------+-------+ | Multiple | Take 1 tablet by | | 0 | | | Activ | | Vitamins-Minerals | mouth daily. | | | | | e | | (MULTIVITAMIN WITH | | | | | | | | MINERALS) tablet | | | | | | | + + + +---------+------+------+-------+ | pantoprazole | | | 0 | 10/1 | | Activ | | (PROTONIX) 40 mg | | | | 8/20 | | e | | tablet | | | | 17 | | | + + + +---------+------+------+-------+ | torsemide | Take 20 mg by mouth | | 0 | | | Activ | | (DEMADEX) 20 mg | as needed. 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 | + + + | Rheumatic fever | 11/19/2014 | + + + Family History + + +------+ + | Medical History | Relation | Name | Comments | + + +------+ + | Diabetes, NIDDM | Sister | | | + + +------+ + + +------+--------+ + | Relation | Name | Status | Comments | + +------+--------+ + | Sister | | | | + +------+--------+ + | Sister | [...] | Blood Pressure | 111/63 | 02/24/2017 2:26 PM | | | | | PST | | + + + + + | Pulse | 65 | 02/24/2017 2:26 PM | | | | | PST | | + + + + + | Temperature | 36.4 C (97.6 F) | 02/24/2017 2:26 PM | | | | | PST | | + + + + + | Respiratory Rate | 16 | 02/24/2017 2:26 PM | | | | | PST [...] 108.2 kg (238 lb 8.6 | 02/24/2017 2:26 PM | | | | oz) | PST | | + + + + + | Height | 177.8 cm (5' 10") | 02/24/2017 2:26 PM | | | | | PST | | + + + + + | Body Mass Index | 34.23 | 02/24/2017 2:26 PM | | | | | PST [...] Last 3 Months Insurance + +--------+ +--------+ +---------+--------+ | Payer | Benefi | Subscriber | Effect | Phone | Address | Type | | | t Plan | ID | aubrey | | | | | | / | | Dates | | | | | | Group | | | | | | + +--------+ +--------+ +---------+--------+ | [employer] | [employer]A | [id number] | | [phone] | | Medica | | MEDICAID HMO | HEALTH | | 015-Pr | 1 | | id | | | MDCD | | esent | | | | | | [place] | | | | | | + +--------+ +--------+ +---------+--------+ | [employer] | BROADS | [id number] | | [phone] | | Indemn | | | PIRE | | 013-Pr | 1 | | ity | | | SVCS | | esent | | | | | | WC | | | | | | + +--------+ +--------+ +---------+--------+ + +--------+ +--------+ + + | Guarantor Name | Accoun | Relation to | Date | Phone | Billing Address | | | t Type | Patient | of | | | | | | | | | | + +--------+ +--------+ + + | Daysi Flaherty | Person | Self | [birth year] | | [address] | | | al/Fam | | 1966 | [phone] | [place] | | | [place] | | | [address] (Home) | [address] | + +--------+ +--------+ + + | Daysi Flaherty | Worker | Self | [birth year] | [address] | | [address] | | 1966 | [phone] | [place] [address] | | | | | | 7 (Home) | | + +--------+ +--------+ + + Advance Directives + + + + + | Type | Date Recorded | Patient | Explanation | | | | Roll Contour Grinder | | + + + + + | Power of | | | | | Manager Care | | | | + + + + + | Advance | 08/10/2014 10:15 | | | | Directive | AM | | | + + + + +
--- OUTSIDE RECORDS SUMMARY | ~2019-03-11 | XMS | Encounter Summary ---
Demographics + + + | Address | [address] | | | [place] [address] | + + + | Home Phone | | + + + | Preferred Language | Unknown | + + + | Marital Status | | + + + | Anabaptist Affiliation | ASG | + + + | Race | White | + + + | Ethnic Group | Not or | + + + Author + + + | Author | [facility] | + + + | Organization | [facility] | + + + | Address | Unknown | + + + | Phone | Unavailable | + + + Support + + + + + | Name | Relationship | Address | Phone | + + + + + | Christy Flaherty | ECON | [address] | | | | | [place] | | | | | [address] | | + + + + + Care Team Providers + +------+ + | Care Systems Navigator Name | Role | Phone | + [...] | Procedural Unit at | [facility] [address] [facility] | | | | | [place] [address] | | | | | [address] | [place], [place] | | | | | Mailcode: [id number] | [address] | | | | | [address] | [phone] | | | | | [address] [place], [place] | | | | | | [address] | | | | | | [phone] | | | +--------+ + + + [...] Removal | +--------+ + + + | Periph | 04/09/17; 1120; Tresa Jorge RN; | [...]
--- OUTSIDE RECORDS SUMMARY | ~2019-03-11 | XMS | Encounter Summary ---
Demographics + + + | Address | [address] | | | [place] [address] | + + + | Home Phone [...] [place] | | | | | [address] | | + + + + + Care Team Providers + +------+ + | Care Rod Bending Machine Operator Name | Role | Phone [...] | | | | with complex | [place], [place] | | | | | partial | [address] | [phone] | | | | | seizures, | Phone: | Phone: | | | | | intractable, | [phone] | [phone] | | | | | without | Fax: | Fax: | | | | | status | [phone] | [phone] | | | | | epilepticus | | | | | | | ([facility]) | | | | | [...] for | | 2016 | Visit | 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 [facility] Note Author: Noe Arambula MD Date/Time: 09/05/2015 2:55 PM Requesting Attending: Sylvia Triana MD HPI: Daysi Flaherty is a 50 year old right-handed man who is being seen in [facility] for evaluation of [...] took him t o the hospital in [place]. They did an MRI which was initially [...] referred to his neurologist Dr. Estrada in [place]. He reviewed the MRI and saw a [...] in September 2014 an ID specialist in [facility] determined hkadijah t he had Rheumatic fever which was [...] November 2014. Prior Evaluation: EEG from [facility] in 2014 was normal. [facility] from [facility] in 2014 showed the left mesial [...] drugs Living situation: Lives with his in [place], [place] Marital Status: Education: Some college Work: [...] to light touch. Coordination and Gait: Normal nqeeyb-zida-ogdbxg and hedl-td-yfjz intact. Labs: Lab Results Component Value Date [...] right-handed man who is being seen in [facility] Epilepsy Clinic for evaluation of surgical [...] signed on 09/05/2015 by Noe Arambula MD. Urology Physician Assistant Department of Neurology [facility] documented in this [...] | + + + + + | [facility] | [address] | [place] [address] | | | SERVICES, CORE | [address]OME [...] | | | LABORATORY | | | PALESTINIAN | | | SERVICES, | | | [...] the MDRD equation recommended by the | [facility] | | National Kidney Disease Education Program. Estimated GFR | LABORATORY | | Interpretive Information: <60 mL/min/1.73 sq m | JACINTA, JAMISON | | Chronic Kidney Disease <15 mL/min/1.73 [...] + + + + + | [facility] | [address] | [place] [address] | | | JAMISON WORKMAN | [address] | | | + [...]
--- OUTSIDE RECORDS SUMMARY | ~2019-03-11 | XMS | Encounter Summary ---
Demographics + + + | Address | [address] | | | [place] [address] | + + + | Home Phone | | + + + | Preferred Language | Unknown | + + + | Marital Status | | + + + | Restorationism Affiliation | 1061 | + + + | Race | Unknown | + + + | Ethnic Group | Unknown | + + + Author + + + | Author | [facility] | | | and [place] | + + + | Organization | [facility] | | | [...] [place] | | | | | [address] | | + + + + + | Christy Flaherty | ECON | [address] | | | | | [place] | | | | | [address] | | + + + + + Care Team Providers + +------+ + | Care Line Erector Name | Role | Phone | + +------+ + | Juan Demarco MD | PCP | | + +------+ + Encounter Details +--------+ + + + + | Date | Type | Department | Care Team | Description | +--------+ + + + + | 01/08/ | Hospital | [facility] | Conversion | Rheumatic fever; | | 2014 | Encounter | CENTER CV INTRA OP | Transaction, | Aortic valve | | | | [address] | Provider Unknown | disorder | | | | [place], [place] | [phone] | | | | | [address] | | | | | | [phone] | Jb Mendiola MD | | | | | | [address] | | | | | | [place] [address] | | | | | | [phone] | | | | | | | [...] documented as of this encounter Progress Notes Juan Ramon Wilkersonaction, Provider Unknown - 01/08/2015 10:43 AM PDTFormatting of this note m ight be different from the original. Nurse Progress Note by Bolivar Pemberton RN at 01/08/151042 Author: Bolivar Pemberton RN Service: (none) Author Type: Registered Nurse Filed: 01/08/151046 Date of Service: 01/08/151042 Status: Signed Pick Up And Delivery Driver: Bolivar Pemberton RN (Registered Nurse) Pt tolerated procedure well. Somnolent after sedation - slow to awake but oriented, kye ating fluids and maintaining airway and sats on room air. VS return to pre procedure baseli ne. Discharge instructions given to patient and his - verbalized understanding. Tra nsported out via wheelchair and assisted into vehicle. docume nted in this encounter Plan of Treatment Not on filedocumented as of this encounter Visit Diagnoses + + | Diagnosis | + + | Rheumatic fever Rheumatic fever without mention of heart involvement | + + | Aortic valve disorder Aortic valve disorders | + + documented in this encounter"
--- OUTSIDE RECORDS SUMMARY | ~2019-03-11 | XMS | Encounter Summary ---
Demographics + + + | Address | [address] | | | [place] [address] | + + + | Home Phone | | + + + | Preferred Language | Unknown | + + + | Marital Status | | + + + | Mormon Affiliation | ASG | + + + | Race | White | + + + | Ethnic Group | Not or | + + + Author + + + | Author | [facility] | + + + | Organization | [facility] | + + + | Address | Unknown | + + + | Phone | Unavailable | + + + Support + + + + + | Name | Relationship | Address | Phone | + + + + + | Christy Flaherty | ECON | [address] | | | | | [place] | | | | | [address] | | + + + + + Care Team Providers + +------+ + | Care Acute Coordinator Name | Role | Phone | [...] | | 2018 | | Center at [facility] [address] | [address] | pancreatitis (HCC) | | | | [address] | [address] | | | | | Mailcode: Center | [place], [place] | | | | | for Health and | [address] | | | | | Healing, Building [address] | [phone] | | | | | [place], [place] | | | | | | [address] | | | | | | [phone] | | | +--------+ + + + [...] | | LAB | | | | [place] [address] | | | | | | | [...]
--- OUTSIDE RECORDS SUMMARY | ~2019-03-11 | XMS | Encounter Summary ---
Demographics + + + | Address | [address] | | | [place] [address] | + + + | Home Phone | | + + + | Preferred Language | Unknown | + + + | Marital Status | | + + + | Jainism Affiliation | 1061 | + + + | Race | Unknown | + + + | Ethnic Group | Unknown | + + + Author + + + | Author | [facility] | | | and [place] | + + + | Organization | [facility] | | [...] [place] | | | | | [address] | | + + + + + | Christy Flaherty | ECON | [address] | | | | | [place] | | | | | [address] | | + + + + + Care Team Providers + +------+ + | Care Kier Hand Name | Role | Phone | + +------+ + | Juan Demarco MD | PCP | | + +------+ + Encounter Details +--------+ + + + + | Date | Type | Department | Care Team | Description | +--------+ + + + + | 12/31/ | Orders Only | [facility] | Conversion | | | 2014 | | INFECTIOUS DISEASE | Transaction, | | | | | [address] | Provider Unknown | | | | | [place], [place] | | | | | | [address] | (Fax) | | | | | [phone] | | | +--------+ + + + [...] | CBC WITH MANUAL | Routin | 12/31/2014 | | Results for this | | DIFFERENTIAL | e | 12:00 AM | | procedure are in the | | | | PDT | | results section. | + +--------+ + + + | ANTISTREPTOLYSIN O, | Routin | 12/31/2014 | | Results for this | | QUANT | e | 12:00 AM | | procedure are in the | | | | PDT | | results section. | + +--------+ + + + | SEDIMENTATION RATE, | Routin | 12/31/2014 | | Results for this | | AUTOMATED | e | 12:00 AM | | procedure are in the | | | | PDT | | results section. | + +--------+ + + + | C-REACTIVE PROTEIN | Routin | 12/31/2014 | | Results for this | | | e | 12:00 AM | | procedure are in the | | | | PDT | | results section. | + +--------+ + + + | COMPREHENSIVE | Routin | 12/31/2014 | | Results for this | | METABOLIC PANEL | e | 12:00 AM | | procedure are in the | | | | PDT | | results section. | + +--------+ + + + documented in this encounter Results Antistreptolysin O, Quant (12/31/2014 12:00 AM PDT) + +-------+ + + + | Component | Value | Ref Range | Performed | Pathologist | | | | | At | Signature | + +-------+ + + + | Anti | 423 | | EXTERNAL | | | Streptolysi [...] + +---------+ + + Sedimentation rate, automated (12/31/2014 12:00 AM PDT) + +-------+ + + [...] +---------+ + + CBC with Manual Differential (12/31/2014 12:00 AM PDT) + +-------+ + + + | Component | Value | Ref Range | Performed | Pathologist | | | | | At | Signature | + +-------+ + + + | WBC | 7.7 | 10 | EXTERNAL | | | | | | LAB | | + +-------+ + + + | RED CELL | 5.29 | 10 | EXTERNAL | | | COUNT | | | LAB | | + +-------+ + + + | Hgb | 16.2 | g/dL | EXTERNAL | | | | | | LAB | | + +-------+ + + + | Hematocrit, | 48.3 | % | EXTERNAL | | | POC | | | LAB | | + +-------+ + + + | MCV | 91.4 | fL | EXTERNAL | | | | | | LAB | | + +-------+ + + + | MCH | 31 | pg | EXTERNAL | | | | | | LAB | | + +-------+ + + + | MCHC | 34 | g/dL | EXTERNAL | | | | | | LAB | | + +-------+ + + + | RDW-CV | 12.5 | % | EXTERNAL | | | | | | LAB | | + +-------+ + + + | Platelet | 168 | K/ L | EXTERNAL | | | Count | | | LAB | | | Plasma | | | | | + +-------+ + + + | MPV | | fL | EXTERNAL | | | | | | LAB | | + +-------+ + + + | % Segmented | 64.1 | % | EXTERNAL | | | | | | LAB | | | Neutrophils | | | | | + +-------+ + + + | % | 30.2 | % | EXTERNAL | | | Lymphocytes | | | LAB | | + +-------+ + + + | % Monocytes | 2.6 | % | EXTERNAL | | | | | | LAB | | + +-------+ + + + | % | 2.0 | % | EXTERNAL | | | Eosinophils | | | LAB | | + +-------+ + + + | % Basophils | 1.1 | % | EXTERNAL | | | [...] | + +---------+ + + C-Reactive Protein (12/31/2014 12:00 AM PDT) + + + + [...] + +---------+ + + Comprehensive Metabolic Panel (12/31/2014 12:00 AM PDT) + +-------+ + + + | Component | Value | Ref Range | Performed | Pathologist | | | | | At | Signature | + +-------+ + + + | Glucose, | 125 | mg/dL | EXTERNAL | | | Fasting | | | LAB | | + +-------+ + + + | BUN | 14 | mg/dL | EXTERNAL | | | | | | LAB | | + +-------+ + + + | Creatinine | 0.84 | mg/dL | EXTERNAL | | | | | | LAB | | + +-------+ + + + | BUN/Creatin | 16.7 | | EXTERNAL | | | ine Ratio | | | LAB | | + +-------+ + + + | Calcium | 8.9 | mg/dL | EXTERNAL | | | | | | LAB | | + +-------+ + + + | Protein, | 6.1 | g/dL | EXTERNAL | | | Total | | | LAB | | + +-------+ + + + | Albumin | 3.9 | | EXTERNAL | | | | | | LAB | | + +-------+ + + + | Globulin | 2.2 | | EXTERNAL | | | | | | LAB | | + +-------+ + + + | A/G Ratio | 1.8 | | EXTERNAL | | | | | | LAB | | + +-------+ + + + | Bilirubin | 0.3 | mg/dL | EXTERNAL | | | [...] +-------+ + + + | Na | 140 | mmol/L | EXTERNAL | | | | | | LAB | | + +-------+ + + + | K | 4.2 | mmol/L | EXTERNAL | | | | | | LAB | | + +-------+ + + + | Cl | 106 | mmol/L | EXTERNAL | | | | | | LAB | | + +-------+ + + + | CO2 | 28 | mmol/L | EXTERNAL | | | | | | LAB | | + +-------+ + + + | Anion Gap | 10.2 | mmol/L | EXTERNAL | | | | | | LAB | | + +-------+ + + + | Estimated | 97 | mg/dL | EXTERNAL | | | [...]
--- OUTSIDE RECORDS SUMMARY | ~2019-03-11 | XMS | Encounter Summary ---
Demographics + + + | Address | [address] | | | [place] [address] | + + + | Home Phone [...] [place] | | | | | [address] | | + + + + + Care Team Providers + +------+ + | Care Market Asset Protection Manager Name | Role | Phone | [...] Authorized | | Gastroenterol | Diagnoses | Liz, | Jarek, | | | | ogy | Epigastric | Sky Jiang MD | MD Taiwo | | | | | pain | [place] | [address] | | | | | Acquired | SURGICAL | [facility] | | | | | absence of | CLINIC [address] [place], | | | | | other | [address] | [place] | | | | | specified | AVE | [address] | | | | | parts of | [place], | Phone: | | | | | digestive | [place] [address] | [phone] | | | | | tract | Phone: | Fax: | | | | | | [phone] | [phone] | | | | | | Fax: | | | | | | | [phone] | | + +--------+ + + + + Encounter Details +--------+---------+ + + + | Date | Type | Department | Care Team | Description | +--------+---------+ + + + | 02/08/ | Office | Digestive Health | Taiwo Tilley, | Idiopathic chronic | | 2019 | Visit | Center at [facility] [address] | MD [address] | pancreatitis (HCC) | | | | [address] | [address] | (Primary Dx) | | | | Mailcode: Center | [place], [place] | | | | | [facility] and | [address] | | | | | [facility] 2 | [phone] | | | | | [place], [place] | | | | | | [address] | | | | | | [phone] | | | +--------+---------+ + + + [...] and test results either by telephone or [employer]. The fastest w ay to get a message to our staff is through [employer]iva[employer]. Please register and activate [employer] for access to your medical records, results, requests for refills and the ability to have non-urgent communication with our team. [email or web address] If you have questions or need assistance please call [employer] Pictorama [phone]. To schedule or cancel an appointment, please call [employer] Phone Number Outpatient Clinics 8:00am 4:30 pm [phone] Tilley ordered imaging at [facility] please call to schedule an appointment Opens Closes Phone Number Radiology Scheduling 8:00 am 4:30 pm [phone] For routine clinical questions and medication refills during regular business hours (8:00 a m 4:30 pm) please call: RN Coordinator Esther Adam RN Decorative Engraver Apprentice Georgina Huerta CMA For URGENT issues during regular business hours please alert the phone staff that your call is urgent. For after-hours urgent issues, page the adult GI provider email operations manager at [phone]. For EMERGENCIES please go to the nearest [...] to call our clinic with any questions. [phone] documented in this encounter Progress Notes Taiwo Tilley MD - 02/08/2019 2:25 PM PSTFormatting of this note might be different fro m the original. [facility] Patient Name: Daysi Flaherty MR#: [id number] : 1965 HPI: Daysi Flaherty is a [...] to work 3-4 days a month. 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 He describes [...] 6 week with no resolution. He has In[place] 1 stools. He is non-smoker (ex-smoker) and [...] Amitiza [Lubiprostone] Cough Meloxicam Diarrhea Bowel incontinence Xcvctuy-Yuk-Tir Reductase Inhibitors Seizures Increased frequency of seizures, though pts mentions, pt had an infection during the time the pt was started on a statin and this may have been the cause also. Provider ojshua t chaceed a statin again. Review of Systems Constitutional: [...] pancreatitis: Suspect recurrent acute pancreatitis evolving into chronic condition nurse kori pancreatitis. EUS with FNA was consistent [...] Taiwo Tilley MD [facility] 6TH FLOOR [address] Mailcode: [facility] [place] [address] [phone] signed by Taiwo Tilley MD at 02/08/2019 5:56 PM PSTdocumente d in this encounter Plan of Treatment Not on filedocumented as of this encounter Visit Diagnoses + + | Diagnosis | + + | Idiopathic chronic pancreatitis (HCC) - Primary | + + documented in this encounter
--- OUTSIDE RECORDS SUMMARY | ~2019-03-11 | XMS | Encounter Summary ---
Demographics + + + | Address | [address] | | | [place] [address] | + + + | Home Phone | | + + + | Preferred Language | Unknown | + + + | Marital Status | | + + + | Orthodox Affiliation | 1061 | + + + | Race | Unknown | + + + | Ethnic Group | Unknown | + + + Author + + + | Author | [facility] | | | and [place] | + + + | Organization | [facility] | | | and [...] [place] | | | | | [address] | | + + + + + | Christy Flaherty | ECON | [address] | | | | | [place] | | | | | [address] | | + + + + + Care Team Providers + +------+ + | Care K 9 Police Officer Name | Role | Phone | + +------+ + | Juan Demarco MD | PCP | | + +------+ + Encounter Details +--------+ + + + + | Date | Type | Department | Care Team | Description | +--------+ + + + + | 04/08/ | Orders Only | [facility] | Sol Fonseca, | | | 2016 | | CARDIOLOGY BRITNEY | [address] | | | | | [address] | [address] [place], [place] | | | | | [place], [place] | [address] | | | | | [address] | [phone] | | | | | [phone] | | | +--------+ + + + [...]
--- OUTSIDE RECORDS SUMMARY | ~2019-03-11 | XMS | Encounter Summary ---
Demographics + + + | Address | [address] | | | [place] [address] | + + + | Home Phone | | + + + | Preferred Language | Unknown | + + + | Marital Status | | + + + | Christianity Affiliation | ASG | + + + [...] [place] | | | | | [address] | | + + + + + Care Team Providers + +------+ + | Care Cereal Chemist Name | Role | Phone | + +------+ + | Filippo Chen DO | PCP | | + +------+ + Encounter Details +--------+ + + + + | Date | Type | Department | Care Team | Description | +--------+ + + + + | 12/17/ | Documentati | Neurology at | Amador Mayorga, | | | 2016 | on | [facility] & | EMAIL PRODUCTION SPECIALIST [address] | | | | | Healing [address] | [address] | | | | | [address] Mailcode: | [place], [place] | | | | | [facility] | [address] | | | | | Health and Healing, | [phone] | | | | | [facility] | | | | | | Floor [place], [place] | | | | | | [address] | | | | | | [phone] | | | +--------+ + + + [...]
--- OUTSIDE RECORDS SUMMARY | ~2019-03-11 | XMS | Encounter Summary ---
Demographics + + + | Address | [address] | | | [place] [address] | + + + | Home Phone | | + + + | Preferred Language | Unknown | + + + | Marital Status | | + + + | Anabaptism Affiliation | 1061 | + + + [...] [place] | | | | | [address] | | + + + + + | Christy Flaherty | ECON | [address] | | | | | [place] | | | | | [address] | | + + + + + Care Team Providers + +------+ + | Care It Program Engagement Director Name | Role | Phone | + +------+ + | Juan Demarco MD | PCP | | + +------+ + Encounter Details +--------+ + + + + | Date | Type | Department | Care Team | Description | +--------+ + + + + | 01/28/ | Orders Only | [facility] | Conversion | | | 2014 | | INFECTIOUS DISEASE | Transaction, | | | | | [address] | Provider Unknown | | | | | [place], [place] | | | | | | [address] | (Fax) | | | | | [phone] | | | +--------+ + + + [...]
--- OUTSIDE RECORDS SUMMARY | ~2019-03-11 | XMS | Encounter Summary ---
Demographics + + + | Address | [address] | | | [place] [address] | + + + | Home Phone [...] [place] | | | | | [address] | | + + + + + Care Team Providers + +------+ + | Care Emotionally Impaired Teacher Name | Role | Phone | [...] | | | | | pancreatitis | [facility] | [facility] | | | | | (HCC) | Rd | [address] [place], | | | | | Procedures | [place], [place] | [place] | | | | | CONSULT TO | [address] | [address] | | | | | SURGERY - | Phone: | Phone: | | | | | GENERAL | [phone] | [phone] | | | | | | Fax: | Fax: | | | | | | [phone] | [phone] | + +--------+ + + + + Encounter Details +--------+---------+ + + + | Date | Type | Department | Care Team | Description | +--------+---------+ + + + | 02/08/ | Office | Digestive Health | Duy Kat, | Idiopathic chronic | | 2019 | Visit | Center at [facility] [address] | MD [address] | pancreatitis (HCC) | | | | [address] | [facility] [address] | (Primary Dx) | | | | Mailcode: [place] | [place], [place] | | | | | [facility] and | [address] | | | | | [facility] 2 | [phone] | | | | | [place], [place] | | | | | | [address] | | | | | | [phone] | | | +--------+---------+ + + + [...] o work 3-4 days a month. 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 He describes his stools as watery diarrhea [...] Amitiza [Lubiprostone] Cough Meloxicam Diarrhea Bowel incontinence Eqlscxe-Cbd-Dsb Reductase Inhibitors Seizures Increased frequency of seizures, [...] oral tablet lamoTRIgine 25 mg oral tablet rczaav-zcmdrcsc-elcxyin (VIOKACE) 20,880-78,300- 78,300 unit oral tablet methotrexate [...] Bradley Ward MD General Surgery PGY1 Pager #[phone] Associated attestation - Duy Kat MD - 02/12/2019 5:48 PM PST I saw the patient and reviewed and verified all information documented by the medical stud ent and resident, and made modifications to such information, when appropriate Duy Kat M.D. [facility] [employer] ([facility]) Professor and Vice-Loan Manager of Surgery The [facility] for Pancreatic Disease Research [facility] [place] Cell phone: [phone] / [facility] provider's line [phone]. email: [email or web address] documented in this encounter Plan of Treatment Not on filedocumented as of this encounter Visit Diagnoses + + | Diagnosis | + + | Idiopathic chronic pancreatitis (HCC) - Primary | + + documented in this encounter
--- OUTSIDE RECORDS SUMMARY | ~2019-03-11 | XMS | Encounter Summary ---
Demographics + + + | Address | [address] | | | [place] [address] | + + + | Home Phone [...] [place] | | | | | [address] | | + + + + + Care Team Providers + +------+ + | Care Operations Representative Name | Role | Phone | [...] Additional | | 2016 | Encounter | [facility] & | | Medications | | | | Healing [address] | | | | | | [address] Mailcode: | | | | | | [facility] | | | | | | Health and Healing, | | | | | | Building | | | | | | Floor [place], [place] | | | | | | [address] | | | | | | [phone] | | | +--------+ + + + [...]
--- OUTSIDE RECORDS SUMMARY | ~2019-03-11 | XMS | Encounter Summary ---
Demographics + + + | Address | [address] | | | [place] [address] | + + + | Home Phone | | + + + | Preferred Language | Unknown | + + + | Marital Status | | + + + | Jehovah'S Witness Affiliation | 1061 | + + + | Race | Unknown | + + + | Ethnic Group | Unknown | + + + Author + + + | Author | [facility] | | | and [place] | + + + | Organization | [facility] | | | [...] [place] | | | | | [address] | | + + + + + | Christy Flaherty | ECON | [address] | | | | | [place] | | | | | [address] | | + + + + + Care Team Providers + +------+ + | Care Senior Industrial Engineer Name | Role | Phone | + +------+ + | Juan Demarco MD | PCP | | + +------+ + Encounter Details +--------+ + + + + | Date | Type | Department | Care Team | Description | +--------+ + + + + | 12/10/ | Orders Only | [facility] | Conversion | | | 2014 | | INFECTIOUS DISEASE | Transaction, | | | | | [address] | Provider Unknown | | | | | [place], [place] | | | | | | [address] | (Fax) | | | | | [phone] | | | +--------+ + + + [...]
--- OUTSIDE RECORDS SUMMARY | ~2019-03-11 | XMS | Encounter Summary ---
Demographics + + + | Address | [address] | | | [place] [address] | + + + | Home Phone [...] + + + | Author | [facility] | + + + | Organization | [facility] | + + + | Address | Unknown | + + + | Phone | Unavailable | + + + Support + + + + + | Name | Relationship | Address | Phone | + + + + + | Christy Flaherty | ECON | [address] | | | | | [place] | | | | | [address] | | + + + + + Care Team Providers + +------+ + | Care School Patrol Name | Role | Phone | + [...] 03/26/ | MyChart | Neurology at | Butch Dixon | RE: Seizures and | | 2016 | Encounter | [facility] & | G, DO [address] | Medications | | | | Healing [address] | [address] | | | | | [address] Mailcode: | [place], [place] | | | | | [facility] | [address] | | | | | Health and Healing, | [phone] | | | | | [facility] | | | | | | Floor [place], [place] | | | | | | [address] | | | | | | [phone] | | | +--------+ + + + [...]
--- OUTSIDE RECORDS SUMMARY | ~2019-03-11 | XMS | Encounter Summary ---
Demographics + + + | Address | [address] | | | [place] [address] | + + + | Home Phone [...] [place] | | | | | [address] | | + + + + + Care Team Providers + +------+ + | Care Software Development Specialist Name | Role | Phone | [...] | Question | | 2019 | | [facility] at [facility] [address] | MD [address] | | | | | [address] | [address] | | | | | Mailcode: Center | [place], [place] | | | | | [facility] and | [address] | | | | | [facility] 2 | [phone] | | | | | [place], [place] | | | | | | [address] | | | | | | [phone] | | | +--------+ + + + [...]
--- OUTSIDE RECORDS SUMMARY | ~2019-03-11 | XMS | Encounter Summary ---
Demographics + + + | Address | [address] | | | [place] [address] | + + + | Home Phone [...] [place] | | | | | [address] | | + + + + + | Christy Flaherty | ECON | [address] | | | | | [place] | | | | | [address] | | + + + + + Care Team Providers + +------+ + | Care Senior Software Developer Name | Role | Phone | + +------+ + | Juan Demarco MD | PCP | | + +------+ + Encounter Details +--------+ + + + + | Date | Type | Department | Care Team | Description | +--------+ + + + + | 05/15/ | Orders Only | [facility] | Conversion | | | 2015 | | INFECTIOUS DISEASE | Transaction, | | | | | [address] | Provider Unknown | | | | | [place], [place] | | | | | | [address] | (Fax) | | | | | [phone] | | | +--------+ + + + [...]
--- OUTSIDE RECORDS SUMMARY | ~2019-03-11 | XMS | Encounter Summary ---
Demographics + + + | Address | [address] | | | [place] [address] | + + + | Home Phone [...] [place] | | | | | [address] | | + + + + + | Christy Flaherty | ECON | [address] | | | | | [place] | | | | | [address] | | + + + + + Care Team Providers + +------+ + | Care Hemodialysis Patient Care Specialist Name | Role | Phone | + +------+ + | Juan Demarco MD | PCP | | + +------+ + Encounter Details +--------+ + + + + | Date | Type | Department | Care Team | Description | +--------+ + + + + | 12/19/ | Hospital | [facility] | Conversion | | | 2015 | [facility] | [facility] | Transaction, | | | | | OUTPATIENT | Provider Unknown | | | | | PROCEDURES [address] | | | | [address] | (Fax) | | | | | [place], [place] | | | | | | [address] | | | | | | [phone] | | | +--------+ + + + [...]
--- OUTSIDE RECORDS SUMMARY | ~2019-03-11 | XMS | Encounter Summary ---
Demographics + + + | Address | [address] | | | [place] [address] | + + + | Home Phone | | + + + | Preferred Language | Unknown | + + + | Marital Status | | + + + | Restorationist Affiliation | 1061 | + + + [...] [place] | | | | | [address] | | + + + + + | Christy Flaherty | ECON | [address] | | | | | [place] | | | | | [address] | | + + + + + Care Team Providers + +------+ + | Care Geriatric Nurse Practitioner Name | Role | Phone | + +------+ + PCP | Unavailable | + +------+ + Encounter Details +--------+ + + + + | Date | Type | Department | Care Team | Description | +--------+ + + + + | 02/09/ | Hospital | [facility] | | | | 2003 | Encounter | [facility] | | | | | | CENTER [address] | | | | | | [place] | | | | | | [address] | | | | | | [phone] | | | +--------+ + + + [...]
--- OUTSIDE RECORDS SUMMARY | ~2019-03-11 | XMS | Encounter Summary ---
Demographics + + + | Address | [address] | | | [place] [address] | + + + | Home Phone [...] [place] | | | | | [address] | | + + + + + Care Team Providers + +------+ + | Care Chief Information Security Officer Name | Role | Phone | + +------+ + | Jarvis Willard MD | PCP | | + +------+ + Encounter Details +--------+ + + + + | Date | Type | Department | Care Team | Description | +--------+ + + + + | 04/27/ | Documentati | LAB CORE [address] | Taiwo T[place]ley, | | | 2018 | on | [address] | [address] | | | | | [place], [place] | [address] | | | | | [address] | [place], [place] | | | | | [phone] | [address] | | | | | | [phone] | | | | | | | [...]
--- OUTSIDE RECORDS SUMMARY | ~2019-03-11 | XMS | Encounter Summary ---
Demographics + + + | Address | [address] | | | [place] [address] | + + + | Home Phone [...] [place] | | | | | [address] | | + + + + + Care Team Providers + +------+ + | Care Lens Inserter Name | Role | Phone | + +------+ + | Jarvis Willard MD | PCP | | + +------+ + Reason for Visit + + + | Reason | Comments | + + + | Radiology Order | | + + + Encounter Details +--------+ + + + + | Date | Type | Department | Care Team | Description | +--------+ + + + + | 02/20/ | Telephone | Digestive Health | Duy Kat, | Radiology Order | | 2019 | | Center at [facility] [address] | [address] | | | | | [address] | [address] | | | | | Mailcode: Center | [place], [place] | | | | | [facility] and | [address] | | | | | [facility] 2 | [phone] | | | | | [place], [place] | | | | | | [address] | | | | | | [phone] | | | +--------+ + + + [...]
--- OUTSIDE RECORDS SUMMARY | ~2019-03-11 | XMS | Encounter Summary ---
Demographics + + + | Address | [address] | | | [place] [address] | + + + | Home Phone [...] [place] | | | | | [address] | | + + + + + Care Team Providers + +------+ + | Care Casket Liner Name | Role | Phone | + [...] Medical Records | | 2019 | | Center at [facility] [address] | [address] | Review | | | | [address] | [address] | | | | | Mailcode: Center | [place], [place] | | | | | for Health and | [address] | | | | | [facility] 2 | [phone] | | | | | [place], [place] | | | | | | [address] | | | | | | [phone] | | | +--------+ + + + [...]
--- OUTSIDE RECORDS SUMMARY | ~2019-03-11 | XMS | Encounter Summary ---
Demographics + + + | Address | [address] | | | [place] [address] | + + + | Home Phone | | + + + | Preferred Language | Unknown | + + + | Marital Status | | + + + | Hoahaoism Affiliation | 1061 | + + + | Race | Unknown | + + + | Ethnic Group | Unknown | + + + Author + + + | Author | [facility] | | | and [place] | + + + | Organization | [facility] | | [...] [place] | | | | | [address] | | + + + + + | Christy Grande | ECON | [address] | | | | | [place] | | | | | [address] | | + + + + + Care Team Providers + +------+ + | Care Inspector Aide Name | Role | Phone | + [...] | | | | [address] | [place] [address] | | | | | [place], [place] | [phone] | | | | | [address] | | | | | | [phone] | | | +--------+ + + + [...] TR maxP.42 mmHg TR Vmax: 2.14 m/s Student Accounts Coordinator: | | | DH Authenticated by: Jb Mendiola MD, FACC, FACP, FASNC Report | | | Date/Time: -- | | + + + + + | Procedure Note | + + | Kj Rad Conversion - 11/18/2018 11:06 AM PDT Patient Name: Jen GRANDE of | | : 1965 Performing Physician: Jb Mendiola MD, [facility], | | FACP, | | FASNC [...] cmLVIDd: 4.72 cmLVPWd: 0.95 cmLVOT Area: 3.61 [id number] Diam: 2.14 cm%FS: | | 34.35 %EF(Teich): [...] (A-L): 19.71 | | ml/m2LAAs A2C: 16.72 by8UGMGI A-L A2C: 48.44 mlLALs A2C: 4.90 cmLAAs A4C: 15.56 | | tp9PYSNX A-L A4C: 42.18 mlLALs A4C: 4.87 cmRAAs: 13.91 en7DFOIW A-L: 36.69 | | mlRAESV MOD: 36.63 mlRALs: 4.47 cmAo Diam: 3.87 cmLA Diam: 4.22 cmLA/Ao: | | 1.08AV maxP.50 mmHgAV meanP.02 mmHgAV Vmax: 1.96 m/Stormy Vmean: 1.40 | | m/Stormy VTI: 37.37 cmAVA Vmax: 1.63 cm2AVA (VTI): 1.93 zg7FHEC (Vmax): 0.00 | | cm2/m2AVAI (VTI): 0.00 cm2/m2LVOT maxP.19 mmHgLVOT meanP.89 mmHgLVSI Dopp: | | 31.44 ml/m2LVSV Dopp: 72.32 mlLVOT Vmax: 0.89 m/sLVOT Vmean: 0.64 m/sLVOT VTI: | | 20.03 cmMV A George: 0.47 m/sMV DecT: 222.02 msMV E George: 0.56 m/sMV E/A Ratio: | | 1.19MV PHT: 64.38 msMVA By PHT: 3.41 xd0Owsmlt e': 0.07 m/sSeptal E/e': | | 7.38Lateral e': 0.10 m/sLateral E/e': 5.45RAP: 5 mmHgRVSP: 23.42 mmHgTR maxPG: | | 18.42 mmHgTR Vmax: 2.14 m/s Student Accounts Coordinator: DHAuthenticated by: Jb Mendiola MD, FACC, | [...] |TR Vmax: 2.14 m/s | | | |Student Accounts Coordinator: | |Authenticated by: Jb Mendiola MD, FACC, [...]
--- OUTSIDE RECORDS SUMMARY | ~2019-03-11 | XMS | Encounter Summary ---
Demographics + + + | Address | [address] | | | [place] [address] | + + + | Home Phone | | + + + | Preferred Language | Unknown | + + + | Marital Status | | + + + | Zoroastrianism Affiliation | ASG | + + + | Race | White | + + + | Ethnic Group | Not or | + + + Author + + + | Author | [facility] | + + + | Organization | [facility] | + + + | Address | Unknown | + + + | Phone | Unavailable | + + + Support + + + + + | Name | Relationship | Address | Phone | + + + + + | Christy Flaherty | ECON | [address] | | | | | [place] | | | | | [address] | | + + + + + Care Team Providers + +------+ + | Care Simulation Educator Name | Role | Phone | + [...] (Epilepsy | | 2016 | on | [facility] & | [address] | monitoring unit | | | | Healing [address] | [place], [place] | discharge letter) | | | | [address] Mailcode: | [address] | | | | | [facility] | [phone] | | | | | Health and [facility], | | | | | | [facility] | | | | | | [place], [place] | | | | | | [address] | | | | | | [phone] | | | +--------+ + + + [...]
--- OUTSIDE RECORDS SUMMARY | ~2019-03-11 | XMS | Encounter Summary ---
Demographics + + + | Address | [address] | | | [place] [address] | + + + | Home Phone [...] [place] | | | | | [address] | | + + + + + Care Team Providers + +------+ + | Care Hoop Maker Helper Machine Name | Role | Phone | + +------+ + | Jarvis Willard MD | PCP | | + +------+ + Encounter Details +--------+------+ + + + | Date | Type | Department | Care Team | Description | +--------+------+ + + + | 02/08/ | Lab | Laboratory at [facility] | | Idiopathic chronic | | 2019 | | [address] | | pancreatitis (HCC) | | | | [place], [place] | | | | | | [address] | | | | | | [phone] | | | +--------+------+ + + + [...] | | | | | | by [employer],[address] | | | | | | Chanelle Dean [facility],[place] | | | | | | [address] | | | | | | [phone].VGTel. | | | | | | Rehan [...] [facility] | [address] | [place], [place] | | | UNIV PTH - INTFC | | [address] | | + + + + + [...] | + + + + + | [facility] | [address] | [place] [address] | | | SERVICES, [place] FOR | | | | | HEALTH [...] | REFERENCE | | | | [place] [address] | | LAB | | | | [phone] | | | | | | | | | | | | [employer] | | | | | | | [...] | + + + + + | [facility] | | | [...] | [facility] | | considered for monitoring nursing home glycemic control in patients with: | LABORATORY [...] [facility] | [address] | [place] [address] | | | SERVICES, SPECIAL | PARK [...] | | | this test in the [employer] | | | | | | Laboratory Test | | | | | | Directory | | | | | | ([employer]).Performed | | | | | | by [employer],[address] | | | | | | Chanelle Dean, [facility],[place] | | | | | | [address] | | | | | | [phone].VGTel. | | | | | | [facility], Rehan Paris MD, | | | | [...] [facility] | [address] | [place], [place] | | | UNIV PTH - INTFC | | [address] | | + + + + + [...] [facility] | [address] | [place] [address] | | | SERVICES, CORE | PARK [...] [facility] | | | (CORKY GENOVEVA) | [facility],[address] | | REG UNIV | | | SERUM | Chanelle Dean [facility],[place] | | PTH - INTFC | | | | [address] | | | | | | [phone].[employer]. | | | | | | Rehan [...] B: | | | | | | [employer]/CS | | | | + + + + + + + + | Specimen | + + | Blood - Blood | | (substance) | + + + + + + + | Performing | Address | City/State/Zipcode | Phone Number | | Organization | | | | + + + + + | [facility] | [address] | [place], [place] | | | UNIV PTH - INTFC | | [address] | | + + + + + [...] | | | | | determined by [facility] | | | | | | Laboratories. See | | | | | | Compliance Statement B: | | | | | | [employer]/CSPerformed | | | | | | by [employer],[address] | | | | | | [facility],[place] | | | | | | [address] | | | | | | [phone].VGTel. | | | | | | [employer], Rehan Paris MD, | | | | [...] [facility] | [address] | [place], [place] | | | UNIV PTH - INTFC | | [address] | | + + + + + [...] | + + + + + | [facility] | [address] | [place] [address] | | | JAMISON WORKMAN | JEROME [...] | + + + + + | [facility] | [address] | [place] [address] | | | SERVICES, CORE | JEROME [...] | + + + + + | [facility] | [address] [facility] | [place] [address] | | | SERVICES, CORE | JEROME [...] INTFC | | | | determined by [facility] | | | | | | Laboratories. See | | | | | | Compliance Statement B: | | | | | | [employer]/CSPerformed | | | | | | by [employer],[address] | | | | | | [facility] | | | | | | [address] | | | | | | [phone].VGTel. | | | | | | SUB ONE TECHNOLOGYRehan MD, | | | | | | [...] [facility] | [address] | [place], [place] | | | UNIV PTH - INTFC | | [address] | | + + + + + [...] | | | | | determined by [facility] | | | | | | Laboratories. See | | | | | | Compliance Statement B: | | | | | | [employer]/CSPerformed | | | | | | by [employer],[address] | | | | | | [facility],[place] | | | | | | [address] | | | | | | [phone].VGTel. | | | | | | Rehan [...] [facility] | [address] | [place], [place] | | | UNIV PTH - INTFC | | [address] | | + + + + + [...] | + + + + + | [facility] | [address] | [place] [address] | | | JACINTA, JAMISON | PARK [...] [facility] | [address] | [place] [address] | | | SERVICES, CORE | PARK [...] | + + + + + | [facility] | [address] | [place] [address] | | | SERVICES, CORE | JEROME [...] + | [facility] - | [address] | [place] [address] | | | [place] | | | [...] | | | LABORATORY | | | PU[address] | | | SERVICES, | | [...] | + + + + + | [facility] [employer] | [address] | [place] [address] | | | SERVICES, [facility] | | | | | HEALTH + HEALING | | | | + + + + + documented in this encounter Visit Diagnoses + + | Diagnosis | + + | Idiopathic chronic pancreatitis (HCC) | + + documented in this encounter"
--- OUTSIDE RECORDS SUMMARY | ~2019-03-11 | XMS | Encounter Summary ---
Demographics + + + | Address | [address] | | | [place] [address] | + + + | Home Phone [...] [place] | | | | | [address] | | + + + + + Care Team Providers + +------+ + | Care Interlocking And Signal Mechanic Name | Role | Phone | [...] Closed | | Radiology | Diagnoses | Shey | Rad Ct Scan | | | | | 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 | Ch[address]1 [address] | | | | | chronic | [address] | [address] | | | | | pancreatitis | [facility] | Mailcode: | | | | | (HCC) | Rd | [facility] | | | | | Procedures | [place], [place] | for Health | | | | | [place] | [address] | and Healing, | | | | | MULTIPHASE | Phone: | Building 1, | | | | | PANCREAS AND | [phone] | 3rd Floor | | | | | PELVIS [address] | Fax: | [place], [place] | | | | | CONTRAST | [phone] | [address] | | | | | [address] [place] | | Phone: | | | | | ABD&PELV 1+ | | [phone] | | | | | SECTION/REGN | | Fax: | | | | | S | | [phone] | +--------+--------+ + + + + Reason [...] | | | | | pancreatitis | [facility] | Mailcode: | | | | | (HCC) | Rd | [facility] | | | | | Procedures | [place], [place] | for Health | | | | | [place] | [address] | and Healing, | | | | | MULTIPHASE | Phone: | [address], | | | | | PANCREAS AND | [phone] | 3rd Floor | | | | | PELVIS [address] IV | Fax: | [place], [place] | | | | | CONTRAST | [phone] | [address] | | | | | [address] | | Phone: | | | | | ABD&PELV 1+ | | [phone] | | | | | SECTION/REGN | | Fax: | | | | | S | | [phone] | +--------+--------+ + + + + Encounter Details +--------+ + + + + | Date | Type | Department | Care Team | Description | +--------+ + + + + | 02/20/ | Hospital | Diagnostic Imaging | Duy Kat, | | | 2019 | Encounter | Services at [facility] | [address] | | | | | [address] | [address] | | | | | [address]ree [address] Mailcode: | [place], [place] | | | | | [address] [facility] | [address] | | | | | [place], [place] | [phone] | | | | | [address] | | | | | | [phone] | | | +--------+ + + + [...] + +---------+ + + | | Take 3 tablets by | 330 | 3 | 02/09/20 | | | castuf-jspxeroh-orrk | mouth with meals and | tablet | | 19 | | | ase (VIOKACE) | 1 tablets by mouth | | | | | | 20,880-78,300- | with snacks. | | | | | | 78,300 [...] + + + +---------+ + + | omeprazole 40 mg | Take 1 capsule by | 90 | 3 | 02/09/20 | | | oral capsule,delayed | mouth once daily. | capsule | | 19 | | | release(DR/EC) | Administer 30 to 60 | | | | | | | minutes before meals | | | | | + + [...] + + + +---------+ + + | pregabalin 75 mg | Take 1 capsule by | 60 | 1 | 02/09/20 | | | oral capsule | mouth two times | capsule | | 19 | | | | daily. Max: 600 | | | | | | | mg/day | | | | | + + + +---------+ + + | senna-docusate | Take 1 each by mouth | | 0 | | | | 4.3-25 oral tablet | once daily. | | | | | + + + +---------+ + + | Vitamin A-Vitamin | Take 1 tablet by | | 0 | 02/09/20 | | | C-Vit E-Se | mouth once daily. | | | 19 | | | (ANTIOXIDANT | | | | | | | A/C/E/SELENIUM) oral | [...] + + + | CT MULTIPHASE | Urgent | 02/20/2019 | Idiopathic chronic | Results for this | | PANCREAS AND PELVIS | | 3:35 PM | pancreatitis (HCC) | procedure are in the | | W IV CONTRAST | | PST | | results section. [...] (OMNIPAQUE) 350 mg | IV Push | 02/21/20 | 125 mL | | | | iodine/mL injection 100 mL 100 | | 19 3:37 | | | | | mL, intravenous, ONCE, 1 dose, | | PM PST | | | | | 02/20/19 at 1615 | | | | | | + +---------+ +--------+------+------+ +---+---+ | | | +---+---+ + +-------+ +------+---+---+ | ondansetron (ZOFRAN) tablet 4 | Given | 02/21/20 | 4 mg | | | | mg 4 mg, oral, ONCE, 1 dose, Mon | | 19 2:10 | | | | | 02/20/19 at 1445 | | PM PST | | | | + +-------+ +------+---+---+ +---+---+ | | | +---+---+ documented in this encounter"
--- OUTSIDE RECORDS SUMMARY | ~2019-03-11 | XMS | Encounter Summary ---
Demographics + + + | Address | [address] | | | [place] [address] | + + + | Home Phone | | + + + | Preferred Language | Unknown | + + + | Marital Status | | + + + | Restorationism Affiliation | ASG | + + + [...] [place] | | | | | [address] | | + + + + + Care Team Providers + +------+ + | Care Hay Rake Operator Name | Role | Phone | [...] | Question | | 2019 | | [place] at [facility] [address] | MD [address] | | | | | [address] | [address] | | | | | Mailcode: Center | [place], [place] | | | | | [facility] and | [address] | | | | | [facility] 2 | [phone] | | | | | [place], [place] | | | | | | [address] | | | | | | [phone] | | | +--------+ + + + [...]
--- OUTSIDE RECORDS SUMMARY | ~2019-03-11 | XMS | Encounter Summary ---
Demographics + + + | Address | [address] | | | [place] [address] | + + + | Home Phone [...] [place] | | | | | [address] | | + + + + + Care Team Providers + +------+ + | Care Professional Advisor Name | Role | Phone | + [...] | | 2019 | | Center at [facility] [address] | [address] | Review | | | | [address] | [address] | | | | | Mailcode: Center | [place], [place] | | | | | for Health and | [address] | | | | | [facility] 2 | [phone] | | | | | [place], [place] | | | | | | [address] | | | | | | [phone] | | | +--------+ + + + [...]
--- OUTSIDE RECORDS SUMMARY | ~2019-03-11 | XMS | Encounter Summary ---
Demographics + + + | Address | [address] | | | [place] [address] | + + + | Home Phone | | + + + | Preferred Language | Unknown | + + + | Marital Status | | + + + | Restorationist Affiliation | 1061 | + + + | Race | Unknown | + + + | Ethnic Group | Unknown | + + + Author + + + | Author | [facility] | | | and [place] | + + + | Organization | [facility] | | | and [...] [place] | | | | | [address] | | + + + + + | Christy Flaherty | ECON | [address] | | | | | [place] | | | | | [address] | | + + + + + Care Team Providers + +------+ + | Care Cleaning Professional Name | Role | Phone | [...] + + | 02/02/ | Telephone | [facility] | Carlos Morales MD | Referral | | 2017 | | GASTROENTEROLOGY | [address], [place] | | | | | [address] [place] | [address] [place], [place] | | | | | [address] [place] | [address] | | | | | [address] | | | | | | [phone] | | | +--------+ + + + [...]
--- OUTSIDE RECORDS SUMMARY | ~2019-03-11 | XMS | Encounter Summary ---
Demographics + + + | Address | [address] | | | [place] [address] | + + + | Home Phone [...] [place] | | | | | [address] | | + + + + + Care Team Providers + +------+ + | Care Grade School Teacher Name | Role | Phone [...] | Procedural Unit at | MD An[facility] [address] [facility] | | | | | [place] [address] | | | | | [address] | [place], [place] | | | | | Mailcode: [id number] | [address] | | | | | [address] | [phone] | | | | | [address] [place], [place] | | | | | | [address] | | | | | | [phone] | | | +--------+ + + + [...]
--- OUTSIDE RECORDS SUMMARY | ~2019-03-11 | XMS | Encounter Summary ---
Demographics + + + | Address | [address] | | | [place] [address] | + + + | Home Phone | | + + + | Preferred Language | Unknown | + + + | Marital Status | | + + + | Jain Affiliation | ASG | + + + | Race | White | + + + | Ethnic Group | Not or | + + + Author + + + | Author | [facility] | + + + | Organization | [facility] | + + + [...] [place] | | | | | [address] | | + + + + + Care Team Providers + +------+ + | Care Automotive Product Engineer Name | Role | Phone | + +------+ + | Filippo Chen DO | PCP | | + +------+ + Encounter Details +--------+ + + + + | Date | Type | Department | Care Team | Description | +--------+ + + + + | 01/18/ | Document-Sc | Health Information | Unknown . | | | 2017 | anned | Services [address] | | | | | [address] | | | | | | Mailcode: [id number] | | | | | | [facility] | | | | | | [place], [place] | | | | | | [address] | | | | | | [phone] | | | +--------+ + + + [...]
--- OUTSIDE RECORDS SUMMARY | ~2019-03-11 | XMS | Encounter Summary ---
Demographics + + + | Address | [address] | | | [place] [address] | + + + | Home Phone [...] [place] | | | | | [address] | | + + + + + | Christy Flaherty | ECON | [address] | | | | | [place] | | | | | [address] | | + + + + + Care Team Providers + +------+ + | Care Tool Crib Supervisor Name | Role | Phone | + +------+ + | Juan Demarco MD | PCP | | + +------+ + Encounter Details +--------+ + + + + | Date | Type | Department | Care Team | Description | +--------+ + + + + | 12/19/ | Hospital | [facility] | Conversion | | | 2015 | [facility] | [facility] | Transaction, | | | | | OUTPATIENT | Provider Unknown | | | | | PROCEDURES [address] | | | | [address] | (Fax) | | | | | [place], [place] | | | | | | [address] | | | | | | [phone] | | | +--------+ + + + [...]
--- OUTSIDE RECORDS SUMMARY | ~2019-03-11 | XMS | Encounter Summary ---
Demographics + + + | Address | [address] | | | [place] [address] | + + + | Home Phone [...] [place] | | | | | [address] | | + + + + + Care Team Providers + +------+ + | Care Boat Builder And Repairer Name | Role | Phone | [...] | | Review | | | | [address] | | | | | | [address] | | | | | | Mailcode: U[address]83 | | | | | | [address] [place] | | | | | | [address] [place], [place] | | | | | | [address] | | | | | | [phone] | | | +--------+ + + + [...]
--- OUTSIDE RECORDS SUMMARY | ~2019-03-11 | XMS | Encounter Summary ---
Demographics + + + | Address | [address] | | | [place] [address] | + + + | Home Phone | | + + + | Preferred Language | Unknown | + + + | Marital Status | | + + + | Restoration Affiliation | 1061 | + + + [...] [place] | | | | | [address] | | + + + + + | Christy Flaherty | ECON | [address] | | | | | [place] | | | | | [address] | | + + + + + Care Team Providers + +------+ + | Care Lip Cutter Name | Role | Phone | + +------+ + | Juan Demarco MD | PCP | | + +------+ + Encounter Details +--------+ + + + + | Date | Type | Department | Care Team | Description | +--------+ + + + + | 10/19/ | Orders Only | [facility] | Juan Manuel Sams | | | 2015 | | NEUROLOGY [address] | MD [address] | | | | | [address] | [place] [address] | | | | | [place] | [place] [address] | | | | | [address] | [phone] | | | | | [phone] | | | +--------+ + + + [...] 1.023 | | EXTERNAL | | | [place] | | | LAB | | + [...]
--- OUTSIDE RECORDS SUMMARY | ~2019-03-11 | XMS | Encounter Summary ---
Demographics + + + | Address | [address] | | | [place] [address] | + + + | Home Phone [...] [place] | | | | | [address] | | + + + + + | Christy Flaherty | ECON | [address] | | | | | [place] | | | | | [address] | | + + + + + Care Team Providers + +------+ + | Care Commercial Credit Head Name | Role | Phone | + +------+ + | Juan Demarco MD | PCP | | + +------+ + Encounter Details +--------+ + + + + | Date | Type | Department | Care Team | Description | +--------+ + + + + | 11/07/ | Hospital | [facility] | Conversion | Pain | | 2015 | Encounter | CONVERSION [address] | Transaction, | | | | | [address] | Provider Unknown | | | | | [place] | | | | | | [address] | (Fax) | | | | | [phone] | | | +--------+ + + + [...]
--- OUTSIDE RECORDS SUMMARY | ~2019-03-11 | XMS | Encounter Summary ---
Demographics + + + | Address | [address] | | | [place] [address] | + + + | Home Phone [...] [place] | | | | | [address] | | + + + + + | Christy Flaherty | ECON | [address] | | | | | [place] | | | | | [address] | | + + + + + Care Team Providers + +------+ + | Care Hydraulic Corrugating Machine Operator Name | Role | Phone | + +------+ + | Juan Demarco MD | PCP | | + +------+ + Encounter Details +--------+ + + + + | Date | Type | Department | Care Team | Description | +--------+ + + + + | 05/15/ | Orders Only | [facility] | Conversion | | | 2015 | | INFECTIOUS DISEASE | Transaction, | | | | | [address] | Provider Unknown | | | | | [place], [place] | | | | | | [address] | (Fax) | | | | | [phone] | | | +--------+ + + + [...]
--- OUTSIDE RECORDS SUMMARY | ~2019-03-11 | XMS | Encounter Summary ---
Demographics + + + | Address | [address] | | | [place] [address] | + + + | Home Phone [...] + + + | Author | [facility] | + + + | Organization | [facility] | + + + | Address | Unknown | + + + | Phone | Unavailable | + + + Support + + + + + | Name | Relationship | Address | Phone | + + + + + | Christy Flaherty | ECON | [address] | | | | | [place] | | | | | [address] | | + + + + + Care Team Providers + +------+ + | Care Dive Superintendent Name | Role | Phone | + +------+ + | Filippo Chen DO | PCP | | + +------+ + Encounter Details +--------+ + + + + | Date | Type | Department | Care Team | Description | +--------+ + + + + | 11/04/ | MyChart | Neurology at | Noe [place], | RE: Additional | | 2016 | Encounter | [facility] & | | Medications | | | | Healing [address] | | | | | | [address] Mailcode: | | | | | | [facility] | | | | | | Health and Healing, | | | | | | Building | | | | | | Floor [place], [place] | | | | | | [address] | | | | | | [phone] | | | +--------+ + + + [...]
--- OUTSIDE RECORDS SUMMARY | ~2019-03-11 | XMS | Encounter Summary ---
Demographics + + + | Address | [address] | | | [place] [address] | + + + | Home Phone | | + + + | Preferred Language | Unknown | + + + | Marital Status | | + + + | Mormon Affiliation | 1061 | + + + | Race | Unknown | + + + | Ethnic Group | Unknown | + + + Author + + + | Author | [facility] | | | and [place] | + + + | Organization | [facility] | | | and [...] [place] | | | | | [address] | | + + + + + | Christy Flaherty | ECON | [address] | | | | | [place] | | | | | [address] | | + + + + + Care Team Providers + +------+ + | Care Box Toe Maker Name | Role | Phone | + +------+ + | Juan Demarco MD | PCP | | + +------+ + Encounter Details +--------+ + + + + | Date | Type | Department | Care Team | Description | +--------+ + + + + | 12/31/ | Orders Only | [facility] | Conversion | | | 2014 | | INFECTIOUS DISEASE | Transaction, | | | | | [address] | Provider Unknown | | | | | [place], [place] | | | | | | [address] | (Fax) | | | | | [phone] | | | +--------+ + + + [...]
--- OUTSIDE RECORDS SUMMARY | ~2019-03-11 | XMS | Encounter Summary ---
Demographics + + + | Address | [address] | | | [place] [address] | + + + | Home Phone [...] [place] | | | | | [address] | | + + + + + Care Team Providers + +------+ + | Care Asbestos Surveyor Name | Role | Phone | + [...] | | | | | pancreatitis | [facility] | Mailcode: | | | | | (HCC) | Rd | [address] | | | | | Procedures | [place], [place] | [place] | | | | | CONSULT TO | [address] | [address] | | | | | GI PROCEDURE | Phone: | [place], | | | | | UNIT: EUS | [phone] | [place] [address] | | | | | LIMITED [place] | Fax: | Phone: | | | | | ANESTH UPPER | [phone] | [phone] | | | | | GI | | Fax: | | | | | ENDOSCOPIC | | [phone] | | | | | VISUALIZE | | | | | | | [place] UP[facility] GI | | | | | [...] | | | | | Elevated | [place], [place] | Health and | | | | | lipase | [address] | Healing, | | | | | Procedures | Phone: | [address] | | | | | CONSULT TO | [phone] | [place], [place] | | | | | [place] | Fax: | [address] | | | | | [place] | [phone] | Phone: | | | | | | | [phone] | | | | | | | Fax: | | | | | | | [phone] | +--------+--------+ + + + + Encounter [...] | | | | Mailcode: Center | [place], [place] | | | | | for Health and | [address] | | | | | [facility] [address] | [phone] | | | | | [place], [place] | | | | | | [address] | | | | | | [phone] | | | +--------+---------+ + + + [...] might be different fro m the original. [facility] Patient Name: Daysi Flaherty MR#: [id number] : 1965 This is a 51 y/o [...] in the last one years. His [facility] is 236. On one or two [...] 6 week with no resolution. He has Blount 1 stools. He is non-smoker (ex-smoker) and [...] upon disco ntinue. Meloxicam Diarrhea Bowel incontinence Tklumwb-Cbm-Ssy Reductase Inhibitors Seizures Increased frequency of seizures, [...]
--- OUTSIDE RECORDS SUMMARY | ~2019-03-11 | XMS | Encounter Summary ---
Demographics + + + | Address | [address] | | | [place] [address] | + + + | Home Phone [...] [place] | | | | | [address] | | + + + + + | Christy Flaherty | ECON | [address] | | | | | [place] | | | | | [address] | | + + + + + Care Team Providers + +------+ + | Care Biological Plant Operator Name | Role | Phone | [...] + + | 09/12/ | Office | [facility] | [place] | Contusion of right | | 2014 | Visit | [facility] | [address] | hand, subsequent | | | | [address] | 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 Variou s methods of self treatment have not brought about any improvement. I asked him once again about what he's been doing with his hand, and he states basically he's been leading a sedent luiz life. He ended up leaving his job with the [employer] for which this injury oc curred, and then went to work in [employer] which he started in May of this [...] Vital signs as noted, nursing notes reviewed. Ujoqgex-pgmb-wawnvhpdb, well-nourished, in no apparent distress, pleasant cooperative. 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 | [facility] | | FINDINGS:3 views of the [...] + + | Performing | Address | City[facility]State[facility] | Phone Number | | Organization | | | | + + + + + | [address] | [address] | [place] | [phone] | | [facility] | | [address] | | | - IMAGING | | | | + + + + + documented in this encounter Visit Diagnoses + + | Diagnosis | + + | Contusion of right hand, subsequent encounter - Primary | + + | Place of occurrence, industrial places and premises | + + documented in this encounter
--- OUTSIDE RECORDS SUMMARY | ~2019-03-11 | XMS | Encounter Summary ---
Demographics + + + | Address | [address] | | | [place] [address] | + + + | Home Phone | | + + + | Preferred Language | Unknown | + + + | Marital Status | | + + + | Religion Affiliation | 1061 | + + + [...] [place] | | | | | [address] | | + + + + + | Christy Flaherty | ECON | [address] | | | | | [place] | | | | | [address] | | + + + + + Care Team Providers + +------+ + | Care Steam Heating Installer Name | Role | Phone | + +------+ + | Juan Demarco MD | PCP | | + +------+ + Encounter Details +--------+ + + + + | Date | Type | Department | Care Team | Description | +--------+ + + + + | 03/04/ | Orders Only | [facility] | Conversion | | | 2014 | | INFECTIOUS DISEASE | Transaction, | | | | | [address] | Provider Unknown | | | | | [place], [place] | | | | | | [address] | (Fax) | | | | | [phone] | | | +--------+ + + + [...] + + | PROTEIN | Routin | 03/04/2015 | | Results for this | | ELECTROPHORESIS, | e | 12:00 AM | | procedure are in the | | SERUM | | PST | | results section. | + +--------+ + + + | IMMUNOGLOBULIN E | Routin | 03/04/2015 | | Results for this | | | e | 12:00 AM | | procedure are in the | | | | PST | | results section. | + +--------+ + + + | FERRITIN | Routin | 03/04/2015 | | Results for this | | | e | 12:00 AM | | procedure are in the | | | | PST | | results section. | + +--------+ + + + documented in this encounter Results Protein Electrophoresis, Serum (03/04/2015 12:00 AM PST) + + + + + + | Component | Value | Ref Range | Performed | Pathologist | | | | | At | Signature | + + + + + + | Protein, | 6.1 (A) | 6.5 - 8.3 | EXTERNAL | | | Total | | | LAB | | + + + + + + | Albumin | 3.84 | g/dL | EXTERNAL | | | | | | LAB | | + + + + + + | ALPHA 1, BF | 0.15 | | EXTERNAL | | | | | | LAB | | + + + + + + | ALPHA 2 | 0.59 | | EXTERNAL | | | GLOBULIN | | | LAB | | + + + + + + | Beta-1 | 0.94 | | EXTERNAL | | | | | | LAB | | + + + + + + | BETA 2, BF | | | EXTERNAL | | | | | | LAB | | + + + + + + | GAMMA | 0.58 | | EXTERNAL | | | GLOBULIN | | | LAB | | + + + + + + | Albumin | | | EXTERNAL | | | | | | LAB | | + + + + + + | ALPHA 1, BF | | | EXTERNAL | | | | | | LAB | | + + + + + + | Alpha 2 % | | | EXTERNAL | | | | | | LAB | | + + + + + + | Beta-1 % | | | EXTERNAL | | | | | | LAB | | + + + + + + | Beta-2 % | | | EXTERNAL | | | | | | LAB | | + + + + + + | GAMMA, BF | | | EXTERNAL | | | | | | LAB | | + + + + + + | Interpretat | ESSENTIALLY NORMAL SERUM | | EXTERNAL | | | ion: | PROTEIN | | LAB | | | | ELECTROPHORESIS. | | | | + + + + + + | Immunofixat | | | EXTERNAL | | | ion, Urine | | | LAB | | | Interp | | | | | + + + + + + + + | Specimen | + + | Blood specimen | | (specimen) | + + + +---------+ + + | Performing | Address | City/State/Zipcode | Phone Number | | Organization | | | | + +---------+ + + | EXTERNAL LAB | | | | + +---------+ + + Immunoglobulin E (03/04/2015 12:00 AM PST) + +-------+ + + + | Component | Value | Ref Range | Performed | Pathologist | | | | | At | Signature | + +-------+ + + + | Immunoglobu | 49.38 | 0 - 100 IU/ml | EXTERNAL | | | lindsey IgE | | | LAB | | + +-------+ + + + + + | Specimen | + + | Blood specimen | | (specimen) | + + + +---------+ + + | Performing | Address | City/State/Zipcode | Phone Number | | Organization | | | | + +---------+ + + | EXTERNAL LAB | | | | + +---------+ + + Ferritin (03/04/2015 12:00 AM PST) + +-------+ + + + | Component | Value | Ref Range | Performed | Pathologist | | | | | At | Signature | + +-------+ + + + | Ferritin, | 145.1 | 30 - 400 ng/mL | EXTERNAL | | | External [...]
--- OUTSIDE RECORDS SUMMARY | ~2019-03-11 | XMS | Encounter Summary ---
Demographics + + + | Address | [address] | | | [place] [address] | + + + | Home Phone | | + + + | Preferred Language | Unknown | + + + | Marital Status | | + + + | Spiritism Affiliation | 1061 | + + + [...] [place] | | | | | [address] | | + + + + + | Christy Flaherty | ECON | [address] | | | | | [place] | | | | | [address] | | + + + + + Care Team Providers + +------+ + | Care Surface Mount Technology Operator Name | Role | Phone | + +------+ + | Juan Demarco MD | PCP | | + +------+ + Encounter Details +--------+ + + + + | Date | Type | Department | Care Team | Description | +--------+ + + + + | 01/08/ | Hospital | [facility] | Conversion | Rheumatic fever; | | 2014 | Encounter | CENTER CV INTRA OP | Transaction, | Aortic valve | | | | [address] | Provider Unknown | disorder | | | | [place], [place] | [phone] | | | | | [address] | | | | | | [phone] | Jb Mendiola MD | | | | | | [address] | | | | | | [place] [address] | | | | | | [phone] | | | | | | | [...] 01/08/151046 Date of Service: 01/08/151042 Status: Signed Vault Worker: Bolivar Pemberton RN (Registered Nurse) Pt tolerated [...]
--- OUTSIDE RECORDS SUMMARY | ~2019-03-11 | XMS | Encounter Summary ---
Demographics + + + | Address | [address] | | | [place] [address] | + + + | Home Phone | | + + + | Preferred Language | Unknown | + + + | Marital Status | | + + + | Episcopalian Affiliation | 1061 | + + + | Race | Unknown | + + + | Ethnic Group | Unknown | + + + Author + + + | Author | [facility] | | | and [place] | + + + | Organization | [facility] | | [...] [place] | | | | | [address] | | + + + + + | Christy Flaherty | ECON | [address] | | | | | [place] | | | | | [address] | | + + + + + Care Team Providers + +------+ + | Care Retarder Operator Name | Role | Phone | + +------+ + | Juan Demarco MD | PCP | | + +------+ + Encounter Details +--------+ + + + + | Date | Type | Department | Care Team | Description | +--------+ + + + + | 07/10/ | Hospital | [facility] | Conversion | Aortic valve | | 2016 | Encounter | CENTER CV INTRA OP | Transaction, | disorder | | | | [address] | Provider Unknown | | | | | [place], [place] | [phone] | | | | | [address] | | | | | | [phone] | Davion Santana MD | | | | | | [address] | | | | | | [place] [address] | | | | | | [phone] | | | | | | | [...] 07/11/151616 Date of Service: 07/11/151616 Status: Signed Winch Stripper: Ike Luther RN (Registered Nurse) Discharge instructions completed. All questions answered. IV discontinued with coannula in tact. Patient discharged to home with . onver kelsey Transaction, Provider Unknown - 07/11/2015 3:11 PM PDT Nurse Progress Note by Ike Luther RN at 07/11/151510 Author: Ike Luther RN Service: (none) Author Type: Registered Nurse Filed: 07/11/151511 Date of Service: 07/11/151510 Status: Signed Winch Stripper: Ike Luther RN (Registered Nurse) Patient tolerated [...]
--- OUTSIDE RECORDS SUMMARY | ~2019-03-11 | XMS | Encounter Summary ---
Demographics + + + | Address | [address] | | | [place] [address] | + + + | Home Phone [...] + + + | Author | [facility] | + + + | Organization | [facility] | + + + | Address | Unknown | + + + | Phone | Unavailable | + + + Support + + + + + | Name | Relationship | Address | Phone | + + + + + | Christy Flaherty | ECON | [address] | | | | | [place] | | | | | [address] | | + + + + + Care Team Providers + +------+ + | Care Component Assembler Name | Role | Phone | [...] | | | | | pancreatitis | [facility] | [facility] | | | | | (HCC) | Rd | Rd [place], | | | | | Procedures | [place], [place] | [place] | | | | | CONSULT TO | [address] | [address] | | | | | SURGERY - | Phone: | Phone: | | | | | GENERAL | [phone] | [phone] | | | | | | Fax: | Fax: | | | | | | [phone] | [phone] | + +--------+ + + + + [...] | chronic | [address] | [address] | | | | | pancreatitis | [address] | Rd | | | | | (HCC) | Rd | Mailcode: | | | | | Procedures | [place], [place] | [address] | | | | | MR ABDOMEN W | [address] | [place] | | | | | MRCP WITH | Phone: | Research | | | | | SECRETIN WWO | [phone] | Center | | | | | [place] MRI, | Fax: | [place], [place] | | | | | ABDOMEN, | [phone] | [address] | | | | | [address]BO [address] | | Phone: | | | | | RNDR W/O | | [phone] | | | | | PSTPRCSS | | Fax: | | | | | | | [phone] | + +--------+ + + + + Encounter Details +--------+ + + + + | Date | Type | Department | Care Team | Description | +--------+ + + + + | 10/28/ | Electrical Appliance Repairer | Digestive Health | Taiwo Tilley, | 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
--- OUTSIDE RECORDS SUMMARY | ~2019-03-11 | XMS | Encounter Summary ---
Demographics + + + | Address | [address] | | | [place] [address] | + + + | Home Phone | | + + + | Preferred Language | Unknown | + + + | Marital Status | | + + + | Jew Affiliation | ASG | + + + [...] [place] | | | | | [address] | | + + + + + Care Team Providers + +------+ + | Care Executive Candidate Developer Name | Role | Phone | + +------+ + | Filippo Chen DO | PCP | | + +------+ + Encounter Details +--------+------+ + + + | Date | Type | Department | Care Team | Description | +--------+------+ + + + | 09/04/ | Lab | Laboratory at [facility] | | Encounter for | | 2016 | | [address] | | long-term current | | | | [place], [place] | | use of medication | | | | [address] | | | | | | [phone] | | | +--------+------+ + + + [...] [facility] | [address] | [place] [address] | | | SERVICES, CENTER FOR | [...] [facility] | [address] | [place] [address] | | | SERVICES, CORE | PARK [...] | | | LABORATORY | | | G[facility] | | | SERVICES, | | | [...] the MDRD equation recommended by the | [facility] | | National Kidney Disease Education Program. [...] + + + + + | [facility] | [address] | [place] [address] | | | JACINTA, JAMISON | JEROME KUHN | | | + + + + + documented in this encounter Visit Diagnoses + + | Diagnosis | + + | Encounter for long-term current use of medication | + + documented in this encounter"
--- OUTSIDE RECORDS SUMMARY | ~2019-03-11 | XMS | Encounter Summary ---
Demographics + + + | Address | [address] | | | [place] [address] | + + + | Home Phone | | + + + | Preferred Language | Unknown | + + + | Marital Status | | + + + | Advent Affiliation | 1061 | + + + | Race | Unknown | + + + | Ethnic Group | Unknown | + + + Author + + + | Author | [facility] | | | and [place] | + + + | Organization | [facility] | | | [...] [place] | | | | | [address] | | + + + + + | Christy Flaherty | ECON | [address] | | | | | [place] | | | | | [address] | | + + + + + Care Team Providers + +------+ + | Care Cargo Surveyor Name | Role | Phone | + +------+ + | Juan Demarco MD | PCP | | + +------+ + Encounter Details +--------+ + + + + | Date | Type | Department | Care Team | Description | +--------+ + + + + | 11/07/ | Orders Only | [facility] | Conversion | | | 2015 | | INFECTIOUS DISEASE | Transaction, | | | | | [address] | Provider Unknown | | | | | [place], [place] | | | | | | [address] | (Fax) | | | | | [phone] | | | +--------+ + + + [...] + + + | RED CELL | 4.80 | 4.3 - 5.7 10 | EXTERNAL | | | COUNT | | | LAB | | + + + + + + | Hgb | 14.8 | 13.5 - 18.0 | [...]
--- OUTSIDE RECORDS SUMMARY | ~2019-03-11 | XMS | Encounter Summary ---
Demographics + + + | Address | [address] | | | [place] [address] | + + + | Home Phone | | + + + | Preferred Language | Unknown | + + + | Marital Status | | + + + | Mormon Affiliation | 1061 | + + + | Race | Unknown | + + + | Ethnic Group | Unknown | + + + Author + + + | Author | [facility] | | | and [place] | + + + | Organization | [facility] | | [...] [place] | | | | | [address] | | + + + + + | Christy Grande | ECON | [address] | | | | | [place] | | | | | [address] | | + + + + + Care Team Providers + +------+ + | Care Lead Tank Mechanic Name | Role | Phone | + +------+ + | Juan Demarco MD | PCP | | + +------+ + Encounter Details +--------+ + + + + | Date | Type | Department | Care Team | Description | +--------+ + + + + | 08/03/ | Orders Only | [facility] | [place], | | | 2019 | | CONVERSION 888 | [address] | | | | | [place] | [place] | | | | | [place], [place] | [address] | | | | | [address] | [phone] | | | | | [phone] | | | +--------+ + + + [...] + | ECHO INTERPRETATION | Routin | 08/03/2018 | | Results for this | | OF OUTSIDE FILMS | e | 5:34 PM | | procedure are in the | | | | PDT | | results section. | + +--------+ + + + documented in this encounter Results ECHO Interpretation of Outside Films (08/03/2018 5:34 PM PDT) + + | Specimen | + + | | + + + + + | Impressions | Performed At | + + + | 1. This was a technically difficult study with suboptimal views. 2. | | | Overall left ventricular systolic function is low-normal with an EF | | | between 50 - 55 %. 3. The right ventricle is normal in size and | | | function. 4. There is dksn-dz-sshdzmkj aortic regurgitation. 5. In | | | comparison to the previous echocardiographic study, done 07/20/16, only | | | minor changes are noted, as reported below. | | + + + + + + | Narrative | Performed At | + + + | Patient Name: JOHNNY GRANDE Date of : 1965 | | | Performing Physician: Sarthak Lucia | | | | | | INDICATIONS HX [...] function. 4. There | | | is sszq-ce-ytvaqriz aortic regurgitation. 5. In comparison to the | | | previous echocardiographic study, done 07/20/16, only minor changes are | | | noted, as reported below. FINDINGS -------- ECG rhythm: Sinus | | | rhythm. Study: A 2-dimensional transthoracic echocardiogram with | | | m-mode, spectral and color flow Doppler was perfomed. Study: This was | | | a technically difficult study with suboptimal views. Left Ventricle: | | | Overall left ventricular systolic function is low-normal with an EF | | | between 50 - 55 %, unchanged from the previous study. Left Ventricle: | | | The left ventricle cavity size is normal. Left Ventricle: Left | | | ventricular wall thickness is normal. Left Ventricle: No regional | | | wall motion abnormalities. Left Ventricle: The diastolic filling | | | pattern is normal for the age of the patient. Right Ventricle: The | | | right ventricle is normal in size and function. Right Ventricle: The | | | RV was not well visualized. Left Atrium: The left atrium is normal in | | | size. Right Atrium: The right atrium is normal in size. Aortic | | | Valve: The aortic valve was not well visualized, and its structure | | | could not be determined with certainty, but appears to most likely be | | | trileaflet, although it was reported to be bicuspid on a previous KRAIG. | | | Aortic Valve: There is qmes-pm-injkydbt aortic regurgitation, | | | decreased from moderate AI on the prior study. It was moderate on the | | | prior study. Aortic Valve: There is no evidence of aortic stenosis. | | | There was mild reported on the prior study. The anterior leaflet | | | Aortic Valve: is moderately thickened and calcified. Mitral Valve: | | | Normal appearing mitral valve. Mitral Valve: Mild mitral | | | regurgitation is present. Mitral Valve: No evidence of MVP. Mitral | | | Valve: Mild thickening of the anterior mitral valve leaflet. | | | Tricuspid Valve: The tricuspid valve appears structurally normal. | | | Tricuspid Valve: Trace tricuspid regurgitation present. Tricuspid | | | Valve: There is no evidence of pulmonary hypertension. Tricuspid | | | Valve: The right ventricular systolic pressure (pulmonary artery | | | systolic pressure), as measured by Doppler, is 23 mm Hg. Pulmonic | | | Valve: The pulmonic valve was not well visualized. Pericardium: There | | | is no pericardial effusion. IVC/Hepatic Veins: The inferior vena | | | cava is normal in size and collapses > 50 % with sniff, indicating | | | normal central venous pressures. Aorta: The aortic root, ascending | | | aorta and aortic arch are normal. Mass: No mass visualized Thrombus: | | | No clot visualized Thrombus: No vegetation visualized. Septum: No | | | ASD observed. Septum: No VSD observed. MEASUREMENTS | | | Ao sinus: 3.[address] junct: 2.67 cm | | | EDV(Teich): 150.69 ml IVSd: 0.88 cm LVIDd: 5.55 cm LVPWd: | | | 0.78 cm LVOT Area: 3.90 cm2 LVOT Diam: 2.22 cm %FS: | | | 21.16 % EF(Teich): 42.51 % ESV(Teich): 86.63 ml LVIDs: | | | 4.37 cm SV(Teich): 64.06 ml RV Major: 8.82 cm RV Minor: | | | 3.15 cm LVEF MOD A4C: 57.64 % SV MOD A4C: 113.24 ml LVEDV MOD | | | A4C: 196.46 ml LVLd A4C: 9.01 cm LVESV MOD A4C: 83.21 ml | | | LVLs A4C: 8.29 cm LAESV(A-L): 48.21 ml LAESV Index (A-L): | | | 20.96 ml/m2 LAAs A2C: 16.67 cm2 LAESV A-L A2C: 52.96 ml LALs | | | A2C: 4.45 cm LAAs A4C: 15.18 cm2 LAESV A-L A4C: 41.97 ml | | | LALs A4C: 4.66 cm RAAs: 11.25 cm2 RAESV A-L: 24.67 ml | | | RAESV MOD: 24.34 ml RALs: 4.35 cm TAPSE: 2.25 cm AV maxPG: | | | 12.73 mmHg AV meanP.49 mmHg AV Vmax: 1.78 m/s AV | | | Vmean: 1.19 m/s AV VTI: 38.51 cm JENNI Vmax: 1.78 cm2 JENNI | | | (VTI): 2.07 cm2 AVAI (Vmax): 0.00 cm2/m2 AVAI (VTI): 0.00 | | | cm2/m2 LVOT maxP.67 mmHg LVOT meanP.41 mmHg LVSI | | | Dopp: 34.67 ml/m2 LVSV Dopp: 79.74 ml LVOT Vmax: 0.81 m/s | | | LVOT Vmean: 0.56 m/s LVOT VTI: 20.44 cm MV A George: 0.45 m/s | | | MV Dec Howell: 2.84 m/s2 MV DecT: 216.66 ms MV E George: 0.61 | | | m/s MV E/A Ratio: 1.36 MV PHT: 62.83 ms MVA By PHT: 3.50 | | | cm2 Septal e': 0.06 m/s Septal E/e': 8.91 Lateral e': 0.08 | | | m/s Lateral E/e': 7.04 TR maxP.53 mmHg TR Vmax: 1.77 | | | m/s RV s': 0.09 m/s Ophthalmic Tech: COURT Authenticated by: | | | Sarthak Lucia Report Date/Time: 08-03-2018 19:45:5 | | + + + + + | Procedure Note | + + | Kj, Rad Conversion - 11/17/2018 1:41 PM PDT Patient Name: Jen GRANDE of | | : 1965 Performing Physician: Sarthak Busby | | [facility]hr INDICATIONS | | -HX OF AORTIC INSUFFICIENCY, ENDOCARDITIS, POST OP GALLBLADDER CONCLUSIONS 1. | | This was a technically difficult study with suboptimal views.2. Overall left ventricular | | systolic function is low-normal with an EF between 50 - 55 %.3. The right ventricle is | | normal in size and function.4. There is opfj-dl-jukzhsaa aortic regurgitation. 5. In | | comparison to the previous echocardiographic study, done 07/20/16, only minor changes are | | noted, as reported below. FINDINGS--------ECG rhythm: Sinus rhythm.Study: A | | 2-dimensional transthoracic echocardiogram with m-mode, spectral and color flow Doppler | | was perfomed.Study: This was a technically difficult study with suboptimal views.Left | | Ventricle: Overall left ventricular systolic function is low-normal with an EF between | | 50 - 55 %, unchanged from the previous study.Left Ventricle: The left ventricle cavity | | size is normal.Left Ventricle: Left ventricular wall thickness is normal.Left Ventricle: | | No regional wall motion abnormalities.Left Ventricle: The diastolic filling pattern is | | normal for the age of the patient.Right Ventricle: The right ventricle is normal in size | | and function.Right Ventricle: The RV was not well visualized.Left Atrium: The left | | atrium is normal in size.Right Atrium: The right atrium is normal in size.Aortic Valve: | | The aortic valve was not well visualized, and its structure could not be determined with | | certainty, but appears to most likely be trileaflet, although it was reported to be | | bicuspid on a previous KRAIG.Aortic Valve: There is uosq-mn-mtvpwaec aortic regurgitation, | | decreased from moderate AI on the prior study. It was moderate on the prior | | study.Aortic Valve: There is no evidence of aortic stenosis. There was mild reported | | on the prior study. The anterior leafletAortic Valve: is moderately thickened and | | calcified.Mitral Valve: Normal appearing mitral valve.Mitral Valve: Mild mitral | | regurgitation is present.Mitral Valve: No evidence of MVP.Mitral Valve: Mild thickening | | of the anterior mitral valve leaflet.Tricuspid Valve: The tricuspid valve appears | | structurally normal.Tricuspid Valve: Trace tricuspid regurgitation present.Tricuspid | | Valve: There is no evidence of pulmonary hypertension.Tricuspid Valve: The right | | ventricular systolic pressure (pulmonary artery [...] | normal.Mass: No mass visualizedThrombus: No clot visualizedThrombus: No vegetation | | visualized.Septum: No ASD observed.Septum: No VSD observed. MEASUREMENTS Ao | | sinus: 3.[address] junct: 2.67 cmEDV(Teich): 150.69 mlIVSd: 0.88 cmLVIDd: | | 5.55 cmLVPWd: 0.78 cmLVOT Area: 3.90 [id number] Diam: 2.22 cm%FS: 21.16 %EF(Teich): | | 42.51 %ESV(Teich): 86.63 mlLVIDs: 4.37 cmSV(Teich): 64.06 mlRV Major: 8.82 | | cmRV Minor: 3.15 cmLVEF MOD A4C: 57.64 %SV MOD A4C: 113.24 mlLVEDV MOD A4C: | | 196.46 mlLVLd A4C: 9.01 cmLVESV MOD A4C: 83.21 mlLVLs A4C: 8.29 cmLAESV(A-L): | | 48.21 mlLAESV Index (A-L): 20.96 ml/m2LAAs A2C: 16.67 [id number] A-L A2C: 52.96 | | mlLALs A2C: 4.45 cmLAAs A4C: 15.18 [id number] A-L A4C: 41.97 mlLALs A4C: 4.66 | | cmRAAs: 11.25 [id number] A-L: 24.67 mlRAESV MOD: 24.34 mlRALs: 4.35 cmTAPSE: | | 2.25 cmAV maxP.73 mmHgAV meanP.49 mmHgAV Vmax: 1.78 m/Stormy Vmean: 1.19 | | m/Stormy VTI: 38.51 cmAVA Vmax: 1.78 cm2AVA (VTI): 2.07 nn8PEMT (Vmax): 0.00 | | cm2/m2AVAI (VTI): 0.00 cm2/m2LVOT maxP.67 mmHgLVOT meanP.41 mmHgLVSI Dopp: | | 34.67 ml/m2LVSV Dopp: 79.74 mlLVOT Vmax: 0.81 m/sLVOT Vmean: 0.56 m/sLVOT VTI: | | 20.44 cmMV A George: 0.45 m/sMV Dec Howell: 2.84 m/s2MV DecT: 216.66 msMV E George: | | 0.61 m/sMV E/A Ratio: 1.36MV PHT: 62.83 msMVA By PHT: 3.50 bw0Abkjkw e': 0.06 | | m/sSeptal E/e': 8.91Lateral e': 0.08 m/sLateral E/e': 7.04TR maxP.53 mmHgTR | | Vmax: 1.77 m/sRV s': 0.09 m/s Ophthalmic Tech: DBSAuthenticated by: Sarthak Busby | | LehrReport Date/Time: 08-03-2018 19:45:5 IMPRESSION: 1. This was a technically difficult | | study with suboptimal views.2. Overall left ventricular systolic function is low-normal | | with an EF between 50 - 55 %.3. The right ventricle is normal in size and function.4. | | There is czty-aw-hmndlpyj aortic regurgitation. 5. In comparison to the [...] A George: 0.45 m/s | |MV Dec Howell: 2.84 m/s2 | |MV DecT: 216.66 ms [...] |RV s': 0.09 m/s | | | |Ophthalmic Tech: DBS | |Authenticated by: Sarthak Lucia | |Report Date/Time: 5-8-2019 19:45:5 | | | |IMPRESSION: | |1. This was a technically difficult study with suboptimal views. | |2. Overall left ventricular systolic function is low-normal with an EF between 50 - 55 %. | |3. The right ventricle is normal in size and function. | |4. There is ubnx-yz-jscockpo aortic regurgitation. 5. In comparison to the previous echocar diographic study, done 07/20/16, only minor changes are noted, as reported below. | + + documented in this encounter Visit Diagnoses Not on filedocumented in this encounter"
--- OUTSIDE RECORDS SUMMARY | ~2019-03-11 | XMS | Encounter Summary ---
Demographics + + + | Address | [address] | | | [place] [address] | + + + | Home Phone | | + + + | Preferred Language | Unknown | + + + | Marital Status | | + + + | Rastafarian Affiliation | ASG | + + + | Race | White | + + + | Ethnic Group | Not or | + + + Author + + + | Author | [facility] | + + + | Organization | [facility] | + + + | Address | Unknown | + + + | Phone | Unavailable | + + + Support + + + + + | Name | Relationship | Address | Phone | + + + + + | Christy Flaherty | ECON | [address] | | | | | [place] | | | | | [address] | | + + + + + Care Team Providers + +------+ + | Care Bonding Machine Operator Name | Role | Phone [...] | | | | | Pancreatic | Arturha Ania, | [address] | | | | | mass | MD [address] | | | | | Procedures | Elias Fonseca | Mailcode: | | | | | CT ABDOMEN | [address] | [facility] | | | | | [address] IV | [place], [place] | for Health | | | | | [place] | [address] | and Healing, | | | | | CT SCAN OF | Phone: | Building 1, | | | | | ABDOMEN | [phone] | 3rd Floor | | | | | COMBO | Fax: | [place], [place] | | | | | | [phone] | [address] | | | | | | | Phone: | | | | | | | [phone] | | | | | | | Fax: | | | | | | | [phone] | +--------+--------+ + + + + Reason [...] Pancreatic | Brintha K, | [address] | | | | | mass | MD [address] | | | | | Procedures | Elias Fonseca | Mailcode: | | | | | CT ABDOMEN | [address] | [facility] | | | | | WWO IV | [place], [place] | for Health | | | | | [place] | [address] | and Healing, | | | | | CT SCAN OF | Phone: | Building 1, | | | | | ABDOMEN | [phone] | 3rd Floor | | | | | COMBO | Fax: | [place], [place] | | | | | | [phone] | [address] | | | | | | | Phone: | | | | | | | [phone] | | | | | | | Fax: | | | | | | | [phone] | +--------+--------+ + + + + Encounter Details +--------+ + + + + | Date | Type | Department | Care Team | Description | +--------+ + + + + | 03/11/ | Hospital | Radiology/Imaging | Paras Baker | | | 2017 | Encounter | Lab at [facility] [address] | MD Ania [address] [facility] | | | | | [place] Mailcode: | [address] | | | | | [address] for | [place], [place] | | | | | Health and Healing, | [address] | | | | | Building 1, 3rd | [phone] | | | | | Floor [place], [place] | | | | | | [address] | | | | | | [phone] | | | +--------+ + + + [...]
--- OUTSIDE RECORDS SUMMARY | ~2019-03-11 | XMS | Encounter Summary ---
Demographics + + + | Address | [address] | | | [place] [address] | + + + | Home Phone | | + + + | Preferred Language | Unknown | + + + | Marital Status | | + + + | Pentecostal Affiliation | ASG | + + + | Race | White | + + + | Ethnic Group | Not or | + + + Author + + + | Author | [facility] | + + + | Organization | [facility] | + + + | Address | Unknown | + + + | Phone | Unavailable | + + + Support + + + + + | Name | Relationship | Address | Phone | + + + + + | Christy Flaherty | ECON | [address] | | | | | [place] | | | | | [address] | | + + + + + Care Team Providers + +------+ + | Care Neuropsychology Director Name | Role | Phone | [...] | | 2019 | | Center at [facility] [address] | [address] | | | | | [address] | [address] | | | | | Mailcode: Center | [place], [place] | | | | | [facility] and | [address] | | | | | [facility] 2 | [phone] | | | | | [place], [place] | | | | | | [address] | | | | | | [phone] | | | +--------+ + + + [...]
--- OUTSIDE RECORDS SUMMARY | ~2019-03-11 | XMS | Encounter Summary ---
Demographics + + + | Address | [address] | | | [place] [address] | + + + | Home Phone [...] [place] | | | | | [address] | | + + + + + Care Team Providers + +------+ + | Care Paint Sprayer Sandblaster Name | Role | Phone | + [...] | | 2018 | | Center at [facility] [address] | [address] | Received (05/07/2017 | | | | [address] | [address] | Serum Trypsin | | | | Mailcode: Center | [place], [place] | Results- [facility]) | | | | for Health and | [address] | | | | | [facility] 2 | [phone] | | | | | [place], [place] | | | | | | [address] | | | | | | [phone] | | | +--------+ + + + [...]
--- OUTSIDE RECORDS SUMMARY | ~2019-03-11 | XMS | Encounter Summary ---
Demographics + + + | Address | [address] | | | [place] [address] | + + + | Home Phone [...] [place] | | | | | [address] | | + + + + + Care Team Providers + +------+ + | Care Tetryl Dissolver Operator Name | Role | Phone | [...] | | | Acquired | SURGICAL | [facility] | | | | | absence of | CLINIC [address] [place], | | | | | other | [address] | [place] | | | | | specified | AVE | [address] | | | | | parts of | [place], | Phone: | | | | | digestive | [place] [address] | [phone] | | | | | tract | Phone: | Fax: | | | | | | [phone] | [phone] | | | | | | Fax: | | | | | | | [phone] | | + +--------+ + + + [...] | | | | Mailcode: Center | [place], [place] | | | | | [facility] and | [address] | | | | | [facility] 2 | [phone] | | | | | [place], [place] | | | | | | [address] | | | | | | [phone] | | | +--------+---------+ + + + [...] and test results either by telephone or [employer]. The fastest w ay to get a message to our staff is through [employer]vil. Please register and activate [employer] for access to your medical records, results, requests for refills and the ability to have non-urgent communication with our team. [email or web address] If you have questions or need assistance please call [employer] [phone]. To schedule or cancel an appointment, please call [employer] Phone Number Outpatient Clinics 8:00am 4:30 pm [phone] Tilley ordered imaging at [facility] please call to schedule an appointment [employer] Phone Number Radiology Scheduling 8:00 am 4:30 pm [phone] For routine clinical questions and medication refills during regular business hours (8:00 a m 4:30 pm) please call: RN Coordinator Esther Adam RN Clothing Presser Georgina Huerta CMA For URGENT issues during regular business hours please alert the phone staff that your call is urgent. For after-hours urgent issues, page the adult GI provider exhibition carver at [phone]. For EMERGENCIES please go to the nearest [...] to call our clinic with any questions. [phone] documented in this encounter Progress Notes Taiwo Tilley MD - 02/08/2019 2:25 PM PSTFormatting of this note might be different fro m the original. [facility] Patient Name: Daysi Flaherty MR#: [id number] : 1965 HPI: Daysi Flaherty is a [...] to work 3-4 days a month. 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 He describes [...] 6 week with no resolution. He has [employer] 1 stools. He is non-smoker (ex-smoker) and [...] Amitiza [Lubiprostone] Cough Meloxicam Diarrhea Bowel incontinence Xcbmsfp-Wuq-Eff Reductase Inhibitors Seizures Increased frequency of seizures, though pts mentions, pt had an infection during the time the pt was started on a statin and this may have been the cause also. Provider joshua t chaceed a statin again. Review of [...] pancreatitis: Suspect recurrent acute pancreatitis evolving into diamond assorter kori pancreatitis. EUS with FNA was consistent [...] Taiwo Tilley MD [facility] 6TH FLOOR [address] Mailcode: [facility] [place] [phone] signed by Taiwo Tilley MD at 02/08/2019 5:56 PM PSTdocumente d in this encounter Plan of Treatment Not on filedocumented as of this encounter Visit Diagnoses + + | Diagnosis | + + | Idiopathic chronic pancreatitis (HCC) - Primary | + + documented in this encounter
--- OUTSIDE RECORDS SUMMARY | ~2019-03-11 | XMS | Encounter Summary ---
Demographics + + + | Address | [address] | | | [place] [address] | + + + | Home Phone [...] [place] | | | | | [address] | | + + + + + Care Team Providers + +------+ + | Care Chrome Plater Helper Name | Role | Phone | [...] changes | | 2016 | Encounter | [facility] & | | | | | | Healing [address] | | | | | | [address] Mailcode: | | | | | | [facility] | | | | | | Health and Healing, | | | | | | Building | | | | | | [place], [place] | | | | | | [address] | | | | | | [phone] | | | +--------+ + + + [...]
--- OUTSIDE RECORDS SUMMARY | ~2019-03-11 | XMS | Encounter Summary ---
Demographics + + + | Address | [address] | | | [place] [address] | + + + | Home Phone | | + + + | Preferred Language | Unknown | + + + | Marital Status | | + + + | Gnosticist Affiliation | 1061 | + + + | Race | Unknown | + + + | Ethnic Group | Unknown | + + + Author + + + | Author | [facility] | | | and [place] | + + + | Organization | [facility] | | | [...] [place] | | | | | [address] | | + + + + + | Christy Grande | ECON | [address] | | | | | [place] | | | | | [address] | | + + + + + Care Team Providers + +------+ + | Care Cashier Name | Role | Phone | + [...] [place] | | | | | [place], [place] | [address] | | | | | [address] | [phone] | | | | | [phone] | | | +--------+ + + + [...] | | | function. 4. There is iiev-fb-tsfcmjlk aortic regurgitation. 5. In | | | [...] function. 4. There | | | is rwfj-uv-szeiofwu aortic regurgitation. 5. In comparison to the [...] | | | Aortic Valve: There is oazs-bv-wfhnfaqj aortic regurgitation, | | | decreased from [...] 0.45 m/s | | | MV Dec Wharton: 2.84 m/s2 MV DecT: 216.66 ms MV E George: 0.61 | | | m/s MV E/A Ratio: 1.36 MV PHT: 62.83 ms MVA By PHT: 3.50 | | | cm2 Septal e': 0.06 m/s Septal E/e': 8.91 Lateral e': 0.08 | | | m/s Lateral E/e': 7.04 TR maxP.53 mmHg TR Vmax: 1.77 | | | m/s RV s': 0.09 m/s Photoresist Contact Printer: COURT Authenticated by: | | | Sarthak [...] normal in size and function.4. There is xdgy-mn-gptgirfu aortic regurgitation. 5. In | | comparison [...] on a previous KRAIG.Aortic Valve: There is qzeb-oh-tcyiynhh aortic regurgitation, | | decreased from moderate [...] | 5.55 cmLVPWd: 0.78 cmLVOT Area: 3.90 eb3NOCY Diam: 2.22 cm%FS: 21.16 %EF(Teich): | | 42.51 %ESV(Teich): 86.63 mlLVIDs: 4.37 cmSV(Teich): 64.06 mlRV Major: 8.82 | | cmRV Minor: 3.15 cmLVEF MOD A4C: 57.64 %SV MOD A4C: 113.24 mlLVEDV MOD A4C: | | 196.46 mlLVLd A4C: 9.01 cmLVESV MOD A4C: 83.21 mlLVLs A4C: 8.29 cmLAESV(A-L): | | 48.21 mlLAESV Index (A-L): 20.96 ml/m2LAAs A2C: 16.67 gw8CZWSV A-L A2C: 52.96 | | mlLALs A2C: 4.45 cmLAAs A4C: 15.18 tn2HFQQS A-L A4C: 41.97 mlLALs A4C: 4.66 | | cmRAAs: 11.25 vl0IVSTA A-L: 24.67 mlRAESV MOD: 24.34 mlRALs: 4.35 cmTAPSE: | | 2.25 cmAV maxP.73 mmHgAV meanP.49 mmHgAV Vmax: 1.78 m/Stormy Vmean: 1.19 | | m/Stormy VTI: 38.51 cmAVA Vmax: 1.78 cm2AVA (VTI): 2.07 ix3FPOQ (Vmax): 0.00 | | cm2/m2AVAI (VTI): 0.00 cm2/m2LVOT maxP.67 mmHgLVOT meanP.41 mmHgLVSI Dopp: | | 34.67 ml/m2LVSV Dopp: 79.74 mlLVOT Vmax: 0.81 m/sLVOT Vmean: 0.56 m/sLVOT VTI: | | 20.44 cmMV A George: 0.45 m/sMV Dec Wharton: 2.84 m/s2MV DecT: 216.66 msMV E George: | | 0.61 m/sMV E/A Ratio: 1.36MV PHT: 62.83 msMVA By PHT: 3.50 cs5Ocavyz e': 0.06 | | m/sSeptal E/e': 8.91Lateral e': 0.08 m/sLateral E/e': 7.04TR maxP.53 mmHgTR | | Vmax: 1.77 m/sRV s': 0.09 m/s Photoresist Contact Printer: DBSAuthenticated by: Sarthak Busby | | LehrReport Date/Time: 08-03-2018 19:45:5 IMPRESSION: 1. This was a technically difficult | | study with suboptimal views.2. Overall left ventricular systolic function is low-normal | | with an EF between 50 - 55 %.3. The right ventricle is normal in size and function.4. | | There is hhae-ab-yvkjehay aortic regurgitation. 5. In comparison to the [...] A George: 0.45 m/s | |MV Dec Wharton: 2.84 m/s2 | |MV DecT: 216.66 ms [...] |RV s': 0.09 m/s | | | |Photoresist Contact Printer: DBS | |Authenticated by: Sarthak Lucia | |Report Date/Time: 5-8-2019 19:45:5 | | | |IMPRESSION: | |1. This was a technically difficult study with suboptimal views. | |2. Overall left ventricular systolic function is low-normal with an EF between 50 - 55 %. | |3. The right ventricle is normal in size and function. | |4. There is bsoz-mq-wxlfhvec aortic regurgitation. 5. In comparison to the previous echocar diographic study, done 07/20/16, only minor changes are noted, as reported below. | + + documented in this encounter Visit Diagnoses Not on filedocumented in this encounter"
--- OUTSIDE RECORDS SUMMARY | ~2019-03-11 | XMS | Encounter Summary ---
Demographics + + + | Address | [address] | | | [place] [address] | + + + | Home Phone | | + + + | Preferred Language | Unknown | + + + | Marital Status | | + + + | Faith Affiliation | 1061 | + + + | Race | Unknown | + + + | Ethnic Group | Unknown | + + + Author + + + | Author | [facility] | | | and [place] | + + + | Organization | [facility] | | [...] [place] | | | | | [address] | | + + + + + | Christy Flaherty | ECON | [address] | | | | | [place] | | | | | [address] | | + + + + + Care Team Providers + +------+ + | Care Tax Associate Name | Role | Phone | [...] + + | 09/16/ | Office | [facility] | [place] | Contusion of right | | 2012 | Visit | OCCUPATIONAL HEALTH | [address] | hand (Primary Dx); | | | | [address] | [facility] | Place of occurrence, | | | | [address] [facility] | [place] [address] | industrial places | | | | [place], [place] | [phone] | and premises | | | | [address] | | | | | | [phone] | | | +--------+---------+ + + + [...] MD - 09/16/2012 5:11 PM PDTSee dictation [id number] christopher d by [place] MD at 09/16/2012 5:12 PM PDTWaring, [place] MD - 09/17/19 13 12:00 AM PDT OCCUPATIONAL MEDICINE [address] [place] [address] [place] [address] FAX: [phone] OFFICE VISIT : 1965 Claim number: [id number] Date of injury: 08/18/2012 Employer: [employer] Guarantor: [...] as of yet. Hollie [place] MD / [facility] JOB #: [id number] signed by [place] MD at 10/08/2012 [...]
--- OUTSIDE RECORDS SUMMARY | ~2019-03-11 | XMS | Encounter Summary ---
Demographics + + + | Address | [address] | | | [place] [address] | + + + | Home Phone [...] [place] | | | | | [address] | | + + + + + Care Team Providers + +------+ + | Care Sign Hanger Name | Role | Phone | + [...] | 2018 | Encounter | Center at [facility] [address] | [address] | | | | | [address] | [address] | | | | | Mailcode: Center | [place], [place] | | | | | [facility] Health and | [address] | | | | | [facility], [address] | [phone] | | | | | [place], [place] | | | | | | [address] | | | | | | [phone] | | | +--------+ + + + [...]
--- OUTSIDE RECORDS SUMMARY | ~2019-03-11 | XMS | Encounter Summary ---
Demographics + + + | Address | [address] | | | [place] [address] | + + + | Home Phone [...] [place] | | | | | [address] | | + + + + + | Christy Flaherty | ECON | [address] | | | | | [place] | | | | | [address] | | + + + + + Care Team Providers + +------+ + | Care Kinder Teacher Name | Role | Phone | + +------+ + | Juan Demarco MD | PCP | | + +------+ + Encounter Details +--------+ + + + + | Date | Type | Department | Care Team | Description | +--------+ + + + + | 03/04/ | Orders Only | [facility] | Conversion | | | 2014 | | INFECTIOUS DISEASE | Transaction, | | | | | [address] | Provider Unknown | | | | | [place], [place] | | | | | | [address] | (Fax) | | | | | [phone] | | | +--------+ + + + [...]
--- OUTSIDE RECORDS SUMMARY | ~2019-03-11 | XMS | Encounter Summary ---
Demographics + + + | Address | [address] | | | [place] [address] | + + + | Home Phone | | + + + | Preferred Language | Unknown | + + + | Marital Status | | + + + | Catholic Affiliation | 1061 | + + + | Race | Unknown | + + + | Ethnic Group | Unknown | + + + Author + + + | Author | [facility] | | | and [place] | + + + | Organization | [facility] | | | [...] [place] | | | | | [address] | | + + + + + | Christy Flaherty | ECON | [address] | | | | | [place] | | | | | [address] | | + + + + + Care Team Providers + +------+ + | Care Feed Preparation Operator Name | Role | Phone | [...] + + | 02/02/ | Telephone | [facility] | Carlos Morales MD | Referral | | 2017 | | GASTROENTEROLOGY | [address], [place] | | | | | [address] [place] | [address] [place], [place] | | | | | [address] [place] | [address] | | | | | [address] | | | | | | [phone] | | | +--------+ + + + [...]
--- OUTSIDE RECORDS SUMMARY | ~2019-03-11 | XMS | Encounter Summary ---
Demographics + + + | Address | [address] | | | [place] [address] | + + + | Home Phone [...] [place] | | | | | [address] | | + + + + + Care Team Providers + +------+ + | Care Fisher Mussel Name | Role | Phone | + +------+ + | Filippo Chen DO | PCP | | + +------+ + Reason for Visit + + + | Reason | Comments | + + + | Pre-Admission | EMU | + + + | Epilepsy | repeater chief; chart review and pre-admin assessment | + + + Encounter Details +--------+ + + + + | Date | Type | Department | Care Team | Description | +--------+ + + + + | 10/01/ | Telephone | Neurology at | [place], | Pre-Admission (EMU | | 2016 | | [facility] & | [address] | ); Epilepsy (RN | | | | Healing [address] | [facility] | Navigator; chart | | | | Hector Cabrera Mailcode: | [place], [place] | review and pre-admin | | | | [address] | [address] | assessment) | | | | Health and Healing, | | | | | | [address] | | | | | | [place], [place] | | | | | | [address] | | | | | | [phone] | | | +--------+ + + + [...]
--- OUTSIDE RECORDS SUMMARY | ~2019-03-11 | XMS | Encounter Summary ---
Demographics + + + | Address | [address] | | | [place] [address] | + + + | Home Phone [...] [place] | | | | | [address] | | + + + + + | Christy Flaherty | ECON | [address] | | | | | [place] | | | | | [address] | | + + + + + Care Team Providers + +------+ + | Care Detective Automobile Section Name | Role | Phone | + +------+ + | Juan Demarco MD | PCP | | + +------+ + Encounter Details +--------+ + + + + | Date | Type | Department | Care Team | Description | +--------+ + + + + | 09/12/ | Hospital | [facility] | [place] | Contusion of right | | 2014 | Encounter | MED CTR WNA XRAY | [address] | hand, subsequent | | | | [address] | [facility] | encounter; Place of | | | | [facility], [place] | [place] [address] | occurrence, | | | | [address] | [phone] | industrial places | | | | [phone] | | and premises | +--------+ + [...] injury recently COMPARISON: September 02, 2012. | [facility] | | FINDINGS:3 views of [...] ST[address] | [address] | [place] | [phone] | | [facility] | | [address] | | | - IMAGING | | | | + + + + + documented in this encounter Visit Diagnoses + + | Diagnosis | + + | Contusion of right hand, subsequent encounter | + + | Place of occurrence, industrial places and premises | + + documented in this encounter"
--- OUTSIDE RECORDS SUMMARY | ~2019-03-11 | XMS | Encounter Summary ---
Demographics + + + | Address | [address] | | | [place] [address] | + + + | Home Phone [...] [place] | | | | | [address] | | + + + + + Care Team Providers + +------+ + | Care Precision Jig Grinder Name | Role | Phone | + +------+ + | Jarvis Willard MD | PCP | | + +------+ + Encounter Details +--------+ + + + + | Date | Type | Department | Care Team | Description | +--------+ + + + + | 04/26/ | Procedure | Radiology/Imaging | | | | 2018 | Pass | Lab at [facility] [address] | | | | | | [address] Cabrera Mailcode: | | | | | | [facility] | | | | | | Health and Healing, | | | | | | [facility] | | | | | | Floor [place], [place] | | | | | | [address] | | | | | | [phone] | | | +--------+ + + + [...]
--- OUTSIDE RECORDS SUMMARY | ~2019-03-11 | XMS | Encounter Summary ---
Demographics + + + | Address | [address] | | | [place] [address] | + + + | Home Phone [...] [place] | | | | | [address] | | + + + + + | Christy Flaherty | ECON | [address] | | | | | [place] | | | | | [address] | | + + + + + Care Team Providers + +------+ + | Care Operation Supervisor Name | Role | Phone | + +------+ + | Juan Demarco MD | PCP | | + +------+ + Encounter Details +--------+ + + + + | Date | Type | Department | Care Team | Description | +--------+ + + + + | 01/18/ | Hospital | [facility] | Conversion | Diagnosis unknown | | 2017 | Encounter | CONVERSION [address] | Transaction, | | | | [address] | Provider Unknown | | | | | [place] | [phone] | | | | | [address] | | | | | | [phone] | | | +--------+ + + + [...]
--- OUTSIDE RECORDS SUMMARY | ~2019-03-11 | XMS | Encounter Summary ---
Demographics + + + | Address | [address] | | | [place] [address] | + + + | Home Phone [...] [place] | | | | | [address] | | + + + + + Care Team Providers + +------+ + | Care Line Rider Name | Role | Phone | + [...] | Referral | Procedural Unit at | [address] | | | | Order | [place] [address] | | | | | [address] | [place], [place] | | | | | Mailcode: UHN83 | [address] | | | | | [address] | [phone] | | | | | [address] [place], [place] | | | | | | [address] | | | | | | [phone] | | | +--------+ + + + [...] + | MRN: | [facility] | | [id number] Date: 04/09/2017Patient Name: Daysi Cook #: | ENDOSCOPY | | [id number] of : 1965CSN: [id number] Type: | | | AmbulatoryRoom: GI 3Procedure: Upper EUSIndications: | | | Abnormal ultrasound of the abdomenProviders: | | | YANNI TILLEY MD (Doctor), LUIS A MAYES RN (Nurse), | | | JYOTI RODRIGUEZ, Motion Picture Set Grip (Motion Picture Set Grip)Referring MD: | | | YANNI TILLEY MDRequesting [...] the procedure. | | | The Olympus [id number] AL5 Linear Echoendoscope #[id number] | | | was introduced through the mouth, and advanced | | | to the second part of duodenum. The | | | Olympus [id number] Endoscope #[id number] | | | was introduced through the [...] stylet | | | was used. A manager mission was present and performed a preliminary | [...] Initiated On: | | | 04/09/2017 1:07 [facility] Letter to: LISA PINON DO | [...] + + | Performing | Address | City[facility] Phone Number | | Organization | | | | + +---------+ + + | [facility] | | | | + +---------+ + + documented in this encounter Visit Diagnoses + + | Diagnosis | + + | Idiopathic chronic pancreatitis (HCC) - Primary | + + documented in this encounter"
--- OUTSIDE RECORDS SUMMARY | ~2019-03-11 | XMS | Encounter Summary ---
Demographics + + + | Address | [address] | | | [place] [address] | + + + | Home Phone [...] [place] | | | | | [address] | | + + + + + Care Team Providers + +------+ + | Care Employment Coordinator Name | Role | Phone | [...] | | | | | Elevated | [place], [place] | Health and | | | | | lipase | [address] | Healing, | | | | | Procedures | Phone: | [address] | | | | | CONSULT TO | [phone] | [place], [place] | | | | | GASTROENTERO | Fax: | [address] | | | | | [place] | [phone] | Phone: | | | | | | | [phone] | | | | | | | Fax: | | | | | | | [phone] | +--------+--------+ + + + + Encounter Details +--------+---------+ + + + | Date | Type | Department | Care Team | Description | +--------+---------+ + + + | 07/29/ | Office | Digestive Health | Taiwo Tilley, | Idiopathic chronic | | 2018 | Visit | Center at [facility] [address] | MD [address] | pancreatitis (HCC) | | | | [address] | [address] | (Primary Dx) | | | | Mailcode: Center | [place], [place] | | | | | for Health and | [address] | | | | | [facility] 2 | [phone] | | | | | [place], [place] | | | | | | [address] | | | | | | [phone] | | | +--------+---------+ + + + [...] might be different fro m the original. [facility] Patient Name: Daysi Flaherty MR#: [id number] : 1965 This is a 52 y/o [...] 6 week with no resolution. He has Caribou 1 stools. He is non-smoker (ex-smoker) and [...] upon disco ntinue. Meloxicam Diarrhea Bowel incontinence Aqrxwrg-Ssj-Qse Reductase Inhibitors Seizures Increased frequency of seizures, [...]
--- OUTSIDE RECORDS SUMMARY | ~2019-03-11 | XMS | Encounter Summary ---
Demographics + + + | Address | [address] | | | [place] [address] | + + + | Home Phone | | + + + | Preferred Language | Unknown | + + + | Marital Status | | + + + | Adventist Affiliation | ASG | + + + | Race | White | + + + | Ethnic Group | Not or | + + + Author + + + | Author | [facility] | + + + | Organization | [facility] | + + + | Address | Unknown | + + + | Phone | Unavailable | + + + Support + + + + + | Name | Relationship | Address | Phone | + + + + + | Christy Flaherty | ECON | [address] | | | | | [place] | | | | | [address] | | + + + + + Care Team Providers + +------+ + | Care Lunch Wagon Operator Name | Role | Phone | + +------+ + | Filippo Chen DO | PCP | | + +------+ + Encounter Details +--------+ + + + + | Date | Type | Department | Care Team | Description | +--------+ + + + + | 04/26/ | Telephone | Digestive Health | Taiwo Tilley, | | | 2017 | | [place] at [facility] [address] | [address] | | | | | [address] | [address] | | | | | Mailcode: Center | [place], [place] | | | | | for Health and | [address] | | | | | [place] [address] | [phone] | | | | | [place], [place] | | | | | | [address] | | | | | | [phone] | | | +--------+ + + + [...]
--- OUTSIDE RECORDS SUMMARY | ~2019-03-11 | XMS | Clinical Summary ---
Demographics + + + | Address | [address] | | | [place] [address] | + + + | Home Phone | | + + + | Preferred Language | Unknown | + + + | Marital Status | | + + + | Advent Affiliation | 1061 | + + + | Race | Unknown | + + + | Ethnic Group | Unknown | + + + Author + + + | Author | [facility] | | | and [place] | + + + | Organization | [facility] | | | [...] [place] | | | | | [address] | | + + + + + | Christy Flaherty | ECON | [address] | | | | | [place] | | | | | [address] | | + + + + + Care Team Providers + +------+ + | Care Engineering Aide Name | Role | Phone | [...] | [employer] | MODA | [id number] | | [phone] | | Medica | | MEDICAID HMO | HEALTH | | 015-Pr | 1 | | id | | | MDCD | | esent | | | | | | [place]MO [place] | | | | | | + +--------+ +--------+ +---------+--------+ | [employer] | BROADS | [id number] | | [phone] | | Indemn | [...] [place] | | | 7 (Home) | [address] | + +--------+ +--------+ + + | Daysi Flaherty | Worker | Self | [birth year] | | [address] | | | [address] | | 1966 | [phone] | [place] [address] | | | | | | 7 (Home) | | + +--------+ +--------+ + + Advance Directives + + + + + | Type | Date Recorded | Patient | Explanation | | | | Heater Mechanic | | + + + + + | Power of | | | | | Service Delivery Director | | | | + + + + + | Advance | 08/10/2014 10:15 | | | | Directive | AM | | | + + + + +
--- OUTSIDE RECORDS SUMMARY | ~2019-03-11 | XMS | Encounter Summary ---
Demographics + + + | Address | [address] | | | [place] [address] | + + + | Home Phone | | + + + | Preferred Language | Unknown | + + + | Marital Status | | + + + | Scientology Affiliation | 1061 | + + + | Race | Unknown | + + + | Ethnic Group | Unknown | + + + Author + + + | Author | [facility] | | | and [place] | + + + | Organization | [facility] | | | [...] [place] | | | | | [address] | | + + + + + | Christy Flaherty | ECON | [address] | | | | | [place] | | | | | [address] | | + + + + + Care Team Providers + +------+ + | Care Visualizer Name | Role | Phone | + +------+ + | Juan Demarco MD | PCP | | + +------+ + Reason for Visit Service/Procedure (Routine) +--------+--------+ + + + + | Status | Reason | Specialty | Diagnoses / | Referred By | Referred To | | | | | Procedures | Contact | Contact | +--------+--------+ + + + + | Closed | | Sleep | Diagnoses | Bautista | [facility] | | | | Medicine | | MD Kimo | Center [address] | | | | | Convulsions/ | [address] | | | | | seizures | [facility] | [place], | | | | | ([facility]) | [address]IVE [address] | [place] [address] | | | | | Procedures | D | Phone: | | | | | EEG CO | [place], | [phone] | | | | | EEG,W/[place] | [place] [address] | Fax: | | | | | & DROWSY | Phone: | [phone] | | | | | RECORD | [phone] | | | | | | | Fax: | | | | | | | [phone] | | +--------+--------+ + + + + Encounter Details +--------+ + + + + | Date | Type | Department | Care Team | Description | +--------+ + + + + | 08/10/ | Hospital | [facility] | Kimo Baum, | Convulsions, | | 2015 | Encounter | MED CTR SLEEP | MD [address] | unspecified | | | | CENTER [address] | [address] | convulsion type | | | | [address] Lorenz | [place] [address] | ([facility]) | | | | [address] | [phone] | | | | | [phone] | | | +--------+ + + + [...] + +--------+ + + + | EEG | Routin | 08/13/2014 | Convulsions, | Results for this | | | e | 7:46 AM | unspecified | procedure are in the | | | | PDT | convulsion type | results section. | | | | | (HCC) | | + +--------+ + + + documented in this encounter Results EEG (08/13/2014 7:46 AM PDT) + + + | Narrative | Performed At | + + + | Butch Cosby MD 08/13/2014 7:46 [facility] | | Services ELECTROENCEPHALOGRAM PATIENT INFORMATION Patient name: | | | Daysi Flaherty Date of : | | | 1965 Referring Physician: Kimo Baum MD Interpreting | | | Physician: Butch Cosby Date/Time of Study: 08/10/14, 1100 | | | TECHNICAL INFORMATION EEG Number: [id number] Electrode Placement: The | | | electroencephalogram was recorded with a Nihon-Nurego EEG | | | recording/reading station, using [...] + | Convulsions, unspecified convulsion type (HCC) | + + documented in this encounter
--- OUTSIDE RECORDS SUMMARY | ~2019-03-11 | XMS | Encounter Summary ---
Demographics + + + | Address | [address] | | | [place] [address] | + + + | Home Phone [...] [place] | | | | | [address] | | + + + + + Care Team Providers + +------+ + | Care Java J2Ee Software Engineer Name | Role | Phone | [...] Records | | 2017 | on | [facility] & | G, DO [address] | Received (Dr. Chen | | | | Healing [address] | [address] | records 03/29 - | | | | [address]ector Cabrera Mailcode: | [place], [place] | 12/03/2016) | | | | [address] [place] [address] | [address] | | | | | Health and Healing, | [phone] | | | | | [place] [address] [facility] | | | | | | [place], [place] | | | | | | [address] | | | | | | [phone] | | | +--------+ + + + [...]
--- OUTSIDE RECORDS SUMMARY | ~2019-03-11 | XMS | Encounter Summary ---
Demographics + + + | Address | [address] | | | [place] [address] | + + + | Home Phone | | + + + | Preferred Language | Unknown | + + + | Marital Status | | + + + | Scientologist Affiliation | 1061 | + + + | Race | Unknown | + + + | Ethnic Group | Unknown | + + + Author + + + | Author | [facility] | | | and [place] | + + + | Organization | [facility] | | [...] [place] | | | | | [address] | | + + + + + | Christy Grande | ECON | [address] | | | | | [place] | | | | | [address] | | + + + + + Care Team Providers + +------+ + | Care Operations Business Partner Name | Role | Phone | + +------+ + | Juan Demarco MD | PCP | | + +------+ + Encounter Details +--------+ + + + + | Date | Type | Department | Care Team | Description | +--------+ + + + + | 01/08/ | Orders Only | [facility] | Jb Mendiola, | | | 2014 | | CARDIOLOGY [place] | [address] | | | | | [address] | [place] [address] | | | | | [place], [place] | [phone] | | | | | [address] | | | | | | [phone] | | | +--------+ + + + [...] | pericardium is normal. MEASUREMENTS AR Dec Solano: | | | 4.15 m/s2 AR Dec Time: 1031.72 ms AR maxP.39 mmHg AR | | | PHT: 299.20 ms AR Vmax: 4.28 m/s Towel Sewer: VIVIANA | | | Authenticated by: Melinda [...] is normal. MEASUREMENTS AR Dec | | Solano: 4.15 m/s2AR Dec Time: 1031.72 msAR maxP.39 mmHgAR PHT: 299.20 msAR | | Vmax: 4.28 m/s Towel Sewer: VIVIANAAuthenticated by: Melinda Garner Date/Time: | | [...] | |MEASUREMENTS | | | |AR Dec Solano: 4.15 m/s2 | |AR Dec Time: 1031.72 ms | |AR maxP.39 mmHg | |AR PHT: 299.20 ms | |AR Vmax: 4.28 m/s | | | |Towel Sewer: VIVIANA | |Authenticated by: Melinda Clifton MD [...]
--- OUTSIDE RECORDS SUMMARY | ~2019-03-11 | XMS | Encounter Summary ---
Demographics + + + | Address | [address] | | | [place] [address] | + + + | Home Phone [...] [place] | | | | | [address] | | + + + + + | Christy Flaherty | ECON | [address] | | | | | [place] | | | | | [address] | | + + + + + Care Team Providers + +------+ + | Care Cannon Pinion Adjuster Name | Role | Phone | + +------+ + | Juan Demarco MD | PCP | | + +------+ + Encounter Details +--------+ + + + + | Date | Type | Department | Care Team | Description | +--------+ + + + + | 05/06/ | Orders Only | [facility] | Conversion | | | 2016 | | INFECTIOUS DISEASE | Transaction, | | | | | [address] | Provider Unknown | | | | | [place], [place] | | | | | | [address] | (Fax) | | | | | [phone] | | | +--------+ + + + [...]
--- OUTSIDE RECORDS SUMMARY | ~2019-03-11 | XMS | Clinical Summary ---
Demographics + + + | Address | [address] | | | [place] [address] | + + + | Home Phone [...] [place] | | | | | [address] | | + + + + + Care Team Providers + +------+ + | Care Commercial Drafter Name | Role | Phone | + +------+ + | Jarvis Willard MD | PCP | | + +------+ + Source Comments ANALI is fully live on both [facility] Ambulatory and [facility] InPatient.[facility] Allergies + + + [...] + + + + + + | Xptyeuy-Pwn-Rgy | Seizures | | 12/17/19 | Increased [...] | 01/27 | | Activ | | qdjhwb-mcxdnxex-drdn | mouth with meals and | tablet [...] capsule by | 60 | 1 | / | | Activ | | oral capsule | mouth two times | capsule | | 06/15 | | e | | | daily. [...] + + | 03/10/ | MyChart | Surgery | Duy Kat, | Next Appt. | | 2018 | Encounter | | MD | | +--------+ + + + + | 02/28/ | MyChart | Gastroenterology | Taiwo Tilley, | RE: Increased | | 2018 | Encounter | | MD | Frequency of Pain | | | | | | and Other Symptoms | +--------+ + + + + | 02/20/ | Hospital | Radiology | Duy Kat, | | | 2018 | Encounter | | MD | | +--------+ + + + + | 02/20/ | Telephone | Surgery | Duy Kat, | Radiology Order | | 2018 | | | MD | | +--------+ + + + + | 02/20/ | Travel | | | | | 2019 | | | | | +--------+ + + + + | 02/09/ | MyChart | Gastroenterology | Taiwo Tilley, | RE: CT Scan order | | 2018 | Encounter | | MD | | +--------+ + + + + | 02/08/ | Office | Surgery | Duy Kat, | 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) | | | | | | (Primary Dx) | +--------+ + + + + | 02/08/ | Office | Gastroenterology | Taiwo Tilley, | 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) | | | | | | (Primary Dx) | +--------+ + + + + | 02/08/ | Lab | Phlebotomy | | Idiopathic chronic | | 2019 | | | | pancreatitis (HCC) | +--------+ + + + + | 02/08/ | Travel | | | | | 2018 | | | | | +--------+ + + + + | 02/07/ | Procedure | Radiology | | | | 2019 | Pass | | | | +--------+ + + + + | 02/07/ | Biscuit [facility]acker | Surgery | Duy Kat, | Idiopathic chronic | | 2018 | | | MD | pancreatitis (HCC) | | | | | | (Primary Dx); Left | | | | | | upper quadrant pain | +--------+ + + + + | 02/06/ | Biscuit Packer | Surgery | Duy Kat, | Idiopathic chronic | | 2018 | | | MD | pancreatitis (HCC) | | | | | | (Primary Dx) | +--------+ + + + + | 01/27/ | Telephone | Gastroenterology | Taiwo Tilley, | Question | | 2018 | | | MD | | +--------+ + + + + | 01/27/ | Telephone | Gastroenterology | Taiwo Tilley, | Erroneous Encounter | | 2019 | | | MD | - Disregard | +--------+ + + + + from [...] + + from Last [address] MULTIPHASE PANCREAS AND PELVIS W [...] | | + +---------+ + + CBC (HEMOGRAM) ONLY (02/08/2019 10:56 [...] | + + + + + | [email or web address] | [address] | [place] [address] | | | [facility] | | | | | HEALTH [...] INTERPRETIVE | 70 - 180 nmol/L | [facility] | | | WHOLE | INFORMATION: Vitamin [...] | | | | | determined by [facility] | | | | | | Laboratories. See | | | | | | Compliance Statement B: | | | | | | [employer]Sojeans/CSPerformed | | | | | | by [address] | | | | | | [place], [place] | | | | | | [address] | | | | | | [phone].[employer]. | | | | | | [facility], Rehan Paris MD, | | | [...] [facility] | [address] | [place], [place] | | | UNIV PTH - INTFC | | [address] | | + + + + + [...] [facility] | | | LAB NAME | Laboratories [address] [place] [address] | | REFERENCE | | | | [place] [address] | | LAB | | | | [phone] | | | | | | | | | | | | [email or web address].[email or web address] | | | | | | | [...] REFERENCE | 1 - 123 mg/dL | [facility] | | | SUBCLASS | INTERVAL: Immunoglobulin | | REG UNIV | | | | G Subclass 4 Access | | PTH - INTFC | | | | complete set of age- | | | | | | and/or gender-specific | | | | | | reference intervals for | | | | | | this test in the [facility] | | | | | | Laboratory Test | | | | | | Directory | | | | | | ([employer]Sojeans).Performed | | | | | | by [address] | | | | | | [place], [facility] [facility] [place] | | | | | | [address] | | | | | | [phone].[employer]. | | | | | | primary children[facility] hospitalRehan MD, | | | | | [...] [facility] | [address] | [place], [place] | | | UNIV PTH - INTFC | | [address] | | + + + + + [...] + | [facility] - | [address] | [place] [address] | | | [place] | | | [...] | + + + + + | [facility] | [address] | [place] [address] | | | JAMISON WORKMAN | JEROME [...] | | | | | determined by [employer] | | | | | | Laboratories. See | | | | | | Compliance Statement B: | | | | | | [employer].Sojeans/CSPerformed | | | | | | by [address] | | | | | | [facility] | | | | | | [address] | | | | | | [phone].[employer]. | | | | | | com, [...] [facility] | [address] | [place], [place] | | | UNIV PTH - INTFC | | [address] | | + + + + + [...] [facility] | | | (CORKY GENOVEVA) | [facility],[address] | | REG UNIV | | | SERUM | [place], [facility] [place] [facility] [place] | | PTH - INTFC | | | | [address] | | | | | | [phone].aruplab. | | | | | | [facility], Rehan Paris MD, | | | [...] B: | | | | | | [facility]/CS | | | | + + + + + + + + | Specimen | + + | Blood - Blood | | (substance) | + + + + + + + | Performing | Address | City/State/Zipcode | Phone Number | | Organization | | | | + + + + + | [facility] | [address] | [place], [place] | | | UNIV PTH - INTFC | | [address] | | + + + + + [...] B: | | | | | | [employer].Sojeans/CSPerformed | | | | | | by [address] | | | | | | [place], [facility] [place] | | | | | | [address] | | | | | | [phone].[employer]. | | | | | | com, [...] [facility] | [address] | [place], [place] | | | UNIV PTH - INTFC | | [address] | | + + + + + [...] | | | LABORATORY | | | [place] | | | SERVICES, | | | [...] + | [facility] | [address] | [place] [address] | | | [facility] | | | | | HEALTH [...] LABORATORY | | | | | | [facility], | | | | | | CORE | | + +-------+ + + + + + | Specimen | + + | Blood - Blood | | (substance) | + + + + + + + | Performing | Address | City/State/Zipcode | Phone Number | | Organization | | | | + + + + + | [email or web address] | [address] | [place] [address] | | | SERVICES, CORE | J[address]OME [...] | + + + + + | [facility] | [address] | [place] [address] | | | SERVICES, CORE | [address] | | | + + + + + FOLATE, SERUM (02/08/2019 10:56 AM PST) + [...] | | | | | | by [address] | | | | | | [place], [facility] [place] | | | | | | [address] | | | | | | [phone].[facility] [employer]. | | | | | | primary children[facility] hospitalRehan MD, | | | | | [...] | + + + + + | [facility] | [address] | [place], [place] | | | UNIV PTH - INTFC | | [address] | | + + + + + [...] + + | [facility] | [address] [facility] [address] | [place] [address] | | | SERVICES, CORE | JEROME [...] | [facility] | | considered for monitoring longterm glycemic control in patients with: | LABORATORY [...] + + + | [facility] | [address] | [place] [address] | | | SERVICES, SPECIAL | JEROME [...] [facility] | [address] | [place] [address] | | | SERVICES, CORE | [address] [...] | + + + + + | [facility] | [address] | [place] [address] | | | SERVICES, CORE | PARK [...] [facility] | [address] | [place] [address] | | | SERVICES, CORE | [address] | | | + + + + + from Last 3 Months Insurance + +--------+ +--------+-------+---------+--------+ | Payer | Benefi | Subscriber | Effect | Phone | Address | Type | | | t Plan | ID | aubrey | | | | | | / | | Dates | | | | | | Group | | | | | | + +--------+ +--------+-------+---------+--------+ | [employer] | [employer]IAN | xxxxxxxx | 5/7/20 | | | Medica | | | [...] | Self | [birth year] | | [address] | | | al/Fam | | 1966 | [phone] | [place] [address] | | | eladio | | | [...]
--- OUTSIDE RECORDS SUMMARY | ~2019-03-11 | XMS | Encounter Summary ---
Demographics + + + | Address | [address] | | | [place] [address] | + + + | Home Phone [...] [place] | | | | | [address] | | + + + + + Care Team Providers + +------+ + | Care Mortgage Consultant Name | Role | Phone | [...] | 2018 | Encounter | Center at [facility] [address] | [address] | | | | | [address] | [place] | | | | | Mailcode: Center | [place], [place] | | | | | [facility] and | [address] | | | | | [facility], [address] | [phone] | | | | | [place], [place] | | | | | | [address] | | | | | | [phone] | | | +--------+ + + + [...]
--- OUTSIDE RECORDS SUMMARY | ~2019-03-11 | XMS | Encounter Summary ---
Demographics + + + | Address | [address] | | | [place] [address] | + + + | Home Phone [...] [place] | | | | | [address] | | + + + + + Care Team Providers + +------+ + | Care Rubber Turner Name | Role | Phone | + +------+ + | Jarvis Willard MD | PCP | | + +------+ + Encounter Details +--------+--------+ + + + | Date | Type | Department | Care Team | Description | +--------+--------+ + + + | 02/20/ | Travel [...]
--- OUTSIDE RECORDS SUMMARY | ~2019-03-11 | XMS | Encounter Summary ---
Demographics + + + | Address | [address] | | | [place] [address] | + + + | Home Phone [...] [place] | | | | | [address] | | + + + + + Care Team Providers + +------+ + | Care Digital Account Supervisor Name | Role | Phone | [...] | | | | | Elevated | [place], [place] | Health and | | | | | lipase | [address] | Healing, | | | | | Procedures | Phone: | [address] | | | | | CONSULT TO | [phone] | [place], [place] | | | | | GASTROENTERO | Fax: | [address] | | | | | [place] | [phone] | Phone: | | | | | | | [phone] | | | | | | | Fax: | | | | | | | [phone] | +--------+--------+ + + + + Encounter [...] | | | | Mailcode: Center | [place], [place] | | | | | for Health and | [address] | | | | | [facility] | [phone] | | | | | [place], [place] | | | | | | [address] | | | | | | [phone] | | | +--------+---------+ + + + [...] [facility] Patient Name: Daysi Flaherty MR#: [id number] : 1965 This is a 52 y/o [...] 6 week with no resolution. He has [place] 1 stools. He is non-smoker (ex-smoker) and [...] upon disco ntinue. Meloxicam Diarrhea Bowel incontinence Wgmgsoy-Dld-Kfp Reductase Inhibitors Seizures Increased frequency of seizures, [...]
--- OUTSIDE RECORDS SUMMARY | ~2019-03-11 | XMS | Encounter Summary ---
Demographics + + + | Address | [address] | | | [place] [address] | + + + | Home Phone [...] [place] | | | | | [address] | | + + + + + | Christy Flaherty | ECON | [address] | | | | | [place] | | | | | [address] | | + + + + + Care Team Providers + +------+ + | Care Employee Health Nurse Name | Role | Phone | [...] + + | 10/28/ | Office | [facility] | [place] | Contusion of right | | 2012 | Visit | [facility] | [address] | hand (Primary Dx); | | | | [address] | [facility] | Soft tissue mass; | | | | [address] [facility] | [place] [address] | Place of occurrence, | | | | [place], [place] | [phone] | industrial places | | | | [address] | | and premises | | | | [phone] | | | +--------+---------+ + + + [...] MD - 10/28/2012 8:46 AM PDTSee dictation [id number] christopher d by [place] MD at 10/28/2012 8:47 AM [place] MD - 10/29/19 13 12:00 AM PDT OCCUPATIONAL MEDICINE [address] [place] [address] [place] [address] FAX: [phone] OFFICE VISIT BACKGROUND INFORMATION Claim No.: [id number] Date of injury: 08/18/2012 Employer: [employer] Guarantor: [...] Hollie Brooks MD / SB JOB #: [id number] signed by [place] MD at 10/28/2012 [...]
--- OUTSIDE RECORDS SUMMARY | ~2019-03-11 | XMS | Encounter Summary ---
Demographics + + + | Address | [address] | | | [place] [address] | + + + | Home Phone | | + + + | Preferred Language | Unknown | + + + | Marital Status | | + + + | Latter Day Affiliation | 1061 | + + + | Race | Unknown | + + + | Ethnic Group | Unknown | + + + Author + + + | Author | [facility] | | | and [place] | + + + | Organization | [facility] | | | [...] [place] | | | | | [address] | | + + + + + | Christy Flaherty | ECON | [address] | | | | | [place] | | | | | [address] | | + + + + + Care Team Providers + +------+ + | Care Bootmaker Name | Role | Phone | + +------+ + | Juan Demarco MD | PCP | | + +------+ + Encounter Details +--------+ + + + + | Date | Type | Department | Care Team | Description | +--------+ + + + + | 01/21/ | Orders Only | [facility] | Conversion | | | 2014 | | INFECTIOUS DISEASE | Transaction, | | | | | [address] | Provider Unknown | | | | | [place], [place] | | | | | | [address] | (Fax) | | | | | [phone] | | | +--------+ + + + [...] + + + | RED CELL | 5.19 | 10 | EXTERNAL | | | COUNT | | | LAB | | + +-------+ + + + | Hgb | 15.6 | g/dL | EXTERNAL | [...]
--- OUTSIDE RECORDS SUMMARY | ~2019-03-11 | XMS | Encounter Summary ---
Demographics + + + | Address | [address] | | | [place] [address] | + + + | Home Phone [...] [place] | | | | | [address] | | + + + + + Care Team Providers + +------+ + | Care Ventilating Equipment Installer Name | Role | Phone | [...] changes | | 2016 | Encounter | [facility] & | | | | | | Healing [address] | | | | | | [address] Mailcode: | | | | | | [facility] | | | | | | Health and Healing, | | | | | | Building | | | | | | [place], [place] | | | | | | [address] | | | | | | [phone] | | | +--------+ + + + [...]
--- OUTSIDE RECORDS SUMMARY | ~2019-03-11 | XMS | Encounter Summary ---
Demographics + + + | Address | [address] | | | [place] [address] | + + + | Home Phone [...] [place] | | | | | [address] | | + + + + + | Christy Flaherty | ECON | [address] | | | | | [place] | | | | | [address] | | + + + + + Care Team Providers + +------+ + | Care Plugging Machine Operator Name | Role | Phone | + +------+ + PCP | Unavailable | + +------+ + Encounter Details +--------+ + + + + | Date | Type | Department | Care Team | Description | +--------+ + + + + | 05/29/ | Hospital | [facility] | | | | 2007 | Encounter | MED CTR XRAY [address] | | | | | | [place] | | | | | | [place] [address] | | | | | | [phone] | | | +--------+ + + + [...]
--- OUTSIDE RECORDS SUMMARY | ~2019-03-11 | XMS | Encounter Summary ---
Demographics + + + | Address | [address] | | | [place] [address] | + + + | Home Phone | | + + + | Preferred Language | Unknown | + + + | Marital Status | | + + + | Latter-Day Affiliation | 1061 | + + + | Race | Unknown | + + + | Ethnic Group | Unknown | + + + Author + + + | Author | [facility] | | | and [place] | + + + | Organization | [facility] | | | [...] [place] | | | | | [address] | | + + + + + | Christy Flaherty | ECON | [address] | | | | | [place] | | | | | [address] | | + + + + + Care Team Providers + +------+ + | Care Optometrist Owner Name | Role | Phone | + +------+ + | Juan Demarco MD | PCP | | + +------+ + Encounter Details +--------+ + + + + | Date | Type | Department | Care Team | Description | +--------+ + + + + | 07/25/ | Orders Only | [facility] | Conversion | | | 2015 | | INFECTIOUS DISEASE | Transaction, | | | | | [address] | Provider Unknown | | | | | [place], [place] | | | | | | [address] | (Fax) | | | | | [phone] | | | +--------+ + + + [...]
--- OUTSIDE RECORDS SUMMARY | ~2019-03-11 | XMS | Encounter Summary ---
Demographics + + + | Address | [address] | | | [place] [address] | + + + | Home Phone [...] [place] | | | | | [address] | | + + + + + Care Team Providers + +------+ + | Care Steam Press Tender Name | Role | Phone | [...] | | 2018 | | Center at [facility] [address] | [address] | [place]) | | | | [address] | [address] | | | | | Mailcode: Center | [place], [place] | | | | | for Health and | [address] | | | | | [place] [address] | [phone] | | | | | [place], [place] | | | | | | [address] | | | | | | [phone] | | | +--------+ + + + [...]
--- OUTSIDE RECORDS SUMMARY | ~2019-03-11 | XMS | Encounter Summary ---
Demographics + + + | Address | [address] | | | [place] [address] | + + + | Home Phone [...] [place] | | | | | [address] | | + + + + + Care Team Providers + +------+ + | Care Dope House Operator Helper Name | Role | Phone [...] MD | | | 2015 | | [facility] & | [address] | | | | | Healing [address] | [place], [place] | | | | | [address] Mailcode: | [address] | | | | | [facility] for | [phone] | | | | | Health and Healing, | | | | | | | | | | | | Floor [place], [place] | | | | | | [address] | | | | | | [phone] | | | +--------+ + + + [...]
--- OUTSIDE RECORDS SUMMARY | ~2019-03-11 | XMS | Encounter Summary ---
Demographics + + + | Address | [address] | | | [place] [address] | + + + | Home Phone [...] Author | [facility] | + + + | Organization | [facility] | + + + | Address | Unknown | + + + | Phone | Unavailable | + + + Support + + + + + | Name | Relationship | Address | Phone | + + + + + | Christy Flaherty | ECON | [address] | | | | | [place] | | | | | [address] | | + + + + + Care Team Providers + +------+ + | Care Security Control Assessor Name | Role | Phone | + +------+ + | Filippo Chen DO | PCP | | + +------+ + Encounter Details +--------+ + + + + | Date | Type | Department | Care Team | Description | +--------+ + + + + | 09/25/ | Telephone | Neurology at | [place], | | | 2015 | | [facility] & | | | | | | Healing [address] | | | | | | [address] Mailcode: | | | | | | [facility] | | | | | | Health and Healing, | | | | | | Building | | | | | | Floor [place], [place] | | | | | | [address] | | | | | | [phone] | | | +--------+ + + + [...]
--- OUTSIDE RECORDS SUMMARY | ~2019-03-11 | XMS | Encounter Summary ---
Demographics + + + | Address | [address] | | | [place] [address] | + + + | Home Phone | | + + + | Preferred Language | Unknown | + + + | Marital Status | | + + + | Moravian Affiliation | 1061 | + + + | Race | Unknown | + + + | Ethnic Group | Unknown | + + + Author + + + | Author | [facility] | | | and [place] | + + + | Organization | [facility] | | | [...] [place] | | | | | [address] | | + + + + + | Christy Flaherty | ECON | [address] | | | | | [place] | | | | | [address] | | + + + + + Care Team Providers + +------+ + | Care Staple Processing Machine Operator Name | Role | Phone | + +------+ + | Juan Demarco MD | PCP | | + +------+ + Encounter Details +--------+ + + + + | Date | Type | Department | Care Team | Description | +--------+ + + + + | 12/19/ | Hospital | [facility] | Conversion | | | 2015 | [facility] | [facility] | Transaction, | | | | | OUTPATIENT | Provider Unknown | | | | | PROCEDURES [address] | | [address] | (Fax) | | | | | [place], [place] | | | | | | [address] | | | | | | [phone] | | | +--------+ + + + [...]
--- OUTSIDE RECORDS SUMMARY | ~2019-03-11 | XMS | Encounter Summary ---
Demographics + + + | Address | [address] | | | [place] [address] | + + + | Home Phone [...] [place] | | | | | [address] | | + + + + + | Christy Flaherty | ECON | [address] | | | | | [place] | | | | | [address] | | + + + + + Care Team Providers + +------+ + | Care Testing Director Name | Role | Phone | + +------+ + | Juan Demarco MD | PCP | | + +------+ + Encounter Details +--------+ + + + + | Date | Type | Department | Care Team | Description | +--------+ + + + + | 01/22/ | Orders Only | [facility] | Conversion | | | 2016 | | INFECTIOUS DISEASE | Transaction, | | | | | [address] | Provider Unknown | | | | | [place], [place] | | | | | | [phone] | (Fax) | | | | | [phone] | | | +--------+ + + + [...]
--- OUTSIDE RECORDS SUMMARY | ~2019-03-11 | XMS | Encounter Summary ---
Demographics + + + | Address | [address] | | | [place] [address] | + + + | Home Phone [...] [place] | | | | | [address] | | + + + + + Care Team Providers + +------+ + | Care Public Health Sanitarian Technician Name | Role | Phone | [...] To Surgery | | 2017 | | [place] at [facility] [address] | | - General | | | | [address] | | | | | | Mailcode: Center | | | | | | for Health and | | | | | | [facility] | | | | | | [place], [place] | | | | | | [address] | | | | | | [phone] | | | +--------+ + + + [...]
--- OUTSIDE RECORDS SUMMARY | ~2019-03-11 | XMS | Encounter Summary ---
Demographics + + + | Address | [address] | | | [place] [address] | + + + | Home Phone [...] [place] | | | | | [address] | | + + + + + Care Team Providers + +------+ + | Care Founder / Ceo Name | Role | Phone | + [...] | | | | | | [address] [place], [place] | | | | | | [address] | | | | | | [phone] | | | +--------+ + + + [...] perfume, lotions or powder. Remove any nail sinhala from at least one fingernail. Do not [...] Time: Someone from your surgeon's office or [facility] will provide you with information regarding your [...] it is after office hours, call the [facility] fagoting machine operator at [phone] and ask them to page your doc tor. documented in this encounter Plan of Treatment Not on filedocumented as of this encounter Visit Diagnoses Not on filedocumented in this encounter"
--- OUTSIDE RECORDS SUMMARY | ~2019-03-11 | XMS | Encounter Summary ---
Demographics + + + | Address | [address] | | | [place] [address] | + + + | Home Phone [...] [place] | | | | | [address] | | + + + + + | Christy Flaherty | ECON | [address] | | | | | [place] | | | | | [address] | | + + + + + Care Team Providers + +------+ + | Care Bulk Filler Name | Role | Phone | + +------+ + | Juan Demarco MD | PCP | | + +------+ + Encounter Details +--------+ + + + + | Date | Type | Department | Care Team | Description | +--------+ + + + + | 03/07/ | Orders Only | [facility] | Conversion | | | 2014 | | INFECTIOUS DISEASE | Transaction, | | | | | [address] | Provider Unknown | | | | | [place], [place] | | | | | | [address] | (Fax) | | | | | [phone] | | | +--------+ + + + [...]
--- OUTSIDE RECORDS SUMMARY | ~2019-03-11 | XMS | Encounter Summary ---
Demographics + + + | Address | [address] | | | [place] [address] | + + + | Home Phone [...] [place] | | | | | [address] | | + + + + + | Christy Flaherty | ECON | [address] | | | | | [place] | | | | | [address] | | + + + + + Care Team Providers + +------+ + | Care Processor Grain Name | Role | Phone | + [...] Provider Unknown | | | | | [place], [place] | | | | | | [address] | (Fax) | | | | | [phone] | | | +--------+ + + + [...]
--- OUTSIDE RECORDS SUMMARY | ~2019-03-11 | XMS | Encounter Summary ---
Demographics + + + | Address | [address] | | | [place] [address] | + + + | Home Phone [...] [place] | | | | | [address] | | + + + + + Care Team Providers + +------+ + | Care Freight Rate Specialist Name | Role | Phone | [...] and | | 2016 | Encounter | [facility] | G, DO [address] | Medications | | | | Healing [address] | [address] | | | | | Hector Cabrera Mailcode: | [place], [place] | | | | | [facility] | [address] | | | | | Health and Healing, | [phone] | | | | | [facility] | | | | | | Floor [place], [place] | | | | | | [address] | | | | | | [phone] | | | +--------+ + + + [...]
--- OUTSIDE RECORDS SUMMARY | ~2019-03-11 | XMS | Encounter Summary ---
Demographics + + + | Address | [address] | | | [place] [address] | + + + | Home Phone [...] [place] | | | | | [address] | | + + + + + Care Team Providers + +------+ + | Care Laundry Agent Name | Role | Phone | [...] | | | | | pancreatitis | [facility] | [facility] | | | | | (HCC) | Rd | Rd [place], | | | | | Procedures | [place], [place] | [place] | | | | | CONSULT TO | [address] | [address] | | | | | SURGERY - | Phone: | Phone: | | | | | GENERAL | [phone] | [phone] | | | | | | Fax: | Fax: | | | | | | [phone] | [phone] | + +--------+ + + + + [...] | chronic | [address] | [address] | | | | | pancreatitis | [address] | Rd | | | | | (HCC) | Rd | Mailcode: | | | | | Procedures | [place], [place] | [address] | | | | | MR ABDOMEN W | [address] | [place] | | | | | MRCP WITH | Phone: | Research | | | | | SECRETIN WWO | [phone] | Center | | | | | [place] MRI, | Fax: | [place], [place] | | | | | ABDOMEN, | [phone] | [address] | | | | | COMBO [place] 3D | | Phone: | | | | | RNDR W/O | | [phone] | | | | | PSTPRCSS | | Fax: | | | | | | | [phone] | + +--------+ + + + + Encounter Details +--------+ + + + + | Date | Type | Department | Care Team | Description | +--------+ + + + + | 10/28/ | Environmental Control Administrator | Digestive Health | Taiwo Tilley, | 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
--- OUTSIDE RECORDS SUMMARY | ~2019-03-11 | XMS | Encounter Summary ---
Demographics + + + | Address | [address] | | | [place] [address] | + + + | Home Phone [...] [place] | | | | | [address] | | + + + + + | Christy Flaherty | ECON | [address] | | | | | [place] | | | | | [address] | | + + + + + Care Team Providers + +------+ + | Care Machine Greaser Name | Role | Phone | + +------+ + | Juan Demarco MD | PCP | | + +------+ + Encounter Details +--------+ + + + + | Date | Type | Department | Care Team | Description | +--------+ + + + + | 03/07/ | Orders Only | [facility] | Conversion | | | 2014 | | INFECTIOUS DISEASE | Transaction, | | | | | [address] | Provider Unknown | | | | | [place], [place] | | | | | | [address] | (Fax) | | | | | [phone] | | | +--------+ + + + [...]
--- OUTSIDE RECORDS SUMMARY | ~2019-03-11 | XMS | Encounter Summary ---
Demographics + + + | Address | [address] | | | [place] [address] | + + + | Home Phone [...] [place] | | | | | [address] | | + + + + + | Christy Flaherty | ECON | [address] | | | | | [place] | | | | | [address] | | + + + + + Care Team Providers + +------+ + | Care Iron Molder Helper Name | Role | Phone | + +------+ + | Juan Demarco MD | PCP | | + +------+ + Encounter Details +--------+ + + + + | Date | Type | Department | Care Team | Description | +--------+ + + + + | 06/23/ | Orders Only | [facility] | Conversion | | | 2016 | | INFECTIOUS DISEASE | Transaction, | | | | | [address] | Provider Unknown | | | | | [place], [place] | | | | | | [address] | (Fax) | | | | | [phone] | | | +--------+ + + + [...] + | RED CELL | 5.19 | 4.3 - 5.7 10 | EXTERNAL | | | COUNT | | | LAB | | + + + + + + | Hgb | 16.6 | 13.5 - 18.0 | [...]
--- OUTSIDE RECORDS SUMMARY | ~2019-03-11 | XMS | Encounter Summary ---
Demographics + + + | Address | [address] | | | [place] [address] | + + + | Home Phone [...] [place] | | | | | [address] | | + + + + + | Christy Flaherty | ECON | [address] | | | | | [place] | | | | | [address] | | + + + + + Care Team Providers + +------+ + | Care Tower Foreman Name | Role | Phone | + +------+ + PCP | Unavailable | + +------+ + Encounter Details +--------+ + + + + | Date | Type | Department | Care Team | Description | +--------+ + + + + | 11/20/ | Hospital | [facility] | | | | 2003 | Encounter | [facility] GENER[facility] OP | | | | | | CONV DEPT [address] | | | | | | [place], | | | | | | [place] [address] | | | | | | [phone] | | | +--------+ + + + [...]
--- OUTSIDE RECORDS SUMMARY | ~2019-03-11 | XMS | Encounter Summary ---
Demographics + + + | Address | [address] | | | [place] [address] | + + + | Home Phone | | + + + | Preferred Language | Unknown | + + + | Marital Status | | + + + | Advent Affiliation | ASG | + + + [...] [place] | | | | | [address] | | + + + + + Care Team Providers + +------+ + | Care Packing Room Worker Name | Role | Phone | [...] | | | | with complex | [place], [place] | [place] | | | | | partial | [address] | [address] | | | | | seizures, | Phone: | Phone: | | | | | intractable, | [phone] | [phone] | | | | | without | Fax: | Fax: | | | | | status | [phone] | [phone] | | | | | epilepticus | | | | | | | ([facility]) | | | | | | | [...] | | intracranial | [address] | [place], [place] | | | | | structures | [place], | [address] | | | | | INS: [place] | [place] [address] | Phone: | | | | | | Phone: | [phone] | | | | | | [phone] | Fax: | | | | | | Fax: | [phone] | | | | | | [phone] | | +--------+ + + + + + Encounter Details +--------+---------+ + + + | Date | Type | Department | Care Team | Description | +--------+---------+ + + + | 07/01/ | Office | Neurosurgery at | Syvlia Triana MD | 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 [place] | complex partial | | | | [facility] | [address] | seizures, | | | | and Healing, | [phone] | intractable, without | | | | Building [address] | | status epilepticus | | | | Floor [place], [place] | | ([facility]) (Primary Dx) | | | | [address] | | | | | | [phone] | | | +--------+---------+ + + + [...] to pinprick and light touch. Cerebellar: Normal azqyiq-ad-fhtj, and rapid alternating movements. Gait: Normal. Tandem [...]
--- OUTSIDE RECORDS SUMMARY | ~2019-03-11 | XMS | Encounter Summary ---
Demographics + + + | Address | [address] | | | [place] [address] | + + + | Home Phone [...] [place] | | | | | [address] | | + + + + + Care Team Providers + +------+ + | Care Wash House Worker Name | Role | Phone | [...] Encounter | Services [address] MD [address] | | | | | [address] | [address] | | | | | [place], [place] | [place], [place] | | | | | [address] | [address] | | | | | | [phone] | | | | | | | [...]
--- OUTSIDE RECORDS SUMMARY | ~2019-03-11 | XMS | Encounter Summary ---
Demographics + + + | Address | [address] | | | [place] [address] | + + + | Home Phone [...] [place] | | | | | [address] | | + + + + + Care Team Providers + +------+ + | Care Senior Java Software Engineer Name | Role | Phone | + +------+ + | Filippo Chen DO | PCP | | + +------+ + Encounter Details +--------+ + + + + | Date | Type | Department | Care Team | Description | +--------+ + + + + | 12/16/ | Documentati | Neurology at | Amador Mayorga, | | | 2016 | on | [facility] | FIRE PREVENTION CAPTAIN [address] | | | | | Healing [address] | [address] | | | | | Hector Cabrera Mailcode: | [place], [place] | | | | | [facility] | [address] | | | | | Health and Healing, | [phone] | | | | | [facility] | | | | | | Floor [place], [place] | | | | | | [address] | | | | | | [phone] | | | +--------+ + + + [...]
--- OUTSIDE RECORDS SUMMARY | ~2019-03-11 | XMS | Encounter Summary ---
Demographics + + + | Address | [address] | | | [place] [address] | + + + | Home Phone [...] [place] | | | | | [address] | | + + + + + Care Team Providers + +------+ + | Care Director Airport Operations Name | Role | Phone | + +------+ + | Filippo Chen DO | PCP | | + +------+ + Encounter Details +--------+ + + + + | Date | Type | Department | Care Team | Description | +--------+ + + + + | 01/08/ | Telephone | Neurology at | Anthony De La O MD | | | 2015 | | [facility] & | [address] | | | | | Healing [address] | [place], [place] | | | | | [address] Mailcode: | [address] | | | | | [facility] for | [phone] | | | | | Health and Healing, | | | | | | | | | | | | Floor [place], [place] | | | | | | [address] | | | | | | [phone] | | | +--------+ + + + [...]
--- OUTSIDE RECORDS SUMMARY | ~2019-03-11 | XMS | Encounter Summary ---
Demographics + + + | Address | [address] | | | [place] [address] | + + + | Home Phone [...] [place] | | | | | [address] | | + + + + + Care Team Providers + +------+ + | Care Automotive Parts Person Name | Role | Phone | + [...]
--- OUTSIDE RECORDS SUMMARY | ~2019-03-11 | XMS | Encounter Summary ---
Demographics + + + | Address | [address] | | | [place] [address] | + + + | Home Phone | | + + + | Preferred Language | Unknown | + + + | Marital Status | | + + + | Buddhist Affiliation | 1061 | + + + [...] [place] | | | | | [address] | | + + + + + | Christy Flaherty | ECON | [address] | | | | | [place] | | | | | [address] | | + + + + + Care Team Providers + +------+ + | Care Insurance Policy Clerk Name | Role | Phone | + +------+ + | Juan Demarco MD | PCP | | + +------+ + Encounter Details +--------+ + + + + | Date | Type | Department | Care Team | Description | +--------+ + + + + | 01/07/ | Orders Only | [facility] | Conversion | | | 2014 | | INFECTIOUS DISEASE | Transaction, | | | | | [address] | Provider Unknown | | | | | [place], [place] | | | | | | [address] | (Fax) | | | | | [phone] | | | +--------+ + + + [...] | + +---------+ + + + | RED CELL | 5.13 | 10 | EXTERNAL | | | COUNT | | | LAB | | + +---------+ + + + | Hgb | 15.5 | g/dL | EXTERNAL | [...]
--- OUTSIDE RECORDS SUMMARY | ~2019-03-11 | XMS | Encounter Summary ---
Demographics + + + | Address | [address] | | | [place] [address] | + + + | Home Phone [...] [place] | | | | | [address] | | + + + + + | Christy Flaherty | ECON | [address] | | | | | [place] | | | | | [address] | | + + + + + Care Team Providers + +------+ + | Care Cisco Unified Communications Engineer Name | Role | Phone | + +------+ + | Juan Demarco MD | PCP | | + +------+ + Encounter Details +--------+ + + + + | Date | Type | Department | Care Team | Description | +--------+ + + + + | 12/19/ | Hospital | [facility] | Conversion | | | 2015 | [facility] | [facility] | Transaction, | | | | | OUTPATIENT | Provider Unknown | | | | | PROCEDURES [address] | | | | [address] | (Fax) | | | | | [place], [place] | | | | | | [address] | | | | | | [phone] | | | +--------+ + + + [...]
--- OUTSIDE RECORDS SUMMARY | ~2019-03-11 | XMS | Encounter Summary ---
Demographics + + + | Address | [address] | | | [place] [address] | + + + | Home Phone | | + + + | Preferred Language | Unknown | + + + | Marital Status | | + + + | Jewish Affiliation | 1061 | + + + | Race | Unknown | + + + | Ethnic Group | Unknown | + + + Author + + + | Author | [facility] | | | and [place] | + + + | Organization | [facility] | | | [...] [place] | | | | | [address] | | + + + + + | Christy Flaherty | ECON | [address] | | | | | [place] | | | | | [address] | | + + + + + Care Team Providers + +------+ + | Care Logger Driving Horses Name | Role | Phone | + +------+ + | Juan Demarco MD | PCP | | + +------+ + Encounter Details +--------+ + + + + | Date | Type | Department | Care Team | Description | +--------+ + + + + | 01/21/ | Orders Only | [facility] | Conversion | | | 2014 | | INFECTIOUS DISEASE | Transaction, | | | | | [address] | Provider Unknown | | | | | [place], [place] | | | | | | [address] | (Fax) | | | | | [phone] | | | +--------+ + + + [...]
--- OUTSIDE RECORDS SUMMARY | ~2019-03-11 | XMS | Encounter Summary ---
Demographics + + + | Address | [address] | | | [place] [address] | + + + | Home Phone [...] [place] | | | | | [address] | | + + + + + Care Team Providers + +------+ + | Care Chemical Worker Name | Role | Phone | [...] | | | | [address] | [place], [place] | for Health | | | | | [place] | [address] | and Healing, | | | | | [address] SCAN OF | Phone: | Building 1, | | | | | ABDOMEN | [phone] | 3rd Floor | | | | | COMBO | Fax: | [place], [place] | | | | | | [phone] | [address] | | | | | | | Phone: | | | | | | | [phone] | | | | | | | Fax: | | | | | | | [phone] | +--------+--------+ + + + + Reason [...] | | | | [address] | [place], [place] | for Health | | | | | [place] | [address] | and Healing, | | | | | CT SCAN OF | Phone: | Building 1, | | | | | ABDOMEN | [phone] | 3rd Floor | | | | | COMBO | Fax: | [place], [place] | | | | | | [phone] | [address] | | | | | | | Phone: | | | | | | | [phone] | | | | | | | Fax: | | | | | | | [phone] | +--------+--------+ + + + + Encounter Details +--------+ + + + + | Date | Type | Department | Care Team | Description | +--------+ + + + + | 03/11/ | Hospital | Radiology/Imaging | Paras Baker | | | 2017 | Encounter | Lab at [facility] [address] | MD nAia [address] [facility] | | | | | [place] Mailcode: | [address] | | | | | [address] for | [place], [place] | | | | | Health and Healing, | [address] | | | | | Building 1, 3rd | [phone] | | | | | Floor [place], [place] | | | | | | [address] | | | | | | [phone] | | | +--------+ + + + [...]
--- OUTSIDE RECORDS SUMMARY | ~2019-03-11 | XMS | Encounter Summary ---
Demographics + + + | Address | [address] | | | [place] [address] | + + + | Home Phone | | + + + | Preferred Language | Unknown | + + + | Marital Status | | + + + | Mormonism Affiliation | 1061 | + + + [...] [place] | | | | | [address] | | + + + + + | Christy Grande | ECON | [address] | | | | | [place] | | | | | [address] | | + + + + + Care Team Providers + +------+ + | Care Senior Pastor Name | Role | Phone | + +------+ + | Juan Demarco MD | PCP | | + +------+ + Encounter Details +--------+ + + + + | Date | Type | Department | Care Team | Description | +--------+ + + + + | 01/08/ | Orders Only | [facility] | Jb Mendiola, | | | 2014 | | CARDIOLOGY [place] | [address] | | | | | [address] | [place] [address] | | | | | [place], [place] | [phone] | | | | | [address] | | | | | | [phone] | | | +--------+ + + + [...] | pericardium is normal. MEASUREMENTS AR Dec [place]: | | | 4.15 m/s2 AR Dec Time: 1031.72 ms AR maxP.39 mmHg AR | | | PHT: 299.20 ms AR Vmax: 4.28 m/s Transport Rn: [email or web address] | | | Authenticated by: Melinda [...] is normal. MEASUREMENTS AR Dec | | [place]: 4.15 m/s2AR Dec Time: 1031.72 msAR maxP.39 mmHgAR PHT: 299.20 msAR | | Vmax: 4.28 m/s Transport Rn: VIVIANAAuthenticated by: Melinda Garner Date/Time: | | [...] | |MEASUREMENTS | | | |AR Dec [place]: 4.15 m/s2 | |AR Dec Time: 1031.72 ms | |AR maxP.39 mmHg | |AR PHT: 299.20 ms | |AR Vmax: 4.28 m/s | | | |Transport Rn: VIVIANA | |Authenticated by: Melinda Clifton MD [...]
--- OUTSIDE RECORDS SUMMARY | ~2019-03-11 | XMS | Encounter Summary ---
Demographics + + + | Address | [address] | | | [place] [address] | + + + | Home Phone [...] [place] | | | | | [address] | | + + + + + Care Team Providers + +------+ + | Care Receptionist Secretary Name | Role | Phone | [...] | | 2018 | | Center at [facility] [address] | [address] | pancreatitis (HCC) | | | | [address] | [address] | | | | | Mailcode: Center | [place], [place] | | | | | for Health and | [address] | | | | | Healing, [address] | [phone] | | | | | [place], [place] | | | | | | [address] | | | | | | [phone] | | | +--------+ + + + [...] | | LAB | | | | [place] [address] | | | | | | | [...]
--- OUTSIDE RECORDS SUMMARY | ~2019-03-11 | XMS | Encounter Summary ---
Demographics + + + | Address | [address] | | | [place] [address] | + + + | Home Phone [...] [place] | | | | | [address] | | + + + + + Care Team Providers + +------+ + | Care Learning Coach Name | Role | Phone | [...] | 2017 | | [place] at [facility] [address] | [address] | | | | | [address] | [address] | | | | | Mailcode: [place] | [place], [place] | | | | | for Health and | [address] | | | | | [facility] 2 | [phone] | | | | | [place], [place] | | | | | | [address] | | | | | | [phone] | | | +--------+ + + + [...]
--- OUTSIDE RECORDS SUMMARY | ~2019-03-11 | XMS | Encounter Summary ---
Demographics + + + | Address | [address] | | | [place] [address] | + + + | Home Phone [...] [place] | | | | | [address] | | + + + + + Care Team Providers + +------+ + | Care Compressed Yeast Supervisor Name | [...] | | | [address] | [address] | | | | | Mailcode: [facility] | | | | | | [address] | | | | | | [address] [place], [place] | | | | | | [address] | | | | | | [phone] | | | +--------+ + + + [...]
--- OUTSIDE RECORDS SUMMARY | ~2019-03-11 | XMS | Encounter Summary ---
Demographics + + + | Address | [address] | | | [place] [address] | + + + | Home Phone | | + + + | Preferred Language | Unknown | + + + | Marital Status | | + + + | Scientology Affiliation | ASG | + + + [...] + + + + + | Christy Falherty | ECON | [address] | | | | | [place] | | | | | [address] | | + + + + + Care Team Providers + +------+ + | Care Sleep Technician Name | Role | Phone | + +------+ + | Jarvis Willard MD | PCP | | + +------+ + Encounter Details +--------+ + + + + | Date | Type | Department | Care Team | Description | +--------+ + + + + | 04/27/ | Documentati | LAB CORE [address] | Taiwo Tilley, | | | 2018 | on | [address] | [address] | | | | | [place], [place] | [address] | | | | | [address] | [place], [place] | | | | | [phone] | [address] | | | | | | [phone] | | | | | | | [...]
--- OUTSIDE RECORDS SUMMARY | ~2019-03-11 | XMS | Encounter Summary ---
Demographics + + + | Address | [address] | | | [place] [address] | + + + | Home Phone [...] [place] | | | | | [address] | | + + + + + Care Team Providers + +------+ + | Care Problem Manager Name | Role | Phone | [...] Records | | 2017 | on | [facility] & | G, DO [address] | Received (Dr. Chen | | | | Healing [address] | [address] | records 03/29 - | | | | [address] Mailcode: | [place], [place] | 12/03/2016) | | | | [address] [place] [address] | [address] | | | | | Health and Healing, | [phone] | | | | | [place] [address] [facility] | | | | | | [place], [place] | | | | | | [address] | | | | | | [phone] | | | +--------+ + + + [...]
--- OUTSIDE RECORDS SUMMARY | ~2019-03-11 | XMS | Encounter Summary ---
Demographics + + + | Address | [address] | | | [place] [address] | + + + | Home Phone [...] [place] | | | | | [address] | | + + + + + Care Team Providers + +------+ + | Care Woods Superintendent Name | Role | Phone | [...] To Surgery | | 2017 | | [place] [facility] [address] | | - General | | | | [address] | | | | | | Mailcode: Center | | | | | | for Health and | | | | | | [facility] 2 | | | | | | [place], [place] | | | | | | [address] | | | | | | [phone] | | | +--------+ + + + [...]
--- OUTSIDE RECORDS SUMMARY | ~2019-03-11 | XMS | Encounter Summary ---
Demographics + + + | Address | [address] | | | [place] [address] | + + + | Home Phone | | + + + | Preferred Language | Unknown | + + + | Marital Status | | + + + | Congregational Affiliation | 1061 | + + + [...] [place] | | | | | [address] | | + + + + + | Christy Flaherty | ECON | [address] | | | | | [place] | | | | | [address] | | + + + + + Care Team Providers + +------+ + | Care Project Specialist Name | Role | Phone | + +------+ + | Juan Demarco MD | PCP | | + +------+ + Encounter Details +--------+ + + + + | Date | Type | Department | Care Team | Description | +--------+ + + + + | 04/08/ | Orders Only | [facility] | Conversion | | | 2015 | | INFECTIOUS DISEASE | Transaction, | | | | | [address] | Provider Unknown | | | | | [place], [place] | | | | | | [address] | (Fax) | | | | | [phone] | | | +--------+ + + + [...]
--- OUTSIDE RECORDS SUMMARY | ~2019-03-11 | XMS | Encounter Summary ---
Demographics + + + | Address | [address] | | | [place] [address] | + + + | Home Phone [...] [place] | | | | | [address] | | + + + + + Care Team Providers + +------+ + | Care Account Support Rep Name | Role | Phone | + [...] | | | | with complex | [place], [place] | [place], [place] | | | | | partial | [address] | [address] | | | | | seizures, | Phone: | Phone: | | | | | intractable, | [phone] | [phone] | | | | | without | Fax: | Fax: | | | | | status | [phone] | [phone] | | | | | epilepticus | | | | | | | (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) (Primary Dx) | | | | [address] | | | | | | [phone] | | | +--------+---------+ + + + [...] to pinprick and light touch. Cerebellar: Normal wrhdzh-um-fghv, and rapid alternating movements. Gait: Normal. Tandem [...]
--- OUTSIDE RECORDS SUMMARY | ~2019-03-11 | XMS | Encounter Summary ---
Demographics + + + | Address | [address] | | | [place] [address] | + + + | Home Phone [...] [place] | | | | | [address] | | + + + + + Care Team Providers + +------+ + | Care Concrete Pourer Name | Role | Phone | + [...] | | | | | | [address], [place] | | | | | | [address] | | | | | | [phone] | | | +--------+ + + + [...] perfume, lotions or powder. Remove any nail maltese from at least one fingernail. Do not [...] Time: Someone from your surgeon's office or [facility] will provide you with information regarding your [...] it is after office hours, call the [facility] textile slitting machine operator at [phone] and ask them to page your doc tor. documented in this encounter Plan of Treatment Not on filedocumented as of this encounter Visit Diagnoses Not on filedocumented in this encounter"
--- OUTSIDE RECORDS SUMMARY | ~2019-03-11 | XMS | Encounter Summary ---
Demographics + + + | Address | [address] | | | [place] [address] | + + + | Home Phone [...] [place] | | | | | [address] | | + + + + + | Christy Flaherty | ECON | [address] | | | | | [place] | | | | | [address] | | + + + + + Care Team Providers + +------+ + | Care Belly Dancer Name | Role | Phone | + +------+ + | Juan Demarco MD | PCP | | + +------+ + Encounter Details +--------+ + + + + | Date | Type | Department | Care Team | Description | +--------+ + + + + | 12/18/ | Orders Only | [facility] | Conversion | | | 2014 | | INFECTIOUS DISEASE | Transaction, | | | | | [address] | Provider Unknown | | | | | [place], [place] | | | | | | [address] | (Fax) | | | | | [phone] | | | +--------+ + + + [...]
--- OUTSIDE RECORDS SUMMARY | ~2019-03-11 | XMS | Encounter Summary ---
Demographics + + + | Address | [address] | | | [place] [address] | + + + | Home Phone [...] [place] | | | | | [address] | | + + + + + Care Team Providers + +------+ + | Care Personal Computer Network Engineer Name | Role | Phone [...] reviewd by | | | | Mailcode: [place] | [place], [place] | Jarek) | | | | for Health and | [address] | | | | | [place] [address] | [phone] | | | | | [place], [place] | | | | | | [address] | | | | | | [phone] | | | +--------+ + + + [...]
--- OUTSIDE RECORDS SUMMARY | ~2019-03-11 | XMS | Encounter Summary ---
Demographics + + + | Address | [address] | | | [place] [address] | + + + | Home Phone [...] [place] | | | | | [address] | | + + + + + | Christy Flaherty | ECON | [address] | | | | | [place] | | | | | [address] | | + + + + + Care Team Providers + +------+ + | Care Director Transportation Name | Role | Phone | + [...] W | | | | | | [place], | | | | | | [place] [address] | | | | | | [phone] | | | +--------+ + + + [...]
--- OUTSIDE RECORDS SUMMARY | ~2019-03-11 | XMS | Encounter Summary ---
Demographics + + + | Address | [address] | | | [place] [address] | + + + | Home Phone [...] [place] | | | | | [address] | | + + + + + | Christy Flaherty | ECON | [address] | | | | | [place] | | | | | [address] | | + + + + + Care Team Providers + +------+ + | Care Cafe Associate Name | Role | Phone | + +------+ + | Juan Demarco MD | PCP | | + +------+ + Encounter Details +--------+ + + + + | Date | Type | Department | Care Team | Description | +--------+ + + + + | 03/07/ | Orders Only | [facility] | Conversion | | | 2014 | | INFECTIOUS DISEASE | Transaction, | | | | | [address] | Provider Unknown | | | | | [place], [place] | | | | | | [address] | (Fax) | | | | | [phone] | | | +--------+ + + + [...]
--- OUTSIDE RECORDS SUMMARY | ~2019-03-11 | XMS | Encounter Summary ---
Demographics + + + | Address | [address] | | | [place] [address] | + + + | Home Phone | | + + + | Preferred Language | Unknown | + + + | Marital Status | | + + + | Congregational Affiliation | ASG | + + + [...] [place] | | | | | [address] | | + + + + + Care Team Providers + +------+ + | Care County Program Technician Name | Role | Phone | [...] Question | | 2016 | Encounter | [facility] | [address] | | | | | Healing [address] | [place], [place] | | | | | [address] Mailcode: | [address] | | | | | [address] for | [phone] | | | | | Health and Healing, | | | | | | [facility] | | | | | | [place], [place] | | | | | | [address] | | | | | | [phone] | | | +--------+ + + + [...]
--- OUTSIDE RECORDS SUMMARY | ~2019-03-11 | XMS | Encounter Summary ---
Demographics + + + | Address | [address] | | | [place] [address] | + + + | Home Phone | | + + + | Preferred Language | Unknown | + + + | Marital Status | | + + + | Mandaeism Affiliation | 1061 | + + + [...] [place] | | | | | [address] | | + + + + + | Christy Flaherty | ECON | [address] | | | | | [place] | | | | | [address] | | + + + + + Care Team Providers + +------+ + | Care Mail Officer Name | Role | Phone | + +------+ + | Juan Demarco MD | PCP | | + +------+ + Encounter Details +--------+ + + + + | Date | Type | Department | Care Team | Description | +--------+ + + + + | 01/07/ | Orders Only | [facility] | Conversion | | | 2014 | | INFECTIOUS DISEASE | Transaction, | | | | | [address] | Provider Unknown | | | | | [place], [place] | | | | | | [address] | (Fax) | | | | | [phone] | | | +--------+ + + + [...]
--- OUTSIDE RECORDS SUMMARY | ~2019-03-11 | XMS | Encounter Summary ---
Demographics + + + | Address | [address] | | | [place] [address] | + + + | Home Phone [...] [place] | | | | | [address] | | + + + + + | Christy Grande | ECON | [address] | | | | | [place] | | | | | [address] | | + + + + + Care Team Providers + +------+ + | Care Cash Applications Representative Name | Role | Phone | + +------+ + | Juan Demarco MD | PCP | | + +------+ + Encounter Details +--------+ + + + + | Date | Type | Department | Care Team | Description | +--------+ + + + + | 02/24/ | Emergency | [facility] | Azar Herron | Idiopathic acute | | 2017 | | [facility] | MD Michael [address] | pancreatitis without | | | | [facility] | [place], [place] | infection or | | | | [address] | [address] | necrosis | | | | [place], [place] | [phone] | | | | | [address] | | | | | | [phone] | | | +--------+ + + + [...] years MaleCT | | ABDOMEN PELVIS WO PQRGGWMN47/29/2017 11:28 AM INDICATION: Abdominal pain. Possible | [...] - 1.035 | EXTERNAL | | | [place] | | | LAB | | + [...] | | | Urine | performed at [facility], [address] | | LAB | | | [address], [place], | | | | | | [place] [address] | | | | + + + [...] | | | Basophils | performed at [facility], [address] | [address] | LAB | | | | [address] [place] [address], | | | | | | [place] [address] | | | | + + + [...] EXTERNAL | | | | performed at [facility], [address] | | LAB | | | | [address], | | | | | | [place] [address] | | | | + + + [...] EXTERNAL | | | | performed at [facility], [address] | | LAB | | | | [address] [place], | | | | | | [place] [address] | | | | + + + [...] | | | | | | at [facility], [address] | | | | | | [place] | | | | | | [address] | | | | + + + [...]
--- OUTSIDE RECORDS SUMMARY | ~2019-03-11 | XMS | Encounter Summary ---
Demographics + + + | Address | [address] | | | [place] [address] | + + + | Home Phone [...] [place] | | | | | [address] | | + + + + + Care Team Providers + +------+ + | Care Complaint Inspector Name | Role | Phone | + +------+ + | Jarvis Willard MD | PCP | | + +------+ + Encounter Details +--------+ + + + + | Date | Type | Department | Care Team | Description | +--------+ + + + + | 02/07/ | Procedure | Diagnostic Imaging | | | | 2019 | Pass | Services at [facility] | | | | | | [address] | | | | | | [place] Mailcode: | | | | | | [address] [facility] | | | | | | [place], [place] | | | | | | [address] | | | | | | [phone] | | | +--------+ + + + [...]
--- OUTSIDE RECORDS SUMMARY | ~2019-03-11 | XMS | Encounter Summary ---
Demographics + + + | Address | [address] | | | [place] [address] | + + + | Home Phone [...] [place] | | | | | [address] | | + + + + + Care Team Providers + +------+ + | Care Instrument Installer Name | Role | Phone | [...] 01.2803: | | 2016 | Encounter | [facility] & | MD | Category of | | | | Healing [address] | | Impairments, | | | | [place] Mailcode: | | Neurological | | | | [address] | | | | | | Health and Healing, | | | | | | Building [facility] | | | | | | Floor [place], [place] | | | | | | [address] | | | | | | [phone] | | | +--------+ + + + [...]
--- OUTSIDE RECORDS SUMMARY | ~2019-03-11 | XMS | Encounter Summary ---
Demographics + + + | Address | [address] | | | [place] [address] | + + + | Home Phone [...] [place] | | | | | [address] | | + + + + + | Christy Flaherty | ECON | [address] | | | | | [place] | | | | | [address] | | + + + + + Care Team Providers + +------+ + | Care Spray I Painter Name | Role | Phone | + +------+ + | Juan Demarco MD | PCP | | + +------+ + Encounter Details +--------+ + + + + | Date | Type | Department | Care Team | Description | +--------+ + + + + | 11/19/ | Orders Only | [facility] | Rk Rodriguez DO | | | 2014 | | INFECTIOUS DISEASE | [address] | | | | | [address] | [place] [address] | | | | | [place], [place] | [phone] | | | | | [address] | | | | | | [phone] | | | +--------+ + + + [...]
--- OUTSIDE RECORDS SUMMARY | ~2019-03-11 | XMS | Encounter Summary ---
Demographics + + + | Address | [address] | | | [place] [address] | + + + | Home Phone [...] [place] | | | | | [address] | | + + + + + | Christy Grande | ECON | [address] | | | | | [place] | | | | | [address] | | + + + + + Care Team Providers + +------+ + | Care Cafe Assistant Name | Role | Phone | + +------+ + | Juan Demarco MD | PCP | | + +------+ + Encounter Details +--------+ + + + + | Date | Type | Department | Care Team | Description | +--------+ + + + + | 12/05/ | Hospital | [facility] | Conversion | Rheumatic fever; | | 2014 | Encounter | [facility] | Transaction, | Coccidioidomycosis | | | | ECHOCARDIOGRAPHY | Provider Unknown | | | | | [address] [facility] | | | | | | [place], [place] | (Fax) | | | | | [address] | | | | | | [phone] | | | +--------+ + + + [...] dilated. | | | 4. There is pbbnrowi-cu-dvufii aortic regurgitation. 5. Suboptimal | | | [...] dilated. | | | 4. There is gotevchb-nx-fwrykm aortic regurgitation. 5. Suboptimal | | | [...] | | calcified. Aortic Valve: There is vccxebcx-cw-txtlim aortic | | | regurgitation. Aortic Valve: [...] | | | Excursion: 1.52 cm E-F Smyth: 0.26 m/s HR: 56.66 BPM AV | [...] TV A George: 0.55 m/s TV Dec Smyth: 1.98 | | | m/s2 TV Dec Time: 284.09 ms TV E George: 0.56 m/s TV E/A Ratio: | | | 1.01 Phone Operator: CM Authenticated by: Belia Nelson MD | [...] is mildly dilated.4. There is | | zqxzqjga-od-lbkvvg aortic regurgitation.5. Suboptimal study to evaluate for [...] moderately calcified.Aortic | | Valve: There is tfyqxcqu-df-ihexoz aortic regurgitation.Aortic Valve: There is no | [...] (A-L): | | 24.03 ml/m2LAAs A2C: 16.90 fr5OWXJO A-L A2C: 52.54 mlLALs A2C: 4.61 cmLAAs A4C: | | 17.00 sl6KEKDU A-L A4C: 48.85 mlLALs A4C: 5.02 cmAo Diam: 3.43 cmAV Cusp: 2.18 | | cmLA Diam: 4.06 cmLA/Ao: 1.18%FS: 25.49 %EDV(Teich): 135.94 mlEF(Teich): 49.82 | | %ESV(Teich): 68.20 mlIVSd: 1.00 cmIVSs: 1.28 cmLVIDd: 5.31 cmLVIDs: 3.95 | | cmLVPWd: 1.07 cmLVPWs: 1.28 cmSV(Teich): 67.73 mlD-E Excursion: 1.52 cmE-F | | Smyth: 0.26 m/sHR: 56.66 BPMAV maxP.28 mmHgAV meanP.69 mmHgAV Vmax: | | 2.07 m/Stormy Vmean: 1.38 m/Stormy VTI: 43.11 cmAVA Vmax: 1.83 cm2AVA (VTI): 1.92 | | be0SISU Dopp: 2.13 l/pdwh4QFNZ Dopp: 4.68 l/minHR: 56.48 BPMLVOT maxP.82 | | mmHgLVOT meanP.46 mmHgLVSI Dopp: 37.72 ml/m2LVSV Dopp: 82.99 mlLVOT Vmax: | | 0.84 m/sLVOT Vmean: 0.57 m/sLVOT VTI: 18.25 cmMV E George: 0.70 m/sMV PHT: 80.50 | | msMVA By PHT: 2.73 lh9Cuvhsf e': 0.05 m/sSeptal E/e': 11.93Lateral e': 0.08 | | m/sLateral E/e': 8.73P Vein D: 0.43 m/sP Vein S/D Ratio: 0.99P Vein S: 0.42 | | m/sHR: 58.77 BPMPV maxP.78 mmHgPV meanP.93 mmHgPV Vmax: 0.66 m/sPV | | Vmean: 0.45 m/sPV VTI: 15.68 cmTV A George: 0.55 m/sTV Dec Smyth: 1.98 m/s2TV Dec | | Time: 284.09 msTV E George: 0.56 m/sTV E/A Ratio: 1.01 Phone Operator: CMAuthenticated | | by: Belia Nelson MDReport Date/Time: 12-05-2014 20:23:19 IMPRESSION: 1. Overall left | | ventricular systolic function is low-normal with, an EF between 50 - 55 %.2. The right | | ventricle is moderately enlarged measuring between 3.8 - 4.1 cm.3. The left atrium is | | mildly dilated.4. There is mmuzmnml-bw-rcdgvp aortic regurgitation.5. Suboptimal study | | to [...] | |D-E Excursion: 1.52 cm | |E-F Smyth: 0.26 m/s | |HR: 56.66 BPM | [...] A George: 0.55 m/s | |TV Dec Smyth: 1.98 m/s2 | |TV Dec Time: 284.09 ms | |TV E George: 0.56 m/s | |TV E/A Ratio: 1.01 | | | |Phone Operator: CM | |Authenticated by: Belia Nelson MD | |Report Date/Time: 12-05-2014 20:23:19 | | | |IMPRESSION: | |1. Overall left ventricular systolic function is low-normal with, an EF between 50 - 55 %. | |2. The right ventricle is moderately enlarged measuring between 3.8 - 4.1 cm. | |3. The left atrium is mildly dilated. | |4. There is sdlqcivj-gg-pkwvaa aortic regurgitation. | |5. Suboptimal study to [...]
--- OUTSIDE RECORDS SUMMARY | ~2019-03-11 | XMS | Encounter Summary ---
Demographics + + + | Address | [address] | | | [place] [address] | + + + | Home Phone | | + + + | Preferred Language | Unknown | + + + | Marital Status | | + + + | Yazdanism Affiliation | 1061 | + + + | Race | Unknown | + + + | Ethnic Group | Unknown | + + + Author + + + | Author | [facility] | | | and [place] | + + + | Organization | [facility] | | | [...] [place] | | | | | [address] | | + + + + + | Christy Flaherty | ECON | [address] | | | | | [place] | | | | | [address] | | + + + + + Care Team Providers + +------+ + | Care Management Scientist Name | Role | Phone | + +------+ + | Juan Demarco MD | PCP | | + +------+ + Encounter Details +--------+ + + + + | Date | Type | Department | Care Team | Description | +--------+ + + + + | 12/24/ | Orders Only | [facility] | Conversion | | | 2014 | | INFECTIOUS DISEASE | Transaction, | | | | | [address] | Provider Unknown | | | | | [place], [place] | | | | | | [address] | (Fax) | | | | | [phone] | | | +--------+ + + + [...]
--- OUTSIDE RECORDS SUMMARY | ~2019-03-11 | XMS | Encounter Summary ---
Demographics + + + | Address | [address] | | | [place] [address] | + + + | Home Phone [...] [place] | | | | | [address] | | + + + + + Care Team Providers + +------+ + | Care Boxing And Pressing Supervisor Name | Role | Phone | [...] 2017 | | Procedural Unit at | [address] | | | | | [place] [address] | | | | | [address] | [place], [place] | | | | | Mailcode: UHN83 | [address] | | | | | [address] | [phone] | | | | | [address] [place], [place] | | | | | | [address] | | | | | | [phone] | | | +--------+ + + + [...]
--- OUTSIDE RECORDS SUMMARY | ~2019-03-11 | XMS | Encounter Summary ---
Demographics + + + | Address | [address] | | | [place] [address] | + + + | Home Phone | | + + + | Preferred Language | Unknown | + + + | Marital Status | | + + + | Denominational Affiliation | 1061 | + + + [...] [place] | | | | | [address] | | + + + + + | Christy Flaherty | ECON | [address] | | | | | [place] | | | | | [address] | | + + + + + Care Team Providers + +------+ + | Care Surveillance Specialist Name | Role | Phone | + +------+ + | Juan Demarco MD | PCP | | + +------+ + Encounter Details +--------+ + + + + | Date | Type | Department | Care Team | Description | +--------+ + + + + | 06/23/ | Orders Only | [facility] | Conversion | | | 2016 | | INFECTIOUS DISEASE | Transaction, | | | | | [address] | Provider Unknown | | | | | [place], [place] | | | | | | [address] | (Fax) | | | | | [phone] | | | +--------+ + + + [...]
--- OUTSIDE RECORDS SUMMARY | ~2019-03-11 | XMS | Clinical Summary ---
Demographics + + + | Address | [address] | | | [place] [address] | + + + | Home Phone | | + + + | Preferred Language | Unknown | + + + | Marital Status | | + + + | Lutheran Affiliation | 1061 | + + + | Race | Unknown | + + + | Ethnic Group | Unknown | + + + Author + + + | Author | [employer] [facility] (Historical as of | | | 11-12-18) | + + + | Organization | [facility] (Historical as of | | | 11-12-18) [...] [place] | | | | | [address] | | + + + + + Care Team Providers + +------+ + | Care Hydroelectric Plant Technician Name | Role | Phone | [...] +------+-------+ + | MEDICAID | [place] | [id number] | | | [address] | | | N | | | | [place] | | | [place] | | | | [address] | | | TACTICAL DEBRIEFER | | | | | + +--------+ [...] | Self | [birth year] | Home: | [address] [place] [address] | | | al/Fam | | [phone] | [phone] | [place] | | | eladio | | | [phone] | [address] | + +--------+ +--------+ + +
--- OUTSIDE RECORDS SUMMARY | ~2019-03-11 | XMS | Encounter Summary ---
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.] | | | | | pancreatitis | [facility] | Mailcode: | | | | | (HCC) | Rd | [facility] | | | | | Procedures | [place], [place] | for Health | | | | | [place] | [address] | and Healing, | | | | | MULTIPHASE | Phone: | [address], | | | | | PANCREAS AND | [phone] | 3rd Floor | | | | | PELVIS [address] IV | Fax: | [place], [place] | | | | | CONTRAST | [phone] | [address] | | | | | [address] | | Phone: | | | | | ABD&PELV 1+ | | [phone] | | | | | SECTION/REGN | | Fax: | | | | | S | | [phone] | +--------+--------+ + + + + Encounter Details +--------+ + + + + | Date | Type | Department | Care Team | Description | +--------+ + + + + | 02/20/ | Hospital | Diagnostic Imaging | Duy Kat, | | | 2019 | Encounter | Services at [facility] | [address] | | | | | [address] | [address] | | | | | Jayshree Santillan Mailcode: | [place], [place] | | | | | [address] [facility] | [address] | | | | | [place], [place] | [phone] | | | | | [address] | | | | | | [phone] | | | +--------+ + + + [...] | 3 | 02/09/20 | | | kzecib-faqodivb-dids | mouth with meals and | tablet [...]
--- OUTSIDE RECORDS SUMMARY | ~2019-03-11 | XMS | Encounter Summary ---
Demographics + + + | Address | [address] | | | [place] [address] | + + + | Home Phone [...] [place] | | | | | [address] | | + + + + + Care Team Providers + +------+ + | Care Buyer Intern Name | Role | Phone | + +------+ + | Filippo Chen DO | PCP | | + +------+ + Encounter Details +--------+ + + + + | Date | Type | Department | Care Team | Description | +--------+ + + + + | 12/17/ | Documentati | Neurology at | Amaodr Mayorga, | | | 2016 | on | [facility] | VETERINARY ANATOMIST [address] | | | | | Healing [address] | | | | | Hector Cabrera Mailcode: | [place], [place] | | | | | [facility] | [address] | | | | | Health and He[facility], | [phone] | | | | | [facility] [address] | | | | | | Floor [place], [place] | | | | | | [address] | | | | | | [phone] | | | +--------+ + + + [...]
--- OUTSIDE RECORDS SUMMARY | ~2019-03-11 | XMS | Encounter Summary ---
Demographics + + + | Address | [address] | | | [place] [address] | + + + | Home Phone [...] [place] | | | | | [address] | | + + + + + Care Team Providers + +------+ + | Care Microbiology Quality Control Technician Name | Role | Phone | [...] 2019 | Encounter | [facility] | [address] | | | | | [place] | [facility] | | | | | Mailcode: Center | [place], [place] | | | | | [facility] and | [address] | | | | | [facility] | [phone] | | | | | [place], [place] | | | | | | [address] | | | | | | [phone] | | | +--------+ + + + [...]
--- OUTSIDE RECORDS SUMMARY | ~2019-03-11 | XMS | Encounter Summary ---
Demographics + + + | Address | [address] | | | [place] [address] | + + + | Home Phone [...] + + | Author | [facility] | + + + | Organization | [facility] | + + + | Address | Unknown | + + + | Phone | Unavailable | + + + Support + + + + + | Name | Relationship | Address | Phone | + + + + + | Christy Flaherty | ECON | [address] | | | | | [place] | | | | | [address] | | + + + + + Care Team Providers + +------+ + | Care Vinyl Top Installer Name | Role | Phone | + +------+ + | Filippo Chen DO | PCP | | + +------+ + Encounter Details +--------+ + + + + | Date | Type | Department | Care Team | Description | +--------+ + + + + | 09/25/ | Telephone | Neurology at | Noe Arambula, | | | 2015 | | Center [facility] & | | | | | | Healing [address] | | | | | | [address] Mailcode: | | | | | | [facility] | | | | | | Health and Healing, | | | | | | Building | | | | | | Floor [place], [place] | | | | | | [address] | | | | | | [phone] | | | +--------+ + + + [...]
--- OUTSIDE RECORDS SUMMARY | ~2019-03-11 | XMS | Encounter Summary ---
Demographics + + + | Address | [address] | | | [place] [address] | + + + | Home Phone [...] [place] | | | | | [address] | | + + + + + Care Team Providers + +------+ + | Care Stock Control Supervisor Name | Role | Phone | [...] Encounter | Services [address] | | | | | [address] | [address] | | | | | [place], [place] | [place], [place] | | | | | [address] | [address] | | | | | | [phone] | | | | | | | [...]
--- OUTSIDE RECORDS SUMMARY | ~2019-03-11 | XMS | Encounter Summary ---
Demographics + + + | Address | [address] | | | [place] [address] | + + + | Home Phone [...] + + + | Author | [facility] | + + + | Organization | [facility] | + + + | Address | Unknown | + + + | Phone | Unavailable | + + + Support + + + + + | Name | Relationship | Address | Phone | + + + + + | Christy Flaherty | ECON | [address] | | | | | [place] | | | | | [address] | | + + + + + Care Team Providers + +------+ + | Care Franchise Consultant Name | Role | Phone | + +------+ + | Filippo Chen DO | PCP | | + +------+ + Reason for Visit + + + | Reason | Comments | + + + | Pre-Admission | [facility] | + + + | Epilepsy | nursery nurse; chart review and pre-admin assessment | + + + Encounter Details +--------+ + + + + | Date | Type | Department | Care Team | Description | +--------+ + + + + | 10/01/ | Telephone | Neurology at | [place], | Pre-Admission ([facility] | | 2016 | | [facility] & | [address] | ); Epilepsy (RN | | | | Healing [address] | [facility] | Navigator; chart | | | | Hector Cabrera Mailcode: | [place], [place] | review and pre-admin | | | | [address] | [address] | assessment) | | | | Health and Healing, | | | | | | Building [address]th | | | | | | [place], [place] | | | | | | [address] | | | | | | [phone] | | | +--------+ + + + [...]
--- OUTSIDE RECORDS SUMMARY | ~2019-03-11 | XMS | Encounter Summary ---
Demographics + + + | Address | [address] | | | [place] [address] | + + + | Home Phone [...] [place] | | | | | [address] | | + + + + + | Christy Flaherty | ECON | [address] | | | | | [place] | | | | | [address] | | + + + + + Care Team Providers + +------+ + | Care Group Art Supervisor Name | Role | Phone | + +------+ + | Juan Demarco MD | PCP | | + +------+ + Encounter Details +--------+ + + + + | Date | Type | Department | Care Team | Description | +--------+ + + + + | 11/07/ | Orders Only | [facility] | Conversion | | | 2015 | | INFECTIOUS DISEASE | Transaction, | | | | | [address] | Provider Unknown | | | | | [place], [place] | | | | | | [address] | (Fax) | | | | | [phone] | | | +--------+ + + + [...]
--- OUTSIDE RECORDS SUMMARY | ~2019-03-11 | XMS | Encounter Summary ---
Demographics + + + | Address | [address] | | | [place] [address] | + + + | Home Phone [...] [place] | | | | | [address] | | + + + + + Care Team Providers + +------+ + | Care Mechanical Facilities Technician Name | Role | Phone | [...] Pancreatic | Paras Jorge, | [address] | | | | | mass | MD [address] | | | | | Epigastric | Eli[address]seca | Mailcode: | | | | | pain | Jayshree Santillan | [place] for | | | | | Elevated | [place], [place] | Health and | | | | | lipase | [address] | Healing, | | | | | Procedures | Phone: | Building 2 | | | | | CONSULT TO | [phone] | [facility] [place] | | | | | GASTROENTERO | Fax: | [address] | | | | | [place] | [phone] | Phone: | | | | | | | [phone] | | | | | | | Fax: | | | | | | | [phone] | +--------+--------+ + + + + Diagnostic [...] | | | | [address] | [place], [place] | for Health | | | | | CONTRAST [place] | [address] | and Healing, | | | | | CT SCAN OF | Phone: | Building 1, | | | | | ABDOMEN | [phone] | 3rd Floor | | | | | COMBO | Fax: | [place], [place] | | | | | | [phone] | [address] | | | | | | | Phone: | | | | | | | [phone] | | | | | | | Fax: | | | | | | | [phone] | +--------+--------+ + + + + Encounter Details +--------+ + + + + | Date | Type | Department | Care Team | Description | +--------+ + + + + | 02/24/ | Addiction Medicine Physician | Endoscopic | Paras Baker | Pancreatic mass | | 2017 | | Procedural Unit at | MD Ania [address] | (Primary Dx); | | | | [place] [address] | [address] | Epigastric pain; | | | | [address] | [place], [place] | Elevated lipase | | | | Mailcode: UHN83 | [address] | | | | | [address] | [phone] | | | | | [address] [place], [place] | | | | | | [address] | | | | | | [phone] | | | +--------+ + + + [...] Note | + + | Service Account, Chase[employer] Res In Interface - 03/11/2017 12:43 PM [...] Note | + + | Service Account, Xenome In Interface - 02/25/2017 5:25 PM PST [...]
--- OUTSIDE RECORDS SUMMARY | ~2019-03-11 | XMS | Encounter Summary ---
Demographics + + + | Address | [address] | | | [place] [address] | + + + | Home Phone [...] + + | Author | [facility] | | | and [place] | + + + | Organization | [facility] | | [...] [place] | | | | | [address] | | + + + + + | Christy Grande | ECON | [address] | | | | | [place] | | | | | [address] | | + + + + + Care Team Providers + +------+ + | Care Manager Rental Name | Role | Phone | + +------+ + | Juan Demarco MD | PCP | | + +------+ + Encounter Details +--------+ + + + + | Date | Type | Department | Care Team | Description | +--------+ + + + + | 09/02/ | Hospital | [facility] | Aure Brooks | Localized skin mass, | | 2012 | Encounter | MED CTR XRAY [address] | MD Janel [address] | lump, or swelling | | | | [place] | [address] [place] | | | | | [place] [address] | [place] [address] | | | | | [phone] | [phone] | | | | | | | [...] Performed At | + + + | [facility] | LOTUS | | Department [address] [facility] | | [ rep ri [address]] [ rep [facility] | | [facility]] Signed | - IMAGING | | | | | Patient Name: JOHNNY GRANDE Physician: | | | BROOKE.Jesus : 1965 Age: 47 Sex: M Unit #: [id number] | | | Exam Date: 09/02/12 [place] [facility] [place] | | | Report #: [id number] Page: | | | %(RAD)RES..mtdd.print.filter("pg") of %(RAD) | | | RES..mtdd.print.filter("tpg") | | | | | | Accession Number: [id number] | | | THREE VIEWS RIGHT HAND, [...] Transcribed Date/Time: 09/02/2012 | | | 21:21 Box Worker: <<Signature | | | on File>> | | | Rojas Solorio | | | MD Robson09/02/12 6238 <Electronically signed by Rojas Chance MD> | | | Rojas Chance MD 09/02/12 1220 Box Worker: | | | [employer] [id number] | | + + + + + + + + | Performing | Address | City/State/Zipcode | Phone Number | | Organization | | | | + + + + + | [address] | [address] | [place] | [phone] | | [facility] | | [address] | | | - IMAGING | | | | + + + + + documented in this encounter Visit Diagnoses + + | Diagnosis | + + | Localized skin mass, lump, or swelling Localized superficial swelling, mass, or lump | + + documented in this encounter
--- OUTSIDE RECORDS SUMMARY | ~2019-03-11 | XMS | Encounter Summary ---
Demographics + + + | Address | [address] | | | [place] [address] | + + + | Home Phone [...] [place] | | | | | [address] | | + + + + + Care Team Providers + +------+ + | Care In School Suspension Coordinator Name | Role | Phone | [...] | Referral | Procedural Unit at | [address] | | | | Order | [place] [address] | [address] | | | | | [address] | [place], [place] | | | | | Mailcode: UHN83 | [address] | | | | | [address] | [phone] | | | | | [address] [place], [place] | | | | | | [address] | | | | | | [phone] | | | +--------+ + + + [...] + | MRN: | [facility] | | [id number] Date: 04/09/2017Patient Name: Daysi Cook #: | ENDOSCOPY | | [id number] of : 1965CSN: [id number] Type: | | | AmbulatoryRoom: GI 3Procedure: Upper EUSIndications: | | | Abnormal ultrasound of the abdomenProviders: | | | YANNI TILLEY MD (Doctor), LUIS A MAYES RN (Nurse), | | | JYOTI RODRIGUEZ, Spray Crew (Spray Crew)Referring MD: | | | YANNI TILLEY MDRequesting [...] the procedure. | | | The Olympus [id number] AL5 Linear Echoendoscope #[id number] | | | was introduced through the mouth, and advanced | | | to the second part of duodenum. The | | | Olympus [id number] Endoscope #[id number] | | | was introduced through the [...] stylet | | | was used. A blend technician was present and performed a preliminary | [...] Initiated On: | | | 04/09/2017 1:07 [facility] Letter to: LISA PINON DO | [...] + + | Performing | Address | City/State/[facility] | Phone Number | | Organization | | | | + +---------+ + + | [facility] | | | | + +---------+ + + documented in this encounter Visit Diagnoses + + | Diagnosis | + + | Idiopathic chronic pancreatitis (HCC) - Primary | + + documented in this encounter"
--- OUTSIDE RECORDS SUMMARY | ~2019-03-11 | XMS | Encounter Summary ---
Demographics + + + | Address | [address] | | | [place] [address] | + + + | Home Phone | | + + + | Preferred Language | Unknown | + + + | Marital Status | | + + + | Synagogue Affiliation | 1061 | + + + [...] [place] | | | | | [address] | | + + + + + | Christy Grande | ECON | [address] | | | | | [place] | | | | | [address] | | + + + + + Care Team Providers + +------+ + | Care Pump Press Operator Name | Role | Phone | + +------+ + | Juan Demarco MD | PCP | | + +------+ + Encounter Details +--------+ + + + + | Date | Type | Department | Care Team | Description | +--------+ + + + + | 07/20/ | Orders Only | [facility] | Jb Mendiola, | | | 2017 | | CARDIOLOGY FELIBERTO | [address] | | | | | ECHO [address] | [place] [address] | | | | | [place] | [phone] | | | | | [address] | | | | | | [phone] | | | +--------+ + + + [...] TR | | | Vmax: 1.71 m/s Manager Custom: MIKI Authenticated by: Jb | | | Maury [place], FACC, FACP, FASNC Report Date/Time: -- | | | [id number]:11:50 | | + + + + + | Procedure Note | + + | Kj, Rad Conversion - 11/17/2018 7:26 PM PDT Patient Name: Jen GRANDE of | | : 1965 Performing Physician: Jb Mendiola MD, [facility], | | FACP, | | FASNC INDICATIONS--------- [...] (A-L): 22.13 ml/m2LAAs A2C: 17.71 | | [id number] A-L A2C: 56.35 mlLALs A2C: 4.72 cmLAAs A4C: 16.00 kn5OYWSA A-L A4C: | | 41.00 mlLALs A4C: 5.30 cmRAAs: 13.94 un0OGAEM A-L: 30.97 mlRAESV MOD: 29.42 | | mlRALs: 5.33 cmAo Diam: 3.51 cmAV maxP.26 mmHgAV meanP.19 mmHgAV Vmax: | | 1.75 m/Stormy Vmean: 1.28 m/Stormy VTI: 37.85 cmAVA Vmax: 1.87 cm2AVA (VTI): 1.75 | | jy2IQXH maxP.69 mmHgLVOT meanP.52 mmHgLVSI Dopp: 28.89 ml/m2LVSV Dopp: | | 66.46 mlLVOT Vmax: 0.82 m/sLVOT Vmean: 0.59 m/sLVOT VTI: 16.62 cmSeptal e': 0.06 | | m/sLateral e': 0.11 m/sPV maxP.22 mmHgPV Vmax: 1.14 m/sTR maxP.80 | | mmHgTR Vmax: 1.71 m/s Manager Custom: MIKIAuthenticated by: Jb Mendiola MD, FACC, FACP, | | FASNCReport Date/Time: -- [id number]:11:50 IMPRESSION: 1. This was a technically | [...] |TR Vmax: 1.71 m/s | | | |Manager Custom: RK | |Authenticated by: Jb Mendiola MD, FACC, FACP, [facility] | |Report Date/Time: -- [id number]:11:50 | | | |IMPRESSION: | |1. This [...]
--- OUTSIDE RECORDS SUMMARY | ~2019-03-11 | XMS | Encounter Summary ---
Demographics + + + | Address | [address] | | | [place] [address] | + + + | Home Phone [...] [place] | | | | | [address] | | + + + + + Care Team Providers + +------+ + | Care Cultured Marble Products Maker Name | Role | Phone | [...] 01.2803: | | 2016 | Encounter | [facility] & | MD | Category of | | | | Healing [address] | | Impairments, | | | | [place] Mailcode: | | Neurological | | | | [address] | | | | | | Health and Healing, | | | | | | Building [facility] | | | | | | Floor [place], [place] | | | | | | [address] | | | | | | [phone] | | | +--------+ + + + [...]
--- OUTSIDE RECORDS SUMMARY | ~2019-03-11 | XMS | Encounter Summary ---
Demographics + + + | Address | [address] | | | [place] [address] | + + + | Home Phone | | + + + | Preferred Language | Unknown | + + + | Marital Status | | + + + | Islam Affiliation | ASG | + + + [...] [place] | | | | | [address] | | + + + + + Care Team Providers + +------+ + | Care Tool And Die Manager Name | Role | Phone | [...] | | 2016 | | AMBULATORY [address] | BRICK CATCHER [address] | consultation | | | | [address] | [address] | | | | | Mailcode: CH6A | [place], [place] | | | | | [place], [place] | [address] | | | | | [address] | [phone] | | | | | [phone] | | | +--------+ + + + [...]
--- OUTSIDE RECORDS SUMMARY | ~2019-03-11 | XMS | Encounter Summary ---
Demographics + + + | Address | [address] | | | [place] [address] | + + + | Home Phone [...] [place] | | | | | [address] | | + + + + + Care Team Providers + +------+ + | Care Oracle Database Consultant Name | Role | Phone | [...] | | | | with complex | [place], [place] | [place] | | | | | partial | [address] | [address] | | | | | seizures, | Phone: | Phone: | | | | | intractable, | [phone] | [phone] | | | | | without | Fax: | Fax: | | | | | status | [phone] | [phone] | | | | | epilepticus | | | | | | | ([facility]) | | | | | | [...] for | | 2016 | Visit | [facility] & | MD | long-term current [...] epilepsy and | | | | Floor [place], [place] | | epileptic syndromes | | | | [address] | | with complex partial | | | | [phone] | | seizures, | | | | [...] fro m the original. [facility] Note Author: Noe Arambula MD Date/Time: 09/05/2015 2:55 PM Requesting Attending: Sylvia Triana MD HPI: Daysi Flaherty is a 50 year old right-handed man who is being seen in [facility] for evaluation [...] took him t o the hospital in [place]. They did an MRI which was initially [...] referred to his neurologist Dr. Estrada in [place]. He reviewed the MRI and saw a [...] in September 2014 an ID specialist in [facility] determined khadijah t he had [...] November 2014. Prior Evaluation: EEG from the [facility] in 2014 was normal. [facility] 2014 showed the left mesial [...] drugs Living situation: Lives with his in [place], [place] Marital Status: Education: Some college Work: [...] to light touch. Coordination and Gait: Normal dwktxy-cypq-vofslb and zatv-mx-ocgk intact. Labs: Lab Results Component Value Date [...] right-handed man who is being seen in [facility] Epilepsy Clinic for evaluation of [...] signed on 09/05/2015 by Noe Arambula MD. Cycle Specialist Department of Neurology [facility] Comprehensive Epilepsy Center documented in [...] | + + + + + | [facility] | [address] | [place] [address] | | | SERVICES, CORE | JEROME [...] | | | LABORATORY | | | RWANDAN | | | SERVICES, | | | [...] the MDRD equation recommended by the | [facility] | | National Kidney Disease Education Program. [...] | + + + + + | [facility] | [address] | [place] [address] | | | JAMISON WORKMAN | JEROME [...]
--- OUTSIDE RECORDS SUMMARY | ~2019-03-11 | XMS | Encounter Summary ---
Demographics + + + | Address | [address] | | | [place] [address] | + + + | Home Phone | | + + + | Preferred Language | Unknown | + + + | Marital Status | | + + + | Alevism Affiliation | 1061 | + + + | Race | Unknown | + + + | Ethnic Group | Unknown | + + + Author + + + | Author | [facility] | | | and [place] | + + + | Organization | [facility] | | | [...] [place] | | | | | [address] | | + + + + + | Christy Grande | ECON | [address] | | | | | [place] | | | | | [address] | | + + + + + Care Team Providers + +------+ + | Care Child Care Assistant Name | Role | Phone | + +------+ + | Juan Demarco MD | PCP | | + +------+ + Encounter Details +--------+ + + + + | Date | Type | Department | Care Team | Description | +--------+ + + + + | 05/22/ | Orders Only | [facility] | Jb Mendiola, | | | 2015 | | CARDIOLOGY FELIBERTO | [address] | | | | | ECHO [address] | [place] [address] | | | | | [address] | [phone] | | | | | [address] | | | | | | [phone] | | | +--------+ + + + [...] 50 - 55 %. 3. There is haiq-lo-quwxmkhm aortic regurgitation. | | + + + [...] 50 - 55 %. 3. There is zlnb-bm-kccxvcrl aortic regurgitation. | | | FINDINGS -------- [...] | | | Aortic Valve: There is ocub-zt-gtaokxmb aortic regurgitation. Mitral | | | Valve: [...] | | mmHg PV Vmax: 1.10 m/s Filler Shredder Helper: MIIK Authenticated by: | | | Jb Mendiola [...] between 50 - 55 %.3. There is lqia-mj-opwolrbi aortic regurgitation. | | FINDINGS--------ECG rhythm: Sinus [...] moderately | | calcified.Aortic Valve: There is vyru-xa-bvkditzl aortic regurgitation.Mitral Valve: The | | mitral [...] cmLVPWd: 1.06 cmLVOT Area: | | 4.42 ti6MGXK Diam: 2.37 cm%FS: 33.40 %EF(Teich): 61.58 %ESV(Teich): 54.19 | | mlLVIDs: 3.59 cmSV(Teich): 86.87 mlLAESV(A-L): 39.88 mlLAESV Index (A-L): 17.19 | | ml/m2LAAs A2C: 14.25 os2YJHAK A-L A2C: 37.04 mlLALs A2C: 4.65 cmLAAs A4C: 15.34 | | gu9FOFDB A-L A4C: 39.93 mlLALs A4C: 5.00 cmAo Diam: 3.20 cmLA Diam: 4.49 | | cmLA/Ao: 1.40AV maxP.10 mmHgAV meanP.59 mmHgAV Vmax: 1.81 m/Stormy Vmean: | | 1.22 m/Stormy VTI: 32.95 cmAVA Vmax: 1.92 cm2AVA (VTI): 2.49 ld1ZMGA (Vmax): 0.00 | | cm2/m2AVAI (VTI): 0.00 cm2/m2LVOT maxP.47 mmHgLVOT meanP.61 mmHgLVSI | | Dopp: 35.43 ml/m2LVSV Dopp: 82.19 mlLVOT Vmax: 0.78 m/sLVOT Vmean: 0.61 m/sLVOT | | VTI: 18.58 cmSeptal e': 0.06 m/sLateral e': 0.08 m/sPV maxP.90 mmHgPV Vmax: | | 1.10 m/s Filler Shredder Helper: MIKIAuthenticated by: Jb Mendiola MD, FACC, FACP, FASNCReport | | Date/Time: 05-22-2015 16:37:35 IMPRESSION: 1. This was a technically difficult study | | with suboptimal views.2. Overall left ventricular systolic function is low-normal with, | | an EF between 50 - 55 %.3. There is qgtr-kl-aeawmdey aortic regurgitation. | |IVC/Hepatic Veins: The inferior [...] |PV Vmax: 1.10 m/s | | | |Filler Shredder Helper: RK | |Authenticated by: Jb Mendiola MD, FACC, FACP, FASWA | |Report Date/Time: 05-22-2015 16:37:35 | | | |IMPRESSION: | |1. This was a technically difficult study with suboptimal views. | |2. Overall left ventricular systolic function is low-normal with, an EF between 50 - 55 %. | |3. There is jfpj-uy-mlnhuwko aortic regurgitation. | + + documented in this encounter Visit Diagnoses Not on filedocumented in this encounter"
--- OUTSIDE RECORDS SUMMARY | ~2019-03-11 | XMS | Encounter Summary ---
Demographics + + + | Address | [address] | | | [place] [address] | + + + | Home Phone [...] [place] | | | | | [address] | | + + + + + | Christy Flaherty | ECON | [address] | | | | | [place] | | | | | [address] | | + + + + + Care Team Providers + +------+ + | Care Mainstreaming Facilitator Name | Role | Phone | + +------+ + | Juan Demarco MD | PCP | | + +------+ + Encounter Details +--------+ + + + + | Date | Type | Department | Care Team | Description | +--------+ + + + + | 12/10/ | Orders Only | [facility] | Conversion | | | 2014 | | INFECTIOUS DISEASE | Transaction, | | | | | [address] | Provider Unknown | | | | | [place], [place] | | | | | | [address] | (Fax) | | | | | [phone] | | | +--------+ + + + [...]
--- OUTSIDE RECORDS SUMMARY | ~2019-03-11 | XMS | Encounter Summary ---
Demographics + + + | Address | [address] | | | [place] [address] | + + + | Home Phone [...] [place] | | | | | [address] | | + + + + + Care Team Providers + +------+ + | Care Digital Media Director Name | Role | Phone [...] UHN83 | | | | | | [address] | | | | | | [address] [place], [place] | | | | | | [address] | | | | | | [phone] | | | +--------+ + + + [...]
--- OUTSIDE RECORDS SUMMARY | ~2019-03-11 | XMS | Encounter Summary ---
Demographics + + + | Address | [address] | | | [place] [address] | + + + | Home Phone | | + + + | Preferred Language | Unknown | + + + | Marital Status | | + + + | Worship Affiliation | 1061 | + + + [...] [place] | | | | | [address] | | + + + + + | Christy Flaherty | ECON | [address] | | | | | [place] | | | | | [address] | | + + + + + Care Team Providers + +------+ + | Care Law Firm Partner Name | Role | Phone | + +------+ + | Juan Demarco MD | PCP | | + +------+ + Encounter Details +--------+ + + + + | Date | Type | Department | Care Team | Description | +--------+ + + + + | 11/19/ | Orders Only | [facility] | Rk Rodriguez DO | | | 2014 | | INFECTIOUS DISEASE | [address] | | | | | [address] | [place] [address] | | | | | [place], [place] | [phone] | | | | | [address] | | | | | | [phone] | | | +--------+ + + + [...]
--- OUTSIDE RECORDS SUMMARY | ~2019-03-11 | XMS | Encounter Summary ---
Demographics + + + | Address | [address] | | | [place] [address] | + + + | Home Phone | | + + + | Preferred Language | Unknown | + + + | Marital Status | | + + + | Baptism Affiliation | 1061 | + + + | Race | Unknown | + + + | Ethnic Group | Unknown | + + + Author + + + | Author | [facility] | | | and [place] | + + + | Organization | [facility] | | | [...] [place] | | | | | [address] | | + + + + + | Christy Flaherty | ECON | [address] | | | | | [place] | | | | | [address] | | + + + + + Care Team Providers + +------+ + | Care Plumbing Warehouse Helper Name | Role | Phone | [...] [address] | | | | | [facility] [address] | [address]. | | | | | [address] | [place] [address] | | | | | [address] | | | | | | [phone] | | | +--------+ + + + [...]
--- OUTSIDE RECORDS SUMMARY | ~2019-03-11 | XMS | Encounter Summary ---
Demographics + + + | Address | [address] | | | [place] [address] | + + + | Home Phone [...] [place] | | | | | [address] | | + + + + + Care Team Providers + +------+ + | Care Paving Contractor Name | Role | Phone | + +------+ + | Jarvis Willard MD | PCP | | + +------+ + Encounter Details +--------+ + + + + | Date | Type | Department | Care Team | Description | +--------+ + + + + | 02/26/ | Procedure | Radiology/Imaging | | | | 2017 | Pass | Lab at [facility] [address] | | | | | | H[place]rera Mailcode: | | | | | | [facility] | | | | | | [facility], | | | | | | [facility] | | | | | | Floor [place], [place] | | | | | | [address] | | | | | | [phone] | | | +--------+ + + + [...]
--- OUTSIDE RECORDS SUMMARY | ~2019-03-11 | XMS | Encounter Summary ---
Demographics + + + | Address | [address] | | | [place] [address] | + + + | Home Phone [...] [place] | | | | | [address] | | + + + + + Care Team Providers + +------+ + | Care Family Sociologist Name | Role | Phone | + [...] 2016 | | AMBULATORY [address] | TUBE ROLLER [address] | consultation | | | | [address] | [address] | | | | | Mailcode: CH6A | [place], [place] | | | | | [place], [place] | [address] | | | | | [address] | [phone] | | | | | [phone] | | | +--------+ + + + [...]
--- OUTSIDE RECORDS SUMMARY | ~2019-03-11 | XMS | Encounter Summary ---
Demographics + + + | Address | [address] | | | [place] [address] | + + + | Home Phone [...] [place] | | | | | [address] | | + + + + + Care Team Providers + +------+ + | Care Oil And Gas Exploration Technician Name | Role | Phone | [...] 2017 | | Procedural Unit at | [address] | | | | | [address] | [address] | | | | | [address] | [place], [place] | | | | | Mailcode: UHN83 | [address] | | | | | [address] | [phone] | | | | | [address] [place], [place] | | | | | | [address] | | | | | | [phone] | | | +--------+ + + + [...]
--- OUTSIDE RECORDS SUMMARY | ~2019-03-11 | XMS | Encounter Summary ---
Demographics + + + | Address | [address] | | | [place] [address] | + + + | Home Phone [...] [place] | | | | | [address] | | + + + + + | Christy Flaherty | ECON | [address] | | | | | [place] | | | | | [address] | | + + + + + Care Team Providers + +------+ + | Care Wholesale Loan Processor Name | Role | Phone | + +------+ + | Juan Demarco MD | PCP | | + +------+ + Encounter Details +--------+ + + + + | Date | Type | Department | Care Team | Description | +--------+ + + + + | 12/18/ | Orders Only | [facility] | Conversion | | | 2014 | | INFECTIOUS DISEASE | Transaction, | | | | | [address] | Provider Unknown | | | | | [place], [place] | | | | | | [address] | (Fax) | | | | | [phone] | | | +--------+ + + + [...]
--- OUTSIDE RECORDS SUMMARY | ~2019-03-11 | XMS | Encounter Summary ---
Demographics + + + | Address | [address] | | | [place] [address] | + + + | Home Phone [...] [place] | | | | | [address] | | + + + + + Care Team Providers + +------+ + | Care Car Audio Installer Name | Role | Phone | [...] | | | | [address] | [facility] | | | | | Mailcode: Center | [place], [place] | | | | | for Health and | [address] | | | | | [facility] | [phone] | | | | | [place], [place] | | | | | | [address] | | | | | | [phone] | | | +--------+ + + + [...]
--- OUTSIDE RECORDS SUMMARY | ~2019-03-11 | XMS | Encounter Summary ---
Demographics + + + | Address | [address] | | | [place] [address] | + + + | Home Phone [...] [place] | | | | | [address] | | + + + + + Care Team Providers + +------+ + | Care Cleaning Laborer Name | Role | Phone | + [...] | | pain | [address]ays[address]ree Santillan | [place] for | | | | | Elevated | [place], [place] | Health and | | | | | lipase | [address] | Healing, | | | | | Procedures | Phone: | Building 2 | | | | | CONSULT TO | [phone] | [facility] [place] | | | | | GASTROENTERO | Fax: | [address] | | | | | [place] | [phone] | Phone: | | | | | | | [phone] | | | | | | | Fax: | | | | | | | [phone] | +--------+--------+ + + + + Diagnostic [...] | | | | WWO IV | [place], [place] | for Health | | | | | [place] | [address] | and Healing, | | | | | CT SCAN OF | Phone: | Building 1, | | | | | ABDOMEN | [phone] | 3rd Floor | | | | | COMBO | Fax: | [place], [place] | | | | | | [phone] | [address] | | | | | | | Phone: | | | | | | | [phone] | | | | | | | Fax: | | | | | | | [phone] | +--------+--------+ + + + + Encounter Details +--------+ + + + + | Date | Type | Department | Care Team | Description | +--------+ + + + + | 02/24/ | Cue Selector | Endoscopic | Paras Baker | Pancreatic mass | | 2017 | | Procedural Unit at | MD Ania [address] | (Primary Dx); | | | | [address] [place] [address] | [address] | Epigastric pain; | | | | [address] | [place], [place] | Elevated lipase | | | | Mailcode: UHN83 | [address] | | | | | [address] | [phone] | | | | | [address] [place], [place] | | | | | | [address] | | | | | | [phone] | | | +--------+ + + + [...] Note | + + | Service Account, [employer] In Interface - 03/11/2017 12:43 PM [...] Note | + + | Service Account, [employer] In Interface - 02/25/2017 5:25 PM [...]
--- OUTSIDE RECORDS SUMMARY | ~2019-03-11 | XMS | Encounter Summary ---
Demographics + + + | Address | [address] | | | [place] [address] | + + + | Home Phone [...] [place] | | | | | [address] | | + + + + + | Christy Flaherty | ECON | [address] | | | | | [place] | | | | | [address] | | + + + + + Care Team Providers + +------+ + | Care Facility Practice Specialist Name | Role | Phone | + +------+ + | Juan Demarco MD | PCP | | + +------+ + Encounter Details +--------+ + + + + | Date | Type | Department | Care Team | Description | +--------+ + + + + | 03/07/ | Orders Only | [facility] | Conversion | | | 2014 | | INFECTIOUS DISEASE | Transaction, | | | | | [address] | Provider Unknown | | | | | [place], [place] | | | | | | [address] | (Fax) | | | | | [phone] | | | +--------+ + + + [...]
--- OUTSIDE RECORDS SUMMARY | ~2019-03-11 | XMS | Encounter Summary ---
Demographics + + + | Address | [address] | | | [place] [address] | + + + | Home Phone [...] [place] | | | | | [address] | | + + + + + | Christy Flaherty | ECON | [address] | | | | | [place] | | | | | [address] | | + + + + + Care Team Providers + +------+ + | Care Ocean Export Agent Name | Role | Phone | [...] | | | Convulsions/ | [address] | | | | | seizures | [address] | [place] Trotter, | | | | | ([facility]) | [address] | [place] [address] | | | | | Procedures | D | Phone: | | | | | EEG DE | [place], | [phone] | | | | | EEG,W/AWAKE | [place] [address] | Fax: | | | | | & DROWSY | Phone: | [phone] | | | | | RECORD | [phone] | | | | | | | Fax: | | | | | | | [phone] | | +--------+--------+ + + + + Encounter Details +--------+ + + + + | Date | Type | Department | Care Team | Description | +--------+ + + + + | 08/10/ | Hospital | [facility] | Kimo Baum, | Convulsions, | | 2015 | Encounter | MED CTR SLEEP | MD [address] | unspecified | | | | CENTER [address] | [address] | convulsion type | | | | [place] [address] | [place] [address] | ([facility]) | | | | [address] | [phone] | | | | | [phone] | | | +--------+ + + + [...] + | Butch Cosby MD 08/13/2014 7:46 [facility] | | | Services ELECTROENCEPHALOGRAM PATIENT INFORMATION Patient name: | | | Daysi Flaherty Date of : | | | 1965 Referring Physician: Kimo Baum MD Interpreting | | | Physician: Butch Cosby Date/Time of Study: 08/10/14, 1100 | | | TECHNICAL INFORMATION EEG Number: [id number] Electrode Placement: The | | | electroencephalogram was recorded with a Nihon-Stitcher EEG | | | recording/reading station, using [...]
--- OUTSIDE RECORDS SUMMARY | ~2019-03-11 | XMS | Encounter Summary ---
Demographics + + + | Address | [address] | | | [place] [address] | + + + | Home Phone [...] [place] | | | | | [address] | | + + + + + | Christy Flaherty | ECON | [address] | | | | | [place] | | | | | [address] | | + + + + + Care Team Providers + +------+ + | Care Marine Geologist Name | Role | Phone | + +------+ + PCP | Unavailable | + +------+ + Encounter Details +--------+ + + + + | Date | Type | Department | Care Team | Description | +--------+ + + + + | 02/09/ | Hospital | [facility] | | | | 2003 | Encounter | MED CTR SLEEP | | | | | | CENTER [address] | | | | | | [place] | | | | | | [address] | | | | | | [phone] | | | +--------+ + + + [...]
--- OUTSIDE RECORDS SUMMARY | ~2019-03-11 | XMS | Encounter Summary ---
Demographics + + + | Address | [address] | | | [place] [address] | + + + | Home Phone [...] [place] | | | | | [address] | | + + + + + Care Team Providers + +------+ + | Care Skein Yarn Drier Name | Role | Phone | + [...] 2019 | Encounter | Center at [facility] [address] | [address] | Frequency of Pain | | | | [address] | [address] | and Other Symptoms | | | | Mailcode: Center | [place], [place] | | | | | for Health and | [address] | | | | | Healing, Building [address] | [phone] | | | | | [place], [place] | | | | | | [address] | | | | | | [phone] | | | +--------+ + + + [...]
--- OUTSIDE RECORDS SUMMARY | ~2019-03-11 | XMS | Encounter Summary ---
Demographics + + + | Address | [address] | | | [place] [address] | + + + | Home Phone [...] [place] | | | | | [address] | | + + + + + Care Team Providers + +------+ + | Care Vice Chancellor Name | Role | Phone | + +------+ + | Jarvis Willard MD | PCP | | + +------+ + Encounter Details +--------+ + + + + | Date | Type | Department | Care Team | Description | +--------+ + + + + | 04/26/ | Procedure | Radiology/Imaging | | | | 2018 | Pass | Lab at [facility] [address] | | | | | | H[place] Cabrera Mailcode: | | | | | | [facility] | | | | | | Health and Healing, | | | | | | [facility] | | | | | | Floor [place], [place] | | | | | | [address] | | | | | | [phone] | | | +--------+ + + + [...]
--- OUTSIDE RECORDS SUMMARY | ~2019-03-11 | XMS | Encounter Summary ---
Demographics + + + | Address | [address] | | | [place] [address] | + + + | Home Phone [...] [place] | | | | | [address] | | + + + + + Care Team Providers + +------+ + | Care Paint Striping Machine Operator Name | Role | Phone | + +------+ + | Jarvis Willard MD | PCP | | + +------+ + Encounter Details +--------+ + + + + | Date | Type | Department | Care Team | Description | +--------+ + + + + | 02/06/ | Calender Inspector | Digestive Health | Duy Kat, | Idiopathic chronic | | 2019 | | Center at [facility] [address] | [address] | pancreatitis (HCC) | | | | [address] | [address] | (Primary Dx) | | | | Mailcode: Center | [place], [place] | | | | | for Health and | [address] | | | | | Healing, Building 2 | [phone] | | | | | [place], [place] | | | | | | [address] | | | | | | [phone] | | | +--------+ + + + [...] | LAB NAME | [facility] | | REFERENCE | | | | [place] [address] | | LAB | | | | [phone] | | | | | | | | | | | | www.Tempered Mind | | | | | | | [...] | + + + + + | [facility] | [address] | [place] [address] | | | SERVICES, SPECIAL | PARK [...] REFERENCE | 1 - 123 mg/dL | [facility] | | | SUBCLASS | INTERVAL: Immunoglobulin | | REG UNIV | | | | G Subclass 4 Access | | PTH - INTFC | | | | complete set of age- | | | | | | and/or gender-specific | | | | | | reference intervals for | | | | | | this test in the [facility] | | | | | | Laboratory Test | | | | | | Directory | | | | | | (Tempered Mind).Performed | | | | | | by [employer],[address] | | | | | | [place], [facility] | | | | | | [address] | | | | | | [phone].Scan•Jour. | | | | | | [facility], Rehan Paris MD, | | [...] [facility] | [address] | [place], [place] | | | UNIV PTH - INTFC | | [address] | | + + + + + [...] | + + + + + | [facility] | [address] | [place] [address] | | | SERVICES, CORE | PARK [...] | [place], [facility] | | PTH - INTFC | | | | [address] | | | | | | [phone].aruplab. | | | | | | comRehan [...] B: | | | | | | Scan•Jour.[facility]/ | | | | + + + + + + + + | Specimen | + + | Blood - Blood | | (substance) | + + + + + + + | Performing | Address | City/State/Zipcode | Phone Number | | Organization | | | | + + + + + | [facility] | [address] | [place], [place] | | | UNIV PTH - INTFC | | [address] | | + + + + + [...] [place] | | | | | | [address] | | | | | | [phone].aruplab. | | | | | | Rehan [...] [facility] | [address] | [place], [place] | | | UNIV PTH - INTFC | | [address] | | + + + + + [...] [facility] | [address] | [place] [address] | | | SERVICES, CORE | JEROME [...] [facility] | [address] | [place] [address] | | | SERVICES, CORE | PARK [...] | + + + + + | [facility] | [address] | [place] [address] | | | SERVICES, CORE | PARK [...] B: | | | | | | Tempered Mind/CSPerformed | | | | | | by Outsell,[address] | | | | | | [place], [facility] | | | | | | [address] | | | | | | [phone].Scan•Jour. | | | | | | Dynather[facility] MedicalRehan MD, | | | | | | [...] [facility] | [address] | [place], [place] | | | UNIV PTH - INTFC | | [address] | | + + + + + [...] | | | | | determined by [facility] | | | | | | Laboratories. See | | | | | | Compliance Statement B: | | | | | | Scan•Jour.[facility]/CSPerformed | | | | | | by Outsell,[address] | | | | | | [facility],[place] | | | | | | [address] | | | | | | [phone].Scan•Jour. | | | | | | [facility], Rehan Paris MD, | | | | [...] [facility] | [address] | [place], [place] | | | UNIV PTH - INTFC | | [address] | | + + + + + [...] | + + + + + | [facility] | [address] | [place] [address] | | | SERVICES, CORE | JEROME [...] [facility] | [address] | [place] [address] | | | SERVICES, CORE | JEROME [...] | + + + + + | [facility] | [address] | [place] [address] | | | SERVICES, CORE | JEROME [...] + | [facility] - | [address] | [place] [address] | | | [place] | | | [...] | | | LABORATORY | | | [place]GAL[place] | | | SERVICES, | | | [...] MDRD equation recommended by the National | [facility] | | Kidney Disease Education Program. [...] [facility] | [address] | [place] [address] | | | [facility] | | | | | HEALTH + HEALING | | | | + + + + + documented in this encounter Visit Diagnoses + + | Diagnosis | + + | Idiopathic chronic pancreatitis (HCC) - Primary | + + documented in this encounter"
--- OUTSIDE RECORDS SUMMARY | ~2019-03-11 | XMS | Encounter Summary ---
Demographics + + + | Address | [address] | | | [place] [address] | + + + | Home Phone [...] [place] | | | | | [address] | | + + + + + | Christy Flaherty | ECON | [address] | | | | | [place] | | | | | [address] | | + + + + + Care Team Providers + +------+ + | Care Fitness Director Name | Role | Phone | [...] + + | 09/02/ | Office | [facility] | Cecilia, Aure | Localized skin mass, | | 2012 | Visit | CARE [address] | MD Janel [address] | lump, or swelling | | | | [place], [place] | [address] | (Primary Dx); Place | | | | [address] | [place] [address] | of occurrence, | | | | [phone] | [phone] | industrial places | | | | [...] - 09/02/2012 11:58 AM PDTSee dictation # [id number] sign ed by Aure Brooks MD at 09/02/2012 12:02 PM Aure Villalta MD - 3 12:00 AM PDT , URGENT CARE NOTE EMPLOYER: Stevie. GUARANTOR: Gusbrisa. DATE OF INJURY: 08/18/2012 CLAIM #[id number] CHIEF COMPLAINT: Right hand swelling. SUBJECTIVE: The [...] Brooks MD PV / MS JOB #: [id number] signed by Aure Brooks MD at 09/07/2012 [...]
--- OUTSIDE RECORDS SUMMARY | ~2019-03-11 | XMS | Clinical Summary ---
Demographics + + + | Address | [address] | | | [place] [address] | + + + | Home Phone [...] [place] | | | | | [address] | | + + + + + Care Team Providers + +------+ + | Care Home Performance Laborer Name | Role | Phone | + +------+ + | Jarvis Willard MD | PCP | | + +------+ + Source Comments ANALI is fully live on both [facility]ulatory and [facility] InPatient.[facility] Allergies + + + + + [...] + + + + + + | Qvdpqcw-Crg-Rcy | Seizures | | 12/17/19 | Increased [...] | 01/27 | | Activ | | ixcdlh-uioozuog-okhn | mouth with meals and | tablet [...] + + + + | 02/07/ | Roving Machine Operator | Surgery | Duy Kat, | Idiopathic chronic | | 2018 | | | MD | pancreatitis (HCC) | | | | | | (Primary Dx); Left | | | | | | upper quadrant pain | +--------+ + + + + | 02/06/ | Roving Machine Operator | Surgery | Duy Kat, | Idiopathic [...] presented. | | | |Final signature: Agustina Corimer MD 02/20/2019 3:49 PM | |Preliminary: Agustina [...] | + + + + + | [facility] | [address] | [place] [address] | | | [facility] | | | | | [...] INTERPRETIVE | 70 - 180 nmol/L | [facility] | | | WHOLE | INFORMATION: [...] | | | | | determined by [facility] | | | | | | Laboratories. See | | | | | | Compliance Statement B: | | | | | | [employer]/CSPerformed | | | | | | by [employer] | | | | | | [place], [place] | | | | | | [address] | | | | | | [phone].Cylex. | | | | | | [facility], Rehan Paris MD, | | | [...] [facility] | [address] | [place], [place] | | | UNIV PTH - INTFC | | [address] | | + + + + + [...] | | | LAB NAME | Laboratories [address] [place] [address] | | REFERENCE | | | | [place] [address] | | LAB | | | | [phone] | | | | | | | | | | | | www.DyMynd | | | | | | | [...] REFERENCE | 1 - 123 mg/dL | [facility] | | | SUBCLASS | INTERVAL: Immunoglobulin | | REG UNIV | | | | G Subclass 4 Access | | PTH - INTFC | | | | complete set of age- | | | | | | and/or gender-specific | | | | | | reference intervals for | | | | | | this test in the [facility] | | | | | | Laboratory Test | | | | | | Directory | | | | | | ([employer] Systems).Performed | | | | | | by [employer] | | | | | | [place], [facility] | | | | | | [address] | | | | | | [phone].Dispoplab. | | | | | | [facility] hospitalRehan MD, | | | | | [...] [facility] | [address] | [place], [place] | | | UNIV PTH - INTFC | | [address] | | + + + + + [...] + | [facility] - | [address] | [place] [address] | | | [place] | | | [facility] | [address] | [place] [address] | | | JAMISON WORKMAN | JEROME [...] | | | | | determined by [employer] | | | | | | Laboratories. See | | | | | | Compliance Statement B: | | | | | | [employer] Systems/CSPerformed | | | | | | by [employer] | | | | | | [facility] | | | | | | [address] | | | | | | [phone].Cylex. | | | | | | com, [...] [facility] | [address] | [place], [place] | | | UNIV PTH - INTFC | | [address] | | + + + + + [...] [facility] | | | (CORKY GENOVEVA) | [facility],[address] | | REG UNIV | | | SERUM | [place], [facility] | | PTH - INTFC | | | | [address] | | | | | | [phone].aruplab. | | | | | | [facility], Rehan Paris MD, | | | [...] B: | | | | | | [facility]/CS | | | | + + + + + + + + | Specimen | + + | Blood - Blood | | (substance) | + + + + + + + | Performing | Address | City/State/Zipcode | Phone Number | | Organization | | | | + + + + + | [facility] | [address] | [place], [place] | | | UNIV PTH - INTFC | | [address] | | + + + + + [...] B: | | | | | | [employer]/CSPerformed | | | | | | by [employer] | | | | | | [place], [facility] | | | | | | [address] | | | | | | [phone].Cylex. | | | | | | com, [...] [facility] | [address] | [place], [place] | | | UNIV PTH - INTFC | | [address] | | + + + + + [...] | | | LABORATORY | | | PITCAIRN ISLANDER | | | SERVICES, | | | [...] [facility] | [address] | [place] [address] | | | [facility] | | | | | [...] LABORATORY | | | | | | [facility], | | | | | | CORE | | + +-------+ + + + + + | Specimen | + + | Blood - Blood | | (substance) | + + + + + + + | Performing | Address | City/State/Zipcode | Phone Number | | Organization | | | | + + + + + | [facility] | [address] | [place] [address] | | | SERVICES, CORE | JEROME [facility] | [address] | [place] [address] | | | SERVICES, CORE | JEROME [...] | | | | | | by [employer] | | | | | | [place], [facility] | | | | | | [address] | | | | | | [phone].Dispoplab. | | | | | | [facility] hospitalRehan MD, | | | | | [...] [facility] | [address] | [place], [place] | | | UNIV PTH - INTFC | | [address] | | + + + + + [...] + + | [facility] | [address] | [place] [address] | | | SERVICES, CORE | JEROME [...] + + + | [facility] | [address] | [place] [address] | | | SERVICES, SPECIAL | JEROME [...] [facility] | [address] | [place] [address] | | | SERVICES, CORE | PARK [...] | + + + + + | [facility] | [address] | [place] [address] | | | SERVICES, CORE | PARK [...] [facility] | [address] | [place] [address] | | | SERVICES, CORE | PARK [...] | | | + +--------+ +--------+-------+---------+--------+ | CHOPPER GUN OPERATOR MEDICAID | CHOPPER GUN OPERATOR | xxxxxxxx | 5/7/20 | | | [...] | 1966 | [phone] | [place] [address] | | | eladio | | | [...]
--- OUTSIDE RECORDS SUMMARY | ~2019-03-11 | XMS | Encounter Summary ---
Demographics + + + | Address | [address] | | | [place] [address] | + + + | Home Phone [...] [place] | | | | | [address] | | + + + + + Care Team Providers + +------+ + | Care Computer Information Science Professor Name | Role | Phone | [...]
[~2019-03-11 05:00] MED LIST changes: +KEFLEX500 MG PO
--- OUTSIDE RECORDS SUMMARY | 2019-03-11 05:02 | XMS ---
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 Security Glass Tinter Events No recent Security Events currently on file CRITERIA MET - [facility] - Has Care Guidelines - PDMP CARE PROVIDERS Sky Quach [facility] 09/06/2018-Current PHONE: Unknown Maria Elena has no Care Guidelines for this patient. Care History Medical/Surgical 09/06/2018 [facility] - Patient is currently established with [facility]. If patient is seen in the ED during business hours. Please contact CHWs at [facility]. Care Recommendation: This patient has had 5 or more Emergency Department visits in the last 12 months.\T\nbsp; Patient requires education on the scope and purpose of the ED as an acute care provider not a Primary Care Provider and should not be utilized for chronic conditions.\T\nbsp; These are guidelines and the provider should exercise clinical judgment when providing care. E.D. VISIT COUNT (12 MO.) 3 [facility] TOTAL 3 NOTE: Visits indicate total known visits. ED/UCC VISIT TRACKING (12 MO.) 03/11/2019 05:01 [facility] [place] TYPE: Emergency COMPLAINT: - SORE THROAT 09/05/2018 16:48 [facility] [place] TYPE: Emergency COMPLAINT: - LEFT HAND LACERATION/INJURY DIAGNOSES: - Laceration w/o fb of left thumb w damage to nail, init - Radiographic dye allergy status - Allergy status to oth drug/meds/biol subst status - Caught, crush, jammed, or pinched betw moving objects, init - Acquired absence of other specified parts of digestive tract - Other bed bug exterminator (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 08/31/2018 11:27 [facility] [place] TYPE: Emergency COMPLAINT: - POSS POST OP PROBLEM DIAGNOSES: - Pure hypercholesterolemia, unspecified - Allergy status to oth drug/meds/biol subst status - Acquired absence of other specified parts of digestive tract - Epilepsy, unsp, not intractable, without status epilepticus - Other chest pain - Radiographic dye allergy status - Other intermediate (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 INPATIENT VISIT TRACKING (12 MO.) 08/03/2018 14:00 [facility] [place] TYPE: Observation COMPLAINT: - LAP ELOISE W/IOC DIAGNOSES: - Disorder of brain, unspecified - Epileptic seiz rel to extrn causes, not ntrct, w/o stat epi - Vitamin D deficiency, unspecified - Altered mental status, unspecified - Other intermediate (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 - Allergy status to oth drug/meds/biol subst status - Chronic cholecystitis - Radiographic dye allergy status - Chronic pain syndrome - Arthropathic psoriasis, unspecified - Nonrheumatic aortic (valve) insufficiency - Hyperlipidemia, unspecified [email or web address]
[2019-03-11] MEDS ORDERED: CEPHALEXIN500 MG PO (05:24)
== END 2019-03-11 05:36 | disposition home or self-care (01) ==
LOC: ED 05:00
DX: J02.9 Acute pharyngitis, unspecified (principal); G43.909 Migraine, unspecified, not intractable, without status migrainosus; Z88.8 Allergy status to other drugs, medicaments and biological substances; Z91.041 Radiographic dye allergy status
CPT/HCPCS: 87081; 87880; 99283; A9270

== ENCOUNTER 2019-07-14 02:23 | Emergency (ER) | payer OTHER ==
[~2019-07-14] VITALS: Ht 177.8 cm; Wt 104.3 kg
[~2019-07-14 02:23] MED LIST changes: +CEPHALEXIN500 MG PO; +ROSUVASTATIN CA40 MG NG
--- OUTSIDE RECORDS SUMMARY | 2019-07-14 02:26 | XMS ---
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 [employer] Tester Events No recent Security Events currently on file CRITERIA MET - [facility] - Has Care Guidelines - PDMP CARE PROVIDERS Sky Quach [facility] 09/06/2018-Current PHONE: [phone] BENJY RAMIREZ Internal Medicine 03/13/2019-Current PHONE: Unknown Maria Elena has no Care Guidelines for this patient. Care History Medical/Surgical 09/06/2018 [facility] - Patient is currently established with [facility]. If patient is seen in the ED during business hours. Please contact CHWs at [facility]. Care Recommendation: This patient has had 5 [...] providing care. E.D. VISIT COUNT (12 MO.) [address] [facility] TOTAL 5 NOTE: Visits indicate total known visits. ED/UCC VISIT TRACKING (12 MO.) 07/14/2019 02:23 [facility] [place] TYPE: Emergency COMPLAINT: - SOB 06/09/2019 12:33 [facility] [place] TYPE: Emergency COMPLAINT: - DIZZINESS, HIGH BP DIAGNOSES: - Other retirement (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 - Dizziness and giddiness - Latex allergy status - Syncope and collapse - Epilepsy, unspecified, not intractable, without status epilep - Allergy status to other drugs, medicaments and biological sub - Migraine, unspecified, not intractable, without status migrai 03/11/2019 05:01 [facility] [place] TYPE: Emergency COMPLAINT: - SORE THROAT DIAGNOSES: - Radiographic dye allergy status - Allergy status to other drugs, medicaments and biological sub - Migraine, unspecified, not intractable, without status migrai - Acute pharyngitis, unspecified 09/05/2018 16:48 [facility] [place] TYPE: Emergency COMPLAINT: - LEFT HAND LACERATION/INJURY DIAGNOSES: - Laceration without foreign body of left thumb with damage to - Radiographic dye allergy status - Allergy status to other drugs, medicaments and biological sub - Caught, crushed, jammed, or pinched between moving objects, i - Acquired absence of other specified parts of digestive tract - Other river and 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 boatman (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 08/31/2018 11:27 [facility] [place] TYPE: Emergency COMPLAINT: - POSS POST OP PROBLEM DIAGNOSES: - Pure hypercholesterolemia, unspecified - Allergy status to other drugs, medicaments and biological sub - Acquired absence of other specified parts of digestive tract - Epilepsy, unspecified, not intractable, without status epilep - Other chest pain - Radiographic dye allergy status - Other retirement (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 INPATIENT VISIT TRACKING (12 MO.) 08/03/2018 14:00 [facility] [place] TYPE: Observation COMPLAINT: - LAP ELOISE W/IOC DIAGNOSES: - Disorder of brain, unspecified - Epileptic seizures related to external causes, not intractabl - Vitamin D deficiency, unspecified - Altered mental status, unspecified - Other river and lakes boatman (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
[2019-07-14] MEDS ORDERED: VITAMIN D21250 MCG PO (02:38)
--- NOTE | 2019-07-14 13:22 | EKG ---
[facility] [address] [place], [place] [address] Signed Sinus bradycardia Otherwise normal ECG When compared with ECG of 09-JUN-2019 13:45, No significant change was found Confirmed by JEAN MARIE NEFF DO ([id number]) on 07/14/2019 1:22:16 PM Electronically Signed By: JEAN MARIE NEFF DO 07/14/19 1322 PATIENT NAME: JOHNNY GRANDE Electrocardiogram DATE OF : 63 PHYSICIAN: JEAN MARIE NEFF DO REPORT #: [id number] REPORT IS CONFIDENTIAL AND NOT TO BE RELEASED WITHOUT AUTHORIZATION
== END 2019-07-14 03:40 | disposition home or self-care (01) ==
LOC: ED 02:23
DX: R00.2 Palpitations (principal); E78.00 Pure hypercholesterolemia, unspecified; G43.909 Migraine, unspecified, not intractable, without status migrainosus; Z79.899 Other long term (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
CPT/HCPCS: 71045; 80053; 83735; 84484; 85025; 93005; 93010; 99285-25

== ENCOUNTER 2019-07-31 19:58 | Emergency (ER) | payer OTHER ==
[~2019-07-31] VITALS: Ht 177.8 cm; Wt 104.3 kg
--- OUTSIDE RECORDS SUMMARY | ~2019-07-31 | XMS | Encounter Summary ---
Demographics + + + | Address | [address] | | | [place] [address] | + + + | Home Phone | | + + + | Preferred Language | Unknown | + + + | Marital Status | | + + + | Gnosticism Affiliation | ASG | + + + | Race | White | + + + | Ethnic Group | Not or | + + + Author + + + | Author | [facility] | + + + | Organization | [facility] | + + + | Address | Unknown | + + + | Phone | Unavailable | + + + Support + + + + + | Name | Relationship | Address | Phone | + + + + + | Christy Flaherty | ECON | [address] | | | | | [place] | | | | | [address] | | + + + + + Care Team Providers + +------+ + | Care Production Consultant Name | Role | Phone | + +------+ + | Jarvis Willard MD | PCP | | + +------+ + Reason for Visit Consultation (Routine) + +--------+ + + + + | Status | Reason | Specialty | Diagnoses / | Referred By | Referred To | | | | | Procedures | Contact | Contact | + +--------+ + + + + | Authorized | | Endocrinology | Diagnoses | [facility] | [facility] | | | | Diabetes & | 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 | Adult Ppv | | | | Metabolism | chronic | [address] | [address] | | | | | pancreatitis | [address]ell | [address] | | | | | ([facility]) To | Rd | Physician's | | | | | Dr. Horn or | [place], [place] | [address] | | | | | Dr. Edmonds | [address] | [address] | | | | | - Evaluate | Phone: | [place], [place] | | | | | for TPIAT | [phone] | [address] | | | | | candidacy. | Fax: | Phone: | | | | | Discussed | [phone] | [phone] | | | | | at chronic | | Fax: | | | | | pancreatitis | | [phone] | | | | | conference | | | | | | | 02/2019. | | | | | | | Pt will have | | | | | | | multiple | | | | | | | apts and | | | | | | | would | | | | | | | appreciate | | | | | | | coordinating | | | | | | | apts if | | | | | | | possible. | | | | | | | Pt is able | | | | | | | to stay in | | | | | | | town 1-2 | | | | | | | days if | | | | | | | necessary. | | | | | | | Please | | | | | | | contact Kerri | | | | | | | Roberto RN | | | | | | | w/ any | | | | | | | questions | | | | | | | [phone] | | | | | | | Procedures | | | | | | | CONSULT TO | | | | | | | DIABETES | | | | | | | CENTER | | | | | | | (ADULT) ND | | | | | | | NEW PATIENT | | | | | | | LEVEL V ND | | | | | | | EST PATIENT | | | | | | | LEVEL V | | | + +--------+ + + + + Encounter Details +--------+---------+ + + + | Date | Type | Department | Care Team | Description | +--------+---------+ + + + | 05/11/ | Office | [facility] | Maryana Edmonds MD | Acute pancreatitis, | | 2020 | Visit | Diabetes Health | [address] | unspecified | | | | Center at [facility] | [facility] | complication status, | | | | [address] | [place], [place] | unspecified | | | | [address] | [address] | pancreatitis type | | | | Phys[facility] | [phone] | (Primary Dx) | | | | [address] [place], | | | | | | [place] [address] | | | | | | [phone] | | | +--------+---------+ + + + Social History + +-------+ [...] + + documented as of this encounter Last Filed Vital Signs + + + + + | Vital Sign | Reading | Time Taken | Comments | + + + + + | Blood Pressure | 114/60 | 05/11/2019 11:05 AM | | | | | PST | | + + + + + | Pulse | 92 | 05/11/2019 11:05 AM | | | | | PST | | + + + + + | Temperature | - | - | | + + + + + | Respiratory Rate | - | - | | + + + + + | Oxygen Saturation | - | - | | + + + + + | Inhaled Oxygen | - | - | | | Concentration | | | | + + + + + | Weight | 106.6 kg (235 lb 1.6 | 05/11/2019 11:05 AM | | | | oz) | PST | | + + + + + | Height | 177.8 cm (5' 10") | 05/11/2019 11:05 AM | | | | | PST | | + + + + + | Body Mass Index | 33.73 | 05/11/2019 11:05 AM | | | | | PST | | + + + + + documented in this encounter Progress Notes Maryana Edmonds MD - 05/11/2019 11:35 AM PST [facility] PCP: Jarvis Willard MD Referring Physician: Duy Kat MD [address] [place] [address] Reason for referral: Evaluate for TPIAT HPI: Daysi Flaherty is a 53 y.o. male referred for evaluation of TPIAT. History of pancreatitis: 8-10 yrs pain, not getting better, plans to follow through with TP IAT evaluation, although he is not sure if now is the right time for this big step, but worr ies he will need to in the near future as pain continues to progress. 4/10 pain all the time now, interfering with work and life in general. Some ED visits to [facility], but no admissions for pancreatitis. His does not think he should have TPIAT as she does not think he would cope well with having diabetes Other medical history: Epilepsy Valvular endocarditis rheumatic fever Understanding of TPIAT: Moderate, has done some reading Understanding of Diabetes: low to moderate, reports he feels sorry for those people in his life that take insulin, sees this as a real burden. Diet: previously loved hamburgers, upper sorbian fries, but now eliminated most fatty foods from d iet, eats a lot of fruits, vegetables. Weight: Weight variable between 265-220, does go down with pancreatitis pain is flaring up . 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 Feet: no neuropathy Eyes: last eye exam 06/2018 Family history of diabetes: Sister has T2DM and uses insulin, started in mid adulthood Glucose control: told a few times with ED visits for pancreatitis that glucose slightly hig h, 145 highest in CE 01/2017 Current diabetes treatment: none Previous diabetes treatment: none CBG Monitoring: never Diabetes education: none Weight: variable Wt Readings from Last 4 Encounters: 05/11/19 106.6 kg (235 lb 1.6 oz) 02/08/19 106.6 kg (235 lb) 02/08/19 107 kg (235 lb 12.8 oz) 07/29/17 111.8 kg (246 lb 6.4 oz) Current Lipid therapy: none Diabetes complications review: Eyes: last eye exam 06/2018 Kidneys: No results found for: MICROALBCRE, URALBCREARAT Lab Results Component Value Date CR 0.91 02/08/2019 CR 1.04 09/05/2015 ACEi no Neuropathy: none Autonomic neuropathy: none Cardiovascular disease: none known Lipids: No results found for: CHOL, LDL, HDL, TRI, statin no ROS: Cataracts, shortness of breath, palpitations, swollen ankles, indigestion, abdominal pain, diarrhea ,blood in stools, fatigue, thyroid disease, heat intolerance, cold intolerance, sei zures, headaches, rahses, memory loss, moodiness The remainder of the 13 system ROS has been reviewed and is negative. Meds: acetaminophen 325 mg oral tablet, Take 325 mg by mouth every four hours as needed (pa in). aspirin 325 mg oral tablet, Take 325 mg by mouth once daily. bisacodyl 10 mg rectal suppository, Unwrap and insert 1 suppository rectally once daily as needed. Indications: constipation divalproex DR 500 mg oral tablet,delayed release (DR/EC), Take 2 tablets by mouth two times daily. ERGOCALCIFEROL, VITAMIN D2, (VITAMIN D ORAL), Take 50,000 Units by mouth every seven days. Takes every Wednesday folic acid 1 mg oral tablet, Take 1 mg by mouth once daily. HYDROcodone-acetaminophen (NORCO) 5-325 mg oral tablet, Take 1 tablet by mouth every six ho urs as needed for moderate pain or severe pain. Indications: Pain lamoTRIgine 25 mg oral tablet, 25 mg every other day for two weeks Indications: COMPLEX-PA RTIAL EPILEPSY wlfpqg-dkyqjann-kybdxen (VIOKACE) 20,880-78,300- 78,300 unit oral tablet, Take 3 tablets by mouth with meals and 1 tablets by mouth with snacks. methotrexate 2.5 mg oral tablet, Take 10 mg by mouth every seven days. Takes every Indications: PSORIATIC ARTHRITIS mometasone 0.1 % topical cream, Apply 1 applicator to affected area once daily. Apply a thi n film to ears daily (indication: psoriasis) omeprazole 40 mg oral capsule,delayed release(DR/EC), Take 1 capsule by mouth once daily. A dminister 30 to 60 minutes before meals polyethylene glycol (MIRALAX) 17 gram/dose oral powder, Mix 17 g in liquid and drink two ti mes daily. Indications: constipation pregabalin 75 mg oral capsule, Take 1 capsule by mouth two times daily. Max: 600 mg/day rosuvastatin 40 mg oral tablet, Take 40 mg by mouth once daily. senna-docusate 4.3-25 oral tablet, Take 1 each by mouth once daily. Vitamin A-Vitamin C-Vit E-Se (ANTIOXIDANT A/C/E/SELENIUM) oral capsule, Take 1 tablet by [facility] once daily. Allergies: Allergies Allergen Reactions Piroxicam Rash Pt mentions he developed a rash while on this medication. Resolved immediately upon disco ntinue. Amitiza [Lubiprostone] Cough Meloxicam Diarrhea Bowel incontinence Icwizoe-Jfr-Epa Reductase Inhibitors Seizures Increased frequency of seizures, though pts mentions, pt had an infection during the time the pt was started on a statin and this may have been the cause also. Provider never t ried a statin again. Problem List: Patient Active Problem List Diagnosis Localization-related symptomatic epilepsy and epileptic syndromes with complex partial seizures, intractable, without status epilepticus (HCC) Cerebral cavernoma Psoriasis with arthropathy (HCC) Psoriasis Aortic valve insufficiency Valvular endocarditis Rheumatic fever PMH: Past Medical History: Diagnosis Date Epilepsy (HCC) GERD (gastroesophageal reflux disease) Headache Rheumatic fever completed therapy in 2016 Sleep apnea SOB (shortness of breath) Social History: Social History Socioeconomic History Marital status: Spouse name: Not on file Number of children: Not on file Years of education: Not on file Highest education level: Not on file Occupational History Not on file Social Needs Financial resource strain: Not on file Food insecurity: Worry: Not on file Inability: Not on file Transportation needs: Medical: Not on file Non-medical: Not on file Tobacco Use Smoking status: Never Smoker Smokeless tobacco: Former User Types: Chew Substance and Sexual Activity Alcohol use: No Alcohol/week: 0.0 standard drinks Drug use: No Sexual activity: Not on file Lifestyle Physical activity: Days per week: Not on file Minutes per session: Not on file Stress: Not on file Relationships Social connections: Talks on phone: Not on file Gets together: Not on file Attends mosque service: Not on file Active member of club or organization: Not on file Attends meetings of clubs or organizations: Not on file Relationship status: Not on file Other Topics Concern Not on file Social History Narrative Not on file Family History: Sister has T2DM on insulin Family History Problem Relation Diabetes Other Cancer Other Asthma Other Genetic Other Psychiatry Other Heart Attack Other PE: Vitals: BP 114/60 | Pulse 92 | Ht 1.778 m (5' 10") | Wt 106.6 kg (235 lb 1.6 oz) | BMI 33.73 kg/m | BSA 2.29 m General: alert, pleasant, NAD, here with his HEENT: perrla, eomi, sclerae white, conjunctivae pink and moist Skin: no lesions or bruising Psych: normal mood and affect Labs: Lab Results Component Value Date A1C 5.2 02/08/2019 No results for input(s): CHOL, LDL, HDL, TRI in the last 8640 hours. Recent Labs 02/08/19 1056 AST 28 ALT 47 TBILI 0.8 AP 109 ALB 3.8 TP 7.1 Recent Labs 02/08/19 1056 GLU 101* BUN 14 CR 0.91 ALB 3.8 CA 8.9 NA 141 K 3.9 CL 103 BICARB 30 No results found for: TSH No results found for: MICROALBCRE, URALBCREARAT No results found for: MICROALBUMIN Lab Results Component Value Date [id number] 15.9 02/08/2019 Assessment: 53 y.o. here for consultation regarding TPIAT candidacy. Risk for diabetes inde pendent of the TPIAT procedure is felt to be low to moderate given family history, weight, A 1c is low although some slightly elevated CBGs in the past is reflective of some slight dysf unciton here. We discussed the chance of development of diabetes after TPAIT if the islets do not survive the transplant or if the amount of islets wain over time. We discusseded the course of TPIA T in relation to what this might mean for her blood sugars and the development of diabetes. This diabetes will probably look like type 1 diabetes in that the body wont make insulin (lo wers blood sugar) and glucagon (raises blood sugar) normally. This can mean variable blood s ugars and would likely need to be managed with multiple daily injections of insulin and chec zo blood sugar multiple times per day. We discusseded the course of TPIAT in relation to what this might mean for blood sugars. I advised that she should be prepared for ongoing treatment with multiple daily injections of insulin and checking blood sugar multiple times per day. We discussed that glucose manageme nt with tube feeds after surgery can be challenging and require frequent insulin adjustment. We went over typical pre and post operative follow up plans with our clinic (1-2 months bef [facility] surgery for diabetes education, 2 weeks before for MMT, then 3,6,then yearly MMT after omar potter. We discussed briefly 1 and 10 year outcomes after TPIAT from [facility] data ( J Am Jill Surg. 2019 Apr;228(4):329-339) with approximately 75% of patient with insulin inde pendence or partial graft function at 1 year, and 27% with insulin independence at 1 year. T his leaves approximately 1/4 of patients with graft failure which would look most like type 1 diabetes. 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 We discussed that people life full lives wi th diabetes although some also do not cope well with this burden. Also, he may eventually en d up with diabetes independent of a pancreatectomy from the pancreatitis. Plan: -Will arrange for patient to meet with Mercedez PRASAD RN to do practice insulin injection, CBG ch ecks so he can get a better sense of what this would be like - he is a reasonable candidate for TPIAT from a diabetes perspective. Return as needed, if decideds to proceed with TPIAT. Maryana Edmonds MD [facility] Division of Endocrinology Pager [phone] documented in this enc ounter Plan of Treatment Not on filedocumented as of this encounter Visit Diagnoses + + | Diagnosis | + + | Acute pancreatitis, unspecified complication status, unspecified pancreatitis type - | | Primary | + + documented in this encounter
--- OUTSIDE RECORDS SUMMARY | ~2019-07-31 | XMS | Encounter Summary ---
Demographics + + + | Address | [address] | | | [place] [address] | + + + | Home Phone | | + + + | Preferred Language | Unknown | + + + | Marital Status | | + + + | Catholic Affiliation | 1061 | + + + | Race | Unknown | + + + | Ethnic Group | Unknown | + + + Author + + + | Author | [facility] | | | and [place] | + + + | Organization | [facility] | | [...] [place] | | | | | [address] | | + + + + + | Christy Flaherty | ECON | [address] | | | | | [place] | | | | | [address] | | + + + + + Care Team Providers + +------+ + | Care Insurance Agency Sales Manager Name | Role | Phone | + +------+ + | Juan Demarco MD | PCP | | + +------+ + Encounter Details +--------+ + + + + | Date | Type | Department | Care Team | Description | +--------+ + + + + | 04/08/ | Orders Only | [facility] | Sol Fonscea, | | | 2016 | | CARDIOLOGY BRITNEY | [address] | | | | | [address] | [address] [place], [place] | | | | | [place], [place] | [address] | | | | | [address] | [phone] | | | | | [phone] | | | +--------+ + + + [...] Not on filedocumented as of this encounter Procedures + +--------+ + + + | Procedure Name | Priori | Date/Time | Associated Diagnosis | Comments | | | ty | | | | + +--------+ + + + | EXTERNAL LAB: CBC | Routin | 04/08/2015 | | Results for this | | | e | 8:43 AM | | procedure are in the | | | | PST | | results section. | + +--------+ + + + | VITAMIN D, | Routin | 04/08/2015 | | Results for this | | DEFICIENCY SCREEN | e | 8:43 AM | | procedure are in the | | (25-HYDROXY) | | PST | | results section. | + +--------+ + + + | SEDIMENTATION RATE, | Routin | 04/08/2015 | | Results for this | | AUTOMATED | e | 8:43 AM | | procedure are in the | | | | PST | | results section. | + +--------+ + + + | C-REACTIVE PROTEIN | Routin | 04/08/2015 | | Results for this | | | e | 8:43 AM | | procedure are in the | | | | PST | | results section. | + +--------+ + + + | COMPREHENSIVE | Routin | 04/08/2015 | | Results for this | | METABOLIC PANEL | e | 8:43 AM | | procedure are in the | | | | PST | | results section. | + +--------+ + + + documented in this encounter Results Vitamin D, Deficiency Screen (25-Hydroxy) (04/08/2015 8:43 AM PST) + +--------+ + + + | Component | Value | Ref Range | Performed | Pathologist | | | | | At | Signature | + +--------+ + + + | Vit D, | 11 (A) | 30 - 100 | EXTERNAL | | | 25-Hydroxy | | | LAB | | + +--------+ + + + + + | Specimen | + + | Blood specimen | | (specimen) | + + + +---------+ + + | Performing | Address | City/State/Zipcode | Phone Number | | Organization | | | | + +---------+ + + | EXTERNAL LAB | | | | + +---------+ + + Sedimentation rate, automated (04/08/2015 8:43 AM PST) + +-------+ + + + | Component | Value | Ref Range | Performed | Pathologist | | | | | At | Signature | + +-------+ + + + | Sed Rate | 0 | 0 - 15 | EXTERNAL | | | | | | LAB | | + +-------+ + + + + + | Specimen | + + | Blood specimen | | (specimen) | + + + +---------+ + + | Performing | Address | City/State/Zipcode | Phone Number | | Organization | | | | + +---------+ + + | EXTERNAL LAB | | | | + +---------+ + + External Lab: CBC (04/08/2015 8:43 AM PST) + + + + + + | Component | Value | Ref Range | Performed | Pathologist | | | | | At | Signature | + + + + + + | WBC | 5.8 | 4.5 - 11.0 10 | EXTERNAL | | | | | | LAB | | + + + + + + | Red Blood | 5.35 | 4.3 - 5.7 10 | EXTERNAL | | | Cells | | | LAB | | | Counted | | | | | + + + + + + | Hemoglobin | 16.2 | 13.5 - 18.0 | EXTERNAL | | | | | g/dL | LAB | | + + + + + + | Hematocrit, | 48.4 | 41 - 50 % | EXTERNAL | | | POC | | | LAB | | + + + + + + | MCV | 90.4 | 81 - 99 fL | EXTERNAL | | | | | | LAB | | + + + + + + | MCH | 30 | 27 - 33 pg | EXTERNAL | | | | | | LAB | | + + + + + + | MCHC | 33 | 30 - 36 g/dL | EXTERNAL | | | | | | LAB | | + + + + + + | Platelet | 168 | 140 - 440 K/ L | EXTERNAL | | | Count | | | LAB | | | Plasma | | | | | + + + + + + | RDW-CV | 12.4 | 10.5 - 15.0 % | EXTERNAL | | | | | | LAB | | + + + + + + | MPV | | fL | EXTERNAL | | | | | | LAB | | + + + + + + | Differentia | | | EXTERNAL | | | l Type | | | LAB | | + + + + + + | % Segmented | 41.2 | 39 - 80 % | EXTERNAL | | | | | | LAB | | | Neutrophils | | | | | + + + + + + | % | 44.5 (A) | 24 - 44 % | EXTERNAL | | | Lymphocytes | | | LAB | | + + + + + + | % Monocytes | 10.0 | 0 - 12 % | EXTERNAL | | | | | | LAB | | + + + + + + | % | 3.7 | 0 - 6 % | EXTERNAL | | | Eosinophils | | | LAB | | + + + + + + | % Basophils | 0.6 | 0 - 2 % | EXTERNAL | | | | | | LAB | | + + + + + + | Absolute | | / L | EXTERNAL | | | Segmented | | | LAB | | | Neutrophils | | | | | + + + + + + | Absolute | | / L | EXTERNAL | | | Lymphocytes | | | LAB | | + + + + + + | Absolute | | / L | EXTERNAL | | | Monocytes | | | LAB | | + + + + + + | Absolute | | / L | EXTERNAL | | | Eosinophils | | | LAB | | + + + + + + | Absolute | | / L | EXTERNAL | | | Basophils | | | LAB | | + + + + + + + + | Specimen | + + | Blood specimen | | (specimen) | + + + +---------+ + + | Performing | Address | City/State/Zipcode | Phone Number | | Organization | | | | + +---------+ + + | EXTERNAL LAB | | | | + +---------+ + + C-Reactive Protein (04/08/2015 8:43 AM PST) + + + + + + | Component | Value | Ref Range | Performed | Pathologist | | | | | At | Signature | + + + + + + | CRP | 31.0 (A) | 0 - 5 mg/dL | EXTERNAL | | | | | | LAB | | + + + + + + + + | Specimen | + + | Blood specimen | | (specimen) | + + + +---------+ + + | Performing | Address | City/State/Zipcode | Phone Number | | Organization | | | | + +---------+ + + | EXTERNAL LAB | | | | + +---------+ + + Comprehensive Metabolic Panel (04/08/2015 8:43 AM PST) + +--------+ + + + | Component | Value | Ref Range | Performed | Pathologist | | | | | At | Signature | + +--------+ + + + | Glucose, | 90 | 70 - 100 mg/dL | EXTERNAL | | | Fasting | | | LAB | | + +--------+ + + + | BUN | 15 | 6 - 23 mg/dL | EXTERNAL | | | | | | LAB | | + +--------+ + + + | Creatinine | 0.96 | 0.70 - 1.33 | EXTERNAL | | | | | mg/dL | LAB | | + +--------+ + + + | BUN/Creatin | 15.6 | 6.0 - 28.6 | EXTERNAL | | | ine Ratio | | | LAB | | + +--------+ + + + | Calcium | 8.9 | 8.4 - 10.2 | EXTERNAL | | | | | mg/dL | LAB | | + +--------+ + + + | Protein, | 6.2 | 6.0 - 8.0 g/dL | EXTERNAL | | | Total | | | LAB | | + +--------+ + + + | Albumin | 3.9 | 3.5 - 5.0 | EXTERNAL | | | | | | LAB | | + +--------+ + + + | Globulin | 2.3 | 1.8 - 3.5 | EXTERNAL | | | | | | LAB | | + +--------+ + + + | A/G Ratio | 1.7 | 1.1 - 2.4 | EXTERNAL | | | | | | LAB | | + +--------+ + + + | Bilirubin | 0.5 | 0.0 - 1.2 mg/dL | EXTERNAL | | | Total | | | LAB | | + +--------+ + + + | ALP, | 62 | 30 - 128 | EXTERNAL | | | External | | | LAB | | + +--------+ + + + | ALT | 13 | 7 - 52 U/L | EXTERNAL | | | | | | LAB | | + +--------+ + + + | AST | 11 (A) | 13 - 39 U/L | EXTERNAL | | | | | | LAB | | + +--------+ + + + | Na | 140 | 132 - 143 | EXTERNAL | | | | | mmol/L | LAB | | + +--------+ + + + | K | 4.2 | 3.6 - 5.1 | EXTERNAL | | | | | mmol/L | LAB | | + +--------+ + + + | Cl | 101 | 95 - 112 mmol/L | EXTERNAL | | | | | | LAB | | + +--------+ + + + | CO2 | 27 | 19 - 31 mmol/L | EXTERNAL | | | | | | LAB | | + +--------+ + + + | Anion Gap | 16.2 | 7 - 21 mmol/L | EXTERNAL | | | | | | LAB | | + +--------+ + + + | Estimated | 83 | 60 mg/dL | EXTERNAL | | | GFR | | | LAB | | + +--------+ + + + + + | Specimen | + + | Blood specimen | | (specimen) | + + + +---------+ + + | Performing | Address | City/State/Zipcode | Phone Number | | Organization | | | | + +---------+ + + | EXTERNAL LAB | | | | + +---------+ + + documented in this encounter Visit Diagnoses Not on filedocumented in this encounter"
--- OUTSIDE RECORDS SUMMARY | ~2019-07-31 | XMS | Encounter Summary ---
Demographics + + + | Address | [address] | | | [place] [address] | + + + | Home Phone | | + + + | Preferred Language | Unknown | + + + | Marital Status | | + + + | Caodaism Affiliation | 1061 | + + + | Race | Unknown | + + + | Ethnic Group | Unknown | + + + Author + + + | Author | [facility] | | | and [place] | + + + | Organization | [facility] | | | and [place] | + + + | Address | Unknown | + + + | Phone | Unavailable | + + + Support + + + + + | Name | Relationship | Address | Phone | + + + + + | Christy Flaherty | ECON | [address] | | | | | [place] | | | | | [address] | | + + + + + | Christy Flaherty | ECON | [address] | | | | | [place] | | | | | [address] | | + + + + + Care Team Providers + +------+ + | Care Supervisor Whipped Topping Name | Role | Phone | + +------+ + | Juan Demarco MD | PCP | | + +------+ + Reason for Visit + + + | Reason | Comments | + + + | Hand Injury | | + + + Encounter Details +--------+---------+ + + + | Date | Type | Department | Care Team | Description | +--------+---------+ + + + | 09/16/ | Office | [facility] | [place] | Contusion of right | | 2012 | Visit | OCCUPATIONAL HEALTH | [address] | hand (Primary Dx); | | | | [address] | [facility] | Place of occurrence, | | | | [address] [facility] | [place] [address] | industrial places | | | | [place], [place] | [phone] | and premises | | | | [address] | | | | | | [phone] | | | +--------+---------+ + + + [...] + + + | Blood Pressure | 120/68 | 09/16/2012 8:48 AM | | | | | PDT | | + + + + + | Pulse | 60 | 09/16/2012 8:48 AM | | | | | PDT | | + + + + + | Temperature | 36.4 C (97.6 F) | 09/16/2012 8:48 AM | | | | | PDT | | + + + + + | Respiratory Rate | 16 | 09/16/2012 8:48 AM | | | | | PDT | | + + + + + | Oxygen Saturation | - | - | | + + + + + | Inhaled Oxygen | - | - | | | Concentration | | | | + + + + + | Weight | 98 kg (216 lb) | 09/16/2012 8:48 AM | | | | | PDT | | + + + + + | Height | 170.2 cm (5' 7") | 09/16/2012 8:48 AM | | | | | PDT | | + + + + + | Body Mass Index | 33.83 | 09/16/2012 8:48 AM | | | | | PDT | | + + + + + documented in this encounter Progress Notes [place] MD - 09/16/2012 5:11 PM PDTSee dictation [id number] christopher d by [place] MD at 09/16/2012 5:12 PM PDTWaring, [place] MD - 09/17/19 13 12:00 AM PDT OCCUPATIONAL MEDICINE [address] [place] [address] [place] [address] FAX: [phone] OFFICE VISIT : 1965 Claim number: [id number] Date of injury: 08/18/2012 Employer: [employer] Guarantor: Merlyn COMPLAINT: Right hand injury, initial evaluation with me, followup care. S: The injured worker is 47 years of age, here for a scheduled followup. 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 He initially thought that he had broken his carney d or finger, but x-rays proved to be negative, and he has slow, steady improvement. He does note the development of a subcutaneous soft tissue mass, more or less at the distal aspect martin, between the ring and the index fingers, or more or less in the same spot where his contusion occurred. It has remained approximately the same size. It was initially somewhat uncomfortable, but now, it is not causing any pain, and it is not interfering with work. Lilliam quach expresses only concern about what it actually represents and whether there are any specif ic problems that he should anticipate with this. He has returned to doing most of his regul ar work responsibilities. His general health is good. MEDICATIONS: Include: Valproic acid. ALLERGIES: HE IS NOT ALLERGIC TO ANY MEDICATIONS. PAST SURGICAL HISTORY: He has had a previous surgery on his right forearm over 30 years ag o. SOCIAL HISTORY: He has worked for his current employer for a 5-year period of time. He wolfe s not smoke or drink alcohol. FAMILY MEDICAL HISTORY: There is a family history of diabetes, heart disease, high blood pressure. REVIEW OF SYSTEMS: His own personal review of systems was positive for rashes, stiffness, numbness, muscle pain. OBJECTIVE VITAL SIGNS: Unremarkable. GENERAL: No acute distress. EXTREMITY EXAMINATION: Right hand is normal to inspection, other than in the palmar aspect there is a visible soft tissue prominence distal to the medial palmar crease, more or less at the base of the metacarpal pad, between the index and ring finger. There is no tenderne ss or inflammatory reaction. It is movable. He has good range of motion. There is no trigge ring. He has good distal neurocirculatory response. IMAGING / DIAGNOSTICS: None indicated based on our evaluation this date. PENDING INTERVENTIONS: Continue conservative measures, local warm packs, and follow up to evaluate clinical course. He voices understanding and agreement with that. A: Contusion and sprain, with soft tissue mass, palmar aspect right hand, satisfactory pr ogress with conservative treatment. P: The injured worker is going to continue with regular work responsibilities, and we will see him back in a 4 to 6-week period of time to review clinical progress or p.r.n. develop ment of problems. He voices understanding and agreement. E: Regular work. R: The restrictions are: No work restrictions. Impairment undetermined. He is not deemed MMI status as of yet. Hollie Brooks MD / [facility] JOB #: [id number] signed by [place] MD at 10/08/2012 7:58 AM PDTd ocumented in this encounter Plan of Treatment Not on filedocumented as of this encounter Visit Diagnoses + + | Diagnosis | + + | Contusion of right hand - Primary Contusion of hand(s) | + + | Place of occurrence, industrial places and premises | + + documented in this encounter
--- OUTSIDE RECORDS SUMMARY | ~2019-07-31 | XMS | Encounter Summary ---
Demographics + + + | Address | [address] | | | [place] [address] | + + + | Home Phone | | + + + | Preferred Language | Unknown | + + + | Marital Status | | + + + | Temple Affiliation | ASG | + + + | Race | White | + + + | Ethnic Group | Not or | + + + Author + + + | Author | [facility] | + + + | Organization | [facility] | + + + | Address | Unknown | + + + | Phone | Unavailable | + + + Support + + + + + | Name | Relationship | Address | Phone | + + + + + | Christy Flaherty | ECON | [address] | | | | | [place] | | | | | [address] | | + + + + + Care Team Providers + +------+ + | Care Ferryboat Captain Name | Role | Phone | + +------+ + | Jarvis Willard MD | PCP | | + +------+ + Encounter Details +--------+ + + + + | Date | Type | Department | Care Team | Description | +--------+ + + + + | 06/24/ | Telephone | Endoscopic | Taiwo Tilley, | | | 2017 | | Procedural Unit at | [address] | | | | | [place] [address] | [facility] | | | | | [address] | [place], [place] | | | | | [place], | [address] | | | | | 4th floor [place], | [phone] | | | | | [place] [address] | | | | | | [phone] | | | +--------+ + + + [...]
--- OUTSIDE RECORDS SUMMARY | ~2019-07-31 | XMS | Encounter Summary ---
Demographics + + + | Address | [address] | | | [place] [address] | + + + | Home Phone | | + + + | Preferred Language | Unknown | + + + | Marital Status | | + + + | Presybeterian Affiliation | 1061 | + + + | Race | Unknown | + + + | Ethnic Group | Unknown | + + + Author + + + | Author | [facility] | | | and [place] | + + + | Organization | [facility] | | | and [...] [place] | | | | | [address] | | + + + + + | Christy Grande | ECON | [address] | | | | | [place] | | | | | [address] | | + + + + + Care Team Providers + +------+ + | Care Can Solderer Name | Role | Phone | + +------+ + | Juan Demarco MD | PCP | | + +------+ + Encounter Details +--------+ + + + + | Date | Type | Department | Care Team | Description | +--------+ + + + + | 05/22/ | Orders Only | [facility] | Jb Mendiola, | | | 2015 | | CARDIOLOGY FELIBERTO | [address] | | | | | ECHO [address] | [place] [address] | | | | | [place] | [phone] | | | | | [address] | | | | | | [phone] | | | +--------+ + + + [...] + +--------+ + + + | ECHO COMPLETE | Routin | 05/22/2015 | | Results for this | | | e | 3:12 PM | | procedure are in the | | | | PST | | results section. | + +--------+ + + + documented in this encounter Results ECHO Complete (05/22/2015 3:12 PM PST) + + | Specimen | + + | | + + + + + | Impressions | Performed At | + + + | 1. This was a technically difficult study with suboptimal views. 2. | | | Overall left ventricular systolic function is low-normal with, an EF | | | between 50 - 55 %. 3. There is biur-vf-cvkgghxe aortic regurgitation. | | + + + + + + | Narrative | Performed At | + + + | Patient Name: JOHNNY GRANDE Date of : 1965 | | | Performing Physician: Jb Mendiola MD, | | | FACC, FACP, FASNC | | | | | | INDICATIONS aov disorder CONCLUSIONS | | | 1. This was a technically difficult study with suboptimal views. 2. | | | Overall left ventricular systolic function is low-normal with, an EF | | | between 50 - 55 %. 3. There is wqzn-qa-ppexczqd aortic regurgitation. | | | FINDINGS -------- ECG rhythm: Sinus rhythm. Study: A | | | 2-dimensional transthoracic echocardiogram with m-mode, spectral and | | | color flow Doppler was perfomed. Study: This was a technically | | | difficult study with suboptimal views. Left Ventricle: Overall left | | | ventricular systolic function is low-normal with, an EF between 50 - | | | 55 %. Right Ventricle: The RV was not well visualized. Left Atrium: | | | The left atrium is normal in size. Right Atrium: The right atrium was | | | not well visualized. Aortic Valve: The aortic valve was not well | | | visualized. Aortic Valve: The aortic valve is moderately calcified. | | | Aortic Valve: There is pifp-jy-xmecnpbs aortic regurgitation. Mitral | | | Valve: The mitral valve appears normal. Mitral Valve: No mitral | | | regurgitation. Tricuspid Valve: The tricuspid valve was not well | | | visualized. Tricuspid Valve: Trace tricuspid regurgitation present. | | | Tricuspid Valve: Pulmonary artery systolic pressure could not be | | | assessed due to the absence of adequate TR jet. Pulmonic Valve: The | | | pulmonic valve was not well visualized. Pericardium: There is no | | | pericardial effusion. IVC/Hepatic Veins: The inferior vena cava is | | | normal in size and collapses > 50 % with sniff, indicating normal | | | central venous pressures. Mass: No mass visualized Thrombus: No clot | | | visualized Septum: No ASD observed. Septum: No VSD observed. | | | MEASUREMENTS Ao asc: 2.91 cm IVC: 1.60 cm | | | EDV(Teich): 141.07 ml IVSd: 0.91 cm LVIDd: 5.39 cm LVPWd: | | | 1.06 cm LVOT Area: 4.42 cm2 LVOT Diam: 2.37 cm %FS: | | | 33.40 % EF(Teich): 61.58 % ESV(Teich): 54.19 ml LVIDs: | | | 3.59 cm SV(Teich): 86.87 ml LAESV(A-L): 39.88 ml LAESV Index | | | (A-L): 17.19 ml/m2 LAAs A2C: 14.25 cm2 LAESV A-L A2C: 37.04 | | | ml LALs A2C: 4.65 cm LAAs A4C: 15.34 cm2 LAESV A-L A4C: | | | 39.93 ml LALs A4C: 5.00 cm Ao Diam: 3.20 cm LA Diam: 4.49 | | | cm LA/Ao: 1.40 AV maxP.10 mmHg AV meanP.59 mmHg | | | AV Vmax: 1.81 m/s AV Vmean: 1.22 m/s AV VTI: 32.95 cm JENNI | | | Vmax: 1.92 cm2 JENNI (VTI): 2.49 cm2 AVAI (Vmax): 0.00 cm2/m2 | | | AVAI (VTI): 0.00 cm2/m2 LVOT maxP.47 mmHg LVOT meanPG: | | | 1.61 mmHg LVSI Dopp: 35.43 ml/m2 LVSV Dopp: 82.19 ml LVOT | | | Vmax: 0.78 m/s LVOT Vmean: 0.61 m/s LVOT VTI: 18.58 cm | | | Septal e': 0.06 m/s Lateral e': 0.08 m/s PV maxP.90 | | | mmHg PV Vmax: 1.10 m/s Extension Educator: MIKI Authenticated by: | | | Jb Mendiola MD, FACC, FACP, FASNC Report Date/Time: 05-22-2015 | | | 16:37:35 | | + + + + + | Procedure Note | + + | Kj, Rad Conversion - 11/18/2018 11:06 AM PDT Patient Name: Jen GRANDE of | | : 1965 Performing Physician: Jb Mendiola MD, FAC, | | FACP, | | FASNC INDICATIONS--------- | | --aov disorder CONCLUSIONS 1. This was a technically difficult study with | | suboptimal views.2. Overall left ventricular systolic function is low-normal with, an EF | | between 50 - 55 %.3. There is mldd-sx-ujcdfxkl aortic regurgitation. | | FINDINGS--------ECG rhythm: Sinus rhythm.Study: A 2-dimensional transthoracic | | echocardiogram with m-mode, spectral and color flow Doppler was perfomed.Study: This was | | a technically difficult study with suboptimal views.Left Ventricle: Overall left | | ventricular systolic function is low-normal with, an EF between 50 - 55 %.Right | | Ventricle: The RV was not well visualized.Left Atrium: The left atrium is normal in | | size.Right Atrium: The right atrium was not well visualized.Aortic Valve: The aortic | | valve was not well visualized.Aortic Valve: The aortic valve is moderately | | calcified.Aortic Valve: There is meir-kr-bicvftbq aortic regurgitation.Mitral Valve: The | | mitral valve appears normal.Mitral Valve: No mitral regurgitation.Tricuspid Valve: The | | tricuspid valve was not well visualized.Tricuspid Valve: Trace tricuspid regurgitation | | present.Tricuspid Valve: Pulmonary artery systolic pressure could not be assessed due to | | the absence of adequate TR jet.Pulmonic Valve: The pulmonic valve was not well | | visualized.Pericardium: There is no pericardial effusion.IVC/Hepatic Veins: The inferior | | vena cava is normal in size and collapses > 50 % with sniff, indicating normal central | | venous pressures.Mass: No mass visualizedThrombus: No clot visualizedSeptum: No ASD | | observed.Septum: No VSD observed. MEASUREMENTS Ao asc: 2.91 cmIVC: 1.60 | | cmEDV(Teich): 141.07 mlIVSd: 0.91 cmLVIDd: 5.39 cmLVPWd: 1.06 cmLVOT Area: | | 4.42 [id number] Diam: 2.37 cm%FS: 33.40 %EF(Teich): 61.58 %ESV(Teich): 54.19 | | mlLVIDs: 3.59 cmSV(Teich): 86.87 mlLAESV(A-L): 39.88 mlLAESV Index (A-L): 17.19 | | ml/m2LAAs A2C: 14.25 nt0REIHX A-L A2C: 37.04 mlLALs A2C: 4.65 cmLAAs A4C: 15.34 | | [id number] A-L A4C: 39.93 mlLALs A4C: 5.00 cmAo Diam: 3.20 cmLA Diam: 4.49 | | cmLA/Ao: 1.40AV maxP.10 mmHgAV meanP.59 mmHgAV Vmax: 1.81 m/Stormy Vmean: | | 1.22 m/Stormy VTI: 32.95 cmAVA Vmax: 1.92 cm2AVA (VTI): 2.49 qu6IHUV (Vmax): 0.00 | | cm2/m2AVAI (VTI): 0.00 cm2/m2LVOT maxP.47 mmHgLVOT meanP.61 mmHgLVSI | | Dopp: 35.43 ml/m2LVSV Dopp: 82.19 mlLVOT Vmax: 0.78 m/sLVOT Vmean: 0.61 m/sLVOT | | VTI: 18.58 cmSeptal e': 0.06 m/sLateral e': 0.08 m/sPV maxP.90 mmHgPV Vmax: | | 1.10 m/s Extension Educator: MIKIAuthenticated by: Jb Mendiola MD, FACC, FACP, FASNCReport | | Date/Time: 05-22-2015 16:37:35 IMPRESSION: 1. This was a technically difficult study | | with suboptimal views.2. Overall left ventricular systolic function is low-normal with, | | an EF between 50 - 55 %.3. There is gdsw-sh-gjictzbr aortic regurgitation. | |IVC/Hepatic Veins: The inferior vena cava is normal in size and collapses > 50 % with sniff , indicating normal central venous pressures. | |Mass: No mass visualized | |Thrombus: No clot visualized | |Septum: No ASD observed. | |Septum: No VSD observed. | | | |MEASUREMENTS | | | |Ao asc: 2.91 cm | |IVC: 1.60 cm | |EDV(Teich): 141.07 ml | |IVSd: 0.91 cm | |LVIDd: 5.39 cm | |LVPWd: 1.06 cm | |LVOT Area: 4.42 cm2 | |LVOT Diam: 2.37 cm | |%FS: 33.40 % | |EF(Teich): 61.58 % | |ESV(Teich): 54.19 ml | |LVIDs: 3.59 cm | |SV(Teich): 86.87 ml | |LAESV(A-L): 39.88 ml | |LAESV Index (A-L): 17.19 ml/m2 | |LAAs A2C: 14.25 cm2 | |LAESV A-L A2C: 37.04 ml | |LALs A2C: 4.65 cm | |LAAs A4C: 15.34 cm2 | |LAESV A-L A4C: 39.93 ml | |LALs A4C: 5.00 cm | |Ao Diam: 3.20 cm | |LA Diam: 4.49 cm | |LA/Ao: 1.40 | |AV maxP.10 mmHg | |AV meanP.59 mmHg | |AV Vmax: 1.81 m/s | |AV Vmean: 1.22 m/s | |AV VTI: 32.95 cm | |JENNI Vmax: 1.92 cm2 | |JENNI (VTI): 2.49 cm2 | |AVAI (Vmax): 0.00 cm2/m2 | |AVAI (VTI): 0.00 cm2/m2 | |LVOT maxP.47 mmHg | |LVOT meanP.61 mmHg | |LVSI Dopp: 35.43 ml/m2 | |LVSV Dopp: 82.19 ml | |LVOT Vmax: 0.78 m/s | |LVOT Vmean: 0.61 m/s | |LVOT VTI: 18.58 cm | |Septal e': 0.06 m/s | |Lateral e': 0.08 m/s | |PV maxP.90 mmHg | |PV Vmax: 1.10 m/s | | | |Extension Educator: RK | |Authenticated by: Jb Mendiola MD, FACC, FACP, FASWV | |Report Date/Time: 05-22-2015 16:37:35 | | | |IMPRESSION: | |1. This was a technically difficult study with suboptimal views. | |2. Overall left ventricular systolic function is low-normal with, an EF between 50 - 55 %. | |3. There is iziw-sd-jafbugqw aortic regurgitation. | + + documented in this encounter Visit Diagnoses Not on filedocumented in this encounter"
--- OUTSIDE RECORDS SUMMARY | ~2019-07-31 | XMS | Encounter Summary ---
Demographics + + + | Address | [address] | | | [place] [address] | + + + | Home Phone | | + + + | Preferred Language | Unknown | + + + | Marital Status | | + + + | Muslim Affiliation | 1061 | + + + | Race | Unknown | + + + | Ethnic Group | Unknown | + + + Author + + + | Author | [facility] | | | and [place] | + + + | Organization | [facility] | | | and [...] [place] | | | | | [address] | | + + + + + | Christy Flaherty | ECON | [address] | | | | | [place] | | | | | [address] | | + + + + + Care Team Providers + +------+ + | Care Prevention Coordinator Name | Role | Phone | + +------+ + | Juan Demarco MD | PCP | | + +------+ + Encounter Details +--------+ + + + + | Date | Type | Department | Care Team | Description | +--------+ + + + + | 12/10/ | Orders Only | [facility] | Conversion | | | 2014 | | INFECTIOUS DISEASE | Transaction, | | | | | [address] | Provider Unknown | | | | | [place], [place] | | | | | | [address] | (Fax) | | | | | [phone] | | | +--------+ + + + [...] | + +--------+ + + + | ANTISTREPTOLYSIN O, | Routin | 12/10/2014 | | Results for this | | QUANT | e | 12:00 AM | | procedure are in the | | | | PDT | | results section. | + +--------+ + + + | C-REACTIVE PROTEIN | Routin | 12/10/2014 | | Results for this | | | e | 12:00 AM | | procedure are in the | | | | PDT | | results section. | + +--------+ + + + documented in this encounter Results Antistreptolysin O, Quant (12/10/2014 12:00 AM PDT) + +---------+ + + + | Component | Value | Ref Range | Performed | Pathologist | | | | | At | Signature | + +---------+ + + + | Anti | 476 (A) | 0 - 250 IU/mL | EXTERNAL | | | Streptolysi | | | LAB | | | n O | | | | | + +---------+ + + + + + | Specimen | + + | Blood specimen | | (specimen) | + + + +---------+ + + | Performing | Address | City/State/Zipcode | Phone Number | | Organization | | | | + +---------+ + + | EXTERNAL LAB | | | | + +---------+ + + C-Reactive Protein (12/10/2014 12:00 AM PDT) + + + + + + | Component | Value | Ref Range | Performed | Pathologist | | | | | At | Signature | + + + + + + | CRP | Comment: <5 | 0 - 5 mg/L | EXTERNAL | | | | | [...]
--- OUTSIDE RECORDS SUMMARY | ~2019-07-31 | XMS | Encounter Summary ---
Demographics + + + | Address | [address] | | | [place] [address] | + + + | Home Phone | | + + + | Preferred Language | Unknown | + + + | Marital Status | | + + + | Denominational Affiliation | ASG | + + + | Race | White | + + + | Ethnic Group | Not or | + + + Author + + + | Author | [facility] | + + + | Organization | [facility] | + + + | Address | Unknown | + + + | Phone | Unavailable | + + + Support + + + + + | Name | Relationship | Address | Phone | + + + + + | Christy Flaherty | ECON | [address] | | | | | [place] | | | | | [address] | | + + + + + Care Team Providers + +------+ + | Care Supervisor Metalizing Name | Role | Phone | + +------+ + | Filippo Chen DO | PCP | | + +------+ + Encounter Details +--------+ + + + + | Date | Type | Department | Care Team | Description | +--------+ + + + + | 11/04/ | MyChart | Neurology at | Noe [place], | RE: Additional | | 2016 | Encounter | [facility] & | | Medications | | | | Healing [address] | | | | | | Deborah Mailcode: CH8C | | | | | | [facility] | | | | | | and Healing, | | | | | | Building | | | | | | Floor [place], [place] | | | | | | [address] | | | | | | [phone] | | | +--------+ + + + [...]
--- OUTSIDE RECORDS SUMMARY | ~2019-07-31 | XMS | Encounter Summary ---
Demographics + + + | Address | [address] | | | [place] [address] | + + + | Home Phone | | + + + | Preferred Language | Unknown | + + + | Marital Status | | + + + | Baptism Affiliation | 1061 | + + + | Race | Unknown | + + + | Ethnic Group | Unknown | + + + Author + + + | Author | [facility] | | | and [place] | + + + | Organization | [facility] | | | and [...] [place] | | | | | [address] | | + + + + + | Christy Flaherty | ECON | [address] | | | | [place] | | | | | [address] | | + + + + + Care Team Providers + +------+ + | Care Sheep Killer Name | Role | Phone | + [...] + + | 10/28/ | Office | [facility] | [place] | Contusion of right | | 2012 | Visit | OCCUPATIONAL [facility]ALTH | [address] | hand (Primary Dx); | | | | [address] | [facility] | Soft tissue mass; | | | | [address] [facility] | [place] [address] | [address] of occurrence, | | | | [place], [place] | [phone] | industrial places | | | | [address] | | and premises | | | | [phone] | | | +--------+---------+ + + + [...] MD - 10/28/2012 8:46 AM PDTSee dictation [id number] christopher d by [place] MD at 10/28/2012 8:47 AM [place] MD - 10/29/19 13 12:00 AM PDT OCCUPATIONAL MEDICINE [address] [place] [address] [place] [address] FAX: [phone] OFFICE VISIT BACKGROUND INFORMATION Claim No.: [id number] Date of injury: 08/18/2012 Employer: [employer] Guarantor: [...] Hollie [place] MD / [place] JOB #: [id number] signed by [place] MD at 10/28/2012 [...]
--- OUTSIDE RECORDS SUMMARY | ~2019-07-31 | XMS | Encounter Summary ---
Demographics + + + | Address | [address] | | | [place] [address] | + + + | Home Phone | | + + + | Preferred Language | Unknown | + + + | Marital Status | | + + + | Episcopal Affiliation | 1061 | + + + | Race | Unknown | + + + | Ethnic Group | Unknown | + + + Author + + + | Author | [facility] | | | and [place] | + + + | Organization | [facility] | | | and [...] [place] | | | | | [address] | | + + + + + | Christy Flaherty | ECON | [address] | | | | | [place] | | | | | [address] | | + + + + + Care Team Providers + +------+ + | Care Analytical Data Scientist Name | Role | Phone | + +------+ + | Juan Demarco MD | PCP | | + +------+ + Encounter Details +--------+ + + + + | Date | Type | Department | Care Team | Description | +--------+ + + + + | 07/25/ | Orders Only | [facility] | Conversion | | | 2015 | | INFECTIOUS DISEASE | Transaction, | | | | | [address] | Provider Unknown | | | | | [place], [place] | | | | | | [address] | (Fax) | | | | | [phone] | | | +--------+ + + + [...] | EXTERNAL LAB: CBC | Routin | 07/26/2015 | | Results for this | | | e | 12:00 AM | | procedure are in the | | | | PDT | | results section. | + +--------+ + + + | ANTISTREPTOLYSIN O, | Routin | 07/26/2015 | | Results for this | | QUANT | e | 12:00 AM | | procedure are in the | | | | PDT | | results section. | + +--------+ + + + documented in this encounter Results Antistreptolysin O, Quant (07/26/2015 12:00 AM PDT) + +---------+ + + + | Component | Value | Ref Range | Performed | Pathologist | | | | | At | Signature | + +---------+ + + + | Anti | 317 (A) | 0 - 250 IU/ml | EXTERNAL | | | Streptolysi | [...] + +---------+ + + External Lab: CBC (07/26/2015 12:00 AM PDT) + +--------+ + + + | Component | Value | Ref Range | Performed | Pathologist | | | | | At | Signature | + +--------+ + + + | WBC | 5.4 | 4.5 - 11.0 K/uL | EXTERNAL | | | | | | LAB | | + +--------+ + + + | Red Blood | 5.14 | 4.3 - 5.7 M/uL | EXTERNAL | | | Cells | | | LAB | | | Counted | | | | | + +--------+ + + + | Hemoglobin | 15.5 | 13.5 - 18.0 | EXTERNAL | | | | | g/dL | LAB | | + +--------+ + + + | Hematocrit, | 45.3 | 41 - 50 % | EXTERNAL | | | POC | | | LAB | | + +--------+ + + + | MCV | 88.0 | 81 - 99 fL | EXTERNAL | | | | | | LAB | | + +--------+ + + + | MCH | 30 | 27 - 33 pg | EXTERNAL | | | | | | LAB | | + +--------+ + + + | MCHC | 34 | 30 - 36 g/dL | EXTERNAL | | | | | | LAB | | + +--------+ + + + | Platelet | 183 | 140 - 440 K/uL | EXTERNAL | | | Count | | | LAB | | | Plasma | | | | | + +--------+ + + + | RDW-CV | 12.7 | 10.5 - 15.0 % | EXTERNAL | | | | | | LAB | | + +--------+ + + + | MPV | | | EXTERNAL | | | | | | LAB | | + +--------+ + + + | Differentia | Manual | | EXTERNAL | | | l Type | | | LAB | | + +--------+ + + + | % Segmented | 34 (A) | 39 - 80 % | EXTERNAL | | | | | | LAB | | | Neutrophils | | | | | + +--------+ + + + | % | 54 (A) | 24 - 44 % | EXTERNAL | | | Lymphocytes | | | LAB | | + +--------+ + + + | % Monocytes | 9 | 0 - 12 % | EXTERNAL | | | | | | LAB | | + +--------+ + + + | % | 3 | 0 - 6 % | EXTERNAL | | | Eosinophils | | | LAB | | + +--------+ + + + | % Basophils | 0 | 0 - 2 % | EXTERNAL | | | | | | LAB | | + +--------+ + + + | Absolute | | | EXTERNAL | | | Segmented | | | LAB | | | Neutrophils | | | | | + +--------+ + + + | Absolute | | | EXTERNAL | | | Lymphocytes | | | LAB | | + +--------+ + + + | Absolute | | | EXTERNAL | | | Monocytes | | | LAB | | + +--------+ + + + | Absolute | | | EXTERNAL | | | Eosinophils | | | LAB | | + +--------+ + + + | Absolute | | | EXTERNAL | | | Basophils | [...]
--- OUTSIDE RECORDS SUMMARY | ~2019-07-31 | XMS | Encounter Summary ---
Demographics + + + | Address | [address] | | | [place] [address] | + + + | Home Phone | | + + + | Preferred Language | Unknown | + + + | Marital Status | | + + + | Synagogue Affiliation | ASG | + + + | Race | White | + + + | Ethnic Group | Not or | + + + Author + + + | Author | [facility] | + + + | Organization | [facility] | + + + | Address | Unknown | + + + | Phone | Unavailable | + + + Support + + + + + | Name | Relationship | Address | Phone | + + + + + | Christy Flaherty | ECON | [address] | | | | | [place] | | | | | [address] | | + + + + + Care Team Providers + +------+ + | Care Tobacco Cutter Name | Role | Phone | + +------+ + | Filippo Chen DO | PCP | | + +------+ + Reason for Visit AUTH/CERT +--------+--------+ + + + + | Status | Reason | Specialty | Diagnoses / | Referred By | Referred To | | | | | Procedures | Contact | Contact | +--------+--------+ + + + + | | | | | | | +--------+--------+ + + + + Encounter Details +--------+ + + + + | Date | Type | Department | Care Team | Description | +--------+ + + + + | 04/09/ | Hospital | [address] | Taiwo Tilley, | | | 2018 - | Encounter | [facility] | [address] [place] [address] | | | | | [facility] | [facility] | | | 04/10/ | | [place], [place] | [place], [place] | | | 2017 | | [address] | [address] | | | | | [phone] | [phone] | | | | | | | | | | | | Laurence Barboza MD | | | | | | [address] | | | | | | [facility] | | | | | | [place], [place] | | | | | | [address] | | | | | | [phone] | | | | | | | | | | | | Amado Roger, | | | | | | [address] | | | | | | [facility] | | | | | | [place], [place] | | | | | | [address] | | | | | | [phone] | | | | | | | | +--------+ + [...] Pressure | 103/53 | 04/10/2017 7:42 AM | | | | | PST | | + + + + + | Pulse | 59 | 04/10/2017 7:42 AM | | | | | PST | | + + + + + | Temperature | 36.5 C (97.7 F) | 04/10/2017 7:42 AM | | | | | PST | | + + + + + | Respiratory Rate | 16 | 04/10/2017 7:42 AM | | | | | PST | | + + + + + | Oxygen Saturation | 95% | 04/10/2017 7:42 AM | | | | | PST | | + + + + + | Inhaled Oxygen | - | - | | | Concentration | | | | + + + + + | Weight | 106.6 kg (235 lb) | 04/09/2017 11:25 AM | | | | | PST | | + + + + + | Height | 177.8 cm (5' 10") | 04/09/2017 11:25 AM | | | | | PST | | + + + + + | Body Mass Index | 33.72 | 04/09/2017 11:25 AM | | | | | PST | | + + + + + documented in this encounter Discharge Summaries Amado Roger MD - 04/10/2017 7:24 AM PST [facility] Discharge Summary Discharging Provider: Amado Roger MD Discharging Attending Physician: Amado Roger MD PCP: Filippo Chen DO Admission Date: 04/09/2017 Discharge Date: 04/10/17 Hospital Stay: 1 day(s) Reason for Admission: 51 yo man with hx of obesity, seizures, VIKTORIA on BiPAP who has had 6 months of abdominal pain , weight loss (30 lbs), dysphagia/sore throat who was referred to [facility] GI for ERCP and under went EUS with pancreatic biopsies Principal Final Diagnosis: Post pancreatic biopsy pain/nausea Additional Diagnoses: Chronic pancreatitis vs autoimmune pancreatitis Abdominal pain, weight loss Seizures VIKTORIA Psoriatic Arthritis Migraines Procedures: ERCP with EUS on 04/09 Hospital Course by Problem (with follow-up plan/instructions): #Post pancreatic biopsy pain/nausea #Chronic pancreatitis vs autoimmune pancreatitis #Abdominal pain, weight loss Underwent ERCP-EUS with pancreatic bx. Post-procedure was having a lot of abdominal pain a nd so admitted. Pt tolerated CLD on evening of procedure and on day of discharge was tolera ting regular diet. Pt was instructed to resume home medications for pain and nausea. GI wi ll call to set-up outpatient appt to f/u on biopsy results. #Seizure Disorder Stable. Continue home depakote. #VIKTORIA on BiPAP Stable. Continue home bipap. Psoriatic arthritis Stable. Continue home mometasone topical ointment. Resume home methotrexate until next wee k. Pertinent Findings: No labs this encounter Pending bx results Consultants (service/attending name): Gastroenterology/Dr. Tilley Discharge Medications: Medication List CONTINUE taking these medications acetaminophen 325 mg Tab Commonly known as: TYLENOL aspirin [address] 500 mg Tbec Commonly known as: DEPAKOTE folic acid 1 mg Tab Commonly known as: FOLVITE lamoTRIgine 25 mg Tab Commonly known as: LAMICTAL 25 mg every other day for two weeks Indications: COMPLEX-PARTIAL EPILEPSY methotrexate 2.5 mg Tab mometasone 0.1 % Crea Commonly known as: ELOCON polyethylene glycol 17 gram/dose Powd Commonly known as: MIRALAX Mix 17 g in liquid and drink two times daily. Indications: constipation VITAMIN D ORAL Rationale for Medication Changes: No changes were made Allergies: Allergies Allergen Reactions Piroxicam Rash Pt mentions he developed a rash while on this medication. Resolved immediately upon disco ntinue. Meloxicam Diarrhea Bowel incontinence Wcxnqsu-Sos-Rrp Reductase Inhibitors Seizures Increased frequency of seizures, though pts mentions, pt had an infection during the time the pt was started on a statin and this may have been the cause also. Provider never t ried a statin again. Code Status: Full POLST completed: no Additional Instructions: Condition on Discharge Fair ERCP/EUS Discharge Diet Clear liquids on day of procedure. Low fat diet (no dairy products) on day after procedure. The next day, return to your previous diet. Diet Regular Regular diet- There are no restrictions to your diet. You may eat or drink whatever you pr efer, though healthy food choices are recommended. Activity No activity restrictions Other Discharge Orders and Instructions Seek medical attention if having worsening abdominal pain, uncontrolled nausea/vomiting, ch est pain, shortness of breath, worst headache of your life, any other concerns Follow Up: Discharge Physical Exam: Last 24 hour min/max Temp: 36.6 C (97.9 F) Temp Min: 36.2 C (97.2 F) Max: 36.8 C (98.2 F) Pulse: 61 Pulse Min: 54 Max: 68 Resp: 16 Resp Min: 11 Max: 20 BP: 99/48 BP Min: 99/48 Max: 129/62 SpO2: 92 % SpO2 Min: 92 % Max: 100 % Body mass index is 33.72 kg/m. General Appearance: NAD, speaking in full sentences HEENT: EOMI, anicteric sclera, clear oropharynx Neck: JVD noted at clavicle at 90 degrees Cardiac: RRR, no r/g/m Pulmonary: CTAB, no w/r/c Abdomen: +BS, soft, mild diffuse TTP (worst in umbilical region) Extremities: negative edema Neuro: A, Ox3, moves all extremities, no focal neuro deficits Amado Roger MD, MSc Growth Media Mixer Mushroomcredit charge authorizer Clinical Hospitalist and Medicine Teaching Services [facility] Pager: [phone] documented in this encounter Discharge Instructions Instructions Catherine Salamanca RN - 04/09/2017Home Care Instructions after EGD (Upper Endos copy) with EUS (Endoscopic Ultrasound) You may resume your normal diet and medications unless told otherwise. Medications The medications you received for your procedure can cause you to be forgetful and drowsy an d will take the remainder of the day to wear off. DO NOT drink alcohol, drive, operate heavy machinery, sign legal documents, or make major d ecisions until tomorrow. Common After Effects Mild abdominal pain, bloating, and gas. Sore throat. You may treat it with throat lozenges and/or gargle with warm salt water. You may bruise at your IV site. If you have pain, redness, or swelling at your IV site a pply a warm compress. Complications Call your GI doctor if you have: Abnormal pain or any new unexplained symptoms. Shortness of breath, chest or neck pain. Vomiting blood or rectal bleeding. Fever above 101.5 Redness, pain, or swelling at your IV site that is not relieved with warm compress. For any questions related to your procedure, call Wednesday- Wednesday 8:00- 4:30 Call the endoscopy department toll free ext. [phone] or . After business hours or on weekends and holiday Hospital Supervisor Wool Shearing toll free [phone] ext. [phone] and have the GI doctor care coordination manager paged. The provider who performed your procedure: Taiwo Tilley MD Results of your EGD/EUS: Fine needle aspiration of tissue at the pancreatic head. Patholo gy evaluating. Follow up Appointments with: Referring provider as needed. Thank you for choosing [facility]! Your primary care provider or referring provider will receive copies of the procedure repor t and all the pathology reports with recommendations for treatment if needed. If noted above that biopsies were taken or polyps removed you will receive the results in a pproximately 1 week. If you have not heard from us after 2 weeks please call for your result s. documented in this encounter Medications at Time of Discharge [...] Indications: | | | | | | complex-partial | COMPLEX-PARTIAL | | | | | | epilepsy | EPILEPSY | | | | | [...] | + +--------+ + + + | CARDIOLOGY | | 04/09/2017 | | Results for this | | | | 12:00 AM | | procedure are in the | | | | PST | | results section. | + +--------+ + + + | NON COOK HOUSE SUPERVISOR CYTOLOGY | Routin | 04/09/2017 | | Results for this | | | e | | | procedure are in the | | | | | | results section. | + +--------+ + + + | SURGICAL PATHOLOGY | Routin | 04/09/2017 | | Results for this | | | e | | | procedure are in the | | | | | | results section. | + +--------+ + + + documented in this encounter Results EUS UPPER (04/09/2017 1:07 PM PST) + + | Specimen | + + | | + + + + + | Narrative | Performed At | + + + | MRN: | [facility] | | [id number] Date: 04/09/2017Patient Name: Daysi Cook #: | ENDOSCOPY | | [id number] of : 1965CSN: [id number] Type: | | | AmbulatoryRoom: GI 3Procedure: Upper EUSIndications: | | | Abnormal ultrasound of the abdomenProviders: | | | TAIWO TILLEY MD (Doctor), LUIS A MAYES RN (Nurse), | | | JYOTI RODRIGUEZ Aircraft Launch And Recovery Technician (Aircraft Launch And Recovery Technician)Referring MD: | | | TAIWO TILLEY MDRequesting Provider: Medicines: | | | Monitored Anesthesia CareComplications: No immediate | | | complications.Procedure: Pre-Anesthesia Assessment: | | | - Pre-procedure physical examination | | | revealed no contraindications to | | | sedation. - Airway Examination: | | | Mallampati Class III (part of the uvula | | | and soft palate visualized). - ASA | | | Grade Assessment: II - A patient with mild | | | systemic disease. - After reviewing | | | the risks and benefits, the patient was | | | deemed in satisfactory condition to undergo the | | | procedure. - The anesthesia | | | plan was to use monitored anesthesia | | | care (MAC). - Immediately prior to | | | administration of medications, the | | | patient was re-assessed for adequacy to receive | | | sedatives. Prior to the | | | procedure, a History and Physical with | | | airway assessment was performed (see patient record), | | | and patient medications and allergies were reviewed. | | | The risks and benefits of the procedure | | | and the sedation options and risks | | | were discussed. All questions were | | | answered and informed consent was obtained. After | | | reviewing the risks and benefits, the patient was deemed | | | in satisfactory condition to undergo the | | | procedure. Immediately prior to | | | administration of medications, the | | | patient was re-assessed for adequacy to receive | | | sedatives. The heart rate, respiratory rate, oxygen | | | saturations, blood pressure, adequacy of | | | pulmonary ventilation, and response to | | | care were monitored throughout the | | | procedure. The physical status of the | | | patient was re-assessed after the procedure. | | | The Olympus [id number] [id number] Linear Echoendoscope #[id number] | | | was introduced through the mouth, and advanced | | | to the second part of duodenum. The | | | Olympus [id number] Endoscope #[id number] | | | was introduced through the mouth, and advanced | | | to the second part of duodenum. The upper EUS was | | | accomplished without difficulty. The patient | | | tolerated the procedure well.Estimated | | | Blood Loss: Estimated blood loss was minimal.Findings: | | | Endoscopic Finding : The examined esophagus was endoscopically | | | normal. Patchy mild inflammation characterized by erythema was | | | found in the gastric body and in the gastric antrum. Biopsies | | | were taken with a cold forceps for histology. The | | | examined duodenum was endoscopically normal. Endosonographic | | | Finding : There was no sign of significant endosonographic | | | abnormality in the common bile duct. The maximum diameter of | | | the duct was 3 mm in the head of the pancreas. No stones, no | | | biliary sludge and ducts of normal caliber were identified. | | | Pancreatic parenchymal abnormalities were noted in the pancreatic | | | head, in the genu of the pancreas, in the pancreatic body and | | | in the pancreatic tail. These consisted of atrophy, hyperechoic | | | strands and lobularity. An area of more pronounced | | | parenchymal changes vs round mass was identified in the | | | pancreatic head. The area/mass was hypoechoic. The area/mass | | | measured 23 mm by 24 mm in maximal cross-sectional diameter. | | | The outer margins were irregular. Fine needle aspiration for cytology | | | was performed. Color Doppler imaging was utilized prior to | | | needle puncture to confirm a lack of significant vascular | | | structures within the needle path. Seven passes were made with | | | the 25 gauge needle using a transduodenal approach. A stylet | | | was used. A online user experience strategist was present and performed a preliminary | | | cytologic examination. Preliminary cytology is suggestive of | | | benign inflammatory changes (final results are pending). Two | | | enlarged lymph nodes were visualized in the peripancreatic region. | | | The largest measured 9 mm by 6 mm in maximal cross-sectional | | | diameter. The nodes were triangular, hypoechoic and had well | | | defined margins. There was no sign of significant | | | endosonographic abnormality in the ampulla.Impression: | | | - Gastritis. Biopsied. - | | | Pancreatic parenchymal abnormalities consisting of | | | atrophy, hyperechoic strands and lobularity were noted | | | in the entire pancreas. These changes were | | | concenring for chronic pancreatitis. | | | - An area of more pronounced parenchymal | | | changes vs mass was identified in the | | | pancreatic head. Fine needle aspiration | | | performed. - Two enlarged lymph nodes | | | were visualized in the peripancreatic | | | region. Tissue has not been obtained. | | | However, the endosonographic appearance is consistent | | | with benign inflammatory changes.Recommendation: | | | - Discharge patient to home (ambulatory). | | | - Await cytology results and await path results. | | | - The findings and recommendations were discussed with | | | the patient and their spouse.Attending | | | Participation: I personally performed the entire procedure.Taiwo | | | MELLISSA Tilley MD04/09/2017 3:29:43 PMThis report has | | | been signed electronically.Number of Addenda: 0Note Initiated On: | | | 04/09/2017 1:07 [facility] Letter to: FILIPPO CHEN DO | | |Attending Participation: | | | I personally performed the entire procedure. | | |Taiwo Tilley MD | | |TAIWO TILLEY MD | | |04/09/2017 3:29:43 PM | | |This report has been signed electronically. | | |Number of Addenda: 0 | | |Note Initiated On: 04/09/2017 1:07 PM | | |CC Letter to: | | | FILIPPO CHEN DO | | + + + + +---------+ + + | Performing | Address | City/State/Zipcode | Phone Number | | Organization | | | | + +---------+ + + | [facility] | | | | + +---------+ + + NON COOK HOUSE SUPERVISOR CYTOLOGY (04/09/2017) + + + + + + | Component | Value | Ref Range | Performed | Pathologist | | | | | At | Signature | + + + + + + | NON-COOK HOUSE SUPERVISOR | SOURCE OF SPECIMEN:A | | [facility] | | | CYTOLOGY | Head of Pancreas FNA, | | DEPARTMENT | | | | Done by clinician with | | OF | | | | adequacyassessmentGROSS | | PATHOLOGY | | | | DESCRIPTION:CLINICAL | | | | | | HISTORY: Clinical | | | | | | History:51 yo male, h/o | | | | | | epigastric abdominal | | | | | | pain; suspected chronic | | | | | | pancreatitis[DS]. | | | | | | EUSg FNA yielded | | | | | | SurePath slide, 7 | | | | | | air-dried | | | | | | diffquick-stained slides | | | | | | and 7alcohol-fixed | | | | | | Pap-stained slides and | | | | | | cell block preparation. | | | | | | Final Cytologic | | | | | | Diagnosis:A. Head of | | | | | | pancreas, EUSg FNA (x7): | | | | | | - Negative | | | | | | for malignancy- | | | | | | Please see comment | | | | | | Immediate | | | | | | Impression:nfm(ed,ds) | | | | | | Case reviewed | | | | | | by:Anthony Soares, | | | | | | MD/Staff Pathologist | | | | | | Comment:The head of | | | | | | pancreas sampling is | | | | | | reviewed over FNA x7 and | | | | | | the | | | | | | cytologicpreparation is | | | | | | sparsely cellular | | | | | | revealing findings | | | | | | consistent with | | | | | | chronicpancreatitis. | | | | | | There is no malignancy. | | | | | | My electronic | | | | | | signature indicates that | | | | | | I have personally | | | | | | reviewed alldiagnostic | | | | | | slides, the gross and/or | | | | | | microscopic portion of | | | | | | thisreport and | | | | | | formulated the final | | | | | | diagnosis. | | | | | | Electronically signed | | | | | | by: Anthony Soares | | | | | | hZaoPathologistDate | | | | | | Completed: 04/13/2017 | | | | | | 5:27PM | | | | + + + + + + + + | Specimen | + + | | + + + + + | Narrative | Performed At | + + + | | | + + + + + + + + | Performing | Address | City/State/Zipcode | Phone Number | | Organization | | | | + + + + + | [facility] [address] | [place] [address] | | | PATHOLOGY | [address] | | | + + + + + SURGICAL PATHOLOGY (04/09/2017) + + + + + + | Component | Value | Ref Range | Performed | Pathologist | | | | | At | Signature | + + + + + + | SURGICAL | SOURCE OF SPECIMEN:A | | [facility] | | | PATHOLOGY | Random gastric | | DEPARTMENT | | | | Final Pathologic | | OF | | | | Diagnosis:Stomach, | | PATHOLOGY | | | | biopsies:- Mild | | | | | | chronic gastritis- | | | | | | Negative for H. | | | | | | pylori-like organisms by | | | | | | H&E Case reviewed | | | | | | by:Scott Cuevas, | | | | | | MD/Pathology | | | | | | Sadie Rios, | | | | | | , PhD/Pathologist | | | | | | Clinical History:51 | | | | | | year-old male with EUS | | | | | | findings consistent with | | | | | | gastritis and | | | | | | chronicpancreatitis. | | | | | | Gross | | | | | | Description:Received is | | | | | | one specimen in formalin | | | | | | labeled the patient's | | | | | | name and medicalrecord | | | | | | #[id number]. A. | | | | | | Random gastric biopsy | | | | | | | | | | | | received are 3 fragments | | | | | | of orozco-pink soft | | | | | | tissue,0.7 x 0.2 x 0.2 | | | | | | cm in aggregate, | | | | | | entirely submitted in | | | | | | cassettes A1 CW | | | | | | My electronic | | | | | | signature indicates that | | | | | | I have personally | | | | | | reviewed alldiagnostic | | | | | | slides, the gross and/or | | | | | | microscopic portion of | | | | | | thisreport and | | | | | | formulated the final | | | | | | diagnosis. | | | | | | Electronically signed | | | | | | by: Paulo Rios M.D., | | | | | | Ph.DPathologistDate | | | | | | Completed: 04/14/2017 | | | | | | 7:41PM | | | | + + + + + + + + | Specimen | + + | Tissue - Biopsy | | (procedure) | + + + + + | Narrative | Performed At | + + + | | | + + + + + + + + | Performing | Address | City/State/Zipcode | Phone Number | | Organization | | | | + + + + + | [facility] | [address] | [place] [address] | | | PATHOLOGY | [address] | | | + + + + + CARDIOLOGY (04/09/2017 12:00 AM PST) + + + | Narrative | Performed At | + + + | | | + + + documented in this encounter Visit Diagnoses + + | Diagnosis | + + | Chronic pancreatitis, unspecified pancreatitis type (HCC) - Primary | + + | Idiopathic chronic pancreatitis (HCC) | + + documented in this encounter Administered Medications + +--------+ + +------+------+ | Medication Order | MAR | Action | Dose | Rate | Site | | | Action | Date | | | | + +--------+ + +------+------+ | divalproex DR (DEPAKOTE) tablet | Given | 04/10/19 | 1,000 mg | | | | 1,000 mg 1,000 mg, oral, TWICE | | 18 9:03 | | | | | DAILY, First dose on Wed04/09/17 | | AM PST | | | | | at 2100, Until Discontinued | | | | | | + +--------+ + +------+------+ +-------+ + +---+---+ | Given | 04/09/19 | 1,000 mg | | | | | 18 9:31 | | | | | | PM PST | | | | +-------+ + +---+---+ +---+---+ | | | +---+---+ + +-------+ +------+---+---+ | folic acid (FOLVITE) tablet 1 | Given | 04/10/19 | 1 mg | | | | mg 1 mg, oral, DAILY, First dose | | 18 9:03 | | | | | on Wed04/09/17 at 2000, Until | | AM PST | | | | | Discontinued | | | | | | + +-------+ +------+---+---+ +-------+ +------+---+---+ | Given | 04/09/19 | 1 mg | | | | | 18 9:31 | | | | | | PM PST | | | | +-------+ +------+---+---+ +---+---+ | | | +---+---+ + +-------+ + +---+---+ | HYDROcodone-acetaminophen | Given | 04/10/19 | 1 tablet | | | | (NORCO) 5-325 mg tablet 1-2 | | 18 12:04 | | | | | tablet 1-2 tablet, oral, EVERY 4 | | PM PST | | | | | HOURS NEEDED, Starting Fri | | | | | | | 04/09/17 at 1702, Until Sat | | | | | | | 04/10/17 at 1913, moderate pain | | | | | | + +-------+ + +---+---+ +-------+ + +---+---+ | Given | 04/10/19 | 1 tablet | | | | | 18 7:42 | | | | | | AM PST | | | | +-------+ + +---+---+ +---+---+ | | | +---+---+ + +-------+ +--------+---+---+ | HYDROmorphone (DILAUDID) | Given | 04/09/19 | 0.5 mg | | | | injection 0.2-0.5 mg 0.2-0.5 mg, | | 18 10:34 | | | | | intravenous, EVERY 2 HOURS | | PM PST | | | | | NEEDED, Starting 04/09/17 at | | | | | | | 1702, Until 04/10/17 at 1913, | | | | | | | severe pain | | | | | | + +-------+ +--------+---+---+ +-------+ +--------+---+---+ | Given | 04/09/19 | 0.5 mg | | | | | 18 6:29 | | | | | | PM PST | | | | +-------+ +--------+---+---+ +---+---+ | | | +---+---+ + +-------+ +--------+---+---+ | HYDROmorphone (DILAUDID) | Given | 04/09/19 | 0.5 mg | | | | injection 0.5 mg 0.5 mg, | | 18 3:01 | | | | | intravenous, ONCE, 1 dose, Fri | | PM PST | | | | | 04/09/17 at 1530 | | | | | | + +-------+ +--------+---+---+ +---+---+ | | | +---+---+ + +-------+ + +---+---+ | mometasone (ELOCON) 0.1 % cream | Given | 04/10/19 | 1 | | | | 1 applicator 1 applicator, | | 18 9:04 | applicat | | | | topical, DAILY, First dose on Fri | | AM PST | or | | | | 04/09/17 at 1915, Until | | | | | | | Discontinued | | | | | | + +-------+ + +---+---+ +---+---+ | | | +---+---+ + +-------+ +------+---+---+ | ondansetron (ZOFRAN) injection | Given | 04/09/19 | 4 mg | | | | 4 mg 4 mg, intravenous, ONCE, 1 | | 18 3:02 | | | | | dose, 04/09/17 at 1530 | | PM PST | | | | + +-------+ +------+---+---+ +---+---+ | | | +---+---+ + +-------+ +---------+---+---+ | promethazine (PHENERGAN) | Given | 04/09/19 | 6.25 mg | | | | injection 6.25 mg 6.25 mg, | | 18 3:44 | | | | | intravenous, ONCE, 1 dose, Fri | | PM PST | | | | | 04/09/17 at 1345 | | | | | | + +-------+ +---------+---+---+ +---+---+ | | | +---+---+ + + + +---+---+---+ | sodium chloride 0.9% IV | given by | 04/09/19 | | | | | infusion 50 mL/hr, intravenous, | | 18 2:21 | | | | | CONTINUOUS, Starting 04/09/17 | anesthes | PM PST | | | | | at 1100, Until 04/09/17 at | iology | | | | | | 1704 | | | | | | + + + +---+---+---+ + + +---+---+---+ | New Bag | 04/09/19 | | | | | | 18 1:22 | | | | | | PM PST | | | | + + +---+---+---+ | given by anesthesiology | 04/09/19 | | | | | | 18 1:09 | | | | | | PM PST | | | | + + +---+---+---+ +---+---+ | | | +---+---+ documented in this encounter
--- OUTSIDE RECORDS SUMMARY | ~2019-07-31 | XMS | Encounter Summary ---
Demographics + + + | Address | [address] | | | [place] [address] | + + + | Home Phone | | + + + | Preferred Language | Unknown | + + + | Marital Status | | + + + | Rastafarian Affiliation | ASG | + + + | Race | White | + + + | Ethnic Group | Not or | + + + Author + + + | Author | [facility] | + + + | Organization | [facility] | + + + | Address | Unknown | + + + | Phone | Unavailable | + + + Support + + + + + | Name | Relationship | Address | Phone | + + + + + | Christy Flaherty | ECON | [address] | | | | | [place] | | | | | [address] | | + + + + + Care Team Providers + +------+ + | Care Shoe Stock Associate Name | Role | Phone | + +------+ + | Filpipo Chen DO | PCP | | + +------+ + Reason for Visit + + + | Reason | Comments | + + + | Follow-up visit | Outside records reviewd by Dr. Tilley | + + + Encounter Details +--------+ + + + + | Date | Type | Department | Care Team | Description | +--------+ + + + + | 10/25/ | Telephone | Digestive Health | Taiwo Tilley, | Follow-up visit | | 2019 | | Center at [facility] [address] | [address] | (Outside records | | | | [address] | [address] | reviewd by | | | | Mailcode: [place] | [place], [place] | Jarek) | | | | for Health and | [address] | | | | | [place] [address] | [phone] | | | | | [place], [place] | | | | | | [address] | | | | | | [phone] | | | +--------+ + + + [...]
--- OUTSIDE RECORDS SUMMARY | ~2019-07-31 | XMS | Encounter Summary ---
Demographics + + + | Address | [address] | | | [place] [address] | + + + | Home Phone | | + + + | Preferred Language | Unknown | + + + | Marital Status | | + + + | Spiritism Affiliation | ASG | + + + | Race | White | + + + | Ethnic Group | Not or | + + + Author + + + | Author | [facility] | + + + | Organization | [facility] | + + + | Address | Unknown | + + + | Phone | Unavailable | + + + Support + + + + + | Name | Relationship | Address | Phone | + + + + + | Christy Flaherty | ECON | [address] | | | | | [place] | | | | | [address] | | + + + + + Care Team Providers + +------+ + | Care Ice Platform Supervisor Name | Role | Phone | + +------+ + | Jarvis Willard MD | PCP | | + +------+ + Encounter Details +--------+ + + + + | Date | Type | Department | Care Team | Description | +--------+ + + + + | 02/24/ | Outside | Endoscopic | Filippo Chen, DO | | | 2017 | Referral | Procedural Unit at | [address] | | | | Order | [address] | [place], [place] | | | | | [address] | [address] | | | | | [place], | | | | | | 4th floor [place], | | | | | | [place] [address] | | | | | | [phone] | | | +--------+ + + + [...] | + + +--------+ + + | EUS UPPER | Procedures | Routin | Mass of pancreas | Expected: 02/24/2017 | | | | e | | | + + +--------+ + + documented as of this encounter Visit Diagnoses + + | Diagnosis | + + | Mass of pancreas - Primary Unspecified disease of pancreas | + + documented in this encounter"
--- OUTSIDE RECORDS SUMMARY | ~2019-07-31 | XMS | Encounter Summary ---
Demographics + + + | Address | [address] | | | [place] [address] | + + + | Home Phone | | + + + | Preferred Language | Unknown | + + + | Marital Status | | + + + | Cheondoism Affiliation | [id number] | + + + | Race | Unknown | + + + | Ethnic Group | Unknown | + + + Author + + + | Author | [facility] | | | and [place] | + + + | Organization | [facility] | | | and [place] | + + + | Address | Unknown | + + + | Phone | Unavailable | + + + Support + + + + + | Name | Relationship | Address | Phone | + + + + + | Christy Flaherty | ECON | [address] | | | | | [place] | | | | | [address] | | + + + + + | Christy Flaherty | ECON | [address] | | | | [place] | | | | | [address] | | + + + + + Care Team Providers + +------+ + | Care Remote Encoding Operations Supervisor Name | Role | Phone | + +------+ + PCP | Unavailable | + +------+ + Encounter Details +--------+ + + + + | Date | Type | Department | Care Team | Description | +--------+ + + + + | 11/20/ | Hospital | [facility] | | | | 2003 | Encounter | [facility] | | | | | | CONV DEPT [address] | | | | | | [place], | | | | | | [place] [address] | | | | | | [phone] | | | +--------+ + + + + Social History + +-------+ +--------+------+ | Tobacco Use | Types | Packs/Day | Years | Date | | | | | Used | | + +-------+ +--------+------+ | Never Assessed | | | | | + +-------+ +--------+------+ + + + | Sex Assigned at [...]
--- OUTSIDE RECORDS SUMMARY | ~2019-07-31 | XMS | Encounter Summary ---
Demographics + + + | Address | [address] | | | [place] [address] | + + + | Home Phone | | + + + | Preferred Language | Unknown | + + + | Marital Status | | + + + | Yazidism Affiliation | ASG | + + + | Race | White | + + + | Ethnic Group | Not or | + + + Author + + + | Author | [facility] | + + + | Organization | [facility] | + + + | Address | Unknown | + + + | Phone | Unavailable | + + + Support + + + + + | Name | Relationship | Address | Phone | + + + + + | Christy Flaherty | ECON | [address] | | | | | [place] | | | | | [address] | | + + + + + Care Team Providers + +------+ + | Care Valuation Consultant Name | Role | Phone | + +------+ + | Jarvis Willard MD | PCP | | + +------+ + Reason for Visit + + + | Reason | Comments | + + + | New patient | | | consultation | | + + + Consultation (Routine) + +--------+ + + + + | Status | Reason | Specialty | Diagnoses / | Referred By | Referred To | | | | | Procedures | Contact | Contact | + +--------+ + + + + | Authorized | | Surgery | Diagnoses | Jarek, | Jose, | | | | | Idiopathic | MD Taiwo | MD Duy | | | | | chronic | [address] | [address] | | | | | pancreatitis | [facility] | [facility] | | | | | (HCC) | Rd | Rd [place], | | | | | Procedures | [place], [place] | [place] | | | | | CONSULT TO | [address] | [address] | | | | | SURGERY - | Phone: | Phone: | | | | | GENERAL | [phone] | [phone] | | | | | | Fax: | Fax: | | | | | | [phone] | [phone] | + +--------+ + + + + Encounter Details +--------+---------+ + + + | Date | Type | Department | Care Team | Description | +--------+---------+ + + + | 02/08/ | Office | Digestive Health | Duy Kat, | Idiopathic chronic | | 2019 | Visit | Center at [facility] [address] | [address] | pancreatitis (HCC) | | | | [address] | [facility] [address] | (Primary Dx) | | | | Mailcode: [place] | [place], [place] | | | | | [facility] and | [address] | | | | | [facility] [address] | [phone] | | | | | [place], [place] | | | | | | [address] | | | | | | [phone] | | | +--------+---------+ + + + Social History + +-------+ +--------+------+ | Tobacco Use | Types | Packs/Day | Years | Date | | | | | Used | | + +-------+ +--------+------+ | Never Smoker | | | | | + +-------+ +--------+------+ + +------+---+--------+ | Smokeless Tobacco: | Chew | | Quit: | | Former User | | | 2008 | + +------+---+--------+ + + +---------+ + [...] + + + | Blood Pressure | 132/82 | 02/08/2019 3:39 PM | | | | | PST | | + + + + + | Pulse | 86 | 02/08/2019 3:39 PM | | | | | PST | | + + + + + | Temperature | 36.8 C (98.2 F) | 02/08/2019 3:39 PM | | | | | PST | | + + + + + | Respiratory Rate | - | - | | + + + + + | Oxygen Saturation | 94% | 02/08/2019 3:39 PM | | | | | PST | | + + + + + | Inhaled Oxygen | - | - | | | Concentration | | | | + + + + + | Weight | 106.6 kg (235 lb) | 02/08/2019 3:39 PM | | | | | PST | | + + + + + | Height | 177.8 cm (5' 10") | 02/08/2019 3:39 PM | | | | | PST | | + + + + + | Body Mass Index | 33.72 | 02/08/2019 3:39 PM | | | | | PST | | + + + + + documented in this encounter Progress Notes Bradley Ward MD - 02/08/2019 4:00 PM PSTFormatting of this note might be different from sarah smith. 02/08/2019 Daysi Flaherty is a 53 y.o. male seen for consultation of TPIAT. HPI: 53 yo M with PMHx of epilepsy, psoriatic arthritis, and arhythmia presents for an eval uation of TPIAT after approximately of 7 years of epigastric pain after eating food. From GI's Note: "Every time I eat, no matter what it is, mostly fat", causes GI pain and di arrhea. Patient ate prior to visit and states he is a "miserable wreck" currently. Previousl y, only certain foods caused problems. Anything, including water will cause onset of symptom s. 5-7 hours after eating, the pain resolves, but reoccurs with eating that begins as a pres sure or tightness that progressively worsens and causes nausea. He states the pain is a 7 or 8/10 after meals and sometimes becomes a 9 or a 10/10, and has previously made him unable t o work 3-4 days a month. 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 He describes his stools as watery diarrhea with oil droplets. He states he has lost 35 lbs since last visit. His weight was 246 lbs on 07/29/17. He is currently taking no medications for the pain or loose stools. He has previously taken zenpep, but has stopped taking pancreatic enzymes but doesn't remember why. He is willing t o begin retaking pancreatic enzymes. He states he was hospitalized multiple times for pancreatitis while taking Depakote, the fi rst time in December of 2016. He states he has been to the ER 3-4 times since then and would have gone 3-4 additional times, but states he did not go since "there was nothing they could do there for me" and rides out the pain. He states his pain is a 10/10 during each of these episodes. Chewed tobacco from age [age], never smoker, no ETOH. Took depakote for over 10 years for m ultiple seizures starting at age 37 previously, swapped to gabapentin a year ago and is curr ently not taking any seizure medications. Pain: 5/10 Past Medical History: Diagnosis Date Epilepsy (HCC) GERD (gastroesophageal reflux disease) Headache Rheumatic fever completed therapy in 2016 Sleep apnea SOB (shortness of breath) Allergies Allergen Reactions Piroxicam Rash Pt mentions he developed a rash while on this medication. Resolved immediately upon disco ntinue. Amitiza [Lubiprostone] Cough Meloxicam Diarrhea Bowel incontinence Yntxuzv-Kmw-Pbz Reductase Inhibitors Seizures Increased frequency of seizures, though pts mentions, pt had an infection during the time the pt was started on a statin and this may have been the cause also. Provider never t ried a statin again. Current Outpatient Medications Medication acetaminophen 325 mg oral tablet aspirin 325 mg oral tablet bisacodyl 10 mg rectal suppository divalproex DR 500 mg oral tablet,delayed release (DR/EC) ERGOCALCIFEROL, VITAMIN D2, (VITAMIN D ORAL) folic acid 1 mg oral tablet HYDROcodone-acetaminophen (NORCO) 5-325 mg oral tablet lamoTRIgine 25 mg oral tablet fqmfts-hcammpcl-qobjlig (VIOKACE) 20,880-78,300- 78,300 unit oral tablet methotrexate 2.5 mg oral tablet mometasone 0.1 % topical cream omeprazole 40 mg oral capsule,delayed release(DR/EC) polyethylene glycol (MIRALAX) 17 gram/dose oral powder pregabalin 75 mg oral capsule senna-docusate 4.3-25 oral tablet Vitamin A-Vitamin C-Vit E-Se (ANTIOXIDANT A/C/E/SELENIUM) oral capsule No current facility-administered medications for this visit. No past surgical history on file. - Lap cholecystectomy 07/2018 Review of Systems: General: No constitutional symptoms of fatigue, weakness, weight loss or gain, fevers, nig ht sweats. Eyes: No changes in visual acuity, diplopia or amaurosis, no discharge, matting, redness, tearing or eye pain. Ears/Nose/Throat: No sore throat, dental pain, hoarseness, dysphagia, oral or tongue lesio ns. No history of hearing loss, ear pain, tinnitus or aural discharge. Respiratory: No shortness of breath, cough, chest pain, dyspnea, wheezing or hemoptysis. N o nocturnal snoring, daytime drowsiness or morning headaches. Musculoskeletal: No symptoms of joint pain, swelling, myalgias or back pain. Cardiovascular: No exertional chest pain, dyspnea, palpitations, syncope, orthopnea, edema or paroxysmal nocturnal dyspnea. No lower extremity edema or history of hypertension or hyp erlipidemia. GI: Endorses epigastric pain no longer related with food that radiates to the back. Denies dyspepsia, dysphagia, melena, or hematochezia. Neurologic: The patient denies any symptoms of neurological impairment or TIAs; no amauros is, diplopia, dysphasia, or unilateral disturbance of motor or sensory function. No loss of balance or vertigo. No persistent headaches, numbness or paresthesias. Skin: No recent rashes, sores, or skin changes. No intertrigenous skin infections or acne. Psychological: No anxiety, depression, thoughts of suicide or hallucinations. OBJECTIVE BP 132/82 | Pulse 86 | Temp 36.8 C (98.2 F) | Ht 1.778 m (5' 10") | Wt 106.6 kg (23 5 lb) | SpO2 94% | BMI 33.72 kg/m | BSA 2.29 m Physical Exam: General: healthy, alert and cooperative HEENT: PERRLA, EOMI and TM's normal bilaterally Neck: Neck supple. No adenopathy. Thyroid symmetric & normal size. no jugular venous disten tion. Cardiac: Rate, rhythm, regular, no murmur, gallop or bruits. No peripheral edema. Extremities: Extremities normal. No deformities, edema, or skin discoloration. Peripheral p ulses 2+ equal with peripheral filling less than 2 seconds. Abdomen: no hepatomegaly, nontender to palpation, no masses, aorta not grossly enlarged Respiratory: Percussion normal. Good diaphragmatic excursion. Lungs clear to auscultation b ilaterally Musculoskeletal: Spine ROM normal. Muscular strength intact. Skin: Skin color, texture, turgor normal. No rashes or lesions. Psych: no problems noted Laboratory Data: WHITE CELL COUNT (K/cu mm) Date Value 02/08/2019 5.78 HEMOGLOBIN (g/dL) Date Value 02/08/2019 16.6 HEMATOCRIT (%) Date Value 02/08/2019 49.8 PLATELET COUNT (K/cu mm) Date Value 02/08/2019 200 MCV (fL) Date Value 02/08/2019 89.4 RDW SD (fL) Date Value 02/08/2019 37.6 TOTAL CO2, PLASMA (LAB) (mmol/L) Date Value 02/08/2019 30 BILIRUBIN TOTAL (mg/dL) Date Value 02/08/2019 0.8 CALCIUM, PLASMA (LAB) (mg/dL) Date Value 02/08/2019 8.9 CHLORIDE, PLASMA (LAB) (mmol/L) Date Value 02/08/2019 103 CREATININE PLASMA (LAB) (mg/dL) Date Value 02/08/2019 0.91 GLUCOSE, PLASMA (LAB) (mg/dL) Date Value 02/08/2019 101 (H) ALK PHOS (U/L) Date Value 02/08/2019 109 TOTAL PROTEIN, PLASMA (LAB) (g/dL) Date Value 02/08/2019 7.1 BUN, PLASMA (LAB) (mg/dL) Date Value 02/08/2019 14 ALBUMIN, PLASMA (LAB) (g/dL) Date Value 02/08/2019 3.8 AST(SGOT) (U/L) Date Value 02/08/2019 28 SODIUM, PLASMA (LAB) (mmol/L) Date Value 02/08/2019 141 POTASSIUM, PLASMA (LAB) (mmol/L) Date Value 02/08/2019 3.9 ALT (SGPT) (U/L) Date Value 02/08/2019 47 Plan: Daysi Flaherty is a 53 y.o. male with chronic pancreatitis seen today for evaluat ion of TPIAT. Plan to get updated labs (CMP, CBC, prealbumin, amylase, lipase, nutrition lab s, HgbA1C, folate, serum trypsin) ans schedule for a new, updated CT scan panc protocol. Brice l discuss at multidisciplinary pancreatitis meeting to discuss next steps of care. D/w Dr. Kat who agrees with the plan. Bradley Ward MD General Surgery PGY1 Pager #[phone] Associated attestation - Duy Kat MD - 02/12/2019 5:48 PM PST I saw the patient and reviewed and verified all information documented by the medical stud ent and resident, and made modifications to such information, when appropriate Duy Kat M.D. [facility] [employer] ([facility]) Professor and Vice-Psychometrician of Surgery [facility] for Pancreatic Disease Research [facility] [place] Cell phone: [phone] / [facility] provider's line [phone]. email: [email or web address] documented in this encounter Plan of Treatment Not on filedocumented as of this encounter Visit Diagnoses + + | Diagnosis | + + | Idiopathic chronic pancreatitis (HCC) - Primary | + + documented in this encounter
--- OUTSIDE RECORDS SUMMARY | ~2019-07-31 | XMS | Encounter Summary ---
Demographics + + + | Address | [address] | | | [place] [address] | + + + | Home Phone | | + + + | Preferred Language | Unknown | + + + | Marital Status | | + + + | Confucianist Affiliation | 1061 | + + + | Race | Unknown | + + + | Ethnic Group | Unknown | + + + Author + + + | Author | [facility] | | | and [place] | + + + | Organization | [facility] | | [...] [place] | | | | | [address] | | + + + + + | Christy Grande | ECON | [address] | | | | | [place] | | | | | [address] | | + + + + + Care Team Providers + +------+ + | Care Religion Instructor Name | Role | Phone | + +------+ + | Juan Demarco MD | PCP | | + +------+ + Encounter Details +--------+ + + + + | Date | Type | Department | Care Team | Description | +--------+ + + + + | 07/20/ | Orders Only | [facility] | Jb Mendiola, | | | 2017 | | CARDIOLOGY FELIBERTO | [address] | | | | | ECHO [address] | [place] [address] | | | | | [place] | [phone] | | | | | [address] | | | | | | [phone] | | | +--------+ + + + [...] + | ECHO COMPLETE | Routin | 07/20/2016 | | Results for this | | | e | 4:00 PM | | procedure are in the | | | | PDT | | results section. | + +--------+ + + + documented in this encounter Results ECHO Complete (07/20/2016 4:00 PM PDT) + + | Specimen | + + | | + + + + + | Impressions | Performed At | + + + | 1. This was a technically difficult study with suboptimal views. 2. | | | Overall left ventricular systolic function is low-normal with, an EF | | | between 50 - 55 %. 3. There is moderate aortic regurgitation with an | | | eccentric jet. Aortic valve was not well visualized but on previous | | | KRAIG was noted to be bicuspid. Aortic valve appears at least | | | mildly-moderately calcified. | | + + + + + + | Narrative | Performed At | + + + | Patient Name: DAYSI GRANDE Date of : 1965 | | | Performing Physician: Jb Mendiola MD, | | | FACC, FACP, FASNC | | | | | | INDICATIONS aortic valve regurgitation CONCLUSIONS | | | 1. This was a technically difficult study with suboptimal | | | views. 2. Overall left ventricular systolic function is low-normal | | | with, an EF between 50 - 55 %. 3. There is moderate aortic | | | regurgitation with an eccentric jet. Aortic valve was not well | | | visualized but on previous KRAIG was noted to be bicuspid. Aortic | | | valve appears at least mildly-moderately calcified. FINDINGS | | | -------- ECG rhythm: Sinus rhythm. Study: A 2-dimensional | | | transthoracic echocardiogram with m-mode, spectral and color flow | | | Doppler was perfomed. Study: This was a technically difficult study | | | with suboptimal views. Left Ventricle: Overall left ventricular | | | systolic function is low-normal with, an EF between 50 - 55 %. Left | | | Ventricle: The left ventricle size is normal. Left Ventricle: Left | | | ventricular wall thickness is normal. Could not assess diastolic | | | function due to poor mitral valve signal. Left Ventricle: Grossly low | | | normal LV systolic function. Unable to comment on regional wall | | | motion. Right Ventricle: The right ventricle appears normal in size. | | | Left Atrium: The left atrium is normal in size. Right Atrium: The | | | right atrium is normal in size. Aortic Valve: There is moderate | | | aortic regurgitation with an eccentric jet. Aortic valve was not | | | well visualized but on previous KRAIG was noted to be bicuspid. Aortic | | | valve appears at least mildly-moderately calcified. Aortic Valve: | | | There is mild aortic stenosis present. Aortic Valve: Functionally | | | bicuspid aortic valve. Mitral Valve: Normal appearing mitral valve. | | | Mitral Valve: No mitral regurgitation. Tricuspid Valve: The tricuspid | | | valve appears structurally normal. Tricuspid Valve: Trace tricuspid | | | regurgitation present. Tricuspid Valve: Pulmonary artery systolic | | | pressure could not be assessed due to inadequate TR jet. Pulmonic | | | Valve: The pulmonic valve was not well visualized. Pericardium: There | | | is no pericardial effusion. IVC/Hepatic Veins: IVC not visualized. | | | Mass: No mass visualized Thrombus: No clot visualized Septum: No ASD | | | observed. Septum: No VSD observed. MEASUREMENTS | | | EDV(Teich): 91.37 ml IVSd: 1.10 cm LVIDd: 4.47 cm LVPWd: | | | 1.12 cm LVOT Diam: 2.25 cm %FS: 27.50 % EF(Teich): | | | 53.58 % ESV(Teich): 42.40 ml LVIDs: 3.24 cm SV(Teich): | | | 48.96 ml RVIDd: 3.65 cm Ao asc: 2.94 cm LAESV(A-L): 50.91 | | | ml LAESV Index (A-L): 22.13 ml/m2 LAAs A2C: 17.71 cm2 LAESV | | | A-L A2C: 56.35 ml LALs A2C: 4.72 cm LAAs A4C: 16.00 cm2 | | | LAESV A-L A4C: 41.00 ml LALs A4C: 5.30 cm RAAs: 13.94 cm2 | | | RAESV A-L: 30.97 ml RAESV MOD: 29.42 ml RALs: 5.33 cm Ao | | | Diam: 3.51 cm AV maxP.26 mmHg AV meanP.19 mmHg AV | | | Vmax: 1.75 m/s AV Vmean: 1.28 m/s AV VTI: 37.85 cm JENNI | | | Vmax: 1.87 cm2 JENNI (VTI): 1.75 cm2 LVOT maxP.69 mmHg | | | LVOT meanP.52 mmHg LVSI Dopp: 28.89 ml/m2 LVSV Dopp: | | | 66.46 ml LVOT Vmax: 0.82 m/s LVOT Vmean: 0.59 m/s LVOT VTI: | | | 16.62 cm Septal e': 0.06 m/s Lateral e': 0.11 m/s PV | | | maxP.22 mmHg PV Vmax: 1.14 m/s TR maxP.80 mmHg TR | | | Vmax: 1.71 m/s Automation Controls Engineer: MIKI Authenticated by: Jb | | | Maury WASHINGTON, FACC, FACP, FASNC Report Date/Time: -- | | | [id number] | | + + + + + | Procedure Note | + + | Kj, Rad Conversion - 11/17/2018 7:26 PM PDT Patient Name: Jen GRANDE of | | : 1965 Performing Physician: Jb Mendiola MD, [facility], | | FACP, | | FASNC INDICATIONS--------- | | --aortic valve regurgitation CONCLUSIONS 1. This was a technically difficult | | study with suboptimal views.2. Overall left ventricular systolic function is low-normal | | with, an EF between 50 - 55 %.3. There is moderate aortic regurgitation with an | | eccentric jet. Aortic valve was not well visualized but on previous KRAIG was noted to be | | bicuspid. Aortic valve appears at least mildly-moderately calcified. | | FINDINGS--------ECG rhythm: Sinus rhythm.Study: A 2-dimensional transthoracic | | echocardiogram with m-mode, spectral and color flow Doppler was perfomed.Study: This was | | a technically difficult study with suboptimal views.Left Ventricle: Overall left | | ventricular systolic function is low-normal with, an EF between 50 - 55 %.Left | | Ventricle: The left ventricle size is normal.Left Ventricle: Left ventricular wall | | thickness is normal. Could not assess diastolic function due to poor mitral valve | | signal.Left Ventricle: Grossly low normal LV systolic function. Unable to comment on | | regional wall motion.Right Ventricle: The right ventricle appears normal in size.Left | | Atrium: The left atrium is normal in size.Right Atrium: The right atrium is normal in | | size.Aortic Valve: There is moderate aortic regurgitation with an eccentric jet. Aortic | | valve was not well visualized but on previous KRAIG was noted to be bicuspid. Aortic | | valve appears at least mildly-moderately calcified.Aortic Valve: There is mild aortic | | stenosis present.Aortic Valve: Functionally bicuspid aortic valve.Mitral Valve: Normal | | appearing mitral valve.Mitral Valve: No mitral regurgitation.Tricuspid Valve: The | | tricuspid valve appears structurally normal.Tricuspid Valve: Trace tricuspid | | regurgitation present.Tricuspid Valve: Pulmonary artery systolic pressure could not be | | assessed due to inadequate TR jet.Pulmonic Valve: The pulmonic valve was not well | | visualized.Pericardium: There is no pericardial effusion.IVC/Hepatic Veins: IVC not | | visualized.Mass: No mass visualizedThrombus: No clot visualizedSeptum: No ASD | | observed.Septum: No VSD observed. MEASUREMENTS EDV(Teich): 91.37 mlIVSd: | | 1.10 cmLVIDd: 4.47 cmLVPWd: 1.12 cmLVOT Diam: 2.25 cm%FS: 27.50 %EF(Teich): | | 53.58 %ESV(Teich): 42.40 mlLVIDs: 3.24 cmSV(Teich): 48.96 mlRVIDd: 3.65 cmAo | | asc: 2.94 cmLAESV(A-L): 50.91 mlLAESV Index (A-L): 22.13 ml/m2LAAs A2C: 17.71 | | [id number] A-L A2C: 56.35 mlLALs A2C: 4.72 cmLAAs A4C: 16.00 [id number] A-L A4C: | | 41.00 mlLALs A4C: 5.30 cmRAAs: 13.94 [id number] A-L: 30.97 mlRAESV MOD: 29.42 | | mlRALs: 5.33 cmAo Diam: 3.51 cmAV maxP.26 mmHgAV meanP.19 mmHgAV Vmax: | | 1.75 m/Stormy Vmean: 1.28 m/Stormy VTI: 37.85 cmAVA Vmax: 1.87 cm2AVA (VTI): 1.75 | | [id number] maxP.69 mmHgLVOT meanP.52 mmHgLVSI Dopp: 28.89 ml/m2LVSV Dopp: | | 66.46 mlLVOT Vmax: 0.82 m/sLVOT Vmean: 0.59 m/sLVOT VTI: 16.62 cmSeptal e': 0.06 | | m/sLateral e': 0.11 m/sPV maxP.22 mmHgPV Vmax: 1.14 m/sTR maxP.80 | | mmHgTR Vmax: 1.71 m/s Automation Controls Engineer: MIKIAuthenticated by: bJ Mendiola MD, FACC, FACP, | | FASNCReport Date/Time: -- [id number] IMPRESSION: 1. This was a technically | | difficult study with suboptimal views.2. Overall left ventricular systolic function is | | low-normal with, an EF between 50 - 55 %.3. There is moderate aortic regurgitation with | | an eccentric jet. Aortic valve was not well visualized but on previous KRAIG was noted to | | be bicuspid. Aortic valve appears at least mildly-moderately calcified. | | | |MEASUREMENTS | | | |EDV(Teich): 91.37 ml | |IVSd: 1.10 cm | |LVIDd: 4.47 cm | |LVPWd: 1.12 cm | |LVOT Diam: 2.25 cm | |%FS: 27.50 % | |EF(Teich): 53.58 % | |ESV(Teich): 42.40 ml | |LVIDs: 3.24 cm | |SV(Teich): 48.96 ml | |RVIDd: 3.65 cm | |Ao asc: 2.94 cm | |LAESV(A-L): 50.91 ml | |LAESV Index (A-L): 22.13 ml/m2 | |LAAs A2C: 17.71 cm2 | |LAESV A-L A2C: 56.35 ml | |LALs A2C: 4.72 cm | |LAAs A4C: 16.00 cm2 | |LAESV A-L A4C: 41.00 ml | |LALs A4C: 5.30 cm | |RAAs: 13.94 cm2 | |RAESV A-L: 30.97 ml | |RAESV MOD: 29.42 ml | |RALs: 5.33 cm | |Ao Diam: 3.51 cm | |AV maxP.26 mmHg | |AV meanP.19 mmHg | |AV Vmax: 1.75 m/s | |AV Vmean: 1.28 m/s | |AV VTI: 37.85 cm | |JENNI Vmax: 1.87 cm2 | |JENNI (VTI): 1.75 cm2 | |LVOT maxP.69 mmHg | |LVOT meanP.52 mmHg | |LVSI Dopp: 28.89 ml/m2 | |LVSV Dopp: 66.46 ml | |LVOT Vmax: 0.82 m/s | |LVOT Vmean: 0.59 m/s | |LVOT VTI: 16.62 cm | |Septal e': 0.06 m/s | |Lateral e': 0.11 m/s | |PV maxP.22 mmHg | |PV Vmax: 1.14 m/s | |TR maxP.80 mmHg | |TR Vmax: 1.71 m/s | | | |Automation Controls Engineer: RK | |Authenticated by: Jb Mendiola MD, FACC, FACP, [facility] | |Report Date/Time: -- [id number] | | | |IMPRESSION: | |1. This was a technically difficult study with suboptimal views. | |2. Overall left ventricular systolic function is low-normal with, an EF between 50 - 55 %. | |3. There is moderate aortic regurgitation with an eccentric jet. Aortic valve was not well visualized but on previous KRAIG was noted to be bicuspid. Aortic valve appears at least mil dly-moderately calcified. | + + documented in this encounter Visit Diagnoses Not on filedocumented in this encounter"
--- OUTSIDE RECORDS SUMMARY | ~2019-07-31 | XMS | Encounter Summary ---
Demographics + + + | Address | [address] | | | [place] [address] | + + + | Home Phone | | + + + | Preferred Language | Unknown | + + + | Marital Status | | + + + | Confucianism Affiliation | ASG | + + + | Race | White | + + + | Ethnic Group | Not or | + + + Author + + + | Author | [facility] | + + + | Organization | [facility] | + + + | Address | Unknown | + + + | Phone | Unavailable | + + + Support + + + + + | Name | Relationship | Address | Phone | + + + + + | Christy Flaherty | ECON | [address] | | | | | [place] | | | | | [address] | | + + + + + Care Team Providers + +------+ + | Care Sugar Cane Farm Manager Name | Role | Phone | + +------+ + | Filippo Chen DO | PCP | | + +------+ + Reason for Visit + + + | Reason | Comments | + + + | Outside Records | Dr. Chen records 03/29 - 12/03/2016 | | Received | | + + + Encounter Details +--------+ + + + + | Date | Type | Department | Care Team | Description | +--------+ + + + + | 12/04/ | Documentati | Neurology at | Butch Dixon | Outside Records | | 2017 | on | [facility] & | G, DO [address] | Received (Dr. Chen | | | | [address] | [address] | records 03/29 - | | | | Deborah Mailcode: CH8C | [place], [place] | 12/03/2016) | | | | [facility] | [address] | | | | | and Loretta, | [phone] | | | | | [facility] | | | | | | [place], [place] | | | | | | [address] | | | | | | [phone] | | | +--------+ + + + [...]
--- OUTSIDE RECORDS SUMMARY | ~2019-07-31 | XMS | Encounter Summary ---
Demographics + + + | Address | [address] | | | [place] [address] | + + + | Home Phone | | + + + | Preferred Language | Unknown | + + + | Marital Status | | + + + | Taoism Affiliation | ASG | + + + [...] [place] | | | | | [address] | | + + + + + Care Team Providers + +------+ + | Care Sueding Machine Operator Name | Role | Phone | + +------+ + | Filippo Chen DO | PCP | | + +------+ + Encounter Details +--------+ + + + + | Date | Type | Department | Care Team | Description | +--------+ + + + + | 08/19/ | MyChart | Digestive Health | Taiwo Tilley, | re: medication | | 2018 | Encounter | Center at [facility] [address] | [address] | | | | | [address] | [address] | | | | | Mailcode: Center | [place], [place] | | | | | for Health and | [address] | | | | | [facility], [address] | [phone] | | | | | [place], [place] | | | | | | [address] | | | | | | [phone] | | | +--------+ + + + [...] | Diagnosis | + + | 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
--- OUTSIDE RECORDS SUMMARY | ~2019-07-31 | XMS | Encounter Summary ---
Demographics + + + | Address | [address] | | | [place] [address] | + + + | Home Phone | | + + + | Preferred Language | Unknown | + + + | Marital Status | | + + + | Alevism Affiliation | ASG | + + + | Race | White | + + + | Ethnic Group | Not or | + + + Author + + + | Author | [facility] | + + + | Organization | [facility] | + + + | Address | Unknown | + + + | Phone | Unavailable | + + + Support + + + + + | Name | Relationship | Address | Phone | + + + + + | Christy Flaherty | ECON | [address] | | | | | [place] | | | | | [address] | | + + + + + Care Team Providers + +------+ + | Care Electric Power Line Repairer Name | Role | Phone | + +------+ + | Filippo Chen DO | PCP | | + +------+ + Encounter Details +--------+ + + + + | Date | Type | Department | Care Team | Description | +--------+ + + + + | 02/23/ | MyChart | Neurology at | Anthony De La O MD | Lamotrigine Question | | 2016 | Encounter | [facility] & | [address] | | | | | Healing [address] | [place], [place] | | | | | Ave Mailcode: [facility] | [address] | | | | | [facility] | [phone] | | | | | and Healing, | | | | | | Building | | | | | | [place], [place] | | | | | | [address] | | | | | | [phone] | | | +--------+ + + + [...]
--- OUTSIDE RECORDS SUMMARY | ~2019-07-31 | XMS | Encounter Summary ---
Demographics + + + | Address | [address] | | | [place] [address] | + + + | Home Phone | | + + + | Preferred Language | Unknown | + + + | Marital Status | | + + + | Latter Day Affiliation | ASG | + + + | Race | White | + + + | Ethnic Group | Not or | + + + Author + + + | Author | [facility] | + + + | Organization | [facility] | + + + | Address | Unknown | + + + | Phone | Unavailable | + + + Support + + + + + | Name | Relationship | Address | Phone | + + + + + | Christy Flaherty | ECON | [address] | | | | | [place] | | | | | [address] | | + + + + + Care Team Providers + +------+ + | Care Hot Air Furnace Installer Repairer Name | Role | Phone | + +------+ + | Filippo Chen DO | PCP | | + +------+ + Encounter Details +--------+ + + + + | Date | Type | Department | Care Team | Description | +--------+ + + + + | 01/18/ | Hospital | Diagnostic Imaging | Paras Baker | | | 2016 | Encounter | Services [address] MD [address] | | | | | [address] | [address] | | | | | [place], [place] | [place], [place] | | | | | [address] | [address] | | | | | | [phone] | | | | | | | [...] | + +--------+ + + + | OUTSIDE BODY - READ | Routin | 01/18/2017 | Pancreatic mass | Results for this | | REQUEST | e | 12:00 AM | | procedure are in the | | | | PDT | | results section. | + +--------+ + + + documented in this encounter Results OUTSIDE BODY - READ REQUEST (01/18/2017 12:00 AM PDT) + + | Specimen | + + | | + + + + + | Narrative | Performed At | + + + | EXAM: Professional interpretation only of multiphase CT of the | [facility] | | abdomen. DATE OF INTERPRETATION REQUEST: 02/24/2017. DATE OF | RADIOLOGY VOICE | | IMAGE ACQUISITION: 01/18/2017. HISTORY: Pancreatic mass. | RECOGNITION | | COMPARISON: None. TECHNIQUE: Multiphase CT of the abdomen before | | | and after intravenous contrast administration. Number of images: | | | 1483 FINDINGS: LOWER THORAX: Unremarkable. LIVER: | | | Unremarkable. BILIARY: Unremarkable. SPLEEN: Unremarkable. | | | PANCREAS: Mild peripancreatic stranding with minimal pancreatic | | | interstitial edema consistent with known mild pancreatitis. No ductal | | | dilatation identified. No pancreatic mass seen. ADRENALS: | | | Unremarkable. KIDNEYS/URETERS: Unremarkable. GI TRACT: | | | Unremarkable. PERITONEUM: No free air or fluid. LYMPH NODES: No | | | lymphadenopathy. VESSELS: Unremarkable. BONES AND SOFT TISSUES: | | | Unremarkable. IMPRESSION: No obvious pancreatic mass identified. | | | Trace peripancreatic stranding is suggestive of acute edematous mild | | | pancreatitis. No other pancreatic abnormality identified. I | | | have personally reviewed the images and, if necessary, edited the | | | report. I agree with the report as now presented. | | + + + [...] Diagnosis | + + | Pancreatic mass Unspecified disease of pancreas | + + documented in this encounter"
--- OUTSIDE RECORDS SUMMARY | ~2019-07-31 | XMS | Encounter Summary ---
Demographics + + + | Address | [address] | | | [place] [address] | + + + | Home Phone | | + + + | Preferred Language | Unknown | + + + | Marital Status | | + + + | Yazdanism Affiliation | 1061 | + + + | Race | Unknown | + + + | Ethnic Group | Unknown | + + + Author + + + | Author | [facility] | | | and [place] | + + + | Organization | [facility] | | | and [...] [place] | | | | | [address] | | + + + + + | Christy Flaherty | ECON | [address] | | | | | [place] | | | | | [address] | | + + + + + Care Team Providers + +------+ + | Care Factory Clerk Name | Role | Phone | + +------+ + | Juan Demarco MD | PCP | | + +------+ + Encounter Details +--------+ + + + + | Date | Type | Department | Care Team | Description | +--------+ + + + + | 05/15/ | Orders Only | [facility] | Conversion | | | 2015 | | INFECTIOUS DISEASE | Transaction, | | | | | [address] | Provider Unknown | | | | | [place], [place] | | | | | | [address] | (Fax) | | | | | [phone] | | | +--------+ + + + [...] + | ANTISTREPTOLYSIN O, | Routin | 05/15/2015 | | Results for this | | QUANT | e | 12:00 AM | | procedure are in the | | | | PST | | results section. | + +--------+ + + + | B TYPE NATRIURETIC | Routin | 05/15/2015 | | Results for this | | PEPTIDE | e | 12:00 AM | | procedure are in the | | | | PST | | results section. | + +--------+ + + + documented in this encounter Results Antistreptolysin O, Quant (05/15/2015 12:00 AM PST) + +---------+ + + + | Component | Value | Ref Range | Performed | Pathologist | | | | | At | Signature | + +---------+ + + + | Anti | 359 (A) | 0 - 250 IU/ml | [...] | | | + +---------+ + + B Type Natriuretic Peptide (05/15/2015 12:00 AM PST) + +-------+ + + + | Component | Value | Ref Range | Performed | Pathologist | | | | | At | Signature | + +-------+ + + + | BNP | 19 | 0 - 100 pg/mL | EXTERNAL | | | | | [...]
--- OUTSIDE RECORDS SUMMARY | ~2019-07-31 | XMS | Encounter Summary ---
Demographics + + + | Address | [address] | | | [place] [address] | + + + | Home Phone | | + + + | Preferred Language | Unknown | + + + | Marital Status | | + + + | Orthodoxy Affiliation | ASG | + + + | Race | White | + + + | Ethnic Group | Not or | + + + Author + + + | Author | [facility] | + + + | Organization | [facility] | + + + | Address | Unknown | + + + | Phone | Unavailable | + + + Support + + + + + | Name | Relationship | Address | Phone | + + + + + | Christy Flaherty | ECON | [address] | | | | | [place] | | | | | [address] | | + + + + + Care Team Providers + +------+ + | Care Field Hockey And Lacrosse Coach Name | Role | Phone | + +------+ + | Filippo Chen DO | PCP | | + +------+ + Encounter Details +--------+ + + + + | Date | Type | Department | Care Team | Description | +--------+ + + + + | 04/26/ | Telephone | Digestive Health | Taiwo Tilley, | | | 2017 | | [place] at [facility] [address] | [address] | | | | | [address] | [address] | | | | | Mailcode: Center | [place], [place] | | | | | for Health and | [address] | | | | | [facility] [address] | [phone] | | | | | [place], [place] | | | | | | [address] | | | | | | [phone] | | | +--------+ + + + [...]
--- OUTSIDE RECORDS SUMMARY | ~2019-07-31 | XMS | Encounter Summary ---
Demographics + + + | Address | [address] | | | [place] [address] | + + + | Home Phone | | + + + | Preferred Language | Unknown | + + + | Marital Status | | + + + | Taoism Affiliation | 1061 | + + + [...] [place] | | | | | [address] | | + + + + + | Christy Grande | ECON | [address] | | | | | [place] | | | | | [address] | | + + + + + Care Team Providers + +------+ + | Care Enterprise Cloud Architect Name | Role | Phone | + +------+ + | Juan Demarco MD | PCP | | + +------+ + Encounter Details +--------+ + + + + | Date | Type | Department | Care Team | Description | +--------+ + + + + | 01/08/ | Orders Only | [facility] | Jb Mendiola, | | | 2014 | | [place] | [address] | | | | | [address] | [place] [address] | | | | | [place], [place] | [phone] | | | | | [address] | | | | | | [phone] | | | +--------+ + + + [...] + +--------+ + + + | ECHO TRANSESOPHAGEAL | Routin | 01/08/2015 | | Results for this | | (KRAIG) | e | 9:15 AM | | procedure are in the | | | | PDT | | results section. | + +--------+ + + + documented in this encounter Results ECHO Transesophageal (KRAIG) (01/08/2015 9:15 AM PDT) + + | Specimen | + + | | + + + + + | Impressions | Performed At | + + + | 1. Overall left ventricular systolic function is normal with, an EF | | | between 55 - 60 %. 2. There is severe aortic regurgitation. 3. There | | | is significant calcification of the right coronary cusp that extend | | | partially to the left cusp, that may indicat prior infection (SBE) | | | causing distortion in the coacptstion of the Aortic valve, leading to | | | severe AI. 4. Mild mitral regurgitation is present. 5. Ascending | | | aorta, aortic arch and descending thoracic aorta are of normal caliber | | | with no significant atherosclerotic disease. | | + + + + + + | Narrative | Performed At | + + + | Patient Name: JOHNNY GRANDE Date of : 1965 | | | Performing Physician: Melinda Clifton MD | | | | | | INDICATIONS Rheumatic fever - Aortic valve disorder. | | | CONCLUSIONS 1. Overall left ventricular systolic | | | function is normal with, an EF between 55 - 60 %. 2. There is severe | | | aortic regurgitation. 3. There is significant calcification of the | | | right coronary cusp that extend partially to the left cusp, that may | | | indicat prior infection (SBE) causing distortion in the coacptstion of | | | the Aortic valve, leading to severe AI. 4. Mild mitral regurgitation | | | is present. 5. Ascending aorta, aortic arch and descending thoracic | | | aorta are of normal caliber with no significant atherosclerotic | | | disease. FINDINGS -------- Procedure: The patient was brought to | | | the catheterization laboratory holding area in the fasting state. | | | Informed consent was obtained after benefits and risks of the | | | procedure were discussed with the patient including but not limited to | | | the potential for esophageal puncture and . The oropharynx | | | was anesthetized with 1% Hurricane spray. After conscious sedation, | | | the transesophageal probe was advanced and placed in the esophagus and | | | multiple projections of the cardiovascular structures were acquired | | | and recorded. This was followed by advancement of the probe into | | | the stomach for transgastric imaging. Finally, interrogation of the | | | descending aorta and arch was performed. The probe was removed. | | | The patient tolerated the procedure well. There were no | | | immediate complications. 2 D, pulsed and continuous wave form and | | | color images were interpreted in real time. Medications: 5 mg of | | | Versed and Medications: 25 mcg of Fentanyl was given intraveonously | | | for conscious sedation. Study quality: This was a technically good | | | study. Left Ventricle: The left ventricle size is normal. Left | | | Ventricle: Left Ventricle: Overall left ventricular systolic function | | | is normal with, an EF between 55 - 60 %. Left Atrium: The left | | | atrium is normal in size and function. Left Atrium: Normal left | | | atrial appendage without evidence for thrombi. Right Ventricle: The | | | right ventricle is normal in size and function. Right Atrium: The | | | right atrium is normal in size and function. Interatrial Septum: No | | | evidence for intra-atrial shunt by bubble study. Interatrial Septum: | | | No shunt seen with color Doppler. Interatrial Septum: No shunt seen | | | with bubble study. Aortic Valve: There is severe aortic | | | regurgitation. Aortic Valve: There is significant calcification of | | | the right coronary cusp that extend partially to the left cusp, that | | | may indicat prior infection (SBE) causing distortion in the | | | coacptstion of the Aortic valve, leading to severe AI. Mitral Valve: | | | Mild mitral regurgitation is present. Tricuspid Valve: The tricuspid | | | valve appears structurally normal. Trace/Mild (physiologic) | | | regurgitation. Tricuspid Valve: Trace tricuspid regurgitation | | | present. Pulmonic Valve: The pulmonic valve is normal. Aorta: | | | Ascending aorta, aortic arch and descending thoracic aorta are of | | | normal caliber with no significant atherosclerotic disease. Mass: No | | | mass visualized. Thrombus: No clot visualized. Pericardium: The | | | pericardium is normal. MEASUREMENTS AR Dec Onslow: | | | 4.15 m/s2 AR Dec Time: 1031.72 ms AR maxP.39 mmHg AR | | | PHT: 299.20 ms AR Vmax: 4.28 m/s Resident Care Assistant: VIVIANA | | | Authenticated by: Melinda Clifton MD Report Date/Time: 01-08-2015 | | | 21:24:30 | | + + + + + | Procedure Note | + + | Mohit Underwood Conversion - 11/18/2018 12:31 PM PDT Patient Name: Jen GRANDE of | | : 1965 Performing Physician: Melinda Clifton | | MD INDICATIONS R | | heumatic fever - Aortic valve disorder. CONCLUSIONS 1. Overall left | | ventricular systolic function is normal with, an EF between 55 - 60 %.2. There is severe | | aortic regurgitation.3. 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 Mild mitral | | regurgitation is present.5. Ascending aorta, aortic arch and descending thoracic aorta | | are of normal caliber with no significant atherosclerotic disease. | | FINDINGS--------Procedure: The patient was brought to the catheterization laboratory | | holding area in the fasting state. Informed consent was obtained after benefits and | | risks of the procedure were discussed with the patient including but not limited to the | | potential for esophageal puncture and . The oropharynx was anesthetized with 1% | | Hurricane spray. After conscious sedation, the transesophageal probe was advanced and | | placed in the esophagus and multiple projections of the cardiovascular structures were | | acquired and recorded. This was followed by advancement of the probe into the stomach | | for transgastric imaging. Finally, interrogation of the descending aorta and arch was | | performed. The probe was removed. The patient tolerated the procedure well. There | | were no immediate complications. 2 D, pulsed and continuous wave form and color images | | were interpreted in real time.Medications: 5 mg of Versed andMedications: 25 mcg of | | Fentanyl was given intraveonously for conscious sedation.Study quality: This was a | | technically good study.Left Ventricle: The left ventricle size is normal.Left | | Ventricle:Left Ventricle: Overall left ventricular systolic function is normal with, an | | EF between 55 - 60 %.Left Atrium: The left atrium is normal in size and function.Left | | Atrium: Normal left atrial appendage without evidence for thrombi.Right Ventricle: The | | right ventricle is normal in size and function.Right Atrium: The right atrium is normal | | in size and function.Interatrial Septum: No evidence for intra-atrial shunt by bubble | | study.Interatrial Septum: No shunt seen with color Doppler.Interatrial Septum: No shunt | | seen with bubble study.Aortic Valve: There is severe aortic regurgitation.Aortic Valve: | | There is significant calcification of the right coronary cusp that extend partially to | | the left cusp, that 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 Trace/Mild (physiologic) regurgitation.Tricuspid Valve: Trace tricuspid | | regurgitation present.Pulmonic Valve: The pulmonic valve is normal.Aorta: Ascending | | aorta, aortic arch and descending thoracic aorta are of normal caliber with no | | significant atherosclerotic disease.Mass: No mass visualized.Thrombus: No clot | | visualized.Pericardium: The pericardium is normal. MEASUREMENTS AR Dec | | Onslow: 4.15 m/s2AR Dec Time: 1031.72 msAR maxP.39 mmHgAR PHT: 299.20 msAR | | Vmax: 4.28 m/s Resident Care Assistant: VIVIANAAuthenticated by: Melinda Garner Date/Time: | | 01-08-2015 21:24:30 IMPRESSION: 1. Overall left ventricular systolic function is normal | | with, an EF between 55 - 60 %.2. There is severe aortic regurgitation.3. There is | | significant calcification of the right coronary cusp that extend partially to the left | | cusp, that may indicat prior infection (SBE) causing distortion in the coacptstion of | | the Aortic valve, leading to severe AI.4. Mild mitral regurgitation is present.5. | | Ascending aorta, aortic arch and descending thoracic aorta are of normal caliber with no | | significant atherosclerotic disease. | |Thrombus: No clot visualized. | |Pericardium: The pericardium is normal. | | | |MEASUREMENTS | | | |AR Dec Onslow: 4.15 m/s2 | |AR Dec Time: 1031.72 ms | |AR maxP.39 mmHg | |AR PHT: 299.20 ms | |AR Vmax: 4.28 m/s | | | |Resident Care Assistant: VIVIANA | |Authenticated by: Melinda Clifton MD | |Report Date/Time: 01-08-2015 21:24:30 | | | |IMPRESSION: | |1. Overall left ventricular systolic function is normal with, an EF between 55 - 60 %. | |2. There is severe aortic regurgitation. | |3. There is significant calcification of the right coronary cusp that extend partially to t he left cusp, that may indicat prior infection (SBE) causing distortion in the coacptstion o f the Aortic valve, leading to severe AI. | |4. Mild mitral regurgitation is present. | |5. Ascending aorta, aortic arch and descending thoracic aorta are of normal caliber with no significant atherosclerotic disease. | + + documented in this encounter Visit Diagnoses Not on filedocumented in this encounter"
--- OUTSIDE RECORDS SUMMARY | ~2019-07-31 | XMS | Encounter Summary ---
Demographics + + + | Address | [address] | | | [place] [address] | + + + | Home Phone | | + + + | Preferred Language | Unknown | + + + | Marital Status | | + + + | Islam Affiliation | 1061 | + + + | Race | Unknown | + + + | Ethnic Group | Unknown | + + + Author + + + | Author | [facility] | | | and [place] | + + + | Organization | [facility] | | | [...] [place] | | | | | [address] | | + + + + + | Christy Flaherty | ECON | [address] | | | | | [place] | | | | | [address] | | + + + + + Care Team Providers + +------+ + | Care Mergers And Acquisitions Consultant Name | Role | Phone | + +------+ + | Juan Demarco MD | PCP | | + +------+ + Encounter Details +--------+ + + + + | Date | Type | Department | Care Team | Description | +--------+ + + + + | 07/25/ | Orders Only | [facility] | Conversion | | | 2015 | | INFECTIOUS DISEASE | Transaction, | | | | | [address] | Provider Unknown | | | | | [place], [place] | | | | | | [address] | (Fax) | | | | | [phone] | | | +--------+ + + + [...]
--- OUTSIDE RECORDS SUMMARY | ~2019-07-31 | XMS | Encounter Summary ---
Demographics + + + | Address | [address] | | | [place] [address] | + + + | Home Phone | | + + + | Preferred Language | Unknown | + + + | Marital Status | | + + + | Sikh Affiliation | 1061 | + + + | Race | Unknown | + + + | Ethnic Group | Unknown | + + + Author + + + | Author | [facility] | | | and [place] | + + + | Organization | [facility] | | | [...] [place] | | | | | [address] | | + + + + + | Christy Flaherty | ECON | [address] | | | | [place] | | | | | [address] | | + + + + + Care Team Providers + +------+ + | Care Teletypewriter Operator Name | Role | Phone | + +------+ + | Juan Demarco MD | PCP | | + +------+ + Reason for Visit + + + | Reason | Comments | + + + | Referral | | + + + Encounter Details +--------+ + + + + | Date | Type | Department | Care Team | Description | +--------+ + + + + | 02/02/ | Telephone | [facility] | Carlos Morales MD | Referral | | 2017 | | GASTROENTEROLOGY | [address], [place] | | | | | [address] [place] | [address] [place], [place] | | | | | [address] [place] | [address] | | | | | [address] | | | | | | [phone] | | | +--------+ + + + [...]
--- OUTSIDE RECORDS SUMMARY | ~2019-07-31 | XMS | Encounter Summary ---
Demographics + + + | Address | [address] | | | [place] [address] | + + + | Home Phone | | + + + | Preferred Language | Unknown | + + + | Marital Status | | + + + | Lutheran Affiliation | 1061 | + + + | Race | Unknown | + + + | Ethnic Group | Unknown | + + + Author + + + | Author | [facility] | | | and [place] | + + + | Organization | [facility] | | | and [...] [place] | | | | | [address] | | + + + + + | Christy Flaherty | ECON | [address] | | | | | [place] | | | | | [address] | | + + + + + Care Team Providers + +------+ + | Care Electrical Prospector Name | Role | Phone | + +------+ + | Juan Demarco MD | PCP | | + +------+ + Encounter Details +--------+ + + + + | Date | Type | Department | Care Team | Description | +--------+ + + + + | 11/07/ | Orders Only | [facility] | Conversion | | | 2015 | | INFECTIOUS DISEASE | Transaction, | | | | | [address] | Provider Unknown | | | | | [place], [place] | | | | | | [address] | (Fax) | | | | | [phone] | | | +--------+ + + + [...] | CBC WITH MANUAL | Routin | 11/08/2015 | | Results for this | | DIFFERENTIAL | e | 12:00 AM | | procedure are in the | | | | PDT | | results section. | + +--------+ + + + | ANTISTREPTOLYSIN O, | Routin | 11/08/2015 | | Results for this | | QUANT | e | 12:00 AM | | procedure are in the | | | | PDT | | results section. | + +--------+ + + + documented in this encounter Results Antistreptolysin O, Quant (11/08/2015 12:00 AM PDT) + +---------+ + + + | Component | Value | Ref Range | Performed | Pathologist | | | | | At | Signature | + +---------+ + + + | Anti | 299 (A) | 0 - 250 | EXTERNAL | | | Streptolysi | [...] +---------+ + + CBC with Manual Differential (11/08/2015 12:00 AM PDT) + + + + + + | Component | Value | Ref Range | Performed | Pathologist | | | | | At | Signature | + + + + + + | WBC | 4.8 | 4.5 - 11.0 10 | EXTERNAL | | | | | | LAB | | + + + + + + | Red Blood | 4.80 | 4.3 - 5.7 10 | EXTERNAL | | | Cells | | | LAB | | | Counted | | | | | + + + + + + | Hemoglobin | 14.8 | 13.5 - 18.0 | EXTERNAL | | | | | g/dL | LAB | | + + + + + + | Hematocrit, | 42.6 | 41 - 50 % | EXTERNAL | | | POC | | | LAB | | + + + + + + | MCV | 88.8 | 81 - 99 fL | EXTERNAL | | | | | | LAB | | + + + + + + | MCH | 31 | 27 - 33 pg | EXTERNAL | | | | | | LAB | | + + + + + + | MCHC | 35 | 30 - 36 g/dL | EXTERNAL | | | | | | LAB | | + + + + + + | RDW-CV | 13.9 | 10.5 - 15.0 % | EXTERNAL | | | | | | LAB | | + + + + + + | Platelet | 166 | 140 - 440 K/ L | EXTERNAL | | | Count | | | LAB | | | Plasma | | | | | + + + + + + | MPV | | fL | EXTERNAL | | | | | | LAB | | + + + + + + | % Segmented | 34.9 (A) | 39 - 80 % | EXTERNAL | | | | | | LAB | | | Neutrophils | | | | | + + + + + + | % | 53.3 (A) | 24 - 44 % | EXTERNAL | | | Lymphocytes | | | LAB | | + + + + + + | % Monocytes | 9.2 | 0 - 12 % | EXTERNAL | | | | | | LAB | | + + + + + + | % | 2.2 | 0 - 6 % | EXTERNAL | | | Eosinophils | | | LAB | | + + + + + + | % Basophils | 0.4 | 0 - 2 % | EXTERNAL [...]
--- OUTSIDE RECORDS SUMMARY | ~2019-07-31 | XMS | Encounter Summary ---
Demographics + + + | Address | [address] | | | [place] [address] | + + + | Home Phone | | + + + | Preferred Language | Unknown | + + + | Marital Status | | + + + | Sabianist Affiliation | 1061 | + + + | Race | Unknown | + + + | Ethnic Group | Unknown | + + + Author + + + | Author | [facility] | | | and [place] | + + + | Organization | [facility] | | [...] [place] | | | | | [address] | | + + + + + | Christy Flaherty | ECON | [address] | | | | | [place] | | | | | [address] | | + + + + + Care Team Providers + +------+ + | Care Toy Maker Name | Role | Phone | + +------+ + | Juan Demarco MD | PCP | | + +------+ + Encounter Details +--------+ + + + + | Date | Type | Department | Care Team | Description | +--------+ + + + + | 12/19/ | Hospital | [facility] | Conversion | | | 2015 | [facility] | [place] | Transaction, | | | | | OUTPATIENT | Provider Unknown | | | | | PROCEDURES [address] | [address] | (Fax) | | | | | [place], [place] | | | | | | [address] | | | | | | [phone] | | | +--------+ + + + [...]
--- OUTSIDE RECORDS SUMMARY | ~2019-07-31 | XMS | Encounter Summary ---
Demographics + + + | Address | [address] | | | [place] [address] | + + + | Home Phone [...] [place] | | | | | [address] | | + + + + + Care Team Providers + +------+ + | Care Middle School Teacher Name | Role | Phone | + +------+ + | Jarvis Willard MD | PCP | | + +------+ + Encounter Details +--------+ + + + + | Date | Type | Department | Care Team | Description | +--------+ + + + + | 05/08/ | MyChart | Food and Nutrition | [address] | [facility] | | 2020 | Encounter | Services at [facility] | Ivy Fonseca | Referral | | | | [address] | Jayshree Santillan [facility], | | | | | Gonzalo Fonseca | [place] [address] | | | | | [place] Floor | | | | | | [place], [place] | | | | | | [address] | | | | | | [phone] | | | +--------+ + + + [...]
--- OUTSIDE RECORDS SUMMARY | ~2019-07-31 | XMS | Encounter Summary ---
Demographics + + + | Address | [address] | | | [place] [address] | + + + | Home Phone [...] + + + | Author | [facility] | + + + | Organization | [facility] | + + + | Address | Unknown | + + + | Phone | Unavailable | + + + Support + + + + + | Name | Relationship | Address | Phone | + + + + + | Christy Flaherty | ECON | [address] | | | | | [place] | | | | | [address] | | + + + + + Care Team Providers + +------+ + | Care Customer Account Representative Name | Role | Phone | + +------+ + | Filippo Chen DO | PCP | | + +------+ + Encounter Details +--------+ + + + + | Date | Type | Department | Care Team | Description | +--------+ + + + + | 05/06/ | Orders Only | Digestive Health | Taiwo Tilley, | Recurrent | | 2018 | | Center at [facility] | [address] [facility] | pancreatitis (HCC) | | | | [address] | [address] | | | | | Mailcode: Center | [place], [place] | | | | | for Health and | [address] | | | | | Healing, [address] | [phone] | | | | | [place], [place] | | | | | | [address] | | | | | | [phone] | | | +--------+ + + + [...] | + +--------+ + + + | LAB OTHER | Routin | 05/04/2017 | Recurrent | Results for this | | | e | 1:20 PM | pancreatitis (HCC) | procedure are in the | | | | PST | | results section. | + +--------+ + + + documented in this encounter Results LAB OTHER (05/04/2017 1:20 PM PST) + [...] REFERRAL | Test Performed by | | [facility] | | | LAB NAME | [facility] | | REFERENCE | | | | [address] . | | LAB | | | | [place] [address] | | | | | | | [...] pancreatitis | + + documented in this encounter"
--- OUTSIDE RECORDS SUMMARY | ~2019-07-31 | XMS | Encounter Summary ---
Demographics + + + | Address | [address] | | | [place] [address] | + + + | Home Phone [...] [place] | | | | | [address] | | + + + + + Care Team Providers + +------+ + | Care Gunner Mate Name | Role | Phone | + +------+ + | Jarvis Willard MD | PCP | | + +------+ + Reason for Visit + + + | Reason | Comments | + + + | Question | | + + + Encounter Details +--------+ + + + + | Date | Type | Department | Care Team | Description | +--------+ + + + + | 01/27/ | Telephone | Digestive Health | Taiwo Tilley, | Question | | 2019 | | [place] at [facility] [address] | MD [address] | | | | | [address] | [address] | | | | | Mailcode: Center | [place], [place] | | | | | [facility] and | [address] | | | | | [facility] [address] | [phone] | | | | | [place], [place] | | | | | | [address] | | | | | | [phone] | | | +--------+ + + + [...]
--- OUTSIDE RECORDS SUMMARY | ~2019-07-31 | XMS | Encounter Summary ---
Demographics + + + | Address | [address] | | | [place] [address] | + + + | Home Phone | | + + + | Preferred Language | Unknown | + + + | Marital Status | | + + + | Anglican Affiliation | ASG | + + + [...] [place] | | | | | [address] | | + + + + + Care Team Providers + +------+ + | Care Forming Mill Operator Name | Role | Phone | [...] | | | | | | [address] | | | | | | [address] | | | | | | Mailcode: [address] | | | | | | [address] | | | | | | [address] [place], [place] | | | | | | [address] | | | | | | [phone] | | | +--------+ + + + [...] +----+---+ + + | | 1 | Timeout | | | | 3 | | [...] perfume, lotions or powder. Remove any nail kazakh from at least one fingernail. Do not [...] Time: Someone from your surgeon's office or [facility] will provide you with information regarding [...] it is after office hours, call the [facility] tipping machine operator at [phone] and ask them to page your doc tor. documented in this encounter Plan of Treatment Not on filedocumented as of this encounter Visit Diagnoses Not on filedocumented in this encounter"
--- OUTSIDE RECORDS SUMMARY | ~2019-07-31 | XMS | Encounter Summary ---
Demographics + + + | Address | [address] | | | [place] [address] | + + + | Home Phone | | + + + | Preferred Language | Unknown | + + + | Marital Status | | + + + | [employer] Affiliation | 1061 | + + + [...] [place] | | | | | [address] | | + + + + + | Christy Flaherty | ECON | [address] | | | | | [place] | | | | | [address] | | + + + + + Care Team Providers + +------+ + | Care Water Quality Assistant Name | Role | Phone | + +------+ + | Juan Demarco MD | PCP | | + +------+ + Encounter Details +--------+ + + + + | Date | Type | Department | Care Team | Description | +--------+ + + + + | 12/19/ | Hospital | [facility] | Conversion | | | 2015 | [facility] | [facility] | Transaction, | | | | | OUTPATIENT | Provider Unknown | | | | | PROCEDURES [address] | (Fax) | | | | | [place], [place] | | | | | | [address] | | | | | | [phone] | | | +--------+ + + + [...]
--- OUTSIDE RECORDS SUMMARY | ~2019-07-31 | XMS | Encounter Summary ---
Demographics + + + | Address | [address] | | | [place] [address] | + + + | Home Phone | | + + + | Preferred Language | Unknown | + + + | Marital Status | | + + + | Buddhism Affiliation | ASG | + + + | Race | White | + + + | Ethnic Group | Not or | + + + Author + + + | Author | [facility] | + + + | Organization | [facility] | + + + | Address | Unknown | + + + | Phone | Unavailable | + + + Support + + + + + | Name | Relationship | Address | Phone | + + + + + | Christy Flaherty | ECON | [address] | | | | | [place] | | | | | [address] | | + + + + + Care Team Providers + +------+ + | Care Control Clerk Food And Beverage Name | Role | Phone | + [...] | 2019 | Encounter | Center at [address] | [address] [facility] | Frequency of Pain | | | | [address] | [address] | and Other Symptoms | | | | Mailcode: Center | [place], [place] | | | | | for Health and | [address] | | | | | Healing, Building [address] | [phone] | | | | | [place], [place] | | | | | | [address] | | | | | | [phone] | | | +--------+ + + + [...]
--- OUTSIDE RECORDS SUMMARY | ~2019-07-31 | XMS | Encounter Summary ---
Demographics + + + | Address | [address] | | | [place] [address] | + + + | Home Phone [...] [place] | | | | | [address] | | + + + + + Care Team Providers + +------+ + | Care Director Agricultural Services Name | Role | Phone | + [...]
--- OUTSIDE RECORDS SUMMARY | ~2019-07-31 | XMS | Encounter Summary ---
Demographics + + + | Address | [address] | | | [place] [address] | + + + | Home Phone | | + + + | Preferred Language | Unknown | + + + | Marital Status | | + + + | Anglican Affiliation | 1061 | + + + [...] [place] | | | | | [address] | | + + + + + | Christy Flaherty | ECON | [address] | | | | | [place] | | | | | [address] | | + + + + + Care Team Providers + +------+ + | Care Wind Turbine Performance Engineer Name | Role | Phone | + +------+ + | Juan Demarco MD | PCP | | + +------+ + Reason for Visit + + + | Reason | Comments | + + + | Hand Injury | room 2/ OM 08/18/12 right hand | + + + Encounter Details +--------+---------+ + + + | Date | Type | Department | Care Team | Description | +--------+---------+ + + + | 09/02/ | Office | [facility] | Cecilia, Aure | Localized skin mass, | | 2012 | Visit | CARE [address] | MD Janel [address] | lump, or swelling | | | | [place], [place] | [address] | (Primary Dx); Place | | | | [address] | [place] [address] | of occurrence, | | | | [phone] | [phone] | industrial places | | | | | | and premises; | | | | | | Civilian activity | | | | | | done for income or | | | | | | pay; Other accident | | | | | | caused by striking | | | | | | against or being | | | | | | struck accidentally | | | | | | by objects or | | | | | | persons with or | | | | | | without subsequent | | | | | | fall | +--------+---------+ + + + Social History [...] + + + | Blood Pressure | 118/72 | 09/02/2012 10:34 AM | | | | | PDT | | + + + + + | Pulse | 72 | 09/02/2012 10:34 AM | | | | | PDT | | + + + + + | Temperature | 37.1 C (98.8 F) | 09/02/2012 10:34 AM | | | | | PDT | | + + + + + | Respiratory Rate | 16 | 09/02/2012 10:34 AM | | | | | PDT | | + + + + + | Oxygen Saturation | 98% | 09/02/2012 10:34 AM | | | | | PDT | | + + + + + | Inhaled Oxygen | - | - | | | Concentration | | | | + + + + + | Weight | 98 kg (216 lb) | 09/02/2012 10:34 AM | | | | | PDT | | + + + + + | Height | 170.2 cm (5' 7") | 09/02/2012 10:34 AM | | | | | PDT | | + + + + + | Body Mass Index | 33.83 | 09/02/2012 10:34 AM | | | | | PDT | | + + + + + documented in this encounter Progress Notes Aure Brooks MD - 09/02/2012 11:58 AM PDTSee dictation # [id number] sign ed by Aure Brooks MD at 09/02/2012 12:02 PM Aure Villalta MD - 3 12:00 AM PDT , 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 GUARANTOR: [employer]. DATE OF INJURY: 08/18/2012 CLAIM #[id number] CHIEF COMPLAINT: Right hand swelling. SUBJECTIVE: The patient is a 47-year-old male who presents to Urgent Care today complaining of swelling in the palm of the right hand since an injury he sustained while at work. He s tates he was using a wrench when the wrench slipped and was forcefully pushed into the palm of the right hand. At that time hand felt sore, but he had no diffuse swelling and had no bruising. He awoke the next morning with a tender lump in the middle of the palm of the rig ht hand. He continues to have the localized area of swelling which with direct pressure cre ates some pain. He has full function of the hand and denies any numbness, tingling, or weak ness of the hand. He states he has no problems with the wrist or fingers. He is right-hand dominant. PAST MEDICAL HISTORY: Hyperlipidemia. MEDICATIONS: See EMR. ALLERGIES: SEE EMR. OBJECTIVE VITAL SIGNS: Blood pressure 118/72, pulse 72, respirations 16, temperature 98.8, and O2 sa turation 98% on room air, weight 216 pounds, height 5 feet 7 inches, and pain is 0/10 on a pain scale. GENERAL: Well-developed, well-nourished male in no apparent distress, pleasant and cooperat aubrey. EXTREMITIES: No clubbing, cyanosis or edema. Radial pulses 2+/[address] nontender, full range of motion. Right hand: Tender localized area of swelling just prox imal to the third MCP on the palmar aspect of the hand. There is a very thickened overlying callus which makes it very difficult to palpate consistency of the localized area of swell ing. Palpation does create some tenderness. There is no movement of the area with flexion a nd extension of the middle finger. There is no overlying erythema and no ecchymoses. He has full range of motion of all digits. Sensation is grossly intact. IMAGING: Right hand x-ray is negative to my review. ASSESSMENT AND PLAN LOCALIZED SWELLING IN THE RIGHT PALM STATUS POST INJURY. This likely very well may represen t a ganglion cyst, however, it is difficult to ascertain and define because of the overlyin g callus. I have recommended symptomatic treatment at this time, I discussed nature of the ganglion cysts and the options for treatment if he continues to be symptomatic. I have rele ased him to modified duty with instructions to basically to avoid forceful gripping and gra sping type of activities with the right hand. He will follow up with Dr. Brooks, Occupation al Medicine, in 1 to 2 weeks for reevaluation and further work restrictions if needed. He w ill follow up sooner should he have further problems, questions, or concerns, or should sym ptoms worsen. Aure Brooks MD PV / MS JOB #: [id number] signed by Aure Brooks MD at 09/07/2012 10:01 AM PDTdo cumented in this encounter Plan of Treatment + +---------+--------+ + + | Name | Type | Priori | Associated Diagnoses | Order Schedule | | | | ty | | | + +---------+--------+ + + | XR Hand Right 3 + Vw | Imaging | Routin | Localized skin | Expected: | | | | e | mass, lump, or | 09/02/2012, Expires: | | | | | swelling | 09/02/2013 | + +---------+--------+ + + documented as of this encounter Visit Diagnoses + + | Diagnosis | + + | Localized skin mass, lump, or swelling - Primary Localized superficial swelling, | | mass, or lump | + + | Place of occurrence, industrial places and premises | + + | Civilian activity done for income or pay | + + | Other accident caused by striking against or being struck accidentally by objects or | | persons with or without subsequent fall | + + documented in this encounter
--- OUTSIDE RECORDS SUMMARY | ~2019-07-31 | XMS | Encounter Summary ---
Demographics + + + | Address | [address] | | | [place] [address] | + + + | Home Phone [...] [place] | | | | | [address] | | + + + + + Care Team Providers + +------+ + | Care Second Cook And Baker Name | Role | Phone | + +------+ + | Filippo Chen DO | PCP | | + +------+ + Encounter Details +--------+ + + + + | Date | Type | Department | Care Team | Description | +--------+ + + + + | 01/08/ | Telephone | Neurology at | Anthony De La O MD | | | 2015 | | [place] [facility] & | [address] | | | | | Healing [address] | [place], [place] | | | | | Ave Mailcode: CH8C | [address] | | | | | [facility] | [phone] | | | | | and Healing, | | | | | | | | | | | | Floor [place], [place] | | | | | | [address] | | | | | | [phone] | | | +--------+ + + + [...]
--- OUTSIDE RECORDS SUMMARY | ~2019-07-31 | XMS | Encounter Summary ---
Demographics + + + | Address | [address] | | | [place] [address] | + + + | Home Phone | | + + + | Preferred Language | Unknown | + + + | Marital Status | | + + + | Hinduism Affiliation | 1061 | + + + | Race | Unknown | + + + | Ethnic Group | Unknown | + + + Author + + + | Author | [facility] | | | and [place] | + + + | Organization | [facility] | | [...] [place] | | | | | [address] | | + + + + + | Christy Flaherty | ECON | [address] | | | | | [place] | | | | | [address] | | + + + + + Care Team Providers + +------+ + | Care Computational Mathematician Name | Role | Phone | + +------+ + | Juan Demarco MD | PCP | | + +------+ + Encounter Details +--------+ + + + + | Date | Type | Department | Care Team | Description | +--------+ + + + + | 05/06/ | Orders Only | [facility] | Conversion | | | 2016 | | INFECTIOUS DISEASE | Transaction, | | | | | [address] | Provider Unknown | | | | | [place], [place] | | | | | | [address] | (Fax) | | | | | [phone] | | | +--------+ + + + [...] + | ANTISTREPTOLYSIN O, | Routin | 05/06/2016 | | Results for this | | QUANT | e | 12:00 AM | | procedure are in the | | | | PST | | results section. | + +--------+ + + + documented in this encounter Results Antistreptolysin O, Quant (05/06/2016 12:00 AM PST) + + + + + + | Component | Value | Ref Range | Performed | Pathologist | | | | | At | Signature | + + + + + + | Anti | 301 (A)Comment: "ASO | 0 - 250 IU/ml | EXTERNAL | | | Streptolysi | QUANT" | | LAB | | | n O | | | | | + + [...]
--- OUTSIDE RECORDS SUMMARY | ~2019-07-31 | XMS | Encounter Summary ---
Demographics + + + | Address | [address] | | | [place] [address] | + + + | Home Phone | | + + + | Preferred Language | Unknown | + + + | Marital Status | | + + + | Yarsani Affiliation | ASG | + + + | Race | White | + + + | Ethnic Group | Not or | + + + Author + + + | Author | [facility] | + + + | Organization | [facility] | + + [...] [place] | | | | | [address] | | + + + + + Care Team Providers + +------+ + | Care Wind Turbine Controls Engineer Name | Role | Phone | [...] Additional | | 2016 | Encounter | [facility] & | | Medications | | | | Healing [address] | | | | | | [place] Mailcode: CH8C | | | | | | [facility] | | | | | | and Healing, | | | | | | Building | | | | | | Floor [place], [place] | | | | | | [address] | | | | | | [phone] | | | +--------+ + + + [...]
--- OUTSIDE RECORDS SUMMARY | ~2019-07-31 | XMS | Encounter Summary ---
Demographics + + + | Address | [address] | | | [place] [address] | + + + | Home Phone | | + + + | Preferred Language | Unknown | + + + | Marital Status | | + + + | Gnosticism Affiliation | 1061 | + + + | Race | Unknown | + + + | Ethnic Group | Unknown | + + + Author + + + | Author | [facility] | | | and [place] | + + + | Organization | [facility] | | [...] [place] | | | | | [address] | | + + + + + | Christy Flaherty | ECON | [address] | | | | [place] | | | | | [address] | | + + + + + Care Team Providers + +------+ + | Care Offset Label Rewinder Name | Role | Phone | + +------+ + PCP | Unavailable | + +------+ + Encounter Details +--------+ + + + + | Date | Type | Department | Care Team | Description | +--------+ + + + + | 05/29/ | Hospital | [facility] | | | | 2007 | Encounter | MED CTR XRAY [address] | | | | | | [place] | | | | | | [place] [address] | | | | | | [phone] | | | +--------+ + + + [...]
--- OUTSIDE RECORDS SUMMARY | ~2019-07-31 | XMS | Encounter Summary ---
Demographics + + + | Address | [address] | | | [place] [address] | + + + | Home Phone [...] [place] | | | | | [address] | | + + + + + Care Team Providers + +------+ + | Care Production Honing Machine Operator Name | Role | Phone | + +------+ + | Filippo Chen DO | PCP | | + +------+ + Reason for Visit + + + | Reason | Comments | + + + | Social work | | | consultation | | + + + Encounter Details +--------+ + + + + | Date | Type | Department | Care Team | Description | +--------+ + + + + | 12/08/ | Telephone | SOCIAL WORK | Cecelia Alcantar, | Social work | | 2016 | | AMBULATORY [address] | ASSISTED SALES REPRESENTATIVE [facility] [facility] | consultation | | | | [address] | [address] | | | | | Mailcode: CH6A | [place], [place] | | | | | [place] | [address] | | | | | [address] | [phone] | | | | | [phone] | | | +--------+ + + + [...]
--- OUTSIDE RECORDS SUMMARY | ~2019-07-31 | XMS | Encounter Summary ---
Demographics + + + | Address | [address] | | | [place] [address] | + + + | Home Phone [...] + + + | Author | [facility] | + + + | Organization | [facility] | + + + | Address | Unknown | + + + | Phone | Unavailable | + + + Support + + + + + | Name | Relationship | Address | Phone | + + + + + | Christy Flaherty | ECON | [address] | | | | | [place] | | | | | [address] | | + + + + + Care Team Providers + +------+ + | Care License Clerk Name | Role | Phone | [...] Recurrent | MD Taiwo | [facility] [address] | | | | | pancreatitis | [address] | [address] | | | | | Procedures | [facility] | Mailcode: | | | | | CT | Rd | [facility] | | | | | MULTIPHASE | [place], [place] | for Health | | | | | PANCREAS AND | [address] | and Healing, | | | | | [address] | Phone: | Building [address], | | | | | CONTRAST | [phone] | 3rd Floor | | | | | [address] | Fax: | [place], [place] | | | | | ABD&PELV 1+ | [phone] | [address] | | | | | SECTION/REGN | | Phone: | | | | | S | | [phone] | | | | | | | Fax: | | | | | | | [phone] | +--------+--------+ + + + + Reason [...] | | 2018 | | Center at [facility] [address] | [address] [facility] | teaching, guidance, | | | | [address] | [address] | and counseling | | | | Mailcode: Center | CENTER [place], [place] | | | | | [facility] and | [address] | | | | | [facility] 2 | [phone] | | | | | [place], [place] | | | | | | [address] | | | | | | [phone] | | | +--------+ + + + [...] | | LAB | | | | [place] [address] | | | | | | | [...]
--- OUTSIDE RECORDS SUMMARY | ~2019-07-31 | XMS | Encounter Summary ---
Demographics + + + | Address | [address] | | | [place] [address] | + + + | Home Phone [...] [place] | | | | | [address] | | + + + + + Care Team Providers + +------+ + | Care Filler Shredding Machine Loader Name | Role | Phone | + +------+ + | Filippo Chen DO | PCP | | + +------+ + Encounter Details +--------+ + + + + | Date | Type | Department | Care Team | Description | +--------+ + + + + | 04/26/ | Telephone | Digestive Health | Taiwo Tilley, | | | 2017 | | [place] at [facility] [address] | [address] | | | | | [address] | [address] | | | | | Mailcode: Center | [place], [place] | | | | | for Health and | [address] | | | | | [facility] 2 | [phone] | | | | | [place], [place] | | | | | | [address] | | | | | | [phone] | | | +--------+ + + + [...]
--- OUTSIDE RECORDS SUMMARY | ~2019-07-31 | XMS | Encounter Summary ---
Demographics + + + | Address | [address] | | | [place] [address] | + + + | Home Phone [...] [place] | | | | | [address] | | + + + + + Care Team Providers + +------+ + | Care Family Law Paralegal Name | Role | Phone | + +------+ + | Jarvis Willard MD | PCP | | + +------+ + Reason for Referral Other (Routine) + +--------+ + + + + | Status | Reason | Specialty | Diagnoses / | Referred By | Referred To | | | | | Procedures | Contact | Contact | + +--------+ + + + + | Pending | | Endocrinology | Diagnoses | Grey | Mark Diab Ed | | Review | | Diabetes & | Acute | Maryana Marley MD | [address] | | | | Metabolism | pancreatitis | [address] | [address] | | | | | , | [address] | Loop | | | | | unspecified | Rd | Mailcode: | | | | | complication | [place], [place] | [address] | | | | | status, | [address] | Physician's | | | | | unspecified | Phone: | [address] | | | | | pancreatitis | [phone] | [address] | | | | | type | Fax: | [place], [place] | | | | | Procedures | [phone] | [address] | | | | | CONSULT TO | | Phone: | | | | | ADULT | | [phone] | | | | | DIABETES - | | Fax: | | | | | EDUCATION | | [phone] | | | | | (DIABETES | | | | | | | SELF-MANAGEM | | | | | | | ENT) - [facility] | | | | | | | DC DIAB | | | | | | | MANAGE TRN | | | | | | | PER INDIV | | | | | | | DC DIAB | | | | | | | MANAGE TRN | | | | | | | (GROUP X 30 | | | | | | | MIN) | | | + +--------+ + + + + Encounter Details +--------+ + + + + | Date | Type | Department | Care Team | Description | +--------+ + + + + | 05/12/ | Load Tester | [facility] Escudero | Maryana Edmonds MD | Acute pancreatitis, | | 2020 | | Diabetes Health | [address] | unspecified | | | | [facility] | [facility] | complication status, | | | | [address] | [place], [place] | unspecified | | | | [address] | [address] | pancreatitis type | | | | Physician's Pavilion | [phone] | (Primary Dx) | | | | [address] [place], | | | | | | [place] [address] | | | | | | [phone] | | | +--------+ + + + [...]
--- OUTSIDE RECORDS SUMMARY | ~2019-07-31 | XMS | Encounter Summary ---
Demographics + + + | Address | [address] | | | [place] [address] | + + + | Home Phone | | + + + | Preferred Language | Unknown | + + + | Marital Status | | + + + | Worship Affiliation | ASG | + + + [...] [place] | | | | | [address] | | + + + + + Care Team Providers + +------+ + | Care Merchandising Director Name | Role | Phone | + +------+ + | Jarvis Willard MD | PCP | | + +------+ + Reason for Visit + + + | Reason | Comments | + + + | New patient | | | consultation | | + + + Consultation (Routine) +--------+--------+ + + + + | Status | Reason | Specialty | Diagnoses / | Referred By | Referred To | | | | | Procedures | Contact | Contact | +--------+--------+ + + + + | Closed | | Gastroenterol | Diagnoses | Liz, | Jarek, | | | | ogy | Epigastric | Sky Jiang MD | MD Taiwo | | | | | pain | [place] | [address] | | | | | Acquired | SURGICAL | [facility] | | | | | absence of | CLINIC [address] | [address] [facility], | | | | | other | [address] | [place] | | | | | specified | AVE | [address] | | | | | parts of | [place], | Phone: | | | | | digestive | [place] [address] | [phone] | | | | | tract | Phone: | Fax: | | | | | | [phone] | [phone] | | | | | | Fax: | | | | | | | [phone] | | +--------+--------+ + + + + Encounter Details +--------+---------+ + + + | Date | Type | Department | Care Team | Description | +--------+---------+ + + + | 02/08/ | Office | Digestive Health | Taiwo Tilley, | Idiopathic chronic | | 2019 | Visit | Center at [facility] [address] | [address] | pancreatitis (HCC) | | | | [address] | [address] | (Primary Dx) | | | | Mailcode: [place] | [place], [place] | | | | | [facility] and | [address] | | | | | [facility] 2 | [phone] | | | | | [place], [place] | | | | | | [address] | | | | | | [phone] | | | +--------+---------+ + + + [...] | Blood Pressure | 132/82 | 02/08/2019 3:30 PM | | | | | PST | | + + + + + | Pulse | 86 | 02/08/2019 3:30 PM | | | | | PST | | + + + + + | Temperature | 36.8 C (98.2 F) | 02/08/2019 3:30 PM | | | | | PST | | + + + + + | Respiratory Rate | - | - | | + + + + + | Oxygen Saturation | 94% | 02/08/2019 3:30 PM | | | | | PST | | + + + + + | Inhaled Oxygen | - | - | | | Concentration | | | | + + + + + | Weight | 107 kg (235 lb 12.8 | 02/08/2019 3:30 PM | | | | oz) | PST | | + + + + + | Height | 177.8 cm (5' 10") | 02/08/2019 3:30 PM | | | | | PST | | + + + + + | Body Mass Index | 33.83 | 02/08/2019 3:30 PM | | | | | PST | | + + + + + documented in this encounter Patient Instructions Patient Instructions Richard Rhodes - 02/08/2019 2:[address] Taiwo ndiaye's team It is our goal to provide you with seamless and prompt communication to serve all your medi say needs. This contact form lists the different ways to reach us, based on your different m edical needs. We will contact you with lab and test results either by telephone or [employer]. The fastest w ay to get a message to our staff is through [employer]. Please register and activate [employer] for access to your medical records, results, requests for refills and the ability to have non-urgent communication with our team. [email or web address] If you have questions or need assistance please call [facility] [phone]. To schedule or cancel an appointment, please call [facility] Phone Number Outpatient Clinics 8:00am 4:30 pm [phone] Tilley ordered imaging at [facility] please call to schedule an appointment [facility] Phone Number Radiology Scheduling 8:00 am 4:30 pm [phone] For routine clinical questions and medication refills during regular business hours (8:00 a m 4:30 pm) please call: RN Coordinator Esther Adam RN Silverware Washer Georgina Huerta CMA For URGENT issues during regular business hours please alert the phone staff that your call is urgent. For after-hours urgent issues, page the adult GI provider exceptional children's teacher at [phone]. For EMERGENCIES please go to the nearest Emergency Department If you do need to go to the Emergency Department, please request that the physicians call o r page us at the above numbers. We prefer to talk to you before you go but if you are there, we will guide your care so that unnecessary tests or procedures can be avoided. Please keep this contact sheet in a safe place, and let us know if you have feedback on how we can improve our services! Daysi Flaherty It was nice to see you in clinic today. As we discussed in clinic, your diagnosis is: idiopathic chronic pancreatitis. Our plan for you is: 1) Labs today 2) Abdominal CT scan 3) Begin taking Lyrica and antioxidant 4) Begin taking pancreatic enzymes: Take 3 tablets with each meal and 1 with snacks. Swall ow tablets whole unless otherwise instructed, do not crush or chew. Pancreatic enzymes shoul d always be taken with food. Take your first tablet after your first bite of food, and space them throughout your meal. Please feel free to call our clinic with any questions. [phone] documented in this encounter Progress Notes Taiwo Tilley MD - 02/08/2019 2:25 PM PSTFormatting of this note might be different fro m the original. [facility] Patient Name: Daysi Flaherty MR#: [id number] : 1965 HPI: Daysi Flaherty is a 53 y.o. male who is here for follow-up on abdominal pain and discus kelsey of TPIAT. He continues to have post prandial abdominal pain and diarrhea (steatorrehea). Patient ate prior to visit and states he is a "miserable wreck" . Previously, only certain foods caused problems, but anything, including water will cause onset of symptoms. 5-7 hours after eating , the pain resolves, but reoccurs with eating that begins as a pressure or tightness that pr ogressively worsens and causes nausea. He states the pain is a 7 or 8/10 after meals and flaquita etimes becomes a 9 or a 10/10, and has previously made him unable to work 3-4 days a month. 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 He describes his stools as watery diarrhea with oil droplets. He states he has lost 35 lbs since last visit. His weight was 246 lbs on 07/29/17. He is currently taking no medications for the pain or loose stools. He has previously taken zenpep, but has stopped taking pancreatic enzymes but doesn't remember why. He is willing t o begin retaking pancreatic enzymes. States he frequently hiked 7-8 years ago and noticed epigastric pain. He previously thought the pain was due to shortness of breath, but stated he realized it was GI pain later. He states he was hospitalized multiple times [...] curr ently not taking any seizure medications. GI problem list Chronic pancreatitis Etiology: Genetic testing (CFTR, PRSS1, SPINK1): Yes, negative Complications of pancreatic disease 1. Chronic pain (visual analog pain scale): Yes, baseline 2-3, postprandial 6-7 2. Weight loss: Yes, 35 lbs 3. Diabetes (insulin dependence?):No 4. Peripancreatic fluid collection:No 5. Gastric outlet obstruction:No 6. Narcotic dependency:No 7. Steatorrhea/diarrhea:Yes 8. Biliary obstruction: No 9. Ascites: No 10. Pancreatic duct stricture: No 11. Pancreatic duct stones: No ETOH use (prior and current): None Tobacco use (prior and current): Never smoker, chewed tobacco from age [age] Other Drug use (prior and current): Frequency of admissions or ED visits, including last: He states he was hospitalized multip le times for pancreatitis while taking Depakote, the first time in December of 2016. He state s he has been to the ER 3-4 times since then and would have gone 3-4 additional times, but s tates he did not go since "there was nothing they could do there for me" and rides out the p ain. He states his pain is a 10/10 during each of these episodes. Prior endoscopic evaluation and treatment i. EUS Yes, FNA ii. ERCP (# of treatments) No iii. ESWL No iv. Celiac block No Prior imaging v. Pancreas protocol CT Pending vi. Secretin enhanced MRI/MRCP No vii. Gastric Emptying No Medication trials: Pain regimen (chronic narcotic use?): None Pancreatic enzyme replacement and dose: No Anti-hyperglycemic regimen: No Prior History: About a year and half ago he noted episodic mild abdominal discomfort. About a year ago thi s became more frequent and severe episodes of epigastric pain radiating to the back. He also has had noted nausea, occasional vomiting and 30 lbs weight loss in the last one years. On one or two occasion he was noted to have mildly elevated lipase (<2 ULN). Had an abdominal U S which was suggestive of mass in the HOP, but two subsequent CT scans showed no obvious mas s, but stranding and inflammation around the pancreas. He also has sever constipation with rectal pain and bleeding. He had a colonoscopy 2 years ago. He has been on Linzess for 6 week with no resolution. He has Churchill 1 stools. He is non-smoker (ex-smoker) and [...] 2016 Sleep apnea SOB (shortness of breath) No past surgical history on file. Current Outpatient Medications on File Prior to Visit Medication Sig Dispense Refill acetaminophen 325 mg oral tablet Take 325 mg by mouth every four hours as needed (pain) . aspirin 325 mg oral tablet Take 325 mg by mouth once daily. bisacodyl 10 mg rectal suppository Unwrap and insert 1 suppository rectally once daily as needed. Indications: constipation [address] 500 mg oral tablet,delayed release (DR/EC) Take 2 tablets by mouth two ti mes daily. ERGOCALCIFEROL, VITAMIN D2, (VITAMIN D ORAL) Take 50,000 Units by mouth every seven day s. Takes every Wednesday folic acid 1 mg oral tablet Take 1 mg by mouth once daily. HYDROcodone-acetaminophen (NORCO) 5-325 mg oral tablet Take 1 tablet by mouth every six hours as needed for moderate pain or severe pain. Indications: Pain 15 tablet 0 lamoTRIgine 25 mg oral tablet 25 mg every other day for two weeks Indications: COMPLEX -PARTIAL EPILEPSY 120 tablet 5 methotrexate 2.5 mg oral tablet Take 10 mg by mouth every seven days. Takes every day Indications: PSORIATIC ARTHRITIS mometasone 0.1 % topical cream Apply 1 applicator to affected area once daily. Apply a thin film to ears daily (indication: psoriasis) polyethylene glycol (MIRALAX) 17 gram/dose oral powder Mix 17 g in liquid and drink two times daily. Indications: constipation 1700 g 1 senna-docusate 4.3-25 oral tablet Take 1 each by mouth once daily. No current facility-administered medications on file prior to visit. Allergies Allergen Reactions Piroxicam Rash Pt mentions he developed a rash while on this medication. Resolved immediately upon disco ntinue. Amitiza [Lubiprostone] Cough Meloxicam Diarrhea Bowel incontinence Hcojkrr-Uxj-Hvd Reductase Inhibitors Seizures Increased frequency of seizures, though pts mentions, pt had an infection during the time the pt was started on a statin and this may have been the cause also. Provider never t ried a statin again. Review of Systems Constitutional: Negative for chills, fever. He states he has lost 35 lbs since last visit. His weight was 246 lbs on 07/29/17. Respiratory: Negative for cough and wheezing. Cardiovascular: Negative for chest pain. Gastrointestinal: Negative for abdominal pain, diarrhea, and vomiting. Negative for blood i n stool, constipation, heartburn, melena and nausea. Neurological: Negative for weakness. All other systems reviewed and are negative. Labs: Lab Results Component Value Date TBILI 0.8 02/08/2019 TBILI 0.5 09/05/2015 AP 109 02/08/2019 AP 68 09/05/2015 TP 7.1 02/08/2019 TP 6.9 09/05/2015 ALB 3.8 02/08/2019 ALB 3.6 09/05/2015 AST 28 02/08/2019 AST 26 09/05/2015 ALT 47 02/08/2019 ALT 36 09/05/2015 Lab Results Component Value Date NA 141 02/08/2019 K 3.9 02/08/2019 CL 103 02/08/2019 BICARB 30 02/08/2019 BUN 14 02/08/2019 CR 0.91 02/08/2019 GLU 101 02/08/2019 CA 8.9 02/08/2019 Lab Results Component Value Date WBC 5.78 02/08/2019 RBC 5.57 02/08/2019 HB 16.6 02/08/2019 HCT 49.8 02/08/2019 MCV 89.4 02/08/2019 MCHC 33.3 02/08/2019 RDW 37.6 02/08/2019 PLT 200 02/08/2019 MPV 10.9 02/08/2019 NRBCPERC 0.0 02/08/2019 NRBCABS 0.00 02/08/2019 Component Latest Ref Rng & Units 02/08/2019 IRON 50 - 170 ug/dL 119 IRON BIND CAP SERUM 240 - 450 ug/dL 347 % SATURATION TRANSFERRIN, 20 - 50 % 34 HEMOGLOBIN A1C <5.7 % 5.2 ESTIMATED AVERAGE GLUCOSE mg/dL 103 LIPASE (LAB) 152 - 353 U/L 49 (L) AMYLASE,PLASMA 25 - 115 U/L 25 VITAMIN B12 193 - 986 pg/mL 310 VITAMIN D 25 HYDROXY 30 - 80 ng/mL 15.9 (L) FERRITIN 50 - 200 ng/mL 165 C-REACTIVE PROTEIN <10.0 mg/L 4.7 05/20/17 Pancreatic Elastase: 05/13/17 Serum Trypsin: 05/06/17 Chronic Pancreatitis Panel: 07/29/2017 CT MULTIPHASE PANCREAS AND PELVIS W IV CONTRAST IMPRESSION: Since 03/11/2017, improved peripancreatic inflammatory changes, with question of minimal re sidual stranding/fluid adjacent to the pancreatic head. Pancreatic parenchyma is homogeneous without focal lesion identified. A/P: Assessment: Daysi Flaherty is a 53 y.o. male who is seen for 1. Chronic idiopathic pancreatitis: Suspect recurrent acute pancreatitis evolving into chronometer repairer kori pancreatitis. EUS with FNA was consistent with of chronic pancreatitis. Work up for auto immune, hereditary pancreatitis have been negative. Valproate related pancreatitis remains a possibility. Chronic Pancreatitis: A) Pain: Postprandial 7-10/10 B) Exocrine insufficiency: Steatorrhea & weightloss C) Endocrine insufficiency: No- Hg A1C:5.6 D) Local complications: No Discussed the three arms of therapy of chronic pancreatitis including medical, endoscopic a nd surgical. We will optimize his medical care, however, previously there were no targets fo r endoscopic or drainage surgical procedure. We briefly discussed the role of TPIAT in manag ement of chronic pancreatitis. Plan: 1) Labs today 2) Pancreatic protocol abdominal CT scan 3) Begin taking Lyrica 75 mg/bid and antioxidant 4) Begin taking NEC pancreatic enzymes (Viokace): Take 3 tablets with each meal and 1 with snacks. 5) After completion of labs and imaging we will discuss his case in our multi-D chronic sanchez creatitis meeting. I am Richard Rhodes functioning as a scribe for Taiwo Tilley MD at 1:09 PM on 02/08/2019 I have reviewed and verified the above scribed note of my visit with this patient as record ed by Richard Rhodes. Taiwo Tilley MD [facility] 6TH FLOOR [address] Mailcode: [place] [address] [phone] signed by Taiwo Tilley MD at 02/08/2019 5:56 PM PSTdocumente d in this encounter Plan of Treatment Not on filedocumented as of this encounter Visit Diagnoses + + | Diagnosis | + + | Idiopathic chronic pancreatitis (HCC) - Primary | + + documented in this encounter
--- OUTSIDE RECORDS SUMMARY | ~2019-07-31 | XMS | Encounter Summary ---
Demographics + + + | Address | [address] | | | [place] [address] | + + + | Home Phone | | + + + | Preferred Language | Unknown | + + + | Marital Status | | + + + | Methodist Affiliation | ASG | + + + | Race | White | + + + | Ethnic Group | Not or | + + + Author + + + | Author | [facility] | + + + | Organization | [facility] | + + + | Address | Unknown | + + + | Phone | Unavailable | + + + Support + + + + + | Name | Relationship | Address | Phone | + + + + + | Christy Flaherty | ECON | [address] | | | | | [place] | | | | | [address] | | + + + + + Care Team Providers + +------+ + | Care Business Librarian Name | Role | Phone | + +------+ + | Filippo Chen DO | PCP | | + +------+ + Encounter Details +--------+ + + + + | Date | Type | Department | Care Team | Description | +--------+ + + + + | 12/17/ | Documentati | Neurology at | Amador Mayorga N, | | | 2016 | on | [facility] & | DOGGER [address] | | | | | Healing [address] | [address] | | | | | Ave Mailcode: [address] | [place], [place] | | | | | [facility] | [address] | | | | | and Healing, | [phone] | | | | | [facility] | | | | | | Floor [place], [place] | | | | | | [address] | | | | | | [phone] | | | +--------+ + + + [...]
--- OUTSIDE RECORDS SUMMARY | ~2019-07-31 | XMS | Encounter Summary ---
Demographics + + + | Address | [address] | | | [place] [address] | + + + | Home Phone | | + + + | Preferred Language | Unknown | + + + | Marital Status | | + + + | Sikh Affiliation | ASG | + + + | Race | White | + + + | Ethnic Group | Not or | + + + Author + + + | Author | [facility] | + + + | Organization | [facility] | + + + | Address | Unknown | + + + | Phone | Unavailable | + + + Support + + + + + | Name | Relationship | Address | Phone | + + + + + | Christy Flaherty | ECON | [address] | | | | | [place] | | | | | [address] | | + + + + + Care Team Providers + +------+ + | Care International Marketing Manager Name | Role | Phone | [...] 05/13/ | Abstract | Digestive Health | Ebcharlesconrad Taiwo, | Outside Records | | 2018 | | Center at [facility] [address] | [address] [facility] | Received (05/07/2017 | | | | [address] | [address] | Serum Trypsin | | | | Mailcode: Center | [place], [place] | Results- [employer]) | | | | for Health and | [address] | | | | | [facility] 2 | [phone] | | | | | [place], [place] | | | | | | [address] | | | | | | [phone] | | | +--------+ + + + [...]
--- OUTSIDE RECORDS SUMMARY | ~2019-07-31 | XMS | Encounter Summary ---
Demographics + + + | Address | [address] | | | [place] [address] | + + + | Home Phone [...] [place] | | | | | [address] | | + + + + + Care Team Providers + +------+ + | Care Exterior Designer Name | Role | Phone | + [...] | | | | | Procedures | [facility] | Mailcode: | | | | | CT | Rd | [facility] | | | | | MULTIPHASE | [place], [place] | for Health | | | | | PANCREAS AND | [address] | and Healing, | | | | | P[address]VIS [address] | Phone: | Building [address], | | | | | CONTRAST | [phone] | 3rd Floor | | | | | [address] | Fax: | [place], [place] | | | | | ABD&PELV 1+ | [phone] | [address] | | | | | SECTION/REGN | | Phone: | | | | | S | | [phone] | | | | | | | Fax: | | | | | | | [phone] | +--------+--------+ + + + + Reason [...] | | 2018 | | Center at [facility] [address] | [address] [facility] | teaching, guidance, | | | | [address] | [address] | and counseling | | | | Mailcode: Center | [place], [place] | | | | | [facility] and | [address] | | | | | [facility], [facility] 2 | [phone] | | | | | [place], [place] | | | | | | [address] | | | | | | [phone] | | | +--------+ + + + [...] | | LAB | | | | [place] [address] | | | | | | | [...]
--- OUTSIDE RECORDS SUMMARY | ~2019-07-31 | XMS | Encounter Summary ---
Demographics + + + | Address | [address] | | | [place] [address] | + + + | Home Phone [...] [place] | | | | | [address] | | + + + + + Care Team Providers + +------+ + | Care Practice Specialist Name | Role | Phone | [...] Test Results | | 2017 | | [place] at [facility] [address] | [address] | | | | | [address] | [address] | | | | | Mailcode: [place] | [place], [place] | | | | | for Health and | [address] | | | | | [facility] 2 | [phone] | | | | | [place], [place] | | | | | | [address] | | | | | | [phone] | | | +--------+ + + + [...]
--- OUTSIDE RECORDS SUMMARY | ~2019-07-31 | XMS | Encounter Summary ---
Demographics + + + | Address | [address] | | | [place] [address] | + + + | Home Phone [...] [place] | | | | | [address] | | + + + + + Care Team Providers + +------+ + | Care Child Welfare Worker Name | Role | Phone | + +------+ + | Jarvis Willard MD | PCP | | + +------+ + Encounter Details +--------+ + + + + | Date | Type | Department | Care Team | Description | +--------+ + + + + | 03/15/ | MyChart | Digestive Health | Taiwo Tilley, | RE: CT scan results | | 2019 | Encounter | Center at [facility] [address] | [address] | | | | | [address] | [address] | | | | | Mailcode: Center | [place], [place] | | | | | for Health and | [address] | | | | | Healing, Building 2 | [phone] | | | | | [place], [place] | | | | | | [address] | | | | | | [phone] | | | +--------+ + + + [...]
--- OUTSIDE RECORDS SUMMARY | ~2019-07-31 | XMS | Encounter Summary ---
Demographics + + + | Address | [address] | | | [place] [address] | + + + | Home Phone | | + + + | Preferred Language | Unknown | + + + | Marital Status | | + + + | Faith Affiliation | [phone] | + + + [...] [place] | | | | | [address] | | + + + + + | Christy Flaherty | ECON | [address] | | | | | [place] | | | | | [address] | | + + + + + Care Team Providers + +------+ + | Care Balance Bridge Assembler Name | Role | Phone | + +------+ + | Juan Demarco MD | PCP | | + +------+ + Encounter Details +--------+ + + + + | Date | Type | Department | Care Team | Description | +--------+ + + + + | 01/10/ | Hospital | [facility] | Conversion | | | 2015 | [facility] | [facility] | Transaction, | | | | | OUTPATIENT | Provider Unknown | | | | | PROCEDURES [address] | | [address] | (Fax) | | | | | [place], [place] | | | | | | [address] | | | | | | [phone] | | | +--------+ + + + [...]
--- OUTSIDE RECORDS SUMMARY | ~2019-07-31 | XMS | Encounter Summary ---
Demographics + + + | Address | [address] | | | [place] [address] | + + + | Home Phone | | + + + | Preferred Language | Unknown | + + + | Marital Status | | + + + | Caodaism Affiliation | ASG | + + + | Race | White | + + + | Ethnic Group | Not or | + + + Author + + + | Author | [facility] | + + + | Organization | [facility] | + + + | Address | Unknown | + + + | Phone | Unavailable | + + + Support + + + + + | Name | Relationship | Address | Phone | + + + + + | Christy Flaherty | ECON | [address] | | | | | [place] | | | | | [address] | | + + + + + Care Team Providers + +------+ + | Care Pad Cutter Name | Role | Phone | + +------+ + | Filippo Chen DO | PCP | | + +------+ + Reason for Referral Consultation (Routine) +--------+--------+ + + + + [...] | | | | symptomatic | [address] | [address] | | | | | epilepsy | Ave | Ave | | | | | with complex | [place] | [place] | | | | | partial | [address] | [address] | | | | | seizures, | Phone: | Phone: | | | | | intractable, | [phone] | [phone] | | | | | without | Fax: | Fax: | | | | | status | [phone] | [phone] | | | | | epilepticus | | | | | | | ([facility]) | | | | | | | Procedures | | | | | | | CONSULT TO | | | | | | | NEUROLOGY | | | +--------+--------+ + + + + Reason for Visit + + + | Reason | Comments | + + + | New patient | | | consultation | | + + + Consultation (Routine) +--------+ + + + + + | Status | Reason | Specialty | Diagnoses / | Referred By | Referred To | | | | | Procedures | Contact | Contact | +--------+ + + + + + | Closed | Specialty | Neurological | Diagnoses | Gustavo, | [place], | | | Services | Surgery | Hemangioma | Filippo Perez DO | MD Sylvia [address] | | | Required | | of | [address] | | | | | intracranial | [address] | [place], [place] | | | | | structures | [place], | [address] | | | | | INS: [place] | [place] [address] | Phone: | | | | | | Phone: | [phone] | | | | | | [phone] | Fax: | | | | | | Fax: | [phone] | | | | | | [phone] | | +--------+ + + + + + Encounter Details +--------+---------+ + + + | Date | Type | Department | Care Team | Description | +--------+---------+ + + + | 07/01/ | Office | Neurosurgery at | Sylvia Triana MD | Partial symptomatic | | 2016 | Visit | [facility] [address] | [address] | epilepsy with | | | | Ave Mailcode: CH8N | [facility] [place] | complex partial | | | | [facility] | [address] | seizures, | | | | and Healing, | [phone] | intractable, without | | | | Building [address] | | status epilepticus | | | | Floor [place], [place] | | ([facility]) (Primary Dx) | | | | [address] | | | | | | [phone] | | | +--------+---------+ + + + [...] + + + | Blood Pressure | 124/83 | 07/02/2015 1:16 PM | | | | | PDT | | + + + + + | Pulse | 67 | 07/02/2015 1:16 PM | | | | | PDT | | + + + + + | Temperature | - | - | | + + + + + | Respiratory Rate | 14 | 07/02/2015 1:16 PM | | | | | PDT | | + + + + + | Oxygen Saturation | - | - | | + + + + + | Inhaled Oxygen | - | - | | | Concentration | | | | + + + + + | Weight | 117.3 kg (258 lb | 07/02/2015 1:16 PM | | | | 11.2 oz) | PDT | | + + + + + | Height | 177.8 cm (5' 10") | 07/02/2015 1:16 PM | | | | | PDT | | + + + + + | Body Mass Index | 37.12 | 07/02/2015 1:16 PM | | | | | PDT | | + + + + + documented in this encounter Progress Notes Sylvia Triana MD - 07/02/2015 1:53 PM PDT History: Mr. Flaherty comes today with a history of epilepsy. He had partial complex seizures for "a l zuri time", which became secondarily generalized about 11 years ago. He has been on a number of medications, and currently is taking Divalproex EC 1000 mg BID. Although he still has au pamela, he has not had either a PCS, or generalized seizure for about a year. After his partia l seizures, he states he cannot speak well (initially mute) for several hours. He feels th at he cannot function on the medication, and is interested in anything that can be done abou t his condition. 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 He has never had seizure monitoring or EEG localization. Past Medical History Diagnosis Date SOB (shortness of breath) Sleep apnea Headache Epilepsy (HCC) Current outpatient prescriptions: divalproex DR 500 mg oral tablet,delayed release (DR/EC), Take 2 tablets by mouth two times daily., Disp: , Rfl: ERGOCALCIFEROL, VITAMIN D2, (VITAMIN D ORAL), Take 50,000 Units by mouth every seven days., Disp: , Rfl: HYDROcodone-acetaminophen 10-325 mg oral tablet, Take 1 tablet by mouth every four hours as needed., Disp: , Rfl: penicillin v potassium 500 mg oral tablet, Take 500 mg by mouth three times daily., Disp: , Rfl: No Known Allergies History reviewed. No pertinent past surgical history. History Social History Marital Status: Spouse Name: N/A Number of Children: N/A Years of Education: N/A Occupational History Not on file. Social History Main Topics Smoking status: Never Smoker Smokeless tobacco: Current User Types: Chew Alcohol Use: No Drug Use: No Sexual Activity: Not on file Other Topics Concern Not on file Social History Narrative No narrative on file Family History Problem Relation Diabetes Cancer Asthma Genetic Psychiatry Heart Attack Exam: Neurological Examination: Mental status: Normal consciousness, orientation, affect and fluency. Cranial nerves: II-XII intact on detailed examination. Motor: Normal strength, muscle bulk, and tone. Sensory: Intact to pinprick and light touch. Cerebellar: Normal xhhoeg-je-crlg, and rapid alternating movements. Gait: Normal. Tandem and Romberg negative. Deep tendon reflexes: Present and normoactive. Pathologic reflexes: Absent. 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 Assessment: Not strictly medically intractable, but is having auras, and is impaired by his medication. He wishes to be considered for epilepsy surgery. He will need to be worked up for his sei zures, and then presumably would be a candidate for an image-guided resection of his left te mporal cavernoma. Plan: 1. Consult to Epilepsy Center. documented in this enco unter Plan of Treatment Not on filedocumented as of this encounter Visit Diagnoses + + | Diagnosis | + + | Partial symptomatic epilepsy with complex partial seizures, intractable, without | | status epilepticus (HCC) - Primary | + + documented in this encounter
--- OUTSIDE RECORDS SUMMARY | ~2019-07-31 | XMS | Encounter Summary ---
Demographics + + + | Address | [address] | | | [place] [address] | + + + | Home Phone [...] [place] | | | | | [address] | | + + + + + Care Team Providers + +------+ + | Care Transition Social Worker Name | Role | Phone | [...] | Review | | | | Liberty Juan [address] | | | | | | [address] | | | | | | [place], | | | | | | 4th floor [place], | | | | | | [place] [address] | | | | | | [phone] | | | +--------+ + + + [...]
--- OUTSIDE RECORDS SUMMARY | ~2019-07-31 | XMS | Encounter Summary ---
Demographics + + + | Address | [address] | | | [place] [address] | + + + | Home Phone [...] [place] | | | | | [address] | | + + + + + Care Team Providers + +------+ + | Care Barn And Property Manager Name | Role | Phone | [...] | 2018 | Encounter | Center at [facility] [address] | [address] | | | | | [place] [address] | [address] | | | | | Mailcode: Center | [place], [place] | | | | | for Health and | [address] | | | | | [facility], Building 2 | [phone] | | | | | [place], [place] | | | | | | [address] | | | | | | [phone] | | | +--------+ + + + [...]
--- OUTSIDE RECORDS SUMMARY | ~2019-07-31 | XMS | Encounter Summary ---
Demographics + + + | Address | [address] | | | [place] [address] | + + + | Home Phone [...] [place] | | | | | [address] | | + + + + + Care Team Providers + +------+ + | Care Insulator Technician Name | Role | Phone | [...] | | | | | Procedures | [facility] | Mailcode: | | | | | CT | Rd | [facility] | | | | | MULTIPHASE | [place], [place] | for Health | | | | | PANCREAS AND | [address] | and Healing, | | | | | PELVIS [address] IV | Phone: | Building 1, | | | | | CONTRAST | [phone] | 3rd Floor | | | | | [place] | Fax: | [facility] [place] | | | | | ABD&PELV 1+ | [phone] | [address] | | | | | SECTION/REGN | | Phone: | | | | | S | | [phone] | | | | | | | Fax: | | | | | | | [phone] | +--------+--------+ + + + + Reason for Visit Diagnostic Testing (Routine) +--------+--------+ + + + + | Status | Reason | Specialty | Diagnoses / | Referred By | Referred To | | | | | Procedures | Contact | Contact | +--------+--------+ + + + + | Closed | | Radiology | Diagnoses | Jarek | Rad Ct Scan | | | | | Recurrent | MD Taiwo | [facility] [address] | | | | | pancreatitis | [address] | [address] | | | | | Procedures | [facility] | Mailcode: | | | | | CT | Rd | [facility] | | | | | MULTIPHASE | [place], [place] | for Health | | | | | PANCREAS AND | [address] | and Healing, | | | | | PELVIS [address] IV | Phone: | Building 1, | | | | | CONTRAST | [phone] | 3rd Floor | | | | | [place] | Fax: | [place], [place] | | | | | ABD&PELV 1+ | [phone] | [address] | | | | | SECTION/REGN | | Phone: | | | | | S | | [phone] | | | | | | | Fax: | | | | | | | [phone] | +--------+--------+ + + + + Encounter Details +--------+ + + + + | Date | Type | Department | Care Team | Description | +--------+ + + + + | 07/29/ | Hospital | Radiology/Imaging | Taiwo Tilley, | | | 2018 | Encounter | Lab at [facility] [address] | [address] | | | | | [address] Mailcode: | [address] | | | | | [facility] for | [place], [place] | | | | | Health and Healing, | [address] | | | | | Building 1, 3rd | [phone] | | | | | Floor [place], [place] | | | | | | [address] | | | | | | [phone] | | | +--------+ + + + [...]
--- OUTSIDE RECORDS SUMMARY | ~2019-07-31 | XMS | Encounter Summary ---
Demographics + + + | Address | [address] | | | [place] [address] | + + + | Home Phone | | + + + | Preferred Language | Unknown | + + + | Marital Status | | + + + | Muslim Affiliation | 1061 | + + + | Race | Unknown | + + + | Ethnic Group | Unknown | + + + Author + + + | Author | [facility] | | | and [place] | + + + | Organization | [facility] | | | [...] [place] | | | | | [address] | | + + + + + | Christy Flaherty | ECON | [address] | | | | | [place] | | | | | [address] | | + + + + + Care Team Providers + +------+ + | Care Agent Based Modeler Name | Role | Phone | + +------+ + | Juan Demarco MD | PCP | | + +------+ + Encounter Details +--------+ + + + + | Date | Type | Department | Care Team | Description | +--------+ + + + + | 09/12/ | Hospital | [facility] | [place] | Contusion of right | | 2014 | Encounter | [facility] XRAY | MD [address] | hand, subsequent | | | | [address] | [facility] | encounter; Place of | | | | [facility], [place] | [place] [address] | occurrence, | | | | [address] | [phone] | industrial places | | | | [phone] | | and premises | +--------+ + [...] injury recently COMPARISON: September 02, 2012. | [facility] [place] | | FINDINGS:3 views of the right [...] ST. | [address] | [place] | [phone] | | [facility] | | [address] | | | - IMAGING | | | | + + + + + documented in this encounter Visit Diagnoses + + | Diagnosis | + + | Contusion of right hand, subsequent encounter | + + | Place of occurrence, industrial places and premises | + + documented in this encounter"
--- OUTSIDE RECORDS SUMMARY | ~2019-07-31 | XMS | Encounter Summary ---
Demographics + + + | Address | [address] | | | [place] [address] | + + + | Home Phone | | + + + | Preferred Language | Unknown | + + + | Marital Status | | + + + | Samaritan Affiliation | ASG | + + + | Race | White | + + + | Ethnic Group | Not or | + + + Author + + + | Author | [facility] | + + + | Organization | [facility] | + + + | Address | Unknown | + + + | Phone | Unavailable | + + + Support + + + + + | Name | Relationship | Address | Phone | + + + + + | Christy Flaherty | ECON | [address] | | | | | [place] | | | | | [address] | | + + + + + Care Team Providers + +------+ + | Care Rn Resource Nurse Name | Role | Phone | + [...] Loop | | | | | | [place], | | | | | | 4th floor [place], | | | | | | [place] [address] | | | | | | [phone] | | | +--------+ + + + [...]
--- OUTSIDE RECORDS SUMMARY | ~2019-07-31 | XMS | Encounter Summary ---
Demographics + + + | Address | [address] | | | [place] [address] | + + + | Home Phone | | + + + | Preferred Language | Unknown | + + + | Marital Status | | + + + | Voodoo Affiliation | ASG | + + + [...] [place] | | | | | [address] | | + + + + + Care Team Providers + +------+ + | Care Seed Cleaning Manager Name | Role | Phone | [...] Closed | | Radiology | Diagnoses | [facility] | Rad Ct Scan | | | | | Idiopathic | [facility] [address] | [address] | | | | | chronic | [address] | [address] | | | | | pancreatitis | Mailcode: | [place] | | | | | ([facility]) Left | Center for | Hospital, | | | | | upper | Health and | 10th Floor | | | | | quadrant | Healing, | [place], [place] | | | | | pain | Building 2 | [address] | | | | | Procedures | [place], [place] | Phone: | | | | | CT ABDOMEN | [address] | [phone] | | | | | [address] | Phone: | Fax: | | | | | CONTRAST [place] | [phone] | [phone] | | | | | CT SCAN OF | Fax: | | | | | | ABDOMEN | [phone] | | | | | | COMBO | | | +--------+--------+ + + + + Diagnostic [...] 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 | [facility] [address] | | | | | chronic | [address] | [address] | | | | | pancreatitis | [facility] | Mailcode: | | | | | (HCC) | Rd | [facility] | | | | | Procedures | [place], [place] | for Health | | | | | [place] | [address] | and Healing, | | | | | MULTIPHASE | Phone: | Building 1, | | | | | PANCREAS AND | [phone] | 3rd Floor | | | | | PELVIS [address] IV | Fax: | [place], [place] | | | | | CONTRAST | [phone] | [address] | | | | | [place] | | Phone: | | | | | ABD&PELV 1+ | | [phone] | | | | | SECTION/REGN | | Fax: | | | | | S | | [phone] | +--------+--------+ + + + + Encounter Details +--------+ + + + + | Date | Type | Department | Care Team | Description | +--------+ + + + + | 02/07/ | Warehouse Specialist | Digestive Health | Duy Kat, | Idiopathic chronic | | 2019 | | Center at [facility] [address] | [address] | pancreatitis (HCC) | | | | [address] | [address] | (Primary Dx); Left | | | | Mailcode: Center | [place], [place] | upper quadrant pain | | | | for Health and | [address] | | | | | Healing, Building 2 | [phone] | | | | | [place], [place] | | | | | | [address] | | | | | | [phone] | | | +--------+ + + + [...]
--- OUTSIDE RECORDS SUMMARY | ~2019-07-31 | XMS | Encounter Summary ---
Demographics + + + | Address | [address] | | | [place] [address] | + + + | Home Phone | | + + + | Preferred Language | Unknown | + + + | Marital Status | | + + + | Religion Affiliation | ASG | + + + [...] [place] | | | | | [address] | | + + + + + Care Team Providers + +------+ + | Care Vp Product Marketing Name | Role | Phone | + [...] 2018 | | Center at [facility] [address] | [address] [facility] | Loly) | | | | [address] | [address] | | | | | Mailcode: Center | [place], [place] | | | | | for Health and | [address] | | | | | [place] [address] | [phone] | | | | | [place], [place] | | | | | | [address] | | | | | | [phone] | | | +--------+ + + + [...]
--- OUTSIDE RECORDS SUMMARY | ~2019-07-31 | XMS | Encounter Summary ---
Demographics + + + | Address | [address] | | | [place] [address] | + + + | Home Phone | | + + + | Preferred Language | Unknown | + + + | Marital Status | | + + + | Judaism Affiliation | ASG | + + + [...] [place] | | | | | [address] | | + + + + + Care Team Providers + +------+ + | Care Net Developer Consultant Name | Role | Phone | + +------+ + | Filippo Chen DO | PCP | | + +------+ + Encounter Details +--------+ + + + + | Date | Type | Department | Care Team | Description | +--------+ + + + + | 09/25/ | Telephone | Neurology at | Noe Arambula, | | | 2015 | | [facility] & | | | | | | Healing [address] | | | | | | Deborah Mailcode: [facility] | | | | | | [facility] | | | | | | and Healing, | | | | | | Building , | | | | | | Floor [place], [place] | | | | | | [address] | | | | | | [phone] | | | +--------+ + + + [...]
--- OUTSIDE RECORDS SUMMARY | ~2019-07-31 | XMS | Clinical Summary ---
Demographics + + + | Address | [address] | | | [place] [address] | + + + | Home Phone | | + + + | Preferred Language | Unknown | + + + | Marital Status | | + + + | Alevism Affiliation | 1061 | + + + | Race | Unknown | + + + | Ethnic Group | Unknown | + + + Author + + + | Author | [facility] (Historical as of | | | 11-12-18) | + + + | Organization | [facility] (Historical as of | | | 11-12-18) [...] [place] | | | | | [address] | | + + + + + Care Team Providers + +------+ + | Care Tawer Name | Role | Phone | + [...] | | | | (Season Ended) | 0 | | | + + + + [...] +------+-------+ + | MEDICAID | [place] | [id number] | | | [address] | | | N | | | | [place] | | | [place] | | | | [address] | | | BUSINESS DEVELOPMENT REPRESENTATIVE | | | | | + +--------+ [...] | Self [birth year] | Home: | [address] [place] [address] | | | al/Fam | | [phone] | [phone] | [place] | | | el[place]io | | | [address] | [address] | + +--------+ +--------+ + +
--- OUTSIDE RECORDS SUMMARY | ~2019-07-31 | XMS | Encounter Summary ---
Demographics + + + | Address | [address] | | | [place] [address] | + + + | Home Phone | | + + + | Preferred Language | Unknown | + + + | Marital Status | | + + + | Restoration Affiliation | ASG | + + + | Race | White | + + + | Ethnic Group | Not or | + + + Author + + + | Author | [facility] | + + + | Organization | [facility] | + + + | Address | Unknown | + + + | Phone | Unavailable | + + + Support + + + + + | Name | Relationship | Address | Phone | + + + + + | Christy Flaherty | ECON | [address] | | | | | [place] | | | | | [address] | | + + + + + Care Team Providers + +------+ + | Care Medical Claims Specialist Name | Role | Phone | + +------+ + | Jarvis Willard MD | PCP | | + +------+ + Reason for Referral Consultation (Routine) + +--------+ + + + + | Status | Reason | Specialty | Diagnoses / | Referred By | Referred To | | | | | Procedures | Contact | Contact | + +--------+ + + + + | Incomplete | | Neurology | Diagnoses | Shey | Vinod Juárez | | | | | 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 | [facility] [address] | | | | | chronic | [address] | [address] | | | | | pancreatitis | [address] | Mailcode: | | | | | (HCC) | Rd | [facility] | | | | | Localization | [place], [place] | for Health | | | | | -related | [address] | and Healing, | | | | | symptomatic | Phone: | Building 1, | | | | | epilepsy and | [phone] | 8th Floor | | | | | epileptic | Fax: | [place], [place] | | | | | syndromes | [phone] | [address] | | | | | with complex | | Phone: | | | | | partial | | [phone] | | | | | seizures, | | Fax: | | | | | intractable, | | [phone] | | | | | without | | | | | | | status | | | | | | | epilepticus | | | | | | | ([facility]) | | | | | | | Procedures | | | | | | | CONSULT TO | | | | | | | NEUROLOGY | | | + +--------+ + + + + Consultation (Routine) +--------+--------+ + + + + | Status | Reason | Specialty | Diagnoses / | Referred By | Referred To | | | | | Procedures | Contact | Contact | +--------+--------+ + + + + | Closed | | Nutrition | Diagnoses | Shey, | Harsha, | | | | | 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 | BAM Santiago | | | | | chronic | [address] | [address] | | | | | pancreatitis | [facility] | [facility] | | | | | (HCC) | Rd | Rd [facility], | | | | | Procedures | [place], [place] | [place] | | | | | CONSULT TO | [address] | [address] | | | | | ADULT | Phone: | | | | | | MEDICAL | [phone] | | | | | | NUTRITIONAL | Fax: | | | | | | THERAPY | [phone] | | +--------+--------+ + + + + Consultation (Routine) +--------+---------+ + + + + | Status | Reason | Specialty | Diagnoses / | Referred By | Referred To | | | | | Procedures | Contact | Contact | +--------+---------+ + + + + | Closed | Other | Pain | Diagnoses | Shey, | Trent, | | | | Management | 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 | Jarad Forrest, PhD | | | | | chronic | [address] | [address] | | | | | pancreatitis | [facility] | Ave | | | | | (HCC) | Rd | [place], [place] | | | | | Procedures | [place] | [address] | | | | | CONSULT TO | [address] | Phone: | | | | | COMPREHENSIV | Phone: | [phone] | | | | | E PAIN | [phone] | Fax: | | | | | CENTER - | Fax: | [phone] | | | | | PSYCH GROUP | [phone] | | +--------+---------+ + + + + Consultation (Routine) + +--------+ + + + + | Status | Reason | Specialty | Diagnoses / | Referred By | Referred To | | | | | Procedures | Contact | Contact | + +--------+ + + + + | Authorized | | Endocrinology | Diagnoses | [facility] | | | | Diabetes & | 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 | 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 Horn or | [place] | [address] | | | | | Dr. Edmonds | [address] | [address] | | | | | - Evaluate | Phone: | [place], [place] | | | | | for TPIAT | [phone] | [address] | | | | | candidacy. | Fax: | Phone: | | | | | Discussed | [phone] | [phone] | | | | | at chronic | | Fax: | | | | | pancreatitis | | [phone] | | | | | conference | [...] | | | | | | | Bloker RN | | | | | | | w/ any | | | | | | | questions | | | | | | | 858 | | | | | | | Procedures | | | | | | | CONSULT TO | | | | | | | DIABETES | | | | | | | CENTER | | | | | | | (ADULT) ID | | | | | | | NEW PATIENT | | | | | | | LEVEL V ID | | | | | | | EST PATIENT | | | | | | | LEVEL V | | | + +--------+ + + + + Consultation (Routine) + +---------+ + + + + | Status | Reason | Specialty | Diagnoses / | Referred By | Referred To | | | | | Procedures | Contact | Contact | + +---------+ + + + + | New Request | Other | Pain | Diagnoses | Kat, | Biology Specimen Technician [facility] | | | | Management | 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 | [address] | | | | | chronic | [address] | Ave | | | | | pancreatitis | [facility] | Mailcode: | | | | | ([facility]) | Rd | [facility] | | | | | Procedures | [place], [place] | for Health | | | | | CONSULT TO | [address] | and Healing, | | | | | PAIN | Phone: | Building | | | | | MANAGEMENT | [phone] | 1,15th Floor | | | | | | Fax: | [place], [place] | | | | | | [phone] | [address] | | | | | | | Phone: | | | | | | | [phone] | | | | | | | Fax: | | | | | | | [phone] | + +---------+ + + + + Encounter Details +--------+ + + + + | Date | Type | Department | Care Team | Description | +--------+ + + + + | 03/10/ | MyChart | Digestive Health | Duy Kat, | Next Appt. | | 2019 | Encounter | [facility] [address] | [address] | | | | | [address] | [facility] | | | | | Mailcode: [facility] | [place], [place] | | | | | [facility] and | [address] | | | | | [facility] 2 | [phone] | | | | | [place], [place] | | | | | | [address] | | | | | | [phone] | | | +--------+ + + + [...] (HCC) - Primary | + + | Localization-related symptomatic epilepsy and epileptic syndromes with complex partial | | seizures, intractable, without status epilepticus (HCC) Localization-related (focal) | | (partial) epilepsy and epileptic syndromes with complex partial seizures, with | | intractable epilepsy | + + documented in this encounter"
--- OUTSIDE RECORDS SUMMARY | ~2019-07-31 | XMS | Encounter Summary ---
Demographics + + + | Address | [address] | | | [place] [address] | + + + | Home Phone [...] [place] | | | | | [address] | | + + + + + Care Team Providers + +------+ + | Care Human Resources Psychologist Name | Role | Phone | + [...]
--- OUTSIDE RECORDS SUMMARY | ~2019-07-31 | XMS | Encounter Summary ---
Demographics + + + | Address | [address] | | | [place] [address] | + + + | Home Phone | | + + + | Preferred Language | Unknown | + + + | Marital Status | | + + + | Congregation Affiliation | ASG | + + + [...] [place] | | | | | [address] | | + + + + + Care Team Providers + +------+ + | Care Technical Specialist Name | Role | Phone | [...] | Surgery | Diagnoses | Jarek, | Shey | | | | | Idiopathic | MD Taiwo | MD Duy | | | | | chronic | [address] | [address] | | | | | pancreatitis | [facility] | [facility] | | | | | (HCC) | Rd | Rd [place], | | | | | Procedures | [place], [place] | [place] | | | | | [place] | [address] | [address] | | | | | SURGERY - | Phone: | Phone: | | | | | GENERAL | [phone] | [phone] | | | | | | Fax: | Fax: | | | | | | [phone] | [phone] | + +--------+ + + + + Diagnostic Testing (Routine) + +--------+ + + + + | Status | Reason | Specialty | Diagnoses / | Referred By | Referred To | | | | | Procedures | Contact | Contact | + +--------+ + + + + | Pending | | Radiology | Diagnoses | Jarek, | [facility] | | Review | | | Idiopathic | MD Taiwo | [address] | | | | | chronic | [address] | [address] | | | | | pancreatitis | [address] | Tyrell Mars | | | | | ([facility]) | Tyrell | Research | | | | | Procedures | [place], [place] | [place] | | | | | MR ABDOMEN W | [address] | [place], [place] | | | | | MRCP WITH | Phone: | [phone] | | | | | SECRETIN WWO | [phone] | Phone: | | | | | MT MRI, | Fax: | [phone] | | | | | ABDOMEN, | [phone] | Fax: | | | | | COMBO MT 3D | | [phone] | | | | | RNDR W/O | | | | | | | PSTPRCSS | | | + +--------+ + + + + Encounter Details +--------+ + + + + | Date | Type | Department | Care Team | Description | +--------+ + + + + | 10/28/ | Crystal Machining Coordinator | Digestive Health | Taiwo Tilley, | Idiopathic chronic | | 2019 | | Center at [facility] [address] | MD [address] [facility] | pancreatitis (HCC) | | | | [address] | [address] | (Primary Dx) | | | | Mailcode: Center | [place], [place] | | | | | for Health and | [address] | | | | | Healing, Building [address] | [phone] | | | | | [facility] [place] | | | | | | [address] | | | | | | [phone] | | | +--------+ + + + [...] | | + +---------+--------+ + + | MR ABDOMEN W MRCP | Imaging | Routin | Idiopathic chronic | Expected: | | WITH SECRETIN WWO | | e | pancreatitis (HCC) | 12/14/2018, Expires: | | | | | | 11/29/2019 | + +---------+--------+ + + documented as of this encounter Visit Diagnoses + + | Diagnosis | + + | Idiopathic chronic pancreatitis (HCC) - Primary | + + documented in this encounter"
--- OUTSIDE RECORDS SUMMARY | ~2019-07-31 | XMS | Encounter Summary ---
Demographics + + + | Address | [address] | | | [place] [address] | + + + | Home Phone [...] [place] | | | | | [address] | | + + + + + Care Team Providers + +------+ + | Care Die Designer Name | Role | Phone | [...] | | 2017 | | Center at [facility] [address] | MD Ania [address] [facility] | Received (02/24/2017 | | | | [address] | [address] | [place] [facility] [place] | | | | Mailcode: Center | [place], [place] | [facility]) | | | | for Health and | [address] | | | | | [place] [address] | [phone] | | | | | [place], [place] | | | | | | [address] | | | | | | [phone] | | | +--------+ + + + [...]
--- OUTSIDE RECORDS SUMMARY | ~2019-07-31 | XMS | Clinical Summary ---
Demographics + + + | Address | [address] | | | [place] [address] | + + + | Home Phone | | + + + | Preferred Language | Unknown | + + + | Marital Status | | + + + | Druze Affiliation | ASG | + + + | Race | White | + + + | Ethnic Group | Not or | + + + Author + + + | Author | [facility] | + + + | [...] [place] | | | | | [address] | | + + + + + Care Team Providers + +------+ + | Care Switchboard Operator Receptionist Name | Role | Phone | + +------+ + | Jarvis Willard MD | PCP | | + +------+ + Source Comments [facility] is fully live on both [facility] and [facility] InPatient.[facility]ly [facility] Allergies + + + + + + [...] + + + + + + | Exwjgze-Crq-Cnv | Seizures | | 12/17/19 | Increased [...] | + + + + + + Medications + + + +---------+------+------+-------+ | Medication | Sig | Dispensed | Refills | Star | End | Statu | | | | | | t | Date | s | | | | | | Date | | | + + + +---------+------+------+-------+ | divalproex DR 500 | Take 2 tablets by | | 0 | 02/0 | | Activ | | mg oral | mouth two times | | | 8/20 | | e | | tablet,delayed | daily. | | | 16 | | | | release (DR/EC) | | | | | | | + + + +---------+------+------+-------+ | ERGOCALCIFEROL, | Take 50,000 Units by | | 0 | | | Activ | | VITAMIN D2, (VITAMIN | mouth every seven | | | | | e | | D ORAL) | days. Takes every | | | | | | | | Wednesday | | | | | | + + + +---------+------+------+-------+ | methotrexate 2.5 | Take 10 mg by mouth | | 0 | | | Activ | | mg oral | every seven days. | | | | | e | | tabletIndications: | Takes every | | | | | | | psoriatic arthritis | Indications: | | | | | | | | PSORIATIC ARTHRITIS | | | | | | + + + +---------+------+------+-------+ | folic acid 1 mg | Take 1 mg by mouth | | 0 | | | Activ | | oral tablet | once daily. | | | | | e | + + + +---------+------+------+-------+ | mometasone 0.1 % | Apply 1 applicator | | 0 | | | Activ | | topical [...] mouth | | 0 | | | Activ | | mg oral tablet | every four hours as | | | | | e | | | needed (pain). | | | | | | + + + +---------+------+------+-------+ | lamoTRIgine 25 mg | 25 mg every other | 120 | 5 | 09/ | | Activ | | oral | day for two weeks | tablet | | 620 | | e | | tabletIndications: | Indications: | | | 16 | | | | complex-partial | COMPLEX-PARTIAL | | | | | | | epilepsy | EPILEPSY | | | | | | + + + +---------+------+------+-------+ | aspirin 325 mg | Take 325 mg by mouth | | 0 | | | Activ | | oral tablet | once daily. | | | | | e | + + + +---------+------+------+-------+ | polyethylene | Mix 17 g in liquid | 1700 g | 1 | 12/ | | Activ | | glycol (MIRALAX) [...] | | | | | | | pain [...] | | + + + +---------+------+------+-------+ | senna-docusate | Take 1 each by mouth | | 0 | | | Activ | | 4.3-25 oral tablet | once daily. | | | | | e | + + + +---------+------+------+-------+ | | Take 3 tablets by | 330 | 3 | 01/27 | | Activ | | dvlqkr-ypavfwdf-ount | mouth with meals and | tablet | | 06/15 | | e | | ase (VIOKACE) | 1 tablets by mouth | | | 19 | | | | 20,880-78,300- | with snacks. | | | | | | | 78,300 unit oral | | | | | | | | tablet | | | | | | | + + + +---------+------+------+-------+ | omeprazole 40 mg | Take 1 capsule by | 90 | 3 | 01/27 | | Activ | | oral capsule,delayed | mouth once daily. | capsule | | 06/15 | | e | | release(DR/EC) | Administer 30 to 60 | | | 19 | | | | | minutes before meals | | | | | | + + + +---------+------+------+-------+ | Vitamin A-Vitamin | Take 1 tablet by | | 0 | 01/27 | | Activ | | C-Vit E-Se | mouth once daily. | | | 320 | | e | | (ANTIOXIDANT | | | | 19 | | | | A/C/E/SELENIUM) oral | | | | | | | | capsule | | | | | | | + + + +---------+------+------+-------+ | pregabalin 75 mg | Take 1 capsule by | 60 | 1 | 11/1 | | Activ | | oral capsule | mouth two times | capsule | | 3/20 | | e | | | daily. Max: 600 | | | 19 | | | | | mg/day | | | | | | + + + +---------+------+------+-------+ | rosuvastatin 40 mg | Take 40 mg by mouth | | 0 | | | Activ | | oral tablet | once daily. | | | | | e | + + + +---------+------+------+-------+ Active Problems + + | Patient Care Coordination Note | + + | | | Seen by Dr. 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 | | with complex partial seizures, intractable, without status | | | epilepticus | | + + + | Cerebral cavernoma | 09/06/2015 | + + + | Psoriasis with arthropathy | 07/25/2015 | + + + | [...] | +--------+ + + + + | 07/02/ | Documentati | Endocrinology | Maryana Edmonds MD | Insurance | | 2020 | on | Diabetes & | | Authorization | | | | Metabolism | | | +--------+ + + + + | 05/12/ | Publisher Assistant | Endocrinology | Maryana Edmonds MD | Acute pancreatitis, | | 2020 | | Diabetes & | | unspecified | | | | Metabolism | | complication status, | | | | | | unspecified | | | | | | pancreatitis type | | | | | | (Primary Dx) | +--------+ + + + + | 05/11/ | Office | Endocrinology | Maryana Edmonds MD | Acute pancreatitis, | | 2019 | Visit | Diabetes & | | unspecified | | | | Metabolism | | complication status, | | | | | | unspecified | | | | | | pancreatitis type | | | | | | (Primary Dx) | +--------+ + + + + | 05/11/ | Travel | | | | | 2019 | | | | | +--------+ + + + + | 05/08/ | MyChart | Nutrition | Berta Mooney | [facility] | | 2020 | Encounter | | | Referral | +--------+ + + + + from Last 3 Months Family History + + +------+ + | Medical History | Relation | Name | Comments | + + +------+ + | Diabetes | Other | | | + + +------+ + | Cancer | Other | | | + + +------+ + | Asthma | Other | | | + + +------+ + | Genetic | Other | | | + + +------+ + | Psychiatry | Other | | | + + +------+ + | Heart Attack | Other | | | + + +------+ + + +------+---------+ + | Relation | Name | Status | Comments | + +------+---------+ + | Father | | Unknown | | + +------+---------+ + | Mother | | Unknown | | + +------+---------+ + | Other | | | | + +------+---------+ + | Other | | | | + +------+---------+ + | Other | | | | + +------+---------+ + | Other | | | | + +------+---------+ + | Other | | | | + +------+---------+ + | Other | | | | + +------+---------+ + Social History [...] recent travel history available. | + + Last Filed Vital Signs + [...] Rate | 18 | 07/29/2017 1:11 PM | | | | | PDT [...] | | + + + + + Plan of Treatment + + + + + | Health Maintenance | Due Date | Last Done | Comments | + + + + + | Pneumococcal | | 05/27/2018 | | | vaccination (2 of 3 | 9 | | | | - PPSV23) | | | | + + + + + | Influenza (Flu) | | | | | vaccination (#1) | 9 | | | + + + + + Results Not on filefrom Last 3 Months Insurance + +--------+ +--------+-------+---------+--------+ | Payer | Benefi | Subscriber | Effect | Phone | Address | Type | | | t Plan | ID | aubrey | | | | | | / | | Dates | | | | | | Group | | | | | | + +--------+ +--------+-------+---------+--------+ | SPLUNK DASHBOARD DEVELOPER MEDICAID | SPLUNK DASHBOARD DEVELOPER | xxxxxxxx | 08/03/19 | | | Medica | | | [place] | | 18-Pre | | | id | | | [place] | | sent | | | | + +--------+ +--------+-------+---------+--------+ + +--------+ +--------+ + + | Guarantor Name | Accoun | Relation to | Date | Phone | Billing Address | | | t Type | Patient | of | | | | | | | | | | + +--------+ +--------+ + + | Daysi Flaherty | Person | Self | [birth year] | [address] | | | al/Fam | | 1966 | [phone] | [place] [address] | | | eladio | | | 2 (Home) | | + +--------+ +--------+ + + Advance Directives + + + + + | Code Status | Date | Date | Comments | | | Activated | Inactivated | | + + + + + | Full Code | 04/09/2017 | 04/10/2017 | | | | 5:04 PM | 7:18 PM | | + + + + + + + + +---+ | | | | | + + + +---+ | Full Code | 12/17/2015 | 12/23/2015 | | | | 7:54 AM | 5:20 PM | | + + + +---+
--- OUTSIDE RECORDS SUMMARY | ~2019-07-31 | XMS | Encounter Summary ---
Demographics + + + | Address | [address] | | | [place] [address] | + + + | Home Phone | | + + + | Preferred Language | Unknown | + + + | Marital Status | | + + + | Hinduism Affiliation | ASG | + + + [...] [place] | | | | | [address] | | + + + + + Care Team Providers + +------+ + | Care Senior Electronics Technician Name | Role | Phone | + +------+ + | Jarvis Willard MD | PCP | | + +------+ + Encounter Details +--------+ + + + + | Date | Type | Department | Care Team | Description | +--------+ + + + + | 02/07/ | Procedure | Diagnostic Imaging | | | | 2019 | Pass | Services at [facility] | | | | | | [address] | | | | | | Jayshree BRIONES | | | | | | [address] | | | | | | [place], [place] | | | | | | [address] | | | | | | [phone] | | | +--------+ + + + [...]
--- OUTSIDE RECORDS SUMMARY | ~2019-07-31 | XMS | Encounter Summary ---
Demographics + + + | Address | [address] | | | [place] [address] | + + + | Home Phone [...] [place] | | | | | [address] | | + + + + + Care Team Providers + +------+ + | Care Garment Turner Name | Role | Phone | [...] | | | | | status, | [address] | Physician's | | | | | unspecified | Phone: | [address] | | | | | pancreatitis | [phone] | [address] | | | | | type | Fax: | [place], [place] | | | | | Procedures | [phone] | [address] | | | | | CONSULT TO | | Phone: | | | | | ADULT | | [phone] | | | | | DIABETES - | | Fax: | | | | | EDUCATION | | [phone] | | | | | (DIABETES | | | | | | | SELF-MANAGEM | | | | | | | ENT) - [facility] | | | | | | | NM DIAB | | | | | | | MANAGE TRN | | | | | | | PER INDIV | | | | | | | NM DIAB | | | | | | [...] + + + + | 05/12/ | Wrister | Mukund Escudero | Maryana Edmonds MD | Acute pancreatitis, | | 2020 | | [facility] | [address] | unspecified | | | | Center [facility] | [facility] | complication status, | | | | [address] | [place], [place] | unspecified | | | | [address] | [address] | pancreatitis type | | | | [facility] | [phone] | (Primary Dx) | | | | [address] [place], | | | | | | [place] [address] | | | | | | [phone] | | | +--------+ + + + [...]
--- OUTSIDE RECORDS SUMMARY | ~2019-07-31 | XMS | Encounter Summary ---
Demographics + + + | Address | [address] | | | [place] [address] | + + + | Home Phone | | + + + | Preferred Language | Unknown | + + + | Marital Status | | + + + | Jehovah'S Witness Affiliation | ASG | + + + [...] [place] | | | | | [address] | | + + + + + Care Team Providers + +------+ + | Care Dermatologist And Dermatopathologist Name | Role | Phone | + +------+ + | Filippo Chen DO | PCP | | + +------+ + Encounter Details +--------+ + + + + | Date | Type | Department | Care Team | Description | +--------+ + + + + | 12/16/ | Documentati | Neurology at | Amador Mayorga N, | | | 2016 | on | [facility] & | SED SPECIAL EDUCATION TEACHER [address] | | | | | Healing [address] | [address] | | | | | Ave Mailcode: CH8C | [place], [place] | | | | | [facility] | [address] | | | | | and Healing, | [phone] | | | | | [facility] | | | | | | Floor [place], [place] | | | | | | [address] | | | | | | [phone] | | | +--------+ + + + [...]
--- OUTSIDE RECORDS SUMMARY | ~2019-07-31 | XMS | Encounter Summary ---
Demographics + + + | Address | [address] | | | [place] [address] | + + + | Home Phone [...] [place] | | | | | [address] | | + + + + + Care Team Providers + +------+ + | Care Piecer Up Name | Role | Phone | + [...] 2016 | | AMBULATORY [address] | ANIMATION DIRECTOR [address] [facility] | consultation | | | | [address] | [address] | | | | | Mailcode: CH6A | [place], [place] | | | | | [place], [place] | [address] | | | | | [address] | [phone] | | | | | [phone] | | | +--------+ + + + [...]
--- OUTSIDE RECORDS SUMMARY | ~2019-07-31 | XMS | Encounter Summary ---
Demographics + + + | Address | [address] | | | [place] [address] | + + + | Home Phone | | + + + | Preferred Language | Unknown | + + + | Marital Status | | + + + | Caodaism Affiliation | 1061 | + + + | Race | Unknown | + + + | Ethnic Group | Unknown | + + + Author + + + | Author | [facility] | | | and [place] | + + + | Organization | [facility] | | [...] [address] | | | | | [place] | | | | | [address] | | + + + + + | Christy Grande | ECON | [address] | | | | | [place] | | | | | [address] | | + + + + + Care Team Providers + +------+ + | Care Branch Associate Teller Name | Role | Phone | + +------+ + | Juan Demarco MD | PCP | | + +------+ + Encounter Details +--------+ + + + + | Date | Type | Department | Care Team | Description | +--------+ + + + + | 07/20/ | Orders Only | [facility] | Jb Mendiola, | | | 2017 | | CARDIOLOGY FELIBERTO | [address] | | | | | ECHO [address] | [place] [address] | | | | | [place] | [phone] | | | | | [address] | | | | | | [phone] | | | +--------+ + + + [...] TR | | | Vmax: 1.71 m/s Per Diem Rn: MIKI Authenticated by: Jb | | | Maury WASHINGTON, FACC, FACP, FASNC Report Date/Time: -- | | | [id number] | | + + + + + | Procedure Note | + + | Kj, Rad Conversion - 11/17/2018 7:26 PM PDT Patient Name: Jen GRANDE of | | : 1965 Performing Physician: Jb Mendiola MD, [facility], | | FACP, | | FASNC INDICATIONS--------- [...] (A-L): 22.13 ml/m2LAAs A2C: 17.71 | | [id number] A-L A2C: 56.35 mlLALs A2C: 4.72 cmLAAs A4C: 16.00 [id number] A-L A4C: | | 41.00 mlLALs A4C: 5.30 cmRAAs: 13.94 mk4ZFSVR A-L: 30.97 mlRAESV MOD: 29.42 | | mlRALs: 5.33 cmAo Diam: 3.51 cmAV maxP.26 mmHgAV meanP.19 mmHgAV Vmax: | | 1.75 m/Stormy Vmean: 1.28 m/Stormy VTI: 37.85 cmAVA Vmax: 1.87 cm2AVA (VTI): 1.75 | | ro5TXSA maxP.69 mmHgLVOT meanP.52 mmHgLVSI Dopp: 28.89 ml/m2LVSV Dopp: | | 66.46 mlLVOT Vmax: 0.82 m/sLVOT Vmean: 0.59 m/sLVOT VTI: 16.62 cmSeptal e': 0.06 | | m/sLateral e': 0.11 m/sPV maxP.22 mmHgPV Vmax: 1.14 m/sTR maxP.80 | | mmHgTR Vmax: 1.71 m/s Per Diem Rn: MIKIAuthenticated by: Jb Mendiola MD, FACC, FACP, | | FASNCReport Date/Time: -- [id number] IMPRESSION: 1. This was a technically | [...] |TR Vmax: 1.71 m/s | | | |Per Diem Rn: RK | |Authenticated by: Jb Mendiola MD, FACC, FACP, [facility] | |Report Date/Time: -- [id number] | | | |IMPRESSION: | |1. This [...]
--- OUTSIDE RECORDS SUMMARY | ~2019-07-31 | XMS | Encounter Summary ---
Demographics + + + | Address | [address] | | | [place] [address] | + + + | Home Phone | | + + + | Preferred Language | Unknown | + + + | Marital Status | | + + + | Yarsanism Affiliation | 1061 | + + + | Race | Unknown | + + + | Ethnic Group | Unknown | + + + Author + + + | Author | [facility] | | | and [place] | + + + | Organization | [facility] | | [...] [place] | | | | | [address] | | + + + + + | Christy Flaherty | ECON | [address] | | | | | [place] | | | | | [address] | | + + + + + Care Team Providers + +------+ + | Care Fiction And Nonfiction Writer Prose Name | Role | Phone | + +------+ + | Juan Demarco MD | PCP | | + +------+ + Encounter Details +--------+ + + + + | Date | Type | Department | Care Team | Description | +--------+ + + + + | 01/10/ | Hospital | [facility] | Conversion | | | 2015 | [facility] | [facility] | Transaction, | | | | | OUTPATIENT | Provider Unknown | | | | | PROCEDURES [address] | | | | [address] | (Fax) | | | | | [place], [place] | | | | | | [address] | | | | | | [phone] | | | +--------+ + + + [...]
--- OUTSIDE RECORDS SUMMARY | ~2019-07-31 | XMS | Encounter Summary ---
Demographics + + + | Address | [address] | | | [place] [address] | + + + | Home Phone [...] [place] | | | | | [address] | | + + + + + Care Team Providers + +------+ + | Care New Car Make Ready Mechanic Name | Role | Phone | [...] | +--------+ + + + + | 10/24/ | Abstract | Digestive Health | Taiwo Tilley, | Medical Records | | 2019 | | [place] at [facility] [address] | [address] | Review | | | | [address] | [address] | | | | | Mailcode: Center | [place], [place] | | | | | for Health and | [address] | | | | | [facility] 2 | [phone] | | | | | [place], [place] | | | | | | [address] | | | | | | [phone] | | | +--------+ + + + [...]
--- OUTSIDE RECORDS SUMMARY | ~2019-07-31 | XMS | Encounter Summary ---
Demographics + + + | Address | [address] | | | [place] [address] | + + + | Home Phone | | + + + | Preferred Language | Unknown | + + + | Marital Status | | + + + | Lutheran Affiliation | ASG | + + + [...] [place] | | | | | [address] | | + + + + + Care Team Providers + +------+ + | Care Back Tufter Name | Role | Phone | + [...] To Surgery | | 2017 | | [place] [facility] [address] | | - General | | | | [address] | | | | | | Mailcode: [place] | | | | | | for Health and | | | | | | [facility], [facility] [address] | | | | | | [place], [place] | | | | | | [address] | | | | | | [phone] | | | +--------+ + + + [...]
--- OUTSIDE RECORDS SUMMARY | ~2019-07-31 | XMS | Encounter Summary ---
Demographics + + + | Address | [address] | | | [place] [address] | + + + | Home Phone | | + + + | Preferred Language | Unknown | + + + | Marital Status | | + + + | Hindu Affiliation | 1061 | + + + | Race | Unknown | + + + | Ethnic Group | Unknown | + + + Author + + + | Author | [facility] | | | and [place] | + + + | Organization | [facility] | | | [...] [place] | | | | | [address] | | + + + + + | Christy Grande | ECON | [address] | | | | | [place] | | | | | [address] | | + + + + + Care Team Providers + +------+ + | Care Ethernet Network Architect Name | Role | Phone | [...] | | | | [address] | [place] [address] | | | | | [place], [place] | [phone] | | | | | [address] | | | | | | [phone] | | | +--------+ + + + [...] TR maxP.42 mmHg TR Vmax: 2.14 m/s Woods Superintendent: | | | DH Authenticated by: Jb Mendiola MD, FACC, FACP, FASNC Report | | | Date/Time: -- | | + + + + + | Procedure Note | + + | Kj Rad Conversion - 11/18/2018 11:06 AM PDT Patient Name: Jen GRANDE of | | : 1965 Performing Physician: Jb Mendiola MD, [facility], | | FACP, | | FASNC [...] cmLVIDd: 4.72 cmLVPWd: 0.95 cmLVOT Area: 3.61 uu7IPQC Diam: 2.14 cm%FS: | | 34.35 %EF(Teich): [...] (A-L): 19.71 | | ml/m2LAAs A2C: 16.72 gm3CBRUF A-L A2C: 48.44 mlLALs A2C: 4.90 cmLAAs A4C: 15.56 | | bz4YMWZM A-L A4C: 42.18 mlLALs A4C: 4.87 cmRAAs: 13.91 ul9YJOTO A-L: 36.69 | | mlRAESV MOD: 36.63 mlRALs: 4.47 cmAo Diam: 3.87 cmLA Diam: 4.22 cmLA/Ao: | | 1.08AV maxP.50 mmHgAV meanP.02 mmHgAV Vmax: 1.96 m/Stormy Vmean: 1.40 | | m/Stormy VTI: 37.37 cmAVA Vmax: 1.63 cm2AVA (VTI): 1.93 jp7GXHU (Vmax): 0.00 | | cm2/m2AVAI (VTI): 0.00 cm2/m2LVOT maxP.19 mmHgLVOT meanP.89 mmHgLVSI Dopp: | | 31.44 ml/m2LVSV Dopp: 72.32 mlLVOT Vmax: 0.89 m/sLVOT Vmean: 0.64 m/sLVOT VTI: | | 20.03 cmMV A George: 0.47 m/sMV DecT: 222.02 msMV E George: 0.56 m/sMV E/A Ratio: | | 1.19MV PHT: 64.38 msMVA By PHT: 3.41 [id number] e': 0.07 m/sSeptal E/e': | | 7.38Lateral e': 0.10 m/sLateral E/e': 5.45RAP: 5 mmHgRVSP: 23.42 mmHgTR maxPG: | | 18.42 mmHgTR Vmax: 2.14 m/s Woods Superintendent: DHAuthenticated by: Jb Mendiola MD, FACC, | [...] |TR Vmax: 2.14 m/s | | | |Woods Superintendent: | |Authenticated by: Jb Mendiola MD, FACC, [...]
--- OUTSIDE RECORDS SUMMARY | ~2019-07-31 | XMS | Encounter Summary ---
Demographics + + + | Address | [address] | | | [place] [address] | + + + | Home Phone | | + + + | Preferred Language | Unknown | + + + | Marital Status | | + + + | Samaritan Affiliation | 1061 | + + + | Race | Unknown | + + + | Ethnic Group | Unknown | + + + Author + + + | Author | [facility] | | | and [place] | + + + | Organization | [facility] | | [...] [place] | | | | | [address] | | + + + + + | Christy Flaherty | ECON | [address] | | | | | [place] | | | | | [address] | | + + + + + Care Team Providers + +------+ + | Care Can Cutter Name | Role | Phone | + +------+ + | Juan Demarco MD | PCP | | + +------+ + Encounter Details +--------+ + + + + | Date | Type | Department | Care Team | Description | +--------+ + + + + | 01/07/ | Orders Only | [facility] | Conversion | | | 2014 | | INFECTIOUS DISEASE | Transaction, | | | | | [address] | Provider Unknown | | | | | [place], [place] | | | | | | [address] | (Fax) | | | | | [phone] | | | +--------+ + + + [...] | EXTERNAL LAB: CBC | Routin | 01/07/2015 | | Results for this | | | e | 12:00 AM | | procedure are in the | | | | PDT | | results section. | + +--------+ + + + | ANTISTREPTOLYSIN O, | Routin | 01/07/2015 | | Results for this | | QUANT | e | 12:00 AM | | procedure are in the | | | | PDT | | results section. | + +--------+ + + + | C-REACTIVE PROTEIN | Routin | 01/07/2015 | | Results for this | | | e | 12:00 AM | | procedure are in the | | | | PDT | | results section. | + +--------+ + + + | COMPREHENSIVE | Routin | 01/07/2015 | | Results for this | | METABOLIC PANEL | e | 12:00 AM | | procedure are in the | | | | PDT | | results section. | + +--------+ + + + documented in this encounter Results Antistreptolysin O, Quant (01/07/2015 12:00 AM PDT) + +---------+ + + + | Component | Value | Ref Range | Performed | Pathologist | | | | | At | Signature | + +---------+ + + + | Anti | 372 (A) | 0 - 250 | EXTERNAL [...] + +---------+ + + External Lab: CBC (01/07/2015 12:00 AM PDT) + +---------+ + + + | Component | Value | Ref Range | Performed | Pathologist | | | | | At | Signature | + +---------+ + + + | WBC | 4.8 | 10 | EXTERNAL | | | | | | LAB | | + +---------+ + + + | Red Blood | 5.13 | 10 | EXTERNAL | | | Cells | | | LAB | | | Counted | | | | | + +---------+ + + + | Hemoglobin | 15.5 | g/dL | EXTERNAL | | | | | | LAB | | + +---------+ + + + | Hematocrit, | 47.2 | % | EXTERNAL | | | POC | | | LAB | | + +---------+ + + + | MCV | 92.1 | fL | EXTERNAL | | | | | | LAB | | + +---------+ + + + | MCH | 30 | pg | EXTERNAL | | | | | | LAB | | + +---------+ + + + | MCHC | 33 | g/dL | EXTERNAL | | | | | | LAB | | + +---------+ + + + | Platelet | 137 (A) | 140 - 440 K/ L | EXTERNAL | | | Count | | | LAB | | | Plasma | | | | | + +---------+ + + + | RDW-CV | 12.8 | % | EXTERNAL | | | | | | LAB | | + +---------+ + + + | MPV | | fL | EXTERNAL | | | | | | LAB | | + +---------+ + + + | Differentia | | | EXTERNAL | | | l Type | | | LAB | | + +---------+ + + + | % Segmented | 43.2 | % | EXTERNAL | | | | | | LAB | | | Neutrophils | | | | | + +---------+ + + + | % | 43.1 | % | EXTERNAL | | | Lymphocytes | | | LAB | | + +---------+ + + + | % Monocytes | 8.4 | % | EXTERNAL | | | | | | LAB | | + +---------+ + + + | % | 3.6 | % | EXTERNAL | | | Eosinophils | | | LAB | | + +---------+ + + + | % Basophils | 1.7 | % | EXTERNAL | | | | | | LAB | | + +---------+ + + + | Absolute | | / L | EXTERNAL | | | Segmented | | | LAB | | | Neutrophils | | | | | + +---------+ + + + | Absolute | | / L | EXTERNAL | | | Lymphocytes | | | LAB | | + +---------+ + + + | Absolute | | / L | EXTERNAL | | | Monocytes | | | LAB | | + +---------+ + + + | Absolute | | / L | EXTERNAL | | | Eosinophils | | | LAB | | + +---------+ + + + | Absolute | | [...] | + +---------+ + + C-Reactive Protein (01/07/2015 12:00 AM PDT) + + + + + + | Component | Value | Ref Range | Performed | Pathologist | | | | | At | Signature | + + + + + + | CRP | Comment: result <5 | 0 - 5 mg/L | [...] + +---------+ + + Comprehensive Metabolic Panel (01/07/2015 12:00 AM PDT) + +---------+ + + + | Component | Value | Ref Range | Performed | Pathologist | | | | | At | Signature | + +---------+ + + + | Glucose, | 102 (A) | 70 - 100 mg/dL | EXTERNAL | | | Fasting | | | LAB | | + +---------+ + + + | BUN | 20 | mg/dL | EXTERNAL | | | | | | LAB | | + +---------+ + + + | Creatinine | 0.90 | mg/dL | EXTERNAL | | | | | | LAB | | + +---------+ + + + | BUN/Creatin | 22.2 | | EXTERNAL | | | ine Ratio | | | LAB | | + +---------+ + + + | Calcium | 8.7 | mg/dL | EXTERNAL | | | | | | LAB | | + +---------+ + + + | Protein, | 6.1 | g/dL | EXTERNAL | | | Total | | | LAB | | + +---------+ + + + | Albumin | 3.8 | | EXTERNAL | | | | | | LAB | | + +---------+ + + + | Globulin | 2.3 | | EXTERNAL | | | | | | LAB | | + +---------+ + + + | A/G Ratio | 1.7 | | EXTERNAL | | | | | | LAB | | + +---------+ + + + | Bilirubin | 0.3 | mg/dL | EXTERNAL | | | Total | | | LAB | | + +---------+ + + + | ALP, | 62 | | EXTERNAL | | | External | | | LAB | | + +---------+ + + + | ALT | 20 | U/L | EXTERNAL | | | | | | LAB | | + +---------+ + + + | AST | 19 | U/L | EXTERNAL | | | | | | LAB | | + +---------+ + + + | Na | 138 | mmol/L | EXTERNAL | | | | | | LAB | | + +---------+ + + + | K | 4.4 | mmol/L | EXTERNAL | | | | | | LAB | | + +---------+ + + + | Cl | 104 | mmol/L | EXTERNAL | | | | | | LAB | | + +---------+ + + + | CO2 | 28 | mmol/L | EXTERNAL | | | | | | LAB | | + +---------+ + + + | Anion Gap | 10.4 | mmol/L | EXTERNAL | | | | | | LAB | | + +---------+ + + + | Estimated | 89 | mg/dL | EXTERNAL | | | [...]
--- OUTSIDE RECORDS SUMMARY | ~2019-07-31 | XMS | Encounter Summary ---
Demographics + + + | Address | [address] | | | [place] [address] | + + + | Home Phone | | + + + | Preferred Language | Unknown | + + + | Marital Status | | + + + | Sikh Affiliation | 1061 | + + + | Race | Unknown | + + + | Ethnic Group | Unknown | + + + Author + + + | Author | [facility] | | | and [place] | + + + | Organization | [facility] | | | [...] [place] | | | | | [address] | | + + + + + | Christy Flaherty | ECON | [address] | | | | | [place] | | | | | [address] | | + + + + + Care Team Providers + +------+ + | Care Hvac Tech Name | Role | Phone | + +------+ + | Juan Demarco MD | PCP | | + +------+ + Encounter Details +--------+ + + + + | Date | Type | Department | Care Team | Description | +--------+ + + + + | 11/07/ | Hospital | [facility] | Conversion | Pain | | 2015 | Encounter | CONVERSION [address] | Transaction, | | | | [address] | Provider Unknown | | | | | [place] | | | | | | [address] | (Fax) | | | | | [phone] | | | +--------+ + + + [...]
--- OUTSIDE RECORDS SUMMARY | ~2019-07-31 | XMS | Encounter Summary ---
Demographics + + + | Address | [address] | | | [place] [address] | + + + | Home Phone [...] Author | [facility] | + + + | Organization | [facility] | + + + | Address | Unknown | + + + | Phone | Unavailable | + + + Support + + + + + | Name | Relationship | Address | Phone | + + + + + | Christy Flaherty | ECON | [address] | | | | | [place] | | | | | [address] | | + + + + + Care Team Providers + +------+ + | Care Piercer Name | Role | Phone | + [...] | | | [address] | [facility] | | | | | [address] | [place], [place] | | | | | [place], | [address] | | | | | 4th floor [place], | [phone] | | | | | [place] [address] | | | | | | [phone] | | | +--------+ + + + [...]
--- OUTSIDE RECORDS SUMMARY | ~2019-07-31 | XMS | Encounter Summary ---
Demographics + + + | Address | [address] | | | [place] [address] | + + + | Home Phone [...] [place] | | | | | [address] | | + + + + + Care Team Providers + +------+ + | Care Prime Broker Name | Role | Phone | + +------+ + | Filippo Chen DO | PCP | | + +------+ + Encounter Details +--------+ + + + + | Date | Type | Department | Care Team | Description | +--------+ + + + + | 01/18/ | Document-Sc | Health Information | Unknown . | | | 2017 | anned | Services [address] | | | | | [address] | | | | | | Mailcode: OP17A | | | | | | [facility] | | | | | | [place], [place] | | | | | | [address] | | | | | | [phone] | | | +--------+ + + + [...]
--- OUTSIDE RECORDS SUMMARY | ~2019-07-31 | XMS | Encounter Summary ---
Demographics + + + | Address | [address] | | | [place] [address] | + + + | Home Phone | | + + + | Preferred Language | Unknown | + + + | Marital Status | | + + + | Confucianism Affiliation | 1061 | + + + | Race | Unknown | + + + | Ethnic Group | Unknown | + + + Author + + + | Author | [facility] | | | and [place] | + + + | Organization | [facility] | | [...] [place] | | | | | [address] | | + + + + + | Christy Flaherty | ECON | [address] | | | | | [place] | | | | | [address] | | + + + + + Care Team Providers + +------+ + | Care Typewriter Repairer Name | Role | Phone | + +------+ + | Juan Demarco MD | PCP | | + +------+ + Encounter Details +--------+ + + + + | Date | Type | Department | Care Team | Description | +--------+ + + + + | 01/22/ | Orders Only | [facility] | Conversion | | | 2016 | | INFECTIOUS DISEASE | Transaction, | | | | | [address] | Provider Unknown | | | | | [place], [place] | | | | | | [address] | (Fax) | | | | | [phone] | | | +--------+ + + + [...] + | ANTISTREPTOLYSIN O, | Routin | 01/22/2017 | | Results for this | | QUANT | e | 12:00 AM | | procedure are in the | | | | PDT | | results section. | + +--------+ + + + | DNASE B AB | Routin | 01/22/2017 | | Results for this | | | e | 12:00 AM | | procedure are in the | | | | PDT | | results section. | + +--------+ + + + documented in this encounter Results DNAse B Ab (01/22/2017 12:00 AM PDT) + + | Specimen | + + | | + + + + + | Impressions | Performed At | + + + | DNASE B Ab: 124 U/mL | EXTERNAL LAB | + + + + +---------+ + + | Performing | Address | City/State/Zipcode | Phone Number | | Organization | | | | + +---------+ + + | EXTERNAL LAB | | | | + +---------+ + + Antistreptolysin O, Quant (01/22/2017 12:00 AM PDT) + +---------+ + + + | Component | Value | Ref Range | Performed | Pathologist | | | | | At | Signature | + +---------+ + + + | Anti | 292 (A) | 0 - 250 | EXTERNAL [...]
--- OUTSIDE RECORDS SUMMARY | ~2019-07-31 | XMS | Encounter Summary ---
Demographics + + + | Address | [address] | | | [place] [address] | + + + | Home Phone | | + + + | Preferred Language | Unknown | + + + | Marital Status | | + + + | Holiness Affiliation | 1061 | + + + | Race | Unknown | + + + | Ethnic Group | Unknown | + + + Author + + + | Author | [facility] | | | and [place] | + + + | Organization | [facility] | | | [...] [place] | | | | | [address] | | + + + + + | Christy Flaherty | ECON | [address] | | | | | [place] | | | | | [address] | | + + + + + Care Team Providers + +------+ + | Care Gaming Investigator Name | Role | Phone | + +------+ + | Juan Demarco MD | PCP | | + +------+ + Encounter Details +--------+ + + + + | Date | Type | Department | Care Team | Description | +--------+ + + + + | 08/07/ | Transcribed | [facility] | Kimo Baum, | Convulsions, | | 2015 | Orders | [facility] | MD [address] | unspecified | | | | CENTER [address] | convulsion type | | | | [place], [place] | [place] [address] | ([facility]) (Primary Dx) | | | | [address] | [phone] | | | | | [phone] | | | +--------+ + + + [...] + | Butch Cosby MD 08/13/2014 7:46 [facility] | | | Services ELECTROENCEPHALOGRAM PATIENT INFORMATION Patient name: | | | Daysi Flaherty Date of : | | | 1965 Referring Physician: Kimo Baum MD Interpreting | | | Physician: Butch Cosby Date/Time of Study: 08/10/14, 1100 | | | TECHNICAL INFORMATION EEG Number: [id number] Electrode Placement: The | | | electroencephalogram was recorded with a Nihon-EC[employer] EEG | | | recording/reading station, using [...]
--- OUTSIDE RECORDS SUMMARY | ~2019-07-31 | XMS | Encounter Summary ---
Demographics + + + | Address | [address] | | | [place] [address] | + + + | Home Phone [...] + | Author | [facility] | | | and [place] | + + + | Organization | [facility] | | | [...] [place] | | | | | [address] | | + + + + + | Christy Flaherty | ECON | [address] | | | | | [place] | | | | | [address] | | + + + + + Care Team Providers + +------+ + | Care Crew Chief Name | Role | Phone | + +------+ + | Juan Demarco MD | PCP | | + +------+ + Encounter Details +--------+ + + + + | Date | Type | Department | Care Team | Description | +--------+ + + + + | 03/07/ | Orders Only | [facility] | Conversion | | | 2014 | | INFECTIOUS DISEASE | Transaction, | | | | | [address] | Provider Unknown | | | | | [place], [place] | | | | | | [address] | (Fax) | | | | | [phone] | | | +--------+ + + + [...] + | ANTISTREPTOLYSIN O, | Routin | 03/07/2015 | | Results for this | | QUANT | e | 12:00 AM | | procedure are in the | | | | PST | | results section. | + +--------+ + + + documented in this encounter Results Antistreptolysin O, Quant (03/07/2015 12:00 AM PST) + +---------+ + + + | Component | Value | Ref Range | Performed | Pathologist | | | | | At | Signature | + +---------+ + + + | Anti | 387 (A) | 0 - 250 IU/ml | [...]
--- OUTSIDE RECORDS SUMMARY | ~2019-07-31 | XMS | Encounter Summary ---
Demographics + + + | Address | [address] | | | [place] [address] | + + + | Home Phone [...] [place] | | | | | [address] | | + + + + + Care Team Providers + +------+ + | Care Communications Billing Analyst Name | Role | Phone | + +------+ + | Filippo Chen DO | PCP | | + +------+ + Encounter Details +--------+------+ + + + | Date | Type | Department | Care Team | Description | +--------+------+ + + + | 09/04/ | Lab | Laboratory at [facility] | | Encounter for | | 2016 | | [address] | | long-term current | | | | [place], [place] | | use of medication | | | | [address] | | | | | | [phone] | | | +--------+------+ + + + [...] [facility] | [address] | [place] [address] | | | SERVICES, CENTER FOR | [...] + + | [facility] | [address] | [place] [address] | | | SERVICES, CORE | PARK [...] | | | LABORATORY | | | [place] | | | SERVICES, | | | [...] the MDRD equation recommended by the | [facility] | | National Kidney Disease Education [...] | + + + + + | [facility] | [address] | [place] [address] | | | SERVICES, JAMISON | JEROME KUHN | | | + + + + + documented in this encounter Visit Diagnoses + + | Diagnosis | + + | Encounter for long-term current use of medication | + + documented in this encounter"
--- OUTSIDE RECORDS SUMMARY | ~2019-07-31 | XMS | Encounter Summary ---
Demographics + + + | Address | [address] | | | [place] [address] | + + + | Home Phone [...] [place] | | | | | [address] | | + + + + + Care Team Providers + +------+ + | Care Social Science Teacher Name | Role | Phone | [...] | 2019 | Encounter | Center at [facility] [address] | [address] | | | | | [address] | [address] | | | | | Mailcode: Center | [place], [place] | | | | | for Health and | [address] | | | | | Healing, [address] | [phone] | | | | | [place], [place] | | | | | | [address] | | | | | | [phone] | | | +--------+ + + + [...]
--- OUTSIDE RECORDS SUMMARY | ~2019-07-31 | XMS | Encounter Summary ---
Demographics + + + | Address | [address] | | | [place] [address] | + + + | Home Phone [...] [place] | | | | | [address] | | + + + + + Care Team Providers + +------+ + | Care Seam Stayer Name | Role | Phone | + +------+ + | Jarvis Willard MD | PCP | | + +------+ + Encounter Details +--------+ + + + + | Date | Type | Department | Care Team | Description | +--------+ + + + + | 02/06/ | Vmware Architect | Digestive Health | Duy [place], | Idiopathic chronic | | 2019 | | Center at [address] | [address] [facility] | pancreatitis (HCC) | | | | [address] | [address] | (Primary Dx) | | | | Mailcode: Center | [place], [place] | | | | | for Health and | [address] | | | | | Healing, [address] | [phone] | | | | | [place], [place] | | | | | | [address] | | | | | | [phone] | | | +--------+ + + + [...] | | LAB NAME | [facility] | | REFERENCE | | | | [place] [address] | | LAB | | | | [phone] | | | | | | | | | | | | [email or web address] | | | | | | | [...] | [facility] | | considered for monitoring termination clerk glycemic control in patients with: | LABORATORY [...] | + + + + + | [facility] | [address] | [place] [address] | | | SERVICES, SPECIAL | PARK [...] REFERENCE | 1 - 123 mg/dL | [facility] | | | SUBCLASS | INTERVAL: Immunoglobulin | | REG UNIV | | | | G Subclass 4 Access | | PTH - INTFC | | | | complete set of age- | | | | | | and/or gender-specific | | | | | | reference intervals for | | | | | | this test in the [facility] | | | | | | Laboratory Test | | | | | | Directory | | | | | | ([employer]).Performed | | | | | | by [address] | | | | | | Chanelle Dean [facility] | | | | | | [address] | | | | | | [phone].VANCL. | | | | | | [facility] center[facility] MD, | | | | | | [...] [facility] | [address] | [place], [place] | | | UNIV PTH - INTFC | | [address] | | + + + + + [...] | + + + + + | [facility] | [address] | [place] [address] | | | SERVICES, CORE | JEROME [...] | | | SERUM | Chanelle Dean, [facility] | | PTH - INTFC | | | | [address] | | | | | | [phone].[email or web address]. | | | | | | comRehan MD, | | | | | | [...] B: | | | | | | VANCL.Purple Binder/ | | | | + + + + + + + + | Specimen | + + | Blood - Blood | | (substance) | + + + + + + + | Performing | Address | City/State/Zipcode | Phone Number | | Organization | | | | + + + + + | [facility] | [address] | [place], [place] | | | UNIV PTH - INTFC | | [address] | | + + + + + [...] [place] | | | | | | [address] | | | | | | [phone].[email or web address]. | | | | | | Rehan [...] | + + + + + | [facility] | [address] | [place], [place] | | | UNIV PTH - INTFC | | [address] | | + + + + + [...] | + + + + + | [facility] | [address] | [place] [address] | | | SERVICES, CORE | JEROME [...] [facility] | [address] | [place] [address] | | | SERVICES, CORE | PARK [...] | + + + + + | [facility] | [address] [facility] | [place] [address] | | | SERVICES, CORE | PARK [...] INTFC | | | | determined by [facility] | | | | | | Laboratories. See | | | | | | Compliance Statement B: | | | | | | VANCL.Purple Binder/CSPerformed | | | | | | by [address] | | | | | | Chanelle Dean, [facility] | | | | | | [address] | | | | | | [phone].Yappsa App Storelab. | | | | | | [facility] centerRehan MD, | | | | | | [...] [facility] | [address] | [place], [place] | | | UNIV PTH - INTFC | | [address] | | + + + + + VITAMIN B1, WHOLE BLOOD (02/08/2019 10:56 AM PST) + + + + + + | Component | Value | Ref Range | Performed | Pathologist | | | | | At | Signature | + + + + + + | VITAMIN B1, | 112Comment: INTERPRETIVE | 70 - 180 nmol/L | [facility] | | | WHOLE | INFORMATION: Vitamin [...] | | | | | determined by [facility] | | | | | | Laboratories. See | | | | | | Compliance Statement B: | | | | | | VANCL.Purple Binder/CSPerformed | | | | | | by [address] | | | | | | [place], [place] | | | | | | [address] | | | | | | [phone].VANCL. | | | | | | [facility] centerRehan MD, | | | | | | [...] [facility] | [address] | [place], [place] | | | UNIV PTH - INTFC | | [address] | | + + + + + [...] [facility] | [address] | [place] [address] | | | SERVICES, CORE | PARK [...] | + + + + + | [facility] | [address] | [place] [address] | | | SERVICES, CORE | [address] | | | + + + + + LIPASE, PLASMA (02/08/2019 10:56 AM PST) + +--------+ + + + | Component | Value | Ref Range | Performed | Pathologist | | | | | At | Signature | + +--------+ + + + | LIPASE | 49 (L) | 152 - 353 U/L | [facility] | | | (LAB) | | | [...] | + + + + + | [facility] | [address] | [place] [address] | | | SERVICES, CORE | JEROME [...] - | | | | | | [place] | | + +-------+ + + + + + | Specimen | + + | Blood - Blood | | (substance) | + + + + + + + | Performing | Address | City/State/Zipcode | Phone Number | | Organization | | | | + + + + + | [facility] | [address] | [place] [address] | | | [place] | | | | + + + [...] | | | LABORATORY | | | [facility] | | | SERVICES, | | | [...] MDRD equation recommended by the National | [facility] | | Kidney Disease Education Program. Estimated [...] [facility] | [address] | [place] [address] | | | SERVICES, [facility] | | | | | HEALTH + HEALING | | | | + + + + + documented in this encounter Visit Diagnoses + + | Diagnosis | + + | Idiopathic chronic pancreatitis (HCC) - Primary | + + documented in this encounter"
--- OUTSIDE RECORDS SUMMARY | ~2019-07-31 | XMS | Encounter Summary ---
Demographics + + + | Address | [address] | | | [place] [address] | + + + | Home Phone [...] [place] | | | | | [address] | | + + + + + Care Team Providers + +------+ + | Care Molecular Geneticist Name | Role | Phone | + [...] Question | | 2016 | Encounter | [facility] & | [address] | | | | | Healing [address] | [place], [place] | | | | | Ave Mailcode: [facility] | [address] | | | | | [facility] | [phone] | | | | | and Healing, | | | | | | Building | | | | | | [place], [place] | | | | | | [address] | | | | | | [phone] | | | +--------+ + + + [...]
--- OUTSIDE RECORDS SUMMARY | ~2019-07-31 | XMS | Encounter Summary ---
Demographics + + + | Address | [address] | | | [place] [address] | + + + | Home Phone [...] + + + | Author | [facility] | + + + | Organization | [facility] | + + + | Address | Unknown | + + + | Phone | Unavailable | + + + Support + + + + + | Name | Relationship | Address | Phone | + + + + + | Christy Flaherty | ECON | [address] | | | | | [place] | | | | | [address] | | + + + + + Care Team Providers + +------+ + | Care Agent Ticketing Gate Name | Role | Phone | + +------+ + | Filippo Chen DO | PCP | | + +------+ + Encounter Details +--------+------+ + + + | Date | Type | Department | Care Team | Description | +--------+------+ + + + | 09/04/ | Lab | Laboratory at [facility] | | Encounter for | | 2016 | | [address] | | long-term current | | | | [place], [place] | | use of medication | | | | [address] | | | | | | [phone] | | | +--------+------+ + + + [...] [facility] | [address] | [place] [address] | | | SERVICES, CENTER FOR | [...] [facility] | [address] | [place] [address] | | | SERVICES, CORE | PARK [...] | | | LABORATORY | | | [place] CIT[place] | | | SERVICES, | | | [...] the MDRD equation recommended by the | [facility] | | National Kidney Disease Education Program. [...] | + + + + + | [facility] | [address] | [place] [address] | | | SERVICES, JAM[place] | JEROME KUHN | | | + + + + + documented in this encounter Visit Diagnoses + + | Diagnosis | + + | Encounter for long-term current use of medication | + + documented in this encounter"
--- OUTSIDE RECORDS SUMMARY | ~2019-07-31 | XMS | Encounter Summary ---
Demographics + + + | Address | [address] | | | [place] [address] | + + + | Home Phone [...] + + + + + | Christy Flaheryt | ECON | [address] | | | | | [place] | | | | | [address] | | + + + + + Care Team Providers + +------+ + | Care Mental Health Orderly Name | Role | Phone | + +------+ + | Filippo Chen DO | PCP | | + +------+ + Encounter Details +--------+ + + + + | Date | Type | Department | Care Team | Description | +--------+ + + + + | 01/18/ | Document-Sc | Health Information | Unknown . | | | 2017 | anned | Services [address] | | | | | | [address] | | | | | | Mailcode: OP17A | | | | | | [facility] | | | | | | [place], [place] | | | | | | [address] | | | | | | [phone] | | | +--------+ + + + [...]
--- OUTSIDE RECORDS SUMMARY | ~2019-07-31 | XMS | Encounter Summary ---
Demographics + + + | Address | [address] | | | [place] [address] | + + + | Home Phone [...] [place] | | | | | [address] | | + + + + + | Christy Flaherty | ECON | [address] | | | | | [place] | | | | | [address] | | + + + + + Care Team Providers + +------+ + | Care Market Development Manager Name | Role | Phone | + +------+ + | Juan Demarco MD | PCP | | + +------+ + Encounter Details +--------+ + + + + | Date | Type | Department | Care Team | Description | +--------+ + + + + | 12/18/ | Orders Only | [facility] | Conversion | | | 2014 | | INFECTIOUS DISEASE | Transaction, | | | | | [address] | Provider Unknown | | | | | [place], [place] | | | | | | [address] | (Fax) | | | | | [phone] | | | +--------+ + + + [...] | + +--------+ + + + | ANTINUCLEAR AB | Routin | 12/18/2014 | | Results for this | | MULTIPLE | e | 12:00 AM | | procedure are in the | | | | PDT | | results section. | + +--------+ + + + | PARVOVIRUS B19 AB, | Routin | 12/18/2014 | | Results for this | | IGG AND IGM | e | 12:00 AM | | procedure are in the | | | | PDT | | results section. | + +--------+ + + + | RHEUMATOID FACTOR, | Routin | 12/18/2014 | | Results for this | | QUANT | e | 12:00 AM | | procedure are in the | | | | PDT | | results section. | + +--------+ + + + documented in this encounter Results Parvovirus B19 Ab, IgG and IgM (12/18/2014 12:00 AM PDT) + + | Specimen | + + | Blood specimen | | (specimen) | + + + + + | Narrative | Performed At | + + + | PARVO B19 AB, IGG--------2.1 PARVO B19 AB, IGM--------<0.1 | EXTERNAL LAB | + + + + +---------+ + + | Performing | Address | City/State/Zipcode | Phone Number | | Organization | | | | + +---------+ + + | EXTERNAL LAB | | | | + +---------+ + + Rheumatoid Factor, Quant (12/18/2014 12:00 AM PDT) + +-------+ + + + | Component | Value | Ref Range | Performed | Pathologist | | | | | At | Signature | + +-------+ + + + | RHEUMATOID | <10 | | EXTERNAL | | | FACTOR | | | LAB | | + +-------+ + + + + + | Specimen | + + | Blood specimen | | (specimen) | + + + +---------+ + + | Performing | Address | City/State/Zipcode | Phone Number | | Organization | | | | + +---------+ + + | EXTERNAL LAB | | | | + +---------+ + + Antinuclear AB Multiple (12/18/2014 12:00 AM PDT) + +-------+ + + + | Component | Value | Ref Range | Performed | Pathologist | | | | | At | Signature | + +-------+ + + + | JULIANN | | | EXTERNAL | | | | | | LAB | | + +-------+ + + + + + | Specimen | + + | Blood specimen | | (specimen) | + + + + + | Narrative | Performed At | + + + | JULIANN TITER-------<1:40 JULIANN PATTERN--N/A JULIANN REFLEX-----NO | EXTERNAL LAB | + + + + +---------+ + + | Performing | Address | City/State/Zipcode | Phone Number | | Organization | | | | + +---------+ + + | EXTERNAL LAB | | | | + +---------+ + + documented in this encounter Visit Diagnoses Not on filedocumented in this encounter"
--- OUTSIDE RECORDS SUMMARY | ~2019-07-31 | XMS | Encounter Summary ---
Demographics + + + | Address | [address] | | | [place] [address] | + + + | Home Phone [...] [place] | | | | | [address] | | + + + + + | Christy Flaherty | ECON | [address] | | | | | [place] | | | | | [address] | | + + + + + Care Team Providers + +------+ + | Care Still Operator Helper Name | Role | Phone | + +------+ + | Juan Demarco MD | PCP | | + +------+ + Encounter Details +--------+ + + + + | Date | Type | Department | Care Team | Description | +--------+ + + + + | 10/19/ | Orders Only | [facility] | Juan Manuel Sams | | | 2015 | | NEUROLOGY [address] | MD Nic [address] | | | | | [address] | [address] | | | | | [place] | [place] [address] | | | | | [address] | [phone] | | | | | [phone] | | | +--------+ + + + [...] 1.023 | | EXTERNAL | | | [place], | | | LAB | | | [...] + + + | Red Blood | 4.75 | 10 | EXTERNAL | | | Cells | | | LAB | | | Counted | | | | | + + + + + + | Hemoglobin | 13.9 | g/dL | EXTERNAL | [...]
--- OUTSIDE RECORDS SUMMARY | ~2019-07-31 | XMS | Encounter Summary ---
Demographics + + + | Address | [address] | | | [place] [address] | + + + | Home Phone | | + + + | Preferred Language | Unknown | + + + | Marital Status | | + + + | Holiness Affiliation | 1061 | + + + | Race | Unknown | + + + | Ethnic Group | Unknown | + + + Author + + + | Author | [facility] | | | and [place] | + + + | Organization | [facility] | | | [...] [place] | | | | | [address] | | + + + + + | Christy Flaherty | ECON | [address] | | | | | [place] | | | | | [address] | | + + + + + Care Team Providers + +------+ + | Care Irrigation Technician Name | Role | Phone | + +------+ + | Juan Demarco MD | PCP | | + +------+ + Encounter Details +--------+ + + + + | Date | Type | Department | Care Team | Description | +--------+ + + + + | 12/10/ | Orders Only | [facility] | Conversion | | | 2014 | | INFECTIOUS DISEASE | Transaction, | | | | | [address] | Provider Unknown | | | | | [place], [place] | | | | | | [address] | (Fax) | | | | | [phone] | | | +--------+ + + + [...]
--- OUTSIDE RECORDS SUMMARY | ~2019-07-31 | XMS | Encounter Summary ---
Demographics + + + | Address | [address] | | | [place] [address] | + + + | Home Phone [...] [place] | | | | | [address] | | + + + + + Care Team Providers + +------+ + | Care Butter Wrapper Name | Role | Phone | + +------+ + | Jarvis Willard MD | PCP | | + +------+ + Reason for Visit + + + | Reason | Comments | + + + | Insurance | | | Authorization | | + + + Encounter Details +--------+ + + + + | Date | Type | Department | Care Team | Description | +--------+ + + + + | 04// | Documentati | Mukund Escudero | Maryana Edmonds MD | Insurance | | 2020 | on | [facility] | [address] [facility] | Authorization | | | | [facility] | [facility] | | | | | [address] | [place], [place] | | | | | [address] | [address] | | | | | [facility] | [phone] | | | | | [address] [place], | | | | | | [place] [address] | | | | | | [phone] | | | +--------+ + + + [...]
--- OUTSIDE RECORDS SUMMARY | ~2019-07-31 | XMS | Encounter Summary ---
Demographics + + + | Address | [address] | | | [place] [address] | + + + | Home Phone [...] [place] | | | | | [address] | | + + + + + Care Team Providers + +------+ + | Care Cube Machine Tender Name | Role | Phone | + +------+ + | Filippo Chen DO | PCP | | + +------+ + Reason for Visit + + + | Reason | Comments | + + + | Follow-up visit | | + + + Consultation (Urgent) [...] Pancreatic | Paras K, | [facility] [address] | | | | | mass | MD [address] | | | | | Epigastric | [address] | Mailcode: | | | | | pain | [address] | Center for | | | | | Elevated | [place], [place] | Health and | | | | | lipase | [address] | Healing, | | | | | Procedures | Phone: | [address] | | | | | CONSULT TO | [phone] | [place], [place] | | | | | GASTROENTERO | Fax: | [address] | | | | | [place] | [phone] | Phone: | | | | | | | [phone] | | | | | | | Fax: | | | | | | | [phone] | +--------+--------+ + + + + Encounter Details +--------+---------+ + + + | Date | Type | Department | Care Team | Description | +--------+---------+ + + + | 07/29/ | Office | Digestive Health | Taiwo Tilley, | Idiopathic chronic | | 2018 | Visit | [facility] [address] | MD [address] [facility] | pancreatitis (HCC) | | | | [address] | [address] | (Primary Dx) | | | | Mailcode: Center | [place], [place] | | | | | for Health and | [address] | | | | | [facility], [facility] | [phone] | | | | | [place], [place] | | | | | | [address] | | | | | | [phone] | | | +--------+---------+ + + + [...] Pressure | 110/67 | 07/29/2017 1:11 PM | | | | | PDT | | + + + + + | Pulse | 64 | 07/29/2017 1:11 PM | | | | | PDT | | + + + + + | Temperature | 36.8 C (98.2 F) | 07/29/2017 1:11 PM | | | [...] (246 lb 6.4 | 07/29/2017 1:11 PM | | | | oz) | PDT | | + + + + + | Height | - | - | | + + + + + | Body Mass Index | 35.35 | 04/09/2017 11:25 AM | | | | | PST | | + + + + + documented in this encounter Progress Notes Taiwo Tilley MD - 07/29/2017 12:20 PM PDTFormatting of this note might be different fro m the original. [facility] Patient Name: Daysi Flaherty MR#: [id number] : 1965 This is a 52 y/o male who is here for follow up on abdominal pain. About a year and hlaf ago he noted episodic mild abdominal discomfort. [...] 6 week with no resolution. He has Carver 1 stools. He is non-smoker (ex-smoker) and [...] pain. Indications: Pain lamoTRIgine 25 mg oral tablet 25 mg every other day for two weeks Indications: COMPLEX -PARTIAL EPILEPSY lubiprostone (AMITIZA) 24 mcg oral capsule Take 1 capsule by mouth two times daily. Ind ications: chronic idiopathic constipation methotrexate 2.5 mg oral tablet Take 10 mg by mouth every seven days. Takes every day Indications: PSORIATIC ARTHRITIS mometasone 0.1 % topical cream Apply 1 applicator to affected area once daily. Apply a thin film to ears daily (indication: psoriasis) polyethylene glycol (MIRALAX) 17 gram/dose oral powder Mix 17 g in liquid and drink two times daily. Indications: constipation No current facility-administered medications for this visit. Allergies Allergen Reactions Piroxicam Rash Pt mentions he developed a rash while on this medication. Resolved immediately upon disco ntinue. Meloxicam Diarrhea Bowel incontinence Mznixvm-Gav-Zzg Reductase Inhibitors Seizures Increased frequency of seizures, [...] There is tenderness (R LQ and LLQ). Genitourinary: Rectal exam shows tenderness. Genitourinary Comments: Fissure, ant wall. Neurological: He is alert and oriented to person, place, and time. Skin: Skin is warm and dry. Psychiatric: Mood, memory, affect and judgment normal. Outside records including endoscopic and radiographic studies were reviewed with the patie nt. EUS 04/09/17: Gastritis. Biopsied. Pancreatic parenchymal abnormalities consisting of atrophy, hyperechoic strands and lobular ity were noted in the entire pancreas. These changes were concenring for chronic pancreatiti s. An area of more pronounced parenchymal changes vs mass was identified in the pancreatic h ead. Fine needle aspiration performed. Two enlarged lymph nodes were visualized in the peripancreatic region. Tissue has not been obtained. However, the endosonographic appearance is consistent with benign inflammatory changes. Final Cytologic Diagnosis: A. Head of pancreas, EUSg FNA (x7): - Negative for malignancy - Please see comment The head of pancreas sampling is reviewed over FNA x7 and the cytologic preparation is sparsely cellular revealing findings consistent with chronic pancreatitis. There is no malignancy. CT Abdomen (03/11/17) Since 01/18/17, stable to minimal improvement in mild peripancreatic inflammatory changes s uggestive of possible autoimmune pancreatitis versus resolving pancreatitis without evidence of focal mass lesion. Fatty liver. CT ABDOMEN (01/18/17): IMPRESSION: No obvious pancreatic mass identified. Trace peripancreatic stranding is suggestive of acut e edematous mild pancreatitis. No other pancreatic abnormality identified. A/P: Assessment: 1. Chronic pancreatitis: Recurrent epigastric abdominal pain over one year with weight loss and CT changes suggestive of pancreatitis. EUS with FNA was suggestive of chronic pancreati tis. Low serum Trypsin and low fecal elastase are also supportive of that diagnosis. Autoiim mune remains in the differential diagnosis. 2. Severe constipation, not responding to Linzess. Sitz Marker testing showed no residual markers at day 5. 3. Rectal bleeding. Outlet type and most likely related to #2. Colonoscopy unremarkable two years ago. Fissure noted on rectal examination. Plan: 1. Awaiting results of repeat CT scan today. 2. Miralax 8.5 gm PO daily 3. Sitz- Bath twice a day 4. Rectiv for 4-6 weeks/ 5. RTC in 6 months. d ocumented in this encounter Plan of Treatment Not on filedocumented as of this encounter Visit Diagnoses + + | Diagnosis | + + | Idiopathic chronic pancreatitis (HCC) - Primary | + + documented in this encounter"
--- OUTSIDE RECORDS SUMMARY | ~2019-07-31 | XMS | Encounter Summary ---
Demographics + + + | Address | [address] | | | [place] [address] | + + + | Home Phone | | + + + | Preferred Language | Unknown | + + + | Marital Status | | + + + | Episcopalian Affiliation | 1061 | + + + | Race | Unknown | + + + | Ethnic Group | Unknown | + + + Author + + + | Author | [facility] | | | and [place] | + + + | Organization | [facility] | | | [...] [place] | | | | | [address] | | + + + + + | Christy Flaherty | ECON | [address] | | | | | [place] | | | | | [address] | | + + + + + Care Team Providers + +------+ + | Care Nuclear Plant Equipment Operator Name | Role | Phone | + +------+ + | Juan Demarco MD | PCP | | + +------+ + Encounter Details +--------+ + + + + | Date | Type | Department | Care Team | Description | +--------+ + + + + | 01/28/ | Orders Only | [facility] | Conversion | | | 2014 | | INFECTIOUS DISEASE | Transaction, | | | | | [address] | Provider Unknown | | | | | [place], [place] | | | | | | [address] | (Fax) | | | | | [phone] | | | +--------+ + + + [...] | + +-------+ + + + | Red Blood | 5.42 | 10 | EXTERNAL | | | Cells | | | LAB | | | Counted | | | | | + +-------+ + + + | Hemoglobin | 16.2 | g/dL | EXTERNAL | [...]
--- OUTSIDE RECORDS SUMMARY | ~2019-07-31 | XMS | Clinical Summary ---
Demographics + + + | Address | [address] | | | [place] [address] | + + + | Home Phone [...] + | Author | [facility] | | | and [place] | + + + | Organization | [facility] | | | and [place] | + [...] [place] | | | | | [address] | | + + + + + | Christy Flaherty | ECON | [address] | | | | | [place] | | | | | [address] | | + + + + + Care Team Providers + +------+ + | Care Engraver Letter Name | Role | Phone | + +------+ + | Juan Demaroc MD | PCP | | + +------+ [...] | | | Dtap/Tdap/Td (1 - | 6 | | | | Tdap) | | [...] | [employer] | [employer] | [id number] | | [phone] | | Medica | | MEDICAID HMO | HEALTH | | [id number]-Pr | 1 | | id | | | MDCD | | esent | | | | | | [place] | | | | | | + +--------+ +--------+ +---------+--------+ | [employer] | [employer]OADS | [id number] | | [phone] | | Indemn | [...] [place] | | | 7 (Home) | [address] | + +--------+ +--------+ + + | Daysi Flaherty | Worker | Self | [birth year] | | [address] | | | [address] | | 1966 | [phone] | [place] [address] | | | | | | 7 (Home) | | + +--------+ +--------+ + + Advance Directives + + + + + | Type | Date Recorded | Patient | Explanation | | | | Insole Tape Stitcher Uco | | + + + + + | Power of | | | | | Job Honer | | | | + + + + + | Advance | 08/10/2014 10:15 | | | | Directive | AM | | | + + + + +
--- OUTSIDE RECORDS SUMMARY | ~2019-07-31 | XMS | Encounter Summary ---
Demographics + + + | Address | [address] | | | [place] [address] | + + + | Home Phone [...] [place] | | | | | [address] | | + + + + + | Christy Flaherty | ECON | [address] | | | | | [place] | | | | | [address] | | + + + + + Care Team Providers + +------+ + | Care Head Irrigator Name | Role | Phone | + +------+ + | Juan Demarco MD | PCP | | + +------+ + Encounter Details +--------+ + + + + | Date | Type | Department | Care Team | Description | +--------+ + + + + | 01/08/ | Hospital | [facility] | Conversion | Rheumatic fever; | | 2014 | Encounter | CENTER [facility] OP | Transaction, | Aortic valve | | | | [address] | Provider Unknown | disorder | | | | [place], [place] | [phone] | | | | | [address] | | | | | | [phone] | Jb Mendiola MD | | | | | | [address] | | | | | | [place] [address] | | | | | | [phone] | | | | | | | [...] 01/08/151046 Date of Service: 01/08/151042 Status: Signed Admin Asst: Bolivar Pemberton RN (Registered Nurse) Pt tolerated [...]
--- OUTSIDE RECORDS SUMMARY | ~2019-07-31 | XMS | Encounter Summary ---
Demographics + + + | Address | [address] | | | [place] [address] | + + + | Home Phone | | + + + | Preferred Language | Unknown | + + + | Marital Status | | + + + | Congregation Affiliation | ASG | + + + | Race | White | + + + | Ethnic Group | Not or | + + + Author + + + | Author | [facility] | + + + | Organization | [facility] | + + + | Address | Unknown | + + + | Phone | Unavailable | + + + Support + + + + + | Name | Relationship | Address | Phone | + + + + + | Christy Flaherty | ECON | [address] | | | | | [place] | | | | | [address] | | + + + + + Care Team Providers + +------+ + | Care Surgical Dental Assistant Name | Role | Phone | + +------+ + | Filippo Chen DO | PCP | | + +------+ + Encounter Details +--------+ + + + + | Date | Type | Department | Care Team | Description | +--------+ + + + + | 09/16/ | MyChart | Neurology at | Noe Arambula, | RE: 01.28: | | 2016 | Encounter | [facility] & | MD | Category of | | | | Healing [address] | | Impairments, | | | | [address] Mailcode: CH8C | | Neurological | | | | [facility] | | | | | | and Healing, | | | | | | Building [facility] | | | | | | Floor [place], [place] | | | | | | [address] | | | | | | [phone] | | | +--------+ + + + [...]
--- OUTSIDE RECORDS SUMMARY | ~2019-07-31 | XMS | Encounter Summary ---
Demographics + + + | Address | [address] | | | [place] [address] | + + + | Home Phone | | + + + | Preferred Language | Unknown | + + + | Marital Status | | + + + | Hindu Affiliation | 1061 | + + + | Race | Unknown | + + + | Ethnic Group | Unknown | + + + Author + + + | Author | [facility] | | | and [place] | + + + | Organization | [facility] | | | [...] [place] | | | | | [address] | | + + + + + | Christy Flaherty | ECON | [address] | | | | | [place] | | | | | [address] | | + + + + + Care Team Providers + +------+ + | Care Fire Investigation Lieutenant Name | Role | Phone | + +------+ + | Juan Demarco MD | PCP | | + +------+ + Encounter Details +--------+ + + + + | Date | Type | Department | Care Team | Description | +--------+ + + + + | 11/07/ | Hospital | [facility] | Conversion | Pain | | 2015 | Encounter | CONVERSION [address] | Transaction, | | | | [address] | Provider Unknown | | | | | [place] | | | | | | [address] | (Fax) | | | | | [phone] | | | +--------+ + + + [...]
--- OUTSIDE RECORDS SUMMARY | ~2019-07-31 | XMS | Encounter Summary ---
Demographics + + + | Address | [address] | | | [place] [address] | + + + | Home Phone [...] [place] | | | | | [address] | | + + + + + Care Team Providers + +------+ + | Care Fashion Journalist Name | Role | Phone | + +------+ + | Jarvis Willard MD | PCP | | + +------+ + Encounter Details +--------+ + + + + | Date | Type | Department | Care Team | Description | +--------+ + + + + | 03/06/ | Documentati | Digestive Health | Taiwo Tilley, | | | 2019 | on | [place] at [facility] [address] | [address] [facility] | | | | | [address] | [address] | | | | | Mailcode: Center | [place], [place] | | | | | for Health and | [address] | | | | | [facility], [facility] | [phone] | | | | | [place], [place] | | | | | | [address] | | | | | | [phone] | | | +--------+ + + + [...]
--- OUTSIDE RECORDS SUMMARY | ~2019-07-31 | XMS | Encounter Summary ---
Demographics + + + | Address | [address] | | | [place] [address] | + + + | Home Phone [...] + + + | Author | [facility] | + + + | Organization | [facility] | + + + | Address | Unknown | + + + | Phone | Unavailable | + + + Support + + + + + | Name | Relationship | Address | Phone | + + + + + | Christy Flaherty | ECON | [address] | | | | | [place] | | | | | [address] | | + + + + + Care Team Providers + +------+ + | Care Buckle Sewer Machine Name | Role | Phone | + +------+ + | Jarvis Willard MD | PCP | | + +------+ + Encounter Details +--------+ + + + + | Date | Type | Department | Care Team | Description | +--------+ + + + + | 03/15/ | Inside | Endoscopic | Yanni Tilley, | | | 2017 | Referral | Procedural Unit at | [address] | | | | Order | [address] [place] [address] | [address] | | | | | [address] | [place], [place] | | | | | [place], | [address] | | | | | 4th floor [place], | [phone] | | | | | [place] [address] | | | | | | [phone] | | | +--------+ + + + [...] on filedocumented as of this encounter Results EUS UPPER (04/09/2017 1:07 PM PST) + + | Specimen | + + | | + + + + + | Narrative | Performed At | + + + | MRN: | [facility] | | [id number] Date: 04/09/2017Patient Name: Daysi Cook #: | ENDOSCOPY | | [id number] of : 1965CSN: [id number] Type: | | | AmbulatoryRoom: GI 3Procedure: Upper EUSIndications: | | | Abnormal ultrasound of the abdomenProviders: | | | YANNI TILLEY MD (Doctor), LUIS A MAYES RN (Nurse), | | | JYOTI RODRIGUEZ, Freight Loader (Freight Loader)Referring MD: | | | YANNI TILLEY MDRequesting Provider: Medicines: | | | [...] the procedure. | | | The Olympus [id number] AL5 Linear Echoendoscope #[id number] | | | was introduced through the mouth, and advanced | | | to the second part of duodenum. The | | | Olympus [id number] Endoscope #[id number] | | | was introduced through the [...] stylet | | | was used. A grid caster was present and performed a preliminary | [...] | Participation: I personally performed the entire procedure.Yanni | | | MELLISSA Tilley MD04/09/2017 3:29:43 PMThis report has | | | been signed electronically.Number of Addenda: 0Note Initiated On: | | | 04/09/2017 1:07 [facility] Letter to: LISA PINON DO | | |Attending Participation: | | | I personally performed the entire procedure. | | |Yanni Tilley MD | | |YANNI TILLEY MD | | |04/09/2017 3:29:43 PM | | |This report has been signed electronically. | | |Number of Addenda: 0 | | |Note Initiated On: 04/09/2017 1:07 PM | | | Letter to: | | | LISA PINON DO | | + + + + [...]
--- OUTSIDE RECORDS SUMMARY | ~2019-07-31 | XMS | Encounter Summary ---
Demographics + + + | Address | [address] | | | [place] [address] | + + + | Home Phone [...] [place] | | | | | [address] | | + + + + + | Christy Flaherty | ECON | [address] | | | | | [place] | | | | | [address] | | + + + + + Care Team Providers + +------+ + | Care Triage Nurse Name | Role | Phone | [...] + + | 09/02/ | Office | [facility] | Cecilia, Aure | Localized skin mass, | | 2012 | Visit | CARE [address] | MD Janel [address] | lump, or swelling | | | | [place], [place] | [address] | (Primary Dx); Place | | | | [address] | [place] [address] | of occurrence, | | | | [phone] | [phone] | industrial places | | | | [...] - 09/02/2012 11:58 AM PDTSee dictation # [id number] sign ed by Aure Brooks MD at 09/02/2012 12:02 PM Aure Villalta MD - 3 12:00 AM PDT , URGENT CARE NOTE EMPLOYER: [employer]. GUARANTOR: [employer]. DATE OF INJURY: 08/18/2012 CLAIM #[id number] CHIEF COMPLAINT: Right hand swelling. SUBJECTIVE: The [...] Brooks MD PV / MS JOB #: [id number] signed by Aure Brooks MD at 09/07/2012 [...]
--- OUTSIDE RECORDS SUMMARY | ~2019-07-31 | XMS | Encounter Summary ---
Demographics + + + | Address | [address] | | | [place] [address] | + + + | Home Phone [...] [place] | | | | | [address] | | + + + + + Care Team Providers + +------+ + | Care Supervisor Boatbuilders Wood Name | Role | Phone | + [...] | | | | | Elevated | [place], [place] | Health and | | | | | lipase | [address] | Healing, | | | | | Procedures | Phone: | Building 2 | | | | | CONSULT TO | [phone] | [place], [place] | | | | | GASTROENTERO | Fax: | [address] | | | | | LOGY | [phone] | Phone: | | | | | | | [phone] | | | | | | | Fax: | | | | | | | [phone] | +--------+--------+ + + + + Encounter Details +--------+---------+ + + + | Date | Type | Department | Care Team | Description | +--------+---------+ + + + | 07/29/ | Office | Digestive Health | Taiwo Tilley, | 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 [facility] Patient Name: Daysi Flaherty MR#: [id number] : 1965 This is a 52 y/o [...] 6 week with no resolution. He has [place] 1 stools. He is non-smoker (ex-smoker) and [...] upon disco ntinue. Meloxicam Diarrhea Bowel incontinence Ryklimh-Iki-Taj Reductase Inhibitors Seizures Increased frequency of seizures, [...]
--- OUTSIDE RECORDS SUMMARY | ~2019-07-31 | XMS | Encounter Summary ---
Demographics + + + | Address | [address] | | | [place] [address] | + + + | Home Phone | | + + + | Preferred Language | Unknown | + + + | Marital Status | | + + + | Jewish Affiliation | ASG | + + + [...] [place] | | | | | [address] | | + + + + + Care Team Providers + +------+ + | Care Salesperson Wigs Name | Role | Phone | + +------+ + | Filippo Chen DO | PCP | | + +------+ + Encounter Details +--------+ + + + + | Date | Type | Department | Care Team | Description | +--------+ + + + + | 09/05/ | MyChart | Neurology at | Noe Arambula, | Medication changes | | 2016 | Encounter | [facility] & | | | | | | Healing [address] | | | | | | [place] Mailcode: [facility] | | | | | | [facility] | | | | | | and Healing, | | | | | | Building | | | | | | Floor [place], [place] | | | | | | [address] | | | | | | [phone] | | | +--------+ + + + [...]
--- OUTSIDE RECORDS SUMMARY | ~2019-07-31 | XMS | Encounter Summary ---
Demographics + + + | Address | [address] | | | [place] [address] | + + + | Home Phone [...] [place] | | | | | [address] | | + + + + + Care Team Providers + +------+ + | Care Embedded Software Architect Name | Role | Phone | [...] | | | | pancreatitis | [address] | Mailcode: | | | | | (HCC) | Rd | [facility] | | | | | Localization | [place], [place] | for Health | | | | | -related | [address] | and Healing, | | | | | symptomatic | Phone: | Building 1, | | | | | epilepsy and | [phone] | 8th Floor | | | | | epileptic | Fax: | [place], [place] | | | | | syndromes | [phone] | [address] | | | | | with complex | | Phone: | | | | | partial | | [phone] | | | | | seizures, | | Fax: | | | | | intractable, | | [phone] | | | | | without | | | | | | | status | | | | | | | epilepticus | | | | | | | ([facility]) | | | | | [...] [facility] | [facility] | | | | | (HCC) | Rd | Rd [facility], | | | | | Procedures | [place], [place] | [place] | | | | | CONSULT TO | [address] | [address] | | | | | ADULT | Phone: | | | | | | MEDICAL | [phone] | | | | | | NUTRITIONAL | Fax: | | | | | | THERAPY | [phone] | | +--------+--------+ + + + + [...] Management | 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 | Jarda Forrest, PhD | | | | | chronic | [address] | [address] | | | | | pancreatitis | [facility] | Ave | | | | | (HCC) | Rd | [place], [place] | | | | | Procedures | [place] | [address] | | | | | CONSULT TO | [address] | Phone: | | | | | COMPREHENSIV | Phone: | [phone] | | | | | E PAIN | [phone] | Fax: | | | | | CENTER - | Fax: | [phone] | | | | | PSYCH GROUP | [phone] | | +--------+---------+ + + + + [...] | | | Dr. Horn or | [place] | Tita Plascencia | | | | | Dr. Edmonds | [address] | [address] | | | | | - Evaluate | Phone: | [place], [place] | | | | | for TPIAT | [phone] | [address] | | | | | candidacy. | Fax: | Phone: | | | | | Discussed | [phone] | [phone] | | | | | at chronic | | Fax: | | | | | pancreatitis | | [phone] | | | | | conference | [...] | | | | | | (ADULT) [place] | | | | | | | NEW PATIENT | | | | | | | LEVEL V [place] | | | | | | | [...] | Pain | Diagnoses | [place], | Furnace Filler Ch[facility] | | | | Management | 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 | [address] | | | | | chronic | [address] | Ave | | | | | pancreatitis | [facility] | Mailcode: | | | | | ([facility]) | Rd | [facility] | | | | | Procedures | [place], [place] | for Health | | | | | CONSULT TO | [address] | and Healing, | | | | | PAIN | Phone: | Building | | | | | MANAGEMENT | [phone] | 1,15th Floor | | | | | | Fax: | [place], [place] | | | | | | [phone] | [address] | | | | | | | Phone: | | | | | | | [phone] | | | | | | | Fax: | | | | | | | [phone] | + +---------+ + + + + Encounter Details +--------+ + + + + | Date | Type | Department | Care Team | Description | +--------+ + + + + | 03/10/ | MyChart | Digestive Health | Duy Kat, | Next Appt. | | 2019 | Encounter | [place] [facility] [address] | [address] | | | | | [address] | [facility] | | | | | Mailcode: [place] | [place], [place] | | | | | [facility] and | [address] | | | | | [facility] 2 | [phone] | | | | | [place], [place] | | | | | | [address] | | | | | | [phone] | | | +--------+ + + + [...]
--- OUTSIDE RECORDS SUMMARY | ~2019-07-31 | XMS | Encounter Summary ---
Demographics + + + | Address | [address] | | | [place] [address] | + + + | Home Phone [...] [place] | | | | | [address] | | + + + + + Care Team Providers + +------+ + | Care Heat And Frost Insulator Name | Role | Phone | + [...] | | 2018 | | Center at [facility] [address] | [address] [facility] | pancreatitis (HCC) | | | | [address] | [address] | | | | | Mailcode: Center | [place], [place] | | | | | for Health and | [address] | | | | | Healing, Building 2 | [phone] | | | | | [place], [place] | | | | | | [address] | | | | | | [phone] | | | +--------+ + + + [...] | | LAB | | | | [place] [address] | | | | | | | [...]
--- OUTSIDE RECORDS SUMMARY | ~2019-07-31 | XMS | Encounter Summary ---
Demographics + + + | Address | [address] | | | [place] [address] | + + + | Home Phone [...] [place] | | | | | [address] | | + + + + + Care Team Providers + +------+ + | Care Auto Washer Name | Role | Phone | [...] + + | 04/09/ | Hospital | [address] | Taiwo Tilley, | | | 2018 - | Encounter | [facility] | [address] [place] [address] | | | | | [facility] | [facility] | | | 04/10/ | | [place], [place] | [place], [place] | | | 2017 | | [address] | [address] | | | | | [phone] | [phone] | | | | | | | | | | | | Laurence Barboza MD | | | | | | [address] | | | | | | [facility] | | | | | | [place], [place] | | | | | | [address] | | | | | | [phone] | | | | | | | | | | | | Amado Roger, | | | | | | [address] | | | | | | [facility] [address]rell | | | | | | [place], [place] | | | | | | [address] | | | | | | [phone] | | | | | | | [...] Roger MD - 04/10/2017 7:[address] [facility] Discharge Summary Discharging Provider: Amado Roger MD Discharging Attending Physician: Amado Roger MD PCP: Filippo Chen DO Admission Date: 04/09/2017 Discharge Date: 04/10/17 Hospital Stay: 1 day(s) Reason for Admission: 51 yo man with hx of obesity, seizures, VIKTORIA on BiPAP who has had 6 months of abdominal pain , weight loss (30 lbs), dysphagia/sore throat who was referred to [facility] for ERCP and under went [...] upon disco ntinue. Meloxicam Diarrhea Bowel incontinence Fmfyjxc-Ezn-Kyl Reductase Inhibitors Seizures Increased frequency of seizures, [...] focal neuro deficits Amado Roger MD, MSc Candle Wrapping Machine Operatorautomotive leasing sales representative Clinical Hospitalist and Medicine Teaching Services [facility] Pager: [phone] documented in this encounter Discharge Instructions Instructions [...] hours or on weekends and holiday Hospital Employee Wellness/Fitness Coordinator toll free [phone]. [phone] and have the GI doctor airway controller paged. The provider who performed your procedure: [...] + +--------+ + + + | NON DECORATING CONSULTANT CYTOLOGY | Routin | 04/09/2017 | | [...] + | MRN: | [facility] | | [id number] Date: 04/09/2017Patient Name: Daysi Cook #: | ENDOSCOPY | | [id number] of : 1965CSN: [id number] Type: | | | AmbulatoryRoom: GI 3Procedure: Upper EUSIndications: | | | Abnormal ultrasound of the abdomenProviders: | | | TAIWO TILLEY MD (Doctor), LUIS A MAYES RN (Nurse), | | | JYOTI RODRIGUEZ Sole Layer Hand (Sole Layer Hand)Referring MD: | | | TAIWO TILLEY MDRequesting [...] the procedure. | | | The Olympus [id number] AL5 Linear Echoendoscope #[id number] | | | was introduced through the mouth, and advanced | | | to the second part of duodenum. The | | | Olympus [id number] Endoscope #[id number] | | | was introduced through the [...] stylet | | | was used. A prepared foods associate was present and performed a preliminary | [...] Initiated On: | | | 04/09/2017 1:07 [facility] Letter to: FILIPPO CHEN DO | [...] | | + +---------+ + + NON DECORATING CONSULTANT CYTOLOGY (04/09/2017) + + + + + + | Component | Value | Ref Range | Performed | Pathologist | | | | | At | Signature | + + + + + + | NON-DECORATING CONSULTANT | SOURCE OF SPECIMEN:A | | [facility] [...] reviewed | | | | | | by:Antohny Soares, | | | | | | [...] + + + + + | [facility] | [address] | [place] [address] | | | PATHOLOGY | [address] [...] medicalrecord | | | | | | #[id number]. A. | | | | | | [...] + + + + + | [facility] | [address] | [place] [address] | | | PATHOLOGY | [address] [...]
--- OUTSIDE RECORDS SUMMARY | ~2019-07-31 | XMS | Encounter Summary ---
Demographics + + + | Address | [address] | | | [place] [address] | + + + | Home Phone [...] + + + | Author | [facility] | + + + | Organization | [facility] | + + + | Address | Unknown | + + + | Phone | Unavailable | + + + Support + + + + + | Name | Relationship | Address | Phone | + + + + + | Christy Flaherty | ECON | [address] | | | | | [place] | | | | | [address] | | + + + + + Care Team Providers + +------+ + | Care Stone Polisher Hand Name | Role | Phone | [...] | | | | with complex | [place], [place] | [place] | | | | | partial | [address] | [address] | | | | | seizures, | Phone: | Phone: | | | | | intractable, | [phone] | [phone] | | | | | without | Fax: | Fax: | | | | | status | [phone] | [phone] | | | | | epilepticus | [...] | | intracranial | [address] | [place], [place] | | | | | structures | [place], | [address] | | | | | INS: [place] | [place] [address] | Phone: | | | | | | Phone: | [phone] | | | | | | [phone] | Fax: | | | | | | Fax: | [phone] | | | | | | [phone] | | +--------+ + + + + [...] | | | Ave Mailcode: [facility] | [facility] [place] | complex partial | | | | [facility] | [address] | seizures, | | | | and Healing, | [phone] | intractable, without | | | | Building [address] | | status epilepticus | | | | Floor [place], [place] | | [facility] (Primary Dx) | | | | [address] | | | | | | [phone] | | | +--------+---------+ + + + [...] to pinprick and light touch. Cerebellar: Normal glbmfp-nw-qivv, and rapid alternating movements. Gait: Normal. Tandem [...]
--- OUTSIDE RECORDS SUMMARY | ~2019-07-31 | XMS | Encounter Summary ---
Demographics + + + | Address | [address] | | | [place] [address] | + + + | Home Phone [...] [place] | | | | | [address] | | + + + + + Care Team Providers + +------+ + | Care Senior Systems Developer Name | Role | Phone | [...] MD | | | 2015 | | [place] [facility] & | [address] | | | | | Healing [address] | [place], [place] | | | | | Ave Mailcode: [facility] | [address] | | | | | [facility] | [phone] | | | | | and Healing, | | | | | | | | | | | | Floor [place], [place] | | | | | | [address] | | | | | | [phone] | | | +--------+ + + + [...]
--- OUTSIDE RECORDS SUMMARY | ~2019-07-31 | XMS | Encounter Summary ---
Demographics + + + | Address | [address] | | | [place] [address] | + + + | Home Phone [...] [place] | | | | | [address] | | + + + + + Care Team Providers + +------+ + | Care Unit Coordinator Name | Role | Phone | [...] | | | | | pancreatitis | [facility] | [facility] | | | | | (HCC) | Rd | Rd [place], | | | | | Procedures | [place], [place] | [place] | | | | | CONSULT TO | [address] | [address] | | | | | SURGERY - | Phone: | Phone: | | | | | GENERAL | [phone] | [phone] | | | | | | Fax: | Fax: | | | | | | [phone] | [phone] | + +--------+ + + + + [...] [address] | | | | | ([facility]) | [address] | Research | | | | | Procedures | [place], [place] | [place] | | | | | MR ABDOMEN W | [address] | [place], [place] | | | | | MRCP WITH | Phone: | [address] | | | | | SECRETIN WWO | [phone] | Phone: | | | | | IN MRI, | Fax: | [phone] | | | | | ABDOMEN, | [phone] | Fax: | | | | | COMBO IN 3D | | [phone] | | | | | RNDR W/O | | | | | | | PSTPRCSS | | | + +--------+ + + + + Encounter Details +--------+ + + + + | Date | Type | Department | Care Team | Description | +--------+ + + + + | 10/28/ | Grain Receiver | Digestive Health | Taiwo Tilley, | Idiopathic chronic | | 2019 | | Center at [facility] [address] | MD [address] [facility] | pancreatitis (HCC) | | | | [address] | [address] | (Primary Dx) | | | | Mailcode: Center | [place], [place] | | | | | for Health and | [address] | | | | | Healing, Building 2 | [phone] | | | | | [facility] [place] | | | | | | [address] | | | | | | [phone] | | | +--------+ + + + [...]
--- OUTSIDE RECORDS SUMMARY | ~2019-07-31 | XMS | Encounter Summary ---
Demographics + + + | Address | [address] | | | [place] [address] | + + + | Home Phone [...] [place] | | | | | [address] | | + + + + + Care Team Providers + +------+ + | Care Loan Interviewer Name | Role | Phone | + [...] | 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 | [facility] [address] | | | | | chronic | [address] | [address] | | | | | pancreatitis | [address] | Mailcode: | | | | | (HCC) | Rd | [facility] | | | | | Procedures | [place], [place] | for Health | | | | | [place] | [address] | and Healing, | | | | | MULTIPHASE | Phone: | Building 1, | | | | | PANCREAS AND | [phone] | 3rd Floor | | | | | PELVIS W IV | Fax: | [place], [place] | | | | | CONTRAST | [phone] | [address] | | | | | [place] | | Phone: | | | | | ABD&PELV 1+ | | [phone] | | | | | SECTION/REGN | | Fax: | | | | | S | | [phone] | +--------+--------+ + + + + Reason [...] | | | | | pancreatitis | [facility] | Mailcode: | | | | | (HCC) | Rd | [facility] | | | | | Procedures | [place], [place] | for Health | | | | | [place] | [address] | and Healing, | | | | | MULTIPHASE | Phone: | Building 1, | | | | | PANCREAS AND | [phone] | 3rd Floor | | | | | PELVIS W IV | Fax: | [place], [place] | | | | | CONTRAST | [phone] | [address] | | | | | [place] | | Phone: | | | | | ABD&PELV 1+ | | [phone] | | | | | SECTION/REGN | | Fax: | | | | | S | | [phone] | +--------+--------+ + + + + Encounter Details +--------+ + + + + | Date | Type | Department | Care Team | Description | +--------+ + + + + | 02/20/ | Hospital | Diagnostic Imaging | Duy Kat, | | | 2019 | Encounter | Services at [facility] | [address] | | | | | [address] | [address] | | | | | [address] | [place], [place] | | | | | [facility], 10th Floor | [address] | | | | | [place], [place] | [phone] | | | | | [address] | | | | | | [phone] | | | +--------+ + + + [...] tablets by | 330 | 3 | 11/13/20 | | | fxgwlo-uvqqwdii-xkim | mouth with meals and | tablet [...] capsule by | 90 | 3 | 11/13/20 | | | oral capsule,delayed | mouth [...]
--- OUTSIDE RECORDS SUMMARY | ~2019-07-31 | XMS | Encounter Summary ---
Demographics + + + | Address | [address] | | | [place] [address] | + + + | Home Phone [...] [place] | | | | | [address] | | + + + + + Care Team Providers + +------+ + | Care Power And Recovery Superintendent Name | Role | Phone | + +------+ + | Jarvis Willard MD | PCP | | + +------+ + Encounter Details +--------+ + + + + | Date | Type | Department | Care Team | Description | +--------+ + + + + | 04/26/ | Procedure | Radiology/Imaging | | | | 2018 | Pass | Lab at [facility] [address] | | | | [address] Mailcode: | | | | | | [facility] | | | | | | Health and Healing, | | | | | | [facility] | | | | | | Floor [place], [place] | | | | | | [address] | | | | | | [phone] | | | +--------+ + + + [...]
--- OUTSIDE RECORDS SUMMARY | ~2019-07-31 | XMS | Encounter Summary ---
Demographics + + + | Address | [address] | | | [place] [address] | + + + | Home Phone [...] [place] | | | | | [address] | | + + + + + | Christy Flaherty | ECON | [address] | | | | | [place] | | | | | [address] | | + + + + + Care Team Providers + +------+ + | Care Estate Agent Name | Role | Phone | + +------+ + | Juan Demarco MD | PCP | | + +------+ + Encounter Details +--------+ + + + + | Date | Type | Department | Care Team | Description | +--------+ + + + + | 01/18/ | Hospital | [facility] | Conversion | Diagnosis unknown | | 2017 | Encounter | CONVERSION [address] | Transaction, | | | | | [address] | Provider Unknown | | | | | [place] | [phone] | | | | | [address] | | | | | | [phone] | | | +--------+ + + + [...]
--- OUTSIDE RECORDS SUMMARY | ~2019-07-31 | XMS | Encounter Summary ---
Demographics + + + | Address | [address] | | | [place] [address] | + + + | Home Phone [...] [place] | | | | | [address] | | + + + + + Care Team Providers + +------+ + | Care Enrobing Machine Operator Name | Role | Phone | + +------+ + | Filippo Chen DO | PCP | | + +------+ + Reason for Referral Consultation (Urgent) +--------+--------+ + + + + | Status | Reason | Specialty | Diagnoses / | Referred By | Referred To | | | | | Procedures | Contact | Contact | +--------+--------+ + + + + | Closed | | Gastroenterol | Diagnoses | Enestvedt, | [employer] | | | | ogy | Pancreatic | Paras Jorge, | [address] | | | | | mass | MD [address] | | | | | Epigastric | Elias Fonseca | Mailcode: | | | | | pain | Jayshree Santillan | [place] [facility] | | | | | Elevated | [place], [place] | Health and | | | | | lipase | [address] | Healing, | | | | | Procedures | Phone: | Building 2 | | | | | CONSULT TO | [phone] | [facility] [place] | | | | | GASTROENTERO | Fax: | [address] | | | | | [place] | [phone] | Phone: | | | | | | | [phone] | | | | | | | Fax: | | | | | | | [phone] | +--------+--------+ + + + + Diagnostic [...] | | Pancreatic | Brintha K, | [address] | | | | | mass | MD [address] | | | | | Procedures | Elias Fonseca | Mailcode: | | | | | CT ABDOMEN | Jayshree Santillan | [facility] | | | | | WWO IV | [place], [place] | for Health | | | | | CONTRAST SC | [address] | and Healing, | | | | | CT SCAN OF | Phone: | Building 1, | | | | | ABDOMEN | [phone] | 3rd Floor | | | | | COMBO | Fax: | [place], [place] | | | | | | [phone] | [address] | | | | | | | Phone: | | | | | | | [phone] | | | | | | | Fax: | | | | | | | [phone] | +--------+--------+ + + + + Encounter Details +--------+ + + + + | Date | Type | Department | Care Team | Description | +--------+ + + + + | 02/24/ | Nuclear Medicine Pet Ct Technologist | Endoscopic | Paras Baker | Pancreatic mass | | 2017 | | Procedural Unit at | MD Ania [address] | (Primary Dx); | | | | [place] [address] | Epigastric pain; | | | | [address] | [facility], [place] | Elevated lipase | | | | Pr[place], | [address] | | | | | 4th floor [place], | [phone] | | | | | [place] [address] | | | | | | [phone] | | | +--------+ + + + [...] filedocumented as of this encounter Results CT ABDOMEN WWO IV CONTRAST (03/11/2017 11:16 AM [facility]) + + | Specimen | + + | | + + + + + | Narrative | Performed At | + + + | EXAM: Liver protocol CT of the abdomen with and without contrast. | [facility] | | HISTORY: Pancreatitis COMPARISON: 01/18/17 TECHNIQUE: | RADIOLOGY VOICE | | Unenhanced, arterial, portal venous and 4-minute delayed abdominal CT | RECOGNITION | | with 125mL Omnipaque 350 non-ionic intravenous contrast. Coronal and | | | sagittal reformats were reviewed. FINDINGS: LOWER THORAX: | | | Unremarkable. LIVER: Diffuse fatty infiltration of the liver | | | parenchyma there is no focal mass lesion. BILIARY: Unremarkable. | | | SPLEEN: Unremarkable. PANCREAS: Again identified is mild | | | peripancreatic inflammatory stranding without evidence of ductal [...] | | | + +---------+ + + OUTSIDE BODY - READ REQUEST (01/18/2017 12:00 [...] Note | + + | Service Account, [employer] - 02/25/2017 5:25 PM PST [...] + + | Pancreatic mass - Primary Unspecified disease of pancreas | + + | Epigastric pain Abdominal pain, epigastric | + + | Elevated lipase Other nonspecific abnormal serum enzyme levels | + + documented in this encounter"
--- OUTSIDE RECORDS SUMMARY | ~2019-07-31 | XMS | Encounter Summary ---
Demographics + + + | Address | [address] | | | [place] [address] | + + + | Home Phone [...] [place] | | | | | [address] | | + + + + + | Christy Flaherty | ECON | [address] | | | | | [place] | | | | | [address] | | + + + + + Care Team Providers + +------+ + | Care Life Educator Name | Role | Phone | + +------+ + | Juan Demarco MD | PCP | | + +------+ + Encounter Details +--------+ + + + + | Date | Type | Department | Care Team | Description | +--------+ + + + + | 01/21/ | Orders Only | [facility] | Conversion | | | 2014 | | INFECTIOUS DISEASE | Transaction, | | | | | [address] | Provider Unknown | | | | | [place], [place] | | | | | | [address] | (Fax) | | | | | [phone] | | | +--------+ + + + [...] | EXTERNAL LAB: CBC | Routin | 01/21/2015 | | Results for this | | | e | 12:00 AM | | procedure are in the | | | | PDT | | results section. | + +--------+ + + + | ANTISTREPTOLYSIN O, | Routin | 01/21/2015 | | Results for this | | QUANT | e | 12:00 AM | | procedure are in the | | | | PDT | | results section. | + +--------+ + + + | C-REACTIVE PROTEIN | Routin | 01/21/2015 | | Results for this | | | e | 12:00 AM | | procedure are in the | | | | PDT | | results section. | + +--------+ + + + | COMPREHENSIVE | Routin | 01/21/2015 | | Results for this | | METABOLIC PANEL | e | 12:00 AM | | procedure are in the | | | | PDT | | results section. | + +--------+ + + + documented in this encounter Results Antistreptolysin O, Quant (01/21/2015 12:00 AM PDT) + +---------+ + + + | Component | Value | Ref Range | Performed | Pathologist | | | | | At | Signature | + +---------+ + + + | Anti | 383 (A) | 0 - 250 | EXTERNAL [...] + +---------+ + + External Lab: CBC (01/21/2015 12:00 AM PDT) + +-------+ + + + | Component | Value | Ref Range | Performed | Pathologist | | | | | At | Signature | + +-------+ + + + | WBC | 5.5 | 10 | EXTERNAL | | | | | | LAB | | + +-------+ + + + | Red Blood | 5.19 | 10 | EXTERNAL | | | Cells | | | LAB | | | Counted | | | | | + +-------+ + + + | Hemoglobin | 15.6 | g/dL | EXTERNAL | | | | | | LAB | | + +-------+ + + + | Hematocrit, | 47.0 | % | EXTERNAL | | | [...] +-------+ + + + | Platelet | 166 | K/ L | EXTERNAL | | | Count | | | LAB | | | Plasma | | | | | + +-------+ + + + | RDW-CV | 12.9 | % | EXTERNAL | | | [...] + + + | % Segmented | 44.7 | % | EXTERNAL | | | | | | LAB | | | Neutrophils | | | | | + +-------+ + + + | % | 39.6 | % | EXTERNAL | | | Lymphocytes | | | LAB | | + +-------+ + + + | % Monocytes | 11.6 | % | EXTERNAL | | | | | | LAB | | + +-------+ + + + | % | 3.1 | % | EXTERNAL | | | Eosinophils | | | LAB | | + +-------+ + + + | % Basophils | 1.0 | % | EXTERNAL | | | [...] | + +---------+ + + C-Reactive Protein (01/21/2015 12:00 AM PDT) + + + + [...] + +---------+ + + Comprehensive Metabolic Panel (01/21/2015 12:00 AM PDT) + +---------+ + + + | Component | Value | Ref Range | Performed | Pathologist | | | | | At | Signature | + +---------+ + + + | Glucose, | 122 (A) | 70 - 100 mg/dL | EXTERNAL | | | Fasting | | | LAB | | + +---------+ + + + | BUN | 19 | mg/dL | EXTERNAL | | | | | | LAB | | + +---------+ + + + | Creatinine | 0.92 | mg/dL | EXTERNAL | | | | | | LAB | | + +---------+ + + + | BUN/Creatin | 20.7 | | EXTERNAL | | | ine Ratio | | | LAB | | + +---------+ + + + | Calcium | 8.4 | mg/dL | EXTERNAL | | | | | | LAB | | + +---------+ + + + | Protein, | 6.2 | g/dL | EXTERNAL | | | Total | | | LAB | | + +---------+ + + + | Albumin | 4.0 | | EXTERNAL | | | | | | LAB | | + +---------+ + + + | Globulin | 2.2 [...] +---------+ + + + | ALP, | 68 | | EXTERNAL | | | External | | | LAB | | + +---------+ + + + | ALT | 15 | U/L | EXTERNAL | | | | | | LAB | | + +---------+ + + + | AST | 15 | U/L | EXTERNAL | | | [...] +---------+ + + + | Cl | 103 [...] +---------+ + + + | Estimated | 87 | mg/dL | EXTERNAL | | | [...]
--- OUTSIDE RECORDS SUMMARY | ~2019-07-31 | XMS | Encounter Summary ---
Demographics + + + | Address | [address] | | | [place] [address] | + + + | Home Phone | | + + + | Preferred Language | Unknown | + + + | Marital Status | | + + + | Roman Catholic Affiliation | ASG | + + [...] [place] | | | | | [address] | | + + + + + Care Team Providers + +------+ + | Care Elevator Mechanic Name | Role | Phone | [...] To Surgery | | 2017 | | [facility] [address] | | - General | | | | [address] | | | | | | Mailcode: [place] | | | | | | for Health and | | | | | | [facility] | | | | | | [place], [place] | | | | | | [address] | | | | | | [phone] | | | +--------+ + + + [...]
--- OUTSIDE RECORDS SUMMARY | ~2019-07-31 | XMS | Encounter Summary ---
Demographics + + + | Address | [address] | | | [place] [address] | + + + | Home Phone | | + + + | Preferred Language | Unknown | + + + | Marital Status | | + + + | Mu-Ism Affiliation | 1061 | + + + [...] [place] | | | | | [address] | | + + + + + | Christy Grande | ECON | [address] | | | | | [place] | | | | | [address] | | + + + + + Care Team Providers + +------+ + | Care Grooming Salon Manager Name | Role | Phone | [...] | | | | [address] | [place] [address] | | | | | [place], [place] | [phone] | | | | | [address] | | | | | | [phone] | | | +--------+ + + + [...] TR maxP.42 mmHg TR Vmax: 2.14 m/s Client Development Manager: | | | DH Authenticated by: Jb Mendiola MD, FACC, FACP, FASNC Report | | | Date/Time: -- | | + + + + + | Procedure Note | + + | Kj Rad Conversion - 11/18/2018 11:06 AM PDT Patient Name: Jen GRANDE of | | : 1965 Performing Physician: Jb Mendiola MD, [facility], | | FACP, | | FASNC [...] cmLVIDd: 4.72 cmLVPWd: 0.95 cmLVOT Area: 3.61 iv3KIIV Diam: 2.14 cm%FS: | | 34.35 %EF(Teich): [...] (A-L): 19.71 | | ml/m2LAAs A2C: 16.72 [id number] A-L A2C: 48.44 mlLALs A2C: 4.90 cmLAAs A4C: 15.56 | | qc1KUVXI A-L A4C: 42.18 mlLALs A4C: 4.87 cmRAAs: 13.91 ki9NANVB A-L: 36.69 | | mlRAESV MOD: 36.63 mlRALs: 4.47 cmAo Diam: 3.87 cmLA Diam: 4.22 cmLA/Ao: | | 1.08AV maxP.50 mmHgAV meanP.02 mmHgAV Vmax: 1.96 m/Stormy Vmean: 1.40 | | m/Stormy VTI: 37.37 cmAVA Vmax: 1.63 cm2AVA (VTI): 1.93 rg7JEXP (Vmax): 0.00 | | cm2/m2AVAI (VTI): 0.00 cm2/m2LVOT maxP.19 mmHgLVOT meanP.89 mmHgLVSI Dopp: | | 31.44 ml/m2LVSV Dopp: 72.32 mlLVOT Vmax: 0.89 m/sLVOT Vmean: 0.64 m/sLVOT VTI: | | 20.03 cmMV A George: 0.47 m/sMV DecT: 222.02 msMV E George: 0.56 m/sMV E/A Ratio: | | 1.19MV PHT: 64.38 msMVA By PHT: 3.41 uc7Iyiqrf e': 0.07 m/sSeptal E/e': | | 7.38Lateral e': 0.10 m/sLateral E/e': 5.45RAP: 5 mmHgRVSP: 23.42 mmHgTR maxPG: | | 18.42 mmHgTR Vmax: 2.14 m/s Client Development Manager: DHAuthenticated by: Jb Mendiola MD, FACC, | [...] |TR Vmax: 2.14 m/s | | | |Client Development Manager: | |Authenticated by: Jb Mendiola MD, FACC, [...]
--- OUTSIDE RECORDS SUMMARY | ~2019-07-31 | XMS | Encounter Summary ---
Demographics + + + | Address | [address] | | | [place] [address] | + + + | Home Phone | | + + + | Preferred Language | Unknown | + + + | Marital Status | | + + + | Adventist Affiliation | 1061 | + + + | Race | Unknown | + + + | Ethnic Group | Unknown | + + + Author + + + | Author | [facility] | | | and [place] | + + + | Organization | [facility] | | [...] [place] | | | | | [address] | | + + + + + | Christy Flaherty | ECON | [address] | | | | | [place] | | | | | [address] | | + + + + + Care Team Providers + +------+ + | Care Sandwich Board Carrier Name | Role | Phone | + +------+ + | Juan Demarco MD | PCP | | + +------+ + Encounter Details +--------+ + + + + | Date | Type | Department | Care Team | Description | +--------+ + + + + | 03/04/ | Orders Only | [facility] | Conversion | | | 2014 | | INFECTIOUS DISEASE | Transaction, | | | | | [address] | Provider Unknown | | | | | [place], [place] | | | | | | [address] | (Fax) | | | | | [phone] | | | +--------+ + + + [...]
--- OUTSIDE RECORDS SUMMARY | ~2019-07-31 | XMS | Clinical Summary ---
Demographics + + + | Address | [address] | | | [place] [address] | + + + | Home Phone [...] [place] | | | | | [address] | | + + + + + Care Team Providers + +------+ + | Care Broach Grinder Name | Role | Phone | + +------+ + | Jarvis Willard MD | PCP | | + +------+ + Source Comments ANALI is fully live on both [facility] Ambulatory and [facility] InPatient.[facility] Allergies + + + + + [...] + + + + + + | Uxsimuf-Khs-Vcu | Seizures | | 12/17/19 | Increased [...] | 01/27 | | Activ | | fqejzm-wbqjicna-ommx | mouth with meals and | tablet [...] + + + + | 05/12/ | Bleach Liquor Maker | Endocrinology | Maryana Edmonds MD | [...] | | | + +--------+ +--------+-------+---------+--------+ | [employer] | [employer] | xxxxxxxx | 08/03/19 | | | [...] | 1966 | [phone] | [place] [address] | | | eladio | | | [...]
--- OUTSIDE RECORDS SUMMARY | ~2019-07-31 | XMS | Encounter Summary ---
Demographics + + + | Address | [address] | | | [place] [address] | + + + | Home Phone [...] [place] | | | | | [address] | | + + + + + Care Team Providers + +------+ + | Care Intrusion Analyst Name | Role | Phone | [...] | | | | | | [address] [place], [place] | | | | | | [address] | | | | | | [phone] | | | +--------+ + + + [...] perfume, lotions or powder. Remove any nail kinyarwanda from at least one fingernail. Do not [...] Time: Someone from your surgeon's office or [facility] will provide you with information regarding your [...] it is after office hours, call the [facility] operator electronic warfare at [phone] and ask them to page your doc tor. documented in this encounter Plan of Treatment Not on filedocumented as of this encounter Visit Diagnoses Not on filedocumented in this encounter"
--- OUTSIDE RECORDS SUMMARY | ~2019-07-31 | XMS | Encounter Summary ---
Demographics + + + | Address | [address] | | | [place] [address] | + + + | Home Phone | | + + + | Preferred Language | Unknown | + + + | Marital Status | | + + + | Anabaptism Affiliation | 1061 | + + + | Race | Unknown | + + + | Ethnic Group | Unknown | + + + Author + + + | Author | [facility] | | | and [place] | + + + | Organization | [facility] | | [...] [place] | | | | | [address] | | + + + + + | Christy Grande | ECON | [address] | | | | | [place] | | | | | [address] | | + + + + + Care Team Providers + +------+ + | Care Contract Associate Name | Role | Phone | + +------+ + | Juan Demarco MD | PCP | | + +------+ + Encounter Details +--------+ + + + + | Date | Type | Department | Care Team | Description | +--------+ + + + + | 02/24/ | Emergency | [facility] | Azar Herron | Idiopathic acute | | 2017 | | [facility] | MD Michael [address] | pancreatitis without | | | | [facility] | [place], [place] | infection or | | | | [address] | [address] | necrosis | | | | [place], [place] | [phone] | | | | | [address] | | | | | | [phone] | | | +--------+ + + + [...] Performed At | + + + | DAYSI GRANDE [address] ABDOMEN [...] Rad Conversion - 11/10/2018 1:54 AM PDT DAYSI GRANDE years MaleCT | | ABDOMEN PELVIS WO UVXCQZAL05/29/2017 11:28 AM INDICATION: Abdominal pain. Possible | [...] - 1.035 | EXTERNAL | | | [place], | | | LAB | | | [...] | | | Urine | performed at [facility], [address] | | LAB | | | | [address], | | | | | | [place] [address] | | | | + + + [...] + + + | Red Blood | 5.51 | 4.20 - 5.70 | EXTERNAL | | | Cells | | M/uL | LAB | | | Counted | | | | | + + + + + + | Hemoglobin | 16.5 | 13.2 - 17.0 | [...] | | | Basophils | performed at [facility], [address] | K/uL | LAB | | | | [address], | | | | | | [place] [address] | | | | + + + [...] EXTERNAL | | | | performed at [facility], [address] | | LAB | | | | [address], | | | | | | [place] [address] | | | | + + + [...] EXTERNAL | | | | performed at [facility], [address] | | LAB | | | | [address], | | | | | | [place] [address] | | | | + + + [...] | | | | | | at [facility], [address] | | | | | | [address] [place] [place] | | | | | | [address] | | | | + + + [...]
--- OUTSIDE RECORDS SUMMARY | ~2019-07-31 | XMS | Encounter Summary ---
Demographics + + + | Address | [address] | | | [place] [address] | + + + | Home Phone | | + + + | Preferred Language | Unknown | + + + | Marital Status | | + + + | Confucianist Affiliation | 1061 | + + + | Race | Unknown | + + + | Ethnic Group | Unknown | + + + Author + + + | Author | [facility] | | | and [place] | + + + | Organization | [facility] | | | [...] [place] | | | | | [address] | | + + + + + | Christy Flaherty | ECON | [address] | | | | | [place] | | | | | [address] | | + + + + + Care Team Providers + +------+ + | Care Screener And Blender Name | Role | Phone | + +------+ + | Juan Demarco MD | PCP | | + +------+ + Encounter Details +--------+ + + + + | Date | Type | Department | Care Team | Description | +--------+ + + + + | 06/23/ | Orders Only | [facility] | Conversion | | | 2016 | | INFECTIOUS DISEASE | Transaction, | | | | | [address] | Provider Unknown | | | | | [place], [place] | | | | | | [address] | (Fax) | | | | | [phone] | | | +--------+ + + + [...] | EXTERNAL LAB: CBC | Routin | 06/23/2016 | | Results for this | | | e | 12:00 AM | | procedure are in the | | | | PDT | | results section. | + +--------+ + + + | SEDIMENTATION RATE, | Routin | 06/23/2016 | | Results for this | | AUTOMATED | e | 12:00 AM | | procedure are in the | | | | PDT | | results section. | + +--------+ + + + | C-REACTIVE PROTEIN | Routin | 06/23/2016 | | Results for this | | | e | 12:00 AM | | procedure are in the | | | | PDT | | results section. | + +--------+ + + + | COMPREHENSIVE | Routin | 06/23/2016 | | Results for this | | METABOLIC PANEL | e | 12:00 AM | | procedure are in the | | | | PDT | | results section. | + +--------+ + + + documented in this encounter Results Sedimentation rate, automated (06/23/2016 12:00 AM PDT) + +-------+ + + [...] + +---------+ + + External Lab: CBC (06/23/2016 12:00 AM PDT) + + + + + + | Component | Value | Ref Range | Performed | Pathologist | | | | | At | Signature | + + + + + + | WBC | 5.9 | 4.5 - 11.0 10 | EXTERNAL | | | | | | LAB | | + + + + + + | Red Blood | 5.19 | 4.3 - 5.7 10 | EXTERNAL | | | Cells | | | LAB | | | Counted | | | | | + + + + + + | Hemoglobin | 16.6 | 13.5 - 18.0 | EXTERNAL | | | | | g/dL | LAB | | + + + + + + | Hematocrit, | 48.8 | 41 - 50 % | EXTERNAL | | | POC | | | LAB | | + + + + + + | MCV | 94.0 | 81 - 99 fL | EXTERNAL | | | | | | LAB | | + + + + + + | MCH | 32 | 27 - 33 pg | EXTERNAL | | | | | | LAB | | + + + + + + | MCHC | 34 | 30 - 36 g/dL | EXTERNAL | | | | | | LAB | | + + + + + + | Platelet | 172 | 140 - 440 K/ L | EXTERNAL | | | Count | | | LAB | | | Plasma | | | | | + + + + + + | RDW-CV | 13.1 | 10.5 - 15.0 % | EXTERNAL [...] + + + | % Segmented | 44.1 | 39 - 80 % | EXTERNAL | | | | | | LAB | | | Neutrophils | | | | | + + + + + + | % | 46.2 (A) | 24 - 44 % | EXTERNAL | | | Lymphocytes | | | LAB | | + + + + + + | % Monocytes | 8.2 | 0 - 12 % | EXTERNAL | | | | | | LAB | | + + + + + + | % | 1.1 | 0 - 6 % | EXTERNAL [...] | + +---------+ + + C-Reactive Protein (06/23/2016 12:00 AM PDT) + +---------+ + + + | Component | Value | Ref Range | Performed | Pathologist | | | | | At | Signature | + +---------+ + + + | CRP | 9.0 (A) | 0 - 5 mg/dL | [...] + +---------+ + + Comprehensive Metabolic Panel (06/23/2016 12:00 AM PDT) + +-------+ + + + | Component | Value | Ref Range | Performed | Pathologist | | | | | At | Signature | + +-------+ + + + | Glucose, | 83 | 70 - 100 mg/dL | EXTERNAL | | | Fasting | | | LAB | | + +-------+ + + + | BUN | 15 | 6 - 23 mg/dL | EXTERNAL | | | | | | LAB | | + +-------+ + + + | Creatinine | 1.00 | 0.70 - 1.33 | EXTERNAL | | | | | mg/dL | LAB | | + +-------+ + + + | BUN/Creatin | 15.0 | 6.0 - 28.6 | EXTERNAL | | | ine Ratio | | | LAB | | + +-------+ + + + | Calcium | 9.5 | 8.4 - 10.2 | EXTERNAL | | | | | mg/dL | LAB | | + +-------+ + + + | Protein, | 6.7 | 6.0 - 8.0 g/dL | EXTERNAL | | | Total | | | LAB | | + +-------+ + + + | Albumin | 4.4 | 3.5 - 5.0 | EXTERNAL | | | | | | LAB | | + +-------+ + + + | Globulin | 2.3 | 1.8 - 3.5 | EXTERNAL | | | | | | LAB | | + +-------+ + + + | A/G Ratio | 1.9 | 1.1 - 2.4 | EXTERNAL | | | | | | LAB | | + +-------+ + + + | Bilirubin | 0.5 | 0.0 - 1.2 mg/dL | EXTERNAL | | | Total | | | LAB | | + +-------+ + + + | ALP, | 68 | 31 - 120 | EXTERNAL | | | External | | | LAB | | + +-------+ + + + | ALT | 28 | 7 - 52 U/L | EXTERNAL | | | | | | LAB | | + +-------+ + + + | AST | 20 | 13 - 39 U/L | EXTERNAL | | | | | | LAB | | + +-------+ + + + | Na | 141 | 132 - 143 | EXTERNAL | | | | | mmol/L | LAB | | + +-------+ + + + | K | 4.6 | 3.6 - 5.1 | EXTERNAL | | | | | mmol/L | LAB | | + +-------+ + + + | Cl | 103 | 95 - 112 mmol/L | EXTERNAL | | | | | | LAB | | + +-------+ + + + | CO2 | 24 | 19 - 31 mmol/L | EXTERNAL | | | | | | LAB | | + +-------+ + + + | Anion Gap | 18.6 | 7 - 21 mmol/L | EXTERNAL | | | | | | LAB | | + +-------+ + + + | Estimated | 78 | 60 mg/dL | EXTERNAL | | [...]
--- OUTSIDE RECORDS SUMMARY | ~2019-07-31 | XMS | Encounter Summary ---
Demographics + + + | Address | [address] | | | [place] [address] | + + + | Home Phone | | + + + | Preferred Language | Unknown | + + + | Marital Status | | + + + | Congregation Affiliation | 1061 | + + + | Race | Unknown | + + + | Ethnic Group | Unknown | + + + Author + + + | Author | [facility] | | | and [place] | + + + | Organization | [facility] | | [...] [place] | | | | | [address] | | + + + + + | Christy Flaherty | ECON | [address] | | | | | [place] | | | | | [address] | | + + + + + Care Team Providers + +------+ + | Care Middle School Guidance Counselor Name | Role | Phone | + +------+ + | Juan Demarco MD | PCP | | + +------+ + Encounter Details +--------+ + + + + | Date | Type | Department | Care Team | Description | +--------+ + + + + | 01/22/ | Orders Only | [facility] | Conversion | | | 2016 | | INFECTIOUS DISEASE | Transaction, | | | | | [address] | Provider Unknown | | | | | [place], [place] | | | | | | [address] | (Fax) | | | | | [phone] | | | +--------+ + + + [...]
--- OUTSIDE RECORDS SUMMARY | ~2019-07-31 | XMS | Encounter Summary ---
Demographics + + + | Address | [address] | | | [place] [address] | + + + | Home Phone [...] [place] | | | | | [address] | | + + + + + | Christy Flaherty | ECON | [address] | | | | [place] | | | | | [address] | | + + + + + Care Team Providers + +------+ + | Care Senior [employer] Network Engineer Name | Role | Phone | [...] + + | 02/02/ | Telephone | [facility] | Carlos Morales MD | Referral | | 2017 | | GASTROENTEROLOGY | [address], [place] | | | | | [address] [place] | [address] [place], [place] | | | | | [address] [place] | [address] | | | | | [address] | | | | | | [phone] | | | +--------+ + + + [...]
--- OUTSIDE RECORDS SUMMARY | ~2019-07-31 | XMS | Encounter Summary ---
Demographics + + + | Address | [address] | | | [place] [address] | + + + | Home Phone [...] [place] | | | | | [address] | | + + + + + Care Team Providers + +------+ + | Care Network Administrator Name | Role | Phone | + [...] | | pancreatitis | Raymundo Jyashree | [place] | | | | | ([facility]) | Rd | [address] | | | | | Procedures | [place], [place] | floor | | | | | CONSULT TO | [address] | [place], [place] | | | | | GI PROCEDURE | Phone: | [address] | | | | | UNIT: EUS | [phone] | Phone: | | | | | LIMITED CA | Fax: | [phone] | | | | | ANESTH UPPER | [phone] | Fax: | | | | | GI | | [phone] | | | | | ENDOSCOPIC | | | | | | | VISUALIZE | | | | | | | CA UPPR GI | | | | | [...] | | | ogy | Pancreatic | Arturarina Jorge, | [address] | | | | | mass | MD [address] | | | | | Epigastric | Elias Raymundo | Mailcode: | | | | | pain | [address] | Center for | | | | | Elevated | [place], [place] | Health and | | | | | lipase | [address] | Healing, | | | | | Procedures | Phone: | Building 2 | | | | | CONSULT TO | [phone] | [facility] [place] | | | | | GASTROENTERO | Fax: | [address] | | | | | [place] | [phone] | Phone: | | | | | | | [phone] | | | | | | | Fax: | | | | | | | [phone] | +--------+--------+ + + + + Encounter Details +--------+---------+ + + + | Date | Type | Department | Care Team | Description | +--------+---------+ + + + | 03/11/ | Office | Digestive Health | Taiwo Tilley, | Idiopathic chronic | | 2017 | Visit | [place] [facility] [address]85 | [address] [facility] | pancreatitis (HCC) | | | | Ivy Cabrera | [address] | (Primary Dx) | | | | Mailcode: Center | [place], [place] | | | | | for Health and | [address] | | | | | [facility] 2 | [phone] | | | | | [place], [place] | | | | | | [address] | | | | | | [phone] | | | +--------+---------+ + + + [...] be different fro m the original. [facility] Patient Name: Daysi Flaherty MR#: [id number] : 1965 This is a 51 y/o [...] in the last one years. His weight [facility] is 236. On one or two occasion [...] 6 week with no resolution. He has Greenlee 1 stools. He is non-smoker (ex-smoker) and [...] upon disco ntinue. Meloxicam Diarrhea Bowel incontinence Tgahujf-Cyl-Vyq Reductase Inhibitors Seizures Increased frequency of seizures, [...] Miralax 17 gm PO bid. Husam Jefferson Md - 03/11/2017 12:50 PM PST documented in this encounter Plan of Treatment Not on filedocumented as of this encounter Visit Diagnoses + + | Diagnosis | + + | Idiopathic chronic pancreatitis (HCC) - Primary | + + documented in this encounter
--- OUTSIDE RECORDS SUMMARY | ~2019-07-31 | XMS | Encounter Summary ---
Demographics + + + | Address | [address] | | | [place] [address] | + + + | Home Phone [...] + | Author | [facility] | | | and [place] | + + + | Organization | [facility] | | | and [...] [place] | | | | | [address] | | + + + + + | Christy Flaherty | ECON | [address] | | | | | [place] | | | | | [address] | | + + + + + Care Team Providers + +------+ + | Care Multiple Needle Stitcher Name | Role | Phone | + +------+ + | Juan Demarco MD | PCP | | + +------+ + Encounter Details +--------+ + + + + | Date | Type | Department | Care Team | Description | +--------+ + + + + | 01/08/ | Hospital | [facility] | Conversion | Rheumatic fever; | | 2014 | Encounter | CENTER CV [facility]TRA OP | Transaction, | Aortic valve | | | | [address] | Provider Unknown | disorder | | | | [place], [place] | [phone] | | | | | [address] | | | | | | [phone] | Jb Mendiola MD | | | | | | [address] | | | | | | [place] [address] | | | | | | [phone] | | | | | | | [...] 01/08/151046 Date of Service: 01/08/151042 Status: Signed Wagon Driller: Bolivar Pemberton RN (Registered Nurse) Pt tolerated [...]
--- OUTSIDE RECORDS SUMMARY | ~2019-07-31 | XMS | Encounter Summary ---
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 | [address] | [address] | | | | | pancreatitis | [address] | Mailcode: | | | | | (HCC) | Rd | [facility] | | | | | Procedures | [place], [place] | for Health | | | | | [place] | [address] | and Healing, | | | | | MULTIPHASE | Phone: | Building 1, | | | | | PANCREAS AND | [phone] | 3rd Floor | | | | | PELVIS [address] IV | Fax: | [place], [place] | | | | | CONTRAST | [phone] | [address] | | | | | [place] | | Phone: | | | | | ABD&PELV 1+ | | [phone] | | | | | SECTION/REGN | | Fax: | | | | | S | | [phone] | +--------+--------+ + + + + Reason [...] | | | | | pancreatitis | [facility] | Mailcode: | | | | | (HCC) | Rd | [facility] | | | | | Procedures | [place], [place] | for Health | | | | | [place] | [address] | and Healing, | | | | | MULTIPHASE | Phone: | Building 1, | | | | | PANCREAS AND | [phone] | 3rd Floor | | | | | PELVIS [address] IV | Fax: | [place], [place] | | | | | CONTRAST | [phone] | [address] | | | | | [place] | | Phone: | | | | | ABD&PELV 1+ | | [phone] | | | | | SECTION/REGN | | Fax: | | | | | S | | [phone] | +--------+--------+ + + + + Encounter Details +--------+ + + + + | Date | Type | Department | Care Team | Description | +--------+ + + + + | 02/20/ | Hospital | Diagnostic Imaging | Duy Kat, | | | 2019 | Encounter | Services at [facility] | [address] | | | | | [address] | [address] | | | | | Jayshree BRIONES | [place], [place] | | | | | [facility], 10th Floor | [address] | | | | | [place], [place] | [phone] | | | | | [address] | | | | | | [phone] | | | +--------+ + + + [...] | 3 | 11/13/20 | | | vihanw-buhfzpji-igjq | mouth with meals and | tablet [...]
--- OUTSIDE RECORDS SUMMARY | ~2019-07-31 | XMS | Encounter Summary ---
Demographics + + + | Address | [address] | | | [place] [address] | + + + | Home Phone | | + + + | Preferred Language | Unknown | + + + | Marital Status | | + + + | Taoist Affiliation | 1061 | + + + | Race | Unknown | + + + | Ethnic Group | Unknown | + + + Author + + + | Author | [facility] | | | and [place] | + + + | Organization | [facility] | | [...] [place] | | | | | [address] | | + + + + + | Christy Flaherty | ECON | [address] | | | | | [place] | | | | | [address] | | + + + + + Care Team Providers + +------+ + | Care Cartoon Animator Name | Role | Phone | + +------+ + | Juan Demarco MD | PCP | | + +------+ + Encounter Details +--------+ + + + + | Date | Type | Department | Care Team | Description | +--------+ + + + + | 05/15/ | Orders Only | [facility] | Conversion | | | 2015 | | INFECTIOUS DISEASE | Transaction, | | | | | [address] | Provider Unknown | | | | | [place], [place] | | | | | | [address] | (Fax) | | | | | [phone] | | | +--------+ + + + [...]
--- OUTSIDE RECORDS SUMMARY | ~2019-07-31 | XMS | Encounter Summary ---
Demographics + + + | Address | [address] | | | [place] [address] | + + + | Home Phone | | + + + | Preferred Language | Unknown | + + + | Marital Status | | + + + | Sikhism Affiliation | ASG | + + + [...] [place] | | | | | [address] | | + + + + + Care Team Providers + +------+ + | Care Contact Printer Dry Film Name | Role | Phone | + [...] | | 2017 | | Center at [facility] [address] | MD Ania [address] [facility] | Received (02/24/2017 | | | | [address] | [address] | [place] A/PTigist [place] | | | | Mailcode: Center | [place], [place] | [facility]) | | | | for Health and | [address] | | | | | [place] [address] | [phone] | | | | | [place], [place] | | | | | | [address] | | | | | | [phone] | | | +--------+ + + + [...]
--- OUTSIDE RECORDS SUMMARY | ~2019-07-31 | XMS | Encounter Summary ---
Demographics + + + | Address | [address] | | | [place] [address] | + + + | Home Phone | | + + + | Preferred Language | Unknown | + + + | Marital Status | | + + + | Jew Affiliation | 1061 | + + + [...] [place] | | | | | [address] | | + + + + + | Christy Flaherty | ECON | [address] | | | | | [place] | | | | | [address] | | + + + + + Care Team Providers + +------+ + | Care Fine Arts Packer Name | Role | Phone | + +------+ + | Juan Demarco MD | PCP | | + +------+ + Encounter Details +--------+ + + + + | Date | Type | Department | Care Team | Description | +--------+ + + + + | 11/19/ | Orders Only | [facility] | Rk Rodriguez DO | | | 2014 | | INFECTIOUS DISEASE | [address] | | | | | [address] | [place] [address] | | | | | [place], [place] | [phone] | | | | | [address] | | | | | | [phone] | | | +--------+ + + + [...] + | ANTISTREPTOLYSIN O, | Routin | 11/19/2014 | | Results for this | | QUANT | e | 12:00 AM | | procedure are in the | | | | PDT | | results section. | + +--------+ + + + | C-REACTIVE PROTEIN | Routin | 11/19/2014 | | Results for this | | | e | 12:00 AM | | procedure are in the | | | | PDT | | results section. | + +--------+ + + + documented in this encounter Results Antistreptolysin O, Quant (11/19/2014 12:00 AM PDT) + +---------+ + + + | Component | Value | Ref Range | Performed | Pathologist | | | | | At | Signature | + +---------+ + + + | Anti | 482 (A) | 0 - 250 IU/ml | [...] | + +---------+ + + C-Reactive Protein (11/19/2014 12:00 AM PDT) + + + + [...]
--- OUTSIDE RECORDS SUMMARY | ~2019-07-31 | XMS | Encounter Summary ---
Demographics + + + | Address | [address] | | | [place] [address] | + + + | Home Phone [...] [place] | | | | | [address] | | + + + + + Care Team Providers + +------+ + | Care Ferris Wheel Operator Name | Role | Phone | [...] | | | [address] | [place], [place] | | | | | [place], | [address] | | | | | 4th floor [place], | [phone] | | | | | [place] [address] | | | | | | [phone] | | | +--------+ + + + [...] + | MRN: | [facility] | | [id number] Date: 04/09/2017Patient Name: Daysi Cook #: | ENDOSCOPY | | [id number] of : 1965CSN: [id number] Type: | | | AmbulatoryRoom: GI 3Procedure: Upper EUSIndications: | | | Abnormal ultrasound of the abdomenProviders: | | | YANNI TILLEY MD (Doctor), LUIS A MAYES RN (Nurse), | | | JYOTI RODRIGUEZ, Blow Machine Tender Starch Spraying (Blow Machine Tender Starch Spraying)Referring MD: | | | YANNI TILLEY MDRequesting [...] the procedure. | | | The Olympus [id number] AL5 Linear Echoendoscope #[id number] | | | was introduced through the mouth, and advanced | | | to the second part of duodenum. The | | | Olympus [id number] Endoscope #[id number] | | | was introduced through the [...] stylet | | | was used. A director federal was present and performed a preliminary | [...] Initiated On: | | | 04/09/2017 1:07 [facility] Letter to: LISA PINON DO | | [...]
--- OUTSIDE RECORDS SUMMARY | ~2019-07-31 | XMS | Encounter Summary ---
Demographics + + + | Address | [address] | | | [place] [address] | + + + | Home Phone | | + + + | Preferred Language | Unknown | + + + | Marital Status | | + + + | Adventism Affiliation | 1061 | + + + [...] [place] | | | | | [address] | | + + + + + | Christy Flaherty | ECON | [address] | | | | | [place] | | | | | [address] | | + + + + + Care Team Providers + +------+ + | Care Extrusion Operator Name | Role | Phone | [...] [address] | | | | | [facility] [address] | [address]. | | | | | [place] | [place] [address] | | | | | [address] | | | | | | [phone] | | | +--------+ + + + [...]
--- OUTSIDE RECORDS SUMMARY | ~2019-07-31 | XMS | Encounter Summary ---
Demographics + + + | Address | [address] | | | [place] [address] | + + + | Home Phone [...] [place] | | | | | [address] | | + + + + + Care Team Providers + +------+ + | Care Terrazzo Tile Maker Name | Role | Phone | [...] Jayshree BRIONES | | | | | ([facility]) Left | Center for | Hospital, | | | | | upper | Health and | 10th Floor | | | | | quadrant | Healing, | [place], [place] | | | | | pain | Building 2 | [address] | | | | | Procedures | [place], [place] | Phone: | | | | | CT ABDOMEN | [address] | [phone] | | | | | [address] IV | Phone: | Fax: | | | | | CONTRAST [place] | [phone] | [phone] | | | | | CT SCAN OF | Fax: | | | | | | ABDOMEN | [phone] | | | | | | COMBO [...] | | | | | pancreatitis | [facility] | Mailcode: | | | | | (HCC) | Rd | [facility] | | | | | Procedures | [place], [place] | for Health | | | | | [place] | [address] | and Healing, | | | | | MULTIPHASE | Phone: | Building 1, | | | | | PANCREAS AND | [phone] | 3rd Floor | | | | | PELVIS W IV | Fax: | [place], [place] | | | | | CONTRAST | [phone] | [address] | | | | | [place] | | Phone: | | | | | ABD&PELV 1+ | | [phone] | | | | | SECTION/REGN | | Fax: | | | | | S | | [phone] | +--------+--------+ + + + + Encounter Details +--------+ + + + + | Date | Type | Department | Care Team | Description | +--------+ + + + + | 02/07/ | Body And Frame Technician | Digestive Health | Duy Kat, | Idiopathic chronic | | 2019 | | Center at [facility] [address] | [address] | pancreatitis (HCC) | | | | [address] | [address] | (Primary Dx); Left | | | | Mailcode: Center | [place], [place] | upper quadrant pain | | | | for Health and | [address] | | | | | Healing, Building 2 | [phone] | | | | | [place], [place] | | | | | | [address] | | | | | | [phone] | | | +--------+ + + + [...]
--- OUTSIDE RECORDS SUMMARY | ~2019-07-31 | XMS | Encounter Summary ---
Demographics + + + | Address | [address] | | | [place] [address] | + + + | Home Phone [...] [place] | | | | | [address] | | + + + + + Care Team Providers + +------+ + | Care Neurological Surgery Teacher Name | Role | Phone | [...] 01.28: | | 2016 | Encounter | [facility] & | MD | Category of | | | | Healing [address] | | Impairments, | | | | Ave Mailcode: CH8C | | Neurological | | | | [facility] | | | | | | and Healing, | | | | | | Building [facility] | | | | | | Floor [place], [place] | | | | | | [address] | | | | | | [phone] | | | +--------+ + + + [...]
--- OUTSIDE RECORDS SUMMARY | ~2019-07-31 | XMS | Encounter Summary ---
Demographics + + + | Address | [address] | | | [place] [address] | + + + | Home Phone | | + + + | Preferred Language | Unknown | + + + | Marital Status | | + + + | Sikhism Affiliation | 1061 | + + + [...] [place] | | | | | [address] | | + + + + + | Christy Grande | ECON | [address] | | | | | [place] | | | | | [address] | | + + + + + Care Team Providers + +------+ + | Care Dermatology Physician Name | Role | Phone | + +------+ + | Juan Demarco MD | PCP | | + +------+ + Encounter Details +--------+ + + + + | Date | Type | Department | Care Team | Description | +--------+ + + + + | 05/22/ | Orders Only | [facility] | Jb Mendiola, | | | 2015 | | CARDIOLOGY FELIBERTO | [address] | | | | | ECHO [address] | [place] [address] | | | | | [place] | [phone] | | | | | [address] | | | | | | [phone] | | | +--------+ + + + [...] 50 - 55 %. 3. There is fjul-jl-ectkvzqf aortic regurgitation. | | + + + [...] 50 - 55 %. 3. There is xqiy-rl-xsrguvou aortic regurgitation. | | | FINDINGS -------- [...] | | | Aortic Valve: There is dicu-xv-qvhvzejn aortic regurgitation. Mitral | | | Valve: [...] | | mmHg PV Vmax: 1.10 m/s Jewel Hole Cornerer: MIKI Authenticated by: | | | Jb [...] between 50 - 55 %.3. There is zftg-rf-skvljoqk aortic regurgitation. | | FINDINGS--------ECG rhythm: Sinus [...] moderately | | calcified.Aortic Valve: There is hbuu-fg-guloubuo aortic regurgitation.Mitral Valve: The | | mitral [...] cmLVPWd: 1.06 cmLVOT Area: | | 4.42 jn3KVAN Diam: 2.37 cm%FS: 33.40 %EF(Teich): 61.58 %ESV(Teich): 54.19 | | mlLVIDs: 3.59 cmSV(Teich): 86.87 mlLAESV(A-L): 39.88 mlLAESV Index (A-L): 17.19 | | ml/m2LAAs A2C: 14.25 gm5JGKTV A-L A2C: 37.04 mlLALs A2C: 4.65 cmLAAs A4C: 15.34 | | gt6QVWBM A-L A4C: 39.93 mlLALs A4C: 5.00 cmAo Diam: 3.20 cmLA Diam: 4.49 | | cmLA/Ao: 1.40AV maxP.10 mmHgAV meanP.59 mmHgAV Vmax: 1.81 m/Stormy Vmean: | | 1.22 m/Stormy VTI: 32.95 cmAVA Vmax: 1.92 cm2AVA (VTI): 2.49 rn2OXPW (Vmax): 0.00 | | cm2/m2AVAI (VTI): 0.00 cm2/m2LVOT maxP.47 mmHgLVOT meanP.61 mmHgLVSI | | Dopp: 35.43 ml/m2LVSV Dopp: 82.19 mlLVOT Vmax: 0.78 m/sLVOT Vmean: 0.61 m/sLVOT | | VTI: 18.58 cmSeptal e': 0.06 m/sLateral e': 0.08 m/sPV maxP.90 mmHgPV Vmax: | | 1.10 m/s Jewel Hole Cornerer: MIKIAuthenticated by: Jb Mendiola MD, FACC, FACP, FASNCReport | | Date/Time: 05-22-2015 16:37:35 IMPRESSION: 1. This was a technically difficult study | | with suboptimal views.2. Overall left ventricular systolic function is low-normal with, | | an EF between 50 - 55 %.3. There is uhoq-oo-nmxlhodh aortic regurgitation. | |IVC/Hepatic Veins: The inferior [...] |PV Vmax: 1.10 m/s | | | |Jewel Hole Cornerer: RK | |Authenticated by: Jb Mendiola MD, FACC, FACP, FASHI | |Report Date/Time: 05-22-2015 16:37:35 | | | |IMPRESSION: | |1. This was a technically difficult study with suboptimal views. | |2. Overall left ventricular systolic function is low-normal with, an EF between 50 - 55 %. | |3. There is zspq-re-cnqzdhgg aortic regurgitation. | + + documented in this encounter Visit Diagnoses Not on filedocumented in this encounter"
--- OUTSIDE RECORDS SUMMARY | ~2019-07-31 | XMS | Encounter Summary ---
Demographics + + + | Address | [address] | | | [place] [address] | + + + | Home Phone [...] [place] | | | | | [address] | | + + + + + Care Team Providers + +------+ + | Care Boilermaker Assembly And Erection Name | Role | Phone | + [...] Center at [facility] [address] | [address] | | | | | Ivy Cabrera | [address] | | | | | Mailcode: Center | [place], [place] | | | | | for Health and | [address] | | | | | [facility] 2 | [phone] | | | | | [place], [place] | | | | | | [address] | | | | | | [phone] | | | +--------+ + + + [...]
--- OUTSIDE RECORDS SUMMARY | ~2019-07-31 | XMS | Encounter Summary ---
Demographics + + + | Address | [address] | | | [place] [address] | + + + | Home Phone [...] [place] | | | | | [address] | | + + + + + | Christy Flaherty | ECON | [address] | | | | [place] | | | | | [address] | | + + + + + Care Team Providers + +------+ + | Care Scraper Meat Name | Role | Phone | + [...] + + | 09/16/ | Office | [facility] | [place] | Contusion of right | | 2012 | Visit | OCCUPATIONAL HEALTH | MD [address] | hand (Primary Dx); | | | | [address] | [facility] | Place of occurrence, | | | | [address] [facility] | [place] [address] | industrial places | | | | [place], [place] | [phone] | and premises | | | | [address] | | | | | | [phone] | | | +--------+---------+ + + + [...] MD - 09/16/2012 5:11 PM PDTSee dictation [id number] christopher d by [place] MD at 09/16/2012 5:12 PM PDTWaring, [place] MD - 09/17/19 13 12:00 AM PDT OCCUPATIONAL MEDICINE [address] [place] [address] [place] [address] FAX: [phone] OFFICE VISIT : 1965 Claim number: [id number] Date of injury: 08/18/2012 Employer: [employer] Guarantor: [...] as of yet. Hollie [place] MD / [facility] JOB #: [id number] signed by [place] MD at 10/08/2012 [...]
--- OUTSIDE RECORDS SUMMARY | ~2019-07-31 | XMS | Encounter Summary ---
Demographics + + + | Address | [address] | | | [place] [address] | + + + | Home Phone | | + + + | Preferred Language | Unknown | + + + | Marital Status | | + + + | Zoroastrianism Affiliation | 1061 | + + + [...] [place] | | | | | [address] | | + + + + + | Christy Flaherty | ECON | [address] | | | | | [place] | | | | | [address] | | + + + + + Care Team Providers + +------+ + | Care Pool Finisher Name | Role | Phone | + +------+ + | Juan Demarco MD | PCP | | + +------+ + Encounter Details +--------+ + + + + | Date | Type | Department | Care Team | Description | +--------+ + + + + | 03/07/ | Orders Only | [facility] | Conversion | | | 2014 | | INFECTIOUS DISEASE | Transaction, | | | | | [address] | Provider Unknown | | | | | [place], [place] | | | | | | [address] | (Fax) | | | | | [phone] | | | +--------+ + + + [...]
--- OUTSIDE RECORDS SUMMARY | ~2019-07-31 | XMS | Encounter Summary ---
Demographics + + + | Address | [address] | | | [place] [address] | + + + | Home Phone | | + + + | Preferred Language | Unknown | + + + | Marital Status | | + + + | Mormonism Affiliation | ASG | + + + [...] [place] | | | | | [address] | | + + + + + Care Team Providers + +------+ + | Care Shirt Cleaner Name | Role | Phone | [...] changes | | 2016 | Encounter | [facility] & | | | | | | Healing [address] | | | | | | [place] Mailcode: CH8C | | | | | | [facility] | | | | | | and Healing, | | | | | | Building | | | | | | Floor [place], [place] | | | | | | [address] | | | | | | [phone] | | | +--------+ + + + [...]
--- OUTSIDE RECORDS SUMMARY | ~2019-07-31 | XMS | Encounter Summary ---
Demographics + + + | Address | [address] | | | [place] [address] | + + + | Home Phone | | + + + | Preferred Language | Unknown | + + + | Marital Status | | + + + | Orthodoxy Affiliation | 1061 | + + + [...] [place] | | | | | [address] | | + + + + + | Christy Flaherty | ECON | [address] | | | | | [place] | | | | | [address] | | + + + + + Care Team Providers + +------+ + | Care Corporate Travel Manager Name | Role | Phone | + +------+ + | Juan Demarco MD | PCP | | + +------+ + Encounter Details +--------+ + + + + | Date | Type | Department | Care Team | Description | +--------+ + + + + | 12/24/ | Orders Only | [facility] | Conversion | | | 2014 | | INFECTIOUS DISEASE | Transaction, | | | | | [address] | Provider Unknown | | | | | [place], [place] | | | | | | [address] | (Fax) | | | | | [phone] | | | +--------+ + + + [...] + + + | Red Blood | 5.25 | 10 | EXTERNAL | | | Cells | | | LAB | | | Counted | | | | | + +-------+ + + + | Hemoglobin | 15.2 | g/dL | EXTERNAL | [...]
--- OUTSIDE RECORDS SUMMARY | ~2019-07-31 | XMS | Encounter Summary ---
Demographics + + + | Address | [address] | | | [place] [address] | + + + | Home Phone | | + + + | Preferred Language | Unknown | + + + | Marital Status | | + + + | Jewish Affiliation | 1061 | + + + | Race | Unknown | + + + | Ethnic Group | Unknown | + + + Author + + + | Author | [facility] | | | and [place] | + + + | Organization | [facility] | | [...] [place] | | | | | [id number] | | + + + + + | Christy Flaherty | ECON | [address] | | | | | [place] | | | | | [address] | | + + + + + Care Team Providers + +------+ + | Care Money Counter Name | Role | Phone | + +------+ + | Juan Demarco MD | PCP | | + +------+ + Encounter Details +--------+ + + + + | Date | Type | Department | Care Team | Description | +--------+ + + + + | 12/24/ | Orders Only | [facility] | Conversion | | | 2014 | | INFECTIOUS DISEASE | Transaction, | | | | | [address] | Provider Unknown | | | | | [place], [place] | | | | | | [address] | (Fax) | | | | | [phone] | | | +--------+ + + + [...]
--- OUTSIDE RECORDS SUMMARY | ~2019-07-31 | XMS | Encounter Summary ---
Demographics + + + | Address | [address] | | | [place] [address] | + + + | Home Phone | | + + + | Preferred Language | Unknown | + + + | Marital Status | | + + + | Hinduism Affiliation | 1061 | + + + | Race | Unknown | + + + | Ethnic Group | Unknown | + + + Author + + + | Author | [facility] | | | and [place] | + + + | Organization | [facility] | | | [...] [place] | | | | | [address] | | + + + + + | Christy Flaherty | ECON | [address] | | | | | [place] | | | | | [address] | | + + + + + Care Team Providers + +------+ + | Care Clinical Esthetician Name | Role | Phone | + +------+ + | Juan Demarco MD | PCP | | + +------+ + Encounter Details +--------+ + + + + | Date | Type | Department | Care Team | Description | +--------+ + + + + | 01/21/ | Orders Only | [facility] | Conversion | | | 2014 | | INFECTIOUS DISEASE | Transaction, | | | | | [address] | Provider Unknown | | | | | [place], [place] | | | | | | [address] | (Fax) | | | | | [phone] | | | +--------+ + + + [...]
--- OUTSIDE RECORDS SUMMARY | ~2019-07-31 | XMS | Encounter Summary ---
Demographics + + + | Address | [address] | | | [place] [address] | + + + | Home Phone | | + + + | Preferred Language | Unknown | + + + | Marital Status | | + + + | Zoroastrian Affiliation | ASG | + + + [...] [place] | | | | | [address] | | + + + + + Care Team Providers + +------+ + | Care Track Oiler Name | Role | Phone | + +------+ + | Jarvis Willard MD | PCP | | + +------+ + Encounter Details +--------+------+ + + + | Date | Type | Department | Care Team | Description | +--------+------+ + + + | 02/08/ | Lab | Laboratory at [facility] | | Idiopathic chronic | | 2019 | | [address] | | pancreatitis (HCC) | | | | [place], [place] | | | | | | [address] | | | | | | [phone] | | | +--------+------+ + + + [...] | | | | | | by Snapshot Interactive,500 | | | | | | [address] [facility],[place] | | | | | | [address] | | | | | | [phone].Affinergy. | | | | | | Rehan [...] [facility] | [address] | [place], [place] | | | UNIV PTH - INTFC | | [address] | | + + + + + [...] | + + + + + | [facility] | [address] | [place] [address] | | | SERVICES, [place] [facility] | | | | | HEALTH [...] | REFERENCE | | | | [place] [address] | | LAB | | | | [phone] | | | | | | | | | | | | Wize.Vizify | | | | | | | [...] [facility] | [address] | [place] [address] | | | SERVICES, SPECIAL | [address] | | | | IMM + [...] | | | this test in the Keepy | | | | | | Laboratory Test | | | | | | Directory | | | | | | (Affinergy.BellaDati).Performed | | | | | | by Snapshot Interactive,[address] | | | | | | Cl Dean, [facility],[place] | | | | | | [address] | | | | | | [phone].Affinergy. | | | | | | [facility], Rehan Paris MD, | | | [...] [facility] | [address] | [place], [place] | | | UNIV PTH - INTFC | | [address] | | + + + + + [...] [facility] | [address] | [place] [address] | | | SERVICES, CORE | PARK [...] [facility] | | | (CORKY GENOVEVA) | Snapshot Interactive,500 | | REG UNIV | | | SERUM | Cl Dean, [facility],[place] | | PTH - INTFC | | | | [address] | | | | | | [phone].BeeFirst.inlab. | | | | | | comRehan [...] B: | | | | | | Vizify/CS | | | | + + + + + + + + | Specimen | + + | Blood - Blood | | (substance) | + + + + + + + | Performing | Address | City/State/Zipcode | Phone Number | | Organization | | | | + + + + + | [facility] | [address] | [place], [place] | | | UNIV PTH - INTFC | | [address] | | + + + + + [...] B: | | | | | | Affinergy.BellaDati/CSPerformed | | | | | | by Snapshot Interactive,[address] | | | | | | [facility] | | | | | | [address] | | | | | | [phone].BeeFirst.inlab. | | | | | | com, Rehan Paris MD, | | | | | | Lab. Director | | | | + + + + + + + + | Specimen | + + | Blood - Blood | | (substance) | + + + + + + + | Performing | Address | City/State/[facility] | Phone Number | | Organization | | | | + + + + + | [facility] | [address] | [place], [place] | | | UNIV PTH - INTFC | | [address] | | + + + + + [...] + + + | [facility] | [address] | [place] [address] | | | JAMISON WORKMAN | [address] [...] + + + + + | [facility] | [address] | [place] [address] | | | SERVICES, CORE | [address] | | | + [...] | + + + + + | [facility] | [address] | [place] [address] | | | SERVICES, CORE | JEROME [...] INTFC | | | | determined by Keepy | | | | | | KeyEffx. See | | | | | | Compliance Statement B: | | | | | | Affinergy.BellaDati/CSPerformed | | | | | | by Snapshot Interactive,500 | | | | | | [address] Dean [facility],[place] | | | | | | [address] | | | | | | [phone].Affinergy. | | | | | | comRehan [...] [facility] | [address] | [place], [place] | | | UNIV PTH - INTFC | | [address] | | + + + + + [...] B: | | | | | | Vizify/CSPerformed | | | | | | by Snapshot Interactive,500 | | | | | | Cl Dean, [facility] | | | | | | [address] | | | | | | [phone].Affinergy. | | | | | | [facility], | | | | | | [...] + + | [facility] | [address] | [place], [place] | | | UNIV PTH - INTFC | | [address] | | + + + + + [...] [facility] | [address] | [place] [address] | | | SERVICES, CORE | PARK [...] | + + + + + | [facility] | [address] | [place] [address] | | | SERVICES, CORE | PARK [...] [facility] | [address] | [place] [address] | | | SERVICES, CORE | [address] [...] + + + + + | [facility] | [address] | [place] [address] | | | [place] | | | | + + + [...] | | | LABORATORY | | | [place] | | | SERVICES, | | | [...] SERVICES, | | | | | | [place] [facility] | | | | | | [...] | + + + + + | [facility] | [address] | [place] [address] | | | SERVICES, [facility] | | | | | HEALTH + HEALING | | | | + + + + + documented in this encounter Visit Diagnoses + + | Diagnosis | + + | Idiopathic chronic pancreatitis (HCC) | + + documented in this encounter"
--- OUTSIDE RECORDS SUMMARY | ~2019-07-31 | XMS | Encounter Summary ---
Demographics + + + | Address | [address] | | | [place] [address] | + + + | Home Phone [...] [place] | | | | | [address] | | + + + + + Care Team Providers + +------+ + | Care Chair And Couch Maker Name | Role | Phone | [...] Encounter | Services [address] | | | | | [address] | [address] | | | | | [place], [place] | [place], [place] | | | | | [address] | [address] | | | | | | [phone] | | | | | | | [...]
--- OUTSIDE RECORDS SUMMARY | ~2019-07-31 | XMS | Encounter Summary ---
Demographics + + + | Address | [address] | | | [place] [address] | + + + | Home Phone [...] [place] | | | | | [address] | | + + + + + Care Team Providers + +------+ + | Care Interim Controller Name | Role | Phone | + [...] | 2019 | Encounter | Center at [facility] [address] | [address] | | | | | [address] | [address] | | | | | Mailcode: Center | [place], [place] | | | | | for Health and | [address] | | | | | Healing, Building [address] | [phone] | | | | | [place], [place] | | | | | | [address] | | | | | | [phone] | | | +--------+ + + + [...]
--- OUTSIDE RECORDS SUMMARY | ~2019-07-31 | XMS | Encounter Summary ---
Demographics + + + | Address | [address] | | | [place] [address] | + + + | Home Phone [...] + + + | Author | [facility] | + + + | Organization | [facility] | + + + | Address | Unknown | + + + | Phone | Unavailable | + + + Support + + + + + | Name | Relationship | Address | Phone | + + + + + | Christy Flaherty | ECON | [address] | | | | | [place] | | | | | [address] | | + + + + + Care Team Providers + +------+ + | Care Beater Tender Name | Role | Phone | [...] | Procedural Unit at | MD Anil [address] | | | | | [address] | [address] | | | | | [address] | [place], [place] | | | | | [place], | [address] | | | | | [address] [place] [address], | [phone] | | | | | [place] [address] | | | | | | [phone] | | | +--------+ + + + [...] by | 04/10/17 1200 by | | carol | Right; Hand; 20 g; Lidocaine; No; | Tresa Devlin, ABBI | Sandy Zhang RN | | IV [...]
--- OUTSIDE RECORDS SUMMARY | ~2019-07-31 | XMS | Encounter Summary ---
Demographics + + + | Address | [address] | | | [place] [address] | + + + | Home Phone [...] [place] | | | | | [address] | | + + + + + | Christy Flaherty | ECON | [address] | | | | | [place] | | | | | [address] | | + + + + + Care Team Providers + +------+ + | Care Vp Global Marketing [employer] Name | Role | Phone | + +------+ + | Juan Demarco MD | PCP | | + +------+ + Encounter Details +--------+ + + + + | Date | Type | Department | Care Team | Description | +--------+ + + + + | 04/08/ | Orders Only | [facility] | Conversion | | | 2015 | | INFECTIOUS DISEASE | Transaction, | | | | | [address] | Provider Unknown | | | | | [place], [place] | | | | | | [address] | (Fax) | | | | | [phone] | | | +--------+ + + + [...] + | Red Blood | 5.35 | 10 | EXTERNAL | [...] + | Red Blood | 5.35 | 10 | EXTERNAL | [...] + | Red Blood | 5.35 | 10 | EXTERNAL | [...]
--- OUTSIDE RECORDS SUMMARY | ~2019-07-31 | XMS | Encounter Summary ---
Demographics + + + | Address | [address] | | | [place] [address] | + + + | Home Phone [...] [place] | | | | | [address] | | + + + + + | Christy Flaherty | ECON | [address] | | | | | [place] | | | | | [address] | | + + + + + Care Team Providers + +------+ + | Care Rigger Third Name | Role | Phone | + +------+ + PCP | Unavailable | + +------+ + Encounter Details +--------+ + + + + | Date | Type | Department | Care Team | Description | +--------+ + + + + | 05/29/ | Hospital | [facility] | | | | 2007 | Encounter | MED CTR XRAY [address] | | | | | | [place] | | | | | | [place] [address] | | | | | | [phone] | | | +--------+ + + + [...]
--- OUTSIDE RECORDS SUMMARY | ~2019-07-31 | XMS | Encounter Summary ---
Demographics + + + | Address | [address] | | | [place] [address] | + + + | Home Phone [...] [place] | | | | | [address] | | + + + + + Care Team Providers + +------+ + | Care Receiving Weigher Name | Role | Phone | + +------+ + | Jarvis Willard MD | PCP | | + +------+ + Encounter Details +--------+ + + + + | Date | Type | Department | Care Team | Description | +--------+ + + + + | 02/26/ | Procedure | Radiology/Imaging | | | | 2017 | Pass | Lab at [facility] [address] | | | | | | [place] Mailcode: | | | | | | [facility] | | | | | | Health and Healing, | | | | | | [facility] | | | | | | Floor [place], [place] | | | | | | [address] | | | | | | [phone] | | | +--------+ + + + [...]
--- OUTSIDE RECORDS SUMMARY | ~2019-07-31 | XMS | Encounter Summary ---
Demographics + + + | Address | [address] | | | [place] [address] | + + + | Home Phone | | + + + | Preferred Language | Unknown | + + + | Marital Status | | + + + | Confucianism Affiliation | 1061 | + + + | Race | Unknown | + + + | Ethnic Group | Unknown | + + + Author + + + | Author | [facility] | | | and [place] | + + + | Organization | [facility] | | [...] [place] | | | | | [address] | | + + + + + | Christy Flaherty | ECON | [address] | | | | | [place] | | | | | [address] | | + + + + + Care Team Providers + +------+ + | Care An/Sqq 89(V)15 Sonar System Journeyman Name | Role | Phone | + +------+ + PCP | Unavailable | + +------+ + Encounter Details +--------+ + + + + | Date | Type | Department | Care Team | Description | +--------+ + + + + | 02/09/ | Hospital | [facility] | | | | 2003 | Encounter | MED CTR SLEEP | | | | | | CENTER [address] | | | | | | [place] | | | | | | [address] | | | | | | [phone] | | | +--------+ + + + [...]
--- OUTSIDE RECORDS SUMMARY | ~2019-07-31 | XMS | Encounter Summary ---
Demographics + + + | Address | [address] | | | [place] [address] | + + + | Home Phone | | + + + | Preferred Language | Unknown | + + + | Marital Status | | + + + | Orthodoxy Affiliation | 1061 | + + + | Race | Unknown | + + + | Ethnic Group | Unknown | + + + Author + + + | Author | [facility] | | | and [place] | + + + | Organization | [facility] | | | [...] [place] | | | | | [address] | | + + + + + | Christy Flaherty | ECON | [address] | | | | | [place] | | | | | [address] | | + + + + + Care Team Providers + +------+ + | Care Inspector Raw Quartz Name | Role | Phone | + +------+ + | Juan Demarco MD | PCP | | + +------+ + Encounter Details +--------+ + + + + | Date | Type | Department | Care Team | Description | +--------+ + + + + | 12/18/ | Orders Only | [facility] | Conversion | | | 2014 | | INFECTIOUS DISEASE | Transaction, | | | | | [address] | Provider Unknown | | | | | [place], [place] | | | | | | [address] | (Fax) | | | | | [phone] | | | +--------+ + + + [...]
--- OUTSIDE RECORDS SUMMARY | ~2019-07-31 | XMS | Encounter Summary ---
Demographics + + + | Address | [address] | | | [place] [address] | + + + | Home Phone [...] [place] | | | | | [address] | | + + + + + Care Team Providers + +------+ + | Care Scenic Designer Name | Role | Phone | [...] Test Results | | 2017 | | [place] [facility] [address] | [address] | | | | | [address] | [address] | | | | | Mailcode: [place] | [place], [place] | | | | | for Health and | [address] | | | | | [facility] [address] | [phone] | | | | | [place], [place] | | | | | | [address] | | | | | | [phone] | | | +--------+ + + + [...]
--- OUTSIDE RECORDS SUMMARY | ~2019-07-31 | XMS | Encounter Summary ---
Demographics + + + | Address | [address] | | | [place] [address] | + + + | Home Phone | | + + + | Preferred Language | Unknown | + + + | Marital Status | | + + + | Moravian Affiliation | 1061 | + + + | Race | Unknown | + + + | Ethnic Group | Unknown | + + + Author + + + | Author | [facility] | | | and [place] | + + + | Organization | [facility] | | [...] [place] | | | | | [address] | | + + + + + | Christy Flaherty | ECON | [address] | | | | | [place] | | | | | [address] | | + + + + + Care Team Providers + +------+ + | Care Health Social Work Professor Name | Role | Phone | + +------+ + | Juan Demarco MD | PCP | | + +------+ + Encounter Details +--------+ + + + + | Date | Type | Department | Care Team | Description | +--------+ + + + + | 08/07/ | Transcribed | [facility] | Kimo Baum, | Convulsions, | | 2015 | Orders | MED CTR SLEEP | MD [address] | unspecified | | | | CENTER [address] | [address] | convulsion type | | | | [place], [place] | [place] [address] | ([facility]) (Primary Dx) | | | | [address] | [phone] | | | | | [phone] | | | +--------+ + + + [...] + | Butch Cosby MD 08/13/2014 7:46 [facility] | | | Services ELECTROENCEPHALOGRAM PATIENT INFORMATION Patient name: | | | Daysi Flaherty Date of : | | | 1965 Referring Physician: Kimo Baum MD Interpreting | | | Physician: Butch Cosby Date/Time of Study: 08/10/14, 1100 | | | TECHNICAL INFORMATION EEG Number: [id number] Electrode Placement: The | | | electroencephalogram was recorded with a [employer] Moderna EEG | | | recording/reading station, using [...]
--- OUTSIDE RECORDS SUMMARY | ~2019-07-31 | XMS | Encounter Summary ---
Demographics + + + | Address | [address] | | | [place] [address] | + + + | Home Phone | | + + + | Preferred Language | Unknown | + + + | Marital Status | | + + + | [place] Affiliation | 1061 | + + + [...] [place] | | | | | [address] | | + + + + + | Christy Flaherty | ECON | [address] | | | | | [place] | | | | | [address] | | + + + + + Care Team Providers + +------+ + | Care Roving Frame Tender Name | Role | Phone | + +------+ + | Juan Demarco MD | PCP | | + +------+ + Encounter Details +--------+ + + + + | Date | Type | Department | Care Team | Description | +--------+ + + + + | 11/19/ | Orders Only | [facility] | Rk Rodriguez DO | | | 2014 | | INFECTIOUS DISEASE | [address] | | | | | [address] | [place] [address] | | | | | [place], [place] | [phone] | | | | | [address] | | | | | | [phone] | | | +--------+ + + + [...]
--- OUTSIDE RECORDS SUMMARY | ~2019-07-31 | XMS | Encounter Summary ---
Demographics + + + | Address | [address] | | | [place] [address] | + + + | Home Phone [...] [place] | | | | | [address] | | + + + + + | Christy Flaherty | ECON | [address] | | | | | [place] | | | | | [address] | | + + + + + Care Team Providers + +------+ + | Care Rehab Director Occupational Therapist Name | Role | Phone | + [...] + + | 09/12/ | Office | [facility] | [place] | Contusion of right | | 2014 | Visit | [facility] | [address] | hand, subsequent | | | | [address] | [facility] | encounter (Primary | | | | [address] [facility] | [place] [address] | Dx); Place of | | | | [place], [place] | [phone] | occurrence, | | | | [address] | | industrial places | | | | [phone] | | and premises | +--------+---------+ + [...] [place] Date of injury: 08/18/2012 Claim number: [id number] Chief complaint: Right hand injury, scheduled appointment [...] quite 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 Variou s methods of self treatment have not brought about any improvement. I asked him once again about what he's been doing with his hand, and he states basically he's been leading a sedent luiz life. He ended up leaving his job with the [employer] for which this injury oc curred, and then went to work in [employer] which he started in May of this [...] Vital signs as noted, nursing notes reviewed. Tokbvxr-mzal-idpxbkzph, well-nourished, in no apparent distress, pleasant cooperative. [...] injury recently COMPARISON: September 02, 2012. | [facility] | | FINDINGS:3 views of the [...] + + | Performing | Address | City/State/[facility] | Phone Number | | Organization | | | | + + + + + | [address] | [address] | [place] | [phone] | | [facility] | | [address] | | | - IMAGING | | | | + + + + + documented in this encounter Visit Diagnoses + + | Diagnosis | + + | Contusion of right hand, subsequent encounter - Primary | + + | Place of occurrence, industrial places and premises | + + documented in this encounter
--- OUTSIDE RECORDS SUMMARY | ~2019-07-31 | XMS | Encounter Summary ---
Demographics + + + | Address | [address] | | | [place] [address] | + + + | Home Phone | | + + + | Preferred Language | Unknown | + + + | Marital Status | | + + + | Pentecostal Affiliation | 1061 | + + + | Race | Unknown | + + + | Ethnic Group | Unknown | + + + Author + + + | Author | [facility] | | | and [place] | + + + | Organization | [facility] | | | [...] [place] | | | | | [address] | | + + + + + | Christy Flaherty | ECON | [address] | | | | | [place] | | | | | [address] | | + + + + + Care Team Providers + +------+ + | Care Community Health Educator Name | Role | Phone | + +------+ + | Juan Demarco MD | PCP | | + +------+ + Encounter Details +--------+ + + + + | Date | Type | Department | Care Team | Description | +--------+ + + + + | 06/23/ | Orders Only | [facility] | Conversion | | | 2016 | | INFECTIOUS DISEASE | Transaction, | | | | | [address] | Provider Unknown | | | | | [place], [place] | | | | | | [address] | (Fax) | | | | | [phone] | | | +--------+ + + + [...]
--- OUTSIDE RECORDS SUMMARY | ~2019-07-31 | XMS | Encounter Summary ---
Demographics + + + | Address | [address] | | | [place] [address] | + + + | Home Phone [...] [place] | | | | | [address] | | + + + + + | Christy Flaherty | ECON | [address] | | | | | [place] | | | | | [address] | | + + + + + Care Team Providers + +------+ + | Care Retoucher Photoengraving Name | Role | Phone | + +------+ + | Juan Demarco MD | PCP | | + +------+ + Encounter Details +--------+ + + + + | Date | Type | Department | Care Team | Description | +--------+ + + + + | 07/10/ | Hospital | [facility] | Conversion | Aortic valve | | 2016 | Encounter | CENTER CV INTRA OP | Transaction, | disorder | | | | [address] | Provider Unknown | | | | | [place], [place] | [phone] | | | | | [address] | | | | | | [phone] | Davion Santana MD | | | | | | [address] | | | | | | [place] [address] | | | | | | [phone] | | | | | | | [...] 07/11/151616 Date of Service: 07/11/151616 Status: Signed Circle Edger: Ike Luther RN (Registered Nurse) Discharge instructions completed. All questions answered. IV discontinued with coannula in tact. Patient discharged to home with . onver kelsey Transaction, Provider Unknown - 07/11/2015 3:11 PM PDT Nurse Progress Note by Ike Luther RN at 07/11/151510 Author: Ike Luther RN Service: (none) Author Type: Registered Nurse Filed: 07/11/151511 Date of Service: 07/11/151510 Status: Signed Circle Edger: Ike Luther RN (Registered Nurse) Patient tolerated [...]
--- OUTSIDE RECORDS SUMMARY | ~2019-07-31 | XMS | Encounter Summary ---
Demographics + + + | Address | [address] | | | [place] [address] | + + + | Home Phone [...] [place] | | | | | [address] | | + + + + + Care Team Providers + +------+ + | Care Band Saw Marker Name | Role | Phone | + [...] | | | Acquired | SURGICAL | [facility] | | | | | absence of | CLINIC [address] | [address] [facility] [place], | | | | | other | [address] | [place] | | | | | specified | AVE | [address] | | | | | parts of | [place], | Phone: | | | | | digestive | [place] [address] | [phone] | | | | | tract | Phone: | Fax: | | | | | | [phone] | [phone] | | | | | | Fax: | | | | | | | [phone] | | +--------+--------+ + + + + Encounter Details +--------+---------+ + + + | Date | Type | Department | Care Team | Description | +--------+---------+ + + + | 02/08/ | Office | Digestive Health | Taiwo Tilley, | Idiopathic chronic | | 2019 | Visit | Center at [facility] [address] | [address] | pancreatitis (HCC) | | | | [address] | [address] | (Primary Dx) | | | | Mailcode: [place] | [place], [place] | | | | | [facility] and | [address] | | | | | [facility] 2 | [phone] | | | | | [place], [place] | | | | | | [address] | | | | | | [phone] | | | +--------+---------+ + + + [...] and test results either by telephone or [employer]. The fastest w ay to get a message to our staff is through [employer]atch [employer]. Please register and activate Sc[employer]atch Hard for access to your medical records, results, requests for refills and the ability to have non-urgent communication with our team. [email or web address] If you have questions or need assistance please call T[facility] [phone]. To schedule or cancel an appointment, please call [employer] Phone Number Outpatient Clinics 8:00am 4:30 pm [phone] Tilley ordered imaging at [facility] please call to schedule an appointment [employer]oses Phone Number Radiology Scheduling 8:00 am 4:30 pm [phone] For routine clinical questions and medication refills during regular business hours (8:00 a m 4:30 pm) please call: RN Coordinator Esther Adam RN Car Repairer Georgina Huerta CMA For URGENT issues during regular business hours please alert the phone staff that your call is urgent. For after-hours urgent issues, page the adult GI provider hotel operations manager at [phone]. For EMERGENCIES please go to the nearest [...] to call our clinic with any questions. [phone] documented in this encounter Progress Notes Taiwo Tilley MD - 02/08/2019 2:25 PM PSTFormatting of this note might be different fro m the original. [facility] Patient Name: Daysi Flaherty MR#: [id number] : 1965 HPI: Daysi Flaherty is a [...] to work 3-4 days a month. 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 He describes [...] 6 week with no resolution. He has Ocean 1 stools. He is non-smoker (ex-smoker) and [...] Amitiza [Lubiprostone] Cough Meloxicam Diarrhea Bowel incontinence Pyyhaae-Tyj-Ika Reductase Inhibitors Seizures Increased frequency of seizures, [...] pancreatitis: Suspect recurrent acute pancreatitis evolving into poll clerk kori pancreatitis. EUS with FNA was consistent [...] Taiwo Tilley MD [facility] 6TH FLOOR [address] Mailcode: [facility] [place] [address] [phone] signed by Taiwo Tilley MD at 02/08/2019 5:56 PM PSTdocumente d in this encounter Plan of Treatment Not on filedocumented as of this encounter Visit Diagnoses + + | Diagnosis | + + | Idiopathic chronic pancreatitis (HCC) - Primary | + + documented in this encounter
--- OUTSIDE RECORDS SUMMARY | ~2019-07-31 | XMS | Encounter Summary ---
Demographics + + + | Address | [address] | | | [place] [address] | + + + | Home Phone [...] [place] | | | | | [address] | | + + + + + Care Team Providers + +------+ + | Care Temp Recruiter Name | Role | Phone | + +------+ + | Jarvis Willrad MD | PCP | | + +------+ [...]
--- OUTSIDE RECORDS SUMMARY | ~2019-07-31 | XMS | Encounter Summary ---
Demographics + + + | Address | [address] | | | [place] [address] | + + + | Home Phone | | + + + | Preferred Language | Unknown | + + + | Marital Status | | + + + | Yazidism Affiliation | 1061 | + + + [...] [place] | | | | | [address] | | + + + + + | Christy Flaherty | ECON | [address] | | | | | [place] | | | | | [address] | | + + + + + Care Team Providers + +------+ + | Care Private Banker Name | Role | Phone | + +------+ + | Juan Demarco MD | PCP | | + +------+ + Encounter Details +--------+ + + + + | Date | Type | Department | Care Team | Description | +--------+ + + + + | 05/06/ | Orders Only | [facility] | Conversion | | | 2016 | | INFECTIOUS DISEASE | Transaction, | | | | | [address] | Provider Unknown | | | | | [place], [place] | | | | | | [address] | (Fax) | | | | | [phone] | | | +--------+ + + + [...]
--- OUTSIDE RECORDS SUMMARY | ~2019-07-31 | XMS | Encounter Summary ---
Demographics + + + | Address | [address] | | | [place] [address] | + + + | Home Phone [...] [place] | | | | | [address] | | + + + + + Care Team Providers + +------+ + | Care Assembler Tester Name | Role | Phone | + [...] 05/20/ | Abstract | Digestive Health | Ebcharlesconrad Taiwo, | Outside Records | | 2018 | | Center at [facility] | [address] [facility] | Received (05/12/17 | | | | [address] | [address] | Fecal Elastase | | | | Mailcode: Center | [place], [place] | Results- [facility]) | | | | for Health and | [address] | | | | | [facility] 2 | [phone] | | | | | [place], [place] | | | | | | [address] | | | | | | [phone] | | | +--------+ + + + [...]
--- OUTSIDE RECORDS SUMMARY | ~2019-07-31 | XMS | Encounter Summary ---
Demographics + + + | Address | [address] | | | [place] [address] | + + + | Home Phone [...] [address] | | | | | [place] | | | | | [address] | | + + + + + | Christy Flaherty | ECON | [address] | | | | | [place] | | | | | [address] | | + + + + + Care Team Providers + +------+ + | Care Paint Preparer Name | Role | Phone | + +------+ + | Juan Demarco MD | PCP | | + +------+ + Encounter Details +--------+ + + + + | Date | Type | Department | Care Team | Description | +--------+ + + + + | 12/31/ | Orders Only | [facility] | Conversion | | | 2014 | | INFECTIOUS DISEASE | Transaction, | | | | | [address] | Provider Unknown | | | | | [place], [place] | | | | | | [address] | (Fax) | | | | | [phone] | | | +--------+ + + + [...] + + + | Red Blood | 5.29 | 10 | EXTERNAL | [...]
--- OUTSIDE RECORDS SUMMARY | ~2019-07-31 | XMS | Encounter Summary ---
Demographics + + + | Address | [address] | | | [place] [address] | + + + | Home Phone [...] [place] | | | | | [address] | | + + + + + | Christy Flaherty | ECON | [address] | | | | | [place] | | | | | [address] | | + + + + + Care Team Providers + +------+ + | Care Insurance Underwriter Name | Role | Phone | + +------+ + | Juan Demarco MD | PCP | | + +------+ + Encounter Details +--------+ + + + + | Date | Type | Department | Care Team | Description | +--------+ + + + + | 01/07/ | Orders Only | [facility] | Conversion | | | 2014 | | INFECTIOUS DISEASE | Transaction, | | | | | [address] | Provider Unknown | | | | | [place], [place] | | | | | | [address] | (Fax) | | | | | [phone] | | | +--------+ + + + [...]
--- OUTSIDE RECORDS SUMMARY | ~2019-07-31 | XMS | Encounter Summary ---
Demographics + + + | Address | [address] | | | [place] [address] | + + + | Home Phone [...] [place] | | | | | [address] | | + + + + + Care Team Providers + +------+ + | Care Wood Cabinetmaker Name | Role | Phone | + [...] | | 2018 | | Center at [facility] [address] | [address] [facility] | [place]) | | | | [address] | [address] | | | | | Mailcode: Center | [place], [place] | | | | | for Health and | [address] | | | | | [place] [address] | [phone] | | | | | [place], [place] | | | | | | [address] | | | | | | [phone] | | | +--------+ + + + [...]
--- OUTSIDE RECORDS SUMMARY | ~2019-07-31 | XMS | Encounter Summary ---
Demographics + + + | Address | [address] | | | [place] [address] | + + + | Home Phone [...] [place] | | | | | [address] | | + + + + + Care Team Providers + +------+ + | Care Dump Truck Driver Off Highway Name | Role | Phone | + +------+ + | Jarvis Willard MD | PCP | | + +------+ + Encounter Details +--------+ + + + + | Date | Type | Department | Care Team | Description | +--------+ + + + + | 03/06/ | Documentati | Digestive Health | Taiwo Tilley, | | | 2019 | on | [place] [facility] [address] | [address] [facility] | | | | | [address] | [address] | | | | | Mailcode: Center | [place], [place] | | | | | for Health and | [address] | | | | | [facility] 2 | [phone] | | | | | [place], [place] | | | | | | [address] | | | | | | [phone] | | | +--------+ + + + [...]
--- OUTSIDE RECORDS SUMMARY | ~2019-07-31 | XMS | Encounter Summary ---
Demographics + + + | Address | [address] | | | [place] [address] | + + + | Home Phone [...] [place] | | | | | [address] | | + + + + + Care Team Providers + +------+ + | Care Junior Staff Accountant Name | Role | Phone | + [...] | | 2019 | | Center at [facility] [address] | [address] | | | | | [address] | [address] | | | | | Mailcode: Center | [place], [place] | | | | | for Health and | [address] | | | | | [facility] 2 | [phone] | | | | | [place], [place] | | | | | | [address] | | | | | | [phone] | | | +--------+ + + + [...]
--- OUTSIDE RECORDS SUMMARY | ~2019-07-31 | XMS | Encounter Summary ---
Demographics + + + | Address | [address] | | | [place] [address] | + + + | Home Phone [...] [place] | | | | | [address] | | + + + + + Care Team Providers + +------+ + | Care Ammonia Print Operator Name | Role | Phone | [...] | Procedural Unit at | MD Anil [address] | | | | | [place] [address] | [address] | | | | | [address] | [place], [place] | | | | | [place], | [address] | | | | | [address] [place] [address], | [phone] | | | | | [place] [address] | | | | | | [phone] | | | +--------+ + + + [...]
--- OUTSIDE RECORDS SUMMARY | ~2019-07-31 | XMS | Encounter Summary ---
Demographics + + + | Address | [address] | | | [place] [address] | + + + | Home Phone | | + + + | Preferred Language | Unknown | + + + | Marital Status | | + + + | Protestant Affiliation | 1061 | + + + | Race | Unknown | + + + | Ethnic Group | Unknown | + + + Author + + + | Author | [facility] | | | and [place] | + + + | Organization | [facility] | | | and [...] [place] | | | | | [address] | | + + + + + | Christy Grande | ECON | [address] | | | | | [place] | | | | | [address] | | + + + + + Care Team Providers + +------+ + | Care Loan Broker Name | Role | Phone | + +------+ + | Juan Demarco MD | PCP | | + +------+ + Encounter Details +--------+ + + + + | Date | Type | Department | Care Team | Description | +--------+ + + + + | 01/08/ | Orders Only | [facility] | Jb Mendiola, | | | 2014 | | CARDIOLOGY [place] | [address] | | | | | [address] | [place] [address] | | | | | [place], [place] | [phone] | | | | | [address] | | | | | | [phone] | | | +--------+ + + + [...] | pericardium is normal. MEASUREMENTS AR Dec Durham: | | | 4.15 m/s2 AR Dec Time: 1031.72 ms AR maxP.39 mmHg AR | | | PHT: 299.20 ms AR Vmax: 4.28 m/s Commercial Producer: VIVIANA | | | Authenticated by: Melinda [...] is normal. MEASUREMENTS AR Dec | | Durham: 4.15 m/s2AR Dec Time: 1031.72 msAR maxP.39 mmHgAR PHT: 299.20 msAR | | Vmax: 4.28 m/s Commercial Producer: VIVIANAAuthenticated by: Melinda Garner Date/Time: | | [...] | |MEASUREMENTS | | | |AR Dec Durham: 4.15 m/s2 | |AR Dec Time: 1031.72 ms | |AR maxP.39 mmHg | |AR PHT: 299.20 ms | |AR Vmax: 4.28 m/s | | | |Commercial Producer: VIVIANA | |Authenticated by: Melinda Clifton MD [...]
--- OUTSIDE RECORDS SUMMARY | ~2019-07-31 | XMS | Encounter Summary ---
Demographics + + + | Address | [address] | | | [place] [address] | + + + | Home Phone [...] [place] | | | | | [address] | | + + + + + Care Team Providers + +------+ + | Care Cytology Supervisor Name | Role | Phone | [...] | | | pancreatitis | [facility] | [facility] | | | | | (HCC) | Rd | Rd [place], | | | | | Procedures | [place], [place] | [place] | | | | | CONSULT TO | [address] | [address] | | | | | SURGERY - | Phone: | Phone: | | | | | GENERAL | [phone] | [phone] | | | | | | Fax: | Fax: | | | | | | [phone] | [phone] | + +--------+ + + + + Encounter Details +--------+---------+ + + + | Date | Type | Department | Care Team | Description | +--------+---------+ + + + | 02/08/ | Office | Digestive Health | Duy Kat, | Idiopathic chronic | | 2019 | Visit | Center at [facility] [address] | [address] | pancreatitis (HCC) | | | | [address] | [facility] [address] | (Primary Dx) | | | | Mailcode: [place] | [place], [place] | | | | | [facility] and | [address] | | | | | [facility] 2 | [phone] | | | | | [place], [place] | | | | | | [address] | | | | | | [phone] | | | +--------+---------+ + + + [...] o work 3-4 days a month. 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 He describes his stools as watery diarrhea [...] Amitiza [Lubiprostone] Cough Meloxicam Diarrhea Bowel incontinence Iauxsat-Hpe-Lix Reductase Inhibitors Seizures Increased frequency of seizures, [...] oral tablet lamoTRIgine 25 mg oral tablet ceewry-otbptnxm-hyrtyih (VIOKACE) 20,880-78,300- 78,300 unit oral tablet methotrexate [...] Bradley Ward MD General Surgery PGY1 Pager #[phone] Associated attestation - Duy Kat MD - 02/12/2019 5:48 PM PST I saw the patient and reviewed and verified all information documented by the medical stud ent and resident, and made modifications to such information, when appropriate Duy Kat M.D. [facility] ([facility]) Professor and Vice-Hspt Tutor of Surgery The [facility] for Pancreatic Disease Research [facility] [place] Cell phone: [phone] / [facility] provider's line [phone]. email: [email or web address] documented in this encounter Plan of Treatment Not on filedocumented as of this encounter Visit Diagnoses + + | Diagnosis | + + | Idiopathic chronic pancreatitis (HCC) - Primary | + + documented in this encounter
--- OUTSIDE RECORDS SUMMARY | ~2019-07-31 | XMS | Encounter Summary ---
Demographics + + + | Address | [address] | | | [place] [address] | + + + | Home Phone [...] [place] | | | | | [address] | | + + + + + Care Team Providers + +------+ + | Care Needle Loom Operator Name | Role | Phone | + +------+ + | Jarvis Willard MD | PCP | | + +------+ + Encounter Details +--------+--------+ + + + | Date | Type | Department | Care Team | Description | +--------+--------+ + + + | 05/11/ | Travel | | | | | 2020 | | | | | +--------+--------+ + [...]
--- OUTSIDE RECORDS SUMMARY | ~2019-07-31 | XMS | Encounter Summary ---
Demographics + + + | Address | [address] | | | [place] [address] | + + + | Home Phone [...] [place] | | | | | [address] | | + + + + + Care Team Providers + +------+ + | Care Durable Medical Equipment Technician Name | Role | Phone | [...] | 2019 | | Center at [facility] [address] | [address] | (Outside records | | | | [address] | [address] | reviewd by | | | | Mailcode: [place] | [place], [place] | Jarek) | | | | for Health and | [address] | | | | | [place] [address] | [phone] | | | | | [place], [place] | | | | | | [address] | | | | | | [phone] | | | +--------+ + + + [...]
--- OUTSIDE RECORDS SUMMARY | ~2019-07-31 | XMS | Encounter Summary ---
Demographics + + + | Address | [address] | | | [place] [address] | + + + | Home Phone [...] [place] | | | | | [address] | | + + + + + Care Team Providers + +------+ + | Care Bilingual Sales Assistant Name | Role | Phone [...] (Epilepsy | | 2016 | on | [facility] & | [address] | monitoring unit | | | | Healing [address] | [place], [place] | discharge letter) | | | | Ave Mailcode: [facility] | [address] | | | | | [facility] | [phone] | | | | | and Healing, | | | | | | [facility] | | | | | | [place], [place] | | | | | | [address] | | | | | | [phone] | | | +--------+ + + + [...]
--- OUTSIDE RECORDS SUMMARY | ~2019-07-31 | XMS | Encounter Summary ---
Demographics + + + | Address | [address] | | | [place] [address] | + + + | Home Phone | | + + + | Preferred Language | Unknown | + + + | Marital Status | | + + + | Taoist Affiliation | 1061 | + + + | Race | Unknown | + + + | Ethnic Group | Unknown | + + + Author + + + | Author | [facility] | | | and [place] | + + + | Organization | [facility] | | [...] [place] | | | | | [address] | | + + + + + | Christy Flaherty | ECON | [address] | | | | [place] | | | | | [address] | | + + + + + Care Team Providers + +------+ + | Care Hand Potter Name | Role | Phone | + [...] + | 09/12/ | Office | [facility] | [place] | Contusion of right | | 2014 | Visit | [facility] | [address] | hand, subsequent | | | | [place] [address] | [facility] | encounter (Primary | | | | [address] [facility] | [place] [address] | Dx); Place of | | | | [place], [place] | [phone] | occurrence, | | | | [address] | | industrial places | | | | [phone] | | and premises | +--------+---------+ + [...] [place] Date of injury: 08/18/2012 Claim number: [id number] Chief complaint: Right hand injury, scheduled appointment [...] quite tender to touch d ifficult to neurologist and interferes with sleep and most ADLs, he is right-hand dominant. Variou s methods of self treatment have not brought about any improvement. I asked him once again about what he's been doing with his hand, and he states basically he's been leading a sedent luiz life. He ended up leaving his job with the [employer] for which this injury oc curred, and then went to work in [employer] which he started in May of this [...] Vital signs as noted, nursing notes reviewed. Eualxrs-yntx-nubxmxxkg, well-nourished, in no apparent distress, pleasant cooperative. [...] injury recently COMPARISON: September 02, 2012. | [facility] | | FINDINGS:3 views of the right [...] + + | Performing | Address | City/State/[facility] | Phone Number | | Organization | | | | + + + + + | [address] | [address] | [place] | [phone] | | [facility] | | [address] | | | - IMAGING | | | | + + + + + documented in this encounter Visit Diagnoses + + | Diagnosis | + + | Contusion of right hand, subsequent encounter - Primary | + + | Place of occurrence, industrial places and premises | + + documented in this encounter
--- OUTSIDE RECORDS SUMMARY | ~2019-07-31 | XMS | Encounter Summary ---
Demographics + + + | Address | [address] | | | [place] [address] | + + + | Home Phone | | + + + | Preferred Language | Unknown | + + + | Marital Status | | + + + | Episcopalian Affiliation | 1061 | + + + | Race | Unknown | + + + | Ethnic Group | Unknown | + + + Author + + + | Author | [facility] | | | and [place] | + + + | Organization | [facility] [...] [place] | | | | | [address] | | + + + + + | Christy Grande | ECON | [address] | | | | | [place] | | | | | [address] | | + + + + + Care Team Providers + +------+ + | Care Furnace Worker Name | Role | Phone | + +------+ + | Juan Demarco MD | PCP | | + +------+ + Encounter Details +--------+ + + + + | Date | Type | Department | Care Team | Description | +--------+ + + + + | 12/05/ | Hospital | [facility] | Conversion | Rheumatic fever; | | 2014 | Encounter | [facility] | Transaction, | Coccidioidomycosis | | | | ECHOCARDIOGRAPHY | Provider Unknown | | | | | [address] [facility] | | | | | | [place], [place] | (Fax) | | | | | [address] | | | | | | [phone] | | | +--------+ + + + [...] dilated. | | | 4. There is trigrszq-os-hkewna aortic regurgitation. 5. Suboptimal | | | [...] dilated. | | | 4. There is jbulxyfe-wr-yayqvy aortic regurgitation. 5. Suboptimal | | | [...] | | calcified. Aortic Valve: There is mxxjwhbk-zi-oqqwgk aortic | | | regurgitation. Aortic Valve: [...] | | | Excursion: 1.52 cm E-F Cannon: 0.26 m/s HR: 56.66 BPM AV | [...] TV A George: 0.55 m/s TV Dec Cannon: 1.98 | | | m/s2 TV Dec Time: 284.09 ms TV E George: 0.56 m/s TV E/A Ratio: | | | 1.01 Manager Legal: CM Authenticated by: Belia Nelson MD | [...] is mildly dilated.4. There is | | tqcisiub-tb-haomlw aortic regurgitation.5. Suboptimal study to evaluate for [...] moderately calcified.Aortic | | Valve: There is kajxtyru-av-itidct aortic regurgitation.Aortic Valve: There is no | [...] (A-L): | | 24.03 ml/m2LAAs A2C: 16.90 tb2KRQJF A-L A2C: 52.54 mlLALs A2C: 4.61 cmLAAs A4C: | | 17.00 do9NAJOW A-L A4C: 48.85 mlLALs A4C: 5.02 cmAo Diam: 3.43 cmAV Cusp: 2.18 | | cmLA Diam: 4.06 cmLA/Ao: 1.18%FS: 25.49 %EDV(Teich): 135.94 mlEF(Teich): 49.82 | | %ESV(Teich): 68.20 mlIVSd: 1.00 cmIVSs: 1.28 cmLVIDd: 5.31 cmLVIDs: 3.95 | | cmLVPWd: 1.07 cmLVPWs: 1.28 cmSV(Teich): 67.73 mlD-E Excursion: 1.52 cmE-F | | Cannon: 0.26 m/sHR: 56.66 BPMAV maxP.28 mmHgAV meanP.69 mmHgAV Vmax: | | 2.07 m/Stormy Vmean: 1.38 m/Stromy VTI: 43.11 cmAVA Vmax: 1.83 cm2AVA (VTI): 1.92 | | cs5FJHT Dopp: 2.13 l/fhea3UECD Dopp: 4.68 l/minHR: 56.48 BPMLVOT maxP.82 | | mmHgLVOT meanP.46 mmHgLVSI Dopp: 37.72 ml/m2LVSV Dopp: 82.99 mlLVOT Vmax: | | 0.84 m/sLVOT Vmean: 0.57 m/sLVOT VTI: 18.25 cmMV E George: 0.70 m/sMV PHT: 80.50 | | msMVA By PHT: 2.73 ka2Gexuea e': 0.05 m/sSeptal E/e': 11.93Lateral e': 0.08 | | m/sLateral E/e': 8.73P Vein D: 0.43 m/sP Vein S/D Ratio: 0.99P Vein S: 0.42 | | m/sHR: 58.77 BPMPV maxP.78 mmHgPV meanP.93 mmHgPV Vmax: 0.66 m/sPV | | Vmean: 0.45 m/sPV VTI: 15.68 cmTV A George: 0.55 m/sTV Dec Cannon: 1.98 m/s2TV Dec | | Time: 284.09 msTV E George: 0.56 m/sTV E/A Ratio: 1.01 Manager Legal: CMAuthenticated | | by: Belia Nelson MDReport Date/Time: 12-05-2014 20:23:19 IMPRESSION: 1. Overall left | | ventricular systolic function is low-normal with, an EF between 50 - 55 %.2. The right | | ventricle is moderately enlarged measuring between 3.8 - 4.1 cm.3. The left atrium is | | mildly dilated.4. There is bqhubpwp-om-esxnfs aortic regurgitation.5. Suboptimal study | | to [...] | |D-E Excursion: 1.52 cm | |E-F Cannon: 0.26 m/s | |HR: 56.66 BPM | [...] A George: 0.55 m/s | |TV Dec Cannon: 1.98 m/s2 | |TV Dec Time: 284.09 ms | |TV E George: 0.56 m/s | |TV E/A Ratio: 1.01 | | | |Manager Legal: CM | |Authenticated by: Belia Nelson MD | |Report Date/Time: 12-05-2014 20:23:19 | | | |IMPRESSION: | |1. Overall left ventricular systolic function is low-normal with, an EF between 50 - 55 %. | |2. The right ventricle is moderately enlarged measuring between 3.8 - 4.1 cm. | |3. The left atrium is mildly dilated. | |4. There is xzovggdi-zo-auahzg aortic regurgitation. | |5. Suboptimal study to [...]
--- OUTSIDE RECORDS SUMMARY | ~2019-07-31 | XMS | Encounter Summary ---
Demographics + + + | Address | [address] | | | [place] [address] | + + + | Home Phone [...] [place] | | | | | [address] | | + + + + + | Christy Flaherty | ECON | [address] | | | | | [place] | | | | | [address] | | + + + + + Care Team Providers + +------+ + | Care Lease Examiner Name | Role | Phone | + +------+ + | Juan Demarco MD | PCP | | + +------+ + Encounter Details +--------+ + + + + | Date | Type | Department | Care Team | Description | +--------+ + + + + | 03/07/ | Orders Only | [facility] | Conversion | | | 2014 | | INFECTIOUS DISEASE | Transaction, | | | | | [address] | Provider Unknown | | | | | [place], [place] | | | | | | [address] | (Fax) | | | | | [phone] | | | +--------+ + + + [...] | DNASE B AB | Routin | 03/07/2015 | | Results for this | | | e | 12:00 AM | | procedure are in the | | | | PST | | results section. | + +--------+ + + + documented in this encounter Results Ro Lepe (03/07/2015 12:00 AM PST) + + | Specimen | + + | | + + + + + | Narrative | Performed At | + + + | 107 | EXTERNAL LAB | + + + + +---------+ + + | Performing | Address | City/State/Zipcode | Phone Number | | Organization | | | | + +---------+ + + | EXTERNAL LAB | | | | + +---------+ + + documented in this encounter Visit Diagnoses Not on filedocumented in this encounter"
--- OUTSIDE RECORDS SUMMARY | ~2019-07-31 | XMS | Encounter Summary ---
Demographics + + + | Address | [address] | | | [place] [address] | + + + | Home Phone | | + + + | Preferred Language | Unknown | + + + | Marital Status | | + + + | Pentecostal Affiliation | 1061 | + + + | Race | Unknown | + + + | Ethnic Group | Unknown | + + + Author + + + | Author | [facility] | | | and [place] | + + + | Organization | [facility] | | | and [...] [place] | | | | | [address] | | + + + + + | Christy Flaherty | ECON | [address] | | | | | [place] | | | | | [address] | | + + + + + Care Team Providers + +------+ + | Care X Ray Service Technician Name | Role | Phone | + +------+ + | Juan Demarco MD | PCP | | + +------+ + Encounter Details +--------+ + + + + | Date | Type | Department | Care Team | Description | +--------+ + + + + | 12/19/ | Hospital | [facility] | Conversion | | | 2015 | [facility] | [facility] | Transaction, | | | | | OUTPATIENT | Provider Unknown | | | | | PROCEDURES [address] | | | | [address] | (Fax) | | | | | [place], [place] | | | | | | [address] | | | | | | [phone] | | | +--------+ + + + [...]
--- OUTSIDE RECORDS SUMMARY | ~2019-07-31 | XMS | Encounter Summary ---
Demographics + + + | Address | [address] | | | [place] [address] | + + + | Home Phone [...] [place] | | | | | [address] | | + + + + + Care Team Providers + +------+ + | Care Health Equipment Servicer Name | Role | Phone | + [...] | Question | | 2019 | | [place] at [facility] [address] | MD [address] | | | | | Ivy Cabrera | [address] | | | | | Mailcode: Center | [place], [place] | | | | | [facility] and | [address] | | | | | [facility] 2 | [phone] | | | | | [place], [place] | | | | | | [address] | | | | | | [phone] | | | +--------+ + + + [...]
--- OUTSIDE RECORDS SUMMARY | ~2019-07-31 | XMS | Encounter Summary ---
Demographics + + + | Address | [address] | | | [place] [address] | + + + | Home Phone [...] [place] | | | | | [address] | | + + + + + | Christy Flaherty | ECON | [address] | | | | | [place] | | | | | [address] | | + + + + + Care Team Providers + +------+ + | Care County Agricultural Agent Name | Role | Phone | + +------+ + | Juan Demarco MD | PCP | | + +------+ + Encounter Details +--------+ + + + + | Date | Type | Department | Care Team | Description | +--------+ + + + + | 12/19/ | Hospital | [facility] | Conversion | | | 2015 | [facility] | [facility] | Transaction, | | | | | OUTPATIENT | Provider Unknown | | | | | PROCEDURES [address] | [address] | (Fax) | | | | | [place], [place] | | | | | | [address] | | | | | | [phone] | | | +--------+ + + + [...]
--- OUTSIDE RECORDS SUMMARY | ~2019-07-31 | XMS | Encounter Summary ---
Demographics + + + | Address | [address] | | | [place] [address] | + + + | Home Phone [...] [place] | | | | | [address] | | + + + + + Care Team Providers + +------+ + | Care Communications Lead Name | Role | Phone | + +------+ + | Filippo Chen DO | PCP | | + +------+ + Encounter Details +--------+ + + + + | Date | Type | Department | Care Team | Description | +--------+ + + + + | 09/25/ | Telephone | Neurology at | Noe Arambula, | | | 2015 | | [facility] & | | | | | | Healing [address] | | | | | | [place] Mailcode: CH8C | | | | | | [facility] | | | | | | and Healing, | | | | | | Building , | | | | | | Floor [place], [place] | | | | | | [address] | | | | | | [phone] | | | +--------+ + + + [...]
--- OUTSIDE RECORDS SUMMARY | ~2019-07-31 | XMS | Encounter Summary ---
Demographics + + + | Address | [address] | | | [place] [address] | + + + | Home Phone [...] [place] | | | | | [address] | | + + + + + | Christy Flaherty | ECON | [address] | | | | | [place] | | | | | [address] | | + + + + + Care Team Providers + +------+ + | Care Radio Station Audio Engineer Name | Role | Phone | + +------+ + | Juan Demarco MD | PCP | | + +------+ + Encounter Details +--------+ + + + + | Date | Type | Department | Care Team | Description | +--------+ + + + + | 07/10/ | Hospital | [facility] | Conversion | Aortic valve | | 2016 | Encounter | CENTER CV INTRA OP | Transaction, | disorder | | | | [address] | Provider Unknown | | | | | [place], [place] | [phone] | | | | | [address] | | | | | | [phone] | Davion Santana MD | | | | | | [address] | | | | | | [place] [address] | | | | | | [phone] | | | | | | | [...] 07/11/151616 Date of Service: 07/11/151616 Status: Signed Supervisor Corduroy Cutting: Ike Luther RN (Registered Nurse) Discharge instructions completed. All questions answered. IV discontinued with coannula in tact. Patient discharged to home with . onver kelsey Transaction, Provider Unknown - 07/11/2015 3:11 PM PDT Nurse Progress Note by Ike Luther RN at 07/11/151510 Author: Ike Luther RN Service: (none) Author Type: Registered Nurse Filed: 07/11/151511 Date of Service: 07/11/151510 Status: Signed Supervisor Corduroy Cutting: Ike Luther RN (Registered Nurse) Patient tolerated [...]
--- OUTSIDE RECORDS SUMMARY | ~2019-07-31 | XMS | Encounter Summary ---
Demographics + + + | Address | [address] | | | [place] [address] | + + + | Home Phone | | + + + | Preferred Language | Unknown | + + + | Marital Status | | + + + | Episcopalian Affiliation | 1061 | + + + | Race | Unknown | + + + | Ethnic Group | Unknown | + + + Author + + + | Author | [facility] | | | and [place] | + + + | Organization | [facility] | | | [...] [place] | | | | | [address] | | + + + + + | Christy Flaherty | ECON | [address] | | | | | [place] | | | | | [address] | | + + + + + Care Team Providers + +------+ + | Care Residential Property Tax Appraiser Name | Role | Phone | + +------+ + | Juan Demarco MD | PCP | | + +------+ + Encounter Details +--------+ + + + + | Date | Type | Department | Care Team | Description | +--------+ + + + + | 03/04/ | Orders Only | [facility] | Conversion | | | 2014 | | INFECTIOUS DISEASE | Transaction, | | | | | [address] | Provider Unknown | | | | | [place], [place] | | | | | | [address] | (Fax) | | | | | [phone] | | | +--------+ + + + [...]
--- OUTSIDE RECORDS SUMMARY | ~2019-07-31 | XMS | Encounter Summary ---
Demographics + + + | Address | [address] | | | [place] [address] | + + + | Home Phone [...] [place] | | | | | [address] | | + + + + + | Christy Flaherty | ECON | [address] | | | | | [place] | | | | | [address] | | + + + + + Care Team Providers + +------+ + | Care Fisheries Management Biologist Name | Role | Phone | + +------+ + | Juan Demarco MD | PCP | | + +------+ + Encounter Details +--------+ + + + + | Date | Type | Department | Care Team | Description | +--------+ + + + + | 10/19/ | Orders Only | [facility] | Juan Manuel Sams | | | 2015 | | NEUROLOGY [address] | MD [address] | | | | | [address] | [address] | | | | | [place] | [place] [address] | | | | | [address] | [phone] | | | | | [phone] | | | +--------+ + + + [...] 1.023 | | EXTERNAL | | | [place], | | | LAB | | | [...]
--- OUTSIDE RECORDS SUMMARY | ~2019-07-31 | XMS | Encounter Summary ---
Demographics + + + | Address | [address] | | | [place] [address] | + + + | Home Phone | | + + + | Preferred Language | Unknown | + + + | Marital Status | | + + + | Adventism Affiliation | 1061 | + + + | Race | Unknown | + + + | Ethnic Group | Unknown | + + + Author + + + | Author | [facility] | | | and [place] | + + + | Organization | [facility] | | | [...] [place] | | | | | [address] | | + + + + + | Christy Flaherty | ECON | [address] | | | | | [place] | | | | | [address] | | + + + + + Care Team Providers + +------+ + | Care Aerial Installer Name | Role | Phone | + +------+ + | Juan Demarco MD | PCP | | + +------+ + Encounter Details +--------+ + + + + | Date | Type | Department | Care Team | Description | +--------+ + + + + | 12/31/ | Orders Only | [facility] | Conversion | | | 2014 | | INFECTIOUS DISEASE | Transaction, | | | | | [address] | Provider Unknown | | | | | [place], [place] | | | | | | [address] | (Fax) | | | | | [phone] | | | +--------+ + + + [...]
--- OUTSIDE RECORDS SUMMARY | ~2019-07-31 | XMS | Encounter Summary ---
Demographics + + + | Address | [address] | | | [place] [address] | + + + | Home Phone | | + + + | Preferred Language | Unknown | + + + | Marital Status | | + + + | Jainism Affiliation | ASG | + + + [...] [place] | | | | | [address] | | + + + + + Care Team Providers + +------+ + | Care Cognos Lead Name | Role | Phone | [...] (Referral | | 2016 | on | [facility] & | [address] | to ) | | | | Healing [address] | Jayshree Santillan [place], | | | | | Deborah Mailcode: CH8C | [place] [address] | | | | | [facility] | [phone] | | | | | and Healing, | | | | | | Building | | | | | | [place], [place] | | | | | | [address] | | | | | | [phone] | | | +--------+ + + + [...]
--- OUTSIDE RECORDS SUMMARY | ~2019-07-31 | XMS | Encounter Summary ---
Demographics + + + | Address | [address] | | | [place] [address] | + + + | Home Phone [...] [place] | | | | | [address] | | + + + + + Care Team Providers + +------+ + | Care Marketing Copywriter Name | Role | Phone | + [...] | | | | | Procedures | [facility] | Mailcode: | | | | | CT | Rd | [facility] Center | | | | | MULTIPHASE | [place], [place] | for Health | | | | | PANCREAS AND | [address] | and Healing, | | | | | PELVIS [address] IV | Phone: | Building 1, | | | | | CONTRAST | [phone] | 3rd Floor | | | | | [address] | Fax: | [facility] [place] | | | | | ABD&PELV 1+ | [phone] | [address] | | | | | SECTION/REGN | | Phone: | | | | | S | | [phone] | | | | | | | Fax: | | | | | | | [phone] | +--------+--------+ + + + + Reason [...] | | | | | Procedures | [facility] | Mailcode: | | | | | CT | Rd | [facility] | | | | | MULTIPHASE | [place], [place] | for Health | | | | | PANCREAS AND | [address] | and Healing, | | | | | PELVIS [address] IV | Phone: | Building 1, | | | | | CONTRAST | [phone] | 3rd Floor | | | | | [address] | Fax: | [place], [place] | | | | | ABD&PELV 1+ | [phone] | [address] | | | | | SECTION/REGN | | Phone: | | | | | S | | [phone] | | | | | | | Fax: | | | | | | | [phone] | +--------+--------+ + + + + Encounter Details +--------+ + + + + | Date | Type | Department | Care Team | Description | +--------+ + + + + | 07/29/ | Hospital | Radiology/Imaging | Taiwo Tilley, | | | 2018 | Encounter | Lab at [facility] [address] | [address] | | | | | [address] Mailcode: | [address] | | | | | [facility] for | [place], [place] | | | | | Health and Healing, | [address] | | | | | Building 1, 3rd | [phone] | | | | | Floor [place], [place] | | | | | | [address] | | | | | | [phone] | | | +--------+ + + + [...]
--- OUTSIDE RECORDS SUMMARY | ~2019-07-31 | XMS | Encounter Summary ---
Demographics + + + | Address | [address] | | | [place] [address] | + + + | Home Phone [...] [place] | | | | | [address] | | + + + + + Care Team Providers + +------+ + | Care Mechanical Ordnance Assembler Name | Role | Phone | [...] [address] | | | | | ([facility]) To | Rd | Physician's | | | | | Dr. Horn or | [place], [place] | [address] | | | | | Dr. Edmonds | [address] | [address] | | | | | - Evaluate | Phone: | [place], [place] | | | | | for TPIAT | [phone] | [address] | | | | | candidacy. | Fax: | Phone: | | | | | Discussed | [phone] | [phone] | | | | | at chronic | | Fax: | | | | | pancreatitis | | [phone] | | | | | conference | [...] | | | | | | (ADULT) ME | | | | | | | NEW PATIENT | | | | | | | LEVEL V ME | | | | | | | [...] unspecified | | | | Center at [facility] | [facility] | complication status, | | | | [address] | [place], [place] | unspecified | | | | [address] | [address] | pancreatitis type | | | | Physician's Pavilion | [phone] | (Primary Dx) | | | | [address] [place], | | | | | | [place] [address] | | | | | | [phone] | | | +--------+---------+ + + + [...] Willard MD Referring Physician: Duy Kat MD [address] [place] [address] Reason for referral: Evaluate for TPIAT HPI: [...] life in general. Some ED visits to [facility], but no admissions for pancreatitis. His does [...] a real burden. Diet: previously loved hamburgers, kyrgyz fries, but now eliminated most fatty foods from d iet, eats a lot of fruits, vegetables. Weight: Weight variable between 265-220, does go down with pancreatitis pain is flaring up . 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 Allergies: Allergies Allergen Reactions Piroxicam Rash Pt mentions he developed a rash while on this medication. Resolved immediately upon disco ntinue. Amitiza [Lubiprostone] Cough Meloxicam Diarrhea Bowel incontinence Vglbsnr-Nuj-Zoh Reductase Inhibitors Seizures Increased frequency of seizures, [...] file Gets together: Not on file Attends jew service: Not on file Active member of [...] for: MICROALBUMIN Lab Results Component Value Date [id number] 15.9 02/08/2019 Assessment: 53 y.o. here for [...] plans with our clinic (1-2 months bef [facility] for diabetes education, 2 weeks before for MMT, then 3,6,then yearly MMT after omar potter. We discussed briefly 1 and 10 year outcomes after TPIAT from [facility] data ( J Am Jill Surg. [...] to proceed with TPIAT. Maryana Edmonds MD [facility] Division of Endocrinology Pager [phone] documented in this enc ounter Plan of Treatment Not on filedocumented as of this encounter Visit Diagnoses + + | Diagnosis | + + | Acute pancreatitis, unspecified complication status, unspecified pancreatitis type - | | Primary | + + documented in this encounter
--- OUTSIDE RECORDS SUMMARY | ~2019-07-31 | XMS | Encounter Summary ---
Demographics + + + | Address | [address] | | | [place] [address] | + + + | Home Phone [...] [place] | | | | | [address] | | + + + + + Care Team Providers + +------+ + | Care Preschool Disability Teacher Name | Role | Phone | [...] | 2019 | Encounter | Center at [facility] [address] | [address] | | | | | [address] | [address] | | | | | Mailcode: Center | [place], [place] | | | | | for Health and | [address] | | | | | Healing, Building 2 | [phone] | | | | | [place], [place] | | | | | | [address] | | | | | | [phone] | | | +--------+ + + + [...]
--- OUTSIDE RECORDS SUMMARY | ~2019-07-31 | XMS | Encounter Summary ---
Demographics + + + | Address | [address] | | | [place] [address] | + + + | Home Phone [...] [place] | | | | | [address] | | + + + + + | Christy Flaherty | ECON | [address] | | | | [place] | | | | | [address] | | + + + + + Care Team Providers + +------+ + | Care Licensed Nuclear Control Room Operator Name | Role | Phone | + +------+ + PCP | Unavailable | + +------+ + Encounter Details +--------+ + + + + | Date | Type | Department | Care Team | Description | +--------+ + + + + | 02/09/ | Hospital | [facility] | | | | 2003 | Encounter | MED CTR SLEEP | | | | | | CENTER [address] | | | | | | [place] | | | | | | [address] | | | | | | [phone] | | | +--------+ + + + [...]
--- OUTSIDE RECORDS SUMMARY | ~2019-07-31 | XMS | Encounter Summary ---
Demographics + + + | Address | [address] | | | [place] [address] | + + + | Home Phone | | + + + | Preferred Language | Unknown | + + + | Marital Status | | + + + | Spiritism Affiliation | ASG | + + + | Race | White | + + + | Ethnic Group | Not or | + + + Author + + + | Author | [facility] | + + + | Organization | [facility] | + + + | Address | Unknown | + + + | Phone | Unavailable | + + + Support + + + + + | Name | Relationship | Address | Phone | + + + + + | Christy Flaherty | ECON | [address] | | | | | [place] | | | | | [address] | | + + + + + Care Team Providers + +------+ + | Care Therapeutic Case Manager Name | Role | Phone | [...] | | | | | | [facility] | | | | | | Health and Healing, | | | | | | [facility] | | | | | | Floor [place], [place] | | | | | | [address] | | | | | | [phone] | | | +--------+ + + + [...]
--- OUTSIDE RECORDS SUMMARY | ~2019-07-31 | XMS | Encounter Summary ---
Demographics + + + | Address | [address] | | | [place] [address] | + + + | Home Phone [...] [place] | | | | | [address] | | + + + + + Care Team Providers + +------+ + | Care Supervisor Alteration Workroom Name | Role | Phone | + [...] (Epilepsy | | 2016 | on | [facility] & | [address] | monitoring unit | | | | Healing [address] | [place], [place] | discharge letter) | | | | Ave Mailcode: [facility] | [address] | | | | | [facility] | [phone] | | | | | and Healing, | | | | | | [facility] | | | | | | [place], [place] | | | | | | [address] | | | | | | [phone] | | | +--------+ + + + [...]
--- OUTSIDE RECORDS SUMMARY | ~2019-07-31 | XMS | Encounter Summary ---
Demographics + + + | Address | [address] | | | [place] [address] | + + + | Home Phone [...] [place] | | | | | [address] | | + + + + + Care Team Providers + +------+ + | Care Shagger Name | Role | Phone | + [...] | | pancreatitis | [address] | [address] | | | | | ([facility]) | Rd | [address] | | | | | Procedures | [place], [place] | floor | | | | | CONSULT TO | [address] | [place], [place] | | | | | GI PROCEDURE | Phone: | [address] | | | | | UNIT: EUS | [phone] | Phone: | | | | | LIMITED [place] | Fax: | [phone] | | | | | ANESTH UPPER | [phone] | Fax: | | | | | GI | | [phone] | | | | | ENDOSCOPIC | | | | | | | VISUALIZE | | | | | | | [place] UPPR GI | | | | | [...] | | | | | Elevated | [place], [place] | Health and | | | | | lipase | [address] | Healing, | | | | | Procedures | Phone: | Building 2 | | | | | CONSULT TO | [phone] | [facility] [place] | | | | | GASTROENTERO | Fax: | [address] | | | | | [place] | [phone] | Phone: | | | | | | | [phone] | | | | | | | Fax: | | | | | | | [phone] | +--------+--------+ + + + + Encounter Details +--------+---------+ + + + | Date | Type | Department | Care Team | Description | +--------+---------+ + + + | 03/11/ | Office | Digestive Health | Taiwo Tilley, | 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 [facility]. On one or two [...] 6 week with no resolution. He has [place] 1 stools. He is non-smoker (ex-smoker) and [...] upon disco ntinue. Meloxicam Diarrhea Bowel incontinence Drqkfig-Gqd-Plv Reductase Inhibitors Seizures Increased frequency of seizures, [...]
--- OUTSIDE RECORDS SUMMARY | ~2019-07-31 | XMS | Clinical Summary ---
Demographics + + + | Address | [address] | | | [place] [address] | + + + | Home Phone | | + + + | Preferred Language | Unknown | + + + | Marital Status | | + + + | Restorationist Affiliation | 1061 | + + + | Race | Unknown | + + + | Ethnic Group | Unknown | + + + Author + + + | Author | [facility] (Historical as of | | | 11-12-18) | + + + | Organization | [facility] (Historical as of | | | 11-12-18) [...] [place] | | | | | [address] | | + + + + + Care Team Providers + +------+ + | Care Continuous Improvement Consultant Name | Role | Phone | [...] +------+-------+ + | MEDICAID | [place] | [id number] | | | [address] | | | N | | | | [place] | | | [place] | | | | [address] | | | COT ASSEMBLER | | | | | + +--------+ [...] | Self | [birth year] | Home: | [address] [place] [address] | | | al/Fam | | [phone] | [phone] | [place] | | | eladio | | | [phone] | [address] | + +--------+ +--------+ + +
--- OUTSIDE RECORDS SUMMARY | ~2019-07-31 | XMS | Encounter Summary ---
Demographics + + + | Address | [address] | | | [place] [address] | + + + | Home Phone [...] [place] | | | | | [address] | | + + + + + Care Team Providers + +------+ + | Care Life Advisor Name | Role | Phone | + +------+ + | Jarvis Willard MD | PCP | | + +------+ + Encounter Details +--------+ + + + + | Date | Type | Department | Care Team | Description | +--------+ + + + + | 04/27/ | Documentati | LAB CORE [address] | Taiwo Tilley, | | | 2018 | on | [address] | [address] | | | | | [place], [place] | [address] | | | | | [address] | [place], [place] | | | | | [phone] | [address] | | | | | | [phone] | | | | | | | [...]
--- OUTSIDE RECORDS SUMMARY | ~2019-07-31 | XMS | Encounter Summary ---
Demographics + + + | Address | [address] | | | [place] [address] | + + + | Home Phone [...] + + | Author | [facility] | | | and [place] | + + + | Organization | [facility] | | | [...] [place] | | | | | [address] | | + + + + + | Christy Flaherty | ECON | [address] | | | | | [place] | | | | | [address] | | + + + + + Care Team Providers + +------+ + | Care Data Communications Analyst Name | Role | Phone | + +------+ + PCP | Unavailable | + +------+ + Encounter Details +--------+ + + + + | Date | Type | Department | Care Team | Description | +--------+ + + + + | 11/20/ | Hospital | [facility] | | | | 2003 | Encounter | MED CTR GENERIC OP | | | | | | CONV DEPT [address] | | | | | | [place], | | | | | | [place] [address] | | | | | | [phone] | | | +--------+ + + + [...]
--- OUTSIDE RECORDS SUMMARY | ~2019-07-31 | XMS | Encounter Summary ---
Demographics + + + | Address | [address] | | | [place] [address] | + + + | Home Phone [...] [place] | | | | | [address] | | + + + + + Care Team Providers + +------+ + | Care Porcelain Enameler Name | Role | Phone | + +------+ + | Filippo Chen DO | PCP | | + +------+ + Encounter Details +--------+ + + + + | Date | Type | Department | Care Team | Description | +--------+ + + + + | 12/16/ | Documentati | Neurology at | Amador Mayorga N, | | | 2016 | on | [facility] & | ROAD SIGN INSTALLER [address] | | | | | Healing [address] | [address] | | | | | Ave Mailcode: CH8C | [place], [place] | | | | | [facility] | [address] | | | | | and Healing, | [phone] | | | | | [facility] | | | | | | Floor [place], [place] | | | | | | [address] | | | | | | [phone] | | | +--------+ + + + [...]
--- OUTSIDE RECORDS SUMMARY | ~2019-07-31 | XMS | Encounter Summary ---
Demographics + + + | Address | [address] | | | [place] [address] | + + + | Home Phone [...] [place] | | | | | [address] | | + + + + + | Christy Flaherty | ECON | [address] | | | | | [place] | | | | | [address] | | + + + + + Care Team Providers + +------+ + | Care Summer Internship Name | Role | Phone | + +------+ + | Juan Demarco MD | PCP | | + +------+ + Encounter Details +--------+ + + + + | Date | Type | Department | Care Team | Description | +--------+ + + + + | 04/08/ | Orders Only | [facility] | Sol Fonseca, | | | 2016 | | CARDIOLOGY BRITNEY | [address] | | | | | [address] | [address] [place], [place] | | | | | [place], [place] | [address] | | | | | [address] | [phone] | | | | | [phone] | | | +--------+ + + + [...]
--- OUTSIDE RECORDS SUMMARY | ~2019-07-31 | XMS | Encounter Summary ---
Demographics + + + | Address | [address] | | | [place] [address] | + + + | Home Phone [...] [place] | | | | | [address] | | + + + + + Care Team Providers + +------+ + | Care Dot Compliance Specialist Name | Role | Phone | [...]
--- OUTSIDE RECORDS SUMMARY | ~2019-07-31 | XMS | Encounter Summary ---
Demographics + + + | Address | [address] | | | [place] [address] | + + + | Home Phone [...] [place] | | | | | [address] | | + + + + + [...] (Referral | | 2016 | on | [facility] & | [address] | to ) | | | | Healing [address] | Jayshree Santillan CENTER [place], | | | | | Deborah Mailcode: CH8C | [place] [address] | | | | | [facility] | [phone] | | | | | and Healing, | | | | | | Building | | | | | | [place], [place] | | | | | | [address] | | | | | | [phone] | | | +--------+ + + + [...]
--- OUTSIDE RECORDS SUMMARY | ~2019-07-31 | XMS | Encounter Summary ---
Demographics + + + | Address | [address] | | | [place] [address] | + + + | Home Phone [...] [place] | | | | | [address] | | + + + + + Care Team Providers + +------+ + | Care Litharge Mill Operator Name | Role | Phone [...] | | 2018 | | Center at [facility] 3485 | [address] [facility] | Received (05/07/2017 | | | | Ivy Cabrera | [address] | Serum Trypsin | | | | Mailcode: Center | [place], [place] | Results- [employer]) | | | | for Health and | [address] | | | | | [facility] 2 | [phone] | | | | | [place], [place] | | | | | | [address] | | | | | | [phone] | | | +--------+ + + + [...]
--- OUTSIDE RECORDS SUMMARY | ~2019-07-31 | XMS | Encounter Summary ---
Demographics + + + | Address | [address] | | | [place] [address] | + + + | Home Phone [...] [place] | | | | | [address] | | + + + + + | Christy Grande | ECON | [address] | | | | | [place] | | | | | [address] | | + + + + + Care Team Providers + +------+ + | Care Inspector Sheet Metal Parts Name | Role | Phone | + +------+ + | Juan Demarco MD | PCP | | + +------+ + Encounter Details +--------+ + + + + | Date | Type | Department | Care Team | Description | +--------+ + + + + | 09/02/ | Hospital | [facility] | Aure Brooks | Localized skin mass, | | 2012 | Encounter | MED CTR XRAY [address] | MD Janel [address] | lump, or swelling | | | | [place] | [address] [place] | | | | | [place] [address] | [place] [address] | | | | | [phone] | [phone] | | | | | | | [...] Performed At | + + + | Located Within [facility] Diagnostic Imaging | [place] | | Department [address] [facility] | | [ rep [address]] [ rep [facility] | | [facility]] Signed | - IMAGING | | | | | Patient Name: JOHNNY GRANDE Physician: | | | BROOKE.Jesus : 1965 Age: 47 Sex: M Unit #: [id number] | | | Exam Date: 09/02/12 Location: [facility] [place] | | | Report #: [id number] Page: | | | %(RAD)RES..mtdd.print.filter("pg") of %(RAD) | | | RES..mtdd.print.filter("tpg") | | | | | | Accession Number: [id number] | | | THREE VIEWS RIGHT HAND, [...] Transcribed Date/Time: 09/02/2012 | | | 21:21 Vice President Risk Management: <<Signature | | | on File>> | | | Rojas Solorio | | | MD Robson09/02/12 1370 <Electronically signed by Rojas Chance MD> | | | Rojas Chance MD 09/02/12 1220 Vice President Risk Management: | | | Beeline [id number] | | + + + + + + + + | Performing | Address | City/State/Zipcode | Phone Number | | Organization | | | | + + + + + | [address] | [address] | [place] | [phone] | | [facility] | | [address] | | | - IMAGING | | | | + + + + + documented in this encounter Visit Diagnoses + + | Diagnosis | + + | Localized skin mass, lump, or swelling Localized superficial swelling, mass, or lump | + + documented in this encounter
--- OUTSIDE RECORDS SUMMARY | ~2019-07-31 | XMS | Encounter Summary ---
Demographics + + + | Address | [address] | | | [place] [address] | + + + | Home Phone [...] [place] | | | | | [address] | | + + + + + Care Team Providers + +------+ + | Care Curator Zoological Museum Name | Role | Phone | + [...] Records | | 2017 | on | [facility] & | G, DO [address] | Received (Dr. Chen | | | | Loretta [address] | [address] | records 03/29 - | | | | Deborah Mailcode: CH8C | [place], [place] | 12/03/2016) | | | | [facility] | [address] | | | | | and Loretta, | [phone] | | | | | [facility] | | | | | | [place], [place] | | | | | | [address] | | | | | | [phone] | | | +--------+ + + + [...]
--- OUTSIDE RECORDS SUMMARY | ~2019-07-31 | XMS | Encounter Summary ---
Demographics + + + | Address | [address] | | | [place] [address] | + + + | Home Phone [...] [place] | | | | | [address] | | + + + + + Care Team Providers + +------+ + | Care Biodiesel Product Development Manager Name | Role | Phone [...] Medical Records | | 2019 | | Enigma at [facility] [address] | [address] | Review | | | | Ivy Cabrera | [address] | | | | | Mailcode: Center | [place], [place] | | | | | for Health and | [address] | | | | | [facility] 2 | [phone] | | | | | [place], [place] | | | | | | [address] | | | | | | [phone] | | | +--------+ + + + [...]
--- OUTSIDE RECORDS SUMMARY | ~2019-07-31 | XMS | Encounter Summary ---
Demographics + + + | Address | [address] | | | [place] [address] | + + + | Home Phone [...] [place] | | | | | [address] | | + + + + + Care Team Providers + +------+ + | Care Plaster Mold Maker Name | Role | Phone | + +------+ + | Jarvis Willard MD | PCP | | + +------+ + Encounter Details +--------+ + + + + | Date | Type | Department | Care Team | Description | +--------+ + + + + | 04/27/ | Documentati | LAB CORE [address] | Taiwo Tilley, | | | 2018 | on | [address] | [address] | | | | | [place], [place] | [address] | | | | | [address] | [place], [place] | | | | | [phone] | [address] | | | | | | [phone] | | | | | | | [...]
--- OUTSIDE RECORDS SUMMARY | ~2019-07-31 | XMS | Encounter Summary ---
Demographics + + + | Address | [address] | | | [place] [address] | + + + | Home Phone [...] [place] | | | | | [address] | | + + + + + Care Team Providers + +------+ + | Care Volunteer Recruitment Coordinator Name | Role | Phone | [...] | pancreatitis (HCC) | | | | [place], [place] | | | | | | [address] | | | | | | [phone] | | | +--------+------+ + + + [...] | | | | | | by Portable Internet,500 | | | | | | Cl Dean [facility] | | | | | | [address] | | | | | | [phone].[employer]. | | | | | | Rehan [...] [facility] | [address] | [place], [place] | | | UNIV PTH - INTFC | | [address] | | + + + + + [...] | + + + + + | [facility] | [address] | [place] [address] | | | SERVICES, [place] [facility] | | | | | HEALTH [...] | REFERENCE | | | | [place] [address] | | LAB | | | | [phone] | | | | | | | | | | | | [employer] | | | | | | | [...] | [facility] | | considered for monitoring senior living glycemic control in patients with: | LABORATORY [...] [facility] | [address] | [place] [address] | | | SERVICES, SPECIAL | JEROME [...] | | | this test in the Data Expedition | | | | | | Laboratory Test | | | | | | Directory | | | | | | ([employer].Kaseya).Performed | | | | | | by Portable Internet,500 | | | | | | [address], [facility] | | | | | | [address] | | | | | | [phone].[employer]. | | | | | | [facility], Rehan Paris MD, | | [...] [facility] | [address] | [place], [place] | | | UNIV PTH - INTFC | | [address] | | + + + + + [...] [facility] | [address] | [place] [address] | | | SERVICES, CORE | PARK [...] [facility] | | | (CORKY GENOVEVA) | Portable Internet,500 | | REG UNIV | | | SERUM | Cl [address], [facility] | | PTH - INTFC | | | | [address] | | | | | | [phone].[employer]. | | | | | | comRehan [...] B: | | | | | | Think Realtime/CS | | | | + + + + + + + + | Specimen | + + | Blood - Blood | | (substance) | + + + + + + + | Performing | Address | City/State/Zipcode | Phone Number | | Organization | | | | + + + + + | [facility] | [address] | [place], [place] | | | UNIV PTH - INTFC | | [address] | | + + + + + [...] B: | | | | | | [employer].Kaseya/CSPerformed | | | | | | by Portable Internet,500 | | | | | | [facility] | | | | | | [address] | | | | | | [phone].[employer]. | | | | | | com, Rehan Paris MD, | | | | | | Lab. Director | | | | + + + + + + + + | Specimen | + + | Blood - Blood | | (substance) | + + + + + + + | Performing | Address | City/State/[facility] | Phone Number | | Organization | | | | + + + + + | [facility] | [address] | [place], [place] | | | UNIV PTH - INTFC | | [address] | | + + + + + [...] [facility] | [address] | [place] [address] | | | JAMISON WORKMAN | JEROME [...] | + + + + + | [facility] | [address] | [place] [address] | | | SERVICES, CORE | JEROME [...] | + + + + + | [facility] | [address] | [place] [address] | | | SERVICES, CORE | JEROME [...] INTFC | | | | determined by Data Expedition | | | | | | Cover. See | | | | | | Compliance Statement B: | | | | | | [employer].Kaseya/CSPerformed | | | | | | by Portable Internet,500 | | | | | | Cl Dean [facility] | | | | | | [address] | | | | | | [phone].[employer]. | | | | | | comRehan [...] [facility] | [address] | [place], [place] | | | UNIV PTH - INTFC | | [address] | | + + + + + [...] B: | | | | | | Think Real[employer]/CSPerformed | | | | | | by Portable Internet,500 | | | | | | [address] Dean, [facility] | | | | | | [address] | | | | | | [phone].[employer]. | | | | | | [facility] hospital[facility] MD, | | | | [...] [facility] | [address] | [place], [place] | | | UNIV PTH - INTFC | | [address] | | + + + + + [...] + + | [facility] | [address] | [place] [address] | | | SERVICES, CORE | PARK [...] | + + + + + | [facility] | [address] | [place] [address] | | | SERVICES, CORE | PARK [...] [facility] | [address] | [place] [address] | | | SERVICES, CORE | JEROME [...] | + + + + + | [facility] - | [address] | [place] [address] | | | [place] | | | | + + + [...] | | | LABORATORY | | | [place]IAN | | | SERVICES, | | | [...] SERVICES, | | | | | | [place] [facility] | | | | | | [...] | + + + + + | [facility] | [address] | [place] [address] | | | SERVICES, [facility] | | | | | HEALTH + HEALING | | | | + + + + + documented in this encounter Visit Diagnoses + + | Diagnosis | + + | Idiopathic chronic pancreatitis (HCC) | + + documented in this encounter"
--- OUTSIDE RECORDS SUMMARY | ~2019-07-31 | XMS | Encounter Summary ---
Demographics + + + | Address | [address] | | | [place] [address] | + + + | Home Phone [...] [place] | | | | | [address] | | + + + + + Care Team Providers + +------+ + | Care Loan Originator Name | Role | Phone | + [...]
--- OUTSIDE RECORDS SUMMARY | ~2019-07-31 | XMS | Encounter Summary ---
Demographics + + + | Address | [address] | | | [place] [address] | + + + | Home Phone [...] [place] | | | | | [address] | | + + + + + | Christy Grande | ECON | [address] | | | | | [place] | | | | | [address] | | + + + + + Care Team Providers + +------+ + | Care Ring Barker Operator Name | Role | Phone | [...] [place] | | | | | [place], [place] | [address] | | | | | [address] | [phone] | | | | | [phone] | | | +--------+ + + + [...] | | | function. 4. There is ixvu-mm-sxejgiju aortic regurgitation. 5. In | | | [...] function. 4. There | | | is munc-fa-bhefeuwx aortic regurgitation. 5. In comparison to the [...] | | | Aortic Valve: There is qbya-ml-ppjvgfgc aortic regurgitation, | | | decreased from [...] 0.45 m/s | | | MV Dec Baca: 2.84 m/s2 MV DecT: 216.66 ms MV E George: 0.61 | | | m/s MV E/A Ratio: 1.36 MV PHT: 62.83 ms MVA By PHT: 3.50 | | | cm2 Septal e': 0.06 m/s Septal E/e': 8.91 Lateral e': 0.08 | | | m/s Lateral E/e': 7.04 TR maxP.53 mmHg TR Vmax: 1.77 | | | m/s RV s': 0.09 m/s Coal Hauler Operator: COURT Authenticated by: | | | Sarthak [...] normal in size and function.4. There is tnma-sx-uxybtqcb aortic regurgitation. 5. In | | comparison [...] on a previous KRAIG.Aortic Valve: There is gshp-rq-ybchxzdn aortic regurgitation, | | decreased from moderate [...] | 5.55 cmLVPWd: 0.78 cmLVOT Area: 3.90 xr5FHTB Diam: 2.22 cm%FS: 21.16 %EF(Teich): | | 42.51 %ESV(Teich): 86.63 mlLVIDs: 4.37 cmSV(Teich): 64.06 mlRV Major: 8.82 | | cmRV Minor: 3.15 cmLVEF MOD A4C: 57.64 %SV MOD A4C: 113.24 mlLVEDV MOD A4C: | | 196.46 mlLVLd A4C: 9.01 cmLVESV MOD A4C: 83.21 mlLVLs A4C: 8.29 cmLAESV(A-L): | | 48.21 mlLAESV Index (A-L): 20.96 ml/m2LAAs A2C: 16.67 ag2KDOSS A-L A2C: 52.96 | | mlLALs A2C: 4.45 cmLAAs A4C: 15.18 fs4APHGJ A-L A4C: 41.97 mlLALs A4C: 4.66 | | cmRAAs: 11.25 bp7GGTFN A-L: 24.67 mlRAESV MOD: 24.34 mlRALs: 4.35 cmTAPSE: | | 2.25 cmAV maxP.73 mmHgAV meanP.49 mmHgAV Vmax: 1.78 m/Stormy Vmean: 1.19 | | m/Stormy VTI: 38.51 cmAVA Vmax: 1.78 cm2AVA (VTI): 2.07 fz8LHPW (Vmax): 0.00 | | cm2/m2AVAI (VTI): 0.00 cm2/m2LVOT maxP.67 mmHgLVOT meanP.41 mmHgLVSI Dopp: | | 34.67 ml/m2LVSV Dopp: 79.74 mlLVOT Vmax: 0.81 m/sLVOT Vmean: 0.56 m/sLVOT VTI: | | 20.44 cmMV A George: 0.45 m/sMV Dec Baca: 2.84 m/s2MV DecT: 216.66 msMV E George: | | 0.61 m/sMV E/A Ratio: 1.36MV PHT: 62.83 msMVA By PHT: 3.50 fu0Szvzah e': 0.06 | | m/sSeptal E/e': 8.91Lateral e': 0.08 m/sLateral E/e': 7.04TR maxP.53 mmHgTR | | Vmax: 1.77 m/sRV s': 0.09 m/s Coal Hauler Operator: DBSAuthenticated by: Sarthak Busby | | LehrReport Date/Time: 08-03-2018 19:45:5 IMPRESSION: 1. This was a technically difficult | | study with suboptimal views.2. Overall left ventricular systolic function is low-normal | | with an EF between 50 - 55 %.3. The right ventricle is normal in size and function.4. | | There is attx-bc-zriffuts aortic regurgitation. 5. In comparison to the [...] A George: 0.45 m/s | |MV Dec Baca: 2.84 m/s2 | |MV DecT: 216.66 ms [...] |RV s': 0.09 m/s | | | |Coal Hauler Operator: DBS | |Authenticated by: Sarthak Lucia | |Report Date/Time: 5-8-2019 19:45:5 | | | |IMPRESSION: | |1. This was a technically difficult study with suboptimal views. | |2. Overall left ventricular systolic function is low-normal with an EF between 50 - 55 %. | |3. The right ventricle is normal in size and function. | |4. There is mnhk-aq-jmkrebqu aortic regurgitation. 5. In comparison to the previous echocar diographic study, done 07/20/16, only minor changes are noted, as reported below. | + + documented in this encounter Visit Diagnoses Not on filedocumented in this encounter"
--- OUTSIDE RECORDS SUMMARY | ~2019-07-31 | XMS | Encounter Summary ---
Demographics + + + | Address | [address] | | | [place] [address] | + + + | Home Phone [...] [place] | | | | | [address] | | + + + + + Care Team Providers + +------+ + | Care Brimming Machine Operator Name | Role | Phone [...] | Order | [address] | [place], [place] | | | | | [address] | [address] | | | | | [address] [place], | | | | | | 4th floor [place], | | | | | | [place] [address] | | | | | | [phone] | | | +--------+ + + + [...]
--- OUTSIDE RECORDS SUMMARY | ~2019-07-31 | XMS | Encounter Summary ---
Demographics + + + | Address | [address] | | | [place] [address] | + + + | Home Phone [...] [place] | | | | | [address] | | + + + + + Care Team Providers + +------+ + | Care Bushing And Broach Operator Name | Role | Phone | [...] | | | | with complex | [place], [place] | [place], [place] | | | | | partial | [address] | [address] | | | | | seizures, | Phone: | Phone: | | | | | intractable, | [phone] | [phone] | | | | | without | Fax: | Fax: | | | | | status | [phone] | [phone] | | | | | epilepticus | | | | | | | ([facility]) | | | | | | | [...] for | | 2016 | Visit | [facility] & | MD | long-term current | | | | Healing [address] | | use of medication | | | | Ave Mailcode: CH8C | | (Primary Dx); | | | | Center for [facility] | | Localization-related | | | | and Healing, | | 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 [facility] Note Author: Noe Arambula MD Date/Time: 09/05/2015 2:55 PM Requesting Attending: Sylvia Triana MD HPI: Daysi Flaherty is a 50 year old right-handed man who is being seen in [facility] for evaluation of surgical [...] took him t o the hospital in [place]. They did an MRI which was initially [...] referred to his neurologist Dr. Estrada in [place]. He reviewed the MRI and saw a [...] in September 2014 an ID specialist in [facility] determined khadijah t he had Rheumatic [...] November 2014. Prior Evaluation: [facility] 2014 was normal. [facility] in 2014 showed the left mesial temporal [...] drugs Living situation: Lives with his in [place], [place] Marital Status: Education: Some college Work: [...] to light touch. Coordination and Gait: Normal wegoem-fsth-wdyqjb and qvej-zb-yqjj intact. Labs: Lab Results Component Value Date [...] right-handed man who is being seen in [facility] Ep[facility]psy [facility] for evaluation of surgical evaluation [...] signed on 09/05/2015 by Noe Arambula MD. Bench Technician Department of Neurology [facility] Comprehensive Epilepsy [facility] documented in this en [...] [facility] | [address] | [place] [address] | | | SERVICES, CORE | PARK [...] | | | LABORATORY | | | [place] | | | SERVICES, | | | [...] the MDRD equation recommended by the | [facility] | | National Kidney Disease Education Program. Estimated GFR | LABORATORY | | Interpretive Information: <60 mL/min/1.73 sq m | JAMISON WORKMAN | | Chronic Kidney Disease <15 mL/min/1.73 [...] | + + + + + | [facility] | [address] [facility] [address] | [place] [address] | | | JAMISON WORKMAN | [address]EROME [...]
--- OUTSIDE RECORDS SUMMARY | ~2019-07-31 | XMS | Encounter Summary ---
Demographics + + + | Address | [address] | | | [place] [address] | + + + | Home Phone [...] [place] | | | | | [address] | | + + + + + Care Team Providers + +------+ + | Care Temporary Receptionist Name | Role | Phone | [...] | | | | | | [facility] | | | | | | Health and Healing, | | | | | | [facility] [address] | | | | | | Floor [place], [place] | | | | | | [address] | | | | | | [phone] | | | +--------+ + + + [...]
--- OUTSIDE RECORDS SUMMARY | ~2019-07-31 | XMS | Encounter Summary ---
Demographics + + + | Address | [address] | | | [place] [address] | + + + | Home Phone [...] [place] | | | | | [address] | | + + + + + Care Team Providers + +------+ + | Care Dye Worker Name | Role | Phone | [...] and | | 2016 | Encounter | [facility] & | DO Lon [address] | Medications | | | | Healing [address] | [address] | | | | | Deborah Mailcode: CH8C | [place], [place] | | | | | [facility] | [address] | | | | | and Healing, | [phone] | | | | | [facility] | | | | | | Floor [place], [place] | | | | | | [address] | | | | | | [phone] | | | +--------+ + + + [...]
--- OUTSIDE RECORDS SUMMARY | ~2019-07-31 | XMS | Encounter Summary ---
Demographics + + + | Address | [address] | | | [place] [address] | + + + | Home Phone [...] [place] | | | | | [address] | | + + + + + Care Team Providers + +------+ + | Care Cow Rider Name | Role | Phone | + +------+ + | Jarvis Willard MD | PCP | | + +------+ + Encounter Details +--------+ + + + + | Date | Type | Department | Care Team | Description | +--------+ + + + + | 05/08/ | MyChart | Food and Nutrition | [address] | [facility] | | 2020 | Encounter | Services at [facility] | Ivy Fonseca | Referral | | | | [address] | [address], | | | | | Gonz[place] Fonsec[place] | [place] [address] | | | | | [place], [facility] Floor | | | | | | [place], [place] | | | | | | [address] | | | | | | [phone] | | | +--------+ + + + [...]
--- OUTSIDE RECORDS SUMMARY | ~2019-07-31 | XMS | Encounter Summary ---
Demographics + + + | Address | [address] | | | [place] [address] | + + + | Home Phone [...] [place] | | | | | [address] | | + + + + + Care Team Providers + +------+ + | Care Remediation Bioanalytics Consultant Name | Role | Phone | + +------+ + | Filippo Chen DO | PCP | | + +------+ + Reason for Visit + + + | Reason | Comments | + + + | Pre-Admission | [facility] | + + + | Epilepsy | track maintainer; chart review and pre-admin assessment | + + + Encounter Details +--------+ + + + + | Date | Type | Department | Care Team | Description | +--------+ + + + + | 10/01/ | Telephone | Neurology at | [place], | Pre-Admission ([facility] | | 2016 | | [facility] & | [facility] [address] | ); Epilepsy (RN | | | | Healing [address] | [facility] | Navigator; chart | | | | Ave Mailcode: [address] | [place], [place] | review and pre-admin | | | | [facility] | [phone] | assessment) | | | | and Healing, | | | | | | [address] | | | | | | [place], [place] | | | | | | [address] | | | | | | [phone] | | | +--------+ + + + [...]
--- OUTSIDE RECORDS SUMMARY | ~2019-07-31 | XMS | Encounter Summary ---
Demographics + + + | Address | [address] | | | [place] [address] | + + + | Home Phone [...] [place] | | | | | [address] | | + + + + + Care Team Providers + +------+ + | Care Firewood Cutter Name | Role | Phone | [...] | | pain | Jayshree Santillan | [place] [facility] | | | | | Elevated | [place], [place] | Health and | | | | | lipase | [address] | Healing, | | | | | Procedures | Phone: | Building 2 | | | | | CONSULT TO | [phone] | [facility] [place] | | | | | GASTROENTERO | Fax: | [address] | | | | | LOGY | [phone] | Phone: | | | | | | | [phone] | | | | | | | Fax: | | | | | | | [phone] | +--------+--------+ + + + + Diagnostic [...] | | | | WWO IV | [place], [place] | for Health | | | | | [place] | [address] | and Healing, | | | | | CT SCAN OF | Phone: | Building 1, | | | | | ABDOMEN | [phone] | 3rd Floor | | | | | COMBO | Fax: | [place], [place] | | | | | | [phone] | [address] | | | | | | | Phone: | | | | | | | [phone] | | | | | | | Fax: | | | | | | | [phone] | +--------+--------+ + + + + Encounter Details +--------+ + + + + | Date | Type | Department | Care Team | Description | +--------+ + + + + | 02/24/ | Brass Pourer | Endoscopic | Paras Baker | Pancreatic mass | | 2017 | | Procedural Unit at | MD Ania [address] | (Primary Dx); | | | | [address] [place] [address] | Epigastric pain; | | | | [address] | [facility], [place] | Elevated lipase | | | | [address] [place], | [address] | | | | | 4th floor [place], | [phone] | | | | | [place] [address] | | | | | | [phone] | | | +--------+ + + + [...] ABDOMEN WWO IV CONTRAST (03/11/2017 11:16 AM RUST) + + | Specimen | + + [...] Note | + + | Service Account, [employer] In Interface - 02/25/2017 5:25 PM PST [...]
--- OUTSIDE RECORDS SUMMARY | ~2019-07-31 | XMS | Encounter Summary ---
Demographics + + + | Address | [address] | | | [place] [address] | + + + | Home Phone [...] [place] | | | | | [address] | | + + + + + Care Team Providers + +------+ + | Care Parachute Mender Name | Role | Phone | + [...] on | [facility] | [address] [facility] | Authorization | | | | [facility] | [facility] | | | | | [address] | [place], [place] | | | | | [address] | [address] | | | | | Phys[facility] | [phone] | | | | | [address] [place], | | | | | | [place] [address] | | | | | | [phone] | | | +--------+ + + + [...]
--- OUTSIDE RECORDS SUMMARY | ~2019-07-31 | XMS | Encounter Summary ---
Demographics + + + | Address | [address] | | | [place] [address] | + + + | Home Phone | | + + + | Preferred Language | Unknown | + + + | Marital Status | | + + + | Rastafari Affiliation | 1061 | + + + [...] [place] | | | | | [address] | | + + + + + | Christy Flaherty | ECON | [address] | | | | | [place] | | | | | [address] | | + + + + + Care Team Providers + +------+ + | Care Shellfish Processing Machine Tender Name | Role | Phone | + +------+ + | Juan Demraco MD | PCP | | + +------+ + Encounter Details +--------+ + + + + | Date | Type | Department | Care Team | Description | +--------+ + + + + | 11/07/ | Orders Only | [facility] | Conversion | | | 2015 | | INFECTIOUS DISEASE | Transaction, | | | | | [address] | Provider Unknown | | | | | [place], [place] | | | | | | [address] | (Fax) | | | | | [phone] | | | +--------+ + + + [...]
--- OUTSIDE RECORDS SUMMARY | ~2019-07-31 | XMS | Encounter Summary ---
Demographics + + + | Address | [address] | | | [place] [address] | + + + | Home Phone [...] [place] | | | | | [address] | | + + + + + Care Team Providers + +------+ + | Care Vendor Management Consultant Name | Role | Phone | [...] + + | 12/16/ | Hospital | [facility] [address] | Carla Chicas MD | | | 2016 - | Encounter | [address] [facility] | [address] [facility] | | | | | [place] | [facility], | | | 12/22/ | | [facility]D | [place] [address] | | | 2015 | | [place], [place] | [phone] | | | | | [address] | | | | | | [phone] | Anthony De La O MD | | | | | | [address] | | | | | | [place], [place] | | | | | | [address] | | | | | | [phone] | | | | | | | [...] attending physician. If you have access to [facility] Click[employer] this letter will be available in the Encounters tab labeled "Other-[facility] Discharge Summary" s hortly after the patient's discharge. Reason for Admission: Daysi Flaherty is a 50 y.o. male admitted for diagnostic 24-hour video EEG monitoring in the [facility] Comprehensive Epilepsy Monitoring Unit. Hospital Course: The [...] We treated the patient's tooth pain with Allen, magic mouthwash, Tylenol. We treated constipation with [...] was unremarkable. Daysi Flaherty Home Medication Instructions ENDER:[id number] Printed on:12/23/15 1020 Medication Information acetaminophen 325 mg oral tablet [...] 25 mg 25 mg oral Q6H PRN etwifraferSQNDH-pwxkdgscy-XNLYYV (SPECIAL MOUTHWASH) suspension (compound) 5-10 mL 5-1 [...] Details have been entered in a separate [facility] clinical neurophysiology procedure report. Assessment/Plan [...] to his being on valproate 3. Continue Allen for pain. 4. Telemetry monitoring given cardiac [...] reviewing the EEG record. Marita Hernandez MD,MPH Multimedia Assistant, Epilepsy Specialist [facility] Department of Neurology [facility] DEPARTMENT: Neurology Epilepsy Attending - [phone] Place of Service: Date of Service: 12/23/2015 CSN: [id number] Suggested Modifier: GC - Resident Present Suggested EEG CPT: 20865 - EEG Video, (12 - 24 hours) Suggested E/M and Procedure CPT: 58642 - Hospital Discharge, >30 minutes Suggested Diagnosis: [...] 25 mg 25 mg oral Q6H PRN mygomoazixCYDWA-ijtvlpwbo-NWARIX (SPECIAL MOUTHWASH) suspension (compound) 5-10 mL 5-1 [...] to his being on valproate 3. Continue Allen for pain. 4. Telemetry monitoring given cardiac [...] time spent reviewing the EEG re cord. [facility] DEPARTMENT: Neurology Epilepsy Attending - [id number] Place of Service: - Date of Service: 12/22/15 [facility]: [phone] Suggested Modifier: 25 - Separate E/M service performed by provider (or other presentation team member) on same day as procedure Suggested EEG CPT: 07995 - EEG Video, (12 - 24 hours) Suggested E/M and Procedure CPT: 61053 - Low complexity, (15 minutes >50% counseling [...] and has seen a sleep specialist in [place] who feels he has a high probabil [...] 25 mg 25 mg oral Q6H PRN vaudblhegnASCBT-suyifesxb-FPHWEY (SPECIAL MOUTHWASH) suspension (compound) 5-10 mL 5-1 [...] bid esteban nued outpt dosage 3. Continue Allen for pain. 4. Telemetry monitoring given cardiac [...] the time spent reviewing the EEG record. 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 His personal leaning is to [...] 4. Continue other home meds 5. Continue Allen for pain. 6. Telemetry monitoring given cardiac history and h/o GTCs 7. Neuropsych testing as an outpatient 8. He was going to have LTG started in August however his pharmacy never filled the rx. His n eurologist here at [facility] had then moved so it was never [...] Electronically signed Anthony De La O MD. 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 [...] to drive and is not working at [employer] time. His personal leaning is to [...] 4. Continue other home meds 5. Continue Allen for pain. 6. Telemetry monitoring given cardiac history and h/o GTCs 7. Neuropsych testing as an outpatient 8. He was going to have LTG started in August however his pharmacy never filled the rx. His n eurologist here at [facility] had then moved so it was never [...] Electronically signed Anthony De La O MD. 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 Continue other home meds 5. Continue Allen for pain. 6. Telemetry monitoring given cardiac history and h/o GTCs 7. neuropsych testing as an outpatient 8. He was going to have LTG started in August however his pharmacy never filled the rx. His n eurologist here at [facility] had then moved so it was never [...] Electronically signed Anthony De La O MD. [facility] DEPARTMENT: Neurology Epilepsy Attending - [id number] Place of Service: - Date of Service: 12/18/15 CSN: [id number] Suggested Modifier: 25 - Separate E/M service performed by provider (or other presentation team member) on same day as procedure Suggested EEG CPT: 26039 - EEG Video, (12 - 24 hours) Suggested E/M and Procedure CPT: 59544 - Moderate complexity, (25 minutes >50% counseling [...] Date of Test: 12/22/2015 Place of | [facility] | | Service: [facility] [phone] [facility] Department: EEG [facility] - | POINT OF CARE | | [phone] ELEMENTARY SCIENCE TEACHER VIDEO EEG Start Date/Time: 12/22/15 | TESTS | | End Date/Time: 12/23/15 Telemetry Number: [id number] Please refer to | | | the cumulative fci EEG report from the first day of this | | | recording period for results. | | + + + + + + + + | Performing | Address | City/State/Zipcode | Phone Number | | Organization | | | | + + + + + | [facility] | [address] | [place], [place] | | | [facility] | [address] | [address] | | | TESTS | | | [...] | | + +---------+ + + | [facility] DEPARTMENT OF | | | | | RADIOLOGY | | | | + +---------+ + + EEG CONTINUOUS, ADULT (12/21/2015) + + + | Narrative | Performed At | + + + | Patient Name: Daysi Flaherty Date of : 1965 | [facility] - | | Date of Test: 12/21/2015 Place of | [facility] | | Service: [facility] [phone] [facility] Department: EEG [facility] - | POINT OF CARE | | [phone] HALFWAY VIDEO EEG Start Date/Time: 12/21/15 | TESTS | | End Date/Time: 12/22/15 Telemetry Number: [id number] Please refer to | | | the cumulative termite inspector EEG report from the first day of this | | | recording period for results. | | + + + + + + + + | Performing | Address | City/State/Zipcode | Phone Number | | Organization | | | | + + + + + | [facility]ARG[facility] | [address] | [place], [place] | | | [facility] | [address] | [address] | | | TESTS | | | [...] Date of Test: 12/20/2015 Place of | [facility] | | Service: [facility] [phone] [facility] Department: EEG [facility] - | POINT OF CARE | | [phone] ELEMENTARY SCIENCE TEACHER VIDEO EEG Start Date/Time: 12/20/2015 | TESTS | | 7:02 End Date/Time: 12/21/2015 Telemetry Number: [id number] | | | Please refer to the cumulative fci EEG report from the first | | | day of this recording period for results. | | | | | + + + + + + + + | Performing | Address | City/State/Zipcode | Phone Number | | Organization | | | | + + + + + | A[facility] VARGAS | [address] | [place], [place] | | | [facility] | [address] | [address] | | | TESTS | | | [...] Date of Test: 12/19/2015 Place of | [facility] | | Service: [facility] [phone] [facility] Department: EEG [facility] - | POINT OF CARE | | [phone] HALFWAY VIDEO EEG Start Date/Time: 12/19/15 | TESTS | | End Date/Time: 12/20/15 Telemetry Number: [id number] Please refer | | | to the cumulative fci EEG report from the first day of this | | | recording period for results. | | + + + + + + + + | Performing | Address | City/State/Zipcode | Phone Number | | Organization | | | | + + + + + | ANALI Tigist [facility]EV[facility] | [address] | [place], [place] | | | [facility] | [address] | [address] | | | TESTS | | | [...] Date of Test: 12/18/2015 Place of | [facility] | | Service: [facility] [phone] [facility] Department: EEG [facility] - | POINT OF CARE | | [phone] HALFWAY VIDEO EEG Start Date/Time: | TESTS | | 12/18/2015 End Date/Time: 12/19/2015 Telemetry Number: [id number] | | | Please refer to the cumulative fci EEG report from the | | | first day of this recording period for results. | | | | | + + + + + + + + | Performing | Address | City/State/Zipcode | Phone Number | | Organization | | | | + + + + + | A[facility] VARGAS | [address] | [place], [place] | | | [facility] [facility] | [address] | [address] | | | TESTS | | | [...] Date of Test: 12/17/2015 Place of | [facility] | | Service: IP HR [phone] [facility] Department: EEG [facility] - | POINT OF CARE | | [phone] ELEMENTARY SCIENCE TEACHER VIDEO EEG Start Date/Time: | TESTS | | 12/17/2015 End Date/Time: 12/23/2015 Telemetry Number: | | | [id number] Last Name: Krystina First Name: | | | Daysi Record #[id number] ==== Admission | | | Information ==== [...] | [facility] | [address] | [place], [place] | | | [facility] | [address] | [address] | | | TESTS | | | | + + + + + EEG ROUTINE (12/17/2015) + + + | Narrative | Performed At | + + + | Patient Name: Daysi Flaherty Date of : 1965 | [facility] - | | Date of Test: 12/17/2015 Place of | [facility], | | Service: IP [facility] [phone] [facility] Department: EEG [facility] - | POINT OF CARE | | [phone] ROUTINE EEG History: 50-year-old man with history [...] oral, DAILY, Amador Mayorga, | | | VULCANIZED FIBER UNIT OPERATOR HYDROcodone-acetaminophen (NORCO) 10-325 mg 1 tablet, 1 [...] + + + | [facility]ARG[facility] | [address] | [place], [place] | | | [facility] | [address] | [address] | | | TESTS | | | [...] | 10 mL | | | | xgyucbirbhGSXWJ-wrnrdsmnm-XPBNBW | | 16 10:42 | | | [...]
--- OUTSIDE RECORDS SUMMARY | ~2019-07-31 | XMS | Encounter Summary ---
Demographics + + + | Address | [address] | | | [place] [address] | + + + | Home Phone | | + + + | Preferred Language | Unknown | + + + | Marital Status | | + + + | Evangelical Affiliation | 1061 | + + + [...] [place] | | | | | [address] | | + + + + + | Christy Flaherty | ECON | [address] | | | | | [place] | | | | | [address] | | + + + + + Care Team Providers + +------+ + | Care Senior Biostatistician Name | Role | Phone | + [...] | | | Convulsions/ | [address] | | | | | seizures | [facility] | [place], | | | | | ([facility]) | [address] | [place] [address] | | | | | Procedures | D | Phone: | | | | | EEG [place] | [place], | [phone] | | | | | EEG,[place] | [place] [address] | Fax: | | | | | & DROWSY | Phone: | [phone] | | | | | RECORD | [phone] | | | | | | | Fax: | | | | | | | [phone] | | +--------+--------+ + + + + Encounter Details +--------+ + + + + | Date | Type | Department | Care Team | Description | +--------+ + + + + | 08/10/ | Hospital | [facility] | Kimo Baum, | Convulsions, | | 2015 | Encounter | [facility] SLE[facility] | MD [address] | unspecified | | | | CENTER [address] | [address] | convulsion type | | | | HAZEL Lorenz | [place] [address] | ([facility]) | | | | [address] | [phone] | | | | | [phone] | | | +--------+ + + + [...] | | electroencephalogram was recorded with a Nihon-Audiam EEG | | | recording/reading station, using [...]
--- OUTSIDE RECORDS SUMMARY | ~2019-07-31 | XMS | Encounter Summary ---
Demographics + + + | Address | [address] | | | [place] [address] | + + + | Home Phone [...] [place] | | | | | [address] | | + + + + + Care Team Providers + +------+ + | Care Laminating Machine Offbearer Name | Role | Phone | + +------+ + | Jarvis Willard MD | PCP | | + +------+ + Encounter Details +--------+ + + + + | Date | Type | Department | Care Team | Description | +--------+ + + + + | 02/06/ | Automatic Lathe Operator | Digestive Health | Duy Kat, | Idiopathic chronic | | 2019 | | Center at [address] | [address] [facility] | pancreatitis (HCC) | | | | [address] | [address] | (Primary Dx) | | | | Mailcode: Center | [place], [place] | | | | | for Health and | [address] | | | | | Healing, Building [address] | [phone] | | | | | [place], [place] | | | | | | [address] | | | | | | [phone] | | | +--------+ + + + [...] | | LAB NAME | [facility] | | REFERENCE | | | | [place] [address] | | LAB | | | | [phone] | | | | | | | | | | | | [email or web address] | | | | | | | [...] | [facility] | | considered for monitoring remote computer terminal operator glycemic control in patients with: | LABORATORY [...] | + + + + + | [facility] | [address] | [place] [address] | | | SERVICES, SPECIAL | PARK [...] REFERENCE | 1 - 123 mg/dL | [facility] | | | SUBCLASS | INTERVAL: Immunoglobulin | | REG UNIV | | | | G Subclass 4 Access | | PTH - INTFC | | | | complete set of age- | | | | | | and/or gender-specific | | | | | | reference intervals for | | | | | | this test in the [facility] | | | | | | Laboratory Test | | | | | | Directory | | | | | | ([employer]).Performed | | | | | | by Seat[employer] | | | | | | Chanelle Dean [facility] [place] | | | | | | [address] | | | | | | [phone].BrandProject. | | | | | | [facility] centerRehan MD, | | | | [...] [facility] | [address] | [place], [place] | | | UNIV PTH - INTFC | | [address] | | + + + + + [...] | + + + + + | [facility] | [address] | [place] [address] | | | SERVICES, CORE | JEROME [...] | | | SERUM | Chanelle Dean, [facility] [place] | | PTH - INTFC | | | | [address] | | | | | | [phone]. | | | | | | comRehan [...] B: | | | | | | BrandProject.[employer]/ | | | | + + + + + + + + | Specimen | + + | Blood - Blood | | (substance) | + + + + + + + | Performing | Address | City/State/Zipcode | Phone Number | | Organization | | | | + + + + + | [facility] | [address] | [place], [place] | | | UNIV PTH - INTFC | | [address] | | + + + + + [...] [place] | | | | | | [address] | | | | | | [phone]. | | | | | | Rehan [...] [facility] | [address] | [place], [place] | | | UNIV PTH - INTFC | | [address] | | + + + + + [...] | + + + + + | [facility] | [address] | [place] [address] | | | SERVICES, CORE | JEROME [...] [facility] | [address] | [place] [address] | | | SERVICES, CORE | PARK [...] | + + + + + | [facility] | [address] [facility] [address] | [place] [address] | | | SERVICES, CORE | PARK [...] INTFC | | | | determined by [facility] | | | | | | Laboratories. See | | | | | | Compliance Statement B: | | | | | | BrandProject.[employer]/CSPerformed | | | | | | by SeatNinja,[address] | | | | | | Chanelle Dean, [facility] [place] | | | | | | [address] | | | | | | [phone].Company Data Trees[employer]. | | | | | | [facility] centerRehan MD, | | | | [...] [facility] | [address] | [place], [place] | | | UNIV PTH - INTFC | | [address] | | + + + + + VITAMIN B1, WHOLE BLOOD (02/08/2019 10:56 AM PST) + + + + + + | Component | Value | Ref Range | Performed | Pathologist | | | | | At | Signature | + + + + + + | VITAMIN B1, | 112Comment: INTERPRETIVE | 70 - 180 nmol/L | [facility] | | | WHOLE | INFORMATION: Vitamin [...] | | | | | determined by [employer] | | | | | | Laboratories. See | | | | | | Compliance Statement B: | | | | | | BrandProject.[employer]/CSPerformed | | | | | | by SeatNinja,[address] | | | | | | [place] | | | | | | [address] | | | | | | [phone].BrandProject. | | | | | | [facility] centerRehan MD, | | | | [...] [facility] | [address] | [place], [place] | | | UNIV PTH - INTFC | | [address] | | + + + + + [...] [facility] | [address] | [place] [address] | | | SERVICES, CORE | PARK [...] + + + + + | [facility] | [address] | [place] [address] | | | SERVICES, CORE | [address] | | | + + + + + LIPASE, PLASMA (02/08/2019 10:56 AM PST) + +--------+ + + + | Component | Value | Ref Range | Performed | Pathologist | | | | | At | Signature | + +--------+ + + + | LIPASE | 49 (L) | 152 - 353 U/L | [facility] | | | (LAB) | | | [...] | + + + + + | [facility] | [address] | [place] [address] | | | SERVICES, CORE | JEROME [...] + | [facility] - | [address] | [place] [address] | | | [place] | | | | + + + [...] | | | LABORATORY | | | [place] | | | SERVICES, | | | [...] MDRD equation recommended by the National | [facility] | | Kidney Disease Education Program. Estimated [...] [facility] | [address] | [place] [address] | | | SERVICES, MODE FOR | | | | | HEALTH + HEALING | | | | + + + + + documented in this encounter Visit Diagnoses + + | Diagnosis | + + | Idiopathic chronic pancreatitis (HCC) - Primary | + + documented in this encounter"
--- OUTSIDE RECORDS SUMMARY | ~2019-07-31 | XMS | Encounter Summary ---
Demographics + + + | Address | [address] | | | [place] [address] | + + + | Home Phone [...] [place] | | | | | [address] | | + + + + + Care Team Providers + +------+ + | Care Bale Sewer Name | Role | Phone | + [...] | | Pancreatic | Paras Jorge, | [address] [address] | | | | | mass | MD [address] | | | | | Procedures | Elias Fonseca | Mailcode: | | | | | CT ABDOMEN | Jayshree Santillan | [facility] | | | | | WWO IV | [place], [place] | for Health | | | | | [place] | [address] | and Healing, | | | | | CT SCAN OF | Phone: | Building 1, | | | | | ABDOMEN | [phone] | 3rd Floor | | | | | COMBO | Fax: | [place], [place] | | | | | | [phone] | [address] | | | | | | | Phone: | | | | | | | [phone] | | | | | | | Fax: | | | | | | | [phone] | +--------+--------+ + + + + Reason [...] | | | | WWO IV | [place], [place] | for Health | | | | | [place] | [address] | and Healing, | | | | | CT SCAN OF | Phone: | Building 1, | | | | | ABDOMEN | [phone] | 3rd Floor | | | | | COMBO | Fax: | [place], [place] | | | | | | [phone] | [address] | | | | | | | Phone: | | | | | | | [phone] | | | | | | | Fax: | | | | | | | [phone] | +--------+--------+ + + + + Encounter Details +--------+ + + + + | Date | Type | Department | Care Team | Description | +--------+ + + + + | 03/11/ | Hospital | Radiology/Imaging | Paras Baker | | | 2017 | Encounter | Lab at [facility] [address] | MD Ania [address] [facility] | | | | | Hector Cabrera Mailcode: | [address] | | | | | [address] for | [place], [place] | | | | | Health and Healing, | [address] | | | | | Building 1, 3rd | [phone] | | | | | Floor [place], [place] | | | | | | [address] | | | | | | [phone] | | | +--------+ + + + [...]
--- OUTSIDE RECORDS SUMMARY | ~2019-07-31 | XMS | Encounter Summary ---
Demographics + + + | Address | [address] | | | [place] [address] | + + + | Home Phone [...] [place] | | | | | [address] | | + + + + + Care Team Providers + +------+ + | Care Compounder Flavorings Name | Role | Phone | + [...] 2019 | Encounter | Center at [address] | [address] | Frequency of Pain | | | | [address] | [address] | and Other Symptoms | | | | Mailcode: Center | [place], [place] | | | | | for Health and | [address] | | | | | Healing, Building 2 | [phone] | | | | | [place], [place] | | | | | | [address] | | | | | | [phone] | | | +--------+ + + + [...]
--- OUTSIDE RECORDS SUMMARY | ~2019-07-31 | XMS | Encounter Summary ---
Demographics + + + | Address | [address] | | | [place] [address] | + + + | Home Phone [...] [place] | | | | | [address] | | + + + + + Care Team Providers + +------+ + | Care High Man Name | Role | Phone | [...] | | | | WWO IV | [place], [place] | for Health | | | | | [place] | [address] | and Healing, | | | | | CT SCAN OF | Phone: | Building 1, | | | | | ABDOMEN | [phone] | 3rd Floor | | | | | COMBO | Fax: | [place], [place] | | | | | | [phone] | [address] | | | | | | | Phone: | | | | | | | [phone] | | | | | | | Fax: | | | | | | | [phone] | +--------+--------+ + + + + Reason [...] | | | | WWO IV | [place], [place] | for Health | | | | | [place] | [address] | and Healing, | | | | | CT SCAN OF | Phone: | Building 1, | | | | | ABDOMEN | [phone] | 3rd Floor | | | | | COMBO | Fax: | [place], [place] | | | | | | [phone] | [address] | | | | | | | Phone: | | | | | | | [phone] | | | | | | | Fax: | | | | | | | [phone] | +--------+--------+ + + + + Encounter Details +--------+ + + + + | Date | Type | Department | Care Team | Description | +--------+ + + + + | 03/11/ | Hospital | Radiology/Imaging | Paras Baker | | | 2017 | Encounter | Lab at [facility] [address] | MD Ania [address] [facility] | | | | | Hector Cabrera Mailcode: | [address] | | | | | [address] for | [place], [place] | | | | | Health and Healing, | [address] | | | | | Building 1, 3rd | [phone] | | | | | Floor [place], [place] | | | | | | [address] | | | | | | [phone] | | | +--------+ + + + [...]
--- OUTSIDE RECORDS SUMMARY | ~2019-07-31 | XMS | Encounter Summary ---
Demographics + + + | Address | [address] | | | [place] [address] | + + + | Home Phone [...] [place] | | | | | [address] | | + + + + + Care Team Providers + +------+ + | Care Insurance Examiner Name | Role | Phone | + +------+ + | Filippo Chen DO | PCP | | + +------+ + Encounter Details +--------+ + + + + | Date | Type | Department | Care Team | Description | +--------+ + + + + | 12/17/ | Documentati | Neurology at | Amador Mayorga N, | | | 2016 | on | [facility] & | GAS SYSTEM OPERATOR [address] | | | | | Healing [address] | [address] | | | | | Ave Mailcode: CH[address]C | [place], [place] | | | | | [facility] | [address] | | | | | and Healing, | [phone] | | | | | [facility] | | | | | | Floor [place], [place] | | | | | | [address] | | | | | | [phone] | | | +--------+ + + + [...]
--- OUTSIDE RECORDS SUMMARY | ~2019-07-31 | XMS | Encounter Summary ---
Demographics + + + | Address | [address] | | | [place] [address] | + + + | Home Phone | | + + + | Preferred Language | Unknown | + + + | Marital Status | | + + + | Mormonism Affiliation | 1061 | + + + | Race | Unknown | + + + | Ethnic Group | Unknown | + + + Author + + + | Author | [facility] | | | and [place] | + + + | Organization | [facility] | [...] [place] | | | | | [address] | | + + + + + | Christy Grande | ECON | [address] | | | | | [place] | | | | | [address] | | + + + + + Care Team Providers + +------+ + | Care Bisque Placer Name | Role | Phone | + +------+ + | Juan Demarco MD | PCP | | + +------+ + Encounter Details +--------+ + + + + | Date | Type | Department | Care Team | Description | +--------+ + + + + | 12/05/ | Hospital | [facility] | Conversion | Rheumatic fever; | | 2014 | Encounter | [facility] | Transaction, | Coccidioidomycosis | | | | ECHOCARDIOGRAPHY | Provider Unknown | | | | | [address] [facility] | | | | | | [place], [place] | (Fax) | | | | | [address] | | | | | | [phone] | | | +--------+ + + + [...] dilated. | | | 4. There is ctucxpkk-xi-xkwbfp aortic regurgitation. 5. Suboptimal | | | [...] dilated. | | | 4. There is xvmqsdvq-ke-pbpaaa aortic regurgitation. 5. Suboptimal | | | [...] | | calcified. Aortic Valve: There is wkukcrzs-gu-kdeift aortic | | | regurgitation. Aortic Valve: [...] | | | Excursion: 1.52 cm E-F Kearney: 0.26 m/s HR: 56.66 BPM AV | [...] TV A George: 0.55 m/s TV Dec [place]: 1.98 | | | m/s2 TV Dec Time: 284.09 ms TV E George: 0.56 m/s TV E/A Ratio: | | | 1.01 Prime Broker: CM Authenticated by: Belia Nelson MD | [...] is mildly dilated.4. There is | | gdfciujl-az-sefqsj aortic regurgitation.5. Suboptimal study to evaluate for [...] moderately calcified.Aortic | | Valve: There is abrjffzk-kq-qygivj aortic regurgitation.Aortic Valve: There is no | [...] (A-L): | | 24.03 ml/m2LAAs A2C: 16.90 bs3PZKJU A-L A2C: 52.54 mlLALs A2C: 4.61 cmLAAs A4C: | | 17.00 cz5YMBZT A-L A4C: 48.85 mlLALs A4C: 5.02 cmAo Diam: 3.43 cmAV Cusp: 2.18 | | cmLA Diam: 4.06 cmLA/Ao: 1.18%FS: 25.49 %EDV(Teich): 135.94 mlEF(Teich): 49.82 | | %ESV(Teich): 68.20 mlIVSd: 1.00 cmIVSs: 1.28 cmLVIDd: 5.31 cmLVIDs: 3.95 | | cmLVPWd: 1.07 cmLVPWs: 1.28 cmSV(Teich): 67.73 mlD-E Excursion: 1.52 cmE-F | | Kearney: 0.26 m/sHR: 56.66 BPMAV maxP.28 mmHgAV meanP.69 mmHgAV Vmax: | | 2.07 m/Stormy Vmean: 1.38 m/Stormy VTI: 43.11 cmAVA Vmax: 1.83 cm2AVA (VTI): 1.92 | | zf5BABC Dopp: 2.13 l/hqrz8KFDU Dopp: 4.68 l/minHR: 56.48 BPMLVOT maxP.82 | | mmHgLVOT meanP.46 mmHgLVSI Dopp: 37.72 ml/m2LVSV Dopp: 82.99 mlLVOT Vmax: | | 0.84 m/sLVOT Vmean: 0.57 m/sLVOT VTI: 18.25 cmMV E George: 0.70 m/sMV PHT: 80.50 | | msMVA By PHT: 2.73 ak4Mkkfpi e': 0.05 m/sSeptal E/e': 11.93Lateral e': 0.08 | | m/sLateral E/e': 8.73P Vein D: 0.43 m/sP Vein S/D Ratio: 0.99P Vein S: 0.42 | | m/sHR: 58.77 BPMPV maxP.78 mmHgPV meanP.93 mmHgPV Vmax: 0.66 m/sPV | | Vmean: 0.45 m/sPV VTI: 15.68 cmTV A George: 0.55 m/sTV Dec [place]: 1.98 m/s2TV Dec | | Time: 284.09 msTV E George: 0.56 m/sTV E/A Ratio: 1.01 Prime Broker: CMAuthenticated | | by: Belia Nelson MDReport Date/Time: 12-05-2014 20:23:19 IMPRESSION: 1. Overall left | | ventricular systolic function is low-normal with, an EF between 50 - 55 %.2. The right | | ventricle is moderately enlarged measuring between 3.8 - 4.1 cm.3. The left atrium is | | mildly dilated.4. There is xtlmllqj-jl-brnnwi aortic regurgitation.5. Suboptimal study | | to [...] | |D-E Excursion: 1.52 cm | |E-F [place]: 0.26 m/s | |HR: 56.66 BPM | [...] A George: 0.55 m/s | |TV Dec [place]: 1.98 m/s2 | |TV Dec Time: 284.09 ms | |TV E George: 0.56 m/s | |TV E/A Ratio: 1.01 | | | |Prime Broker: CM | |Authenticated by: Belia Nelson MD | |Report Date/Time: 12-05-2014 20:23:19 | | | |IMPRESSION: | |1. Overall left ventricular systolic function is low-normal with, an EF between 50 - 55 %. | |2. The right ventricle is moderately enlarged measuring between 3.8 - 4.1 cm. | |3. The left atrium is mildly dilated. | |4. There is istvytjv-ac-ujmwxo aortic regurgitation. | |5. Suboptimal study to [...]
--- OUTSIDE RECORDS SUMMARY | ~2019-07-31 | XMS | Encounter Summary ---
Demographics + + + | Address | [address] | | | [place] [address] | + + + | Home Phone [...] [place] | | | | | [address] | | + + + + + Care Team Providers + +------+ + | Care Biomedical Scientist Name | Role | Phone | [...] | | | | with complex | [place], [place] | [place] | | | | | partial | [phone] | [address] | | | | | seizures, | Phone: | Phone: | | | | | intractable, | [phone] | [phone] | | | | | without | Fax: | Fax: | | | | | status | [phone] | [phone] | | | | | epilepticus | | | | | | | ([facility]) | | | | | [...] for | | 2016 | Visit | [facility] & | MD | long-term current | | | | Healing [address] | | use of medication | | | | Ave Mailcode: CH8C | | (Primary Dx); | | | | Center for [facility] | | Localization-related | | | | and Healing, | | symptomatic | | | | Building | | epilepsy and | | | | Floor [place], [place] | | epileptic syndromes | | | | [address] | | with complex partial | | | | [phone] | | seizures, | | | | [...] might be different fro m the original. [facility] Note Author: Noe Arambula MD Date/Time: 09/05/2015 2:55 PM Requesting Attending: Sylvia Triana MD HPI: Daysi Flaherty is a 50 year old right-handed man who is being seen in [facility] Ep[facility] Clinic for evaluation of [...] took him t o the hospital in [place]. They did an MRI which was initially [...] referred to his neurologist Dr. Estrada in [place]. He reviewed the MRI and saw a [...] in September 2014 an ID specialist in [facility] determined khadijah t he had Rheumatic fever [...] November 2014. Prior Evaluation: EEG from the [facility] in 2014 was normal. MRI from [facility] in 2014 showed the left mesial [...] drugs Living situation: Lives with his in [place], [place] Marital Status: Education: Some college Work: [...] to light touch. Coordination and Gait: Normal mktrir-ydgv-zhbeji and rzgb-ct-oozv intact. Labs: Lab Results Component Value Date [...] right-handed man who is being seen in [facility] Epilepsy Clinic for evaluation of surgical [...] signed on 09/05/2015 by Noe Arambula MD. Management Retail Intern Department of Neurology [facility] Comprehensive Epilepsy Center documented in this [...] [facility] | [address] | [place] [address] | | | SERVICES, CORE | PARK [...] | | | LABORATORY | | | [place] | | | SERVICES, | | | [...] the MDRD equation recommended by the | [facility] | | National Kidney Disease Education Program. [...] | + + + + + | [facility] | [address] | [place] [address] | | | JAMISON WORKMAN | JEROME [...]
--- OUTSIDE RECORDS SUMMARY | ~2019-07-31 | XMS | Encounter Summary ---
Demographics + + + | Address | [address] | | | [place] [address] | + + + | Home Phone [...] [place] | | | | | [address] | | + + + + + Care Team Providers + +------+ + | Care Entry Level Automotive Technician Name | Role | Phone | [...] + + | 12/16/ | Hospital | [facility]D 3250 | Carla Chicas MD | | | 2016 - | Encounter | [facility] | [address] [facility] | | | | | [place] | [facility], | | | 12/22/ | | [facility] 10D | [place] [address] | | | 2015 | | [place], [place] | [phone] | | | | | [address] | | | | | | [phone] | Anthony De La O MD | | | | | | [address] | | | | | | [place], [place] | | | | | | [address] | | | | | | [phone] | | | | | | | [...] attending physician. If you have access to [facility] [employer] this letter will be available in the Encounters tab labeled "Other-EMU Discharge Summary" s hortly after the patient's discharge. Reason for Admission: Daysi Flaherty is a 50 y.o. male admitted for diagnostic 24-hour video EEG monitoring in the [facility] Comprehensive Epilepsy Monitoring Unit. Hospital Course: [...] We treated the patient's tooth pain with [place], magic mouthwash, Tylenol. We treated constipation with [...] was unremarkable. Daysi Flaherty Home Medication Instructions ENDER:[id number] Printed on:12/23/15 1023 Medication Information acetaminophen 325 mg oral tablet [...] 25 mg 25 mg oral Q6H PRN ahzrsivygaYTITA-gvidwhxoz-TRSZSU (SPECIAL MOUTHWASH) suspension (compound) 5-10 mL 5-1 [...] Details have been entered in a separate [facility] clinical neurophysiology procedure report. Assessment/Plan (by [...] to his being on valproate 3. Continue [place] for pain. 4. Telemetry monitoring given cardiac [...] reviewing the EEG record. Marita Hernandez MD,MPH Audio Visual Aide, Epilepsy Specialist [facility] Department of Neurology [facility] DEPARTMENT: Neurology Epilepsy Attending - [phone] Place of Service: Date of Service: 12/23/2015 CSN: [id number] Suggested Modifier: GC - Resident Present Suggested EEG CPT: 59280 - EEG Video, (12 - 24 hours) Suggested E/M and Procedure CPT: 39058 - Hospital Discharge, >30 minutes Suggested Diagnosis: [...] 25 mg 25 mg oral Q6H PRN dfserrivfgCDWWB-jwnxdadxh-YLGVYZ (SPECIAL MOUTHWASH) suspension (compound) 5-10 mL 5-1 [...] to his being on valproate 3. Continue [place] for pain. 4. Telemetry monitoring given cardiac [...] time spent reviewing the EEG re cord. [facility] DEPARTMENT: Neurology Epilepsy Attending - [id number] Place of Service: - Date of Service: 12/22/15 [facility]: [phone] Suggested Modifier: 25 - Separate E/M service performed by provider (or other security team lead) on same day as procedure Suggested EEG CPT: 82403 - EEG Video, (12 - 24 hours) Suggested E/M and Procedure CPT: 44080 - Low complexity, (15 minutes >50% counseling [...] and has seen a sleep specialist in [place] who feels he has a high probabil [...] 25 mg 25 mg oral Q6H PRN rakxiknfalTPOEG-ywjqnqpgv-NPBSWK (SPECIAL MOUTHWASH) suspension (compound) 5-10 mL 5-1 [...] bid esteban nued outpt dosage 3. Continue [place] for pain. 4. Telemetry monitoring given cardiac [...] the time spent reviewing the EEG record. 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 His personal leaning is to [...] 4. Continue other home meds 5. Continue [place] for pain. 6. Telemetry monitoring given cardiac history and h/o GTCs 7. Neuropsych testing as an outpatient 8. He was going to have LTG started in August however his pharmacy never filled the rx. His n eurologist here at [facility] had then moved so it was [...] Electronically signed Anthony De La O MD. 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 [...] to drive and is not working at [employer] s time. 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 At this point, if his seizures are coming fro m this lesion, he could potentially be a good surgical candidate, even noting his other eoly rbidities. This admission will be important to [...] 4. Continue other home meds 5. Continue [place] for pain. 6. Telemetry monitoring given cardiac history and h/o GTCs 7. Neuropsych testing as an outpatient 8. He was going to have LTG started in August however his pharmacy never filled the rx. His n eurologist here at [facility] had then moved so it was [...] Electronically signed Anthony De La O MD. 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 Continue other home meds 5. Continue [place] for pain. 6. Telemetry monitoring given cardiac history and h/o GTCs 7. neuropsych testing as an outpatient 8. He was going to have LTG started in August however his pharmacy never filled the rx. His n eurologist here at [facility] had then moved so it was [...] Electronically signed Anthony De La O MD. [facility] DEPARTMENT: Neurology Epilepsy Attending - [phone] Place of Service: - Date of Service: 12/18/15 CSN: [id number] Suggested Modifier: 25 - Separate E/M service performed by provider (or other security team lead) on same day as procedure Suggested EEG CPT: 08225 - EEG Video, (12 - 24 hours) Suggested E/M and Procedure CPT: 03132 - Moderate complexity, (25 minutes >50% counseling [...] Date of Test: 12/22/2015 Place of | [facility] | | Service: [facility] [phone] [facility] Department: EEG [facility] - | POINT OF CARE | | [phone] PRACTICE ASSISTANT VIDEO EEG Start Date/Time: 12/22/15 | TESTS | | End Date/Time: 12/23/15 Telemetry Number: [id number] Please refer to | | | the cumulative nursing home EEG report from the first day of this | | | recording period for results. | | + + + + + + + + | Performing | Address | City/State/Zipcode | Phone Number | | Organization | | | | + + + + + | [facility] | [address] | [place], [place] | | | PAM [facility] OF [facility] | [address] | [address] | | | TESTS | | | [...] + + + | X-RAY | EXAM: MO CHEST 1 VIEW | | | | [...] | | + +---------+ + + | [facility] DEPARTMENT OF | | | | | RADIOLOGY | | | | + +---------+ + + EEG CONTINUOUS, ADULT (12/21/2015) + + + | Narrative | Performed At | + + + | Patient Name: Daysi Flaherty Date of : 1965 | [facility] - | | Date of Test: 12/21/2015 Place of | [facility] | | Service: [facility] [phone] [facility] Department: EEG [facility] - | POINT OF CARE | | [phone] GROUP HOME VIDEO EEG Start Date/Time: 12/21/15 | TESTS | | End Date/Time: 12/22/15 Telemetry Number: [id number] Please refer to | | | the cumulative marine oil terminal superintendent EEG report from the first day of this | | | recording period for results. | | + + + + + + + + | Performing | Address | City/State/Zipcode | Phone Number | | Organization | | | | + + + + + | [facility] | [address] | [place], [place] | | | PAM ME[facility]A OF [facility] | [address] | [address] | | | TESTS | | | [...] Date of Test: 12/20/2015 Place of | [facility] | | Service: [facility] [phone] [facility] Department: EEG [facility] - | POINT OF CARE | | [phone] PRACTICE ASSISTANT VIDEO EEG Start Date/Time: 12/20/2015 | TESTS | | 7:02 End Date/Time: 12/21/2015 Telemetry Number: [id number] | | | Please refer to the cumulative nursing home EEG report from the first | | | day of this recording period for results. | | | | | + + + + + + + + | Performing | Address | City/State/Zipcode | Phone Number | | Organization | | | | + + + + + | [facility]ARG[facility] | [address] | [place], [place] | | | KYM [facility] OF [facility] | [address] | [address] | | | TESTS | | | [...] Date of Test: 12/19/2015 Place of | [facility] | | Service: [facility] [phone] [facility] Department: EEG [facility] - | POINT OF CARE | | [phone] GROUP HOME VIDEO EEG Start Date/Time: 12/19/15 | TESTS | | End Date/Time: 12/20/15 Telemetry Number: [id number] Please refer | | | to the cumulative nursing home EEG report from the first day of this | | | recording period for results. | | + + + + + + + + | Performing | Address | City/State/Zipcode | Phone Number | | Organization | | | | + + + + + | ANALI Tigist [facility]EV[facility] | [address] | [place], [place] | | | PAM [facility] OF [facility] | [address] | [address] | | | TESTS | | | [...] Date of Test: 12/18/2015 Place of | [facility] | | Service: [facility] [phone] [facility] Department: EEG [facility] - | POINT OF CARE | | [phone] GROUP HOME VIDEO EEG Start Date/Time: | TESTS | | 12/18/2015 End Date/Time: 12/19/2015 Telemetry Number: [id number] | | | Please refer to the cumulative nursing home EEG report from the | | | first day of this recording period for results. | | | | | + + + + + + + + | Performing | Address | City/State/Zipcode | Phone Number | | Organization | | | | + + + + + | A[facility]ARG[facility] | [address] | [place], [place] | | | KYM [facility]AMESA OF [facility] | [address] | [address] | | | TESTS | | | [...] Date of Test: 12/17/2015 Place of | [facility] | | Service: IP [facility] [phone] [facility] Department: EEG [facility] - | POINT OF CARE | | [phone] PRACTICE ASSISTANT VIDEO EEG Start Date/Time: | TESTS | | 12/17/2015 End Date/Time: 12/23/2015 Telemetry Number: | | | [id number] Last Name: Krystina First Name: | | | Daysi Record #[id number] ==== Admission | | | Information ==== [...] VARGAS | [address] | [place], [place] | | | PAM [facility] OF [facility] | [address] | [address] | | | TESTS | | | | + + + + + EEG ROUTINE (12/17/2015) + + + | Narrative | Performed At | + + + | Patient Name: Daysi Flaherty Date of : 1965 | [facility] - | | Date of Test: 12/17/2015 Place of | [facility], | | Service: IP [facility] [phone] [facility] Department: EEG [facility] - | POINT OF CARE | | [phone] ROUTINE EEG History: 50-year-old man with history [...] oral, DAILY, Amador Mayorga, | | | SUPERVISOR PAINT HYDROcodone-acetaminophen (NORCO) 10-325 mg 1 tablet, 1 [...] + + + | A[facility] | [address] | [place], [place] | | | PAM [facility] | [address] | [address] | | | TESTS | | | [...] | 10 mL | | | | kakafycpppOSKUW-wysmbsvrc-UOKBFJ | | 16 10:42 | | | [...]
--- OUTSIDE RECORDS SUMMARY | ~2019-07-31 | XMS | Encounter Summary ---
Demographics + + + | Address | [address] | | | [place] [address] | + + + | Home Phone [...] [place] | | | | | [address] | | + + + + + Care Team Providers + +------+ + | Care Director Of Home Economics Name | Role | Phone | + +------+ + | Juan Demarco MD | PCP | | + +------+ + Encounter Details +--------+ + + + + | Date | Type | Department | Care Team | Description | +--------+ + + + + | 03/07/ | Orders Only | [facility] | Conversion | | | 2014 | | INFECTIOUS DISEASE | Transaction, | | | | | [address] | Provider Unknown | | | | | [place], [place] | | | | | | [address] | (Fax) | | | | | [phone] | | | +--------+ + + + [...]
--- OUTSIDE RECORDS SUMMARY | ~2019-07-31 | XMS | Encounter Summary ---
Demographics + + + | Address | [address] | | | [place] [address] | + + + | Home Phone [...] [place] | | | | | [address] | | + + + + + | Christy Flaherty | ECON | [address] | | | | | [place] | | | | | [address] | | + + + + + Care Team Providers + +------+ + | Care Senior Executive Assistant Name | Role | Phone | + +------+ + | Juan Demarco MD | PCP | | + +------+ + Encounter Details +--------+ + + + + | Date | Type | Department | Care Team | Description | +--------+ + + + + | 09/12/ | Hospital | [facility] | [place] | Contusion of right | | 2014 | Encounter | MED CTR WAN XRAY | MD [address] | hand, subsequent | | | | [address] [place] | [facility] | encounter; Place of | | | | [facility], [place] | [place] [address] | occurrence, | | | | [address] | [phone] | industrial places | | | | [phone] | | and premises | +--------+ + [...] injury recently COMPARISON: September 02, 2012. | [facility] | | FINDINGS:3 views [...] ST[address] | [address] | [place] | [phone] | | [facility] | | [address] | | | - IMAGING | | | | + + + + + documented in this encounter Visit Diagnoses + + | Diagnosis | + + | Contusion of right hand, subsequent encounter | + + | Place of occurrence, industrial places and premises | + + documented in this encounter"
--- OUTSIDE RECORDS SUMMARY | ~2019-07-31 | XMS | Encounter Summary ---
Demographics + + + | Address | [address] | | | [place] [address] | + + + | Home Phone [...] [place] | | | | | [address] | | + + + + + Care Team Providers + +------+ + | Care Issue Clerk Name | Role | Phone | [...] | Center at [facility] [address] | [address] [facility] | Received (05/12/17 | | | | Ivy [address] | [address] | Fecal Elastase | | | | Mailcode: Center | [place], [place] | Results- [employer]) | | | | for Health and | [address] | | | | | [facility] [address] | [phone] | | | | | [place], [place] | | | | | | [address] | | | | | | [phone] | | | +--------+ + + + [...]
--- OUTSIDE RECORDS SUMMARY | ~2019-07-31 | XMS | Encounter Summary ---
Demographics + + + | Address | [address] | | | [place] [address] | + + + | Home Phone [...] [place] | | | | | [address] | | + + + + + | Christy Flaherty | ECON | [address] | | | | | [place] | | | | | [address] | | + + + + + Care Team Providers + +------+ + | Care Parking Patroller Name | Role | Phone | + [...] [address] | | | | | [facility] [address] | [address] | | | | | [place] | [place] [address] | | | | | [address] | | | | | | [phone] | | | +--------+ + + + [...]
--- OUTSIDE RECORDS SUMMARY | ~2019-07-31 | XMS | Encounter Summary ---
Demographics + + + | Address | [address] | | | [place] [address] | + + + | Home Phone [...] [place] | | | | | [address] | | + + + + + | Christy Grande | ECON | [address] | | | | | [place] | | | | | [address] | | + + + + + Care Team Providers + +------+ + | Care Collar Shaper Operator Name | Role | Phone | + +------+ + | Juan Demarco MD | PCP | | + +------+ + Encounter Details +--------+ + + + + | Date | Type | Department | Care Team | Description | +--------+ + + + + | 09/02/ | Hospital | [facility] | [place] | Localized skin mass, | | 2012 | Encounter | MED CTR XRAY [address] | MD [address] | lump, or swelling | | | | [address] [place] | [address] [place] | | | | | [place] [address] | [place] [address] | | | | | [phone] | [phone] | | | | | | | [...] Performed At | + + + | [facility] Diagnostic Imaging | [place] | | Department [address] [facility] | | [ rep [address]] [ rep [facility] | | [facility]] Signed | - IMAGING | | | | | Patient Name: JOHNNY GRANDE Physician: | | | BROOKE.Jesus : 1965 Age: 47 Sex: M Unit #: [id number] | | | Exam Date: 09/02/12 [place]: [facility] | | | Report #: [id number] Page: | | | %(RAD)RES..mtdd.print.filter("pg") of %(RAD) | | | RES..mtdd.print.filter("tpg") | | | | | | Accession Number: [id number] | | | THREE VIEWS RIGHT HAND, [...] Transcribed Date/Time: 09/02/2012 | | | 21:21 Emergency Veterinarian: <<Signature | | | on File>> | | | Rojas Solorio | | | MD Robson09/02/12 9515 <Electronically signed by Rojas Chance MD> | | | Rojas Chance MD 09/02/12 1220 Emergency Veterinarian: | | | Terabitz Ozfplbengqmtz04/07/132120 | | + + + + + + + + | Performing | Address | City/State/Zipcode | Phone Number | | Organization | | | | + + + + + | [address] | [address] | [place] | [phone] | | [facility] | | [address] | | | - IMAGING | | | | + + + + + documented in this encounter Visit Diagnoses + + | Diagnosis | + + | Localized skin mass, lump, or swelling Localized superficial swelling, mass, or lump | + + documented in this encounter
--- OUTSIDE RECORDS SUMMARY | ~2019-07-31 | XMS | Encounter Summary ---
Demographics + + + | Address | [address] | | | [place] [address] | + + + | Home Phone | | + + + | Preferred Language | Unknown | + + + | Marital Status | | + + + | Zoroastrianism Affiliation | 1061 | + + + | Race | Unknown | + + + | Ethnic Group | Unknown | + + + Author + + + | Author | [facility] | | | and [place] | + + + | Organization | [facility] | | | [...] [place] | | | | | [address] | | + + + + + | Christy Flaherty | ECON | [address] | | | | | [place] | | | | | [address] | | + + + + + Care Team Providers + +------+ + | Care Special Education Superintendent Name | Role | Phone | + +------+ + | Juan Demarco MD | PCP | | + +------+ + Encounter Details +--------+ + + + + | Date | Type | Department | Care Team | Description | +--------+ + + + + | 01/18/ | Hospital | [facility] | Conversion | Diagnosis unknown | | 2017 | Encounter | CONVERSION [address] | Transaction, | | | | [address] | Provider Unknown | | | | | [place] | [phone] | | | | | [address] | | | | | | [phone] | | | +--------+ + + + [...]
--- OUTSIDE RECORDS SUMMARY | ~2019-07-31 | XMS | Encounter Summary ---
Demographics + + + | Address | [address] | | | [place] [address] | + + + | Home Phone [...] [place] | | | | | [address] | | + + + + + | Christy Grande | ECON | [address] | | | | | [place] | | | | | [address] | | + + + + + Care Team Providers + +------+ + | Care Disability Advocate Name | Role | Phone | + +------+ + | Juan Demarco MD | PCP | | + +------+ + Encounter Details +--------+ + + + + | Date | Type | Department | Care Team | Description | +--------+ + + + + | 02/24/ | Emergency | [facility] | Azar Herron | Idiopathic acute | | 2017 | | [facility] | MD Michael [address] | pancreatitis without | | | | [facility] | [place], [place] | infection or | | | | [address] | [address] | necrosis | | | | [place], [place] | [phone] | | | | | [address] | | | | | | [phone] | | | +--------+ + + + [...] | Procedure Note | + + | Jk, Rad Conversion - 11/10/2018 1:54 AM PDT DAYSI GRANDE years MaleCT | | ABDOMEN PELVIS WO ARXEFOLL12/29/2017 11:28 AM INDICATION: Abdominal pain. Possible | [...] - 1.035 | EXTERNAL | | | [place], | | | LAB | | | [...] | | | Urine | performed at [facility], [address] | | LAB | | | | [address], | | | | | | [place] [address] | | | | + + + [...] | | | Basophils | performed at [facility], [address] | [address] | LAB | | | | [address], | | | | | | [place] [address] | | | | + + + [...] EXTERNAL | | | | performed at [facility], [address] | | LAB | | | | [address], | | | | | | [place] [address] | | | | + + + [...] EXTERNAL | | | | performed at [facility], [address] | | LAB | | | | [address], | | | | | | [place] [address] | | | | + + + [...] | | | | | | at [facility], [address] | | | | | | [address] [place] [place] | | | | | | [address] | | | | + + + [...]
--- OUTSIDE RECORDS SUMMARY | ~2019-07-31 | XMS | Encounter Summary ---
Demographics + + + | Address | [address] | | | [place] [address] | + + + | Home Phone [...] [place] | | | | | [address] | | + + + + + Care Team Providers + +------+ + | Care Chief Controller Center Name | Role | Phone | + +------+ + | Filippo Chen DO | PCP | | + +------+ + Reason for Visit + + + | Reason | Comments | + + + | Pre-Admission | [facility] | + + + | Epilepsy | custodial supervisor; chart review and pre-admin assessment | + + + Encounter Details +--------+ + + + + | Date | Type | Department | Care Team | Description | +--------+ + + + + | 10/01/ | Telephone | Neurology at | [place], | Pre-Admission ([facility] | | 2016 | | [facility] & | [address] | ); Epilepsy (RN | | | | Healing [address] | [facility] | Navigator; chart | | | | Ave Mailcode: CH8C | [place], [place] | review and pre-admin | | | | [facility] | [address] | assessment) | | | | and Healing, | | | | | | [address] | | | | | | [place], [place] | | | | | | [address] | | | | | | [phone] | | | +--------+ + + + [...]
--- OUTSIDE RECORDS SUMMARY | ~2019-07-31 | XMS | Encounter Summary ---
Demographics + + + | Address | [address] | | | [place] [address] | + + + | Home Phone [...] [place] | | | | | [address] | | + + + + + | Christy Flaherty | ECON | [address] | | | | | [place] | | | | | [address] | | + + + + + Care Team Providers + +------+ + | Care Casket Inspector Name | Role | Phone | + +------+ + | Juan Demarco MD | PCP | | + +------+ + Encounter Details +--------+ + + + + | Date | Type | Department | Care Team | Description | +--------+ + + + + | 01/28/ | Orders Only | [facility] | Conversion | | | 2014 | | INFECTIOUS DISEASE | Transaction, | | | | | [address] | Provider Unknown | | | | | [place], [place] | | | | | | [address] | (Fax) | | | | | [phone] | | | +--------+ + + + [...]
--- OUTSIDE RECORDS SUMMARY | ~2019-07-31 | XMS | Encounter Summary ---
Demographics + + + | Address | [address] | | | [place] [address] | + + + | Home Phone [...] [place] | | | | | [address] | | + + + + + Care Team Providers + +------+ + | Care Certified Wellness Program Manager Name | Role | Phone | [...] | [facility] at [facility] [address] | [address] [facility] | - Disregard | | | | [address] | [facility] | | | | | Mailcode: Center | [place], [place] | | | | | for Health and | [address] | | | | | [facility] | [phone] | | | | | [place], [place] | | | | | | [address] | | | | | | [phone] | | | +--------+ + + + [...]
--- OUTSIDE RECORDS SUMMARY | ~2019-07-31 | XMS | Encounter Summary ---
Demographics + + + | Address | [address] | | | [place] [address] | + + + | Home Phone [...] | [facility] | | | and [place] | + [...] [place] | | | | | [address] | | + + + + + | Christy Flaherty | ECON | [address] | | | | | [place] | | | | | [address] | | + + + + + Care Team Providers + +------+ + | Care Lens Generator Name | Role | Phone | + [...] + + | 10/28/ | Office | [facility] | [place] | Contusion of right | | 2012 | Visit | OCCUPATIONAL HEALTH | MD [address] | hand (Primary Dx); | | | | [address] | [facility] | Soft tissue mass; | | | | [address] [facility] | [place] [address] | Place of occurrence, | | | | [place], [place] | [phone] | industrial places | | | | [address] | | and premises | | | | [phone] | | | +--------+---------+ + + + [...] MD - 10/28/2012 8:46 AM PDTSee dictation [id number] christopher d by [place] MD at 10/28/2012 8:47 AM [place] MD - 10/29/19 13 12:00 AM PDT OCCUPATIONAL MEDICINE [address] [place] [address] [place] [address] FAX: [phone] OFFICE VISIT BACKGROUND INFORMATION Claim No.: [id number] Date of injury: 08/18/2012 Employer: [employer] Guarantor: [...] Hollie [place] MD / SB JOB #: [id number] signed by [place] MD at 10/28/2012 [...]
--- OUTSIDE RECORDS SUMMARY | ~2019-07-31 | XMS | Encounter Summary ---
Demographics + + + | Address | [address] | | | [place] [address] | + + + | Home Phone [...] [place] | | | | | [address] | | + + + + + Care Team Providers + +------+ + | Care Adjunct Communications Faculty Member Name | Role | Phone | + [...] and | | 2016 | Encounter | [facility] & | DO Lon [address] | Medications | | | | Healing [address] | [address] | | | | | Deborah Mailcode: CH8C | [place], [place] | | | | | [facility] | [address] | | | | | and Healing, | [phone] | | | | | [facility] | | | | | | Floor [place], [place] | | | | | | [address] | | | | | | [phone] | | | +--------+ + + + [...]
--- OUTSIDE RECORDS SUMMARY | ~2019-07-31 | XMS | Encounter Summary ---
Demographics + + + | Address | [address] | | | [place] [address] | + + + | Home Phone | | + + + | Preferred Language | Unknown | + + + | Marital Status | | + + + | Tenriism Affiliation | [id number] | + + + | Race | Unknown | + + + | Ethnic Group | Unknown | + + + Author + + + | Author | [facility] | | | and [place] | + + + | Organization | [facility] | | [...] [place] | | | | | [address] | | + + + + + | Christy Flaherty | ECON | [address] | | | | | [place] | | | | | [address] | | + + + + + Care Team Providers + +------+ + | Care Shield Cleaner Name | Role | Phone | + +------+ + | Juan Demarco MD | PCP | | + +------+ + Encounter Details +--------+ + + + + | Date | Type | Department | Care Team | Description | +--------+ + + + + | 04/08/ | Orders Only | [facility] | Conversion | | | 2015 | | INFECTIOUS DISEASE | Transaction, | | | | | [address] | Provider Unknown | | | | | [place], [place] | | | | | | [address] | (Fax) | | | | | [phone] | | | +--------+ + + + [...]
--- OUTSIDE RECORDS SUMMARY | ~2019-07-31 | XMS | Encounter Summary ---
Demographics + + + | Address | [address] | | | [place] [address] | + + + | Home Phone [...] [place] | | | | | [address] | | + + + + + | Christy Flaherty | ECON | [address] | | | | | [place] | | | | | [address] | | + + + + + Care Team Providers + +------+ + | Care Facility Service Associate Name | Role | Phone | [...] | | | Convulsions/ | [address] | | | | | seizures | [facility] | [place]ter, | | | | | ([facility]) | [address]IVE [address] | [place] [address] | | | | | Procedures | D | Phone: | | | | | EEG SD | [place], | [phone] | | | | | EEG,W/A[place]KE | [place] [address] | Fax: | | | | | & DROW[place] | Phone: | [phone] | | | | | RECORD | [phone] | | | | | | | Fax: | | | | | | | [phone] | | +--------+--------+ + + + + Encounter Details +--------+ + + + + | Date | Type | Department | Care Team | Description | +--------+ + + + + | 08/10/ | Hospital | [facility] | Kimo Baum, | Convulsions, | | 2015 | Encounter | [facility] SLEEP | MD [address] [facility] | unspecified | | | | CENTER [address] | [address] | convulsion type | | | | [address]EL Lorenz | [place] [address] | ([facility]) | | | | [address] | [phone] | | | | | [phone] | | | +--------+ + + + [...] + | Butch Cosby MD 08/13/2014 7:46 [facility] & | | | Services ELECTROENCEPHALOGRAM PATIENT INFORMATION Patient name: | | | Daysi Flaherty Date of : | | | 1965 Referring Physician: Kimo Baum MD Interpreting | | | Physician: Butch Cosby Date/Time of Study: 08/10/14, 1100 | | | TECHNICAL INFORMATION EEG Number: [id number] Electrode Placement: The | | | electroencephalogram was recorded with a [employer] EEG | | | recording/reading station, using [...]
--- OUTSIDE RECORDS SUMMARY | ~2019-07-31 | XMS | Encounter Summary ---
Demographics + + + | Address | [address] | | | [place] [address] | + + + | Home Phone [...] [place] | | | | | [address] | | + + + + + | Christy Grande | ECON | [address] | | | | | [place] | | | | | [address] | | + + + + + Care Team Providers + +------+ + | Care Autocad Designer Name | Role | Phone | [...] [place] | | | | | [place], [place] | [address] | | | | | [address] | [phone] | | | | | [phone] | | | +--------+ + + + [...] | | | function. 4. There is hywa-zh-csouetko aortic regurgitation. 5. In | | | [...] function. 4. There | | | is urvc-ta-nuurqslk aortic regurgitation. 5. In comparison to the [...] | | | Aortic Valve: There is uwrk-jm-pxbhceop aortic regurgitation, | | | decreased from [...] 0.45 m/s | | | MV Dec Bland: 2.84 m/s2 MV DecT: 216.66 ms MV E Geogre: 0.61 | | | m/s MV E/A Ratio: 1.36 MV PHT: 62.83 ms MVA By PHT: 3.50 | | | cm2 Septal e': 0.06 m/s Septal E/e': 8.91 Lateral e': 0.08 | | | m/s Lateral E/e': 7.04 TR maxP.53 mmHg TR Vmax: 1.77 | | | m/s RV s': 0.09 m/s Coder: COURT Authenticated by: | | | Sarthak [...] normal in size and function.4. There is dpls-ev-pxkrjjnd aortic regurgitation. 5. In | | comparison [...] on a previous KRAIG.Aortic Valve: There is imgd-wa-kaunpmql aortic regurgitation, | | decreased from moderate [...] | 5.55 cmLVPWd: 0.78 cmLVOT Area: 3.90 mz8JXOQ Diam: 2.22 cm%FS: 21.16 %EF(Teich): | | 42.51 %ESV(Teich): 86.63 mlLVIDs: 4.37 cmSV(Teich): 64.06 mlRV Major: 8.82 | | cmRV Minor: 3.15 cmLVEF MOD A4C: 57.64 %SV MOD A4C: 113.24 mlLVEDV MOD A4C: | | 196.46 mlLVLd A4C: 9.01 cmLVESV MOD A4C: 83.21 mlLVLs A4C: 8.29 cmLAESV(A-L): | | 48.21 mlLAESV Index (A-L): 20.96 ml/m2LAAs A2C: 16.67 tm5KRVPM A-L A2C: 52.96 | | mlLALs A2C: 4.45 cmLAAs A4C: 15.18 aq4JCXHZ A-L A4C: 41.97 mlLALs A4C: 4.66 | | cmRAAs: 11.25 zi7KXMUB A-L: 24.67 mlRAESV MOD: 24.34 mlRALs: 4.35 cmTAPSE: | | 2.25 cmAV maxP.73 mmHgAV meanP.49 mmHgAV Vmax: 1.78 m/Stormy Vmean: 1.19 | | m/Stormy VTI: 38.51 cmAVA Vmax: 1.78 cm2AVA (VTI): 2.07 ga1ARNU (Vmax): 0.00 | | cm2/m2AVAI (VTI): 0.00 cm2/m2LVOT maxP.67 mmHgLVOT meanP.41 mmHgLVSI Dopp: | | 34.67 ml/m2LVSV Dopp: 79.74 mlLVOT Vmax: 0.81 m/sLVOT Vmean: 0.56 m/sLVOT VTI: | | 20.44 cmMV A George: 0.45 m/sMV Dec Bland: 2.84 m/s2MV DecT: 216.66 msMV E George: | | 0.61 m/sMV E/A Ratio: 1.36MV PHT: 62.83 msMVA By PHT: 3.50 nj2Ekmngq e': 0.06 | | m/sSeptal E/e': 8.91Lateral e': 0.08 m/sLateral E/e': 7.04TR maxP.53 mmHgTR | | Vmax: 1.77 m/sRV s': 0.09 m/s Coder: DBSAuthenticated by: Sarthak Busby | | LehrReport Date/Time: 08-03-2018 19:45:5 IMPRESSION: 1. This was a technically difficult | | study with suboptimal views.2. Overall left ventricular systolic function is low-normal | | with an EF between 50 - 55 %.3. The right ventricle is normal in size and function.4. | | There is anlo-yy-stvawnan aortic regurgitation. 5. In comparison to the [...] A George: 0.45 m/s | |MV Dec Bland: 2.84 m/s2 | |MV DecT: 216.66 ms [...] |RV s': 0.09 m/s | | | |Coder: DBS | |Authenticated by: Sarthak Lucia | |Report Date/Time: 5-8-2019 19:45:5 | | | |IMPRESSION: | |1. This was a technically difficult study with suboptimal views. | |2. Overall left ventricular systolic function is low-normal with an EF between 50 - 55 %. | |3. The right ventricle is normal in size and function. | |4. There is hqhf-ms-vdjvhbee aortic regurgitation. 5. In comparison to the previous echocar diographic study, done 07/20/16, only minor changes are noted, as reported below. | + + documented in this encounter Visit Diagnoses Not on filedocumented in this encounter"
--- OUTSIDE RECORDS SUMMARY | ~2019-07-31 | XMS | Encounter Summary ---
Demographics + + + | Address | [address] | | | [place] [address] | + + + | Home Phone [...] [place] | | | | | [address] | | + + + + + Care Team Providers + +------+ + | Care Optometric Tech Name | Role | Phone | [...] | [facility] [address] | [address] [facility] | - Disregard | | | | [address] | [facility] | | | | | Mailcode: Center | [place], [place] | | | | | for Health and | [address] | | | | | [facility] | [phone] | | | | | [place], [place] | | | | | | [address] | | | | | | [phone] | | | +--------+ + + + [...]
--- OUTSIDE RECORDS SUMMARY | ~2019-07-31 | XMS | Clinical Summary ---
Demographics + + + | Address | [address] | | | [place] [address] | + + + | Home Phone [...] [place] | | | | | [address] | | + + + + + | Christy Flaherty | ECON | [address] | | | | | [place] | | | | | [address] | | + + + + + Care Team Providers + +------+ + | Care Yarn Twister Name | Role | Phone | + [...] | [employer] | MODA | [id number] | | [phone] | | Medica | | MEDICAID HMO | HEALTH | | 015-Pr | 1 | | id | | | MDCD | | esent | | | | | | [place] | | | | | | + +--------+ +--------+ +---------+--------+ | [employer]OADSPIRE | BROADS | [id number] | | [phone] | | Indemn | [...] [place] | | | 7 (Home) | [address] | + +--------+ +--------+ + + | Daysi Flaherty | Worker | Self | [birth year] | [address] | | | [address] | | 1966 | [phone] | [place] [address] | | | | | | 7 (Home) | | + +--------+ +--------+ + + Advance Directives + + + + + | Type | Date Recorded | Patient | Explanation | | | | Ambulatory Care | | + + + + + | Power of | | | | | Sales Stock Associate | | | | + + + + + | Advance | 08/10/2014 10:15 | | | | Directive | AM | | | + + + + +
--- OUTSIDE RECORDS SUMMARY | ~2019-07-31 | XMS | Encounter Summary ---
Demographics + + + | Address | [address] | | | [place] [address] | + + + | Home Phone | | + + + | Preferred Language | Unknown | + + + | Marital Status | | + + + | Anabaptism Affiliation | ASG | + + + | Race | White | + + + | Ethnic Group | Not or | + + + Author + + + | Author | [facility] | + + + | Organization | [facility] | + + + | Address | Unknown | + + + | Phone | Unavailable | + + + Support + + + + + | Name | Relationship | Address | Phone | + + + + + | Christy Flaherty | ECON | [address] | | | | | [place] | | | | | [address] | | + + + + + Care Team Providers + +------+ + | Care Chainstitch Seat Joiner Name | Role | Phone | + +------+ + | Jarvis Willard MD | PCP | | + +------+ + Encounter Details +--------+ + + + + | Date | Type | Department | Care Team | Description | +--------+ + + + + | 02/07/ | Procedure | Diagnostic Imaging | | | | 2019 | Pass | Services at [facility] | | | | | | [address] | | | | | | Jayshree BRIONES | | | | | | [address] | | | | | | [place], [place] | | | | | | [address] | | | | | | [phone] | | | +--------+ + + + [...]
[~2019-07-31 19:58] MED LIST changes: +VITAMIN D21250 MCG PO
--- OUTSIDE RECORDS SUMMARY | 2019-07-31 20:00 | XMS ---
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 Security Bottle Sorter Events No recent Security Events currently on file CRITERIA MET - [facility] - Has Care Guidelines - PDMP - [facility] - 2 Visits in 30 Days CARE PROVIDERS Sky Quach [facility] 09/06/2018-Current PHONE: [phone] BENJY WILLARD Internal Medicine 03/13/2019-Current PHONE: Unknown Maria Elena has no Care Guidelines for this patient. Care History Medical/Surgical 07/14/2019 [facility] Patient advised at Clinic visit on 07/06/2019 to stay home 72 hours after no symptoms that have been reported as resolved during ED visit on 07/14/2019.\T\ nbsp; Patient reports of cardiac concerns.\T\nbsp; Per discussion with spouse he has seen kraft mill operator in [facility] multiple times, but they can\T\#39;t seem to help him.\T\nbsp; Patient does not see kraft mill operator again until September.\ T\nbsp; \T\quot;No use in follow up visit with PCP at this time\T\quot;.\T\ nbsp; Scheduled appointment with Dr. Willard on 08/31/2019. 09/06/2018 [facility] - Patient is currently established with [facility]. If patient is seen in the ED during business hours. Please contact CHWs at [facility]. Care Recommendation: If this patient has had 5 or more Emergency Department visits in the last 12 months.\T\nbsp; Patient will require education on the scope and purpose of the ED as an acute care provider not a Primary Care Provider and should not be utilized for chronic conditions.\T\nbsp; These are guidelines and the provider should exercise clinical judgment when providing care. E.D. VISIT COUNT (12 MO.) 6 [facility]. TOTAL 6 NOTE: Visits indicate total known visits. 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 08/31/2018 11:27 [facility] [place] TYPE: Emergency COMPLAINT: - POSS POST OP PROBLEM DIAGNOSES: - Pure hypercholesterolemia, unspecified - Allergy status to other drugs, medicaments and biological sub - Acquired absence of other specified parts of digestive tract - Epilepsy, unspecified, not intractable, without status epilep - Other chest pain - Radiographic dye allergy status - Other intermediate school teacher (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 INPATIENT VISIT TRACKING (12 MO.) 08/03/2018 14:00 [facility] [place] TYPE: Observation COMPLAINT: - [place] W/IOC DIAGNOSES: - Disorder of brain, unspecified - Epileptic seizures related to external causes, not intractabl - Vitamin D deficiency, unspecified - Altered mental status, unspecified - Other usp (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 - Allergy status to other drugs, medicaments and biological sub - Chronic cholecystitis - Radiographic dye allergy status - Chronic pain syndrome - Arthropathic psoriasis, unspecified - Nonrheumatic aortic (valve) insufficiency - Hyperlipidemia, unspecified [email or web address]
== END 2019-07-31 22:11 | disposition home or self-care (01) ==
LOC: ED 19:58
DX: G40.909 Epilepsy, unspecified, not intractable, without status epilepticus (principal); G43.909 Migraine, unspecified, not intractable, without status migrainosus; E78.00 Pure hypercholesterolemia, unspecified; Z91.041 Radiographic dye allergy status; Z88.8 Allergy status to other drugs, medicaments and biological substances; Z79.899 Other long term (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
CPT/HCPCS: 70450; 80053; 85025; 96365; 99284-25; J1953

== ENCOUNTER 2020-02-11 11:04 | Emergency (ER) | payer OTHER ==
[~2020-02-11] VITALS: Ht 177.8 cm; Wt 104.3 kg
--- OUTSIDE RECORDS SUMMARY | 2020-02-11 11:06 | XMS ---
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 Security Java Core Developer Events No recent Security Events currently on file CRITERIA MET - [facility] - Has Care Guidelines CARE PROVIDERS Sky Quach [facility] 09/06/2018-Current PHONE: [phone] BENJY WILLARD Internal Medicine 03/13/2019-Current PHONE: Unknown Maria Elena has no Care Guidelines for this patient. Care History Medical/Surgical 07/14/[address] [facility] Patient advised at Clinic visit on 07/06/2019 to stay home 72 hours after no symptoms that have been reported as resolved during ED visit on 07/14/2019.\T\ nbsp; Patient reports of cardiac concerns.\T\nbsp; Per discussion with spouse he has seen manager apple in [facility] multiple times, but they can\T\#39;t seem to help him.\T\nbsp; Patient does not see manager apple again until September.\ T\nbsp; \T\quot;No use in follow up visit with PCP at this time\T\quot;.\T\ nbsp; Scheduled appointment with Dr. Willard on 08/31/2019. 09/06/[address] [facility] - Patient is currently established with [facility]. If patient is seen in the ED during business hours. Please contact CHWs at [facility]. Care Recommendation: If this patient has had [...] care. E.D. VISIT COUNT (12 MO.) 5 [facility] H. TOTAL 5 NOTE: Visits indicate total known visits. ED/UCC VISIT TRACKING (12 MO.) 02/11/2020 11:04 [facility] [place] TYPE: Emergency COMPLAINT: - SEIZURE 07/31/2019 19:59 [facility] [place] [place] TYPE: Emergency COMPLAINT: - SEIZURE DIAGNOSES: - Other terminal gauger (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 - Pure hypercholesterolemia, unspecified - Epilepsy, unspecified, not intractable, without status epilepticus - Migraine, unspecified, not intractable, without status migrainosus - Allergy status to other drugs, medicaments and biological substances - Radiographic dye allergy status 07/14/2019 02:23 [facility] [facility] [place] TYPE: Emergency COMPLAINT: - SOB DIAGNOSES: - Other correction (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 - Palpitations - Migraine, unspecified, not intractable, without status migrainosus - Pure hypercholesterolemia, unspecified 06/09/2019 12:[address] [facility] [place] TYPE: Emergency COMPLAINT: - DIZZINESS, HIGH BP DIAGNOSES: - Other terminal gauger (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 - Dizziness and giddiness - Latex allergy status - Syncope and collapse - Epilepsy, unspecified, not intractable, without status epilepticus - Allergy status to other drugs, medicaments and biological substances - Migraine, unspecified, not intractable, without status migrainosus 03/11/2019 05:01 [facility] [place] TYPE: Emergency COMPLAINT: - SORE THROAT DIAGNOSES: - Radiographic dye allergy status - Allergy status to other drugs, medicaments and biological substances - Migraine, unspecified, not intractable, without status migrainosus - Acute pharyngitis, unspecified INPATIENT VISIT TRACKING (12 MO.) No inpatient visits to display in this time frame [id number]
== END 2020-02-11 16:32 | disposition home or self-care (01) ==
LOC: ED 11:04
DX: G40.909 Epilepsy, unspecified, not intractable, without status epilepticus (principal); E78.00 Pure hypercholesterolemia, unspecified; G43.909 Migraine, unspecified, not intractable, without status migrainosus; Z88.8 Allergy status to other drugs, medicaments and biological substances; Z79.899 Other long term (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
CPT/HCPCS: 96374; 96375; 99284-25; J1885; J2405

== ENCOUNTER 2020-04-01 21:30 | Emergency (ER) | payer OTHER ==
[~2020-04-01] VITALS: Ht 177.8 cm; Wt 108.9 kg
--- OUTSIDE RECORDS SUMMARY | 2020-04-01 21:44 | XMS ---
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 Care History Medical/Surgical 07/14/2019 [facility] Patient advised at Clinic visit on 07/06/2019 to stay home 72 hours after no symptoms that have been reported as resolved during ED visit on 07/14/2019.\T\ nbsp; Patient reports of cardiac concerns.\T\nbsp; Per discussion with spouse he has seen websphere portal developer in [facility] multiple times, but they can\T\#39;t seem to help him.\T\nbsp; Patient does not see websphere portal developer again until September.\ T\nbsp; \T\quot;No use in follow up visit with PCP at this time\T\quot;.\T\ nbsp; Scheduled appointment with Dr. Willard on 08/31/2019. 09/06/2018 [facility] - Patient is currently established with [facility]. If patient is seen in the ED during business hours. Please contact CHWs at [facility]. Care Recommendation: If this patient has had [...] care. E.D. VISIT COUNT (12 MO.) 5 [facility] H. TOTAL 5 NOTE: Visits indicate total known visits. 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 [place] TYPE: Emergency COMPLAINT: - SEIZURE DIAGNOSES: - Other skilled nursing (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 - Pure hypercholesterolemia, unspecified - Epilepsy, unspecified, not intractable, without status epilepticus - Migraine, unspecified, not intractable, without status migrainosus - Allergy status to other drugs, medicaments and biological substances - Radiographic dye allergy status 07/14/2019 02:23 [facility] [place] TYPE: Emergency COMPLAINT: - SOB DIAGNOSES: - Other skilled nursing (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 - Palpitations - Migraine, unspecified, not intractable, without status migrainosus - Pure hypercholesterolemia, unspecified 06/09/2019 12:[address] [facility] [address] 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
[2020-04-01] MEDS ORDERED: LEVETIRACETAM500 MG PO (21:49)
[2020-04-02] MEDS ORDERED: VALIUM5 MG PO (01:45)
[2020-04-02] MEDS ORDERED: LIDODERM1 EACH TOP (01:45)
--- NOTE | 2020-04-02 06:58 | EKG ---
[facility] [address] [facility] [place] [address] Signed Normal sinus rhythm Normal ECG When compared with ECG of 14-JUL-2019 02:48, Vent. rate has increased BY 43 BPM Confirmed by MINA MTZ MD ([id number]) on 04/02/2020 6:58:18 AM Electronically Signed By: MINA MTZ MD 04/02/20 0658 PATIENT NAME: JOHNNY GRANDE Electrocardiogram DATE OF : 63 PHYSICIAN: MINA MTZ MD REPORT #: [id number] REPORT IS CONFIDENTIAL AND NOT TO BE RELEASED WITHOUT AUTHORIZATION
== END 2020-04-02 02:00 | disposition home or self-care (01) ==
LOC: ED 21:30
DX: R07.9 Chest pain, unspecified (principal); M25.511 Pain in right shoulder; G43.909 Migraine, unspecified, not intractable, without status migrainosus; E78.00 Pure hypercholesterolemia, unspecified; G40.909 Epilepsy, unspecified, not intractable, without status epilepticus; Z88.8 Allergy status to other drugs, medicaments and biological substances; Z91.041 Radiographic dye allergy status; Z79.899 Other long term (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
CPT/HCPCS: 71045; 80053; 81001; 83735; 84484; 85025; 85379; 93005; 93010; 99285-25; A9270

== ENCOUNTER 2020-04-08 15:23 | Emergency (ER) | payer OTHER ==
[~2020-04-08] VITALS: Ht 177.8 cm; Wt 113.4 kg
[~2020-04-08 15:23] MED LIST changes: +LEVETIRACETAM500 MG PO; +LIDODERM1 EACH TOP; -ROSUVASTATIN CA40 MG NG; +ROSUVASTATIN CA40 MG PO; +VALIUM5 MG PO
--- OUTSIDE RECORDS SUMMARY | 2020-04-08 15:26 | XMS ---
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 Care History Medical/Surgical 07/14/2019 [facility] Patient advised at Clinic visit on 07/06/2019 to stay home 72 hours after no symptoms that have been reported as resolved during ED visit on 07/14/2019.\T\ nbsp; Patient reports of cardiac concerns.\T\nbsp; Per discussion with spouse he has seen pipeline maintenance supervisor in [facility] multiple times, but they can\T\#39;t seem to help him.\T\nbsp; Patient does not see pipeline maintenance supervisor again until September.\ T\nbsp; \T\quot;No use in follow up visit with PCP at this time\T\quot;.\T\ nbsp; Scheduled appointment with Dr. Willard on 08/31/2019. 09/06/2018 [facility] - Patient is currently established with [facility]. If patient is seen in the ED during business hours. Please contact CHWs at [facility]. Care Recommendation: If this patient has [...] care. E.D. VISIT COUNT (12 MO.) 6 [facility]. TOTAL 6 NOTE: Visits indicate total known visits. ED/UCC VISIT TRACKING (12 MO.) 04/08/2020 15:23 [facility] [place] TYPE: Emergency COMPLAINT: - COUGH,NAUSEA,HEADACHE 04/01/2020 21:30 [facility] [place] TYPE: Emergency COMPLAINT: - CHEST PAIN DIAGNOSES: - Chest pain, unspecified - Migraine, unspecified, not intractable, without status migrainosus - Allergy status to other drugs, medicaments and biological substances - Pure hypercholesterolemia, unspecified - Radiographic dye allergy status - Epilepsy, unspecified, not intractable, without status epilepticus - Pain in right shoulder - Other oysterman (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 02/11/2020 11:04 [facility] [place] TYPE: Emergency COMPLAINT: - SEIZURE DIAGNOSES: - Allergy status to other drugs, medicaments and biological substances - Other correction (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 - Epilepsy, unspecified, not intractable, without status epilepticus - Pure hypercholesterolemia, unspecified - Migraine, unspecified, not intractable, without status migrainosus 07/31/2019 19:[address] [facility] [address] [place] TYPE: Emergency COMPLAINT: - SEIZURE DIAGNOSES: - Other correction (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 - Pure hypercholesterolemia, unspecified - Epilepsy, unspecified, not intractable, without status epilepticus - Migraine, unspecified, not intractable, without status migrainosus - Allergy status to other drugs, medicaments and biological substances - Radiographic dye allergy status 07/14/2019 02:[address] [facility] [address] [place] [place] TYPE: Emergency COMPLAINT: - SOB DIAGNOSES: - Other oysterman (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 - Palpitations - Migraine, unspecified, not intractable, without status migrainosus - Pure hypercholesterolemia, unspecified 06/09/2019 12:33 [facility] [address] [place] [place] TYPE: Emergency COMPLAINT: - DIZZINESS, HIGH BP DIAGNOSES: - Other correction (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 - Dizziness and giddiness - Latex allergy status - Syncope and collapse - Epilepsy, unspecified, not intractable, without status epilepticus - Allergy status to other drugs, medicaments and biological substances - Migraine, unspecified, not intractable, without status migrainosus INPATIENT VISIT TRACKING (12 MO.) No inpatient visits to display in this time frame [id number]
[2020-04-08] MEDS ORDERED: KEPPRA500 MG PO (15:44)
[2020-04-08] MEDS ORDERED: ONDANSETRON ODT8 MG PO (18:00)
[2020-04-08] MEDS ORDERED: GUAIFENESIN AC473 ML PO (19:48)
== END 2020-04-08 20:50 | disposition home or self-care (01) ==
LOC: ED 15:23
DX: U07.1 COVID-19 (principal); Z88.8 Allergy status to other drugs, medicaments and biological substances; Z91.041 Radiographic dye allergy status; Z79.899 Other long term (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
CPT/HCPCS: 71045; 80053; 83735; 84484; 85025; 96374; 96375; 99283-25; C9803; J1100; J1885; J2405; J7030; U0003

== ENCOUNTER 2020-04-13 18:14 | Inpatient (IN) | payer OTHER ==
[~2020-04-13] VITALS: Ht 177.8 cm; Wt 106.1 kg
[~2020-04-13 18:14] MED LIST changes: +GUAIFENESIN AC473 ML PO; +KEPPRA500 MG PO; +ONDANSETRON ODT8 MG PO
--- OUTSIDE RECORDS SUMMARY | 2020-04-13 18:16 | XMS ---
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 Care History Medical/Surgical 07/14/2019 [facility] Patient advised at Clinic visit on 07/06/2019 to stay home 72 hours after no symptoms that have been reported as resolved during ED visit on 07/14/2019.\T\ nbsp; Patient reports of cardiac concerns.\T\nbsp; Per discussion with spouse he has seen blade groover in [facility] multiple times, but they can\T\#39;t seem to help him.\T\nbsp; Patient does not see blade groover again until September.\ T\nbsp; \T\quot;No use in follow up visit with PCP at this time\T\quot;.\T\ nbsp; Scheduled appointment with Dr. Willard on 08/31/2019. 09/06/2018 [facility] - Patient is currently established with [place] [...] providing care. E.D. VISIT COUNT (12 MO.) 7 [facility]. TOTAL 7 NOTE: Visits indicate total known visits. ED/UCC VISIT TRACKING (12 MO.) 04/13/2020 18:14 [facility] [place] TYPE: Emergency COMPLAINT: - FLU LIKE SYMPTOMS 04/08/2020 15:23 [facility] [place] TYPE: Emergency COMPLAINT: - COUGH,NAUSEA,HEADACHE DIAGNOSES: - Other group home (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 - Cough - Radiographic dye allergy status - Allergy status to other drugs, medicaments and biological substances - COVID-19 04/01/2020 21:30 [facility] [place] TYPE: Emergency COMPLAINT: - CHEST PAIN DIAGNOSES: - Chest pain, unspecified - Migraine, unspecified, not intractable, without status migrainosus - Allergy status to other drugs, medicaments and biological substances - Pure hypercholesterolemia, unspecified - Radiographic dye allergy status - Epilepsy, unspecified, not intractable, without status epilepticus - Pain in right shoulder - Other group home (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 02/11/2020 11:04 [facility] [place] [facility] [place] TYPE: Emergency COMPLAINT: - SEIZURE DIAGNOSES: - Allergy status to other drugs, medicaments and biological substances - Other group home (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 - Allergy status to other drugs, medicaments and biological substances - Epilepsy, unspecified, not intractable, without status epilepticus - Pure hypercholesterolemia, unspecified - Migraine, unspecified, not intractable, without status migrainosus 07/31/2019 19:59 [facility] [place] [facility] [place] TYPE: Emergency COMPLAINT: - SEIZURE DIAGNOSES: - Other group home (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 - Pure hypercholesterolemia, unspecified - Epilepsy, unspecified, not intractable, without status epilepticus - Migraine, unspecified, not intractable, without status migrainosus - Allergy status to other drugs, medicaments and biological substances - Radiographic dye allergy status 07/14/2019 02:23 [facility] [place] TYPE: Emergency COMPLAINT: - SOB DIAGNOSES: - Other group home (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 - Palpitations - Migraine, unspecified, not intractable, without status migrainosus - Pure hypercholesterolemia, unspecified 06/09/2019 12:33 [facility] [place] TYPE: Emergency COMPLAINT: - DIZZINESS, HIGH BP DIAGNOSES: - Other intermediate designer (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 - Dizziness and giddiness - Latex allergy status - Syncope and collapse - Epilepsy, unspecified, not intractable, without status epilepticus - Allergy status to other drugs, medicaments and biological substances - Migraine, unspecified, not intractable, without status migrainosus INPATIENT VISIT TRACKING (12 MO.) No inpatient visits to display in this time frame [email or web address]
--- NOTE | 2020-04-13 21:02 | NUR ---
2034 PATIENT ARRIVED TO THE UNIT VIA STRETCHER. TRANSFERED INDEPENDENTLY. REPORTED FEELING LIGHT HEADED UPON STANDING. APPEARED STEADY. RR 16-20. O2 SAT 97% ON 1L NC. PATIENT IS RESTING EASILY WITH EYES CLOSED. IV REMDEZIVIR STARTED. PO MEDS PER ORDER. PATIENT DENIED NEED TO VOID. ORIENTED TO ROOM. CALL LIGHT PROVIDED. PATIENT REQUEST THIS RN CONTACT HIS FOR AN UPDATE.
--- NOTE | 2020-04-13 22:30 | NUR ---
PATIENT TOLERATING 1L NC. UNAL EMPTIED. PATIENT DENIED ANY NEEDS. APPEARS TO BE RESTING COMFORTABLY.
--- NOTE | 2020-04-14 01:30 | NUR ---
PATIENT REPORTS FEELING FEVERISH. ORAL TEMP WNL. PATIENT FEELINGS COOL AND CLAMMY. DENIES NEED FOR ROOM TEMP CHANGES AND STATES THIS HAS BEEN GOING ON AT HOME DURING HIS ILLNESS. DENIED OTHER NEEDS. URNAL EMPTIED. IV FLUIDS PER ORDER, SITE WNL. TOLERATING 1L NC.
--- NOTE | 2020-04-14 05:30 | NUR ---
MORNING LABS DRAWN. PATIENT REPORTS FEELING "SICK", HE DESCRIBES BEING WEAK AND HAVING HOT FLASHES. ORAL TEMP WNL. PATIENT IS WARM TO THE TOUCH. NO DIAPHORESIS NOTED. VS STABLE. TOLERATING 1L NC. LABS DRAWN PER ORDER. IV FLUIDS INFUSING, SITE WNL. PATIENT VOIDING QS, URINE IS CONCENTRATED IN COLOR. LUNG SOIUNDS ARE CLEAR. PATIENT REPORTS A DRY COUGH, DENIES NEED FOR PRN COUGH MEDS.
[2020-04-14] MEDS ORDERED: DIAZEPAM5 MG PO (07:18)
--- NOTE | 2020-04-14 07:20 | NUR ---
Report received, orders acknowledged. Patient laying in bed with 1LNC in place, SpO2 of 97%. Patient talking on phone, denies needs. Call light within reach.
--- NOTE | 2020-04-14 08:00 | NUR ---
Patient laying in bed with 1LNC in place, SpO2 of 97%. Patient on RA, SpO2 remains at 95%. Vital signs taken, assessment complete. IV fluids infusing at 75 mls/hr. Patient takes a phone call and no SOB noted with conversation. Patient reports feeling better than earlier assessment (denies feeling clammy, warm, or nauseous at this time). Patient educated on benefits of sitting up in chair, using IS, deep breathing/coughing, and proning. Patient agreeable to POC. Breakfast delivered, patient reports no appetite but states "I'm going to try and get some food down." No further needs, call light within reach.
--- NOTE | 2020-04-14 09:39 | NUR ---
Dr. Huerta in room to assess patient and discuss POC
--- NOTE | 2020-04-14 11:00 | NUR ---
Patient sitting up in chair on RA, SpO2 in the mid-90's. Patient belongings collected from front desk attendant and given to patient. IV remdesivir finished infusing. Patient up to toilet, voids 350 mls of yellow urine. Patient returned to chair independently, steady on feet. IV fluids continue to infuse. Patient reports headache, prn tylenol given. Patient states "my psoriatic arthritis is back, it's in my elbows - it's never been in my elbows before." Patient requests a medicated cream, mometizone, that he has taken before for flare-ups of this condition. Will contact MD regarding patient request. Patient denies further needs, call light within reach.
--- NOTE | 2020-04-14 12:15 | NUR ---
Patient sitting up in chair on RA. Lunch delivered, patient saline locked. Denies needs, call light within reach.
--- NOTE | 2020-04-14 13:29 | NUR ---
Patient up to shower independently, all supplies in room for patient convenience. Patient reports feeling slightly nauseous, denies need for medication. Patient denies increased SOB with independent ambulation around room. Patient to shower at this time, denies further needs.
--- NOTE | 2020-04-14 14:50 | NUR ---
Patient returned to chair from shower. Warm blankets provided. Vital signs taken, assessment complete. Patient using IS, up to 1000 mls. Coughing noted after use. Patient reports nausea is improved from earlier assessment. Patient remains on RA, SpO2 ranging between 96-99%. Patient reports increased SOB and fatigue after activity of showering. Denies further needs, call light within reach.
[2020-04-14] MEDS ORDERED: CLOBETASOL PROP15 G1 TOP (15:25)
[2020-04-14] MEDS ORDERED: MOMETASONE FURO15 G1 TOP (15:57)
--- NOTE | 2020-04-14 16:00 | NUR ---
Called Dr. Huerta regarding patient request to use home topical steroid cream for psoriatic arthritis. Orders acknowledged. Patient updated.
--- NOTE | 2020-04-14 18:18 | NUR ---
Patient sitting up in chair watching tv. Patient on RA, SpO2 of 94%. Patient denies appetite, does not want to eat any dinner. IS on tableside, patient denies needs at this time. Call light within reach.
--- NOTE | 2020-04-14 19:30 | NUR ---
SHIFT REPORT RECEIVED. PATIENT RESTING IN RECLINER ON THE PHONE. DENIES NEEDS AT THIS TIME.
--- NOTE | 2020-04-14 20:45 | NUR ---
SCHEDULED MEDS PROVIDED. PATIENT REPORTS FEELING WARM OCCATIONALLY. HAS BEEN INTO THE BATHROOM TO USE COOL WATER TO WASH OFF. ORAL TEMP WNL AT THIS TIME. VS STABLE. TOLERATING ROOM AIR. NO NAUSEA OR LOOSE STOOLS TONIGHT. GOOD ORAL INTAKE. LUNG SOUNDS ARE CLEAR THORUGHOUT. PATIENT USING IS REGULARLY.
--- NOTE | 2020-04-14 22:20 | NUR ---
TELE BATTERY CHANGED. PATIENT RESTING IN BED. DENIES ANY CONCERNS OR NEEDS.
--- NOTE | 2020-04-15 03:48 | NUR ---
PATIENT REPORTS FREQUENT URINATION. BUT DENIES FEELING SOB WITH ACTIVITY AND NO PAIN. TOLERATING ROOM AIR. TELE IN PLACE. PATIENT DENIED NEEDS. UP TO THE BATHROOM AT THIS TIME INDEPENDENTLY.
--- NOTE | 2020-04-15 06:30 | NUR ---
PATIENT IS UP SITTING ON THE COUCH READING. PATIENT REPORTS FEELING WELL THIS MORNING BUT DID NOT SLEEP WELL. DISCUSSED POSSIBLY REDUCING FLUIDS IN THE EVENING TO PRVENT FREQUENT BATHROOM BREAKS AND TALKING TO MD ABOUT A SLEEP AID. PATIENT TOLERATING ROOM AIR AND INDEPENDENT ACTIVITY. VS STABLE. BREAKFAST ORDER RECEIVED.
--- NOTE | 2020-04-15 06:59 | NUR ---
PATIENT HAVING NAUSEA AND DRY HEAVES. PRN ZOFRAN PROVIDED.
--- NOTE | 2020-04-15 07:49 | NUR ---
Report received, orders acknowledged. Patient sitting up in chair. Reports nausea is improved with zofran. Patient on RA, SpO2 of 94%. Asks to hold breakfast due to recent upset stomach. Denies further needs, call light within reach.
--- NOTE | 2020-04-15 09:15 | NUR ---
Patient sitting up in chair, ambulates independently back to bed. Patient on RA, SpO2 in the mid-90's. Vital signs taken, assessment complete. Crackles auscultated in bases of lungs. AM medications given. Patient denies TOM or pain. IV remdesivir hung and infusing. Plan for patient to shower following completion of IV medication. Patient reports SOB is improved. Denies further needs, call light within reach.
--- NOTE | 2020-04-15 09:45 | NUR ---
Dr. Huerta in room to assess patient and discuss POC.
--- NOTE | 2020-04-15 10:30 | NUR ---
IV remdesivir finished infusing. Patient saline locked. Supplies gathered for patient to take a shower independently. Patient able to ambulate independently in room, no SOB noted with activity. Patient reports feeling stronger and able to breathe better than yesterday. Patient continues on RA, SpO2 in the mid-90's. Patient to shower, denies needs at this time.
--- NOTE | 2020-04-15 11:45 | NUR ---
Patient finished showering, new gown put on. Patient able to ambulate independently on RA, no SOB noted. Lunch delivered, patient able to get meal through passthrough. Tele D/C'd per Dr. Huerta's order. Patient denies needs, call light within reach.
--- NOTE | 2020-04-15 13:12 | NUR ---
MED REC COMPLETE
--- NOTE | 2020-04-15 13:32 | NUR ---
UNABLE TO VISIT PT IN PERSON DUE TO PRECAUTIONS. WILL FOLLOW NEEDED
--- NOTE | 2020-04-15 13:45 | NUR ---
Patient sitting up in chair on RA, respirations even and unlabored. Patient waves to RN through door, denies needs at this time. Call light within reach.
--- NOTE | 2020-04-15 16:00 | NUR ---
Patient sitting up in chair. Patient on RA, respirations even and unlabored. Vital signs taken, assessment complete. SpO2 of 95% on RA. Crackles auscultated in bases of lungs. Patient uses IS, which elicits a dry cough. Patient denies pain or nausea. No further needs, call light within reach.
--- NOTE | 2020-04-15 18:08 | NUR ---
Patient sitting up in chair on RA. Patient waves to RN through the door, denies needs. Call light within reach.
--- NOTE | 2020-04-15 19:00 | NUR ---
Patient sitting up in chair, uses call light to report feeling a pre-seizure aura. This RN in room to assist patient from chair to bed. Scheduled keppra given early, as well as melatonin. Patient laying on right side with warm blankets. All lights turned off. Patient states "My aura's are still happening. I want to try to just fall asleep. When I have my seizures at home they last 25 minutes. I can't talk during them but I can hear you. My usually sits with me and tells me she's there for me." Patient denies further needs. Call light within reach, patient instructed to call for nursing staff if patient begins to have a seizure. Patient agreeable.
--- NOTE | 2020-04-15 20:00 | NUR ---
SHIFT REPORT RECEIVED FROM ABBI ULLOA. ASSESSMENT COMPLETED AT THIS TIME. PT LAYING ON LEFT SIDE, BP TAKEN ON RIGHT ARM: 88/43 (57). PT DENIES PAIN AND SOB. LUNGS CLEAR, DIM, RA. HR REGULAR, RATE IN 50'S. BOWEL TONES ACTIVE, DENIES NAUSEA. IV PATENT AND SALINE LOCKED. PT TRYING TO SLEEP, WILL CALL IF HE FEELS HE IS GOING TO HAVE A SEIZURE. CALL LIGHT WITHIN REACH. LIGHTS DIMMED, PT HAS SOOTHING MUSIC PLAYING.
--- NOTE | 2020-04-15 22:00 | NUR ---
PT RESTING IN BED AT THIS TIME, NO APPARENT DISTRESS. RESPIRATIONS EVEN AND UNLABORED, ON ROOM AIR.
--- NOTE | 2020-04-16 00:20 | NUR ---
CHECKED IN ON PT WHO IS AWAKE AT THIS TIME. UP TO BATHROOM INDEPENDENTLY AND THEN BACK TO BED. ASSESSMENT COMPLETED, UNCHANGED. PT FEELS THAT THE PRE-SEIZURE AURA WAS EXPERIENCING EARLIER HAS RESOLVED. PT ALSO STATES THAT HE HAS HAD AN EASIER TIME SLEEPING TONIGHT WELL. NO FURTHER REQUESTS OR COMPLAINTS AT THIS TIME. CALL LIGHT AND BELONGINGS WITHIN REACH.
--- NOTE | 2020-04-16 03:00 | NUR ---
PT APPEARS TO BE ASLEEP AT THIS TIME, NO APPARENT DISTRESS. REMAINS ON ROOM AIR. RESPIRATIONS EVEN AND UNLABORED.
--- NOTE | 2020-04-16 06:00 | NUR ---
PT CALLED TO REPORT THAT HE WAS READY TO GET UP FOR THE DAY AND REQUESTED A WARM BLANKET. PT TEARFUL THIS MORNING, HE IS FRUSTRATED WITH HAVING NO APPETITE AND IS OVERWHELMED WITH COVID DIAGNOSIS IN REGARDS TO LIMITATIONS RETURNING TO WORK. DISCUSSED SUPPLEMENTING MEALS WITH ENSURE AND OTHER FOOD IDEAS. HE ALSO REQUESTED A DOCTOR'S NOTE FOR WORK WHICH I STATED I WILL PASS ALONG TO DAY SHIFT SO THAT IT CAN BE GERALDO UP WITH MD. PT FEELING BETTER AFTER DISCUSSING HIS CONCERNS. ASSESSMENT COMPLETED, UNCHANGED. BLOOD DRAWN FOR MORNING LABS ON FIRST ATTEMPT, PT TOLERATED WELL. FRESH ICE WATER PROVIDED. PT NOW SITTING ON COUCH AND READING.
--- NOTE | 2020-04-16 08:00 | NUR ---
REPORT RECEIVED FROM NIGHT RN AND PT. CARE RESUMED. PT. IS ON RA AND O2SAT. IS 96%. LUNGS DIM. IN THE BASES AND RESPIRATIONS EVEN AND UNLABORED. OCCASIONAL DRY COUGH WITH DEEP BREATHING. IV SIT WNL AND FLUSH WELL. PT. STATES THAT HE HAS HAD ON AND OFF PAIN IN HIS LLQ FOR YEARS THAT COMES AND GOES. PT. LEFT RESTING IN CHAIR EATING BREAKFAST.
--- NOTE | 2020-04-16 10:45 | NUR ---
Spoke with Daysi by phone. He is currently off . Lives with his in a 2 story home, they only use the main floor. Has 17 steps to home with handrails. States he was able to walk these steps whe at his worst. He will go home with who stays at home and will assist him. He has been contacted by the Health dept. 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 He is concerned for their safety. Denies any needs for discharge.
--- NOTE | 2020-04-16 11:13 | NUR ---
PRECAUTIONS KEEP ME FROM VISITING IN PERSON, WILL HAVE RN OFFER PHONE SERVICE IF PT DESIRES.
[2020-04-16] MEDS ORDERED: DEXAMETHASONE4 MG PO ×2 (11:30→11:35)
--- NOTE | 2020-04-16 11:45 | NUR ---
PATIENT ASSESSMENT COMPLETED. PT. DENIES PAIN. O2 SAT. IS 95% ON RA. TEMP. IS 98. IV SITE WNL. LUNGS DIM. IN THE BASES AND CRACKLES AUSCULTATED IN THE LLL. DISCUSSES PLAN FOR PT. TO SHOWER AND CHANGE BEDDING AFTER LUNCH.
--- NOTE | 2020-04-16 14:00 | NUR ---
PATIENT UP TO THE SHOWER. BEDDING AND GOWN CHANGED. PT SHOWERING INDEPENDENTLY AND INSTRUCTED TO SIT DOWN AND AND/OR USE CALL LIGHT IF NEEDED. PT. DRANK AN ENSURE FOR LUNCH AND STATED HE IS NOT VERY HUNGRY. AMBULATED INDEPENDENTLY TO THE BATHROOM AND TOLERATED WELL.
--- NOTE | 2020-04-16 14:57 | NUR ---
PATIENT ASSISTED WITH APPLYING STEROID CREAM TO ELBOWS AND DRESSED WITH GAUZES AND TAPE. PT. DENIES FURTHER NEEDS AND LEFT RESTING IN CHAIR.
--- NOTE | 2020-04-16 17:19 | NUR ---
PATIENT UP AND WALKING AROUND THE ROOM. DINNER DELIVERED AND PT. STATED HE DOES NOT HAVE AN APPETITE BUT WILL TRY AND EAT.
--- NOTE | 2020-04-16 20:47 | NUR ---
SHIFT REPORT RECEIVED FROM ABBI JARVIS. ASSESSMENT COMPLETED AT THIS TIME. DENIES PAIN. LUNGS CLEAR, DIM IN BASES, RA. DENIES SOB AT REST AND DENIES CHEST PAIN. BOWEL TONES ACTIVE, PT REPORTS APPETITE IS IMPROVING, DENIES NAUSEA. SKIN GROSSLY INTACT, NO EDEMA NOTED, PULSES WELL FELT. IV PATENT AND SALINE LOCKED, DRESSING CHANGED IT HAD BECOME LOOSE AFTER HIS SHOWER. FRESH ICE WATER AND WARM BLANKET PROVIDED. PT DENIES REQUESTS OR COMPLAINTS AT THIS TIME, CALL LIGHT AND BELONGINGS WITHIN REACH.
--- NOTE | 2020-04-16 22:39 | NUR ---
PT APPEARS TO BE SLEEPING AT THIS TIME, NO APPARENT DISTRESS. RESPIRATIONS EVEN AND UNLABORED, ON ROOM AIR.
--- NOTE | 2020-04-17 00:21 | NUR ---
PT APPEARS TO BE ASLEEP AT THIS TIME, NO APPARENT DISTRESS. RESPIRATIONS EVEN AND UNLABORED ON ROOM AIR.
--- NOTE | 2020-04-17 02:11 | NUR ---
PT CONTINUES TO SLEEP, NO APPARENT DISTRESS. RESPIRATIONS EVEN AND UNLABORED.
--- NOTE | 2020-04-17 06:05 | NUR ---
PT AWAKE NOW, REPORTS THAT HE SLEPT WELL. HE HAS BEEN VOIDING QS THROUGHOUT THE NIGHT. ASSESSMENT COMPLETED AND UNCHANGED. NO COMPLAINTS OF PAIN, NAUSEA, OR SOB THIS MORNING. BLOOD DRAWN FOR MORNING LABS, PT TOLERATED WELL. FRESH ICE WATER PROVIDED. PT DENIES FURTHER REQUESTS AT THIS TIME.
--- NOTE | 2020-04-17 08:00 | NUR ---
REPORT RECEIVED FROM NIGHT RN AND CARE RESUMED. PT. DENIES PAIN AND AMBULATES INDEPENDENTLY. IV SITE WNL AND FLUSHES WELL. 02 SAT IS 96% ON RA. MORNING MEDS GIVEN AND PT. LEFT RESTING IN BED EATING BREAKFAST.
--- NOTE | 2020-04-17 08:25 | NUR ---
CALL LIGHT ON. IV PUMP BEEPING. REMDESIVIR INFUSION COMPLETE. SL. pt STATED HE WOULD GET UP AND GET READY FOR THE DAY. NO OTHER REQUESTS THIS TIME.
--- NOTE | 2020-04-17 10:30 | NUR ---
DISCHARGE INSTRUCTIONS REVIEWED WITH PATIENT. PT. DISCHARGED BY WHEELCHAIR AND PICKED UP BY HIS VIA CAR. PT. TOOK ALL PERSONAL BELONGINGS WITH HIM.
== END 2020-04-17 10:30 | disposition home or self-care (01) | DRG 177 ==
LOC: ED 18:14 → CCU 20:00
PROVIDERS: ADMIT Internal Medicine; ATTEND Internal Medicine
DX: U07.1 COVID-19 (principal); J12.82 Pneumonia due to coronavirus disease 2019; R09.02 Hypoxemia; R11.2 Nausea with vomiting, unspecified; R19.7 Diarrhea, unspecified; I09.9 Rheumatic heart disease, unspecified; E78.5 Hyperlipidemia, unspecified; G40.909 Epilepsy, unspecified, not intractable, without status epilepticus; R79.89 Other specified abnormal findings of blood chemistry; Z79.899 Other long term (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; Z88.8 Allergy status to other drugs, medicaments and biological substances; Z91.041 Radiographic dye allergy status
CPT/HCPCS: 71045; 80053; 83605; 83615; 83735; 85025; 85379; 99285-25; J1650; J2405; J3480; J7030; J7050; J8540

== ENCOUNTER 2020-05-15 13:37 | Observation (INO) | payer OTHER ==
[~2020-05-15] VITALS: Ht 177.8 cm; Wt 98.7 kg
[~2020-05-15 13:37] MED LIST changes: +CLOBETASOL PROP15 G1 TOP; +DEXAMETHASONE4 MG PO; +DIAZEPAM5 MG PO; +MOMETASONE FURO15 G1 TOP
--- OUTSIDE RECORDS SUMMARY | 2020-05-15 13:40 | XMS ---
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 Care History Medical/Surgical 04/15/2020 [facility] Patient admitted as Covid 19 positive with exacerbated and on going symptoms. 07/14/2019 [facility] Patient advised at Clinic visit on 07/06/2019 to stay home 72 hours after no symptoms that have been reported as resolved during ED visit on 07/14/2019.\T\ nbsp; Patient reports of cardiac concerns.\T\nbsp; Per discussion with spouse he has seen stemming machine operator in [facility] multiple times, but they can\T\#39;t seem to help him.\T\nbsp; Patient does not see stemming machine operator again until September.\ T\nbsp; \T\quot;No use in follow up visit with PCP at this time\T\quot;.\T\ nbsp; Scheduled appointment with Dr. Willard on 08/31/2019. 09/06/2018 [facility] - Patient is currently established with [facility]. If patient is seen in the ED during business hours. Please contact CHWs at [facility]. Care Recommendation: If this patient has had [...] providing care. E.D. VISIT COUNT (12 MO.) 8 [facility]. TOTAL 8 NOTE: Visits indicate total known visits. ED/UCC VISIT TRACKING (12 MO.) 05/15/2020 13:[address] [facility] [place] TYPE: Emergency COMPLAINT: - DIFFICULTY BREATHING 04/13/2020 18:[address] [facility] [place] Emergency COMPLAINT: - FLU LIKE SYMPTOMS 04/08/2020 15:[address] [facility] [place] TYPE: Emergency COMPLAINT: - COUGH,NAUSEA,HEADACHE DIAGNOSES: - Other fci (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 - Cough - Radiographic dye allergy status - Allergy status to other drugs, medicaments and biological substances - COVID-19 04/01/2020 21:[address] [facility] [place] TYPE: Emergency COMPLAINT: - CHEST PAIN DIAGNOSES: - Chest pain, unspecified - Migraine, unspecified, not intractable, without status migrainosus - Allergy status to other drugs, medicaments and biological substances - Pure hypercholesterolemia, unspecified - Radiographic dye allergy status - Epilepsy, unspecified, not intractable, without status epilepticus - Pain in right shoulder - Other fci (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 02/11/2020 11:[address] [facility] [place] TYPE: Emergency COMPLAINT: - SEIZURE DIAGNOSES: - Allergy status to other drugs, medicaments and biological substances - Other termite helper (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 - Allergy status to other drugs, medicaments and biological substances - Epilepsy, unspecified, not intractable, without status epilepticus - Pure hypercholesterolemia, unspecified - Migraine, unspecified, not intractable, without status migrainosus 07/31/2019 19:[address] [facility] [place] TYPE: Emergency COMPLAINT: - SEIZURE DIAGNOSES: - Other fci (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 - Pure hypercholesterolemia, unspecified - Epilepsy, unspecified, not intractable, without status epilepticus - Migraine, unspecified, not intractable, without status migrainosus - Allergy status to other drugs, medicaments and biological substances - Radiographic dye allergy status 07/14/2019 02:[address] [facility] [place] TYPE: Emergency COMPLAINT: - SOB DIAGNOSES: - Other termite helper (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 - Palpitations - Migraine, unspecified, not intractable, without status migrainosus - Pure hypercholesterolemia, unspecified 06/09/2019 12:33 [facility] [place] TYPE: Emergency COMPLAINT: - DIZZINESS, HIGH BP DIAGNOSES: - Other fci (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 - Dizziness and giddiness - Latex allergy status - Syncope and collapse - Epilepsy, unspecified, not intractable, without status epilepticus - Allergy status to other drugs, medicaments and biological substances - Migraine, unspecified, not intractable, without status migrainosus INPATIENT VISIT TRACKING (12 MO.) 04/13/2020 20:00 [facility] [place] TYPE: Critical [facility] COMPLAINT: - COVID 19 DIAGNOSES: - COVID-19 - Rheumatic heart disease, unspecified - Radiographic dye allergy status - Epilepsy, unspecified, not intractable, without status epilepticus - Hyperlipidemia, unspecified - Other specified abnormal findings of blood chemistry - Diarrhea, unspecified - Other termite helper (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 - Allergy status to other drugs, medicaments and biological substances - Nausea with vomiting, unspecified - Hypoxemia [id number]
--- NOTE | 2020-05-15 19:55 | NUR ---
PATIENT ARRIVES VIA STRETCHER WITH RN HAKEEM. ABLE TO PIVOT TO HOSPITAL BED. C/O CHEST PAIN WITH MOVEMENT. 2L OXYGEN BY NC IN PLACE, SPO2 92%. CPOX PLACED ON pt, TELE 2 ON, NSR. VSS. PRIMARY RNS IN ROOM. ORIENTATION TO ROOM PROVIDED. CALL LIGHT IN REACH. DISCUSSED BED REST WITH BATHROOM PRIVILEGES, pt VERBALIZES UNDERSTANDING. SANDWICH BOX PROVIDED.
--- NOTE | 2020-05-15 20:19 | NUR ---
THIS RN IN TO ASSESS PT AND ADMINISTER ORDERED MEDICATIONS. PT ALERT AND ORIENTED AND ANSWERING QUESTIONS APPROPRIATELY. PT ON 2L O2 NC AT THIS TIME SPO2 RANGING FROM 90-92%. PT REPORTS NO SOB AT THIS TIME BUT STATES IT IS DIFFICULT TO TAKE DEEP BREATHS. PT REPORTS HE GETS SOB WITH ACTIVITY. ORDERED MEDICATIONS ADMINISTERED, IVF INFUSING ORDERED. PT GIVEN FOOD/DINNER HE STATED HE WAS HUGNRY. ASSESSMENT COMPLETED DURING THIS TIME. PT REPORTS NO PAIN AND NO FURTHER NEEDS AT THIS TIME. WILL CONTINUE PLAN OF CAREL CALL LIGHT IN REACH, BED IN LOWEST POSITION.
--- NOTE | 2020-05-15 21:52 | NUR ---
CHECKED ON pt. pt REQUESTS TO USE TOILET; SBA TO TOILET. pt RETURNED TO BED AND REPORTS 7/10 PAIN IN LUNGS WITH DEEP BREATHING. 2MG PRN IV MORPHINE ADMINISTERED.
--- NOTE | 2020-05-15 23:50 | NUR ---
THIS RN IN TO CHECK ON PT. PT SLEEPING AT THIS TIME, RESPIRATIONS NOTED AND ARE EVEN AND UNLABORED. PT IN NO APPARENT DISTRESS AND WAS LEFT UNDISTURBED. IVF INFUSING ORDERED, BED IN LOWEST POSITION, CALL LIGHT IN REACH, WILL CONTINUE PLAN OF CARE.
--- NOTE | 2020-05-16 00:50 | NUR ---
THIS RN IN TO CHECK ON PT. IV PUMP ALARMING. IV SITE WNL, IVF RESTARTED. PT AWOKE DURING THIS TIME AND ASKED FOR WATER. WATER PROVIDED FOR PT. PT STATED HIS PRN MORPHINE HELPED WITH HIS PAIN AND STATES IT'S NOW TOLERABLE. PT REPORTS NO FURTHER NEEDS AND STATES HE WILL GO BACK TO SLEEP. CALL LIGHT IN REACH, BED IN LOWEST POSITION, WILL CONTINUE PLAN OF CARE.
--- NOTE | 2020-05-16 02:22 | NUR ---
THIS RN IN TO TAKE PT'S VITALS. PT ASLEEP IN BED ON 3L O2 WITH IVF INFUSING. PT AWOKE EASILY AND STATED HE WAS HAVING 7/10 PAIN WHEN TAKING DEEP BREATHS. PT REQUESTED PRN MORPHINE. PT VITALS TAKEN BP 99/63 (70), PT ALERT AND ORIENTED AND REPORTS NO LIGHTHEADEDNESS OR DIZZYNESS. 2MG MORPHINE ADMINISTERED IV FOR PAIN. PT ASSESSED DURING THIS TIME. PT REPORTS NO FURTHER NEEDS AND STATES HE WILL BE GOING BACK TO SLEEP AFTER USING HIS BEDSIDE URINAL. CALL LIGHT IN REACH, BED IN LOWEST POSITION, WILL CONTINUE PLAN OF CARE.
--- NOTE | 2020-05-16 04:12 | NUR ---
THIS RN IN TO HANG NEW BAG OF PT'S IVF. PT LAYING IN BED SLEEPING ON 3L O2 NC. SPO2 AT 93%. PT RESIPRATIONS EVEN AND UNLABORED. PT IN NO APPARENT DISTRESS AND WAS LEFT UNDISTURBED. WILL CONTINUE PLAN OF CARE. CALL LIGHT IN REACH, BED IN LOWEST POSITION.
--- NOTE | 2020-05-16 07:05 | NUR ---
REPORT RECEIVED FROM ABBI ADHIKARI. PT RESTING IN BED WATCHING TV. PT REPORTS HE HAS ORDERED BREAKFAST. PT REPORTS 0/10 PAIN "UNLESS I TAKE A DEEP BREATH." PT STATES "THE OXGEN REALLY HELPS." PT REMAINS ON 3L O2 BY NC WITH O2 SATURATION AT 93%. TELE #2 READS NORMAL SINUS RYTHEM WITH HEART RATE OF 73. PT DENIES REQUESTS OR COMPLAINTS AT THIS TIME. CALL LIGHT WITHIN REACH, BED RAILS UP.
--- NOTE | 2020-05-16 07:14 | NUR ---
MORNING ASSESSMENT AND MEDICATION DUE. PT CONTINUES RESTING IN BED. PT REPORTS HE NORMALLY TAKES HIS KEPRRA WITH BREAKFAST AND WILL CALL WHEN HE IS READY FOR THIS PARTICULAR MEDICATION. PT REPORTS 4/10 THROBBING HEADACHE. COOL CLOTH APPLIED TO FORHEAD. PT STATES HE NORMALLY TAKES TYELNOL AT HOME, CONSULTED FOR TYLENOL ORDER. PT REPORTS HIS MOST RECIENT SEIZURE WAS "LAST WEEK" AND HES IS SCHEDULED TO SEE A NEUROLOGIST IN [place] ON "THE FIRST WEEK OF MAY." PT REPORTS HE GETS AN AURA BEFORE HAVING A SEIZURE AND WILL CALL NURSING STAFF IF THIS OCCURS. CRACKELS NOTED IN LOWER LOBS OF LUNGS. PT RELUCTANT TO TAKE DEEP BREATHS OR COUGH. PT REMAINS ON 3L O2 BY NC WITH O2 SATURATIONS AT 95%. PT WEANED TO 2L O2 BY NC. PT MAINTINAING O2 SATURATIONS ABOVE 92% ON2L O2 BY NC. PHARMACIST TO BEDSIDE TO TALK WITH PT ABOUT KEPPRA DOSE. DOSE AJUSTED ACCORDINGLY. PT DENIES ADDIITONAL REQUESTS OR COMPLAINTS AT THIS TIME. CALL LIGHT WITHIN REACH. BED RAILS UP. PT AWAITING BREAKFAST.
[2020-05-16] MEDS ORDERED: BENZONATATE100 MG PO (07:19)
[2020-05-16] MEDS ORDERED: VITAMIN D325 MCG PO (07:35)
--- NOTE | 2020-05-16 07:38 | EKG ---
[facility] [address] [place], [place] [address] Signed Sinus tachycardia Otherwise normal ECG When compared with ECG of 01-APR-2020 21:39, No significant change was found Confirmed by MINA MTZ MD ([id number]) on 05/16/2020 7:37:46 AM Electronically Signed By: MINA MTZ MD 05/16/20 0738 PATIENT NAME: JOHNNY GRANDE Electrocardiogram DATE OF : 63 PHYSICIAN: MINA MTZ MD REPORT #: [id number] REPORT IS CONFIDENTIAL AND NOT TO BE RELEASED WITHOUT AUTHORIZATION
--- NOTE | 2020-05-16 09:15 | NUR ---
THIS RN TO ROOM TO CHECK ON PT. JONATHON WATKINS. DOES DOUBLE CHECKED WITH MD PHARMACIST WAS PREVIOUSLY TALKING WITH PT ABOUT NEW DOSAGES. PT REPORTS HE "GOT UP OUT OF BED ON MY OWN TO USE THE RESTROOM." PT REPORTS EXTREEME SHORTNESS OF BREATH AND STATES HE REMOVED HIS OXYGEN WHILE GETTING UP. FALL PRECUATIONS AND SAFETY EDUCATION DONE WITH PT. PT ADVISED THAT HE SOULD NOT GET UP OUT OF BED WITHOUT CALLING NURSING STAFF FOR ASSISTANCE. PT VERBALIZES UNDERSTANDING AND AGREES THAT HE WILL CALL NEXT TIME. PTS O2 SATURATION 91-93% ON 2L O2 BY NC. HEART RATE 71. RESPIRATIONS EVEN AND UNALBORED. PT DENIES ADDITIONAL REQUESTS OR COMPLAINTS AT THIS TIME STATING HE WOULD LIKE TO SHOWER LATER. CALL LIGHT WITHIN REACH. BED RAILS UP.
--- NOTE | 2020-05-16 10:13 | NUR ---
THIS RN TO ROOM WITH MD FOR ROUNDS. PT RESTING WITH EYES CLOSED. PT FOLLOW DIRECTIONS AND ANSWERS QUESTIONS APPROPRITALY, REMAINS DROWSY. PT REMAINS ON 2L O2 BY NC WITH O2 SATURATIOSN 91-94%. MD STATES OK TO MAINTAIN PT ABOVE 90% WITH WORK OF BREATHING TAKEN INTO CONSIDERATION. NORMAL WORK OF BREATING NOTED AT THIS TIME. PT CONTINUES RESTING WITH EYES CLOSED. BED RAILS UP. CALL LIGHT WITHIN REACH.
--- NOTE | 2020-05-16 12:06 | NUR ---
THIS RN TO ROOM TO CHECK ON PT. PT RESTING IN BED, DROWSY BUT RESPONDING APPROPRIATLY TO QUESTIONS. PT REMAINS ON 2L O2 BY NC WITH O2 SATURATIONS 91-94%. RESPRIATIONS EVEN AND UNALBORED. WORK OF BREATHING, WNL. PUMP ALARMING, PT STATES HE WAS TOLD BY THE DOCTOR THAT HIS IV FLUIDS WERE TO STOP AFTER THIS BAG. MD CONSUTLED AND STATES SHE WOULD LIKE FLUIDS TO CONTINUE BUT AT A DECREASED RATE, NEW ORDERS PLACED. PT UPDATED AND VERBALIZES UNDERSTANDING. PT REPORTS HEADACHE HAS RESOLVED. PT REPORTS SHARP PAIN CONTINUES ONLY WITH DEEP BREATHING. NO ADDITIONAL REQUESTS OR COMPLAINTS. CALL LIGHT BrightWhistle REACH. BED RAILS UP. PT EATING LUNCH.
--- NOTE | 2020-05-16 12:53 | NUR ---
AFTERNOON ASSESSMENT DUE. PT TEXTING ON PHONE. PT REPORTS HEADACHE CONTINUES TO BE RESOLVED. PT REPORTS 1/10 CHEST PAIN WITH BREATHING WHICH INCREASES TO 6/10 PAIN WITH DEEP BREATHING. PT DENIES NEED FOR PAIN MEDICATION AT THIS TIME. PT TALKS ABOUT HIS HISTORY WITH SEIZURES PT STATES HE GETS A FEELING OF IMPENDING DOOM PRIOR TO SEIZURES "ITS LIKE I'M STANDING ON EDGE OF A NBA OVER A BIG PIT AND SOMEONE IS COMING BEHIND ME AND WILL PUSH ME IN." PT REPORTS HE HAS BEEN HAVING 3-4 SEIZURES A WEEK "RECIENTLY." PT REPORTS HE HAS NOT YET HAD A SEIZURE THIS WEEK BUT IS WORRIED ABOUT THEM. SEIZURE PRECAUTIONS PUT INTO PLACE INCLUIDNG BED RAIL PADDING AND FLOOR MAT. PT REPORTS EXTREEM SHORTNESS OF BREATH WITH ACTIVTIES INCLUDING STANDING ON THE SIDE OF THE BED TO VOID. PT REMAINS ON 2L O2 BY NC WITH O2 SATURATIONS 92-95%. WORK OF BREATHING IS WITHIN NORMAL LIMITS. PT ABLE TO TALK IN LONG SENTENCES AND STORIES WITHOUT STOPPING TO CATCH HIS BREATH. ABDOMEN SOFT, BOWEL TONES HEARD. PT REPORTS FEELING THAT HE MIGHT BE "A LITTLE BIT" CONSTIPATED. NIO BOWEL ROTEIN ORDERS PLACED. PT DENIES ADDITIONAL REQUESTS OR COMLAINTS AT THIS TIME. BED RAILS UP. SEIZURE PRECAUTIONS IN PLACE. CALL LIGHT WITHIN REACH.
--- NOTE | 2020-05-16 12:58 | NUR ---
SET PATIENT UP FOR A SHOWER SOMETIME TODAY. IT DEPENDS ON HOW HE FEELS. WILL CHECK BACK LATER WITH THE NURSE AND PATIENT.
--- NOTE | 2020-05-16 13:58 | NUR ---
PT IN BED, AND MENTIONED THAT HE IS NOT HAVING A GOOD AM. PT FMENTIONED THAT IT HAS BEEN A TOUGH SEASON ON HIM, REQUESTED PRAYER. GAVE Hollie LOCKEPOST. WILL CONTINUE TO FOLLOW
--- NOTE | 2020-05-16 14:20 | NUR ---
PEDRO, RN ASSUMING CARE OF PT WHILE THIS RN GOES TO ER TO ASSIST WITH SURG. REPORT GIVEN. PEDRO STATES HER QUESTIONS HAVE BEEN ANSWERED.
--- NOTE | 2020-05-16 15:33 | NUR ---
PATIENT IS SLEEPING SOUNDLY, OXYGEN IN PLACE. SPOUSE IS AT BEDSIDE.
--- NOTE | 2020-05-16 16:44 | NUR ---
Spoke with Mak and his . Pt cont. to recover from covid slowly and states now has embolisms. He has not been able to return to work at [employer] as he has not felt well enough. 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 May need 02 at discharge. Feels "down" as his recovery is slow.
--- NOTE | 2020-05-16 17:15 | NUR ---
THIS RN TO ROOM TO CHECK ON PT. PT RESTING IN BED WITH EYES CLOSED. RESPIRATIONS EVEN AND UNLABORED. COPX READS 92-95% ON 2L O2 BY NC. PT DENIES PAIN AND NAUSEA. PT REQUESTS TO SHOWER. DIRECTOR OF DISTRIBUTION TO BEDSIDE TO ASSIST PT WITH SHOWER. IV SALINE LOCKED FOR SHOWER. O2 INCARED TO 4L O2 BY NC FOR ACTIVITY TO EASE DYSPNEA ON EXERTION. AOLNDRA AGARWAL WORKING WITH PT. PTS AT BEDSIDE. NO ADDIITONAL REQUESTS OR COMPLAINTS. CALL LIGHT WITHIN REACH.
--- NOTE | 2020-05-16 18:10 | NUR ---
PT FINISHED WITH SHOWER. PT BACK TO BED AND RESTING WITH EYES CLOSED. IV FLUIDS RESTARTED. PT DENIES PAIN AND NAUSEA AT THIS TIME. PT DECLINES DINNER STATING "i ATE TOO MUCH FOR LUNCH." CONTINIOUS PLUSE OX REMAINS IN PLACE. PT REMAINS ON 2L O2 BY [place] WITH OXYGEN SATURATIONS ABOVE 90%. CURRENTLY 93%. PT DENIES ADDITIONAL REQUESTS OR COMPLAINTS. CALL LIGHT WITHIN REACH. BED RAILS UP. SEIZURE PRECAUTIONS IN PLACE.
--- NOTE | 2020-05-16 18:32 | NUR ---
PT ADMITTED ON 05/15 FOR BILATERAL P.E. PT REMAINS ON BED REST THIS SHIFT BUT FOR SHOWER AND BATHROOM USE. PT TOLERATING REGULAR DIET WITH GOOD APPITITE AND WITHOUT NASUEA. PT WEANED TO 2L O2 BY NC WITH OXYGEN SATURATIONS ABOVE 90%. TELEMETRY MONTORING SHOWS NORMAL SINUS RHYTHEM THIS SHIFT. IV FLUID RATE DECREASED. PT VOIDING QUANTITY SUFFICIENT. WORK OF BREATHING WNL THIS SHIFT. PT HAS HISTORY OF SEIZURES AND REPORTS INCREASED FREQUENCY OVER THE LAST FEW WEEKS. KEPPRA DOES INCREASED AND SEIZURE PRECAUTIONS IN PLACE. PT DROWSY FOR MUCH OF SHIFT. PTS TO BEDSIDE TODAY. PT USES CALL LIGHT APPROPRIATLY.
--- NOTE | 2020-05-16 19:00 | NUR ---
PATIENT TOOK A SHOWER WAS IN THERE I ALSO STAYED IN THERE IN CASE HE NEEDED ANY HELP. NEW GOWN AND SOCKS PAJAMA BOTTOMS. LINENS CHANGED. PATIENT IS NOW SLEEPING.
--- NOTE | 2020-05-16 19:15 | NUR ---
SHIFT REPORT RECEIVED FROM [facility] ABBI MEJIA AT BEDSIDE. pt DROWSY, BUT AWOKE EASILY. NS INFUSING PER MD ORDERS, SITE WNL. CPOX IN PLACE, 2LNC IN PLACE, O2 SAT LOW TO MID 90'S, HR WNL. pt REPORTS SOME PAIN WITH BREATHING, REQUESTING PRN PAIN MEDICATION WITH EVENING MEDS. pt PLEASANT AND COMPLIANT WITH CARE, CALL LIGHT IN REACH. ALONDRA AGARWAL WITH pt ASSISTING WITH VOID. NO FURTHER NEEDS.
--- NOTE | 2020-05-16 20:26 | NUR ---
ASSESSMENT COMPLETE, SCHEDULED MEDS GIVEN (SEE EMAR) ALONG WITH 2MG PRN MORPHINE FOR PAIN R/T DEEP DREATHING. pt REPORTS NONPRODUCTIVE COUGH, LUNG SOUNDS DIM. VSS, 2LNC IN PLACE WITH TELE#2, SINUS RHYTHM. IV FLUIDS REMAIN INFUSING PER MD ORDERS, SITE WNL. BLOOD RETURN NOTED. SIEZURE PRECAUTIONS REMAIN IN PLACE, pt VERBALIZES NEED TO CALL [facility] IF FEELING OF AURA OCCURS AND TO CALL BEFORE GETTING OOB TO VOID. NO FURTHER NEEDS, CALL LIGHT IN REACH. EDUCATION ALSO GIVEN ON NEW BOWEL MEDS (MIRALAX AND SENNA).
--- NOTE | 2020-05-16 21:19 | NUR ---
IN ROOM TO REASSESS PAIN, pt AWAKE AND RESTING IN BED. DENIES PAIN AT THIS TIME AND STATES THE PAIN MEDICATION "REALLY HELPED". NO FURTHER NEEDS, CALL LIGHT IN REACH.
--- NOTE | 2020-05-16 22:17 | NUR ---
PRN TYLENOL GIVEN FOR 3-4/10 PAIN R/T HEADACHE (SEE EMAR). pT AWAKE AND RESTING IN BED, CPOX IN PLACE, 2LNC. O2 SAT 93%, HR 70'S. NO FURTHER NEEDS, CALL LIGHT IN REACH.
--- NOTE | 2020-05-16 23:05 | NUR ---
IN TO ASST PT WITH USING THE URINAL AT THE BEDSIDE, NO FURTHER NEEDS
--- NOTE | 2020-05-16 23:26 | NUR ---
pt RESTING IN BED, EYES CLOSED. RR EVEN AND UNLABORED. 2LNC IN PLACE, O2 SAT AND HR WNL. NO DISTRESS NOTED. CALL LIGHT IN REACH. BED ALARM ON FOR SAFETY.
--- NOTE | 2020-05-17 00:23 | NUR ---
ROUNDED ON pt, pt UP SBA TO VOID VIA URINAL, TOLERATED WELL. pt REMAINS ON 2LNC, O2 SAT LOW TO MID 90'S, HR 60'S. PHONE CHARGING PER pt REQUEST. NO FURTHER NEEDS, CALL LIGHT IN REACH AND BED ALARM ON.
--- NOTE | 2020-05-17 02:36 | NUR ---
IV PUMP BEEPING, HUNG A NEW BAG. REPORTED 7/10 PAIN, PRN GIVEN (SEE MAR). pt UP TO VOID, SBA AT BEDSIDE WITH URINAL. RESTING IN BED. NO REQUESTS AT THIS TIME. CALL LIGHT WITHIN REACH.
--- NOTE | 2020-05-17 03:05 | NUR ---
IN ROOM TO CORRECT LEADS, ASSESSMENT COMPLETE. NO NEW CAHNGES OR CONCERNS, pt REPORTS PAIN IS IMPROVED, RATES 1-2/10 (SEE EMAR). IV SITE WNL, FLUIDS CONTINUE TO INFUSE PER MD ORDERS. NO FURTHER NEEDS, CALL LIGHT IN REACH.
--- NOTE | 2020-05-17 06:50 | NUR ---
AM VITALS DONE, ICE WATER GIVEN, CRACKERS GIVEN
--- NOTE | 2020-05-17 07:17 | NUR ---
REPORT RECEIVED FROM ABBI NIXON. PT RESTINGIN BED READING BIBLE. PT REPORTS 0/10 PAIN AND DENIES NAUSEA. 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 O2 AT 93% ON 2L O2 BY NC WITH HEART RATE OF 56. PT ANTICIPATING BREAKFAST. NO ADDITIONAL REQUESTS OR COMPLAINTS AT THIS TIME. CALL LIGHT LACEYGoAlbertLETITIA GAFFNEY. BED RAILS UP.
--- NOTE | 2020-05-17 07:22 | NUR ---
PT LYING IN BED. SHIFT REPORT RECIEVED BY RN. PT O2 SAT 93% 2L NC. PT GIVEN CRACKERS PER REQUEST. DENIES PAIN. IV CONTINUOUS NS 75ML/HR,PATENT. DENIES SOB. CALL LIGHT IN REACH.
--- NOTE | 2020-05-17 07:38 | NUR ---
pt REPORTS NEW ONSET OF NUMBNESS AND TINGLING IN BILATERAL FINGERS, DENIES FEELINGS OF AURA. DAYSHIFT ABBI MEJIA AWARE, CALL LIGHT IN REACH.
--- NOTE | 2020-05-17 08:05 | NUR ---
CLEAR LIQUID TRAY IN TO PATIENT, PATIENT DENIES OTHER NEEDS AT THIS TIME.
--- NOTE | 2020-05-17 08:39 | NUR ---
MORNING ASSESSMENT AND MEDICATION DUE. PT RESTING IN BED. PT GAVE HIS BREAKFAST TO HIS STATING "ITS TOO BURGOS TO EAT LYING IN BED." MD CONSULTED AND STATES IT OK TO GET UP TO CHAIR FOR BREAKFAST. PT REPORTS 4/10 PAIN WITH DEEP INHALATION. PT DENIES PAIN WHEN RESTING COMFORTABLY. PT DENIES NEED FOR PAIN MEDICATION. PT DENIES NASUEA. LUNG SOUNDS CLEAR BUT FOR COURSE SOUNDS IN RIGHT LOWER LOB. PT HAS DRY COUGH WITH DEEP BREATHING. O2 AT 95% ON 2L O2 BY NC. ROOM AIR TRIAL ATTEMPTED. PT TOELRATES ROOM AIR WITH O2 SATURATIONS ABOVE 90%. COPX REMAINS IN PLACE. PT REPORTS PREVIOUS NUMBNESS AND TINGLING IN HANDS BUT STATES IT RESOLVED AFTER STRAIGHTENING AND MOVING HIS ARMS MORE. PT CONTINUES TO REPORTS FEELINGS OF CONSTIPATION. SEE MAR FOR MEDICATION GIVEN. STAND BY ASSIST UP TO CHAIR FOR BREAKFAST. PT TOELRATEST AMBULATION WELL WITH MINIMAL SHORTNESS OF BREATH. O2 SATURATIONS REMAIN ABOVE 90% EVEN WITH AMBULATION. PT REMAINS ON ROOM AIR AT THIS TIME WITH O2 SATRUATIONS 91-94%. PT DENIES ADDITIONAL REQUESTS OR COMPLAINTS. CALL LIGHT WITHIN REACH. PTS AT BEDSIDE
--- NOTE | 2020-05-17 09:07 | NUR ---
PT LYING IN BED. ASSESSMENT COMPLETE. SCHEDULED MEDS GIVEN. I AND O'S DONE. VS STABLE. TITRATED O2 FROM 2L TO RA. O2 SAT 90- 94% LUNG SOUNDS CLEAR. PT DENIES PAIN OR PAIN MEDICATIONS. RR WNL WITH UNLABORED BREATHING. BOWEL SOUNDS ACTIVE. STANDBY ASSIST TO THE CHAIR. TOLERATED WELL. DENIES SOB. SET UP MEAL TRAY. CALL LIGHT IN REACH. IN ROOM. NO FURTHER NEEDS AT THIS TIME.
[2020-05-17] MEDS ORDERED: ELIQUIS5 MG PO (09:47)
[2020-05-17] MEDS ORDERED: LEVETIRACETAM500 MG PO (09:48)
--- NOTE | 2020-05-17 09:48 | NUR ---
MD TO BEDSIDE FOR ROUNDS. PT ANTICIPATING DISCHARGE TODAY. PT REMAINS ON ROOM AIR WITH O2 SATURATIONS ABOVE 92%. PIV SALINE LOCKED PER MD ORDER. PT UP WITH STAND BY ASSIST TO VOID IN RESTROOM. PT BACK TO BED. O2 SATURATIONS REMAIN ABOVE 90% WITH ACTIVITY. NO ADDITIONAL REQUESTS OR COMPLAINTS. CALL LIGHT WITHIN REACH. BED RAILS UP.
--- NOTE | 2020-05-17 10:20 | NUR ---
SEO ASSISTANT REPORTS TO THIS RN THAT PT HAS MILD BLOODY NOSE. THIS RN TO ROOM TO CHECK ON PT. PT HAS GAUZE IN EACH NOSTRIL. NO BLOOD NOTED DRINAING FROM NOSE AT THIS TIME. EDUCATION DONE WITH PT. VERBALIZES UNDERSTANDING OF INSTRUCTIONS AND STATES HIS QUESTIONS HAVE BEEN ANSWERED. CALL LIGHT WITHIN REACH. WILL CONTINUE TO MONITOR.
--- NOTE | 2020-05-17 10:25 | NUR ---
SBA PATIENT UP IN BATHRROM BRUSHING TEETH. PATIENT VERY CONCERNED AFTER BLOWING NOSE AND SEEING SMALL AMOUNT OF BLOOD 2 SQUARES OF DEANGELOE PROVIDED RN NOTIFIED. PATIENT BACK TO BED, WARM BLANKET PROVIDED, CALL LIGHT AND PERSONAL ITEMS WITHIN REACH
--- NOTE | 2020-05-17 11:02 | NUR ---
PT LYING IN BED. C/O SOB. TITRATED O2 TO 1L NC. O2 SAT 93%. REPOSITIONED PT IN BED. STATES THAT HE "FEELS BETTER" CALL LIGHT IN REACH. NO FURTHER NEEDS AT THIS TIME.
--- NOTE | 2020-05-17 11:12 | NUR ---
PT ALERT, ORIENTED AND DEALING WITH NOSE BLEED FROM [employer]. PT PLANS TO DC TODAY AND HIS WILL BE HERE FOR DC. GAVE ENCOURAGEMENT, SUPPORT AND BLESSING.
--- NOTE | 2020-05-17 11:12 | NUR ---
THIS RN TO ROOM TO CHECK ON PT. PT WAS PLACED ON 1L O2 BY NC BY ABBI ENRIQUEZ. THIS RN TO ROOM. PT WEANED BACK TO ROOM AIR. PT NOTED TO HAVE 94% OXYGEN SATURATIONS WITH DEEP BREATHS AND WHILE TALKING, ON ROOM AIR. I.S. PROVIDED. PT REACHES 1250ML. PT UP TO RESTROOM WITH STAND BY ASSIST. PT STEADY ON FEET. O2 REMAINS ABOVE 90% ON ROOM AIR. PT REPORTS DIZZINESS WHEN FIRST GETTING UP. PT ENCORUAGED TO SIT ON EDGE OF BED PRIOR TO STANDING. PT REPORTS "THAT REALLY HELPS." PT VOIDS CLEAR YELLOW URINE WITHOUT ISSUE. STAND BY ASSIST BACK TO BED. NO ADDITONAL REQUESTS OR COMPLAINTS. PT REMAINS ON ROOM AIR WITH O2 SATURATIONS ABOVE 90%. BED RAILS UP. CALL LIGHT WITHIN REACH. SEIZURE PRECAUTIONS IN PLACE.
--- NOTE | 2020-05-17 12:19 | NUR ---
PT LYING IN BED. DENIES SOB. RR WNL WITH UNLABORED BREATHING. VS STABLE. 02 SAT 93% RA. EDUCATION GIVEN WITH DISCHARGE INSTRUCTIONS. PT VERBALIZED UNDERSTANDING. PHARMACY GIVEN EDUCATION ON MEDICATIONS. IV SALINE LOCKED. STANDBY ASSIST TO THE CHAIR. TOLERATED WELL. CALL LIGHT IN REACH. NO FURTHER NEEDS AT THIS TIME.
--- NOTE | 2020-05-17 13:10 | NUR ---
PT READY FOR DISCHARGE, PT FINISHED WITH LUNCH, PTS ARRIVED. IV DC'D BY ALONDRA MCDONALD. CATHETER INTACT,GAUZE AND COBAN APPLIED. DISCHARGE INSTRUCTIONS REVIEWED WITH PT INCLUDING IN DEPTH SIGNS AND SYMPTOMS OF BLEEDING AND WHEN TO CALL THE DOCTOR. PT VERBZLIES UNDERSTANDING AND STATES HIS QUESTIONS HAVE BEEN ANSWERED. PTS STATES SHE HAS NO ADDITIONAL QUESTIONS OR CONCERNS REGARDING DISCHARGE INSTRUCTIONS WELL. PT DRESSES SELF WITH STAND BY ASSIST. O2 SATURATION REMAINS ABOVE 90% ON ROOM AIR. PT AMBULATES TO WHEEL CHAIR INDEPENDANTLY AND IS WHEELED FROM MED/SURG, ALL BELONGINGS WITH PT.
--- NOTE | 2020-05-17 13:18 | NUR ---
PT UP IN BED. CHANGED TO OWN CLOTHING AND TOLERATED WELL. DENIES SOB. O2 SAT 91% RA. PT DENIES PAIN. ALL BELONGINGS WITH PT. DC IV AND TIP INTACT. NO FURTHER NEEDS. TOOK PT HOME.
== END 2020-05-17 13:10 | disposition home or self-care (01) ==
LOC: ED 13:37 → MS 13:38
PROVIDERS: ADMIT Internal Medicine; ATTEND Internal Medicine
DX: I26.99 Other pulmonary embolism without acute cor pulmonale (principal); G40.909 Epilepsy, unspecified, not intractable, without status epilepticus; Z88.8 Allergy status to other drugs, medicaments and biological substances; Z91.041 Radiographic dye allergy status; Z86.16 Personal history of COVID-19
CPT/HCPCS: 36415; 71045; 71260; 80048; 80053; 83735; 83880; 84484; 85025; 85379; 93005; 93010; 94762; 99285-25; C9803; J2270; J2405; J2550; J7030; Q9967; U0003

== ENCOUNTER 2020-08-06 16:54 | Emergency (ER) | payer OTHER ==
[~2020-08-06] VITALS: Ht 177.8 cm; Wt 98.4 kg
[~2020-08-06 16:54] MED LIST changes: +BENZONATATE100 MG PO; +ELIQUIS5 MG PO; +VITAMIN D325 MCG PO
--- OUTSIDE RECORDS SUMMARY | 2020-08-06 17:00 | XMS ---
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 Security [employer] Offbearer Events No recent Security Events currently on file CRITERIA MET - Group Notification - 6 ED Visits in 6 Months - [facility] - Has Care Guidelines CARE PROVIDERS Sky Quach [facility] 09/06/2018-Current PHONE: [phone] KELSEY WILLARDLM Internal Medicine 03/13/2019-Current PHONE: Unknown Maria Elena has no Care Guidelines for this patient. Care History Medical/Surgical 04/15/2020 [facility] Patient admitted as Covid 19 positive with exacerbated and on going symptoms. 07/14/2019 [facility] Patient advised at Clinic visit on 07/06/2019 to stay home 72 hours after no symptoms that have been reported as resolved during ED visit on 07/14/2019.\T\ nbsp; Patient reports of cardiac concerns.\T\nbsp; Per discussion with spouse he has seen franchise consultant in [facility] multiple times, but they can\T\#39;t seem to help him.\T\nbsp; Patient does not see franchise consultant again until September.\ T\nbsp; \T\quot;No use in follow up visit with PCP at this time\T\quot;.\T\ nbsp; Scheduled appointment with Dr. Willard on 08/31/2019. 09/06/2018 [facility] - Patient is currently established with [facility]. If patient is seen in the ED during business hours. Please contact CHWs at [facility]. Care Recommendation: If this patient [...] E.D. VISIT COUNT (12 MO.) 6 [facility]. TOTAL 6 NOTE: Visits indicate total known visits. ED/UCC VISIT TRACKING (12 MO.) 08/06/2020 16:[address] [facility] [place] TYPE: Emergency COMPLAINT: - BLOOD IN STOOL 05/15/2020 13:[address] [facility] [place] TYPE: Emergency COMPLAINT: - DIFFICULTY BREATHING 04/13/2020 18:14 [facility] [place] TYPE: Emergency COMPLAINT: - FLU LIKE SYMPTOMS 04/08/2020 15:23 [facility] [place] [facility] [place] TYPE: Emergency COMPLAINT: - COUGH,NAUSEA,HEADACHE DIAGNOSES: - Other correction (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 - Cough - Radiographic [...] - Pain in right shoulder - Other termination clerk (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 02/11/2020 11:04 [facility] [place] TYPE: Emergency COMPLAINT: - SEIZURE DIAGNOSES: - Allergy status to other drugs, medicaments and biological substances - Other correction (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 - Allergy status to other drugs, medicaments and biological substances - Epilepsy, unspecified, not intractable, without status epilepticus - Pure hypercholesterolemia, unspecified - Migraine, unspecified, not intractable, without status migrainosus INPATIENT VISIT TRACKING (12 MO.) 05/28/2020 09:36 [facility] TYPE: Neurology DIAGNOSES: 42267. Localization-related (focal) (partial) idiopathic epilepsy and epileptic syndromes with seizures of localized onset, intractable, without status epilepticus 32227. epilepsy 26891. Hyperlipidemia, unspecified 68245. Other specified personal risk factors, not elsewhere classified 64093. Vitamin deficiency, unspecified 60998. Localization-related (focal) (partial) idiopathic epilepsy and epileptic syndromes with seizures of localized onset, intractable, without status epilepticus 35562. Cough 96023. Other pulmonary embolism without acute cor pulmonale 05/15/2020 13:38 [facility] [place] TYPE: Observation COMPLAINT: - PULMONARY EMBOLI DIAGNOSES: - Allergy status to other drugs, medicaments and biological substances - Other pulmonary embolism without acute cor pulmonale - Epilepsy, unspecified, not intractable, without status epilepticus - Radiographic dye allergy status 04/13/2020 20:00 [facility] [place] TYPE: Critical Care COMPLAINT: - COVID 19 DIAGNOSES: - COVID-19 - Rheumatic heart disease, unspecified - Radiographic dye allergy status - Epilepsy, unspecified, not intractable, without status epilepticus - Hyperlipidemia, unspecified - Other specified abnormal findings of blood chemistry - Diarrhea, unspecified - Other termination clerk (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 - Allergy status to other drugs, medicaments and biological substances - Nausea with vomiting, unspecified - Hypoxemia [email or web address]
[2020-08-06] MEDS ORDERED: OXCARBAZEPINE300 MG PO (17:08)
== END 2020-08-06 18:59 | disposition home or self-care (01) ==
LOC: ED 16:54
DX: K92.2 Gastrointestinal hemorrhage, unspecified (principal); G40.909 Epilepsy, unspecified, not intractable, without status epilepticus; E78.00 Pure hypercholesterolemia, unspecified; G43.909 Migraine, unspecified, not intractable, without status migrainosus; Z88.8 Allergy status to other drugs, medicaments and biological substances; Z91.041 Radiographic dye allergy status; Z79.899 Other long term (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
CPT/HCPCS: 80053; 85025; 99284

== ENCOUNTER 2020-10-04 15:24 | Emergency (ER) | payer OTHER ==
[~2020-10-04] VITALS: Ht 177.8 cm; Wt 98.4 kg
[~2020-10-04 15:24] MED LIST changes: +OXCARBAZEPINE300 MG PO
--- OUTSIDE RECORDS SUMMARY | 2020-10-04 15:32 | XMS ---
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 - Has Care Guidelines CARE PROVIDERS Sky Quach [facility] 09/06/2018-Current PHONE: [phone] KELSEY WILLARDLM Internal Medicine 03/13/2019-Current PHONE: Unknown Maria Elena has no Care Guidelines for this patient. Care History Medical/Surgical 04/15/2020 [facility] Patient admitted as Covid 19 positive with exacerbated and on going symptoms. 07/14/2019 [facility] Patient advised at Clinic visit on 07/06/2019 to stay home 72 hours after no symptoms that have been reported as resolved during ED visit on 07/14/2019.\T\ nbsp; Patient reports of cardiac concerns.\T\nbsp; Per discussion with spouse he has seen product mgr in [facility] multiple times, but they can\T\#39;t seem to help him.\T\nbsp; Patient does not see product mgr again until September.\ T\nbsp; \T\quot;No use in follow up visit with PCP at this time\T\quot;.\T\ nbsp; Scheduled appointment with Dr. Willard on 08/31/2019. 09/06/2018 [facility] - Patient is currently established with [facility]. If patient is seen in the ED during business hours. Please contact CHWs at [facility]. Care Recommendation: If this patient has [...] care. E.D. VISIT COUNT (12 MO.) 7 [facility]. TOTAL 7 NOTE: Visits indicate total known visits. ED/UCC VISIT TRACKING (12 MO.) 10/04/2020 15:24 [facility] [place] TYPE: Emergency COMPLAINT: - ALLERGIC REACTION 08/06/2020 16:55 [facility] [place] TYPE: Emergency COMPLAINT: - BLOOD IN STOOL DIAGNOSES: - Gastrointestinal hemorrhage, unspecified - Allergy status to other drugs, medicaments and biological substances - Pure hypercholesterolemia, unspecified - Migraine, unspecified, not intractable, without status migrainosus - Other retirement (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 - Epilepsy, unspecified, not intractable, without status epilepticus - Radiographic dye allergy status 05/15/2020 13:37 [facility] [place] TYPE: Emergency COMPLAINT: - DIFFICULTY BREATHING 04/13/2020 18:14 [facility] [place] TYPE: Emergency COMPLAINT: - FLU LIKE SYMPTOMS 04/08/2020 15:[address] [facility] [place] [facility] [place] TYPE: Emergency COMPLAINT: - COUGH,NAUSEA,HEADACHE DIAGNOSES: - Other intermediate accountant (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 - Cough - Radiographic dye allergy status - Allergy status to other drugs, medicaments and biological substances - COVID-19 04/01/2020 21:[address] [facility] [place] [place] TYPE: Emergency COMPLAINT: - CHEST PAIN DIAGNOSES: - Chest pain, unspecified - Migraine, unspecified, not intractable, without status migrainosus - Allergy status to other drugs, medicaments and biological substances - Pure hypercholesterolemia, unspecified - Radiographic dye allergy status - Epilepsy, unspecified, not intractable, without status epilepticus - Pain in right shoulder - Other intermediate accountant (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 02/11/2020 11:[address] [facility] [place] [place] TYPE: Emergency COMPLAINT: - SEIZURE DIAGNOSES: - Allergy status to other drugs, medicaments and biological substances - Other intermediate accountant (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 - Allergy status to other drugs, medicaments and biological substances - Epilepsy, unspecified, not intractable, without status epilepticus - Pure hypercholesterolemia, unspecified - Migraine, unspecified, not intractable, without status migrainosus INPATIENT VISIT TRACKING (12 MO.) 05/28/2020 09:36 [facility] TYPE: Neurology DIAGNOSES: 46871. Localization-related (focal) (partial) idiopathic epilepsy and epileptic syndromes with seizures of localized onset, intractable, without status epilepticus 34343. epilepsy 78216. Hyperlipidemia, unspecified 35909. Other specified personal risk factors, not elsewhere classified 23040. Vitamin deficiency, unspecified 91241. Localization-related (focal) (partial) idiopathic epilepsy and epileptic syndromes with seizures of localized onset, intractable, without status epilepticus 02280. Cough 50202. Other pulmonary embolism without acute cor pulmonale [...] blood chemistry - Diarrhea, unspecified - Other intermediate accountant (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 - Allergy status to other drugs, medicaments and biological substances - Nausea with vomiting, unspecified - Hypoxemia [email or web address]
[2020-10-04] MEDS ORDERED: MUPIROCIN22 GM TOP (15:42)
[2020-10-04] MEDS ORDERED: VISTARIL25 MG PO (15:42)
== END 2020-10-04 16:28 | disposition home or self-care (01) ==
LOC: ED 15:24
DX: L30.9 Dermatitis, unspecified (principal); E78.00 Pure hypercholesterolemia, unspecified; G43.909 Migraine, unspecified, not intractable, without status migrainosus; G40.909 Epilepsy, unspecified, not intractable, without status epilepticus; Z88.8 Allergy status to other drugs, medicaments and biological substances; Z91.041 Radiographic dye allergy status; Z79.899 Other long term (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
CPT/HCPCS: 99282

== ENCOUNTER 2020-12-18 12:10 | Emergency (ER) | payer OTHER ==
[~2020-12-18] VITALS: Ht 177.8 cm; Wt 98.4 kg
[~2020-12-18 12:10] MED LIST changes: +MUPIROCIN22 GM TOP; +VISTARIL25 MG PO
--- OUTSIDE RECORDS SUMMARY | 2020-12-18 12:14 | XMS ---
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 Care History Medical/Surgical 04/15/2020 [facility] Patient admitted as Covid 19 positive with exacerbated and on going symptoms. 07/14/2019 [facility] Patient advised at Clinic visit on 07/06/2019 to stay home 72 hours after no symptoms that have been reported as resolved during ED visit on 07/14/2019.\T\ nbsp; Patient reports of cardiac concerns.\T\nbsp; Per discussion with spouse he has seen back stayer in [facility] multiple times, but they can\T\#39;t seem to help him.\T\nbsp; Patient does not see back stayer again until September.\ T\nbsp; \T\quot;No use in follow up visit with PCP at this time\T\quot;.\T\ nbsp; Scheduled appointment with Dr. Willard on 08/31/2019. 09/06/2018 [facility] - Patient is currently established with [facility]. If patient is seen in the ED during business hours. Please contact CHWs at [facility]. Care Recommendation: If this patient [...] care. E.D. VISIT COUNT (12 MO.) 8 [facility]. TOTAL 8 NOTE: Visits indicate total known visits. ED/UCC VISIT TRACKING (12 MO.) 12/18/2020 12:11 [facility] [place] TYPE: Emergency COMPLAINT: - R SIDE LOWER ABD PAIN 10/04/2020 15:24 [facility] [place] TYPE: Emergency COMPLAINT: - RASH DIAGNOSES: - Allergy status to other drugs, medicaments and biological substances - Rash and other nonspecific skin eruption - Other buttermaker helper (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 - Dermatitis, unspecified - Pure hypercholesterolemia, unspecified - Migraine, unspecified, not intractable, without status migrainosus - Epilepsy, unspecified, not intractable, without status epilepticus - Radiographic dye allergy status 08/06/2020 16:55 [facility] [place] TYPE: Emergency COMPLAINT: - BLOOD IN STOOL DIAGNOSES: - Gastrointestinal hemorrhage, unspecified - Allergy status to other drugs, medicaments and biological substances - Pure hypercholesterolemia, unspecified - Migraine, unspecified, not intractable, without status migrainosus - Other buttermaker helper (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 - Epilepsy, unspecified, not intractable, without status epilepticus - Radiographic dye allergy status 05/15/2020 13:[address] [facility] [place] TYPE: Emergency COMPLAINT: - DIFFICULTY BREATHING 04/13/2020 18:14 [facility] [place] TYPE: Emergency COMPLAINT: - FLU LIKE SYMPTOMS 04/08/2020 15:23 [facility] [place] [facility] [place] TYPE: Emergency COMPLAINT: - COUGH,NAUSEA,HEADACHE DIAGNOSES: - Other nursing home (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 - Cough - Radiographic dye allergy status - Allergy status to other drugs, medicaments and biological substances - COVID-19 04/01/2020 21:30 [facility] [place] [place] TYPE: Emergency COMPLAINT: - CHEST PAIN DIAGNOSES: - Chest pain, unspecified - Migraine, unspecified, not intractable, without status migrainosus - Allergy status to other drugs, medicaments and biological substances - Pure hypercholesterolemia, unspecified - Radiographic dye allergy status - Epilepsy, unspecified, not intractable, without status epilepticus - Pain in right shoulder - Other nursing home (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 02/11/2020 11:04 [facility] [place] TYPE: Emergency COMPLAINT: - SEIZURE DIAGNOSES: - Allergy status to other drugs, medicaments and biological substances - Other nursing home (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 - Allergy status to other drugs, medicaments and biological substances - Epilepsy, unspecified, not intractable, without status epilepticus - Pure hypercholesterolemia, unspecified - Migraine, unspecified, not intractable, without status migrainosus INPATIENT VISIT TRACKING (12 MO.) 12/09/2020 05:52 [facility] TYPE: Neuro Surgery DIAGNOSES: . Localization-related (focal) (partial) idiopathic epilepsy and epileptic syndromes with seizures of localized onset, intractable, without status epilepticus . Other malformations of cerebral vessels 05/28/2020 09:36 [facility] TYPE: Neurology DIAGNOSES: 15249. Localization-related (focal) (partial) idiopathic epilepsy and epileptic syndromes with seizures of localized onset, intractable, without status epilepticus 15130. epilepsy 35945. Hyperlipidemia, unspecified 94945. Other specified personal risk factors, not elsewhere classified 64810. Vitamin deficiency, unspecified 47814. Localization-related (focal) (partial) idiopathic epilepsy and epileptic syndromes with seizures of localized onset, intractable, without status epilepticus 37053. Cough 59203. Other pulmonary embolism without acute cor pulmonale [...] blood chemistry - Diarrhea, unspecified - Other nursing home (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 - Allergy status to other drugs, medicaments and biological substances - Nausea with vomiting, unspecified - Hypoxemia [email or web address]
[2020-12-18] MEDS ORDERED: OXYCODONE HCL5 MG PO (12:33)
[2020-12-18] MEDS ORDERED: TRANSDERM-SCOP1 EACH TD (13:07)
[2020-12-18] MEDS ORDERED: ONDANSETRON ODT4 MG PO (13:08)
[2020-12-18] MEDS ORDERED: SENEXON-S 50-81 EACH PO (13:09)
[2020-12-18] MEDS ORDERED: POLYETHYLENE GL17 GM PO (13:10)
== END 2020-12-18 16:20 | disposition home or self-care (01) ==
LOC: ED 12:10
DX: R10.31 Right lower quadrant pain (principal); E78.00 Pure hypercholesterolemia, unspecified; G40.909 Epilepsy, unspecified, not intractable, without status epilepticus; G43.909 Migraine, unspecified, not intractable, without status migrainosus; M19.90 Unspecified osteoarthritis, unspecified site; K85.90 Acute pancreatitis without necrosis or infection, unspecified; Z87.891 Personal history of nicotine dependence; Z88.8 Allergy status to other drugs, medicaments and biological substances; Z88.6 Allergy status to analgesic agent; Z91.041 Radiographic dye allergy status; Z79.899 Other long term (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
CPT/HCPCS: 74177; 80053; 81001; 85025; 96374; 99284-25; J2405; Q9967

== ENCOUNTER 2020-12-29 18:33 | Emergency (ER) | payer OTHER ==
[~2020-12-29] VITALS: Ht 177.8 cm; Wt 98.4 kg
[~2020-12-29 18:33] MED LIST changes: +ONDANSETRON ODT4 MG PO; +OXYCODONE HCL5 MG PO; +POLYETHYLENE GL17 GM PO; +SENEXON-S 50-81 EACH PO; +TRANSDERM-SCOP1 EACH TD
--- OUTSIDE RECORDS SUMMARY | 2020-12-29 18:36 | XMS ---
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 Willard - he would like to see him BELINDA. I reached out to Nadira Florentino to have patient scheduled for follow up. Care History Medical/Surgical 04/15/2020 [facility] Patient admitted as Covid 19 positive with exacerbated and on going symptoms. 07/14/2019 [facility] Patient advised at Clinic visit on 07/06/2019 to stay home 72 hours after no symptoms that have been reported as resolved during ED visit on 07/14/2019.\T\ nbsp; Patient reports of cardiac concerns.\T\nbsp; Per discussion with spouse he has seen transaction processor in [facility] multiple times, but they can\T\#39;t seem to help him.\T\nbsp; Patient does not see transaction processor again until September.\ T\nbsp; \T\quot;No use in follow up visit with PCP at this time\T\quot;.\T\ nbsp; Scheduled appointment with Dr. Willard on 08/31/2019. 09/06/2018 [facility] - Patient is currently established with [facility]. If patient is seen in the ED during business hours. Please contact CHWs at [facility]. Care Recommendation: If this patient has [...] providing care. E.D. VISIT COUNT (12 MO.) 9 [facility] TOTAL 9 NOTE: Visits indicate total known visits. ED/UCC VISIT TRACKING (12 MO.) 12/29/2020 18:34 [facility] [place] TYPE: Emergency COMPLAINT: - POST OP PROBLEM 12/18/2020 12:11 [facility] [place] TYPE: Emergency COMPLAINT: - R SIDE LOWER ABD PAIN DIAGNOSES: - Acute pancreatitis without necrosis or infection, unspecified - Right lower quadrant pain - Pure hypercholesterolemia, unspecified - Unspecified osteoarthritis, unspecified site - Epilepsy, unspecified, not intractable, without status epilepticus - Other care home (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 - Personal history of nicotine dependence - Radiographic dye allergy status - Allergy status to analgesic agent - Allergy status to other drugs, medicaments and biological substances - Migraine, unspecified, not intractable, without status migrainosus 10/04/2020 15:24 [facility] [place] TYPE: Emergency COMPLAINT: - RASH DIAGNOSES: - Allergy status to other drugs, medicaments and biological substances - Rash and other nonspecific skin eruption - Other care home (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 - Dermatitis, unspecified - [...] not intractable, without status migrainosus - Other care home (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 - Epilepsy, unspecified, not intractable, without status epilepticus - Radiographic dye allergy status 05/15/2020 13:37 [facility] [place] TYPE: Emergency COMPLAINT: - DIFFICULTY BREATHING 04/13/2020 18:14 [facility] [place] TYPE: Emergency COMPLAINT: - FLU LIKE SYMPTOMS 04/08/2020 15:23 [facility] [place] TYPE: Emergency COMPLAINT: - COUGH,NAUSEA,HEADACHE DIAGNOSES: - Other care home (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 - Cough - Radiographic dye allergy status - Allergy status to other drugs, medicaments and biological substances - COVID-19 [facility]01[facility]2020 [facility] [place] [facility] COMPLAINT: - CHEST PAIN DIAGNOSES: - Chest pain, unspecified - Migraine, unspecified, not intractable, without status migrainosus - Allergy status to other drugs, medicaments and biological substances - Pure hypercholesterolemia, unspecified - Radiographic dye allergy status - Epilepsy, unspecified, not intractable, without status epilepticus - Pain in right shoulder - Other care home (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 [facility]11/2020 [facility] [place] [facility] COMPLAINT: - SEIZURE DIAGNOSES: - Allergy status to other drugs, medicaments and biological substances - Other manager of patient (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 - Allergy status to other drugs, medicaments and biological substances - Epilepsy, unspecified, not intractable, without status epilepticus - Pure hypercholesterolemia, unspecified - Migraine, unspecified, not intractable, without status migrainosus INPATIENT VISIT TRACKING (12 MO.) 12/09/2020 05:52 [facility] TYPE: Neuro Surgery DIAGNOSES: 71410. Localization-related (focal) (partial) idiopathic epilepsy and epileptic syndromes with seizures of localized onset, intractable, without status epilepticus 47849. Other malformations of cerebral vessels 05/28/2020 09:36 [facility] TYPE: Neurology DIAGNOSES: 24655. Localization-related (focal) (partial) idiopathic epilepsy and epileptic syndromes with seizures of localized onset, intractable, without status epilepticus 59862. epilepsy 39115. Hyperlipidemia, unspecified 81264. Other specified personal risk factors, not elsewhere classified 90459. Vitamin deficiency, unspecified 71643. Localization-related (focal) (partial) idiopathic epilepsy and epileptic syndromes with seizures of localized onset, intractable, without status epilepticus 54095. Cough 32740. Other pulmonary embolism without acute cor pulmonale [...] blood chemistry - Diarrhea, unspecified - Other manager of patient (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 - Allergy status to other drugs, medicaments and biological substances - Nausea with vomiting, unspecified - Hypoxemia [email or web address]
[2020-12-29] MEDS ORDERED: KEPPRA1000 MG (19:11)
== END 2020-12-29 22:28 | disposition home or self-care (01) ==
LOC: ED 18:33
DX: I97.89 Other postprocedural complications and disorders of the circulatory system, not elsewhere classified (principal); E78.00 Pure hypercholesterolemia, unspecified; G43.909 Migraine, unspecified, not intractable, without status migrainosus; M19.90 Unspecified osteoarthritis, unspecified site; G40.909 Epilepsy, unspecified, not intractable, without status epilepticus; Z87.891 Personal history of nicotine dependence; Z91.041 Radiographic dye allergy status; Z88.8 Allergy status to other drugs, medicaments and biological substances; Z88.6 Allergy status to analgesic agent; Z79.899 Other long term (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
CPT/HCPCS: 70487; 80053; 85025; 99284-25; J2405

== ENCOUNTER 2021-04-05 07:55 | Emergency (ER) | payer OTHER ==
[~2021-04-05] VITALS: Ht 177.8 cm; Wt 103.1 kg
[~2021-04-05 07:55] MED LIST changes: +KEPPRA1000 MG
--- OUTSIDE RECORDS SUMMARY | 2021-04-05 07:58 | XMS ---
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 Willard - he would like to see him BELINDA. I reached out to Nadira Florentino to have patient scheduled for follow up. Care History Medical/Surgical 01/01/2021 [facility] Patient will schedule with neurosurgeon regarding post op pain in mouth. 04/15/2020 [facility] Patient admitted as Covid 19 positive with exacerbated and on going symptoms. 07/14/2019 [facility] Patient advised at Clinic visit on 07/06/2019 to stay home 72 hours after no symptoms that have been reported as resolved during ED visit on 07/14/2019.\T\ nbsp; Patient reports of cardiac concerns.\T\nbsp; Per discussion with spouse he has seen spout liner in [facility] multiple times, but they can\T\#39;t seem to help him.\T\nbsp; Patient does not see spout liner again until September.\ T\nbsp; \T\quot;No use in follow up visit with PCP at this time\T\quot;.\T\ nbsp; Scheduled appointment with Dr. Willard on 08/31/2019. [place]. VISIT COUNT (12 MO.) [address] [facility] [place] TOTAL 8 NOTE: Visits indicate total known visits. ED/[facility] VISIT TRACKING (12 MO.) 04/05/2021 07:56 [facility] [place] TYPE: Emergency COMPLAINT: - SORE THROAT, RASH ON BACK 12/29/2020 18:34 [place] [place] TYPE: Emergency COMPLAINT: - POST OP PROBLEM DIAGNOSES: - Other specified disorders of teeth and supporting structures - Other postprocedural complications and disorders of the circulatory system, not elsewhere classified - Allergy status to analgesic agent - Radiographic dye allergy status - Unspecified osteoarthritis, unspecified site - Migraine, unspecified, not intractable, without status migrainosus - Allergy status to other drugs, medicaments and biological substances - Other long term care pharmacist (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 - Pure hypercholesterolemia, unspecified - Epilepsy, unspecified, not intractable, without status epilepticus - Personal history of nicotine dependence 12/18/2020 12:[address] [facility] [address] [facility] TYPE: Emergency COMPLAINT: - R SIDE LOWER ABD PAIN DIAGNOSES: - Acute pancreatitis without necrosis or infection, unspecified - Right lower quadrant pain - Pure hypercholesterolemia, unspecified - Unspecified osteoarthritis, unspecified site - Epilepsy, unspecified, not intractable, without status epilepticus - Other long term care pharmacist (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 - Personal history of nicotine dependence - Radiographic dye allergy status - Allergy status to analgesic agent - Allergy status to other drugs, medicaments and biological substances - Migraine, unspecified, not intractable, without status migrainosus 10/04/2020 15:[address] [facility] [address] [place] TYPE: Emergency COMPLAINT: - RASH DIAGNOSES: - Allergy status to other drugs, medicaments and biological substances - Rash and other nonspecific skin eruption - Other long term care pharmacist (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 - Dermatitis, unspecified - Pure hypercholesterolemia, unspecified - Migraine, unspecified, not intractable, without status migrainosus - Epilepsy, unspecified, not intractable, without status epilepticus - Radiographic dye allergy status 08/06/2020 16:[address] [facility] [address] [place] TYPE: Emergency COMPLAINT: - BLOOD IN STOOL DIAGNOSES: - Gastrointestinal hemorrhage, unspecified - Allergy status to other drugs, medicaments and biological substances - Pure hypercholesterolemia, unspecified - Migraine, unspecified, not intractable, without status migrainosus - Other long term care pharmacist (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 - Epilepsy, unspecified, not intractable, without status epilepticus - Radiographic dye allergy status 05/15/2020 13:[address] [facility] [address] [place] TYPE: Emergency COMPLAINT: - DIFFICULTY BREATHING 04/13/2020 18:14 [facility] [place] TYPE: Emergency COMPLAINT: - FLU LIKE SYMPTOMS 04/08/2020 15:23 [facility] [place] TYPE: Emergency COMPLAINT: - COUGH,NAUSEA,HEADACHE DIAGNOSES: - Other long term care pharmacist (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 - Cough - Radiographic dye allergy status - Allergy status to other drugs, medicaments and biological substances - COVID-19 INPATIENT VISIT TRACKING (12 MO.) 12/09/2020 05:52 [facility] TYPE: Neuro Surgery DIAGNOSES: . Localization-related (focal) (partial) idiopathic epilepsy and epileptic syndromes with seizures of localized onset, intractable, without status epilepticus . Other malformations of cerebral vessels 05/28/2020 09:36 [facility] TYPE: Neurology DIAGNOSES: 08133. Localization-related (focal) (partial) idiopathic epilepsy and epileptic syndromes with seizures of localized onset, intractable, without status epilepticus 55976. epilepsy 79278. Hyperlipidemia, unspecified 04018. Other specified personal risk factors, not elsewhere classified 48460. Vitamin deficiency, unspecified 55239. Localization-related (focal) (partial) idiopathic epilepsy and epileptic syndromes with seizures of localized onset, intractable, without status epilepticus 51912. Cough 45923. Other pulmonary embolism without acute cor pulmonale [...] blood chemistry - Diarrhea, unspecified - Other jail (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 - Allergy status to other drugs, medicaments and biological substances - Nausea with vomiting, unspecified - Hypoxemia [id number]
[2021-04-05] MEDS ORDERED: CLOTRIMAZOLE-BE15 GM TOP (08:20)
[2021-04-05] MEDS ORDERED: NASAL DECONGEST30 MG PO (09:33)
== END 2021-04-05 09:50 | disposition home or self-care (01) ==
LOC: ED 07:55
DX: J02.9 Acute pharyngitis, unspecified (principal); Z20.822 Contact with and (suspected) exposure to COVID-19; G40.909 Epilepsy, unspecified, not intractable, without status epilepticus; E78.00 Pure hypercholesterolemia, unspecified; G43.909 Migraine, unspecified, not intractable, without status migrainosus; Z87.891 Personal history of nicotine dependence; Z88.8 Allergy status to other drugs, medicaments and biological substances; Z91.041 Radiographic dye allergy status; Z79.899 Other long term (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
CPT/HCPCS: 99283; C9803; U0003

== ENCOUNTER 2021-04-12 06:57 | Emergency (ER) | payer OTHER ==
[~2021-04-12] VITALS: Ht 177.8 cm; Wt 99.8 kg
[~2021-04-12 06:57] MED LIST changes: +CLOTRIMAZOLE-BE15 GM TOP; +NASAL DECONGEST30 MG PO
--- OUTSIDE RECORDS SUMMARY | 2021-04-12 07:00 | XMS ---
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 Willard - he would like to see him BELINDA. I reached out to Nadira Florentino to have patient scheduled for follow up. Care History Medical/Surgical 04/08/2021 [facility] Tried to contact patient to advise again of Walk In Clinic for non-emergent health concerns. Voicemail is not set up. 04/03/2021 Dr. Willard acknowledged patient's concern of lingering cough due to Covid positve 04/2020. 04/07/2021 [facility] - Patient is currently established with [facility]. If patient is seen in the ED during business hours. Please contact CHWs at [facility]. Care Recommendation: If this patient has had 5 or more Emergency Department visits in the last 12 months. Patient will require education on the scope and purpose of the ED as an acute care provider not a Primary Care Provider and should not be utilized for chronic conditions. These are guidelines and the provider should exercise clinical judgment when providing care. 01/01/2021 [facility] Patient will schedule with neurosurgeon regarding post op pain in mouth. E.D. VISIT COUNT (12 MO.) 8 [facility]. TOTAL 8 NOTE: Visits indicate total known visits. ED/UCC VISIT TRACKING (12 MO.) 04/12/2021 06:58 [facility] [place] TYPE: Emergency COMPLAINT: - SEIZURE 04/05/2021 07:56 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 [place] TYPE: Emergency COMPLAINT: - POST OP [...] drugs, medicaments and biological substances - Other penitentiary (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 - Pure hypercholesterolemia, unspecified - Epilepsy, unspecified, not intractable, without status epilepticus - Personal history of nicotine dependence 12/18/2020 12:11 [facility] [place] TYPE: Emergency COMPLAINT: - R SIDE LOWER ABD PAIN DIAGNOSES: - Acute pancreatitis without necrosis or infection, unspecified - Right lower quadrant pain - Pure hypercholesterolemia, unspecified - Unspecified osteoarthritis, unspecified site - Epilepsy, unspecified, not intractable, without status epilepticus - 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 - Personal history of nicotine dependence - Radiographic dye allergy status - Allergy status to analgesic agent - Allergy status to other drugs, medicaments and biological substances - Migraine, unspecified, not intractable, without status migrainosus 10/04/2020 15:24 [facility] [place] [facility] [place] TYPE: Emergency COMPLAINT: - RASH DIAGNOSES: - Allergy status to other drugs, medicaments and biological substances - Rash and other nonspecific skin eruption - 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 - Dermatitis, unspecified - Pure hypercholesterolemia, unspecified - Migraine, unspecified, not intractable, without status migrainosus - Epilepsy, unspecified, not intractable, without status epilepticus - Radiographic dye allergy status 08/06/2020 16:55 [facility] [place] [facility] [place] TYPE: Emergency COMPLAINT: - BLOOD IN STOOL DIAGNOSES: - Gastrointestinal hemorrhage, unspecified - Allergy status to other drugs, medicaments and biological substances - Pure hypercholesterolemia, unspecified - Migraine, unspecified, not intractable, without status migrainosus - Other penitentiary (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 - Epilepsy, unspecified, not intractable, without status epilepticus - Radiographic dye allergy status 05/15/2020 13:37 [facility] [place] TYPE: Emergency COMPLAINT: - DIFFICULTY BREATHING 04/13/2020 18:14 [facility] [place] [place] TYPE: Emergency COMPLAINT: - FLU LIKE SYMPTOMS INPATIENT VISIT TRACKING (12 MO.) 12/09/2020 05:52 [facility] TYPE: Neuro Surgery DIAGNOSES: 63212. Localization-related (focal) (partial) idiopathic epilepsy and epileptic syndromes with seizures of localized onset, intractable, without status epilepticus 78826. Other malformations of cerebral vessels 05/28/2020 09:36 [facility] TYPE: Neurology DIAGNOSES: 80530. Localization-related (focal) (partial) idiopathic epilepsy and epileptic syndromes with seizures of localized onset, intractable, without status epilepticus 37126. epilepsy 08239. Hyperlipidemia, unspecified 16583. Other specified personal risk factors, not elsewhere classified 70234. Vitamin deficiency, unspecified 31828. Localization-related (focal) (partial) idiopathic epilepsy and epileptic syndromes with seizures of localized onset, intractable, without status epilepticus 35134. Cough 78022. Other pulmonary embolism without acute cor pulmonale [...] blood chemistry - Diarrhea, unspecified - Other penitentiary (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 - Allergy status to other drugs, medicaments and biological substances - Nausea with vomiting, unspecified - Hypoxemia [email or web address]
[2021-04-12] MEDS ORDERED: LEVETIRACETAM500 MG PO (07:38)
[2021-04-12] MEDS ORDERED: KEPPRA500 MG PO (07:40)
--- NOTE | 2021-04-12 23:16 | EKG ---
[facility] [address] [place] [address] Signed Normal sinus rhythm Normal ECG When compared with ECG of 15-MAY-2020 13:58, Vent. rate has decreased BY 36 BPM Confirmed by MINA MTZ MD ([id number]) on 04/12/2021 11:16:10 PM Electronically Signed By: MINA MTZ MD 04/12/21 2316 PATIENT NAME: HARJINDERJOHNNY Electrocardiogram DATE OF : 63 PHYSICIAN: MINA MTZ MD REPORT #: [id number] REPORT IS CONFIDENTIAL AND NOT TO BE RELEASED WITHOUT AUTHORIZATION
== END 2021-04-12 12:28 | disposition home or self-care (01) ==
LOC: ED 06:57
DX: S00.532A Contusion of oral cavity, initial encounter (principal); G40.909 Epilepsy, unspecified, not intractable, without status epilepticus; E78.00 Pure hypercholesterolemia, unspecified; G43.909 Migraine, unspecified, not intractable, without status migrainosus; M19.90 Unspecified osteoarthritis, unspecified site; Z87.891 Personal history of nicotine dependence; Z88.8 Allergy status to other drugs, medicaments and biological substances; Z91.041 Radiographic dye allergy status; Z79.899 Other long term (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; W06.XXXA Fall from bed, initial encounter
CPT/HCPCS: 80053; 83690; 84484; 85025; 93005; 93010; 96374; 96375; 99284-25; J1885; J1953

== ENCOUNTER 2021-06-30 17:46 | Emergency (ER) | payer OTHER ==
[~2021-06-30] VITALS: Ht 177.8 cm; Wt 99.8 kg
--- OUTSIDE RECORDS SUMMARY | 2021-06-30 17:50 | XMS ---
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 Willard - he would like to see him BELINDA. I reached out to Nadira Florentino to have patient scheduled for follow up. Care History Medical/Surgical 04/08/2021 [facility] Tried to contact patient to advise again of Walk In Clinic for non-emergent health concerns. Voicemail is not set up. 04/03/2021 Dr. Willard acknowledged patient's concern of lingering cough due to Covid positve 04/2020. 04/07/2021 [facility] - Patient is currently established with [facility]. If patient is seen in the ED during business hours. Please contact CHWs at [facility]. Care Recommendation: If this patient has had 5 or more Emergency Department visits in the last 12 months. Patient will require education on the scope and purpose of the ED as an acute care provider not a Primary Care Provider and should not be utilized for chronic conditions. These are guidelines and the provider should exercise clinical judgment when providing care. 01/01/2021 [facility] Patient will schedule with neurosurgeon regarding post op pain in mouth. E.D. VISIT COUNT (12 MO.) 7 [facility]. TOTAL 7 NOTE: Visits indicate total known visits. ED/UCC VISIT TRACKING (12 MO.) 06/30/2021 17:47 [facility] [place] TYPE: Emergency COMPLAINT: - SHORTNESS OF BREATH, HEADACHE 04/12/2021 06:58 [facility] [place] TYPE: Emergency COMPLAINT: - SEIZURE DIAGNOSES: - Unspecified osteoarthritis, unspecified site - Radiographic dye allergy status - Other roasterman (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 - Pure hypercholesterolemia, unspecified - Personal history of nicotine dependence - Allergy status to other drugs, medicaments and biological substances - Fall from bed, initial encounter - Migraine, unspecified, not intractable, without status migrainosus - Contusion of oral cavity, initial encounter - Unspecified convulsions - Epilepsy, unspecified, not intractable, without status epilepticus 04/05/2021 07:56 [facility] [place] TYPE: Emergency COMPLAINT: - SORE THROAT, RASH ON BACK DIAGNOSES: - Migraine, unspecified, not intractable, without status migrainosus - Other fci (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 - Epilepsy, unspecified, not intractable, without status epilepticus - Radiographic dye allergy status - Personal history of nicotine dependence - Acute pharyngitis, unspecified - Pure hypercholesterolemia, unspecified - Allergy status to other drugs, medicaments and biological substances 12/29/2020 18:34 [facility] [place] TYPE: Emergency COMPLAINT: - POST [...] drugs, medicaments and biological substances - Other fci (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 - Pure hypercholesterolemia, unspecified - Epilepsy, unspecified, not intractable, without status epilepticus - Personal history of nicotine dependence 12/18/2020 12:11 [facility] [place] TYPE: Emergency COMPLAINT: - R SIDE LOWER ABD PAIN DIAGNOSES: - Acute pancreatitis without necrosis or infection, unspecified - Right lower quadrant pain - Pure hypercholesterolemia, unspecified - Unspecified osteoarthritis, unspecified site - Epilepsy, unspecified, not intractable, without status epilepticus - Other roasterman (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 - Personal history of nicotine dependence - Radiographic dye allergy status - Allergy status to analgesic agent - Allergy status to other drugs, medicaments and biological substances - Migraine, unspecified, not intractable, without status migrainosus 10/04/2020 15:24 [facility] [place] TYPE: Emergency COMPLAINT: - RASH DIAGNOSES: - Allergy status to other drugs, medicaments and biological substances - Rash and other nonspecific skin eruption - Other roasterman (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 - Dermatitis, unspecified - [...] not intractable, without status migrainosus - Other roasterman (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 - Epilepsy, unspecified, not intractable, without status epilepticus - Radiographic dye allergy status INPATIENT VISIT TRACKING (12 MO.) 12/09/2020 05:52 [facility] TYPE: Neuro Surgery DIAGNOSES: 70384. Localization-related (focal) (partial) idiopathic epilepsy and epileptic syndromes with seizures of localized onset, intractable, without status epilepticus . Other malformations of cerebral vessels [email or web address]
[2021-06-30] MEDS ORDERED: DOCUPRENE100 MG PO (18:33)
[2021-06-30] MEDS ORDERED: SENNA8.6 MG PO (18:33)
[2021-06-30] MEDS ORDERED: BAYER CHEWABLE81 MG PO (18:34)
[2021-06-30] MEDS ORDERED: VENTOLIN HFA18 GM (18:34)
[2021-06-30] MEDS ORDERED: LEVETIRACETAM500 MG PO (18:54)
[2021-06-30] MEDS ORDERED: LOMOTIL TABLET1 EACH PO (20:49)
[2021-06-30] MEDS ORDERED: ULTRAM50 MG PO (20:49)
--- NOTE | 2021-06-30 21:02 | EKG ---
[facility] [address] [facility] [place], [place] [address] Signed Sinus bradycardia Otherwise normal ECG When compared with ECG of 12-APR-2021 11:24, No significant change was found Confirmed by MINA MTZ MD ([id number]) on 06/30/2021 9:02:08 PM Electronically Signed By: MINA MTZ MD 06/30/212101 PATIENT NAME: JOHNNY GRANDE Electrocardiogram DATE OF : 63 PHYSICIAN: MINA MTZ MD REPORT #: [id number] REPORT IS CONFIDENTIAL AND NOT TO BE RELEASED WITHOUT AUTHORIZATION
== END 2021-06-30 21:27 | disposition home or self-care (01) ==
LOC: ED 17:46
DX: K52.9 Noninfective gastroenteritis and colitis, unspecified (principal); R51.9 Headache, unspecified; G40.909 Epilepsy, unspecified, not intractable, without status epilepticus; E78.00 Pure hypercholesterolemia, unspecified; G43.909 Migraine, unspecified, not intractable, without status migrainosus; Z87.891 Personal history of nicotine dependence; Z88.8 Allergy status to other drugs, medicaments and biological substances; Z91.041 Radiographic dye allergy status; Z79.899 Other long term (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; Z79.82 Long term (current) use of aspirin
CPT/HCPCS: 36415; 71045; 80053; 83735; 84484; 85025; 86140; 93005; 93010; 96374; 99285-25; J2270; J7030; U0003

== ENCOUNTER 2021-12-21 06:04 | Emergency (ER) | payer OTHER ==
[~2021-12-21] VITALS: Ht 177.8 cm; Wt 99.8 kg
[~2021-12-21 06:04] MED LIST changes: +BAYER CHEWABLE81 MG PO; +DOCUPRENE100 MG PO; +LOMOTIL TABLET1 EACH PO; +SENNA8.6 MG PO; +ULTRAM50 MG PO; +VENTOLIN HFA18 GM
--- OUTSIDE RECORDS SUMMARY | 2021-12-21 06:08 | XMS ---
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 Willard - he would like to see him BELINDA. I reached out to Nadira Florentino to have patient scheduled for follow up. Care History Medical/Surgical 07/02/2021 [facility] Patient seen in ED after Clinic hours. Follow up visit with Dr. Willard on 07/03/2107/01/2021 [facility] Follow up visit with DR. Willard on 07/03/2021 04/08/2021 [facility] Tried to contact patient to advise again of Walk In Clinic for non-emergent health concerns. Voicemail is not set up. 04/03/2021 Dr. Willard acknowledged patient's concern of lingering cough due to Covid positve 04/2020. [place] VISIT COUNT (12 MO.) 5 [facility] TOTAL 5 NOTE: Visits indicate total known visits. ED/UCC VISIT TRACKING (12 MO.) 12/21/2021 06:04 [facility] [place] TYPE: Emergency COMPLAINT: - FLU SYMPTOMS 06/30/2021 17:47 [facility] [place] TYPE: Emergency COMPLAINT: - SHORTNESS OF BREATH, HEADACHE DIAGNOSES: - Allergy status to other drugs, medicaments and biological substances - Migraine, unspecified, not intractable, without status migrainosus - prison (current) use of aspirin - Headache, unspecified - Pure hypercholesterolemia, unspecified - Other halfway (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 - Radiographic dye allergy status - Contact with and (suspected) exposure to COVID-19 - Noninfective gastroenteritis and colitis, unspecified - Personal history of nicotine dependence - Epilepsy, unspecified, not intractable, without status epilepticus 04/12/2021 06:58 [facility] [place] TYPE: Emergency COMPLAINT: - SEIZURE DIAGNOSES: - Personal history of nicotine dependence - Other halfway (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 - Unspecified convulsions - Unspecified osteoarthritis, unspecified site - Migraine, unspecified, not intractable, without status migrainosus - Allergy status to other drugs, medicaments and biological substances - Pure hypercholesterolemia, unspecified - Epilepsy, unspecified, not intractable, without status epilepticus - Radiographic dye allergy status - Contusion of oral cavity, initial encounter - Fall from bed, initial encounter 04/05/2021 07:56 [facility] [place] TYPE: Emergency COMPLAINT: - SORE THROAT, RASH ON BACK DIAGNOSES: - Personal history of nicotine dependence - Epilepsy, unspecified, not intractable, without status epilepticus - Migraine, unspecified, not intractable, without status migrainosus - Pure hypercholesterolemia, unspecified - Acute pharyngitis, unspecified - Radiographic dye allergy status - Other halfway (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 - Allergy status to other drugs, medicaments and biological substances - Contact with and (suspected) exposure to COVID-19 12/29/2020 18:[address] [facility] [place] TYPE: Emergency COMPLAINT: - POST OP PROBLEM DIAGNOSES: - Unspecified osteoarthritis, unspecified site - Allergy status to analgesic agent - Epilepsy, unspecified, not intractable, without status epilepticus - Other specified disorders of teeth and supporting structures - Other termite treater (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 - Migraine, unspecified, not intractable, without status migrainosus - Radiographic dye allergy status - Personal history of nicotine dependence - Other postprocedural complications and disorders of the circulatory system, not elsewhere classified - Pure hypercholesterolemia, unspecified - Allergy status to other drugs, medicaments and biological substances INPATIENT VISIT TRACKING (12 MO.) No inpatient visits to display in this time frame [email or web address]
[2021-12-21] MEDS ORDERED: VENTOLIN HFA18 GM INH (07:32)
[2021-12-21] MEDS ORDERED: DECADRON6 MG PO (07:32)
== END 2021-12-21 08:35 | disposition home or self-care (01) ==
LOC: ED 06:04
DX: U07.1 COVID-19 (principal); G40.909 Epilepsy, unspecified, not intractable, without status epilepticus; E78.00 Pure hypercholesterolemia, unspecified; G43.909 Migraine, unspecified, not intractable, without status migrainosus; M19.90 Unspecified osteoarthritis, unspecified site; Z87.891 Personal history of nicotine dependence; Z88.8 Allergy status to other drugs, medicaments and biological substances; Z91.041 Radiographic dye allergy status; Z79.899 Other long term (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; Z79.82 Long term (current) use of aspirin
CPT/HCPCS: 36415; 71045; 80053; 81001; 85025; 87502; 87880; 94640; 94667; 96361; 96374; 96375; 99284-25; C9803; J1100; J7121; U0003

== ENCOUNTER 2022-10-22 15:38 | Emergency (ER) | payer OTHER ==
[~2022-10-22] VITALS: Ht 177.8 cm; Wt 108.4 kg
[~2022-10-22 15:38] MED LIST changes: +DECADRON6 MG PO
--- OUTSIDE RECORDS SUMMARY | 2022-10-22 15:46 | XMS ---
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 Willard - he would like to see him BELINDA. I reached out to Nadira Florentino to have patient scheduled for follow up. Care History Medical/Surgical 07/02/2021 [facility] Patient seen in ED after Clinic hours. Follow up visit with Dr. Willard on 07/03/2107/01/2021 [facility] Follow up visit with DR. Willard on 07/03/2021 04/08/2021 [facility] Tried to contact patient to advise again of Walk In Clinic for non-emergent health concerns. Voicemail is not set up. 04/03/2021 Dr. Willard acknowledged patient's concern of lingering cough due to Covid positve 04/2020. [place] VISIT COUNT (12 MO.) 3 [facility]. TOTAL 3 NOTE: Visits indicate total known visits. ED/UCC VISIT TRACKING (12 MO.) 10/22/2022 15:[address] [facility] [place] TYPE: Emergency COMPLAINT: - WEAKNESS 04/02/2022 04:[address] 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
[2022-10-22] MEDS ORDERED: MEDROL4 M1 PO (18:43)
[2022-10-22 20:05] VITALS: BP 135/65
--- NOTE | 2022-10-23 06:31 | EKG ---
[facility] [address] [facility] [place] [address] Signed Normal sinus rhythm borderline prolonged DC interval When compared with ECG of 27-MAY-2022 11:15, prolonged DC seen on ekg 06/30/21 Confirmed by HUGO RODRIGUEZ MD ([id number]) on 10/23/2022 6:31:06 AM Electronically Signed By: HUGO RODRIGUEZ 10/23/22 0631 PATIENT NAME: JOHNNY GRANDE Electrocardiogram DATE OF : 63 PHYSICIAN: HUGO RODRIGUEZ REPORT #: [id number] REPORT IS CONFIDENTIAL AND NOT TO BE RELEASED WITHOUT AUTHORIZATION
== END 2022-10-22 20:07 | disposition home or self-care (01) ==
LOC: ED 15:38
DX: G43.909 Migraine, unspecified, not intractable, without status migrainosus (principal); J06.9 Acute upper respiratory infection, unspecified; G40.909 Epilepsy, unspecified, not intractable, without status epilepticus; E78.00 Pure hypercholesterolemia, unspecified; Z88.8 Allergy status to other drugs, medicaments and biological substances; Z88.6 Allergy status to analgesic agent; Z20.822 Contact with and (suspected) exposure to COVID-19; Z91.041 Radiographic dye allergy status; Z79.82 Long term (current) use of aspirin; Z79.899 Other long term (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; Z87.891 Personal history of nicotine dependence
CPT/HCPCS: 36415; 71045; 80053; 83880; 84484; 85025; 87502; 93005; 93010; 96374; 96375; 99284 25; C9803; J1200; J2765; J7030; U0002

== ENCOUNTER 2024-01-21 14:28 | Emergency (ER) | payer OTHER ==
[~2024-01-21] VITALS: Ht 177.8 cm; Wt 110.3 kg
[~2024-01-21 14:28] MED LIST changes: +MEDROL4 M1 PO
[2024-01-21] MEDS ORDERED: PERCOCET 5-3251 EACH PO (16:56)
[2024-01-21 17:20] VITALS: BP 116/71
== END 2024-01-21 17:20 | disposition home or self-care (01) ==
LOC: ED 14:28
DX: M25.531 Pain in right wrist (principal); M25.532 Pain in left wrist; G40.909 Epilepsy, unspecified, not intractable, without status epilepticus; Z87.891 Personal history of nicotine dependence; Z88.8 Allergy status to other drugs, medicaments and biological substances; Z91.041 Radiographic dye allergy status; Z79.82 Long term (current) use of aspirin; Z79.899 Other long term (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
CPT/HCPCS: 99283

== ENCOUNTER 2024-02-26 20:35 | Emergency (ER) | payer OTHER ==
[~2024-02-26] VITALS: Ht 177.8 cm; Wt 110.0 kg
[~2024-02-26 20:35] MED LIST changes: +PERCOCET 5-3251 EACH PO
[2024-02-26 20:59] LABS: BASOPHILS 0.8 % (0-2); EOSINOPHILS 2.4 % (0-6); HEMATOCRIT 48.1 % (35.0-50.0); HEMOGLOBIN 16.4 g/dL (12.0-18.0); LYMPHOCYTES 40.2 % (24-44); MCH 30.1 (27-36); MCHC 34.1 g/dl (30-36); MCV 88.4 fl (81-99); MONOCYTES 7.4 % (0-12); NEUTROPHILS 49.2 % (39-80); PLATELET COUNT 189 K/uL (140-440); RBC 5.44 M/ul (4.3-5.7); RDW 12.6 (10.5-15.0)
[2024-02-26 21:17] LABS: ALBUMIN 3.3 g/dL (3.4-5.0); ALBUMIN/GLOBULIN RATIO 1.06 (1.1-2.4); ANION GAP 10.8 (7-21); BILIRUBIN, TOTAL 0.4 ng/dL (0.2-1.0); BUN/CREATININE RATIO 17.02 (6.0-28.6); CALCIUM 8.3 mg/dL (8.5-10.1); CREATININE, SERUM 0.94 mg/dL (0.70-1.30); POTASSIUM 3.8 mmol/L (3.5-5.1); PROTEIN, TOTAL 6.4 g/dL (6.4-8.2); TSH, 3RD GENERATION 8.357 uIU/mL (0.358-3.740)
[2024-02-26] MEDS ORDERED: PROCHLORPERAZINE EDISYLATE 10 MG/2 ML VIAL IV ONE (22:45)
[2024-02-26] MEDS ORDERED: KETOROLAC TROMETHAMINE 30 MG/ML VIAL IV ONE (22:45)
[2024-02-26] MEDS ORDERED: diphenhydrAMINE HCL 50 MG/ML VIAL IV ONE (22:45)
[2024-02-26 23:18] VITALS: BP 118/74
--- NOTE | 2024-02-27 12:18 | EKG ---
[facility] [address] [facility] [place] [address] Signed Normal sinus rhythm Normal ECG When compared with ECG of 26-FEB-2024 20:45, (Unconfirmed) No significant change was found Confirmed by Igor Phelan MD ([id number]) on 02/27/2024 12:18:34 PM Electronically Signed By: IGOR PHELAN DO 02/27/24 1218 PATIENT NAME: HARJINDERJOHNNY Electrocardiogram DATE OF : 63 PHYSICIAN: IGOR PHELAN DO REPORT #: [id number] REPORT IS CONFIDENTIAL AND NOT TO BE RELEASED WITHOUT AUTHORIZATION
== END 2024-02-26 23:18 | disposition home or self-care (01) ==
LOC: ED 20:35
PROVIDERS: Internal Medicine
DX: G43.909 Migraine, unspecified, not intractable, without status migrainosus (principal); Z87.891 Personal history of nicotine dependence; Z79.899 Other long term (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; Z91.041 Radiographic dye allergy status; Z88.8 Allergy status to other drugs, medicaments and biological substances
CPT/HCPCS: 36415; 70450; 80053; 83735; 84436; 84439; 84443; 84484; 85025; 93005; 93010; 96374; 96375; 99285-25; J0780; J1200; J1885

== ENCOUNTER 2024-04-24 11:13 | Emergency (ER) | payer OTHER ==
[~2024-04-24] VITALS: Ht 177.8 cm; Wt 111.1 kg
[2024-04-24 11:53] LABS: BASOPHILS 0.7 % (0-2); EOSINOPHILS 1.6 % (0-6); HEMATOCRIT 48.5 % (35.0-50.0); HEMOGLOBIN 17.1 g/dL (12.0-18.0); MCH 30.6 (27-36); MCHC 35.2 g/dl (30-36); MONOCYTES 7.3 % (0-12); NEUTROPHILS 54.4 % (39-80); PLATELET COUNT 190 K/uL (140-440); RBC 5.57 M/ul (4.3-5.7); RDW 12.6 (10.5-15.0)
[2024-04-24 12:10] LABS: ALBUMIN 3.4 g/dL (3.4-5.0); ALBUMIN/GLOBULIN RATIO 1.13 (1.1-2.4); ANION GAP 9.9 (7-21); BILIRUBIN, TOTAL 0.6 ng/dL (0.2-1.0); BUN/CREATININE RATIO 12.17 (6.0-28.6); CALCIUM 8.7 mg/dL (8.5-10.1); CREATININE, SERUM 1.15 mg/dL (0.70-1.30); POTASSIUM 3.9 mmol/L (3.5-5.1); PROTEIN, TOTAL 6.4 g/dL (6.4-8.2)
[2024-04-24 12:56] LABS: BILIRUBIN, URINE NEGATIVE (negative); BLOOD/HGB, URINE NEGATIVE (Negative); KETONE, URINE NEGATIVE (Negative); LEUK ESTERASE, URINE NEGATIVE (negative); NITRITE, URINE NEGATIVE (negative)
[2024-04-24 14:01] VITALS: BP 115/77
== END 2024-04-24 14:00 | disposition home or self-care (01) ==
LOC: ED 11:13
PROVIDERS: Emergency Medicine
DX: R10.31 Right lower quadrant pain (principal); G40.909 Epilepsy, unspecified, not intractable, without status epilepticus; E78.00 Pure hypercholesterolemia, unspecified; G43.909 Migraine, unspecified, not intractable, without status migrainosus; Z87.891 Personal history of nicotine dependence; Z88.8 Allergy status to other drugs, medicaments and biological substances; Z91.041 Radiographic dye allergy status; Z79.82 Long term (current) use of aspirin; Z79.899 Other long term (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
CPT/HCPCS: 36415; 74176; 80053; 81003; 83690; 85025; 99284-25